=== PATIENT | female | born 1945 | race Caucasian/White ===

== ENCOUNTER → 2017-05-22 10:31 | Outpatient (CLI) | payer MEDICARE, BC, SELFPAY ==
[2017-05-22 12:24] LABS: Absolute Lymphocyte Count 1.19 X10^3/ul (0.83-4.51); Absolute Neutrophil Count 3.3 X10^3/uL (2.0-7.7); Basophil# 0.02 X10^3/uL; Basophil% 0.4 % (0-1); Eosinophil# 0.06 X10^3/uL; Eosinophils% 1.2 % (0-5); Hematocrit 46.4 % (37-47); Hemoglobin 15.3 g/dl (12.0-15.0); Lymphocyte # 1.19 X10^3/ul (4.0); Lymphocyte % 23.4 % (19-41); Mean Corpuscular Hgb 29.7 pg (27.0-32.0); Mean Corpuscular Volume 89.9 fL (81-99); Mean Platelet Vol. 12.7 fl (6.2-12.0); Monocyte# 0.49 X10^3/uL; Monocyte% 9.6 % (0-10); Neutrophil # 3.31 X10^3/uL (2.7-7.7); Neutrophil % 65.2 % (47-70); Platelet Count 206 K/mm3 (150-450); RBC Distribution Width CV 13.2 % (11.6-14.6); RBC Distribution Width SD 43.5 fl (35.1-43.9); Red Blood Count 5.16 M/mm3 (4.2-5.4); White Blood Count 5.1 K/mm3 (4.4-11.0)
[2017-05-22 12:27] LABS: POSITIVE COUNT NO; POSITIVE DIFFERENTIAL NO; POSITIVE MORPHOLOGY NO
[2017-05-22 12:31] LABS: ALB/GLOB Ratio 1.1 RATIO (0.9-2.4); AST(SGOT) 23 U/L (15-37); Alanine Aminotransfer ALT/SGPT 31 U/L (13-56); Albumin, Serum 3.9 g/dL (3.2-5.0); Alkaline Phosphatase 60 U/L (45-117); Anion Gap 8 (5-15); BUN 16 mg/dL (7-18); Calcium,Total 9.1 mg/dL (8.5-10.1); Chloride 108 mmol/L (98-107); Creatinine, Serum 0.94 mg/dL (0.55-1.02); EST Glomerular Filtration Rate 62 mL/min (>60); Est Glom Filt Rate - Afr Amer 75 mL/min (>60); Globulin 3.5 g/dL (2.2-4.2); Glucose 112 mg/dL (74-106); Protein, Total 7.4 g/dL (6.4-8.2); Sodium Level 140 mmol/L (136-145)
== END ==
PROVIDERS: Family Provider Family Medicine; PCP Family Medicine; Visit Provider Internal Medicine Rheumatology
DX: M06.4 Inflammatory polyarthropathy (principal); Z79.899 Other long term (current) drug therapy; M47.897 Other spondylosis, lumbosacral region; M21.40 Flat foot [pes planus] (acquired), unspecified foot; K21.9 Gastro-esophageal reflux disease without esophagitis; R51 Headache; J45.909 Unspecified asthma, uncomplicated; Z90.5 Acquired absence of kidney
CPT/HCPCS: 36415; 80053; 85025

== ENCOUNTER → 2017-06-14 14:57 | Outpatient (CLI) | payer MEDICARE, BC, SELFPAY ==
--- NOTE | 2017-06-14 15:02 | RAD_ITS ---
STUDY: X-RAY - THORACIC SPINE REASON FOR EXAM: Female, 71 years old. Thoracic back pain. TECHNIQUE: 2 view(s) of the thoracic spine were obtained. COMPARISON: Prior thoracic spine films of October 30, 2016 FINDINGS: Mild generalized increased thoracic kyphosis. There is no substantial scoliosis. Normal thoracic vertebrae and endplates. Mild disc narrowing and spondylitic endplate changes at most levels with moderate degenerative disc changes at T5-6 and T3-4. The soft tissue structures are unremarkable. RAD/Thoracic Spine 3 Views IMPRESSION: Mild increased kyphosis without a substantial scoliosis. Mild to moderate degenerative disc changes in the pattern as described above. No substantial changes from the prior examination. Negative for fracture, osteolytic or blastic bone lesion. Electronically Signed: Leena Pritchard MD at 15:30 EST , Service support ,
== END ==
PROVIDERS: Family Provider Family Medicine; PCP Family Medicine; Visit Provider Nurse Practitioner Family
DX: M54.6 Pain in thoracic spine (principal)
CPT/HCPCS: 72072

== ENCOUNTER → 2017-08-09 09:46 | Outpatient (CLI) | payer MEDICARE, BC, SELFPAY ==
[2017-08-09 12:06] LABS: Absolute Lymphocyte Count 1.04 X10^3/ul (0.83-4.51); Absolute Neutrophil Count 3.5 X10^3/uL (2.0-7.7); Basophil# 0.02 X10^3/uL; Basophil% 0.4 % (0-1); Eosinophil# 0.06 X10^3/uL; Eosinophils% 1.2 % (0-5); Hematocrit 44.9 % (37-47); Hemoglobin 14.9 g/dl (12.0-15.0); Lymphocyte # 1.04 X10^3/ul (4.0); Lymphocyte % 21.1 % (19-41); Mean Corp Hgb Conc 33.2 g/gl (32-36); Mean Corpuscular Hgb 30.1 pg (27.0-32.0); Mean Corpuscular Volume 90.7 fL (81-99); Mean Platelet Vol. 12.2 fl (6.2-12.0); Monocyte# 0.32 X10^3/uL; Monocyte% 6.5 % (0-10); Neutrophil % 70.8 % (47-70); Platelet Count 210 K/mm3 (150-450); RBC Distribution Width CV 13.2 % (11.6-14.6); RBC Distribution Width SD 43.6 fl (35.1-43.9); Red Blood Count 4.95 M/mm3 (4.2-5.4); White Blood Count 4.9 K/mm3 (4.4-11.0)
[2017-08-09 12:08] LABS: POSITIVE COUNT NO; POSITIVE DIFFERENTIAL NO; POSITIVE MORPHOLOGY NO
[2017-08-09 12:32] LABS: ALB/GLOB Ratio 1.2 RATIO (0.9-2.4); AST(SGOT) 19 U/L (15-37); Alanine Aminotransfer ALT/SGPT 21 U/L (13-56); Alkaline Phosphatase 56 U/L (45-117); Anion Gap 7 (5-15); BUN 15 mg/dL (7-18); BUN/Creat Ratio 15.4 RATIO (10-20); Calcium,Total 9.1 mg/dL (8.5-10.1); Chloride 108 mmol/L (98-107); Creatinine, Serum 0.97 mg/dL (0.55-1.02); EST Glomerular Filtration Rate 59 mL/min (>60); Est Glom Filt Rate - Afr Amer 72 mL/min (>60); Globulin 3.2 g/dL (2.2-4.2); Glucose 118 mg/dL (74-106); Potassium 4.3 mmol/L (3.5-5.1); Protein, Total 7.2 g/dL (6.4-8.2); Sodium Level 142 mmol/L (136-145)
== END ==
PROVIDERS: Family Provider Family Medicine; PCP Family Medicine; Visit Provider Internal Medicine Rheumatology
DX: M06.4 Inflammatory polyarthropathy (principal); R51 Headache; Z79.899 Other long term (current) drug therapy; M47.897 Other spondylosis, lumbosacral region; M21.40 Flat foot [pes planus] (acquired), unspecified foot; K21.9 Gastro-esophageal reflux disease without esophagitis; Z90.5 Acquired absence of kidney; J45.909 Unspecified asthma, uncomplicated
CPT/HCPCS: 36415; 80053; 85025

== ENCOUNTER → 2018-01-11 10:56 | Outpatient (CLI) | payer MEDICARE, BC, SELFPAY ==
--- NOTE | 2018-01-11 11:00 | RAD_ITS ---
STUDY: X-RAY - PELVIS AND RIGHT HIP REASON FOR EXAM: Female, 72 years old. Pain TECHNIQUE: Radiological exam, hip, unilateral, with pelvis when performed; 2 or 3 views. COMPARISON: 10/30/2016 FINDINGS: There is a non-specific bowel gas pattern. Normal visualized soft tissue structures. There is diffuse demineralization of the osseous structures. There is narrowing with cortical sclerosis and osteophyte formation of the sacroiliac joint consistent with degenerative osteoarthritic changes. Normal bilateral superior and inferior pubic rami. Normal pubic symphysis. Normal bilateral ischial tuberosities. Normal visualized femoral head. Normal acetabulum. There is mild articular joint space narrowing of the hip. RAD/HIP, UNI W/ Pelvis 2-3 Views IMPRESSION: Degenerative arthrosis, no demonstrated fracture or suspicious osseous lesion Electronically Signed: Howie Juarez MD at 9:41 EDT , Service support ,
== END ==
PROVIDERS: Family Provider Family Medicine; PCP Family Medicine; Referring Provider Family Medicine; Visit Provider Family Medicine
DX: M25.551 Pain in right hip (principal)
CPT/HCPCS: 73502

== ENCOUNTER → 2018-02-01 10:06 | Outpatient (CLI) | payer MEDICARE, BC, SELFPAY ==
[2018-02-01 12:20] LABS: Absolute Lymphocyte Count 0.83 X10^3/ul (0.83-4.51); Absolute Neutrophil Count 9.2 X10^3/uL (2.0-7.7); Basophil# 0.01 X10^3/uL; Basophil% 0.1 % (0-1); Eosinophil# 0.01 X10^3/uL; Eosinophils% 0.1 % (0-5); Hematocrit 44.9 % (37-47); Hemoglobin 14.9 g/dl (12.0-15.0); Lymphocyte # 0.83 X10^3/ul (4.0); Lymphocyte % 7.9 % (19-41); Mean Corp Hgb Conc 33.2 g/gl (32-36); Mean Corpuscular Hgb 29.9 pg (27.0-32.0); Mean Corpuscular Volume 90.2 fL (81-99); Mean Platelet Vol. 12.4 fl (6.2-12.0); Monocyte# 0.46 X10^3/uL; Monocyte% 4.4 % (0-10); Neutrophil # 9.15 X10^3/uL (2.7-7.7); Neutrophil % 87.3 % (47-70); Platelet Count 242 K/mm3 (150-450); RBC Distribution Width CV 13.5 % (11.6-14.6); Red Blood Count 4.98 M/mm3 (4.2-5.4); White Blood Count 10.5 K/mm3 (4.4-11.0)
[2018-02-01 12:28] LABS: POSITIVE COUNT NO; POSITIVE DIFFERENTIAL NO; POSITIVE MORPHOLOGY NO
[2018-02-01 12:46] LABS: ALB/GLOB Ratio 1.2 RATIO (0.9-2.4); AST(SGOT) 16 U/L (15-37); Alanine Aminotransfer ALT/SGPT 24 U/L (13-56); Albumin, Serum 4.1 g/dL (3.2-5.0); Alkaline Phosphatase 53 U/L (45-117); Anion Gap 8 (5-15); BUN 26 mg/dL (7-18); BUN/Creat Ratio 25.5 RATIO (10-20); Calcium,Total 9.1 mg/dL (8.5-10.1); Chloride 109 mmol/L (98-107); Creatinine, Serum 1.02 mg/dL (0.55-1.02); EST Glomerular Filtration Rate 56 mL/min (>60); Est Glom Filt Rate - Afr Amer 68 mL/min (>60); Globulin 3.4 g/dL (2.2-4.2); Glucose 128 mg/dL (74-106); Protein, Total 7.5 g/dL (6.4-8.2); Sodium Level 140 mmol/L (136-145)
== END ==
PROVIDERS: Family Provider Family Medicine; PCP Family Medicine; Referring Provider Internal Medicine Rheumatology; Visit Provider Internal Medicine Rheumatology
DX: M06.4 Inflammatory polyarthropathy (principal); M47.897 Other spondylosis, lumbosacral region; M21.40 Flat foot [pes planus] (acquired), unspecified foot; K21.9 Gastro-esophageal reflux disease without esophagitis; Z90.5 Acquired absence of kidney; R51 Headache; J45.909 Unspecified asthma, uncomplicated
CPT/HCPCS: 36415; 80053; 85025

== ENCOUNTER → 2018-04-25 10:43 | Outpatient (CLI) | payer MEDICARE, BC, SELFPAY ==
--- NOTE | 2018-04-25 10:47 | RAD_ITS ---
STUDY: X-RAY - LUMBAR SPINE REASON FOR EXAM: Female, 72 years old. Back pain. TECHNIQUE: 5 view(s) of the lumbar spine were obtained. COMPARISON: None FINDINGS: Slight scoliosis. Normal lumbar lordosis. Slight anterior listhesis L5-S1. Normal vertebral body height and alignment. No significant disc or endplate degenerative features. Minimal low lumbar facet arthropathy. Posterior elements intact. Unremarkable features of the lower ribs, upper medial pelvis and sacrum. No acute intra-abdominal process is evident. RAD/L/S Spine Min 4 Views IMPRESSION: Minimal spondylosis, predominantly low lumbar facet arthropathy without significant disc degenerative features. Slight anterior listhesis L5-S1. Slight scoliosis. Electronically Signed: Sedrick Martinez MD at 17:12 EST Tel , Service support ,
--- OUTSIDE RECORDS SUMMARY | 2018-06-30 01:32 | XMS RPT_ITS ---
:1945 Author Organization OHIP Support Name Relationship Address Phone SVENDEL Unavailable [address] + [place] [address] R Unavailable Unavailable Unavailable GLEN CULVER Unavailable [address] + [place] [address] DEL MACHUCA Unavailable [address] + [place] [address] R Unavailable Unavailable Unavailable GLEN CULVER Unavailable [address] + [place] [address] DEL MACHUCA Unavailable [address] + [place] [address] R Unavailable Unavailable Unavailable GLEN CULVER Unavailable [address] + [place] [address] DEL MACHUCA Unavailable [address] [phone] [place] [address] R Unavailable Unavailable Unavailable GLEN CULVER Unavailable [address] + [place] [address] DEL MACHUCA Unavailable [address] [phone] [place] [address] R Unavailable Unavailable Unavailable GLEN CULVER Unavailable [address] + [place] [address] DEL MACHUCA Unavailable [address] + [place] [address] R Unavailable Unavailable Unavailable GLEN CULVER Unavailable [address] [phone] [place] [address] Care Team Providers Name Role Phone Daxa Patino OIL AND GAS SUPERINTENDENT-C Attending Unavailable Daxa Patino NP-C Referring Unavailable Ricardo Reynolds Primary Care Unavailable Shyla Randle Attending Unavailable Shyla Randle Referring Unavailable Ricardo Reynolds Primary Care Unavailable Prebish, Daxa OIL AND GAS SUPERINTENDENT-C Attending Unavailable Prebish, Daxa OIL AND GAS SUPERINTENDENT-C Referring Unavailable Rodolfo, Ricardo Primary Care Unavailable JoselanShyla mendes Attending Unavailable Rodolfo Ricardo Primary Care Unavailable RodolfoRicardo cano Attending Unavailable Moi Reynolds Referring Unavailable Rodolfo, Ricardo Primary Care Unavailable Vellancinthya, Shyla Attending Unavailable Velgrayson, Shyla Referring Unavailable Rodolfo, Ricardo Primary Care Unavailable PROBLEMS PROBLEMS DATE TYPE CONDITION / CODE ATTENDING STATUS SOURCE 02/01/2018 Unknown 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 / Community M06.4(ICD-10) Hospital Repository 02/01/2018 Unknown M47.897 - Other Vellancinthya, Shyla Active [place] spondylosis, Community lumbosacral region / Hospital M47.897(ICD-10) Repository 02/01/2018 Unknown M21.40 - Flat foot Razia Shyla Active [place] [pes planus] [facility] (acquired), Hospital unspecified foot / Repository M21.40(ICD-10) 02/01/2018 Unknown K21.9 - Vellancinthya Shyla Active [place] Gastro-esophageal [facility] reflux disease Hospital without esophagitis / Repository K21.9(ICD-10) 02/01/2018 Unknown Z90.5 - 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 / Community Z90.5(ICD-10) Hospital Repository 02/01/2018 Unknown R51 - Headache / Vellancinthya Shyla Active [place] R51(ICD-10) [facility] Repository 02/01/2018 Unknown J45.909 - Unspecified Velgrayson Shyla Active [place] asthma, uncomplicated Community / J45.909(ICD-10) Hospital Repository 01/11/2018 Unknown M25.551 - Pain in RodolfoRicardo cano Active [place] right hip / Community M25.551(ICD-10) Hospital Repository 06/14/2017 Unknown M54.6 - Pain in Prebish, Daxa Active [place] thoracic spine / OIL AND GAS SUPERINTENDENT-C Community M54.6(ICD-10) Hospital Repository PROCEDURES PROCEDURES No Procedure Records FoundRESULTS RESULTS L/S SPINE MIN 4 Observed: 04/25/2018 Status: F Source: [place] VIEWS 10:47 AM [facility] REPOSITORY [facility] Imaging Services [address] [place] [address] L/S Spine Min 4 Views MR#: [id number] Acct: [id number] Name: MARTA MACHUCA Rep #: [id number] : 1945 F 72 From: Sedrick Martinez MD PCP: Ricardo Reynolds DO Status: REG CLI Study: L/S Spine Min 4 Views Date of Exam: 04/25/18 Exam# [id number] Ordering Dr: Daxa Patino STUDY: X-RAY - LUMBAR SPINE REASON FOR EXAM: Female, 72 years old. Back pain. TECHNIQUE: 5 view(s) of the lumbar spine were obtained. COMPARISON: None FINDINGS: Slight scoliosis. Normal lumbar lordosis. Slight anterior listhesis L5-S1. Normal vertebral body height and alignment. No significant disc or endplate degenerative features. Minimal low lumbar facet arthropathy. Posterior elements intact. Unremarkable features of the lower ribs, upper medial pelvis and sacrum. No acute intra-abdominal process is evident. RAD/L/S Spine Min 4 Views IMPRESSION: Minimal spondylosis, predominantly low lumbar facet arthropathy without significant disc degenerative features. Slight anterior listhesis L5-S1. Slight scoliosis. Electronically Signed: Sedrick Martinez MD at 17:12 EST Tel , Service support , CC: Daxa Patino; Ricardo Reynolds DO Databases Software Consultant: Signed CBC W/DIFF, AUTOMATED Collected: 02/01/2018 Status: F Source: [place] 10:19 AM [facility] REPOSITORY TYPE CODE TESTS RESULT OUT OF RANGE REFERENCE UNITS LAB L100.1000 4.4-11.0 K/mm3 Normal WBC 10.5 LAB L100.1200 4.2-5.4 M/mm3 Normal RBC 4.98 LAB L100.1300 12.0-15.0 g/dl Normal HGB 14.9 LAB L100.1400 37-47 % Normal HCT 44.9 LAB L100.1500 81-99 fL Normal MCV 90.2 LAB L100.1600 27.0-32.0 pg Normal MCH 29.9 LAB L100.1700 32-36 g/gl Normal MCHC 33.2 LAB L100.1810 11.6-14.6 % Normal RDW CV 13.5 LAB L100.1820 35.1-43.9 fl High RDW SD 44.0 LAB L100.1900 150-450 K/mm3 Normal PLT 242 LAB L100.2000 6.2-12.0 fl High MPV 12.4 LAB L100.2100 47-70 % High NEUT% 87.3 LAB L100.2200 19-41 % Low LY% 7.9 LAB L100.2300 0-10 % Normal MONO% 4.4 LAB L100.2400 0-5 % Normal EO% 0.1 LAB L100.2500 0-1 % Normal BASO% 0.1 LAB L100.2550 0.0-0.9 % Normal IM GRAN % 0.200 Result Comment: IG% - Immature Granulocytes (promyelocytes, myelocytes and metamyelocytes) > 1% indicates that a LEFT SHIFT is Present. LAB L100.2620 2.0-7.7 X10 3/uL High Absolute Neut 9.2 LAB L100.2720 0.83-4.51 X10 3/ul Normal Absolute Lymph 0.83 Performed By: #### L100.0100 #### [facility] [address] [place], [place], [address] COMPREHENSIVE METABOLIC Collected: 02/01/2018 Status: F Source: [facility] 10:19 AM [facility] REPOSITORY TYPE CODE TESTS RESULT OUT OF RANGE REFERENCE UNITS LAB L501.0100 74-106 mg/dL High GLU 128 Result Comment: Fasting Glucose result greater than or equal to 126 mg/dL suggests DIABETES MELLITUS per A.D.A. criteria. Please note revised GLUCOSE reference range effective 2017. LAB L501.1000 7-18 mg/dL High BUN 26 LAB L501.1100 0.55-1.02 mg/dL Normal CREAT,SERUM 1.02 Result Comment: The validity of the calculated GFR AND GFRAA in patients over 70 years has not been determined. Clinical correlation is essential. LAB L501.1110 >60 mL/min Low EST GFR 56 Result Comment: Non- GFR Calc LAB L501.1115 >60 mL/min Normal EST GFR - AA 68 Result Comment: GFR Calc LAB L501.1300 10-20 RATIO High BUN/CRE 25.5 LAB L501.1500 6.4-8.2 g/dL T Normal PROT 7.5 LAB L501.1800 3.2-5.0 g/dL Normal ALB 4.1 LAB L501.1950 2.2-4.2 g/dL Normal GLOB 3.4 LAB L501.2000 0.9-2.4 RATIO Normal A/G 1.2 LAB L501.2200 8.5-10.1 mg/dL CA Normal 9.1 LAB L501.4100 15-37 U/L Normal AST 16 LAB L501.4305 45-117 U/L Normal ALK P 53 LAB L501.4405 13-56 U/L Normal ALT 24 LAB L501.4600 0.20-1.00 mg/dL T Normal BILI 0.80 LAB L501.5300 136-145 mmol/L NA Normal 140 LAB L501.5600 3.5-5.1 mmol/L K Normal 4.0 LAB L501.5900 98-107 mmol/L High CL 109 LAB L501.6100 21.0-32.0 mmol/L Normal CO2 23.0 LAB L501.6200 5-15 Normal GAP 8 Performed By: #### L500.4050 #### [facility] [address] [facility] [place], [address] HIP, UNI W/ PELVIS Observed: 01/11/2018 Status: F Source: [place] 2-3 VIEWS 11:00 AM [facility] REPOSITORY [facility] Imaging Services [address] [place] [address] HIP, UNI W/ Pelvis 2-3 Views MR#: [id number] Acct: [id number] Name: MARTA MACHUCA Rep #: [id number] : 1945 F 72 From: Iain Juarez MD PCP: Ricardo Reynolds DO Status: REG CLI Study: HIP, UNI W/ Pelvis 2-3 Views Date of Exam: 01/11/18 Exam# [id number] Ordering Dr: Ricardo Reynolds DO STUDY: X-RAY - PELVIS AND RIGHT HIP REASON FOR EXAM: Female, 72 years old. Pain TECHNIQUE: Radiological exam, hip, unilateral, with pelvis when performed; 2 or 3 views. COMPARISON: 10/30/2016 FINDINGS: There is a non-specific bowel gas pattern. Normal visualized soft tissue structures. There is diffuse demineralization of the osseous structures. There is narrowing with cortical sclerosis and osteophyte formation of the sacroiliac joint consistent with degenerative osteoarthritic changes. Normal bilateral superior and inferior pubic rami. Normal pubic symphysis. Normal bilateral ischial tuberosities. Normal visualized femoral head. Normal acetabulum. There is mild articular joint space narrowing of the hip. RAD/HIP, UNI W/ Pelvis 2-3 Views IMPRESSION: Degenerative arthrosis, no demonstrated fracture or suspicious osseous lesion Electronically Signed: Howie Juarez MD at 9:41 EDT , Service support , CC: Ricardo Reynolds DO Databases Software Consultant: Signed CBC W/DIFF, AUTOMATED Collected: 08/09/2017 Status: F Source: [place] 9:54 AM [facility] REPOSITORY TYPE CODE TESTS RESULT OUT OF RANGE REFERENCE UNITS LAB L100.1000 4.4-11.0 K/mm3 Normal WBC 4.9 LAB L100.1200 4.2-5.4 M/mm3 Normal RBC 4.95 LAB L100.1300 12.0-15.0 g/dl Normal HGB 14.9 LAB L100.1400 37-47 % Normal HCT 44.9 LAB L100.1500 81-99 fL Normal MCV 90.7 LAB L100.1600 27.0-32.0 pg Normal MCH 30.1 LAB L100.1700 32-36 g/gl Normal MCHC 33.2 LAB L100.1810 11.6-14.6 % Normal RDW CV 13.2 LAB L100.1820 35.1-43.9 fl Normal RDW SD 43.6 LAB L100.1900 150-450 K/mm3 Normal PLT 210 LAB L100.2000 6.2-12.0 fl High MPV 12.2 LAB L100.2100 47-70 % High NEUT% 70.8 LAB L100.2200 19-41 % Normal LY% 21.1 LAB L100.2300 0-10 % Normal MONO% 6.5 LAB L100.2400 0-5 % Normal EO% 1.2 LAB L100.2500 0-1 % Normal BASO% 0.4 LAB L100.2550 0.0-0.9 % Normal IM GRAN % 0.000 Result Comment: IG% - Immature Granulocytes (promyelocytes, myelocytes and metamyelocytes) > 1% indicates that a LEFT SHIFT is Present. LAB L100.2620 2.0-7.7 X10 3/uL Normal Absolute Neut 3.5 LAB L100.2720 0.83-4.51 X10 3/ul Normal Absolute Lymph 1.04 Performed By: #### L100.0100 #### [facility] [address] [place], [place], [address] COMPREHENSIVE METABOLIC Collected: 08/09/2017 Status: F Source: [facility] 9:54 AM [facility] REPOSITORY TYPE CODE TESTS RESULT OUT OF RANGE REFERENCE UNITS LAB L501.0100 74-106 mg/dL High GLU 118 Result Comment: Fasting Glucose result from 100 to 125 mg/dL suggests IMPAIRED HOMEOSTASIS per A.D.A. criteria. Please note revised GLUCOSE reference range effective 2017. LAB L501.1000 7-18 mg/dL Normal BUN 15 LAB L501.1100 0.55-1.02 mg/dL Normal CREAT,SERUM 0.97 Result Comment: The validity of the calculated GFR AND GFRAA in patients over 70 years has not been determined. Clinical correlation is essential. LAB L501.1110 >60 mL/min Low EST GFR 59 Result Comment: Non- GFR Calc LAB L501.1115 >60 mL/min Normal EST GFR - AA 72 Result Comment: GFR Calc LAB L501.1300 10-20 RATIO Normal BUN/CRE 15.4 LAB L501.1500 6.4-8.2 g/dL T Normal PROT 7.2 LAB L501.1800 3.2-5.0 g/dL Normal ALB 4.0 LAB L501.1950 2.2-4.2 g/dL Normal GLOB 3.2 LAB L501.2000 0.9-2.4 RATIO Normal A/G 1.2 LAB L501.2200 8.5-10.1 mg/dL CA Normal 9.1 LAB L501.4100 15-37 U/L Normal AST 19 LAB L501.4305 45-117 U/L Normal ALK P 56 LAB L501.4405 13-56 U/L Normal ALT 21 LAB L501.4600 0.20-1.00 mg/dL T Normal BILI 0.90 LAB L501.5300 136-145 mmol/L NA Normal 142 LAB L501.5600 3.5-5.1 mmol/L K Normal 4.3 LAB L501.5900 98-107 mmol/L High CL 108 LAB L501.6100 21.0-32.0 mmol/L Normal CO2 27.0 LAB L501.6200 5-15 Normal GAP 7 Performed By: #### L500.4050 #### [facility] [address] [facility] [place], [address] THORACIC SPINE 3 Observed: 06/14/2017 Status: F Source: [place] VIEWS 3:02 PM [facility] REPOSITORY [facility] Imaging Services [address] [place] [address] Thoracic Spine 3 Views MR#: [id number] Acct: [id number] Name: MARTA MACHUCA Rep #: [id number] : 1945 F 71 From: Leena Pritchard MD PCP: Ricardo Reynolds DO Status: REG CLI Study: Thoracic Spine 3 Views Date of Exam: 06/14/17 Exam# [id number] Ordering Dr: Daxa Patino OIL AND GAS SUPERINTENDENT-Scar STUDY: X-RAY - THORACIC SPINE REASON FOR EXAM: Female, 71 years old. Thoracic back pain. TECHNIQUE: 2 view(s) of the thoracic spine were obtained. COMPARISON: Prior thoracic spine films of October 30, 2016 FINDINGS: Mild generalized increased thoracic kyphosis. There is no substantial scoliosis. Normal thoracic vertebrae and endplates. Mild disc narrowing and spondylitic endplate changes at most levels with moderate degenerative disc changes at T5-6 and T3-4. The soft tissue structures are unremarkable. RAD/Thoracic Spine 3 Views IMPRESSION: Mild increased kyphosis without a substantial scoliosis. Mild to moderate degenerative disc changes in the pattern as described above. No substantial changes from the prior examination. Negative for fracture, osteolytic or blastic bone lesion. Electronically Signed: Leena Pritchard MD at 15:30 EST , Service support , CC: Daxa Patino; Ricardo Reynolds DO Databases Software Consultant: Signed CBC W/DIFF, AUTOMATED Collected: 05/22/2017 Status: F Source: [place] 10:37 AM [facility] REPOSITORY TYPE CODE TESTS RESULT OUT OF RANGE REFERENCE UNITS LAB L100.1000 4.4-11.0 K/mm3 Normal WBC 5.1 LAB L100.1200 4.2-5.4 M/mm3 Normal RBC 5.16 LAB L100.1300 12.0-15.0 g/dl High HGB 15.3 LAB L100.1400 37-47 % Normal HCT 46.4 LAB L100.1500 81-99 fL Normal MCV 89.9 LAB L100.1600 27.0-32.0 pg Normal MCH 29.7 LAB L100.1700 32-36 g/gl Normal MCHC 33.0 LAB L100.1810 11.6-14.6 % Normal RDW CV 13.2 LAB L100.1820 35.1-43.9 fl Normal RDW SD 43.5 LAB L100.1900 150-450 K/mm3 Normal PLT 206 LAB L100.2000 6.2-12.0 fl High MPV 12.7 LAB L100.2100 47-70 % Normal NEUT% 65.2 LAB L100.2200 19-41 % Normal LY% 23.4 LAB L100.2300 0-10 % Normal MONO% 9.6 LAB L100.2400 0-5 % Normal EO% 1.2 LAB L100.2500 0-1 % Normal BASO% 0.4 LAB L100.2550 0.0-0.9 % Normal IM GRAN % 0.200 Result Comment: IG% - Immature Granulocytes (promyelocytes, myelocytes and metamyelocytes) > 1% indicates that a LEFT SHIFT is Present. LAB L100.2620 2.0-7.7 X10 3/uL Normal Absolute Neut 3.3 LAB L100.2720 0.83-4.51 X10 3/ul Normal Absolute Lymph 1.19 Performed By: #### L100.0100 #### [facility] [address] [place], [place], [address] COMPREHENSIVE METABOLIC Collected: 05/22/2017 Status: F Source: [facility] 10:37 AM [facility] REPOSITORY TYPE CODE TESTS RESULT OUT OF RANGE REFERENCE UNITS LAB L501.0100 74-106 mg/dL High GLU 112 Result Comment: Fasting Glucose result from 100 to 125 mg/dL suggests IMPAIRED HOMEOSTASIS per A.D.A. criteria. Please note revised GLUCOSE reference range effective 2017. LAB L501.1000 7-18 mg/dL Normal BUN 16 LAB L501.1100 0.55-1.02 mg/dL Normal CREAT,SERUM 0.94 Result Comment: The validity of the calculated GFR AND GFRAA in patients over 70 years has not been determined. Clinical correlation is essential. LAB L501.1110 >60 mL/min Normal EST GFR 62 Result Comment: Non- GFR Calc LAB L501.1115 >60 mL/min Normal EST GFR - AA 75 Result Comment: GFR Calc LAB L501.1300 10-20 RATIO Normal BUN/CRE 17.0 LAB L501.1500 6.4-8.2 g/dL T Normal PROT 7.4 LAB L501.1800 3.2-5.0 g/dL Normal ALB 3.9 LAB L501.1950 2.2-4.2 g/dL Normal GLOB 3.5 LAB L501.2000 0.9-2.4 RATIO Normal A/G 1.1 LAB L501.2200 8.5-10.1 mg/dL CA Normal 9.1 LAB L501.4100 15-37 U/L Normal AST 23 LAB L501.4305 45-117 U/L Normal ALK P 60 LAB L501.4405 13-56 U/L Normal ALT 31 Result Comment: Please note revised ALT reference range effective 2017. LAB L501.4600 0.20-1.00 mg/dL Normal T BILI 0.90 LAB L501.5300 136-145 mmol/L Normal NA 140 LAB L501.5600 3.5-5.1 mmol/L Normal K 4.0 LAB L501.5900 98-107 mmol/L High CL 108 LAB L501.6100 21.0-32.0 mmol/L Normal CO2 24.0 LAB L501.6200 5-15 Normal GAP 8 Performed By: #### L500.4050 #### [facility] [address], [address] ALLERGIES ALLERGIES DATE TYPE / CODE NAME / CODE REACTION SEVERITY SOURCE 08/18/2013 Drug codeine/F006 Vomiting Unknown [facility] Allergy/4160 166387([facility]ly [facility] [address](SNOMED M) Repository CT) ENCOUNTERS ENCOUNTERS ADMIT/DISCHARGE ACCOUNT ADMITTING ENCOUNTER LOCATION SOURCE NUMBER CLASS 04/25/2018 [id number] [place] [facility] ing:MTRAD Repository 02/01/2018 [id number] [place] [facility] ing:MTLAB Repository 01/11/2018 [id number] Amb[place] [facility] ing:MTRAD Repository 08/09/2017 [id number] Ambulatory [place] [facility] ing:MTLAB Repository 06/14/2017 [id number] Ambulatory [place] [facility] ing:MTRAD Repository 05/22/2017 [id number] Ambulatory [place] 5 [facility] ing:MTLAB Repository PAYERS PAYERS ENCOUNTER GUARANTOR PAYER SUBSCRIBER SOURCE 04/25/2018 DEL E Primary MARTA A [place] [id number] Insurance:MEDICARE DAVISDOB: Community [place] [facility] [id number] Number: Repository [address]Cei: 330 [id number] [phone] () Date:2018-04-25 04/25/2018 Secondary MARTA A [place] Insurance:ANTHEMPolic DAVISDOB: Community y Number: [id number] [id number] Repository Date:[id number] [address] [place] [address]CI: 04/25/2018 Tertiary NOT GIVENUNK [place] Insurance:SELF PAY [facility] Number: Effective Repository Date:2018-04-25 02/01/2018 DEL [place] Primary MARTA A [place] [id number] Insurance:MEDICARE DAVISDOB: Community [place] [facility] [id number] Number: Repository [address]Vnq: 330 [id number] [phone] () Date:2018-02-01 02/01/2018 Secondary MARTA A [place] Insurance:ANTHEMPolic DAVISDOB: Community y Number: [id number] Hospital [id number] Repository Date:9216-10-84QO [address] [place] [address] 801[address]JC: 02/01/2018 Tertiary NOT GIVENUNK [place] Insurance:SELF PAY [facility] Number: Effective Repository Date:2018-02-01 01/11/2018 DEL [place] Primary MARTA A [place] [id number] Insurance:MEDICARE DAVISDOB: Community [place] [facility] [id number] Number: Repository [address]Ubj: 330 [id number] [phone] () Date:2018-01-11 01/11/2018 Secondary MARTA A [place] Insurance:ANTHEMPolic DAVISDOB: Community y Number: [id number] Hospital [id number] Repository Date:2475-06-06ZL [address] [place] [address] 23318ZZ: 01/11/2018 Tertiary NOT GIVENUNK [place] Insurance:SELF PAY [facility] Number: Effective Repository Date:2018-01-11 08/09/2017 Del [place] Primary MARTA A [place] [id number] Insurance:MEDICARE DAVISDOB: Community [place] [facility] [id number] [place] Number[facility] Repository [address]Ylh: [id number] [phone] Date:2017-08-09 2 (HP) 08/09/2017 Secondary MARTA A [place] Insurance:ANTHEMPolic DAVISDOB: Community y Number: [id number] Hospital [id number] Repository Date:5054-44-74DO [id number] [place] [address] 30251BF: 08/09/2017 Tertiary NOT GIVENUNK [place] Insurance:SELF PAY [facility] Number: Effective Repository Date:2017-08-09 06/14/2017 Del [place] Primary MARTA A [place] [id number] Insurance:MEDICARE DAVISDOB: Community [place] [facility] [id number] [place] Number: Repository [address]Cnl: [id number] [phone] Date:2017-06-14 2 (HP) 06/14/2017 Secondary MARTA A [place] Insurance:ANTHEMPolic DAVISDOB: Community y Number: [id number] Hospital [id number] Repository Date:7497-66-28MZ [id number] [place] [address] 11455IU: 06/14/2017 Tertiary NOT GIVENUNK [place] Insurance:SELF PAY [facility] Number: Effective Repository Date:2017-06-14 05/22/2017 Del [place] Primary MARTA A [place] [id number] Insurance:MEDICARE DAVISDOB: Community [place] [facility] [id number] [place] Number: Repository [address]Pyd: [id number] [phone] Date:2017-05-22 2 (HP) 05/22/2017 Secondary MARTA A [place] Insurance:ANTHEMPolic DAVISDOB: Community y Number: [id number] Hospital [id number] Repository Date:1704-77-51FU [place] [address], [place] [address]DY: 05/22/2017 Tertiary NOT GIVENUNK [place] Insurance:SELF PAY [facility] Number: Effective Repository Date:2017-05-22
== END ==
PROVIDERS: Family Provider Family Medicine; PCP Family Medicine; Referring Provider Nurse Practitioner Family; Visit Provider Nurse Practitioner Family
DX: M54.9 Dorsalgia, unspecified (principal)
CPT/HCPCS: 72110

== ENCOUNTER → 2018-05-22 11:06 | Outpatient (CLI) | payer MEDICARE, BC, SELFPAY ==
--- NOTE | 2018-05-22 11:14 | MRI_ITS ---
HISTORY: pain low back and rt leg x 1 month EXAM/TECHNIQUE: MR Spine Lumbar W/O Contrast: 1.5 Sherrie, multiplanar multisequence. COMPARISON: 04/25/18 lumbar spine radiographs. FINDINGS: # of images incl. paperwork: 121 No fracture or acute signal changes in the vertebrae. Mild, degenerative, 2 mm anterolisthesis of L5 on S1 again demonstrated. Incidental hemangiomas in the L2 and L3 vertebral bodies. Conus medullaris terminates at the level of the L1 inferior endplate with normal contour and signal. Multilevel disc desiccation, and prominent facet degeneration lower lumbar spine. No acute findings in the paraspinal soft tissues. Right kidney not identified. At L1-2, L2-3, and L3-4, small diffuse disc bulge and moderate facet degeneration cause only mild narrowing. At L4-5, moderate diffuse disc bulge and moderate bilateral facet degeneration moderately narrows the subarticular zones, with disc abutting but not compressing the traversing bilateral L5 nerve roots. Only mild foraminal narrowing. At L5-S1, marked bilateral facet degeneration with mild degenerative anterolisthesis, and unroofing of the disc, causes mild spinal canal narrowing with disc abutting but not displacing or compressing the traversing bilateral S1 nerve roots in the subarticular zones, and causing mild to moderate bilateral foraminal narrowing with disc abutting but not compressing the exiting bilateral L5 nerve roots. MRI/Spine Lumbar (Routine) IMPRESSION: Multilevel degenerative changes particularly at L5-S1, with disc abutting not compressing the bilateral L5 and S1 nerve roots as described above. at 1220 Reported and signed by: Matheus Lim MD Electronically Signed: Matheus Lim, at 12:19 EST Tel , Service support ,
== END ==
PROVIDERS: Family Provider Family Medicine; PCP Family Medicine; Referring Provider Anesthesiology Pain Medicine; Visit Provider Anesthesiology Pain Medicine
DX: M54.5 Low back pain (principal); M79.604 Pain in right leg
CPT/HCPCS: 72148

== ENCOUNTER → 2018-06-27 10:31 | Outpatient (CLI) | payer MEDICARE, BC, SELFPAY ==
[2018-06-27 12:04] LABS: Absolute Lymphocyte Count 1.16 X10^3/ul (0.83-4.51); Absolute Neutrophil Count 10.3 X10^3/uL (2.0-7.7); Basophil# 0.01 X10^3/uL; Basophil% 0.1 % (0-1); Eosinophil# 0.02 X10^3/uL; Eosinophils% 0.2 % (0-5); Hematocrit 46.1 % (37-47); Hemoglobin 15.1 g/dl (12.0-15.0); Lymphocyte # 1.16 X10^3/ul (4.0); Lymphocyte % 9.3 % (19-41); Mean Corp Hgb Conc 32.8 g/gl (32-36); Mean Corpuscular Hgb 30.6 pg (27.0-32.0); Mean Corpuscular Volume 93.3 fL (81-99); Mean Platelet Vol. 11.8 fl (6.2-12.0); Monocyte# 0.95 X10^3/uL; Monocyte% 7.6 % (0-10); Neutrophil # 10.29 X10^3/uL (2.7-7.7); Neutrophil % 82.6 % (47-70); Platelet Count 272 K/mm3 (150-450); RBC Distribution Width SD 43.5 fl (35.1-43.9); Red Blood Count 4.94 M/mm3 (4.2-5.4); White Blood Count 12.5 K/mm3 (4.4-11.0)
[2018-06-27 12:07] LABS: POSITIVE COUNT NO; POSITIVE DIFFERENTIAL NO; POSITIVE MORPHOLOGY NO
[2018-06-27 12:17] LABS: ALB/GLOB Ratio 1.2 RATIO (0.9-2.4); AST(SGOT) 20 U/L (15-37); Alanine Aminotransfer ALT/SGPT 27 U/L (13-56); Albumin, Serum 4.1 g/dL (3.2-5.0); Alkaline Phosphatase 54 U/L (45-117); Anion Gap 6 (5-15); BUN 20 mg/dL (7-18); BUN/Creat Ratio 19.6 RATIO (10-20); Chloride 108 mmol/L (98-107); Creatinine, Serum 1.02 mg/dL (0.55-1.02); EST Glomerular Filtration Rate 56 mL/min (>60); Est Glom Filt Rate - Afr Amer 68 mL/min (>60); Globulin 3.4 g/dL (2.2-4.2); Glucose 103 mg/dL (74-106); Potassium 4.2 mmol/L (3.5-5.1); Protein, Total 7.5 g/dL (6.4-8.2); Sodium Level 139 mmol/L (136-145)
== END ==
PROVIDERS: Family Provider Family Medicine; PCP Family Medicine; Referring Provider Internal Medicine Rheumatology; Visit Provider Internal Medicine Rheumatology
DX: M06.4 Inflammatory polyarthropathy (principal); M47.897 Other spondylosis, lumbosacral region; M21.40 Flat foot [pes planus] (acquired), unspecified foot; K21.9 Gastro-esophageal reflux disease without esophagitis; R51 Headache; J45.909 Unspecified asthma, uncomplicated; Z90.5 Acquired absence of kidney
CPT/HCPCS: 36415; 80053; 85025

== ENCOUNTER → 2018-07-09 10:43 | Outpatient (CLI) | payer MEDICARE, BC, SELFPAY ==
--- NOTE | 2018-07-09 10:47 | RAD_ITS ---
STUDY: X-RAY - PELVIS AND RIGHT HIP REASON FOR EXAM: Right hip/groin pain. TECHNIQUE: 2 views of the pelvis and hip. COMPARISON: Radiographs 01/11/2018 and 10/30/2016. FINDINGS: There is no interval change of the soft tissue calcification overlying the right superior pubic ramus. Normal bilateral iliac wings, sacroiliac joints and visualized sacrum. Normal bilateral superior and inferior pubic rami. Normal pubic symphysis. There is mild enthesopathy of the right ischial tuberosity. Normal visualized femoral head. Normal acetabulum. Normal hip joint. RAD/HIP, UNI W/ Pelvis 2-3 Views IMPRESSION: Mild enthesopathy of the right ischial tuberosity. Unchanged soft tissue calcification. Otherwise, unremarkable x-ray examination of the pelvis and right hip. Electronically Signed: Wilian Chavez MD at 15:29 EDT Tel , Service support ,
== END ==
LOC: MTLAB 10:45 → MTRAD 10:46
PROVIDERS: Family Provider Family Medicine; PCP Family Medicine; Referring Provider Anesthesiology Pain Medicine; Visit Provider Anesthesiology Pain Medicine
DX: R10.31 Right lower quadrant pain (principal); M25.551 Pain in right hip
CPT/HCPCS: 73502

== ENCOUNTER → 2018-09-13 09:33 | Outpatient (CLI) | payer MEDICARE, BC, SELFPAY ==
[2018-09-13 12:43] LABS: Absolute Lymphocyte Count 1.29 X10^3/ul (0.83-4.51); Absolute Neutrophil Count 5.5 X10^3/uL (2.0-7.7); Basophil# 0.03 X10^3/uL; Basophil% 0.4 % (0-1); Eosinophil# 0.07 X10^3/uL; Eosinophils% 0.9 % (0-5); Hematocrit 45.4 % (37-47); Hemoglobin 14.9 g/dl (12.0-15.0); Lymphocyte # 1.29 X10^3/ul (4.0); Lymphocyte % 17.2 % (19-41); Mean Corp Hgb Conc 32.8 g/gl (32-36); Mean Corpuscular Hgb 29.6 pg (27.0-32.0); Mean Corpuscular Volume 90.3 fL (81-99); Mean Platelet Vol. 12.8 fl (6.2-12.0); Monocyte# 0.57 X10^3/uL; Monocyte% 7.6 % (0-10); Neutrophil # 5.54 X10^3/uL (2.7-7.7); Neutrophil % 73.8 % (47-70); Platelet Count 247 K/mm3 (150-450); RBC Distribution Width CV 12.9 % (11.6-14.6); RBC Distribution Width SD 42.5 fl (35.1-43.9); Red Blood Count 5.03 M/mm3 (4.2-5.4); White Blood Count 7.5 K/mm3 (4.4-11.0)
[2018-09-13 12:49] LABS: POSITIVE COUNT NO; POSITIVE DIFFERENTIAL NO; POSITIVE MORPHOLOGY NO
[2018-09-13 13:18] LABS: ALB/GLOB Ratio 1.2 RATIO (0.9-2.4); AST(SGOT) 21 U/L (15-37); Alanine Aminotransfer ALT/SGPT 25 U/L (13-56); Alkaline Phosphatase 60 U/L (45-117); Anion Gap 7 (5-15); BUN 16 mg/dL (7-18); BUN/Creat Ratio 17.6 RATIO (10-20); Calcium,Total 9.3 mg/dL (8.5-10.1); Chloride 108 mmol/L (98-107); Creatinine, Serum 0.91 mg/dL (0.55-1.02); EST Glomerular Filtration Rate 64 mL/min (>60); Est Glom Filt Rate - Afr Amer 78 mL/min (>60); Globulin 3.2 g/dL (2.2-4.2); Glucose 87 mg/dL (74-106); Potassium 3.8 mmol/L (3.5-5.1); Protein, Total 7.2 g/dL (6.4-8.2); Sodium Level 141 mmol/L (136-145)
== END ==
PROVIDERS: Family Provider Family Medicine; PCP Family Medicine; Referring Provider Internal Medicine Rheumatology; Visit Provider Internal Medicine Rheumatology
DX: M06.4 Inflammatory polyarthropathy (principal); M47.897 Other spondylosis, lumbosacral region; M25.551 Pain in right hip; M21.40 Flat foot [pes planus] (acquired), unspecified foot; K21.9 Gastro-esophageal reflux disease without esophagitis; Z90.5 Acquired absence of kidney; R51 Headache; J45.909 Unspecified asthma, uncomplicated
CPT/HCPCS: 36415; 80053; 85025

== ENCOUNTER → 2018-11-01 14:02 | Outpatient (CLI) | payer MEDICARE, BC, SELFPAY ==
--- NOTE | 2018-11-01 14:25 | CT_ITS ---
STUDY: CT BRAIN WITH AND WITHOUT CONTRAST REASON FOR EXAM: Female, 72 years old. Vertigo RADIATION DOSAGE (If Supplied By Facility): CTDIvol = ( 60.81 ) mGy, DLP = ( 2081.18 ) mGycm TECHNIQUE: Transaxial CT imaging of the brain was performed pre and post contrast administration. The examination was performed with intravenous administration of 50 IV Isovue 370. Individualized dose optimization techniques were used for this CT. COMPARISON: None. FINDINGS: Normal soft tissue structures. Normal calvarium. Normal size ventricles and extra-axial spaces for the patient's age. Septum cavum pellucidum and septum vergae . Normal white matter tracts of the cerebral hemispheres. Normal basal ganglia and thalami. Normal brainstem. Normal cerebellum. There are bilateral small vertebral artery calcifications without stenosis. Both vertebral arteries are normal in size. Normal basilar artery. Normal visualized internal carotid arteries, middle, anterior and posterior cerebral arteries without aneurysm, vascular malformation or enhancing lesion. Normal venous structures and venous sinuses. There is no intracranial hemorrhage. There are no findings of an acute ischemic infarction. Normal visualized paranasal sinuses. Tiny osteoma of the right anterior ethmoid sinus. Multiple opacified air cells at the tip of the right mastoid process without opacification of the mastoid antrum or middle ear. Few opacified air cells at the tip of the left mastoid process without opacification of the mastoid antrum or middle ear. CT/Brain/Head W/WO Contrast IMPRESSION: No acute intracranial findings. Negative for hemorrhage, hematoma, mass density or demarcated infarct zone. Mild bilateral vertebral calcifications without stenosis. Both vertebral arteries are normal in size within normal basilar artery. Otherwise normal arterial and venous structures. Negative for evidence of aneurysm, malformation or enhancing lesion. Tiny insignificant osteoma of the anterior right maxillary sinus. Otherwise the paranasal sinuses are clear. Few mastoid air cells are opacified at the tips of the bilateral mastoid processes without opacification of the mastoid antrum or middle ear. Normal skull. Electronically Signed: Leena Pritchard MD at 22:25 EDT , Service support ,
== END ==
PROVIDERS: Family Provider Family Medicine; PCP Family Medicine; Referring Provider Family Medicine; Visit Provider Family Medicine
DX: R42 Dizziness and giddiness (principal)
CPT/HCPCS: 70470; Q9967

== ENCOUNTER 2018-12-18 10:00 | Outpatient (RCR) | payer MEDICARE, BC, SELFPAY ==
--- NOTE | 2018-11-15 13:39 | HP.PTEVAL_ITS ---
Patient's Visit Information MARTA MACHUCA is a 72 year old F referred to Physical Therapy by Ricardo Reynolds DO with a diagnosis of Dizziness. Date of Evaluation: 11/15/18 Physical Therapist: FAISLA Sher - Visit Plan Frequency: 2x /Week Duration: 6 Weeks Plan: 2X/ week for VOR progression, balance with vestibular inputs, functional activities with HEP - Subjective Findings: Couple of weeks ago she had a high BP problems and was put on BP meds and it did help. SHe has been getting dizzy spells but nothing horrible but was watching TV last week and she felt like her whole head was moving around and around and got sick to her stomach and did not take her BP. SHe laid body down and it was good 10 min and she tried to lift her head and she could not do it. SHe started sweating and shaking. The dizziness was room moving and then she felt that her whole head was coming off. Yesterday there was 3X that she thought she was going to have some but then it went away. SHe has had double vision spells in the past as well. Pt had a catscan a week ago today. Current symptoms: tired, feels like it could happen again (trying not to move head fast in anyway), her head feels thick, she has head tremors and had to hold her head. If she lays down on her L side at night she will get a little dizziness ( most of the time) that is quick, sometimes if she lyingon her back she will feel it. She will feel it if she tries to pick something up off the floor. reports that she has been holding onto chair rails and she did not realize it. She feels that her balance is off. SHe fell 3-4 months ago and had not idea that she was going to do it. Can read for about 1/2 hour and then she cant read anymore because things get blurry - Objective -Hallpike B for R and L dizziness/nystagmus. smooth pursuit horizontal.... nausea but not dizzy. smooth pursuit vertical.... no dizziness and no nausea. VOR X 1----Head is moving, eyes focused on stationary object ( pt got nausea and vomit in her mouth and swallowed it). Saccades----Eyes move from one object to another speedily without head moving ( no dizziness and no nausea). VOR Cx---Head is moving, eyes focused on object moving in same direction as head ( room spinning dizzy). Gait with horizontal and vertical head turns ( made pt dizzy and unsteady both directions). CATSIB 93. FGA 9 - Balance Scores Functional Gait Assessment Score: 9 % Disability: 70.0000 CATSIB Score (Max score 120 seconds): 93 - Goals Goal 1:: I HEP Goal Time Frame: 4-6 Weeks Goal 2:: Increase CATSIB to 120/120 to improve overall balance Goal Time Frame: 4-6 Weeks Goal 3:: Be able to complete VOR X 1 in standing/ walking without having any dizziness or nausea Goal Time Frame: 4-6 Weeks Goal 4:: Be able to walk with head turns horizontal without LOB or hesitency Goal Time Frame: 4-6 Weeks - Rehabilitation Potential Rehabilitation Potential: Good - Anticipated Interventions Patient/Client Instruction: Educate patient on: Condition, Plan of Care For the Purpose of:: To improve muscle performance and motor function, To improve ability to perform ADL's, To increase tolerance to activity/condition/position, To improve performance and independence with ADL's, To improve gait and locomotor functions, To improve balance, To improve safety with gait Therapeutic Exercise to Include: Strength training, Balance training, Gait and locomotor training, Neuromotor development For the Purpose of:: To improve muscle performance and motor function, To increase tolerance to activity/condition/position, To improve performance and independence with ADL's, To improve gait and locomotor functions, To improve balance, To improve safety with gait Functional Training to Include: Gait training For the Purpose of:: To improve gait and locomotor functions Thank you for the opportunity to evaluate your patient. For Medicare and Medicare HMO plans, please review the plan of care and approve it. It will need to be FAXED BACK to us at [phone] for Medicare purposes. For Medicare only, by signing this I certify the plan of care. Please let me know if there are questions or concerns regarding this plan of care. Physician Signature: _Date:
--- NOTE | 2018-12-18 10:33 | HP.PTDCSUM ---
HP - PT D/C Summary It has been my pleasure to treat MARTA MACHUCA under orders from Ricardo Reynolds DO, for the diagnosis of Dizziness for a total of 9 visit(s). Discharge Date: 12/18/18 Please see the following information for a summary of their discharge status. - Subjective Subjective: Pt reports that she is doing her VOR exercises and working on getting her knee to bend via stairs and standing hip marching for ROM and balance. She has had no dizziness and even bent over for a long time to work with the dog and was able to stand back up without dizziness. - Overall Improvement % Improvement: 90 - Objective Objective/Function: see above - Goals Goal 1:: I HEP Goal Progress: Goal Met Goal 2:: Increase CATSIB to 120/120 to improve overall balance Goal Progress: Goal Met Goal 3:: Be able to complete VOR X 1 in standing/ walking without having any dizziness or nausea Goal Progress: Goal Met Goal 4:: Be able to walk with head turns horizontal without LOB or hesitency Goal Progress: Goal Met - Plan Plan: DC PT to HEP - D/C Information Discharge Comments: DC PT to HEP If there are questions or concerns regarding this patient's physical therapy, please feel free to call me at [phone]. Thank you for the referral of this patient. Sincerely, Debi Simon, MPT
== END 2018-12-18 19:00 | disposition home or self-care (01) ==
LOC: PT 10:00
PROVIDERS: Family Provider Family Medicine; PCP Family Medicine; Referring Provider Family Medicine; Visit Provider Family Medicine
DX: R42 Dizziness and giddiness (principal)
CPT/HCPCS: 97110; 97162; 97530

== ENCOUNTER → 2019-04-10 11:05 | Outpatient (CLI) | payer MEDICARE, BC, SELFPAY ==
[2019-04-10 12:22] LABS: Absolute Lymphocyte Count 1.37 X10^3/uL (0.83-4.51); Basophil# 0.04 X10^3/uL; Basophil% 0.5 % (0-1); Eosinophils% 1.2 % (0-5); Hematocrit 45.3 % (37-47); Hemoglobin 14.5 g/dL (12.0-15.0); Lymphocyte # 1.37 X10^3/ul (4.0); Mean Corpuscular Hgb 29.1 pg (27.0-32.0); Monocyte# 0.52 X10^3/uL; Monocyte% 6.5 % (0-10); NRBC Flagged by Analyzer 0 % (0-5); Neutrophil # 5.99 X10^3/uL (2.7-7.7); Neutrophil % 74.4 % (47-70); Platelet Count 231 K/mm3 (150-450); RBC Distribution Width CV 12.6 % (11.6-14.6); Red Blood Count 4.98 M/mm3 (4.2-5.4); White Blood Count 8.1 K/mm3 (4.4-11.0)
[2019-04-10 13:01] LABS: ALB/GLOB Ratio 1.2 RATIO (0.9-2.4); AST(SGOT) 24 U/L (15-37); Alanine Aminotransfer ALT/SGPT 26 U/L (13-56); Alkaline Phosphatase 64 U/L (45-117); Anion Gap 5 (5-15); BUN 22 mg/dL (7-18); Calcium,Total 9.4 mg/dL (8.5-10.1); Chloride 108 mmol/L (98-107); Creatinine, Serum 1.05 mg/dL (0.55-1.02); EST Glomerular Filtration Rate 54 mL/min (>60); Est Glom Filt Rate - Afr Amer 66 mL/min (>60); Globulin 3.3 g/dL (2.2-4.2); Glucose 88 mg/dL (74-106); Potassium 4.2 mmol/L (3.5-5.1); Protein, Total 7.3 g/dL (6.4-8.2); Sodium Level 142 mmol/L (136-145)
== END ==
PROVIDERS: Family Provider Family Medicine; PCP Family Medicine; Referring Provider Internal Medicine Rheumatology; Visit Provider Internal Medicine Rheumatology
DX: M06.4 Inflammatory polyarthropathy (principal); M47.897 Other spondylosis, lumbosacral region; M21.40 Flat foot [pes planus] (acquired), unspecified foot; K21.9 Gastro-esophageal reflux disease without esophagitis; R51 Headache; J45.909 Unspecified asthma, uncomplicated; Z90.5 Acquired absence of kidney
CPT/HCPCS: 36415; 80053; 85025

== ENCOUNTER → 2019-06-17 | Outpatient (CLI) | payer MEDICARE, BC, SELFPAY ==
[2019-06-17 12:26] LABS: Absolute Lymphocyte Count 1.09 X10^3/uL (0.83-4.51); Absolute Neutrophil Count 3.4 X10^3/uL (2.0-7.7); Basophil# 0.04 X10^3/uL; Basophil% 0.8 % (0-1); Eosinophil# 0.05 X10^3/uL; Hematocrit 45.9 % (37-47); Hemoglobin 14.6 g/dL (12.0-15.0); Lymphocyte # 1.09 X10^3/ul (4.0); Lymphocyte % 20.9 % (19-41); Mean Corp Hgb Conc 31.8 g/dL (32-36); Mean Corpuscular Hgb 28.3 pg (27.0-32.0); Mean Platelet Vol. 12.3 fl (6.2-12.0); Monocyte# 0.59 X10^3/uL; Monocyte% 11.3 % (0-10); NRBC Flagged by Analyzer 0 % (0-5); Neutrophil # 3.43 X10^3/uL (2.7-7.7); Neutrophil % 65.8 % (47-70); Platelet Count 197 K/mm3 (150-450); RBC Distribution Width CV 13.5 % (11.6-14.6); RBC Distribution Width SD 44.2 fl (35.1-43.9); Red Blood Count 5.16 M/mm3 (4.2-5.4); White Blood Count 5.2 K/mm3 (4.4-11.0)
[2019-06-17 12:44] LABS: AST(SGOT) 35 U/L (15-37); Alanine Aminotransfer ALT/SGPT 51 U/L (13-56); Albumin, Serum 3.6 g/dL (3.2-5.0); Alkaline Phosphatase 58 U/L (45-117); Anion Gap 4 (5-15); BUN 21 mg/dL (7-18); BUN/Creat Ratio 20.8 RATIO (10-20); Calcium,Total 9.6 mg/dL (8.5-10.1); Chloride 110 mmol/L (98-107); Creatinine, Serum 1.01 mg/dL (0.55-1.02); EST Glomerular Filtration Rate 57 mL/min (>60); Est Glom Filt Rate - Afr Amer 69 mL/min (>60); Globulin 3.7 g/dL (2.2-4.2); Glucose 96 mg/dL (74-106); Potassium 4.2 mmol/L (3.5-5.1); Protein, Total 7.3 g/dL (6.4-8.2); Sodium Level 142 mmol/L (136-145)
== END | disposition home or self-care (01) ==
LOC: MTLAB 10:11
PROVIDERS: PCP Family Medicine; Referring Provider Internal Medicine Rheumatology; Visit Provider Internal Medicine Rheumatology
DX: M06.4 Inflammatory polyarthropathy (principal); M47.897 Other spondylosis, lumbosacral region; M21.40 Flat foot [pes planus] (acquired), unspecified foot; K21.9 Gastro-esophageal reflux disease without esophagitis; R51 Headache; J45.909 Unspecified asthma, uncomplicated; Z90.5 Acquired absence of kidney
CPT/HCPCS: 36415; 80053; 85025

== ENCOUNTER 2019-06-19 09:00 | Outpatient (RCR) | payer MEDICARE, BC, SELFPAY ==
--- NOTE | 2019-05-28 09:30 | HP.PTEVAL_ITS ---
Patient's Visit Information MARTA MACHUCA is a 73 year old F referred to Physical Therapy by Mike Resendez MD with a diagnosis of degernative lumbar disc, lumbosacral radiculapothy, and spinal stenosis. Date of Evaluation: 05/27/19 Physical Therapist: Yinka Lerma DPT - Visit Plan Frequency: 2-3x /Week Duration: 4-6 Weeks Plan: Start with neutral spine core strengthening, BLE strengthening and static balance activities. AVOID increased Lumbar pain. Add in functional strengtheing and walking endurance and dynamic balance and tolerated. PRogress HEP as able. - Subjective Findings: Pt. is here today for her initial evaluation with diagnosis fo degernative lumbar disc, lumbosacral radiculapothy, and spinal stenosis. Pt. reports she has been having increased low back pain for years, but has been getting worse until she had recent shot in her back. Pt. now is having very minimal back and leg pain, but reports having significant LE weakness effected her gait and ADLs. Pt. reports having 1/10 pain in lumbar spine this date. Pt. denies N/T and no sudden LE weakness, but a more gradual onset with standing and walking. No pain with sleeping, but ADLs can be difficulty, especially with laundry, dishes and vaccum/dusting. Pt. reports difficutly with walking in malls (over longer distances without something to hold onto). She is also conserned about her balance. Pt. is hopeful to increase BLE strength in order to walk longer distances with decreased limitations. - Pain Lumbar spine Pain Intensity (Out of 10): 1 Pain Intensity Range: 0, 3 - Objective POSTURE: Pt. has decent posture in stance, slight FH posture with rounded shoulders. Sligh pelvic flexion. PALPATION: Pt. has not pain with palpation of lumbar spine. No pain with palpation of B Les. NEURO: normal throughout BLEs, normal sensation, normal DTR. ROM: Pt. has good lumbar ROM, mild pain and stiffness with rotation and SB bilat. MMT: Pt. has generally 4/5 BLE strength throughout knees and hips; ankle 5/5 throughout B. Core strength- poor. GAIT: Pt. ambulates with methodical pattern with increased fwrd flexion and occassiona lly using barger to stabilize. STAIRS: heavy use of BHR with step to pattern. FGA: with increased difficulty with eyes closed and narrow DEMETRIS. - Goals Goal 1:: LTG: Pt. to be I with HEP. Goal Time Frame: 4-6 Weeks Goal 2:: STG: Pt. to complete 6 MWT with distance of 1200 feet. Goal Time Frame: 2-4 Weeks Goal 3:: LTG: Pt.to have increased core and BLE sterngth increased by 1/2 grade of all effected musculature. Goal Time Frame: 4-6 Weeks Goal 4:: LTG: Pt. to resume walking in malls and larger department stores without BLE weakness or limitations. Goal Time Frame: 4-6 Weeks Goal 5:: LTG: PT. to have increased FGA to 23/30 indicating improved balance and reduced risk for future falls. Goal Time Frame: 4-6 Weeks - Rehabilitation Potential Physical Therapy Diagnosis: PT. has signs and symptoms consistent with degernative lumbar disc, lumbosacral radiculapothy, and spinal stenosis. Pt. has general weakness in core and BLEs that is effected her BLEs with gait and functional ADLs/chores. Pt. also has marked balance deficits which shoulder be addressed for safety as well. Rehabilitation Potential: Good - Anticipated Interventions Patient/Client Instruction: Educate patient on: Condition, Plan of Care, Risk Factors, Benefits of Fitness Program For the Purpose of:: To foster healthy habits, To improve decision making, To facilitate caregiver knowledge, To improve self management, To prevent re- injury, To improve ability to perform tasks related to life management, To improve tolerance to ADL's Therapeutic Exercise to Include: Strength training, Power training, Endurance training, Balance training, Postural training, Flexibilty training, Gait and locomotor training, Neuromotor development, Dynamic Lumbar Stabilization For the Purpose of:: To decrease pain, To decrease swelling/inflammation, To increase ROM, To improve nutrient delivery to tissue, To improve muscle performance and motor function, To improve gait and locomotor functions, To improve health of tissue, To decrease soft tissue restriction, To increase flexibility/ROM, To improve balance, To improve safety with gait Thank you for the opportunity to evaluate your patient. For Medicare and Medicare HMO plans, please review the plan of care and approve it. It will need to be FAXED BACK to us at [phone] for Medicare purposes. For Medicare only, by signing this I certify the plan of care. Please let me know if there are questions or concerns regarding this plan of care. Physician Signature: Date:
--- NOTE | 2019-11-17 16:07 | HP.PTDCNRP_ITS ---
MARTA MACHUCA was seen in my office for initial evaluation on 05/27/19. The following Plan of Care was established for this patient: Initial Frequency: 2-3x /Week Initial Duration: 4-6 Weeks Patient/Client Instruction: Educate patient on: Condition, Plan of Care, Risk Factors, Benefits of Fitness Program For the Purpose of:: To foster healthy habits, To improve decision making, To facilitate caregiver knowledge, To improve self management, To prevent re- injury, To improve ability to perform tasks related to life management, To improve tolerance to ADL's Therapeutic Exercise to Include: Strength training, Power training, Endurance training, Balance training, Postural training, Flexibilty training, Gait and locomotor training, Neuromotor development, Dynamic Lumbar Stabilization For the Purpose of:: To decrease pain, To decrease swelling/inflammation, To increase ROM, To improve nutrient delivery to tissue, To improve muscle performance and motor function, To improve gait and locomotor functions, To improve health of tissue, To decrease soft tissue restriction, To increase flexibility/ROM, To improve balance, To improve safety with gait This patient was last seen in our office 06/19/19. Pertinent comments regarding their Physical therapy will appear below: Pt. has not been seen in several months and will be DC from PT at this point in time. At this point I will be discontinuing this patient from physical therapy. I would be happy to see this patient again in the future if found appropriate by the physician. Thank you! Yinka Lerma DPT
== END 2019-06-19 19:00 | disposition home or self-care (01) ==
LOC: PT 09:00
PROVIDERS: PCP Family Medicine; Referring Provider Anesthesiology Pain Medicine; Visit Provider Anesthesiology Pain Medicine
DX: M51.17 Intervertebral disc disorders with radiculopathy, lumbosacral region (principal); M48.07 Spinal stenosis, lumbosacral region
CPT/HCPCS: 97110; 97161; 97530

== ENCOUNTER → 2019-09-10 | Outpatient (CLI) | payer MEDICARE, BC, SELFPAY ==
[2019-09-10 10:38] LABS: Absolute Neutrophil Count 3.8 X10^3/uL (2.0-7.7); Basophil# 0.03 X10^3/uL; Basophil% 0.6 % (0-1); Eosinophil# 0.07 X10^3/uL; Eosinophils% 1.3 % (0-5); Hematocrit 44.6 % (37-47); Hemoglobin 14.4 g/dL (12.0-15.0); Lymphocyte % 20.3 % (19-41); Mean Corp Hgb Conc 32.3 g/dL (32-36); Mean Corpuscular Hgb 29.6 pg (27.0-32.0); Mean Corpuscular Volume 91.8 fL (81-99); Mean Platelet Vol. 12.5 fl (6.2-12.0); Monocyte# 0.45 X10^3/uL; Monocyte% 8.3 % (0-10); NRBC Flagged by Analyzer 0 % (0-5); Neutrophil # 3.76 X10^3/uL (2.7-7.7); Neutrophil % 69.1 % (47-70); Platelet Count 191 K/mm3 (150-450); RBC Distribution Width CV 13.3 % (11.6-14.6); RBC Distribution Width SD 44.2 fl (35.1-43.9); Red Blood Count 4.86 M/mm3 (4.2-5.4); White Blood Count 5.4 K/mm3 (4.4-11.0)
[2019-09-10 11:00] LABS: AST(SGOT) 28 U/L (15-37); Alanine Aminotransfer ALT/SGPT 31 U/L (13-56); Albumin, Serum 3.6 g/dL (3.2-5.0); Alkaline Phosphatase 63 U/L (45-117); Anion Gap 7 (5-15); BUN 13 mg/dL (7-18); BUN/Creat Ratio 13.6 RATIO (10-20); Calcium,Total 8.9 mg/dL (8.5-10.1); Chloride 109 mmol/L (98-107); Creatinine, Serum 0.96 mg/dL (0.55-1.02); EST Glomerular Filtration Rate 61 mL/min (>60); Est Glom Filt Rate - Afr Amer 73 mL/min (>60); Globulin 3.5 g/dL (2.2-4.2); Glucose 115 mg/dL (74-106); Potassium 3.8 mmol/L (3.5-5.1); Protein, Total 7.1 g/dL (6.4-8.2); Sodium Level 143 mmol/L (136-145)
== END | disposition home or self-care (01) ==
LOC: MTLAB 09:21
PROVIDERS: PCP Family Medicine; Referring Provider Internal Medicine Rheumatology; Visit Provider Internal Medicine Rheumatology
DX: M06.4 Inflammatory polyarthropathy (principal); M47.897 Other spondylosis, lumbosacral region; M21.40 Flat foot [pes planus] (acquired), unspecified foot; K21.9 Gastro-esophageal reflux disease without esophagitis; R51 Headache; J45.909 Unspecified asthma, uncomplicated; Z90.5 Acquired absence of kidney
CPT/HCPCS: 36415; 80053; 85025

== ENCOUNTER → 2019-09-15 10:03 | Outpatient (CLI) | payer MEDICARE, BC, SELFPAY ==
--- NOTE | 2019-09-15 10:07 | RAD_ITS ---
STUDY: X-RAY - PELVIS AND RIGHT HIP REASON FOR EXAM: Inflammatory polyarthropathy. TECHNIQUE: 2 views of the pelvis and hip. COMPARISON: Radiographs 07/09/2018. FINDINGS: There is no interval change of the soft tissue calcification overlying the right obturator ring. Normal bilateral iliac wings, sacroiliac joints and visualized sacrum. Normal bilateral superior and inferior pubic rami. Normal pubic symphysis. There is mild enthesopathy of the right ischial tuberosity as on the prior study. Normal visualized femoral head. Normal acetabulum. Normal hip joint. RAD/HIP, UNI W/ Pelvis 2-3 Views IMPRESSION: No interval change without demonstrated interval development of osseous erosions. Electronically Signed: Wilian Chavez MD at 11:17 EDT Tel , Service support ,
== END ==
PROVIDERS: PCP Family Medicine; Referring Provider Internal Medicine Rheumatology; Visit Provider Internal Medicine Rheumatology
DX: M06.4 Inflammatory polyarthropathy (principal); M47.897 Other spondylosis, lumbosacral region; M21.40 Flat foot [pes planus] (acquired), unspecified foot; K21.9 Gastro-esophageal reflux disease without esophagitis; R51 Headache; J45.909 Unspecified asthma, uncomplicated; Z90.5 Acquired absence of kidney
CPT/HCPCS: 73502

== ENCOUNTER → 2019-12-03 11:59 | Outpatient (CLI) | payer MEDICARE, BC, SELFPAY ==
[2019-12-03 12:31] LABS: Absolute Lymphocyte Count 1.43 X10^3/uL (0.83-4.51); Absolute Neutrophil Count 3.9 X10^3/uL (2.0-7.7); Basophil# 0.04 X10^3/uL; Basophil% 0.6 % (0-1); Eosinophil# 0.15 X10^3/uL; Eosinophils% 2.4 % (0-5); Hematocrit 45.6 % (37-47); Hemoglobin 14.8 g/dL (12.0-15.0); Lymphocyte # 1.43 X10^3/ul (4.0); Lymphocyte % 23.1 % (19-41); Mean Corp Hgb Conc 32.5 g/dL (32-36); Mean Corpuscular Hgb 29.3 pg (27.0-32.0); Mean Corpuscular Volume 90.3 fL (81-99); Mean Platelet Vol. 11.5 fl (6.2-12.0); Monocyte# 0.64 X10^3/uL; Monocyte% 10.3 % (0-10); NRBC Flagged by Analyzer 0 % (0-5); Neutrophil # 3.92 X10^3/uL (2.7-7.7); Neutrophil % 63.3 % (47-70); Platelet Count 228 K/mm3 (150-450); RBC Distribution Width SD 42.8 fl (35.1-43.9); Red Blood Count 5.05 M/mm3 (4.2-5.4); White Blood Count 6.2 K/mm3 (4.4-11.0)
[2019-12-03 13:12] LABS: ALB/GLOB Ratio 1.1 RATIO (0.9-2.4); AST(SGOT) 24 U/L (15-37); Alanine Aminotransfer ALT/SGPT 28 U/L (13-56); Albumin, Serum 3.7 g/dL (3.2-5.0); Alkaline Phosphatase 71 U/L (45-117); Anion Gap 8 (5-15); BUN 15 mg/dL (7-18); Calcium,Total 8.8 mg/dL (8.5-10.1); Chloride 110 mmol/L (98-107); Creatinine, Serum 1.07 mg/dL (0.55-1.02); EST Glomerular Filtration Rate 53 mL/min (>60); Est Glom Filt Rate - Afr Amer 64 mL/min (>60); Globulin 3.5 g/dL (2.2-4.2); Glucose 108 mg/dL (74-106); Potassium 3.8 mmol/L (3.5-5.1); Protein, Total 7.2 g/dL (6.4-8.2); Sodium Level 140 mmol/L (136-145)
== END ==
PROVIDERS: PCP Family Medicine; Referring Provider Internal Medicine Rheumatology; Visit Provider Internal Medicine Rheumatology
DX: M06.4 Inflammatory polyarthropathy (principal); J45.909 Unspecified asthma, uncomplicated; R51 Headache; Z90.5 Acquired absence of kidney; K21.9 Gastro-esophageal reflux disease without esophagitis; M21.40 Flat foot [pes planus] (acquired), unspecified foot; M47.897 Other spondylosis, lumbosacral region
CPT/HCPCS: 36415; 80053; 85025

== ENCOUNTER → 2020-02-24 | Outpatient (CLI) | payer MEDICARE, BC, SELFPAY ==
[2020-02-24 12:32] LABS: Absolute Lymphocyte Count 1.14 X10^3/uL (0.83-4.51); Absolute Neutrophil Count 3.4 X10^3/uL (2.0-7.7); Basophil# 0.05 X10^3/uL; Basophil% 0.9 % (0-1); Eosinophil# 0.11 X10^3/uL; Eosinophils% 2.1 % (0-5); Hematocrit 45.4 % (37-47); Hemoglobin 14.5 g/dL (12.0-15.0); Lymphocyte # 1.14 X10^3/ul (4.0); Lymphocyte % 21.4 % (19-41); Mean Corp Hgb Conc 31.9 g/dL (32-36); Mean Corpuscular Volume 90.8 fL (81-99); Mean Platelet Vol. 12.6 fl (6.2-12.0); Monocyte# 0.58 X10^3/uL; Monocyte% 10.9 % (0-10); NRBC Flagged by Analyzer 0 % (0-5); Neutrophil # 3.44 X10^3/uL (2.7-7.7); Neutrophil % 64.5 % (47-70); Platelet Count 211 K/mm3 (150-450); White Blood Count 5.3 K/mm3 (4.4-11.0)
[2020-02-24 13:05] LABS: ALB/GLOB Ratio 1.2 RATIO (0.9-2.4); AST(SGOT) 25 U/L (15-37); Alanine Aminotransfer ALT/SGPT 28 U/L (13-56); Albumin, Serum 3.9 g/dL (3.2-5.0); Alkaline Phosphatase 70 U/L (45-117); Anion Gap 7 (5-15); BUN 17 mg/dL (7-18); BUN/Creat Ratio 18.3 RATIO (10-20); Calcium,Total 9.5 mg/dL (8.5-10.1); Chloride 110 mmol/L (98-107); Creatinine, Serum 0.93 mg/dL (0.55-1.02); EST Glomerular Filtration Rate 63 mL/min (>60); Est Glom Filt Rate - Afr Amer 76 mL/min (>60); Globulin 3.3 g/dL (2.2-4.2); Glucose 88 mg/dL (74-106); Potassium 4.2 mmol/L (3.5-5.1); Protein, Total 7.2 g/dL (6.4-8.2); Sodium Level 142 mmol/L (136-145)
== END | disposition home or self-care (01) ==
LOC: MTLAB 10:27
PROVIDERS: PCP Family Medicine; Referring Provider Internal Medicine Rheumatology; Visit Provider Internal Medicine Rheumatology
DX: M06.4 Inflammatory polyarthropathy (principal); M47.897 Other spondylosis, lumbosacral region; M21.40 Flat foot [pes planus] (acquired), unspecified foot; K21.9 Gastro-esophageal reflux disease without esophagitis; R51.9 Headache, unspecified; J45.909 Unspecified asthma, uncomplicated; Z90.5 Acquired absence of kidney; Z95.0 Presence of cardiac pacemaker
CPT/HCPCS: 36415; 80053; 85025

== ENCOUNTER → 2020-04-07 11:39 | Outpatient (CLI) | payer MEDICARE, BC, SELFPAY ==
--- NOTE | 2020-04-07 11:54 | RAD_ITS ---
STUDY: X-RAY - PELVIS REASON FOR EXAM: Female, 74 years old. bilateral hip pain, inflammatory polyarthropathy TECHNIQUE: One view of the pelvis was obtained. COMPARISON: 09/15/2019 FINDINGS: There is a non-specific bowel gas pattern. Normal visualized soft tissue structures. Calcification projecting over the right obturator ring is stable. Normal bilateral iliac wings, sacroiliac joints and visualized sacrum. Normal visualized bilateral superior and inferior pubic rami. Calcification adjacent to the right inferior obturator ring may be sequela of prior hamstring injury or enthesopathy, stable. Normal pubic symphysis. Normal ischial tuberosities. Normal visualized right femoral head. Normal right acetabulum. Normal right hip joint. Normal visualized left femoral head. Normal left acetabulum. Normal left hip joint. RAD/Pelvis 1 or 2 Views IMPRESSION: Stable x-ray examination of the pelvis. Electronically Signed: Ric Valenzuela MD ([place]) at 13:04 EST , Service support ,
== END ==
PROVIDERS: PCP Family Medicine; Referring Provider Internal Medicine Rheumatology; Visit Provider Internal Medicine Rheumatology
DX: M06.4 Inflammatory polyarthropathy (principal); M47.897 Other spondylosis, lumbosacral region; M21.40 Flat foot [pes planus] (acquired), unspecified foot; K21.9 Gastro-esophageal reflux disease without esophagitis; Z90.5 Acquired absence of kidney; R51.9 Headache, unspecified; J45.909 Unspecified asthma, uncomplicated; Z79.899 Other long term (current) drug therapy
CPT/HCPCS: 72170

== ENCOUNTER → 2020-05-13 10:54 | Outpatient (CLI) | payer MEDICARE, BC, SELFPAY ==
[2020-05-13 11:51] LABS: Absolute Lymphocyte Count 1.17 X10^3/uL (0.83-4.51); Absolute Neutrophil Count 5.5 X10^3/uL (2.0-7.7); Basophil# 0.04 X10^3/uL; Basophil% 0.5 % (0-1); Eosinophil# 0.05 X10^3/uL; Eosinophils% 0.7 % (0-5); Hematocrit 48.2 % (37-47); Hemoglobin 15.3 g/dL (12.0-15.0); Lymphocyte # 1.17 X10^3/ul (4.0); Lymphocyte % 15.6 % (19-41); Mean Corp Hgb Conc 31.7 g/dL (32-36); Mean Corpuscular Hgb 28.6 pg (27.0-32.0); Mean Corpuscular Volume 90.1 fL (81-99); Mean Platelet Vol. 11.3 fl (6.2-12.0); Monocyte# 0.69 X10^3/uL; Monocyte% 9.2 % (0-10); NRBC Flagged by Analyzer 0 % (0-5); Neutrophil # 5.54 X10^3/uL (2.7-7.7); Neutrophil % 73.7 % (47-70); Platelet Count 227 K/mm3 (150-450); RBC Distribution Width CV 13.5 % (11.6-14.6); RBC Distribution Width SD 45.1 fl (35.1-43.9); Red Blood Count 5.35 M/mm3 (4.2-5.4); White Blood Count 7.5 K/mm3 (4.4-11.0)
[2020-05-13 12:45] LABS: AST(SGOT) 18 U/L (15-37); Alanine Aminotransfer ALT/SGPT 26 U/L (13-56); Albumin, Serum 3.6 g/dL (3.2-5.0); Alkaline Phosphatase 67 U/L (45-117); Anion Gap 8 (5-15); BUN 17 mg/dL (7-18); BUN/Creat Ratio 17.9 RATIO (10-20); Calcium,Total 9.4 mg/dL (8.5-10.1); Chloride 108 mmol/L (98-107); Creatinine, Serum 0.95 mg/dL (0.55-1.02); EST Glomerular Filtration Rate 61 mL/min (>60); Est Glom Filt Rate - Afr Amer 74 mL/min (>60); Globulin 3.7 g/dL (2.2-4.2); Glucose 105 mg/dL (74-106); Potassium 3.9 mmol/L (3.5-5.1); Protein, Total 7.3 g/dL (6.4-8.2); Sodium Level 140 mmol/L (136-145)
== END ==
LOC: LAB 10:57 → MTLAB 10:57
PROVIDERS: PCP Family Medicine; Referring Provider Internal Medicine Rheumatology; Visit Provider Internal Medicine Rheumatology
DX: M06.4 Inflammatory polyarthropathy (principal); M47.897 Other spondylosis, lumbosacral region; M21.40 Flat foot [pes planus] (acquired), unspecified foot; K21.9 Gastro-esophageal reflux disease without esophagitis; R51.9 Headache, unspecified; J45.909 Unspecified asthma, uncomplicated; Z90.5 Acquired absence of kidney
CPT/HCPCS: 36415; 80053; 85025

== ENCOUNTER 2020-06-04 09:15 | Emergency (ER) | payer MEDICARE, BC, SELFPAY ==
[2020-06-04 09:16] VITALS: BP 200/104; PULSE 87; RESP 18; TEMP 35.6; O2SAT 96; BMI 29.2
--- NOTE | 2020-06-04 09:48 | ED.VIS.BACK ---
History of Present Illness Chief Complaint: Back Informant: Patient Onset: Days - 2-3 Context: Gradual Onset Timing: Continuous, Waxes and wanes Quality: Aching - and pinching Location: Lumbar, Left Leg Current Severity: Severe Maximum Severity: Severe Worsened by: improves with: Movement, Ambulation Relieved by: Nothing. Not Relieved By: Medications - tried tylenol and took a prednisone pill yesterday Associated Symptoms: - - Radiation down left lower extremity to foot. No numbness, tingling, saddle anesthesia, urinary retention or incontinence, or bowel retention or incontinence. Cannot tell if her left lower extremity is weak or limited by pain but she has difficulty ambulating although she is able. 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 Rubin with pain management but was unable to get in today since this pain became worse over the last 2 or 3 days. It started spontaneously, she does not remember what she was doing because it started mild and progressively got worse. She denies any injury. Low back, near her SI joint on the left, no buttock pain but pain that radiates down her left leg to her foot without numbness. She states she took a prednisone yesterday that she was given for flareups and states she thought she was having 1 so she took 1 yesterday. With further questioning, it is clear that she has never had this before, but in the beginning she thought maybe it was related to the arthritis that she had so she thought she would try prednisone. She has had no effect from it that she can tell. Prior similar symptoms: No Past Medical History - Allergies and Home Meds Allergies/Adverse Reactions: Allergies codeine Allergy (Verified 06/04/20 09:16) Vomiting Primary Care Physician: Ricardo Reynolds DO [Primary Care Provider] - Smoking Status: Never smoker Review of Systems General: Denies: Chills, Fever, Sweats Eyes: Denies: Visual changes - bilaterally, Diplopia ENT: Denies: Rhinorrhea, Sore throat Cardiovascular: Denies: Chest pain, Palpitations Respiratory: Denies: Dyspnea, Cough, Dyspnea on exertion Gastrointestinal: Denies: Abdominal pain, Nausea, Vomiting, Diarrhea, Melena, Hematochezia Genitourinary: Reports: - - No bowel or bladder dysfunction. Denies: Dysuria, Hematuria, Frequency Musculoskeletal: Reports: Back pain, Extremity Pain. Denies: Neck pain, Swelling Skin: Denies: Rash, Wounds Neurological: Denies: Headache, Weakness, Numbness Physical Exam Vital Signs/Narrative: Vital Signs Temp Pulse Resp BP Pulse Ox 06/04/20 09:16 96.0 F L 87 18 200/104 H 96 Inital Vital Signs reviewed: Yes General: Well nourished, Well developed, - - In mild acute painful distress Head: Normocephalic, Atraumatic Eyes: Perrl, EOMI ENT: Moist mucous membranes, No rhinorrhea Neck: Supple, Nontender Cardiovascular: Regular rate, Regular rhythm, No murmurs Respiratory: No distress, CTA bilaterally, Chest nontender Abdomen: Soft, Nontender, Nondistended, Normal bowel sounds. Negative for: Pulsatile mass Back: Normal Inspection - No rash or signs of injury, Nontender - Including left SI joint where pain is focused, and midline, Negative SLR - Right, Positive SLR - Left Extremeties: No edema, Tenderness - Mild superficial tenderness medial dorsal left foot, normal inspection, Strong Pulses, Symmetric Skin: Normal color, No rash, No Trauma Neuro: Alert, Oriented, Normal Sensation, Normal DTR - Symmetric 1+ ankle and 2+ patellar reflexes. Downgoing toes, no clonus bilaterally., - Psychological: Normal affect, Normal Mood Diagnostic/Tx/Re-eval Clinical Impression(s) from Imaging Studies Lumbar Spine X-Ray 06/04/20 10:19 IMPRESSION: Degenerative changes of the spine, as detailed above. Minimal anterior listhesis of L5 on S1 due to facet joint osteoarthritis. Stable examination. Electronically Signed: Sheldon Preciado MD at 10:31 EST , Service support , - Medical Decision Making Patient was given morphine and Zofran, and it did not phase her severe pain. Therefore she was given Dilaudid 1 mg, and she was observed for a while. She was a little lethargic after that so we decided not to simms things and see how she did after she woke up a little more, after which she was able to get up with little assistance and walk back and forth to the bathroom with discomfort that was well controlled. Later the pain started coming back but she was in no distress while sitting in bed. As I discussed with her, she most likely has an L4-L5 radiculopathy due to a disc issue, she does not have any signs or symptoms of cauda equina or conus medullaris syndrome. I am reassured about her complaint of possible leg weakness as she walks back and forth without assistance. I had offered admission, at this point she is comfortable going home with a prescription for analgesics and following up with her pain management doctor with whom she has an appointment next week, and touching base with her PCP for possible referral to physical therapy. I will also start her on gabapentin in addition to the oxycodone to use as needed. ED Disposition - Plan for ED Patient: Disposition: Home or Assisted Living Diagnosis: Sciatica of left side, Lumbar radiculopathy, acute Instructions: ED Sciatica Prescriptions: Gabapentin 300 mg PO TID 30 Days #89 cap Transmission Status: Pending to [facility] Oxycodone HCl/Acetaminophen [Percocet 5/325] 1 tablet PO Q6H PRN PRN 3 Days #12 tablet PRN Reason: Pain Transmission Status: Received by [facility] Referrals: Ricardo Reynolds DO [Primary Care Provider] - 3-5 Days (And/or contact for possible physical therapy referral) Mike Resendez MD [STAFF PHYSICIAN] - Keep Alem appointment Julio Ochoa DO [STAFF PHYSICIAN] - (may call to make Spine appt)
[2020-06-04] MEDS: Ondansetron 4 MG/2 ML Vial IV ×2 (09:58→12:34)
[2020-06-04] MEDS: Morphine 4 MG/ML Syringe IV (09:58)
--- NOTE | 2020-06-04 10:19 | RAD_ITS ---
STUDY: X-RAY - LUMBAR SPINE REASON FOR EXAM: Female, 74 years old. Pain TECHNIQUE: 3 view(s) of the lumbar spine were obtained. COMPARISON: Comparison is made with prior study dated 10/23/2018. FINDINGS: Normal lumbar lordosis. There is no substantial scoliosis. Normal vertebral bodies and endplates. Mild degree of disc space narrowing at the L5-S1 level. Minimal anterior listhesis of L5 on S1. Facet joint osteoarthritis. The soft tissue structures are unremarkable. RAD/Lumbar Spine 2 or 3 Views IMPRESSION: Degenerative changes of the spine, as detailed above. Minimal anterior listhesis of L5 on S1 due to facet joint osteoarthritis. Stable examination. Electronically Signed: Sheldon Preciado MD at 10:31 EST , Service support ,
[2020-06-04] MEDS: HYDROmorphone 1 MG/ML Syringe IV (10:40)
[2020-06-04 11:52] VITALS: BP 147/66; PULSE 72; RESP 16; O2SAT 95
--- NOTE | 2020-06-04 13:26 | ED.RN ---
Patient tolerated james shyam and crackers but not the applesauce. She states she is satisfied with the crackers for now and declines to ambulate to the bathroom at this time, no further needs.
[2020-06-04 13:50] VITALS: BP 146/60; PULSE 68; RESP 16; O2SAT 98
[2020-06-04] MEDS: Gabapentin 300 MG Capsule PO (15:16)
[2020-06-04 15:25] VITALS: BP 144/84; PULSE 77; RESP 18; O2SAT 95
== END 2020-06-04 15:27 | disposition home or self-care (01) ==
PROVIDERS: Emergency Provider Emergency Medicine; PCP Family Medicine
DX: M54.16 Radiculopathy, lumbar region (principal)
CPT/HCPCS: 72100; 96374; 96375; 96376; 99284; A4216; J2405

== ENCOUNTER 2020-06-06 09:50 | Inpatient (IN) | payer MEDICARE, BC, SELFPAY ==
[2020-06-06 09:51] VITALS: BP 162/96; PULSE 114; RESP 16; TEMP 36.6; O2SAT 94; BMI 29.2
--- NOTE | 2020-06-06 10:51 | ED.VISSUMM ---
- ER Visit Summary Date of Service: 06/06/20 Chief Complaint: Back and left leg pain History of Present Illness: The patient is a 74 F who presents with low back and left leg pain that became worse again today. Patient was seen here 2 days ago. Patient had x-rays done at that time which showed degenerative changes. There is no fracture or spondylolisthesis at that time. Patient was given analgesics here in the emergency department. Patient was feeling better. Patient was discharged home with oral Percocet and gabapentin. Patient states her pain has gradually gotten worse over the past 2 days. Patient denies any new trauma or injury. Patient states the pain is worse with standing. Patient states the pain starts in her low back and radiates all the way down to her left foot. Patient admits to some paresthesias in her left great toe. Physical Examination: Vital signs are stable. Patient is afebrile. Patient is in no acute distress. Musculoskeletal exam reveals tenderness over the left lower lumbar paraspinal area and left gluteal area. There is no bony crepitance or step-off. Range of motion was slightly limited in all motions of the lumbar spine and left hip secondary to pain. Strength is 4/5 with extension of the big toe strength is otherwise 5/5 in the lower extremities. Deep tendon reflexes were 1+/4 bilaterally in the lower extremities. Sensation was diminished to light touch over the great toe, dorsum of the foot, and lateral aspect of the left lower leg. Test Results: CBC and comprehensive metabolic profile were obtained and were essentially within normal limits. D-dimer was obtained and was normal for her age. Emergency Department Course and Treatment: Patient was given a dose of Dilaudid here. Patient states she had an episode of burning in her left big toe that came on while she was here but has resolved. Patient does not feel comfortable going home. Case was discussed with the hospitalist. He will admit the patient to his service. Patient understood and was agreeable with the plan. All questions were answered. Disposition: Admit to hospital Impression: 1. Lumbar radiculopathy This note was generated with Reflektionation software. It may contain incorrect words, spelling, and punctuation that were not noted in review of the chart prior to signing ED Disposition - Plan for ED Patient: Disposition: Acute Care Hospital [facility] Diagnosis: Left lumbar radiculopathy Referrals: Ricardo Reynolds DO [Primary Care Provider] -
[2020-06-06] MEDS: Ondansetron 4 MG/2 ML Vial IV (11:29)
[2020-06-06] MEDS: dexAMETHasone 10 MG/ML Vial IV (11:29)
[2020-06-06 11:36] LABS: Absolute Lymphocyte Count 1.19 X10^3/uL (0.83-4.51); Absolute Neutrophil Count 6.6 X10^3/uL (2.0-7.7); Basophil# 0.07 X10^3/uL; Basophil% 0.8 % (0-1); Eosinophil# 0.05 X10^3/uL; Eosinophils% 0.6 % (0-5); Hematocrit 49.1 % (37-47); Hemoglobin 15.9 g/dL (12.0-15.0); Lymphocyte # 1.19 X10^3/ul (4.0); Lymphocyte % 13.5 % (19-41); Mean Corp Hgb Conc 32.4 g/dL (32-36); Mean Corpuscular Hgb 30.1 pg (27.0-32.0); Mean Platelet Vol. 11.3 fl (6.2-12.0); Monocyte# 0.92 X10^3/uL; Monocyte% 10.4 % (0-10); NRBC Flagged by Analyzer 0 % (0-5); Neutrophil # 6.55 X10^3/uL (2.7-7.7); Platelet Count 229 K/mm3 (150-450); RBC Distribution Width CV 13.7 % (11.6-14.6); RBC Distribution Width SD 46.4 fl (35.1-43.9); Red Blood Count 5.28 M/mm3 (4.2-5.4); White Blood Count 8.8 K/mm3 (4.4-11.0)
[2020-06-06] MEDS: HYDROmorphone 1 MG/ML Syringe 0.5 MG IV (11:38)
[2020-06-06 11:52] LABS: AST(SGOT) 20 U/L (15-37); Alanine Aminotransfer ALT/SGPT 33 U/L (13-56); Albumin, Serum 3.6 g/dL (3.2-5.0); Alkaline Phosphatase 70 U/L (45-117); Anion Gap 8 (5-15); BUN 16 mg/dL (7-18); BUN/Creat Ratio 17.9 RATIO (10-20); Calcium,Total 9.3 mg/dL (8.5-10.1); Chloride 105 mmol/L (98-107); Creatinine, Serum 0.89 mg/dL (0.55-1.02); EST Glomerular Filtration Rate 65 mL/min (>60); Est Glom Filt Rate - Afr Amer 79 mL/min (>60); Estimated Creatinine Clearance 42.53 ml/min; Globulin 3.6 g/dL (2.2-4.2); Glucose 90 mg/dL (74-106); Potassium 3.8 mmol/L (3.5-5.1); Protein, Total 7.2 g/dL (6.4-8.2); Sodium Level 141 mmol/L (136-145)
[2020-06-06 12:44] LABS: D-Dimer Quantitative (DVT/PE) 0.69 FEU/ug/m (0.27-0.49)
[2020-06-06 13:08] VITALS: BP 184/104; PULSE 8; RESP 16; TEMP 36.6; O2SAT 94
--- NOTE | 2020-06-06 13:52 | PCM.HP.STD ---
<Kelly Krishnamurthy ASSISTANT ELEMENTARY TEACHER - Last Filed: 06/06/20 14:20> Problem List (1) Left lumbar radiculopathy Status: Acute (2) Arthritis Status: Chronic History of Present Illness Date of Admission: 06/06/20 Chief Complaint: Left back and leg pain. The patient is a 74 year old F who presents to the Emergency Department due back pain. Patient states this began suddenly on Sunday night. Pain is on her left lower back and radiates down her left leg all the way to her toes. She denies injury, heavy lifting or other aggravating factor. Patient came to the ER on Sunday night due to pain and decided to go home on pain medication and outpatient follow-up however pain has worsened since that time. She denies loss of bowel or bladder function. States pain is significantly worse with standing and lying flat. Denies numbness of the left leg. States pain feels like an intense burning sensation. She reports a history of generalized arthritis however denies history of back pain. She states she follows with a esol instructor, Dr. Randle however denies rheumatoid arthritis. States she thinks she is being treated for osteoarthritis. She denies other medical history. Past Medical History Past Medical History (Chronic Problems): Chronic Problems Arthritis (Chronic) Allergies codeine Allergy (Verified 06/06/20 09:51) Vomiting Home Medications: Ambulatory Orders Medication Instructions Recorded Cholecalciferol (Vitamin D3) 1,000 unit PO DAILY 08/18/13 [Vitamin D3] Lansoprazole [Prevacid] 30 mg PO DAILY 08/18/13 Gabapentin 300 mg PO TID 30 Days #89 cap 06/04/20 Oxycodone HCl/Acetaminophen 1 tab PO Q6H PRN PRN 3 Days #12 tab 06/04/20 [Percocet 5/325] Leflunomide [Arava] 10 mg PO DAILY 06/06/20 Surgical History: - - Right nephrectomy, left knee replacement, cholecystectomy, hysterectomy. Psychiatric History: No pertinent psych hx ASSOCIATE DIRECTOR FINANCE History: No pertinent ASSOCIATE DIRECTOR FINANCE history Lives: Spouse/ Significant Other Smoking Status: Never smoker Alcohol: None Drugs: None - *Family History Maternal History Items: - - Pancreatic cancer Paternal History Items: - - CVA Review of Systems Constitutional: Denies: Chills, Fever, Weight Change HEENT: Denies: Head Aches, Sinus Congestion, Sinus Drainage Cardiovascular: Denies: Chest Pain, Palpitations Respiratory: Denies: Cough, Shortness of breath at rest, Sputum production Gastrointestinal: Denies: Abdominal Pain, Nausea, Vomiting Genitourinary: Denies: Dysuria Musculoskeletal: Reports: - - Back pain radiating to left leg Skin: Denies: Rash, Wounds Neurological: Denies: Numbness, Tingling, Focal weakness Psychiatric: Denies: Anxiety, Depression, Homicidal Ideations, Suicidal Ideations Hematologic/ Lymphatic: Denies: Easy Bruising, Easy Bleeding VTE Information - Inpt Only VTE Present on Admission: No VTE Mechan Device Prophylaxis: None VTE Pharm Prophylaxis ordered?: Yes Patient Problems: Active and Suspected Problems Left lumbar radiculopathy (Acute) - Physical Exam Vitals/I&O's: Vital Signs Temp Pulse Resp BP Pulse Ox 98 F 8 L 16 184/104 H 94 06/06/20 13:08 06/06/20 13:08 06/06/20 13:08 06/06/20 13:08 06/06/20 13:08 Oxygen Delivery Method Room Air Weight: 160 lb Body Mass Index (BMI) 29.2 General: Alert, Oriented x3, Cooperative, - - Appears uncomfortable HEENT: Atraumatic, PERRLA, EOMI, Normocephalic Neck: Supple, No JVD, Negative Carotid Bruits Lungs: Clear to auscultation, Normal air movement Cardiovascular: Regular rate, No murmurs Abdomen: Bowel Sounds Present, Soft, Non Tender, Non-Distended Extremities: No clubbing, No cyanosis, No edema Skin: No rashes, No breakdown Musculoskeletal: No Tenderness to Palpation of Joints or Extremities Neurological: Cranial nerves II-XII grossly intact, Neuro grossly intact Psych/Mental Status: Normal Affect, Appropriate Laboratory Results 06/06/20 11:25: WBC 8.8, RBC 5.28, Hgb 15.9 H, Hct 49.1 H, MCV 93.0, MCH 30.1, MCHC 32.4, RDW Std Deviation 46.4 H, RDW Coeff of Yousuf 13.7, Plt Count 229, MPV 11.3, Immature Gran % (Auto) 0.700, Neut % (Auto) 74.0 H, Lymph % (Auto) 13.5 L, Laurens % (Auto) 10.4 H, Eos % (Auto) 0.6, Baso % (Auto) 0.8, Absolute Neuts (auto) 6.6, Absolute Lymphs (auto) 1.19, Nucleated RBC % 0 06/06/20 11:25: D-Dimer Quant (PE/DVT) 0.69 H* 06/06/20 11:25: Sodium 141, Potassium 3.8, Chloride 105, Carbon Dioxide 28.0, Anion Gap 8, BUN 16, Creatinine 0.89, Estim Creat Clear Calc 42.53, Est GFR (MDRD) Af Amer 79, Est GFR (MDRD) Non-Af 65, BUN/Creatinine Ratio 17.9, Glucose 90, Calcium 9.3, Total Bilirubin 0.70, AST 20, ALT 33, Alkaline Phosphatase 70, Total Protein 7.2, Albumin 3.6, Globulin 3.6, Albumin/Globulin Ratio 1.0 Assessment/Plan All Active Problems Left lumbar radiculopathy (Acute) 1. Left lumbar radiculopathy-recent lumbar x-ray shows degenerative changes of the spine. Obtain MRI lumbar spine. PT/OT. Scheduled gabapentin. As needed pain regimen. Fall precautions. 2. Unspecified arthritis-patient takes leflunomide and as needed prednisone. Follows with rheumatology, Dr. Randle. She denies rheumatoid arthritis diagnosis. States she is being treated for osteoarthritis. Will obtain medical records. Follows with pain management as well for chronic pain related to arthritis. 3. Elevated blood pressure without history of hypertension-secondary to acute pain. As needed hydralazine for systolic blood pressure greater than 160. DVT prophylaxis-Lovenox subcu This patient was seen by LAUREN Baum under the supervision of Dr. Bai. 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 She came to ER on Sunday and had x-rays of pelvic and hip joint which showed arthritis but she did not want to be admitted on that day. She had worsening of pain she describes 01/16, starting from lumbar spine with radiation to left great toe along the buttock and calf. She denies any new changes in her urine or fecal or bladder incontinence. Pain is aggravated when standing or lying flat. In ED, blood pressure was high 184/104 and was lying on on the previous ED visit, 200/104 she is not on antihypertensive medication. She denies any cardiopulmonary chronic disease, peripheral arterial disease or stroke. No history of smoking. [] Past Medical History Allergies codeine Allergy (Verified 06/06/20 09:51) Vomiting - *Family History Maternal History Items: - Paternal History Items: - Review of Systems Musculoskeletal: Reports: Back Pain, Joint Pain, Joint stiffness, Leg Pain, - Neurological: Reports: Balance problems Objective: Physical exam General: Alert, Oriented x3, Cooperative HEENT: Atraumatic, PERRLA, EOMI, Normocephalic Oral: No Gingival or Mucosal Lesions/ Ulcerations Neck: Supple, No JVD, Negative Carotid Bruits Lungs: Air entry equal in bilateral lung bases. No crepitation/rhonchi Cardiovascular: Regular rate, Regular Rhythm, Normal S1, Normal S2, No murmurs Abdomen: Bowel Sounds Present, Soft, Non Tender, Non-Distended : No renal angle tenderness. No suprapubic tenderness. Extremities: No edema, Capillary Refill Less than 3 Seconds Skin: No rashes, No breakdown Musculoskeletal: No Tenderness to Palpation of Joints or Extremities Spine: Tenderness present over lumbar spine and paraspinal muscle especially on the left side. SLR bilateral negative. She got Dilaudid before exam. Neurological: Cranial nerves II-XII grossly intact, Deep Tendon Reflexes 2+/4 Decreased touch sensation on the medial aspect of left foot along great toe. Psych/Mental Status: Normal Affect, Appropriate. - Physical Exam Vitals/I&O's: Vital Signs Temp Pulse Resp BP Pulse Ox 98.0 F 81 18 165/95 H 95 06/06/20 13:54 06/06/20 13:54 06/06/20 13:54 06/06/20 13:54 06/06/20 13:54 Oxygen Delivery Method Room Air Weight: 161 lb 2.526 oz Body Mass Index (BMI) 29.5 Laboratory Results 06/06/20 11:25: WBC 8.8, RBC 5.28, Hgb 15.9 H, Hct 49.1 H, MCV 93.0, MCH 30.1, MCHC 32.4, RDW Std Deviation 46.4 H, RDW Coeff of Yousuf 13.7, Plt Count 229, MPV 11.3, Immature Gran % (Auto) 0.700, Neut % (Auto) 74.0 H, Lymph % (Auto) 13.5 L, Laurens % (Auto) 10.4 H, Eos % (Auto) 0.6, Baso % (Auto) 0.8, Absolute Neuts (auto) 6.6, Absolute Lymphs (auto) 1.19, Nucleated RBC % 0 06/06/20 11:25: D-Dimer Quant (PE/DVT) 0.69 H* 06/06/20 11:25: Sodium 141, Potassium 3.8, Chloride 105, Carbon Dioxide 28.0, Anion Gap 8, BUN 16, Creatinine 0.89, Estim Creat Clear Calc 42.53, Est GFR (MDRD) Af Amer 79, Est GFR (MDRD) Non-Af 65, BUN/Creatinine Ratio 17.9, Glucose 90, Calcium 9.3, Total Bilirubin 0.70, AST 20, ALT 33, Alkaline Phosphatase 70, Total Protein 7.2, Albumin 3.6, Globulin 3.6, Albumin/Globulin Ratio 1.0 Current Medications Acetaminophen (Acetaminophen 325 Mg Tablet) 650 mg PO Q6H PRN PRN PRN Reason: Pain Score 1-10/Temp > 100.7 F Enoxaparin Sodium (Enoxaparin 40 Mg/0.4 Ml Syringe) 40 mg SC DAILY [facility] Gabapentin (Gabapentin 300 Mg Capsule) 300 mg PO TID [facility] Hydralazine HCl (Hydralazine 20 Mg/Ml Vial) 10 mg IV Q6H PRN PRN PRN Reason: BLOOD PRESSURE Hydromorphone HCl (Hydromorphone 0.5 Mg/0.5 Ml Syringe) 0.5 mg IV Q4H PRN PRN PRN Reason: Pain Score 6-10 Lactated Ringer's () 1,000 mls @ 75 mls/hr IV .[id number] [facility] Stop: 06/07/20 03:11 Sodium Chloride () 250 mls @ 15 mls/hr IV .[id number] PRN PRN Reason: Saline Flush Leflunomide (Leflunomide 10 Mg Tablet) 10 mg PO DAILY [facility] Nitroglycerin (Nitroglycerin (Inpatient Use) 0.4 Mg Tab.Subl) 0.4 mg SUBLINGUAL Q5M PRN PRN Reason: CARDIAC/CHEST PAIN Non-Formulary Medication (Lansoprazole) 30 mg PO DAILY [facility] Nutritional Formula (Lactose Free) (Ensure Enlive 120 Ml Liquid) 120 ml PO 4X/DAY [facility] Ondansetron HCl (Ondansetron 4 Mg/2 Ml Vial) 4 mg IV Q8H PRN PRN PRN Reason: NAUSEA/VOMITING Oxycodone HCl (Oxycodone 5 Mg Tablet) 5 mg PO Q4H PRN PRN PRN Reason: Pain Score 4-5 Pantoprazole Sodium (Pantoprazole Sodium 40 Mg Tablet) 40 mg PO DAILY [facility] Prochlorperazine Edisylate (Prochlorperazine 10 Mg/2 Ml Vial) 5 mg IV Q4H PRN PRN PRN Reason: Breakthrough nausea/vomiting Psyllium Hydrophilic Mucilloid (Psyllium 1 Packet) 1 packet PO DAILY [facility] Senna/Docusate Sodium (Senna/Docusate Sodium 1 Tablet) 2 tablet PO BID [facility] Sodium Chloride (0.9% Saline Lock 10 Ml Syringe) 10 - 40 ml IV UD PRN PRN Reason: SALINE FLUSH Assessment/Plan This patient was seen in conjunction with ASSISTANT ELEMENTARY TEACHER, Kelly. I have independently interviewed and examined the patient and reviewed pertinent history, examination findings, laboratory and plan of management. I have reviewed the note and agree with the documented findings with the few additional points. In brief, patient is admitted for left lumbar radiculopathy. Patient admitted to [facility] floor. On pain medication and muscle relaxant. MRI lumbar spine ordered. Home medications including gabapentin and leflunomide continued. PT OT ordered. Hypertension: Started on HCTZ and hydralazine 10 mg IV as needed for systolic blood pressure more than 180 mmHg. Living will/advanced directive/end of life care: Patient does have living will or advanced directive and DURABLE POWER OF [employer] of health. After discussion of benefits/risks procedures involved with full code, DNR CC arrest and DNR CC, the patient opted for DNR-CC Arrest with no intubation Patient does not want artificial life support including intubation, tube feed, ventilator and/chest compression, central venous catheter, vasopressor and DC shock if needed Total time spent in [id number] encounter in discussion of advanced directive 16 minutes. I have discussed my assessment with ASSISTANT ELEMENTARY TEACHERKelly and orders have been reviewed. OBSV E&M: 10316 Initial observation care L3 Procedures: 72080 Advncd Care Plan 30 Min
[2020-06-06 13:54] VITALS: BP 165/95; PULSE 81; RESP 18; TEMP 36.7; O2SAT 95; BMI 29.5
[2020-06-06 14:09] VITALS: BMI 29.5
[2020-06-06 14:10] VITALS: PULSE 80
[2020-06-06] MEDS: 0.9% Saline Lock 10 ML Syringe IV (14:33)
[2020-06-06] MEDS: Lactated Ringers 1,000 ML 75 ML IV (14:33)
[2020-06-06] MEDS: Pantoprazole Sodium 40 MG Tablet PO (14:34)
[2020-06-06] MEDS: Enoxaparin 40 MG/0.4 ML Syringe SC (14:34)
[2020-06-06] MEDS: Gabapentin 300 MG Capsule PO (16:01)
[2020-06-06] MEDS: hydroCHLOROthiazide 12.5mg 12.5 MG PO (16:03)
[2020-06-06 18:47] VITALS: O2SAT 95
[2020-06-06] MEDS: Senna/Docusate Sodium 1 Tablet 2 TABLET PO (19:29)
[2020-06-06] MEDS: oxyCODONE 5 MG Tablet PO (19:30)
[2020-06-06] MEDS: Acetaminophen 325 MG Tablet 650 MG PO (19:30)
[2020-06-06 22:05] VITALS: BP 142/64; PULSE 89; RESP 16; TEMP 36.8; O2SAT 95
[2020-06-07] VITALS (8 sets, daily range): BP systolic 124–177; BP diastolic 72–84; PULSE 75–99; RESP 14–18; TEMP 36.4–36.8; O2SAT 93–97
[2020-06-07] MEDS: Acetaminophen 325 MG Tablet 650 MG PO (04:03)
[2020-06-07] MEDS: hydrALAZINE 20 MG/ML Vial 10 MG IV (04:03)
[2020-06-07] MEDS: 0.9% Saline Lock 10 ML Syringe IV ×2 (04:04→19:54)
[2020-06-07] MEDS: oxyCODONE 5 MG Tablet PO ×4 (04:25→16:59)
--- NOTE | 2020-06-07 05:55 | MRI_ITS ---
STUDY: MRI LUMBAR SPINE WITHOUT CONTRAST REASON FOR EXAM: Female, 74 years old. lumbar radiculopahthy -- back pain with radiation to left great toe TECHNIQUE: Standardized fat and water weighted pulse sequences were obtained in the sagittal and axial planes. COMPARISON: 05/22/2018 FINDINGS: Normal lumbar lordosis. There is no substantial scoliosis. Normal conus medullaris that terminates at the L1. L1-2: There is minimal disc space narrowing and endplate spondylosis. There is no significant disc herniation, central canal or foraminal stenosis. L2-3: There is minimal disc space narrowing and endplate spondylosis. There is no significant disc herniation, central canal or foraminal stenosis. Mild facet arthropathy L3-4: There is minimal disc space narrowing and endplate spondylosis. There is no significant disc herniation, central canal or foraminal stenosis. Mild facet arthropathy. There is large vertebral hemangioma at L3. L4-5: There is mild disc space narrowing and endplates spondylosis. Mild disc bulge and moderate facet arthropathy without significant central canal stenosis. Mild right and minimal left foraminal stenosis. L5-S1: There is moderate disc space narrowing and endplates spondylosis. Severe facet arthropathy. There is grade 1 anterolisthesis with disc uncovering. Additionally, there is new left paracentral/foraminal extrusion (axial T2 image #5 series 5) with severe left lateral recess narrowing and foraminal stenosis. There is no significant central canal or right foraminal stenosis. Normal visualized sacral ala. MRI/Spine Lumbar (Routine) IMPRESSION: L5/S1: New left disc extrusion with severe left lateral recess and foraminal stenosis Electronically Signed: Alexandru Jessica MD at 10:45 EST Tel , Service support ,
[2020-06-07 06:22] LABS: Basophil# 0.02 X10^3/uL; Basophil% 0.2 % (0-1); Eosinophil# 0.02 X10^3/uL; Eosinophils% 0.2 % (0-5); Hematocrit 44.8 % (37-47); Hemoglobin 14.6 g/dL (12.0-15.0); Lymphocyte % 7.7 % (19-41); Mean Corp Hgb Conc 32.6 g/dL (32-36); Mean Corpuscular Hgb 29.1 pg (27.0-32.0); Mean Corpuscular Volume 89.2 fL (81-99); Mean Platelet Vol. 11.6 fl (6.2-12.0); Monocyte# 0.56 X10^3/uL; Monocyte% 5.4 % (0-10); NRBC Flagged by Analyzer 0 % (0-5); Neutrophil # 8.96 X10^3/uL (2.7-7.7); Neutrophil % 85.9 % (47-70); Platelet Count 239 K/mm3 (150-450); RBC Distribution Width CV 13.2 % (11.6-14.6); Red Blood Count 5.02 M/mm3 (4.2-5.4); White Blood Count 10.4 K/mm3 (4.4-11.0)
[2020-06-07] MEDS: Gabapentin 300 MG Capsule PO ×3 (07:55→16:59)
[2020-06-07] MEDS: Pantoprazole Sodium 40 MG Tablet PO (07:55)
[2020-06-07] MEDS: Enoxaparin 40 MG/0.4 ML Syringe SC (07:56)
[2020-06-07] MEDS: hydroCHLOROthiazide 12.5mg 12.5 MG PO (07:56)
[2020-06-07] MEDS: Leflunomide 10 MG TABLET PO (07:56)
[2020-06-07] MEDS: diazePAM 2 MG Tablet PO (09:35)
--- NOTE | 2020-06-07 10:02 | NURSING ---
pt to mri
[2020-06-07] MEDS: Senna/Docusate Sodium 1 Tablet 2 TABLET PO ×2 (11:37→22:15)
--- NOTE | 2020-06-07 12:40 | PCM.PROGNOTE ---
<Kelly Krishnamurthy POLL CLERK - Last Filed: 06/07/20 12:46> Patient Problems: Active and Suspected Problems Left lumbar radiculopathy (Acute) Subjective: Patient seen and examined. States pain is slightly improved with pain medication however continues to have significant burning and pain from her left lower back down her left leg. Denies left lower extremity weakness. Denies urinary or bowel incontinence. Denies left lower extremity numbness. - Physical Exam Vitals/I&O's: Vital Signs Temp Pulse Resp BP Pulse Ox 98.2 F 99 14 151/79 H 94 06/07/20 08:03 06/07/20 10:20 06/07/20 10:20 06/07/20 10:20 06/07/20 10:20 Oxygen Delivery Method Room Air Weight: 161 lb 2.526 oz Body Mass Index (BMI) 29.5 Intake and Output for Last 24 Hours 06/05/20 06/06/20 06/07/20 23:59 23:59 23:59 Intake Total 650 / 650 1450 / 1450 Output Total 1150 / 1150 1300 / 1300 Balance -500 / -500 150 / 150 General: Alert, Oriented x3, Cooperative HEENT: Atraumatic, PERRLA, EOMI, Normocephalic Neck: Supple, No JVD, Negative Carotid Bruits Lungs: Clear to auscultation, Normal air movement Cardiovascular: Regular rate, No murmurs Abdomen: Bowel Sounds Present, Soft, Non Tender Extremities: No clubbing, No cyanosis, No edema, Capillary Refill Less than 3 Seconds Skin: No rashes, No breakdown Musculoskeletal: No Tenderness to Palpation of Joints or Extremities Neurological: Cranial nerves II-XII grossly intact, Neuro grossly intact Psych/Mental Status: Normal Affect, Appropriate Laboratory Results 06/06/20 11:25: D-Dimer Quant (PE/DVT) 0.69 H* 06/07/20 05:55: WBC 10.4, RBC 5.02, Hgb 14.6, Hct 44.8, MCV 89.2, MCH 29.1, MCHC 32.6, RDW Std Deviation 43.0, RDW Coeff of Yousuf 13.2, Plt Count 239, MPV 11.6, Immature Gran % (Auto) 0.600, Neut % (Auto) 85.9 H, Lymph % (Auto) 7.7 L, [place] % (Auto) 5.4, Eos % (Auto) 0.2, Baso % (Auto) 0.2, Absolute Neuts (auto) 9.0 H, Absolute Lymphs (auto) 0.80 L, Nucleated RBC % 0 Current Medications Acetaminophen (Acetaminophen 325 Mg Tablet) 650 mg PO Q6H PRN PRN PRN Reason: Pain Score 1-10/Temp > 100.7 F Last Admin: 06/07/20 04:03 Dose: 650 mg Documented by: Cyclobenzaprine HCl (Cyclobenzaprine Hcl 10 Mg Tablet) 10 mg PO TID PRN PRN PRN Reason: muscle pain Enoxaparin Sodium (Enoxaparin 40 Mg/0.4 Ml Syringe) 40 mg SC DAILY [facility] Last Admin: 06/07/20 07:56 Dose: 40 mg Documented by: Gabapentin (Gabapentin 300 Mg Capsule) 300 mg PO TIDCM [facility] Last Admin: 06/07/20 11:37 Dose: 300 mg Documented by: Hydralazine HCl (Hydralazine 20 Mg/Ml Vial) 10 mg IV Q6H PRN PRN PRN Reason: SBP>180 mmhg Last Admin: 06/07/20 04:03 Dose: 10 mg Documented by: Hydrochlorothiazide (Hydrochlorothiazide 12.5mg) 12.5 mg PO DAILY [facility] Last Admin: 06/07/20 07:56 Dose: 12.5 mg Documented by: Hydromorphone HCl (Hydromorphone 0.5 Mg/0.5 Ml Syringe) 0.5 mg IV Q4H PRN PRN PRN Reason: Pain Score 6-10 Sodium Chloride () 250 mls @ 15 mls/hr IV .[id number] PRN PRN Reason: Saline Flush Leflunomide (Leflunomide 10 Mg Tablet) 10 mg PO DAILY [facility] Last Admin: 06/07/20 07:56 Dose: 10 mg Documented by: Nitroglycerin (Nitroglycerin (Inpatient Use) 0.4 Mg Tab.Subl) 0.4 mg SUBLINGUAL Q5M PRN PRN Reason: CARDIAC/CHEST PAIN Nutritional Formula (Lactose Free) (Ensure Enlive 120 Ml Liquid) 120 ml PO 4X/DAY [facility] Last Admin: 06/07/20 08:01 Dose: 120 ml Documented by: Ondansetron HCl (Ondansetron 4 Mg/2 Ml Vial) 4 mg IV Q8H PRN PRN PRN Reason: NAUSEA/VOMITING Oxycodone HCl (Oxycodone 5 Mg Tablet) 5 mg PO Q4H PRN PRN PRN Reason: Pain Score 4-5 Last Admin: 06/07/20 08:24 Dose: 5 mg Documented by: Pantoprazole Sodium (Pantoprazole Sodium 40 Mg Tablet) 40 mg PO DAILY [facility] Last Admin: 06/07/20 07:55 Dose: 40 mg Documented by: Prochlorperazine Edisylate (Prochlorperazine 10 Mg/2 Ml Vial) 5 mg IV Q4H PRN PRN PRN Reason: Breakthrough nausea/vomiting Psyllium Hydrophilic Mucilloid (Psyllium 1 Packet) 1 packet PO DAILY [facility] Last Admin: 06/07/20 11:38 Dose: Not Given Documented by: Senna/Docusate Sodium (Senna/Docusate Sodium 1 Tablet) 2 tablet PO BID [facility] Last Admin: 06/07/20 11:37 Dose: 1 tablet Documented by: Sodium Chloride (0.9% Saline Lock 10 Ml Syringe) 10 - 40 ml IV UD PRN PRN Reason: SALINE FLUSH Last Admin: 06/07/20 04:04 Dose: 20 ml Documented by: Medical Necessity - Tobacco Use Smoking Status: Never smoker Assessment/Plan All Active Problems Left lumbar radiculopathy (Acute) 1. Left lumbar radiculopathy, left disc extrusion-recent lumbar x-ray shows degenerative changes of the spine. MRI of lumbar spine shows new left disc extrusion with severe left lateral recess and foraminal stenosis. PT/OT. Scheduled gabapentin. As needed pain regimen. Fall precautions. Dr. Ochoa, spine surgery consulted. 2. Unspecified arthritis-patient takes leflunomide and as needed prednisone. Follows with rheumatology, Dr. Randle. She denies rheumatoid arthritis diagnosis. States she is being treated for osteoarthritis. Follows with pain management as well for chronic pain related to arthritis. Requested records from well head pumper. 3. Elevated blood pressure without history of hypertension-suspect secondary to acute pain. As needed hydralazine for systolic blood pressure greater than 160. Will begin lisinopril 10 mg daily. DVT prophylaxis-Lovenox subcu This patient was seen by LAUREN Baum under the supervision of Dr. Mitchell. <Prachi Mitchell E - Last Filed: 06/07/20 13:20> - Physical Exam Vitals/I&O's: Vital Signs Temp Pulse Resp BP Pulse Ox 98.2 F 99 14 151/79 H 94 06/07/20 08:03 06/07/20 10:20 06/07/20 10:20 06/07/20 10:20 06/07/20 10:20 Oxygen Delivery Method Room Air Weight: 161 lb 2.526 oz Body Mass Index (BMI) 29.5 Intake and Output for Last 24 Hours 06/05/20 06/06/20 06/07/20 23:59 23:59 23:59 Intake Total 650 / 650 1450 / 1450 Output Total 1150 / 1150 1300 / 1300 Balance -500 / -500 150 / 150 Laboratory Results 06/07/20 05:55: WBC 10.4, RBC 5.02, Hgb 14.6, Hct 44.8, MCV 89.2, MCH 29.1, MCHC 32.6, RDW Std Deviation 43.0, RDW Coeff of Yousuf 13.2, Plt Count 239, MPV 11.6, Immature Gran % (Auto) 0.600, Neut % (Auto) 85.9 H, Lymph % (Auto) 7.7 L, [place] % (Auto) 5.4, Eos % (Auto) 0.2, Baso % (Auto) 0.2, Absolute Neuts (auto) 9.0 H, Absolute Lymphs (auto) 0.80 L, Nucleated RBC % 0 Current Medications Acetaminophen (Acetaminophen 325 Mg Tablet) 650 mg PO Q6H PRN PRN PRN Reason: Pain Score 1-10/Temp > 100.7 F Last Admin: 06/07/20 04:03 Dose: 650 mg Documented by: Cyclobenzaprine HCl (Cyclobenzaprine Hcl 10 Mg Tablet) 10 mg PO TID PRN PRN PRN Reason: muscle pain Enoxaparin Sodium (Enoxaparin 40 Mg/0.4 Ml Syringe) 40 mg SC DAILY [facility] Last Admin: 06/07/20 07:56 Dose: 40 mg Documented by: Gabapentin (Gabapentin 300 Mg Capsule) 300 mg PO TIDCM [facility] Last Admin: 06/07/20 11:37 Dose: 300 mg Documented by: Hydralazine HCl (Hydralazine 20 Mg/Ml Vial) 10 mg IV Q6H PRN PRN PRN Reason: SBP>180 mmhg Last Admin: 06/07/20 04:03 Dose: 10 mg Documented by: Hydromorphone HCl (Hydromorphone 0.5 Mg/0.5 Ml Syringe) 0.5 mg IV Q4H PRN PRN PRN Reason: Pain Score 6-10 Sodium Chloride () 250 mls @ 15 mls/hr IV .[id number] PRN PRN Reason: Saline Flush Leflunomide (Leflunomide 10 Mg Tablet) 10 mg PO DAILY [facility] Last Admin: 06/07/20 07:56 Dose: 10 mg Documented by: Lisinopril (Lisinopril 10 Mg Tablet) 10 mg PO DAILY [facility] Nitroglycerin (Nitroglycerin (Inpatient Use) 0.4 Mg Tab.Subl) 0.4 mg SUBLINGUAL Q5M PRN PRN Reason: CARDIAC/CHEST PAIN Nutritional Formula (Lactose Free) (Ensure Enlive 120 Ml Liquid) 120 ml PO 4X/DAY [facility] Last Admin: 06/07/20 13:04 Dose: 120 ml Documented by: Ondansetron HCl (Ondansetron 4 Mg/2 Ml Vial) 4 mg IV Q8H PRN PRN PRN Reason: NAUSEA/VOMITING Oxycodone HCl (Oxycodone 5 Mg Tablet) 5 mg PO Q4H PRN PRN PRN Reason: Pain Score 4-5 Last Admin: 06/07/20 13:06 Dose: 5 mg Documented by: Pantoprazole Sodium (Pantoprazole Sodium 40 Mg Tablet) 40 mg PO DAILY [facility] Last Admin: 06/07/20 07:55 Dose: 40 mg Documented by: Prochlorperazine Edisylate (Prochlorperazine 10 Mg/2 Ml Vial) 5 mg IV Q4H PRN PRN PRN Reason: Breakthrough nausea/vomiting Psyllium Hydrophilic Mucilloid (Psyllium 1 Packet) 1 packet PO DAILY [facility] Last Admin: 06/07/20 11:38 Dose: Not Given Documented by: Senna/Docusate Sodium (Senna/Docusate Sodium 1 Tablet) 2 tablet PO BID [facility] Last Admin: 06/07/20 11:37 Dose: 1 tablet Documented by: Sodium Chloride (0.9% Saline Lock 10 Ml Syringe) 10 - 40 ml IV UD PRN PRN Reason: SALINE FLUSH Last Admin: 06/07/20 04:04 Dose: 20 ml Documented by: Assessment/Plan Hospitalist note: I am seeing this patient in conjunction with Kelly Krishnamurthy. I independently seen and examined the patient. Progress note above, laboratory data and imaging studies reviewed and I concur with above treatment plan. Patient mentioned that her back pain slightly improved compared to yesterday, still having left calf pain. She denied focal weakness. She denied urinary or stool incontinence. MRI was done today and showed L5-S1 new left disc extrusion with severe lateral recess and foraminal stenosis. Her blood pressure slight elevated because of pain, other vital signs are stable. - Physical Exam General: Alert, Oriented x3, Cooperative, No apparent distress. HEENT: Atraumatic, PERRLA, EOMI. Neck: Supple, No JVD, Negative Carotid Bruits, Trachea Midline, Thyroid Normal. Lungs: Clear to auscultation, Normal air movement, No rhonchi, No wheeze, No rales. Cardiovascular: Regular rate, Regular Rhythm, Normal S1, Normal S2, PMI Normal. Abdomen: Bowel Sounds Present, Soft, Non Tender, Non-Distended, No Hepato-splenomegaly. Extremities: No clubbing, No cyanosis, No edema Skin: No rashes, No breakdown Neurological: Cranial nerves are intact, neuro grossly intact. Assessment and plan: #1 acute intractable low back pain/left lumbar radiculopathy: Due to L5-S1 left disc extrusion with severe lateral recess and from the stenosis. She is on IV Dilaudid, OxyIR as needed for pain. MRI lumbar spine reviewed. She is on gabapentin as well. Dr. Ochoa, the spine surgeon, was consulted and awaiting his recommendations. #2 elevated blood pressure: Without history of hypertension, likely because of intractable pain. She is on IV hydralazine as needed. Started on lisinopril. #3 other chronic medical problems: Stable, continue current medications as above. This note was generated with [employer] software. It may contain incorrect words, spelling, and punctuation that were not noted in checking the note before signing. OBSV E&M: 12079 Subsequent observation care L2
[2020-06-07] MEDS: cycloBENZAPRine HCl 10 MG Tablet PO ×2 (16:05→22:15)
--- NOTE | 2020-06-07 16:25 | VDLE_ITS ---
Reason For Study: Pain Procedure LEFT This is a venous duplex using B-mode, color GSV is normal. flow and spectral Doppler. CFV is compressible, spontaneous, phasic, Exam performed portable in patient room. competent, and demonstrates normal A preliminary report was called and/or faxed augmentation. to [facility]. FV is compressible, spontaneous, phasic, competent and demonstrates normal augmentation. POP V is compressible, spontaneous, phasic, competent and demonstrates normal augmentation. T/P Trunk is compressible. PTV is compressible. LT PerV is compressible. Interpretation Summary There is no evidence of left lower extremity deep vein thrombosis. Left great saphenous vein appears patent and compressible segmentally. Ordering Physician: Kelly Krishnamurthy Referring Physician: Ricardo Reynolds Performed By: Nuria Aranda RVT
[2020-06-07] MEDS: HYDROmorphone 0.5 MG/0.5 ML SYRINGE IV (19:54)
[2020-06-08 02:36] VITALS: BP 155/62; PULSE 72; RESP 18; TEMP 36.2; O2SAT 97
[2020-06-08] MEDS: oxyCODONE 5 MG Tablet PO (04:56)
[2020-06-08] MEDS: 0.9% Saline Lock 10 ML Syringe IV ×3 (07:36→21:52)
[2020-06-08] MEDS: HYDROmorphone 0.5 MG/0.5 ML SYRINGE IV (07:36)
[2020-06-08] MEDS: cycloBENZAPRine HCl 10 MG Tablet PO ×2 (07:36→20:41)
[2020-06-08] MEDS: Gabapentin 300 MG Capsule PO ×3 (07:59→17:14)
[2020-06-08 08:40] VITALS: BP 177/88; PULSE 88; RESP 18; TEMP 36.6; O2SAT 97
[2020-06-08 08:58] VITALS: O2SAT 97
--- NOTE | 2020-06-08 09:09 | PCM.CONS.B ---
- Consult Date of Consult: 06/08/20 - Reason for Consult Consultation: This patient is seen at the request of a hospitalist with a chief complaint of severe pain in her left buttocks that goes down her left thigh down her left leg. Pain started insidiously 6 days ago. She was seen in the emergency room 2 or 3 days ago and admitted to the hospital. Has never had pain like this in the past. She has never had low back surgery in the past. Pain has been severe in the left leg feels weak. States that the pain has been intractable. Denies any bowel or bladder dysfunction. She denies history of explained weight loss no fever sweats or chills. On examination she has positive straight leg raising on the left she has very positive tension signs she has weakness of the EHL on the left and weakness of the peroneals on the left. Patellar reflexes are equal and physiologic bilaterally. He has no specific muscle atrophy. I reviewed her MRI scan. 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 All on the left side consistent with her symptomatology. Did ask radiology to make some extra cuts so that I could see the very top of the sequestration. Plan: She is scheduled for a lumbar laminectomy discectomy on the left side for 17 June. The meantime I started her on a decreasing Decadron dose over the next couple of days. This will help her pain enough that she can go home for 2 or 3 days prior to her surgery. This is the end of consultation on Hilda Mullins
[2020-06-08] MEDS: dexAMETHasone 4 MG/ML Vial 2 MG IV ×2 (09:11→21:52)
[2020-06-08] MEDS: Senna/Docusate Sodium 1 Tablet 2 TABLET PO ×2 (09:16→21:13)
[2020-06-08] MEDS: Leflunomide 10 MG TABLET PO (09:16)
[2020-06-08] MEDS: Pantoprazole Sodium 40 MG Tablet PO (09:16)
[2020-06-08] MEDS: Enoxaparin 40 MG/0.4 ML Syringe SC (09:17)
[2020-06-08] MEDS: Lisinopril 10 MG Tablet PO (09:18)
--- NOTE | 2020-06-08 10:40 | CASEMGMT ---
RN CM Face to Face with patient for initial transition planning/care coordination assessment. RN CM introduced self and role at [facility]. Patient lying in bed, alert and oriented. Patient willing to participate in assessment and is able to answer all questions appropriately. Care providers, pharmacy, and demographics verified. Patient wishes to discharge home, denies need for home health at this time. Patient states she has no further needs or concerns at this time. CM to follow for discharge planning needs that may arise. PCP: Rodolfo Specialists: Razia patternmaker all around Preferred [facility]acy: [facility] Insurance: Shayna GIBBONS Prescription Benefit: yes Living Will/HPOA: yes, Alexey Mullins LNOK: , daughter Living Arrangements: Patient lives with in a 2 story home with bed and bath on the first floor. Patient states she is independent at home. Transportation: self/ DME/HHC: Patient states she has cane, walker, shower chair, and grab bars at home. Patient denies previous SNF or HHC. Disposition Plan: Patient to discharge home with family support and follow-up plans in place. Nuria BOJORQUEZ, RN, CM
--- NOTE | 2020-06-08 12:01 | PN_ITS ---
<Kelly Krishnamurthy LANDING MAN - Last Filed: 06/08/20 12:06> Patient Problems: Active and Suspected Problems Left lumbar radiculopathy (Acute) Subjective: Patient seen and examined. Continues to complain of left lower extremity pain. Reports left lower extremity weakness as well. Denies new symptoms or complaints. - Physical Exam Vitals/I&O's: Vital Signs Temp Pulse Resp BP Pulse Ox 97.8 F 88 18 177/88 H 97 06/08/20 08:40 06/08/20 08:40 06/08/20 08:40 06/08/20 08:40 06/08/20 08:58 Oxygen Delivery Method Room Air Weight: 161 lb 2.526 oz Body Mass Index (BMI) 29.5 Intake and Output for Last 24 Hours 06/06/20 06/07/20 06/08/20 23:59 23:59 23:59 Intake Total 650 / 650 2200 / 2200 300 / 300 Output Total 1150 / 1150 1500 / 1500 Balance -500 / -500 700 / 700 300 / 300 General: Alert, Oriented x3, Cooperative, - - Appears uncomfortable HEENT: Atraumatic, PERRLA, EOMI, Normocephalic Neck: Supple, No JVD, Negative Carotid Bruits Lungs: Clear to auscultation, Normal air movement Cardiovascular: Regular rate, No murmurs Abdomen: Bowel Sounds Present, Soft, Non Tender, Non-Distended Extremities: No clubbing, No cyanosis, No edema, Capillary Refill Less than 3 Seconds Skin: No rashes, No breakdown Musculoskeletal: No Tenderness to Palpation of Joints or Extremities, - - Left lower extremity weakness compared to right Neurological: Cranial nerves II-XII grossly intact, Neuro grossly intact Psych/Mental Status: Anxious, Restless Current Medications Acetaminophen (Acetaminophen 325 Mg Tablet) 650 mg PO Q6H PRN PRN PRN Reason: Pain Score 1-10/Temp > 100.7 F Last Admin: 06/07/20 04:03 Dose: 650 mg Documented by: Cyclobenzaprine HCl (Cyclobenzaprine Hcl 10 Mg Tablet) 10 mg PO TID PRN PRN PRN Reason: muscle pain Last Admin: 06/08/20 07:36 Dose: 10 mg Documented by: Dexamethasone Sodium Phosphate (Dexamethasone 4 Mg/Ml Vial) 8 mg IV UD [facility]; Taper Stop: 06/10/20 00:29 Last Admin: 06/08/20 09:11 Dose: 8 mg Documented by: Enoxaparin Sodium (Enoxaparin 40 Mg/0.4 Ml Syringe) 40 mg SC DAILY [facility] Last Admin: 06/08/20 09:17 Dose: 40 mg Documented by: Gabapentin (Gabapentin 300 Mg Capsule) 300 mg PO TIDCM [facility] Last Admin: 06/08/20 11:18 Dose: 300 mg Documented by: Hydralazine HCl (Hydralazine 20 Mg/Ml Vial) 10 mg IV Q6H PRN PRN PRN Reason: SBP>180 mmhg Last Admin: 06/07/20 04:03 Dose: 10 mg Documented by: Hydromorphone HCl (Hydromorphone 0.5 Mg/0.5 Ml Syringe) 0.5 mg IV Q4H PRN PRN PRN Reason: Pain Score 6-10 Last Admin: 06/08/20 07:36 Dose: 0.5 mg Documented by: Sodium Chloride () 250 mls @ 15 mls/hr IV .[id number] PRN PRN Reason: Saline Flush Leflunomide (Leflunomide 10 Mg Tablet) 10 mg PO DAILY [facility] Last Admin: 06/08/20 09:16 Dose: 10 mg Documented by: Lisinopril (Lisinopril 10 Mg Tablet) 10 mg PO DAILY [facility] Last Admin: 06/08/20 09:18 Dose: 10 mg Documented by: Nitroglycerin (Nitroglycerin (Inpatient Use) 0.4 Mg Tab.Subl) 0.4 mg SUBLINGUAL Q5M PRN PRN Reason: CARDIAC/CHEST PAIN Nutritional Formula (Lactose Free) (Ensure Enlive 120 Ml Liquid) 120 ml PO 4X/DAY [facility] Last Admin: 06/08/20 09:11 Dose: 120 ml Documented by: Ondansetron HCl (Ondansetron 4 Mg/2 Ml Vial) 4 mg IV Q8H PRN PRN PRN Reason: NAUSEA/VOMITING Oxycodone HCl (Oxycodone 5 Mg Tablet) 5 mg PO Q4H PRN PRN PRN Reason: Pain Score 4-5 Last Admin: 06/08/20 04:56 Dose: 5 mg Documented by: Pantoprazole Sodium (Pantoprazole Sodium 40 Mg Tablet) 40 mg PO DAILY [facility] Last Admin: 06/08/20 09:16 Dose: 40 mg Documented by: Prochlorperazine Edisylate (Prochlorperazine 10 Mg/2 Ml Vial) 5 mg IV Q4H PRN PRN PRN Reason: Breakthrough nausea/vomiting Psyllium Hydrophilic Mucilloid (Psyllium 1 Packet) 1 packet PO DAILY [facility] Last Admin: 06/08/20 09:19 Dose: Not Given Documented by: Senna/Docusate Sodium (Senna/Docusate Sodium 1 Tablet) 2 tablet PO BID [facility] Last Admin: 06/08/20 09:16 Dose: 1 tablet Documented by: Sodium Chloride (0.9% Saline Lock 10 Ml Syringe) 10 - 40 ml IV UD PRN PRN Reason: SALINE FLUSH Last Admin: 06/08/20 09:11 Dose: 10 ml Documented by: Medical Necessity - Tobacco Use Smoking Status: Never smoker Assessment/Plan All Active Problems Left lumbar radiculopathy (Acute) 1. Left lumbar radiculopathy, left disc extrusion-recent lumbar x-ray shows degenerative changes of the spine. MRI of lumbar spine shows new left disc extrusion with severe left lateral recess and foraminal stenosis. PT/OT. Scheduled gabapentin. As needed pain regimen. Fall precautions. Dr. Ochoa, spine surgery consulted. Plan for lumbar laminectomy discectomy on the left 06/17/2020. Initiated on IV Decadron given ongoing intractable pain. Plan for home pending improvement in pain and patient will return for surgery. 2. Unspecified arthritis-patient takes leflunomide and as needed prednisone. Follows with rheumatology, Dr. Randle. She denies rheumatoid arthritis diagnosis. States she is being treated for osteoarthritis. Follows with pain management as well for chronic pain related to arthritis. 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 3. Elevated blood pressure without history of hypertension-suspect secondary to acute pain. As needed hydralazine for systolic blood pressure greater than 160. Initiated on lisinopril 10 mg daily. DVT prophylaxis-Lovenox subcu This patient was seen by Kelly Krishnamurthy NP-Scar under the supervision of Dr. Mitchell. <Prachi Mitchell E - Last Filed: 06/08/20 12:17> - Physical Exam Vitals/I&O's: Vital Signs Temp Pulse Resp BP Pulse Ox 97.8 F 88 18 177/88 H 97 06/08/20 08:40 06/08/20 08:40 06/08/20 08:40 06/08/20 08:40 06/08/20 08:58 Oxygen Delivery Method Room Air Weight: 161 lb 2.526 oz Body Mass Index (BMI) 29.5 Intake and Output for Last 24 Hours 06/06/20 06/07/20 06/08/20 23:59 23:59 23:59 Intake Total 650 / 650 2200 / 2200 300 / 300 Output Total 1150 / 1150 1500 / 1500 Balance -500 / -500 700 / 700 300 / 300 Current Medications Acetaminophen (Acetaminophen 325 Mg Tablet) 650 mg PO Q6H PRN PRN PRN Reason: Pain Score 1-10/Temp > 100.7 F Last Admin: 06/07/20 04:03 Dose: 650 mg Documented by: Cyclobenzaprine HCl (Cyclobenzaprine Hcl 10 Mg Tablet) 10 mg PO TID PRN PRN PRN Reason: muscle pain Last Admin: 06/08/20 07:36 Dose: 10 mg Documented by: Dexamethasone Sodium Phosphate (Dexamethasone 4 Mg/Ml Vial) 8 mg IV [facility]; Taper Stop: 06/10/20 00:29 Last Admin: 06/08/20 09:11 Dose: 8 mg Documented by: Enoxaparin Sodium (Enoxaparin 40 Mg/0.4 Ml Syringe) 40 mg SC DAILY [facility] Last Admin: 06/08/20 09:17 Dose: 40 mg Documented by: Gabapentin (Gabapentin 300 Mg Capsule) 300 mg PO TIDCM [facility] Last Admin: 06/08/20 11:18 Dose: 300 mg Documented by: Hydralazine HCl (Hydralazine 20 Mg/Ml Vial) 10 mg IV Q6H PRN PRN PRN Reason: SBP>180 mmhg Last Admin: 06/07/20 04:03 Dose: 10 mg Documented by: Hydromorphone HCl (Hydromorphone 0.5 Mg/0.5 Ml Syringe) 0.5 mg IV Q4H PRN PRN PRN Reason: Pain Score 6-10 Last Admin: 06/08/20 07:36 Dose: 0.5 mg Documented by: Sodium Chloride () 250 mls @ 15 mls/hr IV .[id number] PRN PRN Reason: Saline Flush Leflunomide (Leflunomide 10 Mg Tablet) 10 mg PO DAILY [facility] Last Admin: 06/08/20 09:16 Dose: 10 mg Documented by: Lisinopril (Lisinopril 10 Mg Tablet) 10 mg PO DAILY [facility] Last Admin: 06/08/20 09:18 Dose: 10 mg Documented by: Nitroglycerin (Nitroglycerin (Inpatient Use) 0.4 Mg Tab.Subl) 0.4 mg SUBLINGUAL Q5M PRN PRN Reason: CARDIAC/CHEST PAIN Nutritional Formula (Lactose Free) (Ensure Enlive 120 Ml Liquid) 120 ml PO 4X/DAY [facility] Last Admin: 06/08/20 09:11 Dose: 120 ml Documented by: Ondansetron HCl (Ondansetron 4 Mg/2 Ml Vial) 4 mg IV Q8H PRN PRN PRN Reason: NAUSEA/VOMITING Oxycodone HCl (Oxycodone 5 Mg Tablet) 5 mg PO Q4H PRN PRN PRN Reason: Pain Score 4-5 Last Admin: 06/08/20 04:56 Dose: 5 mg Documented by: Pantoprazole Sodium (Pantoprazole Sodium 40 Mg Tablet) 40 mg PO DAILY [facility] Last Admin: 06/08/20 09:16 Dose: 40 mg Documented by: Prochlorperazine Edisylate (Prochlorperazine 10 Mg/2 Ml Vial) 5 mg IV Q4H PRN PRN PRN Reason: Breakthrough nausea/vomiting Psyllium Hydrophilic Mucilloid (Psyllium 1 Packet) 1 packet PO DAILY [facility] Last Admin: 06/08/20 09:19 Dose: Not Given Documented by: Senna/Docusate Sodium (Senna/Docusate Sodium 1 Tablet) 2 tablet PO BID [facility] Last Admin: 06/08/20 09:16 Dose: 1 tablet Documented by: Sodium Chloride (0.9% Saline Lock 10 Ml Syringe) 10 - 40 ml IV UD PRN PRN Reason: SALINE FLUSH Last Admin: 06/08/20 09:11 Dose: 10 ml Documented by: Assessment/Plan Hospitalist note: I am seeing this patient in conjunction with Kelly Krishnamurthy. I independently seen and examined the patient. Progress note above reviewed and I concur with above treatment plan. Today, patient continued to complain of severe left lower extremity pain, almost no improvement. Pain got worse with any type of movement. She reported some weakness on her left leg as well. Blood pressure slight elevated because of pain, other vital signs are stable. - Physical Exam General: Alert, Oriented x3, Cooperative, No apparent distress. HEENT: Atraumatic, PERRLA, EOMI. Neck: Supple, No JVD, Negative Carotid Bruits, Trachea Midline, Thyroid Normal. Lungs: Clear to auscultation, Normal air movement, No rhonchi, No wheeze, No rales. Cardiovascular: Regular rate, Regular Rhythm, Normal S1, Normal S2, PMI Normal. Abdomen: Bowel Sounds Present, Soft, Non Tender, Non-Distended, No Hepato- splenomegaly. Extremities: No clubbing, No cyanosis, No edema Skin: No rashes, No breakdown Neurological: Cranial nerves are intact, neuro grossly intact. Assessment and plan: #1 acute intractable low back pain/left lumbar radiculopathy: Due to L5-S1 left disc extrusion with severe lateral recess and from the stenosis. She is on IV Dilaudid, OxyIR as needed for pain. Patient mentioned that there is no improvement of her pain, still having significant pain. MRI lumbar spine reviewed. She is on gabapentin as well. Appreciate Dr. Ochoa recommendations. Patient was started on IV Decadron today. Patient will need to go for surgery with lumbar laminectomy/discectomy according to Dr. Pal. Plan for pain control for now, we will try to discharge patient when her pain improves and return for surgery next week. #2 elevated blood pressure: Without history of hypertension, likely because of intractable pain. She is on IV hydralazine as needed. She is on lisinopril. #3 other chronic medical problems: Stable, continue current medications as above. This note was generated with [employer] software. It may contain incorrect words, spelling, and punctuation that were not noted in checking the note before signing. Inpatient E&M: 96503 Subs Hosp L2
--- NOTE | 2020-06-08 13:57 | NURSING ---
Page out to Dr. Ochoa regarding family wanting to talk to him.
--- NOTE | 2020-06-08 14:20 | NURSING ---
Dr. Ochoa aware that daughter is requesting to speak to him, her cell number provided to Dr. Ochoa.
--- NOTE | 2020-06-08 14:23 | MRI_ITS ---
STUDY: MRI LUMBAR SPINE WITHOUT CONTRAST REASON FOR EXAM: Female, 74 years old. pain -- herniated disc, axial cuts thru entire sequestered fragment TECHNIQUE: Standardized fat and water weighted pulse sequences were obtained in the sagittal and axial planes. COMPARISON: MRI of the lumbar spine on 06/07/2020 FINDINGS: . L4-5: Normal endplates. Normal disc height, hydration and minor annular bulge. Moderate facet arthropathy and thickening of ligamenta flava.. Normal central canal and bilateral lateral recesses. Mild bilateral neuroforaminal encroachment L5-S1: Grade 1 spondylolisthesis. Disc space narrowing with bulging disc osteophyte complex and large left posterolateral/foraminal disc extrusion with superior migration of disc fragment. Severe facet arthropathy and thickening of ligamenta flava. Mild central canal stenosis. Mild right lateral recess and moderate right neuroforaminal stenosis. Severe left lateral recess, supra articular and neuroforaminal stenosis Normal visualized sacral ala. Normal visualized paraspinous soft tissue structures. MRI/Spine Lumbar (Routine) IMPRESSION: Spinal stenosis at L4-5 and L5-S1 greater on the left due to disc disease and bony hypertrophy with thickening of ligamenta flava Electronically Signed: Mike Chaudhary MD at 16:13 EST , Service support ,
[2020-06-08 14:47] VITALS: BP 134/64; PULSE 95; RESP 18; TEMP 36.7; O2SAT 96
[2020-06-08] MEDS: diazePAM 2 MG Tablet PO (15:20)
[2020-06-08 20:30] VITALS: BP 129/74; PULSE 91; RESP 18; TEMP 36.8; O2SAT 97
[2020-06-09 02:53] VITALS: BP 127/71; PULSE 74; RESP 16; TEMP 36.6; O2SAT 97
[2020-06-09] MEDS: dexAMETHasone 4 MG/ML Vial 2 MG IV ×3 (05:44→19:54)
[2020-06-09] MEDS: Psyllium 1 PACKET PO (08:24)
[2020-06-09] MEDS: Leflunomide 10 MG TABLET PO (08:24)
[2020-06-09] MEDS: Gabapentin 300 MG Capsule PO ×3 (08:25→18:10)
[2020-06-09] MEDS: Pantoprazole Sodium 40 MG Tablet PO (08:25)
[2020-06-09] MEDS: Senna/Docusate Sodium 1 Tablet 2 TABLET PO (08:25)
[2020-06-09] MEDS: Lisinopril 10 MG Tablet PO (08:25)
[2020-06-09 08:30] VITALS: BP 129/64; PULSE 81; RESP 18; TEMP 36.8; O2SAT 95
--- NOTE | 2020-06-09 10:18 | PCM.DC ---
- Discharge Diagnoses Current Active Problems: Current Active and Chronic Problems Left lumbar radiculopathy (Acute) Arthritis (Chronic) You will use the following diet at home:: No restrictions Discharge Activity: Return to Normal Activity Call your doctor if you observe: Numbness or Tingling, Uncontrolled pain Allergies/Adverse Reactions: Allergies codeine Allergy (Verified 06/06/20 09:51) Vomiting Medications to take at Discharge Cholecalciferol (Vitamin D3) [Vitamin D3] 1,000 unit PO DAILY 08/18/13 Lansoprazole [Prevacid] 30 mg PO DAILY 08/18/13 Gabapentin 300 mg PO TID 30 Days #89 cap 06/04/20 Leflunomide [Arava] 10 mg PO DAILY 06/06/20 Acetaminophen [Tylenol Extra Strength] 1,000 mg PO Q8H PRN PRN #30 tab 06/09/20 Lisinopril [Zestril] 10 mg PO DAILY #30 tab 06/09/20 Oxycodone [Oxyir] 5 - 10 mg PO Q6H PRN PRN 3 Days #20 tab 06/09/20 Polyethylene Glycol 3350 [Miralax] 17 gm PO DAILY #30 packet 06/09/20 Prednisone 40 mg PO DAILY #10 tab 06/09/20 cycloBENZAPRine HCl [Flexeril] 10 mg PO TID PRN PRN #20 tab 06/09/20 The following prescriptions were given: cycloBENZAPRine HCl [Flexeril] 10 mg PO TID PRN PRN #20 tab PRN Reason: muscle pain Transmission Status: Received by [facility] Polyethylene Glycol 3350 [Miralax] 17 gm PO DAILY #30 packet Transmission Status: Received by [facility] Oxycodone [Oxyir] 5 - 10 mg PO Q6H PRN PRN 3 Days #20 tab PRN Reason: Pain Score 6-10 Transmission Status: Received by [facility] Prednisone 40 mg PO DAILY #10 tab Transmission Status: Received by [facility] Acetaminophen [Tylenol Extra Strength] 1,000 mg PO Q8H PRN PRN #30 tab PRN Reason: Pain Score 1-10 Transmission Status: Received by [facility] Lisinopril [Zestril] 10 mg PO DAILY #30 tab Transmission Status: Received by [facility] Primary Care Physician: Ricardo Reynolds DO [Primary Care Provider] - Please follow up with your Primary Care Physician in: 1 Week Test Results: Test results from this visit will be discussed in further detail at your follow-up appointment, if applicable. Please Follow Up With: Gregorio Ochoa MD When: 06/17/20 as planned Proposed Discharge Date: 06/09/20
--- NOTE | 2020-06-09 11:41 | PCM.DC.SUM ---
<Kelly Krishnamurthy INSURANCE COMPLIANCE ANALYST - Last Filed: 06/09/20 11:47> Discharge Date and Diagnosis - Problem List Patient Problems: Active and Suspected Problems Left lumbar radiculopathy (Acute) Date of Admission: 06/06/20 Date of Discharge: 06/09/20 - Primary Discharge Diagnosis Acute Problems: Active Problems 1. Left lumbar radiculopathy, left disc extrusion 2. Unspecified arthritis 3. Elevated blood pressure without history of hypertension - Secondary Discharge Diagnosis Chronic Problems: Chronic Problems Arthritis (Chronic) Hospital Course and Treatment Imaging Results: Diagnostic Data Lumbar Spine MRI 06/08/20 14:23 IMPRESSION: Spinal stenosis at L4-5 and L5-S1 greater on the left due to disc disease and bony hypertrophy with thickening of ligamenta flava Electronically Signed: Mike Chaudhary MD at 16:13 EST , Service support , Dr. Ochoa- Spine surgery Operations: None Procedures: None Summary of Care Provided: The patient is a 74 year old F admitted 06/06/2020 due to left back and leg pain. 1. Left lumbar radiculopathy, left disc extrusion-recent lumbar x-ray shows degenerative changes of the spine. MRI of lumbar spine shows new left disc extrusion with severe left lateral recess and foraminal stenosis. Dr. Ochoa, spine surgery consulted. Plan for lumbar laminectomy discectomy on the left 06/17/2020. Continue steroid burst, prednisone 40 mg daily for 5 days at discharge. Scheduled gabapentin. As needed Tylenol, oxycodone, Flexeril for pain. Pain controlled at discharge and patient doing well with therapy. Return for outpatient surgery as previously noted. 2. Unspecified arthritis-patient takes leflunomide and as needed prednisone. Follows with rheumatology, Dr. Randle. She denies rheumatoid arthritis diagnosis. States she is being treated for osteoarthritis. Follows with pain management as well for chronic pain related to arthritis. 3. Elevated blood pressure without history of hypertension-suspect secondary to acute pain. Blood pressure controlled at this time, improved with pain management and addition of lisinopril 10 mg daily which patient will continue at discharge. General: Alert, Oriented x3, Cooperative HEENT: Atraumatic, PERRLA, EOMI, Normocephalic Neck: Supple, No JVD, Negative Carotid Bruits Lungs: Clear to auscultation, Normal air movement Cardiovascular: Regular rate, No murmurs Abdomen: Bowel Sounds Present, Soft, Non Tender Extremities: No clubbing, No cyanosis, No edema, Capillary Refill Less than 3 Seconds Skin: No rashes, No breakdown Musculoskeletal: No Tenderness to Palpation of Joints or Extremities Neurological: Cranial nerves II-XII grossly intact, Neuro grossly intact Psych/Mental Status: Normal Affect, Appropriate Patient seen and examined prior to discharge. Physical assessment as noted above. Patient is stable for discharge with follow up recommendations as noted above. This patient was seen by LAUREN Baum under the supervision of Dr. Mitchell. Patient Problems: Active and Suspected Problems Left lumbar radiculopathy (Acute) - Physical Exam Vitals/I&O's: Vital Signs Temp Pulse Resp BP Pulse Ox 98.2 F 81 18 129/64 H 95 06/09/20 08:30 06/09/20 08:30 06/09/20 08:30 06/09/20 08:30 06/09/20 08:30 Oxygen Delivery Method Room Air Weight: 161 lb 2.526 oz Body Mass Index (BMI) 29.5 Intake and Output for Last 24 Hours 06/07/20 06/08/20 06/09/20 23:59 23:59 23:59 Intake Total 2200 / 2200 1400 / 1400 0 / 0 Output Total 1500 / 1500 Balance 700 / 700 1400 / 1400 0 / 0 Current Medications Acetaminophen (Acetaminophen 325 Mg Tablet) 650 mg PO Q6H PRN PRN PRN Reason: Pain Score 1-10/Temp > 100.7 F Last Admin: 06/07/20 04:03 Dose: 650 mg Documented by: Cyclobenzaprine HCl (Cyclobenzaprine Hcl 10 Mg Tablet) 10 mg PO TID PRN PRN PRN Reason: muscle pain Last Admin: 06/08/20 20:41 Dose: 10 mg Documented by: Dexamethasone Sodium Phosphate (Dexamethasone 4 Mg/Ml Vial) 2 mg IV Q8 [facility]; Taper Stop: 06/10/20 00:29 Last Admin: 06/09/20 05:44 Dose: 4 mg Documented by: Enoxaparin Sodium (Enoxaparin 40 Mg/0.4 Ml Syringe) 40 mg SC DAILY [facility] Last Admin: 06/08/20 09:17 Dose: 40 mg Documented by: Gabapentin (Gabapentin 300 Mg Capsule) 300 mg PO TIDCM [facility] Last Admin: 06/09/20 08:25 Dose: 300 mg Documented by: Hydralazine HCl (Hydralazine 20 Mg/Ml Vial) 10 mg IV Q6H PRN PRN PRN Reason: SBP>180 mmhg Last Admin: 06/07/20 04:03 Dose: 10 mg Documented by: Hydromorphone HCl (Hydromorphone 0.5 Mg/0.5 Ml Syringe) 0.5 mg IV Q4H PRN PRN PRN Reason: Pain Score 6-10 Last Admin: 06/08/20 07:36 Dose: 0.5 mg Documented by: Sodium Chloride () 250 mls @ 15 mls/hr IV .[id number] PRN PRN Reason: Saline Flush Leflunomide (Leflunomide 10 Mg Tablet) 10 mg PO DAILY [facility] Last Admin: 06/09/20 08:24 Dose: 10 mg Documented by: Lisinopril (Lisinopril 10 Mg Tablet) 10 mg PO DAILY [facility] Last Admin: 06/09/20 08:25 Dose: 10 mg Documented by: Nitroglycerin (Nitroglycerin (Inpatient Use) 0.4 Mg Tab.Subl) 0.4 mg SUBLINGUAL Q5M PRN PRN Reason: CARDIAC/CHEST PAIN Nutritional Formula (Lactose Free) (Ensure Enlive 120 Ml Liquid) 120 ml PO 4X/DAY [facility] Last Admin: 06/09/20 08:28 Dose: 120 ml Documented by: Ondansetron HCl (Ondansetron 4 Mg/2 Ml Vial) 4 mg IV Q8H PRN PRN PRN Reason: NAUSEA/VOMITING Oxycodone HCl (Oxycodone 5 Mg Tablet) 5 mg PO Q4H PRN PRN PRN Reason: Pain Score 4-5 Last Admin: 06/08/20 04:56 Dose: 5 mg Documented by: Pantoprazole Sodium (Pantoprazole Sodium 40 Mg Tablet) 40 mg PO DAILY [facility] Last Admin: 06/09/20 08:25 Dose: 40 mg Documented by: Polyethylene Glycol (Polyethylene Glycol 3350 17 Gm Packet) 17 gm PO X1 ONE Stop: 06/09/20 11:41 Prochlorperazine Edisylate (Prochlorperazine 10 Mg/2 Ml Vial) 5 mg IV Q4H PRN PRN PRN Reason: Breakthrough nausea/vomiting Psyllium Hydrophilic Mucilloid (Psyllium 1 Packet) 1 packet PO DAILY [facility] Last Admin: 06/09/20 08:24 Dose: 1 packet Documented by: Senna/Docusate Sodium (Senna/Docusate Sodium 1 Tablet) 2 tablet PO BID [facility] Last Admin: 06/09/20 08:25 Dose: 2 tablet Documented by: Sodium Chloride (0.9% Saline Lock 10 Ml Syringe) 10 - 40 ml IV UD PRN PRN Reason: SALINE FLUSH Last Admin: 06/08/20 21:52 Dose: 20 ml Documented by: Discharge Diet: No Restrictions Discharge Activity: Return to Normal Activity Call your doctor if you observe: Numbness or Tingling, Uncontrolled pain Home Medications: Medications to take at Discharge Cholecalciferol (Vitamin D3) [Vitamin D3] 1,000 unit PO DAILY 08/18/13 Lansoprazole [Prevacid] 30 mg PO DAILY 08/18/13 Gabapentin 300 mg PO TID 30 Days #89 cap 06/04/20 Leflunomide [Arava] 10 mg PO DAILY 06/06/20 Acetaminophen [Tylenol Extra Strength] 1,000 mg PO Q8H PRN PRN #30 tab 06/09/20 Lisinopril [Zestril] 10 mg PO DAILY #30 tab 06/09/20 Oxycodone [Oxyir] 5 - 10 mg PO Q6H PRN PRN 3 Days #20 tab 06/09/20 Polyethylene Glycol 3350 [Miralax] 17 gm PO DAILY #30 packet 06/09/20 Prednisone 40 mg PO DAILY #10 tab 06/09/20 cycloBENZAPRine HCl [Flexeril] 10 mg PO TID PRN PRN #20 tab 06/09/20 Following Prescriptions Were Given to Patient: cycloBENZAPRine HCl [Flexeril] 10 mg PO TID PRN PRN #20 tab PRN Reason: muscle pain Transmission Status: Received by [facility] Polyethylene Glycol 3350 [Miralax] 17 gm PO DAILY #30 packet Transmission Status: Received by [facility] Oxycodone [Oxyir] 5 - 10 mg PO Q6H PRN PRN 3 Days #20 tab PRN Reason: Pain Score 6-10 Transmission Status: Received by [facility] Prednisone 40 mg PO DAILY #10 tab Transmission Status: Received by [facility] Acetaminophen [Tylenol Extra Strength] 1,000 mg PO Q8H PRN PRN #30 tab PRN Reason: Pain Score 1-10 Transmission Status: Received by [facility] Lisinopril [Zestril] 10 mg PO DAILY #30 tab Transmission Status: Received by [facility] Primary Care Physician: Ricardo Reynolds DO [Primary Care Provider] - Please follow up with your Primary Care Physician in: 1 Week Please Follow Up With: Gregorio Ochoa MD When: 06/17/20 as planned Disposition: Home Minutes spent on discharge:: 35 Patient Condition:: Stable Medical Necessity - Tobacco Use Smoking Status: Never smoker Meaningful Use Info Meaningful Use Diagnoses (Choose all that apply): None applicable <Prachi Mitchell E - Last Filed: 06/09/20 12:03> Discharge Date and Diagnosis - Primary Discharge Diagnosis Acute Problems: Active Problems Left lumbar radiculopathy (Acute) - Secondary Discharge Diagnosis Chronic Problems: Chronic Problems Arthritis (Chronic) Hospital Course and Treatment Summary of Care Provided: Hospitalist note: Discharge summary above reviewed and I concur with above discharge treatment plan. Patient was admitted for acute lower back pain and she was found to have left lumbar radiculopathy. Initially, she had MRI lumbar spine that showed L5-S1 new left disc extrusion with severe lateral recess and spinal stenosis. Patient was started on IV Dilaudid for pain OxyIR as needed as well as Tylenol. She continued to have significant intractable pain in spite of of aggressive pain management. She did have pain along the left lower extremity especially on her left calf. Venous Doppler of the left lower extremity done and showed no acute DVT. Patient did have some weakness of the left lower extremity due to pain. Because of persistence of the pain, Dr. Ochoa who is the spine surgeon consulted and he requested to repeat the MRI. Repeat MRI lumbar spine done and showed spinal stenosis at L4-L5 and L5-S1 greater on the left side due to disc disease and bony hypertrophy with thickening of the ligamenta flava. Dr. Ochoa recommended to start IV Decadron along with the IV Dilaudid and OxyIR. During this hospital stay, her blood pressure was elevated due to intractable pain. After she was started on IV steroids, her pain started to improve and on the day of discharge, she was able to ambulate. Patient discharged home in a stable medical condition, discharged on prednisone 5 mg p.o. daily for 5 days, discharged on gabapentin, oxycodone as needed for pain as well as Flexeril as needed for muscle pain and spasm, plan to follow-up with Dr. Ochoa, the spine surgeon, next week and patient will need to go for surgery. Recommended follow-up with PCP in 1 week. - Physical Exam General: Alert, Oriented x3, Cooperative, No apparent distress. HEENT: Atraumatic, PERRLA, EOMI. Neck: Supple, No JVD, Negative Carotid Bruits, Trachea Midline, Thyroid Normal. Lungs: Clear to auscultation, Normal air movement, No rhonchi, No wheeze, No rales. Cardiovascular: Regular rate, Regular Rhythm, Normal S1, Normal S2, PMI Normal. Abdomen: Bowel Sounds Present, Soft, Non Tender, Non-Distended, No Hepato-splenomegaly. Extremities: No clubbing, No cyanosis, No edema Skin: No rashes, No breakdown Neurological: Cranial nerves are intact, neuro grossly intact Vital Signs are stable. This note was generated with [employer] dictation software. It may contain incorrect words, spelling, and punctuation that were not noted in checking the note before signing. - Physical Exam Vitals/I&O's: Vital Signs Temp Pulse Resp BP Pulse Ox 98.2 F 81 18 129/64 H 95 06/09/20 08:30 06/09/20 08:30 06/09/20 08:30 06/09/20 08:30 06/09/20 08:30 Oxygen Delivery Method Room Air Weight: 161 lb 2.526 oz Body Mass Index (BMI) 29.5 Intake and Output for Last 24 Hours 06/07/20 06/08/20 06/09/20 23:59 23:59 23:59 Intake Total 2200 / 2200 1400 / 1400 0 / 0 Output Total 1500 / 1500 Balance 700 / 700 1400 / 1400 0 / 0 Current Medications Acetaminophen (Acetaminophen 325 Mg Tablet) 650 mg PO Q6H PRN PRN PRN Reason: Pain Score 1-10/Temp > 100.7 F Last Admin: 06/07/20 04:03 Dose: 650 mg Documented by: Cyclobenzaprine HCl (Cyclobenzaprine Hcl 10 Mg Tablet) 10 mg PO TID PRN PRN PRN Reason: muscle pain Last Admin: 06/08/20 20:41 Dose: 10 mg Documented by: Dexamethasone Sodium Phosphate (Dexamethasone 4 Mg/Ml Vial) 2 mg IV Q8 [facility]; Taper Stop: 06/10/20 00:29 Last Admin: 06/09/20 05:44 Dose: 4 mg Documented by: Enoxaparin Sodium (Enoxaparin 40 Mg/0.4 Ml Syringe) 40 mg SC DAILY [facility] Last Admin: 06/08/20 09:17 Dose: 40 mg Documented by: Gabapentin (Gabapentin 300 Mg Capsule) 300 mg PO TIDCM [facility] Last Admin: 06/09/20 08:25 Dose: 300 mg Documented by: Hydralazine HCl (Hydralazine 20 Mg/Ml Vial) 10 mg IV Q6H PRN PRN PRN Reason: SBP>180 mmhg Last Admin: 06/07/20 04:03 Dose: 10 mg Documented by: Hydromorphone HCl (Hydromorphone 0.5 Mg/0.5 Ml Syringe) 0.5 mg IV Q4H PRN PRN PRN Reason: Pain Score 6-10 Last Admin: 06/08/20 07:36 Dose: 0.5 mg Documented by: Sodium Chloride () 250 mls @ 15 mls/hr IV .[id number] PRN PRN Reason: Saline Flush Leflunomide (Leflunomide 10 Mg Tablet) 10 mg PO DAILY [facility] Last Admin: 06/09/20 08:24 Dose: 10 mg Documented by: Lisinopril (Lisinopril 10 Mg Tablet) 10 mg PO DAILY [facility] Last Admin: 06/09/20 08:25 Dose: 10 mg Documented by: Nitroglycerin (Nitroglycerin (Inpatient Use) 0.4 Mg Tab.Subl) 0.4 mg SUBLINGUAL Q5M PRN PRN Reason: CARDIAC/CHEST PAIN Nutritional Formula (Lactose Free) (Ensure Enlive 120 Ml Liquid) 120 ml PO 4X/DAY [facility] Last Admin: 06/09/20 08:28 Dose: 120 ml Documented by: Ondansetron HCl (Ondansetron 4 Mg/2 Ml Vial) 4 mg IV Q8H PRN PRN PRN Reason: NAUSEA/VOMITING Oxycodone HCl (Oxycodone 5 Mg Tablet) 5 mg PO Q4H PRN PRN PRN Reason: Pain Score 4-5 Last Admin: 06/08/20 04:56 Dose: 5 mg Documented by: Pantoprazole Sodium (Pantoprazole Sodium 40 Mg Tablet) 40 mg PO DAILY [facility] Last Admin: 06/09/20 08:25 Dose: 40 mg Documented by: Prochlorperazine Edisylate (Prochlorperazine 10 Mg/2 Ml Vial) 5 mg IV Q4H PRN PRN PRN Reason: Breakthrough nausea/vomiting Psyllium Hydrophilic Mucilloid (Psyllium 1 Packet) 1 packet PO DAILY [facility] Last Admin: 06/09/20 08:24 Dose: 1 packet Documented by: Senna/Docusate Sodium (Senna/Docusate Sodium 1 Tablet) 2 tablet PO BID [facility] Last Admin: 06/09/20 08:25 Dose: 2 tablet Documented by: Sodium Chloride (0.9% Saline Lock 10 Ml Syringe) 10 - 40 ml IV UD PRN PRN Reason: SALINE FLUSH Last Admin: 06/08/20 21:52 Dose: 20 ml Documented by: Disposition: Home Minutes spent on discharge:: 32 Patient Condition:: Stable Meaningful Use Info Meaningful Use Diagnoses (Choose all that apply): None applicable Inpatient E&M: 78062 [facility]
--- NOTE | 2020-06-09 12:08 | PHA.DC.MC ---
Pharmacy Service has performed discharge medication reconciliation and counseling for this patient. 1. ACETAMINOPHEN 1000MG PO Q8H PRN PAIN 1-10 2. CYCLOBENZAPRINE 10MG PO TID PRN MUSCLE PAIN 3. LISINOPRIL 10MG PO DAILY 4. OXYCODONE 5-10MG PO Q6H PRN PAIN 6-10 5. PREDNISONE 40MG PO DAILY X 5 DAYS The patient's discharge medication list was reviewed for discrepancies and discrepancies were resolved. Patient would like medications brought to her room. This [facility] called retail pharmacy to let them know to do meds to beds. Home Medications Cholecalciferol (Vitamin D3) [Vitamin D3] 1,000 unit PO DAILY 08/18/13 Lansoprazole [Prevacid] 30 mg PO DAILY 08/18/13 Gabapentin 300 mg PO TID 30 Days #89 cap 06/04/20 Leflunomide [Arava] 10 mg PO DAILY 06/06/20 Acetaminophen [Tylenol Extra Strength] 1,000 mg PO Q8H PRN PRN #30 tab 06/09/20 Lisinopril [Zestril] 10 mg PO DAILY #30 tab 06/09/20 Oxycodone [Oxyir] 5 - 10 mg PO Q6H PRN PRN 3 Days #20 tab 06/09/20 Polyethylene Glycol 3350 [Miralax] 17 gm PO DAILY #30 packet 06/09/20 Prednisone 40 mg PO DAILY #10 tab 06/09/20 cycloBENZAPRine HCl [Flexeril] 10 mg PO TID PRN PRN #20 tab 06/09/20 The patient was counseled on the following discharge medications and changes in medications for homegoing were reviewed. The Reason for Use, instructions for use, and potential side effects were reviewed for all new medications. The patient's questions regarding all of their medications were answered. The patient was able to verbally demonstrate an understanding of their discharge medications.
[2020-06-09] MEDS: Polyethylene Glycol 3350 17 GM PACKET PO (12:19)
[2020-06-09] MEDS: 0.9% Saline Lock 10 ML Syringe IV ×2 (13:58→19:55)
--- NOTE | 2020-06-09 14:03 | PCM.PN.BLA ---
Progress Note Mrs. Mullins is seen on rounds. Her daughter Sharifa is with her and we discussed her surgery that is scheduled for 8 days from now. The MRI demonstrates that she has a large herniation at L5-S1 that has moved upward on the left side consistent with her severe L5 and S1 radiculopathy. She has EHL weakness that is profound on the left does have some reasonable anterior tibialis strength. Her peroneal strength is good. I answered all the questions I will visit with her on Sunday at my office prior to her surgery that is scheduled for a week from tomorrow. Once she receives her last dose of IV Decadron she can be released to go home. That will be up to her primary care nurse practitioner.
[2020-06-09 14:12] VITALS: BP 138/81; PULSE 80; RESP 18; TEMP 36.7; O2SAT 97
[2020-06-09 20:00] VITALS: BP 141/89; PULSE 90; RESP 16; TEMP 36.5; O2SAT 95
--- NOTE | 2020-06-10 16:05 | CASEMGMT ---
RN CM Note DC DATE: 06/09/20 DC Disposition: Home DC Diagnosis: Left lumbar radiculopathy, left disc extrusion Intro role of CM to patient via phone. Pt states she is doing well and does not have questions re: medications or follow up. Patient states she is seeing her physician on Sunday. No care improvement suggestions were given. Jami BOJORQUEZ RN ACM
== END 2020-06-09 20:05 | disposition home or self-care (01) | DRG 552 ==
LOC: ED 13:09 → MS3 13:54
PROVIDERS: Admitting Provider Internal Medicine; Emergency Provider Emergency Medicine; PCP Family Medicine; Visit Provider Hospitalist
DX: M51.17 Intervertebral disc disorders with radiculopathy, lumbosacral region (principal); M48.07 Spinal stenosis, lumbosacral region; R03.0 Elevated blood-pressure reading, without diagnosis of hypertension; M16.10 Unilateral primary osteoarthritis, unspecified hip; M19.09 Primary osteoarthritis, other specified site; Z66 Do not resuscitate; G89.29 Other chronic pain; Z79.899 Other long term (current) drug therapy; Z79.891 Long term (current) use of opiate analgesic
CPT/HCPCS: 72100; 72148; 80053; 85025; 85379; 93971; 96374; 96375; 96376; 97110; 97161; 97166; 97530; 97802; 99284; 99285; J7120; A4216; J2405

== ENCOUNTER 2020-06-10 14:21 | Outpatient (RCR) | payer MEDICARE, BC, SELFPAY ==
[2020-06-10] MEDS: COVID-19 VACC, MRNA(PFIZER)/PF 30 MCG/0.3 ML SYRINGE IM (14:50)
[2020-07-01] MEDS: COVID-19 VACC, MRNA(PFIZER)/PF 30 MCG/0.3 ML SYRINGE IM (14:22)
== END 2020-06-10 23:59 ==
LOC: IMMUN 14:21
PROVIDERS: PCP Family Medicine; Visit Provider Family Medicine
DX: Z23 Encounter for immunization (principal)
CPT/HCPCS: 0001A; 0002A; 91300

== ENCOUNTER 2020-06-17 15:00 | Observation (INO) | payer MEDICARE, BC, SELFPAY ==
--- NOTE | 2020-06-14 09:22 | EKG12_ITS ---
Test Reason : PREOP Blood Pressure : / mmHG Vent. Rate : 101 BPM Atrial Rate : 101 BPM P-R Int : 124 ms QRS Dur : 068 ms QT Int : 328 ms P-R-T Axes : 066 032 082 degrees QTc Int : 425 ms Sinus tachycardia Otherwise normal ECG Confirmed by THERON MENDOZA, KARI ([id number]), scientific editor MERYL GOEL ([id number]) on 06/15/2020 12:25:19 PM Referred By: Julio Ochoa Confirmed By:KARI CRUMP MD
[2020-06-14 11:34] LABS: Magnesium 2.2 mg/dL (1.6-2.6)
[2020-06-14 12:04] LABS: HIV - WCH Non-Reactive (Nonreactive)
[2020-06-15 05:07] LABS: HEPATITIS B SURFACE AG Negative (Negative); Hepatitis A IgM Antibody Negative (Negative); Hepatitis B Core AB IgM Negative (Negative); Hepatitis B Core Ab Total Negative (Negative); Hepatitis C Ab <0.1 s/co ratio (0.0-0.9)
[2020-06-15 15:12] LABS: Hep B Surface Antibodies Non Reactive (.)
[2020-06-15 15:14] LABS: Hepatitis A AB, Total Positive (Negative)
[2020-06-17] VITALS (13 sets, daily range): BP systolic 147–173; BP diastolic 69–108; PULSE 58–93; RESP 12–18; TEMP 35.7–37.1; O2SAT 94–100; BMI 29.7; BMI 29.9
--- NOTE | 2020-06-17 03:36 | HP_ITS ---
Intake Intake Visit Reasons: Lumbar spine Chief Complaint: radiculopathy, lt leg pain Accompanied by: Is patient in pain?: Yes Pain scale (1-10): 7 Allergies codeine Allergy (Verified 06/10/20 13:05) Vomiting Medications Cholecalciferol (Vitamin D3) [Vitamin D3] 1,000 unit PO DAILY 08/18/13 [History Confirmed 06/14/20] Gabapentin 300 mg PO TID 30 Days #89 cap 06/04/20 [Rx Confirmed 06/14/20] Leflunomide [Arava] 10 mg PO DAILY 06/06/20 [History Confirmed 06/14/20] Acetaminophen [Tylenol Extra Strength] 1,000 mg PO Q8H PRN PRN #30 tab 06/09/20 [Rx Confirmed 06/14/20] Lisinopril [Zestril] 10 mg PO DAILY #30 tab 06/09/20 [Rx Confirmed 06/14/20] Polyethylene Glycol 3350 [Miralax] 17 gm PO DAILY #30 packet 06/09/20 [Rx Confirmed 06/14/20] Prednisone 40 mg PO DAILY #10 tab 06/09/20 [Rx Confirmed 06/10/20] cycloBENZAPRine HCl [Flexeril] 10 mg PO TID PRN PRN #20 tab 06/09/20 [Rx Confirmed 06/14/20] PFSH Social History (Updated 06/14/20 @ 13:[address] Julio Ochoa, ) Smoking Status: Never smoker HPI Lumbar spine: Details: Parts of this documentation were recorded by a scribe, this documentation accurately reflects the service provided and the decisions made by me, Dr. Julio Ochoa DO 06/14/20 1138. HILDA MULILNS is a 74 year old F NEW patient here today for left sided low back pain that raidtes down the left leg. She states that she has been seeing pain managment for injections for about 2 years. She has been having left side low back pain for 2 weeks. Denies any injury. She is here today to schedule surgery. Hilda Mullins comes to my office for the first time. I did a consult in the hospital on her. She had been admitted for severe pain in the left side of her back and her left leg and buttocks. The pain was severe enough that she had to get put in the hospital. An MRI scan had been ordered. I examined her in the hospital recently and she had weakness of the peroneals on the left and weakness of the anterior tibialis on the left and weakness of her EHL on the left. Today's examination was the same with the same weakness. The MRI demonstrated that she has a very large herniation at L5-S1 that went up about two th[address] the way up the back of the vertebral body of L5 on the left side. This is consistent with both her obvious S1 radiculopathy and L5 radiculopathy. In other words the disc went up high enough to affect the L5 nerve root also. Luckily she still does not have any urological symptoms. I will I went over the MRI scan again just to refresh my memory and its as I recall. She is scheduled for surgery in 3 days. I will do a laminectomy at L5-S1 on the left side and I will have to go quite high up in the laminectomy or all the way probably to the top of the lamina to get all the free fragment. I answered all her questions and those of her daughters and her 's. He spoke of possible risks and complications associated with the surgery including possibly of coma paralysis infection meningitis failure to relieve the symptoms blood clot in the legs blood clot lungs microinfarction stroke dural leak among others. I answered all other questions I will see her again at surgery on . Assessment & Plan Problems 1. HNP (herniated nucleus pulposus), lumbar M51.26 Coding Level of Care Code Off vis,new,level 3 Diagnoses HNP (herniated nucleus pulposus), lumbar M51.26 Time Spent (min) 30
[2020-06-17] MEDS: Acetaminophen 500 MG Tablet 1000 MG PO (10:09)
[2020-06-17] MEDS: Lactated Ringers 1,000 ML 100 ML IV ×2 (10:10→15:59)
[2020-06-17 11:01] LABS: Bedside Glucose 96 mg/dL (70-110)
--- NOTE | 2020-06-17 11:25 | RAD_ITS ---
STUDY: X-RAY - LUMBAR SPINE REASON FOR EXAM: Female, 74 years old. Laminectomy. Intraoperative documentation image. TECHNIQUE: A single lateral view(s) of the lumbar spine were obtained. COMPARISON: 06/04/2020 FINDINGS: Single lateral view shows surgical instruments at the L5-S1 interspace. RAD/Spine 1 View Any Level IMPRESSION: Intraoperative documentation image as described. Electronically Signed: Alexey Hernandez MD at 13:07 EST , Service support ,
[2020-06-17] MEDS: Cefazolin 2 GM in 0.9% Normal Saline 100 ML IV (11:45)
--- NOTE | 2020-06-17 13:44 | OP.PCM_ITS ---
Report of Operation Date of Procedure: 06/17/20 Description of Surgical Findings:: Preoperative diagnosis: Large herniated disc L5-S1 on the left with severe left L5 and S1 radiculopathy intractable pain and neurological deficit Postoperative diagnoses: The same Procedure: Lumbar laminectomy discectomy L5-S1 on the left Surgeon: Dr. Ochoa elementary assistant teacher: Parminder CLAYTON Anesthesia: General endotracheal anesthesia administered by [facility] Estimated blood loss: 25 cc Drains: Medium Hemovac Complications: None Procedure: Patient was taken to the OR where she was placed under general endotracheal anesthesia. A Preciado catheter was inserted. Neuro monitoring placed his leads in the appropriate places. She was then placed on the prone position on the Vinnie frame. Care was taken to protect her bony prominences her breasts her facial features her cervical spine or ulnar nerves at both elbows her brachial plexus. The back was then prepped and draped in standard fashion. I then made a longitudinal incision centered over L4-5 and L5-S1 subcutaneous tissues were incised the length of the skin incision. I elevated the I opened the lumbar fascia to the left of the spinous processes the paravertebral muscles off the lamina that was there an intraoperative x-ray was taken with a marker in place demonstrated that we were aimed at 4 5 so we simply extended the incision about three fourths of an inch and moved down 1 level. Elevated paravertebral muscles off the lamina of L5 and the top of the lamina of S1 Jasmina retractor was then put in place on the left side. I then elevated the ligament ligamentum flavum off the underside of the lamina of L4-5 on the left side and I released the ligamentum flavum with curettes. I then performed a laminectomy with 45 degree Kerrison rongeurs. Note that I did remove the ligamentum flavum entirely with a 45 degree Kerrison rongeurs. This gave us good access to the both the base of the L5 nerve root and the S1 nerve root I retracted the midline structures to the the right exposing the large herniated disc note that we removed several very large fragments there were fragments under the base of the L5 nerve root to what hence her symptoms of L5 and they started at the disc level itself at L5-S1. Are all removed this completely decompressed the L5 nerve and the S1 nerve. Irrigation was carried out. We had good hemostasis with thrombin-soaked Gelfoam. I then placed a amnionic graft directly on the dura and base of the nerve root of the L5 and S1. Gelfoam was placed over that and a medium Hemovac drain was inserted. We then closed the lumbar fascia using [id number] suture with #1 Vicryl. This was followed by closure of the subcutaneous tissues in layers with 2-0 Vicryl in interrupted fashion. And the skin was approximated using skin clips sterile dressings were then applied note that I did sew the drain in place. Was then recovered in the OR she was moved to her hospital bed and taken to recovery in satisfactory condition this interoperative summary on Hilda Ochoa dictating.
[2020-06-17] MEDS: Cefazolin 1 GM/50 ML BAG IV (20:41)
--- NOTE | 2020-06-17 21:04 | PCM.CONS.GEN ---
Problem List (1) Hypertension Status: Chronic (2) Left lumbar radiculopathy Status: Acute (3) Arthritis Status: Chronic Reason for Consult Date of Consultation: 06/17/20 Reason for Consultation: Medical management for hypertension History of Present Illness: The patient is a 74 year old F who was recently admitted on 06/06 for left back pain with radiation to toes suggestive of left L5-S1 radiculopathy. She further had MRI which shows large lumbar disc herniation L5-S1 that went up posteriorly on L5 left side causing L5 and S1 radiculopathy. She had weakness of the left leg and left foot mainly peroneus muscles. Today she had elective surgery of lumbar laminectomy, discectomy L5-S1 on left for large herniated disc of L5-S1 on the left with severe left L5 and S1 radiculopathy When I saw the patient, she started feeling better with her left leg and foot strength. She has left dorsal flexion, eversion/lateral rotation of left foot which was weak could not do it before. She did not have new symptoms regarding needed incontinence or bowel incontinence. [] She was recently found to have hypotension during previous admission. Blood pressure elevated 150/90-161/25. Twelve-lead EKG on 06/14/2020 shows sinus tachycardia at 101 bpm. She has a small drain after surgery. Past Medical History Past Medical History (Chronic Problems): Chronic Problems Arthritis (Chronic) Hypertension (Chronic) Allergies codeine Allergy (Verified 06/17/20 09:28) Vomiting Home Medications: Ambulatory Orders Medication Instructions Recorded Cholecalciferol (Vitamin D3) 1,000 unit PO DAILY 08/18/13 [Vitamin D3] Gabapentin 300 mg PO TID 30 Days #89 cap 06/04/20 Leflunomide [Arava] 10 mg PO DAILY 06/06/20 Acetaminophen [Tylenol Extra 1,000 mg PO Q8H PRN PRN #30 tab 06/09/20 Strength] Lisinopril [Zestril] 10 mg PO DAILY #30 tab 06/09/20 Polyethylene Glycol 3350 [Miralax] 17 gm PO DAILY #30 packet 06/09/20 Prednisone 40 mg PO DAILY #10 tab 06/09/20 cycloBENZAPRine HCl [Flexeril] 10 mg PO TID PRN PRN #20 tab 06/09/20 Surgical History: - - Right nephrectomy, left knee replacement, cholecystectomy, hysterectomy. Psychiatric History: No pertinent psych hx COMPENSATION AND BENEFITS ADVISOR History: No pertinent COMPENSATION AND BENEFITS ADVISOR history Smoking Status: Never smoker - *Family History Maternal History Items: - Paternal History Items: - Review of Systems Constitutional: Denies: Chills, Fever, Weight Change HEENT: Denies: Head Aches, Sinus Congestion, Sinus Drainage Cardiovascular: Denies: Chest Pain, Palpitations Respiratory: Denies: Cough, Shortness of breath at rest, Sputum production Gastrointestinal: Denies: Abdominal Pain, Nausea, Vomiting Genitourinary: Denies: Dysuria, Frequency, Hesitancy Musculoskeletal: Reports: Back Pain, Joint stiffness, Muscle pain. Denies: Joint Pain, Joint Tenderness Skin: Denies: Rash, Wounds Neurological: Reports: Balance problems, Incoordination. Denies: Focal weakness, Numbness, Tingling Psychiatric: Denies: Anxiety, Depression, Homicidal Ideations, Suicidal Ideations Hematologic/ Lymphatic: Denies: Easy Bruising, Easy Bleeding Objective: General: Alert, Oriented x3, Cooperative HEENT: Atraumatic, PERRLA, EOMI, Normocephalic Oral: No Gingival or Mucosal Lesions/ Ulcerations Neck: Supple, No JVD, Negative Carotid Bruits Lungs: Air entry diminished in bilateral lung bases. No crepitation/rhonchi Cardiovascular: Regular rate, Regular Rhythm, Normal S1, Normal S2, No murmurs Abdomen: Bowel Sounds Present, Soft, Non Tender, Non-Distended : No renal angle tenderness. No suprapubic tenderness. Extremities: No edema, Capillary Refill Less than 3 Seconds Skin: No rashes, No breakdown Musculoskeletal: Left foot dorsal flexion, lateral rotation, 4/5. Left knee extension and flexion 4+/5. Spine: Surgical dressing dry. Small drain is serosanguineous collection. Neurological: Cranial nerves II-XII grossly intact, Deep Tendon Reflexes 2+/4 and Symmetrical, Neuro grossly intact Psych/Mental Status: Normal Affect, Appropriate. - Physical Exam Vitals/I&O's: Vital Signs Temp Pulse Resp BP Pulse Ox 98.1 F 88 18 161/75 H 98 06/17/20 19:31 06/17/20 19:31 06/17/20 19:31 06/17/20 19:31 06/17/20 19:31 Oxygen Flow Rate (L/min) 6 Oxygen Delivery Method Room Air Weight: 162 lb 11.218 oz Body Mass Index (BMI) 29.9 Intake and Output for Last 24 Hours 06/15/20 06/16/20 06/17/20 23:59 23:59 23:59 Intake Total 1689.5 / 1689.5 Output Total 1700 / 1700 Balance -10.5 / -10.5 Microbiology Past 72 Hours 06/14/20 09:37 Interface Orders Nasal Screen MRSA/MSSA - Final Laboratory Results 06/17/20 09:45: POC Glucose 96 Current Medications Diazepam (Diazepam 5 Mg Tablet) 5 mg PO Q6H PRN PRN PRN Reason: Muscle Spasms Enteral Nutritional Formula (Ensure Surgery 237 Ml Liquid) 237 ml PO TIDCM [facility] Last Admin: 06/17/20 18:03 Dose: Not Given Documented by: Famotidine (Famotidine 20 Mg Tablet) 20 mg PO BID [facility] Lactated Ringer's () 1,000 mls @ 100 mls/hr IV .Q10H [facility] Last Infusion: 06/17/20 20:44 Dose: 0 mls/hr Documented by: Cefazolin Sodium () 1 gm in 50 mls @ 100 mls/hr IV Q8H [facility] Stop: 06/18/20 04:14 Last Admin: 06/17/20 20:41 Dose: 100 mls/hr Documented by: Sodium Chloride () 250 mls @ 15 mls/hr IV .[id number] PRN PRN Reason: Saline Flush Sodium Chloride () 250 mls @ 15 mls/hr IV .[id number] PRN PRN Reason: Additional IVPB Infusion Morphine Sulfate (Morphine 4 Mg/Ml Syringe) 2 - 4 mg IV Q2H PRN PRN PRN Reason: Pain Score 6-10 Ondansetron HCl (Ondansetron 4 Mg/2 Ml Vial) 4 mg IV Q8H PRN PRN PRN Reason: NAUSEA Senna/Docusate Sodium (Senna/Docusate Sodium 1 Tablet) 2 tablet PO BID [facility] Sodium Chloride (0.9% Nacl Peripheral Flush Adult/Peds) 5 - 15 ml IV UD PRN PRN Reason: SALINE FLUSH Sodium Chloride (0.9% Saline Lock 10 Ml Syringe) 10 - 40 ml IV UD PRN PRN Reason: SALINE FLUSH Tramadol HCl (Tramadol 50 Mg Tablet) 50 - 100 mg PO Q6H PRN PRN PRN Reason: Pain Score 4-5 Zolpidem Tartrate (Zolpidem Tartrate 5 Mg Tablet) 5 mg PO QHS PRN PRN PRN Reason: INSOMNIA Assessment/Plan All Active Problems Left lumbar radiculopathy (Acute) There is a 74-year-old female admitted for elective surgery for large left herniated disc 1. Left lumbar L5-S1 radiculopathy due to large left herniated disc status post left L5-S1 laminectomy and discectomy. Pain control. PT and OT. VT prophylaxis as per spine surgeon, Dr. Ochoa. Patient is on Valium, tramadol and IV cefazolin. MRI of lumbar spine shows new left disc extrusion with severe left lateral recess and foraminal stenosis. CBC and BMP ordered for tomorrow a.m. 2. Unspecified arthritis most probably osteoarthritis-patient takes leflunomide and as needed prednisone. Patient follows with guide setter, Dr. Randle. She denies diagnosis of rheumatoid arthritis. 3. Hypertension: Patient is on lisinopril continued. VT prophylaxis: Bilateral SCDs. Pharmacological prophylaxis as per discretion of Dr. Ochoa. Inpatient E&M: 13012 Init Hosp L2
[2020-06-17] MEDS: Senna/Docusate Sodium 1 Tablet 2 TABLET PO (21:29)
[2020-06-17] MEDS: Famotidine 20 MG Tablet PO (21:29)
[2020-06-17] MEDS: traMADol 50 MG Tablet PO (21:29)
[2020-06-17] MEDS: Morphine 4 MG/ML Syringe IV (22:51)
[2020-06-17] MEDS: Lisinopril 10 MG Tablet PO (22:54)
[2020-06-18] MEDS: Lactated Ringers 1,000 ML 100 ML IV (01:44)
[2020-06-18 03:07] VITALS: BP 146/81; PULSE 81; RESP 16; TEMP 36.4; O2SAT 97
[2020-06-18] MEDS: Morphine 4 MG/ML Syringe IV (03:08)
[2020-06-18] MEDS: Cefazolin 1 GM/50 ML BAG IV (03:08)
[2020-06-18] MEDS: Gabapentin 300 MG Capsule PO ×2 (05:47→14:53)
[2020-06-18 07:02] LABS: Absolute Lymphocyte Count 0.63 X10^3/uL (0.83-4.51); Absolute Neutrophil Count 13.3 X10^3/uL (2.0-7.7); Basophil# 0.03 X10^3/uL; Basophil% 0.2 % (0-1); Eosinophil# 0.03 X10^3/uL; Eosinophils% 0.2 % (0-5); Hematocrit 40.4 % (37-47); Hemoglobin 13.1 g/dL (12.0-15.0); Lymphocyte # 0.63 X10^3/ul (4.0); Lymphocyte % 4.2 % (19-41); Mean Corp Hgb Conc 32.4 g/dL (32-36); Mean Corpuscular Volume 92.7 fL (81-99); Mean Platelet Vol. 11.1 fl (6.2-12.0); Monocyte# 0.83 X10^3/uL; Monocyte% 5.5 % (0-10); NRBC Flagged by Analyzer 0 % (0-5); Neutrophil # 13.29 X10^3/uL (2.7-7.7); Neutrophil % 88.6 % (47-70); Platelet Count 187 K/mm3 (150-450); RBC Distribution Width CV 13.4 % (11.6-14.6); RBC Distribution Width SD 45.7 fl (35.1-43.9); Red Blood Count 4.36 M/mm3 (4.2-5.4)
[2020-06-18 07:21] LABS: Anion Gap 3 (5-15); BUN 9 mg/dL (7-18); BUN/Creat Ratio 11.7 RATIO (10-20); Calcium,Total 8.3 mg/dL (8.5-10.1); Chloride 108 mmol/L (98-107); Creatinine, Serum 0.77 mg/dL (0.55-1.02); EST Glomerular Filtration Rate 77 mL/min (>60); Est Glom Filt Rate - Afr Amer 94 mL/min (>60); Estimated Creatinine Clearance 36.12 ml/min; Glucose 131 mg/dL (74-106); Potassium 3.9 mmol/L (3.5-5.1); Sodium Level 140 mmol/L (136-145)
[2020-06-18 07:24] VITALS: O2SAT 95
[2020-06-18 07:26] VITALS: BP 142/78; PULSE 97; RESP 16; TEMP 37.4; O2SAT 97
[2020-06-18 07:28] VITALS: PULSE 97; RESP 16; O2SAT 97
--- NOTE | 2020-06-18 08:10 | PN_ITS ---
Patient Problems: Active and Suspected Problems Left lumbar radiculopathy (Acute) Reason for Visit: Status post lumbar laminectomy discectomy L5-S1 on the left Subjective: Patient is a 74-year-old lady who underwent Lumbar laminectomy discectomy L5-S1 on the left by Dr. Julio Ontiveros on 06/17/2020 on account of Large herniated disc L5-S1 on the left with severe left L5 and S1 radiculopathy intractable pain and neurological deficit. The hospitalist service was consulted to assist with management of patient medical comorbidities. Objective: GENERAL: cooperative HEENT: Atraumatic; EYES; Anicteric, Normal Conjunctiva NECK; supple, normal thyroid, RESPIRATORY: Diminished to auscultation CARDIOVASCULAR: Regular S1 S2, GI: soft, normoactive bowel sounds, : No Renal angle tenderness; EXTREMITIES: No edema, no clubbing, MUSCULOSKELETAL: no muscle waisting NEURO: Awake; no lateralizing signs. SKIN: No Rash PSYCH; Flat affect Vitals/I&O's: Vital Signs Temp Pulse Resp BP Pulse Ox 99.4 F H 97 16 142/78 H 97 06/18/20 07:26 06/18/20 07:28 06/18/20 07:28 06/18/20 07:26 06/18/20 07:28 Oxygen Flow Rate (L/min) 6 Oxygen Delivery Method Room Air Weight: 73.8 kg Body Mass Index (BMI) 29.9 Intake and Output for Last 24 Hours 06/16/20 06/17/20 06/18/20 23:59 23:59 23:59 Intake Total 1739.5 / 1739.5 648.33 / 648.33 Output Total 1700 / 1700 1005 / 1005 Balance 39.5 / 39.5 -356.67 / -356.67 Microbiology Past 72 Hours 06/14/20 09:37 Interface Orders Nasal Screen MRSA/MSSA - Final Laboratory Results 06/17/20 09:45: POC Glucose 96 06/18/20 06:50: WBC 15.0 H, RBC 4.36, Hgb 13.1, Hct 40.4, MCV 92.7, MCH 30.0, MCHC 32.4, RDW Std Deviation 45.7 H, RDW Coeff of Yousuf 13.4, Plt Count 187, MPV 11.1, Immature Gran % (Auto) 1.300 H, Neut % (Auto) 88.6 H, Lymph % (Auto) 4.2 L , [place] % (Auto) 5.5, Eos % (Auto) 0.2, Baso % (Auto) 0.2, Absolute Neuts (auto) 13.3 H, Absolute Lymphs (auto) 0.63 L, Nucleated RBC % 0 06/18/20 06:50: Sodium 140, Potassium 3.9, Chloride 108 H, Carbon Dioxide 29.0, Anion Gap 3 L, BUN 9, Creatinine 0.77, Estim Creat Clear Calc 36.12, Est GFR (MDRD) Af Amer 94, Est GFR (MDRD) Non-Af 77, BUN/Creatinine Ratio 11.7, Glucose 131 H, Calcium 8.3 L Current Medications Cholecalciferol (Cholecalciferol (Vit D3) 1,000 Unit (25mcg)) 1,000 unit PO DAILY [facility] Diazepam (Diazepam 5 Mg Tablet) 5 mg PO Q6H PRN PRN PRN Reason: Muscle Spasms Enteral Nutritional Formula (Ensure Surgery 237 Ml Liquid) 237 ml PO TIDCM [facility] Last Admin: 06/17/20 18:03 Dose: Not Given Documented by: Famotidine (Famotidine 20 Mg Tablet) 20 mg PO BID [facility] Last Admin: 06/17/20 21:29 Dose: 20 mg Documented by: Gabapentin (Gabapentin 300 Mg Capsule) 300 mg PO TID [facility] Last Admin: 06/18/20 05:47 Dose: 300 mg Documented by: Lactated Ringer's () 1,000 mls @ 100 mls/hr IV .Q10H [facility] Last Infusion: 06/18/20 03:38 Dose: 100 mls/hr Documented by: Sodium Chloride () 250 mls @ 15 mls/hr IV .[id number] PRN PRN Reason: Saline Flush Sodium Chloride () 250 mls @ 15 mls/hr IV .[id number] PRN PRN Reason: Additional IVPB Infusion Lisinopril (Lisinopril 10 Mg Tablet) 10 mg PO DAILY [facility] Last Admin: 06/17/20 22:54 Dose: 10 mg Documented by: Morphine Sulfate (Morphine 4 Mg/Ml Syringe) 2 - 4 mg IV Q2H PRN PRN PRN Reason: Pain Score 6-10 Last Admin: 06/18/20 03:08 Dose: 4 mg Documented by: Ondansetron HCl (Ondansetron 4 Mg/2 Ml Vial) 4 mg IV Q8H PRN PRN PRN Reason: NAUSEA Polyethylene Glycol (Polyethylene Glycol 3350 17 Gm Packet) 17 gm PO DAILY [facility] Senna/Docusate Sodium (Senna/Docusate Sodium 1 Tablet) 2 tablet PO BID [facility] Last Admin: 06/17/20 21:29 Dose: 2 tablet Documented by: Sodium Chloride (0.9% Nacl Peripheral Flush Adult/Peds) 5 - 15 ml IV UD PRN PRN Reason: SALINE FLUSH Sodium Chloride (0.9% Saline Lock 10 Ml Syringe) 10 - 40 ml IV UD PRN PRN Reason: SALINE FLUSH Tramadol HCl (Tramadol 50 Mg Tablet) 50 - 100 mg PO Q6H PRN PRN PRN Reason: Pain Score 4-5 Last Admin: 06/17/20 21:29 Dose: 100 mg Documented by: Zolpidem Tartrate (Zolpidem Tartrate 5 Mg Tablet) 5 mg PO QHS PRN PRN PRN Reason: INSOMNIA STROKE Vital Signs/Narrative: Vital Signs Temp Pulse Resp BP Pulse Ox 06/18/20 07:28 97 16 97 06/18/20 07:26 99.4 F H 97 16 142/78 H 97 06/18/20 07:24 95 Medical Necessity - Tobacco Use Smoking Status: Never smoker Assessment/Plan All Active Problems Left lumbar radiculopathy (Acute) Patient is a 74-year-old lady who underwent Lumbar laminectomy discectomy L5-S1 on the left by Dr. Julio Ontiveros on 06/17/2020 on account of Large herniated disc L5-S1 on the left with severe left L5 and S1 radiculopathy intractable pain and neurological deficit. The hospitalist service was consulted to assist with management of patient medical comorbidities. 1. Status post lumbar laminectomy discectomy L5-S1 on the left -by Dr. Julio Ontiveros on 06/17/2020 on account of Large herniated disc L5-S1 on the left with severe left L5 and S1 radiculopathy intractable pain and neurological deficit 2. Hypertension - Blood pressure controlled, home medications continued with dose adjustment as needed 3. Unspecified arthritis on leflunomide and as needed prednisone. 4. DVT prophylaxis -bilateral SCDs for now chemoprophylaxis deferred to patient's surgeon Inpatient E&M: 38824 Subs Hosp L2
[2020-06-18] MEDS: Ensure Surgery 237 ML LIQUID PO (08:58)
[2020-06-18] MEDS: Senna/Docusate Sodium 1 Tablet 2 TABLET PO (08:59)
[2020-06-18] MEDS: Famotidine 20 MG Tablet PO (09:00)
[2020-06-18] MEDS: Lisinopril 10 MG Tablet PO (09:00)
[2020-06-18] MEDS: traMADol 50 MG Tablet PO ×3 (10:02→14:53)
[2020-06-18 11:37] VITALS: BP 123/57; PULSE 74; RESP 16; TEMP 37.1; O2SAT 97
--- NOTE | 2020-06-18 16:10 | CASEMGMT ---
NILSA CM in to discuss VIGIL form with patient. RN NOEMI explained VIGIL form to patient. Patient voiced understanding and signed VIGIL form. Signed VIGIL form placed in chart, copy provided to patient. Patient had no further questions or concerns.
--- NOTE | 2020-06-18 16:31 | PCM.DC.BLA ---
Discharge Summary Date of Admission: 06/17/20 Date of Discharge: 06/18/20 Patient Problems: Active and Suspected Problems Left lumbar radiculopathy (Acute) - Physical Exam Vitals/I&O's: Vital Signs Temp Pulse Resp BP Pulse Ox 98.7 F 74 16 123/57 H 97 06/18/20 11:37 06/18/20 11:37 06/18/20 11:37 06/18/20 11:37 06/18/20 11:37 Oxygen Flow Rate (L/min) 6 Oxygen Delivery Method Room Air Weight: 162 lb 11.218 oz Body Mass Index (BMI) 29.9 Intake and Output for Last 24 Hours 06/16/20 06/17/20 06/18/20 23:59 23:59 23:59 Intake Total 1739.5 / 1739.5 1190.00 / 1190.00 Output Total 1700 / 1700 1905 / 1905 Balance 39.5 / 39.5 -715.00 / -715.00 Microbiology Past 72 Hours 06/14/20 09:37 Interface Orders Nasal Screen MRSA/MSSA - Final Laboratory Results 06/18/20 06:50: WBC 15.0 H, RBC 4.36, Hgb 13.1, Hct 40.4, MCV 92.7, MCH 30.0, MCHC 32.4, RDW Std Deviation 45.7 H, RDW Coeff of Yousuf 13.4, Plt Count 187, MPV 11.1, Immature Gran % (Auto) 1.300 H, Neut % (Auto) 88.6 H, Lymph % (Auto) 4.2 L, [place] % (Auto) 5.5, Eos % (Auto) 0.2, Baso % (Auto) 0.2, Absolute Neuts (auto) 13.3 H, Absolute Lymphs (auto) 0.63 L, Nucleated RBC % 0 06/18/20 06:50: Sodium 140, Potassium 3.9, Chloride 108 H, Carbon Dioxide 29.0, Anion Gap 3 L, BUN 9, Creatinine 0.77, Estim Creat Clear Calc 36.12, Est GFR (MDRD) Af Amer 94, Est GFR (MDRD) Non-Af 77, BUN/Creatinine Ratio 11.7, Glucose 131 H, Calcium 8.3 L Current Medications Cholecalciferol (Cholecalciferol (Vit D3) 1,000 Unit (25mcg)) 1,000 unit PO DAILY [facility] Last Admin: 06/18/20 09:00 Dose: 1,000 unit Documented by: Diazepam (Diazepam 5 Mg Tablet) 5 mg PO Q6H PRN PRN PRN Reason: Muscle Spasms Enteral Nutritional Formula (Ensure Surgery 237 Ml Liquid) 237 ml PO TIDCM [facility] Last Admin: 06/18/20 12:41 Dose: Not Given Documented by: Famotidine (Famotidine 20 Mg Tablet) 20 mg PO BID [facility] Last Admin: 06/18/20 09:00 Dose: 20 mg Documented by: Gabapentin (Gabapentin 300 Mg Capsule) 300 mg PO TID [facility] Last Admin: 06/18/20 14:53 Dose: 300 mg Documented by: Lactated Ringer's () 1,000 mls @ 100 mls/hr IV .Q10H [facility] Last Admin: 06/18/20 16:10 Dose: Not Given Documented by: Sodium Chloride () 250 mls @ 15 mls/hr IV .[id number] PRN PRN Reason: Saline Flush Sodium Chloride () 250 mls @ 15 mls/hr IV .[id number] PRN PRN Reason: Additional IVPB Infusion Lisinopril (Lisinopril 10 Mg Tablet) 10 mg PO DAILY [facility] Last Admin: 06/18/20 09:00 Dose: 10 mg Documented by: Morphine Sulfate (Morphine 4 Mg/Ml Syringe) 2 - 4 mg IV Q2H PRN PRN PRN Reason: Pain Score 6-10 Last Admin: 06/18/20 03:08 Dose: 4 mg Documented by: Ondansetron HCl (Ondansetron 4 Mg/2 Ml Vial) 4 mg IV Q8H PRN PRN PRN Reason: NAUSEA Polyethylene Glycol (Polyethylene Glycol 3350 17 Gm Packet) 17 gm PO DAILY [facility] Last Admin: 06/18/20 09:00 Dose: Not Given Documented by: Senna/Docusate Sodium (Senna/Docusate Sodium 1 Tablet) 2 tablet PO BID [facility] Last Admin: 06/18/20 08:59 Dose: 2 tablet Documented by: Sodium Chloride (0.9% Nacl Peripheral Flush Adult/Peds) 5 - 15 ml IV UD PRN PRN Reason: SALINE FLUSH Sodium Chloride (0.9% Saline Lock 10 Ml Syringe) 10 - 40 ml IV UD PRN PRN Reason: SALINE FLUSH Tramadol HCl (Tramadol 50 Mg Tablet) 50 - 100 mg PO Q6H PRN PRN PRN Reason: Pain Score 4-5 Last Admin: 06/18/20 14:53 Dose: 50 mg Documented by: Zolpidem Tartrate (Zolpidem Tartrate 5 Mg Tablet) 5 mg PO QHS PRN PRN PRN Reason: INSOMNIA
--- NOTE | 2020-06-18 16:32 | DCINST_ITS ---
Discharge Activity: May Not Drive, May not drive while taking narcotic pain medications. May shower in (days): 5 Weight Bearing Status: Full weight bearing Call your doctor if your incision/area has: Increased Pain/ Swelling, Foul Smelling Discharge Call your doctor if you observe: Shortness of breath, Calf discomfort, Uncontrolled pain Remove Dressing in (days):: 4 Cleanse incision/area with: Soap & Water Allergies/Adverse Reactions: Allergies codeine Allergy (Verified 06/17/20 09:28) Vomiting Medications to take at Discharge Cholecalciferol (Vitamin D3) [Vitamin D3] 1,000 unit PO DAILY 08/18/13 Gabapentin 300 mg PO TID 30 Days #89 cap 06/04/20 Leflunomide [Arava] 10 mg PO DAILY 06/06/20 Acetaminophen [Tylenol] 1,000 mg PO Q8H PRN PRN #30 tab 06/09/20 Lisinopril [Zestril] 10 mg PO DAILY #30 tab 06/09/20 Polyethylene Glycol 3350 [Miralax] 17 gm PO DAILY #30 packet 06/09/20 Orders to be completed after discharge: 12 Lead EKG [[facility]] Time Frame: 06/14/20, Location: None Selected Primary Care Physician: Ricardo Reynolds DO [Primary Care Provider] - Please follow up with your Primary Care Physician in: dr Ochoa Test Results: Test results from this visit will be discussed in further detail at your follow- up appointment, if applicable. Proposed Discharge Date: 06/18/20
== END 2020-06-18 17:17 | disposition home or self-care (01) ==
LOC: MS3 06-18 07:18 → SDC 06-21 07:55
PROVIDERS: Anesthesiology; Internal Medicine; Admitting Provider Orthopaedic Surgery; PCP Family Medicine; Referring Provider Orthopaedic Surgery; Visit Provider Internal Medicine
PROC: (CPT 63030; principal; 2020-06-17 10:55)
DX: M51.26 Other intervertebral disc displacement, lumbar region (principal); I10 Essential (primary) hypertension; M19.90 Unspecified osteoarthritis, unspecified site; Z20.828 Contact with and (suspected) exposure to other viral communicable diseases; Z79.899 Other long term (current) drug therapy; Z79.52 Long term (current) use of systemic steroids; G89.29 Other chronic pain; K21.9 Gastro-esophageal reflux disease without esophagitis; Z90.5 Acquired absence of kidney
CPT/HCPCS: 63030; 36415; 72020; 80048; 82962; 83735; 85025; 86703; 86704; 86705; 86706; 86708; 86709; 86803; 87081; 87340; 87426; 93005; 96361; 96365; 96366; 96375; 96376; 97161; 97802; 99218; 99251; C9803; J7120; G0378; G0379; G0463; J2405

== ENCOUNTER → 2020-08-11 12:33 | Outpatient (CLI) | payer MEDICARE, BC, SELFPAY ==
[2020-08-11 15:06] LABS: Absolute Lymphocyte Count 1.25 X10^3/uL (0.83-4.51); Absolute Neutrophil Count 5.4 X10^3/uL (2.0-7.7); Basophil# 0.05 X10^3/uL; Basophil% 0.7 % (0-1); Eosinophil# 0.07 X10^3/uL; Eosinophils% 0.9 % (0-5); Hematocrit 44.8 % (37-47); Hemoglobin 14.4 g/dL (12.0-15.0); Lymphocyte # 1.25 X10^3/ul (0.83-4.51); Lymphocyte % 16.6 % (19-41); Mean Corp Hgb Conc 32.1 g/dL (32-36); Mean Corpuscular Hgb 30.3 pg (27.0-32.0); Mean Corpuscular Volume 94.3 fL (81-99); Mean Platelet Vol. 12.4 fl (6.2-12.0); Monocyte# 0.69 X10^3/uL; Monocyte% 9.2 % (0-10); NRBC Flagged by Analyzer 0 % (0-5); Neutrophil # 5.42 X10^3/uL (2.7-7.7); Neutrophil % 72.2 % (47-70); Platelet Count 253 K/mm3 (150-450); RBC Distribution Width CV 13.5 % (11.6-14.6); RBC Distribution Width SD 46.7 fl (35.1-43.9); Red Blood Count 4.75 M/mm3 (4.2-5.4); White Blood Count 7.5 K/mm3 (4.4-11.0)
[2020-08-11 15:21] LABS: AST(SGOT) 18 U/L (15-37); Alanine Aminotransfer ALT/SGPT 29 U/L (13-56); Albumin, Serum 3.7 g/dL (3.2-5.0); Alkaline Phosphatase 72 U/L (45-117); Anion Gap 4 (5-15); BUN 23 mg/dL (7-18); BUN/Creat Ratio 19.5 RATIO (10-20); Calcium,Total 9.4 mg/dL (8.5-10.1); Chloride 108 mmol/L (98-107); Creatinine, Serum 1.18 mg/dL (0.55-1.02); EST Glomerular Filtration Rate 47 mL/min (>60); Est Glom Filt Rate - Afr Amer 57 mL/min (>60); Globulin 3.6 g/dL (2.2-4.2); Glucose 113 mg/dL (74-106); Potassium 3.9 mmol/L (3.5-5.1); Protein, Total 7.3 g/dL (6.4-8.2); Sodium Level 141 mmol/L (136-145)
== END ==
PROVIDERS: PCP Family Medicine; Referring Provider Internal Medicine Rheumatology; Visit Provider Internal Medicine Rheumatology
DX: M06.4 Inflammatory polyarthropathy (principal); M25.551 Pain in right hip; M21.40 Flat foot [pes planus] (acquired), unspecified foot; K31.9 Disease of stomach and duodenum, unspecified; R51.9 Headache, unspecified; J45.909 Unspecified asthma, uncomplicated; M47.897 Other spondylosis, lumbosacral region; Z90.5 Acquired absence of kidney; Z79.899 Other long term (current) drug therapy
CPT/HCPCS: 36415; 80053; 85025

== ENCOUNTER → 2020-10-26 12:27 | Outpatient (CLI) | payer MEDICARE, BC, SELFPAY ==
[2020-09-08 10:33] VITALS: BMI 29.9
[2020-10-26 15:19] LABS: Absolute Lymphocyte Count 1.45 X10^3/uL (0.83-4.51); Absolute Neutrophil Count 4.7 X10^3/uL (2.0-7.7); Basophil# 0.04 X10^3/uL; Basophil% 0.6 % (0-1); Eosinophil# 0.07 X10^3/uL; Hematocrit 48.6 % (37-47); Hemoglobin 15.2 g/dL (12.0-15.0); Lymphocyte # 1.45 X10^3/ul (0.83-4.51); Lymphocyte % 21.1 % (19-41); Mean Corp Hgb Conc 31.3 g/dL (32-36); Mean Corpuscular Hgb 29.1 pg (27.0-32.0); Mean Corpuscular Volume 92.9 fL (81-99); Mean Platelet Vol. 12.8 fl (6.2-12.0); Monocyte# 0.63 X10^3/uL; Monocyte% 9.2 % (0-10); NRBC Flagged by Analyzer 0 % (0-5); Neutrophil # 4.65 X10^3/uL (2.7-7.7); Neutrophil % 67.8 % (47-70); Platelet Count 275 K/mm3 (150-450); RBC Distribution Width CV 12.7 % (11.6-14.6); RBC Distribution Width SD 43.4 fl (35.1-43.9); Red Blood Count 5.23 M/mm3 (4.2-5.4); White Blood Count 6.9 K/mm3 (4.4-11.0)
[2020-10-26 15:33] LABS: AST(SGOT) 23 U/L (15-37); Alanine Aminotransfer ALT/SGPT 35 U/L (13-56); Albumin, Serum 3.8 g/dL (3.2-5.0); Alkaline Phosphatase 95 U/L (45-117); Anion Gap 8 (5-15); BUN 17 mg/dL (7-18); BUN/Creat Ratio 19.6 RATIO (10-20); Calcium,Total 9.4 mg/dL (8.5-10.1); Chloride 106 mmol/L (98-107); Creatinine, Serum 0.87 mg/dL (0.55-1.02); EST Glomerular Filtration Rate 68 mL/min (>60); Est Glom Filt Rate - Afr Amer 82 mL/min (>60); Globulin 3.9 g/dL (2.2-4.2); Glucose 83 mg/dL (74-106); Potassium 4.5 mmol/L (3.5-5.1); Protein, Total 7.7 g/dL (6.4-8.2); Sodium Level 142 mmol/L (136-145)
== END ==
PROVIDERS: PCP Family Medicine; Referring Provider Internal Medicine Rheumatology; Visit Provider Internal Medicine Rheumatology
DX: M06.4 Inflammatory polyarthropathy (principal); M21.40 Flat foot [pes planus] (acquired), unspecified foot; K21.9 Gastro-esophageal reflux disease without esophagitis; R51.9 Headache, unspecified; J45.909 Unspecified asthma, uncomplicated; M47.897 Other spondylosis, lumbosacral region; Z90.5 Acquired absence of kidney; Z79.899 Other long term (current) drug therapy
CPT/HCPCS: 36415; 80053; 85025

== ENCOUNTER → 2021-01-11 11:12 | Outpatient (CLI) | payer MEDICARE, BC, SELFPAY ==
[2021-01-11 12:00] LABS: Absolute Lymphocyte Count 1.22 X10^3/uL (0.83-4.51); Absolute Neutrophil Count 3.8 X10^3/uL (2.0-7.7); Basophil# 0.04 X10^3/uL; Basophil% 0.7 % (0-1); Eosinophil# 0.07 X10^3/uL; Eosinophils% 1.2 % (0-5); Hematocrit 46.6 % (37-47); Hemoglobin 14.8 g/dL (12.0-15.0); Lymphocyte # 1.22 X10^3/ul (0.83-4.51); Lymphocyte % 21.4 % (19-41); Mean Corp Hgb Conc 31.8 g/dL (32-36); Mean Corpuscular Hgb 28.6 pg (27.0-32.0); Mean Corpuscular Volume 90.1 fL (81-99); Monocyte# 0.57 X10^3/uL; NRBC Flagged by Analyzer 0 % (0-5); Neutrophil # 3.78 X10^3/uL (2.7-7.7); Neutrophil % 66.3 % (47-70); Platelet Count 256 K/mm3 (150-450); RBC Distribution Width CV 13.6 % (11.6-14.6); RBC Distribution Width SD 45.2 fl (35.1-43.9); Red Blood Count 5.17 M/mm3 (4.2-5.4); White Blood Count 5.7 K/mm3 (4.4-11.0)
[2021-01-11 12:29] LABS: ALB/GLOB Ratio 0.9 RATIO (0.9-2.4); AST(SGOT) 21 U/L (15-37); Alanine Aminotransfer ALT/SGPT 24 U/L (13-56); Albumin, Serum 3.7 g/dL (3.2-5.0); Alkaline Phosphatase 74 U/L (45-117); Anion Gap 8 (5-15); BUN 19 mg/dL (7-18); BUN/Creat Ratio 19.6 RATIO (10-20); Calcium,Total 9.4 mg/dL (8.5-10.1); Chloride 106 mmol/L (98-107); Creatinine, Serum 0.97 mg/dL (0.55-1.02); EST Glomerular Filtration Rate 59 mL/min (>60); Est Glom Filt Rate - Afr Amer 72 mL/min (>60); Globulin 3.9 g/dL (2.2-4.2); Glucose 96 mg/dL (74-106); Potassium 3.8 mmol/L (3.5-5.1); Protein, Total 7.6 g/dL (6.4-8.2); Sodium Level 140 mmol/L (136-145)
== END ==
PROVIDERS: PCP Family Medicine; Referring Provider Internal Medicine Rheumatology; Visit Provider Internal Medicine Rheumatology
DX: M06.4 Inflammatory polyarthropathy (principal); M21.40 Flat foot [pes planus] (acquired), unspecified foot; K21.9 Gastro-esophageal reflux disease without esophagitis; R51.9 Headache, unspecified; J45.909 Unspecified asthma, uncomplicated; M47.897 Other spondylosis, lumbosacral region; Z79.899 Other long term (current) drug therapy; Z90.5 Acquired absence of kidney
CPT/HCPCS: 36415; 80053; 85025

== ENCOUNTER → 2021-03-24 14:00 | Outpatient (CLI) | payer MEDICARE, BC, SELFPAY ==
--- NOTE | 2021-03-24 14:02 | US_ITS ---
STUDY: RENAL ULTRASOUND - COMPLETE REASON FOR EXAM: Female, 75 years old. UTI . The patient is status post right nephrectomy. TECHNIQUE: Ultrasound evaluation of the kidneys was performed with real-time and static mendoza-scale imaging. COMPARISON: None. FINDINGS: RIGHT KIDNEY: The patient is status post right nephrectomy. LEFT KIDNEY: Normal location of the left kidney, which is normal in size. The left kidney measures 12.3 cm x 5.4 cm x 4.8 cm. There is a normal cortex of the left kidney. The renal cortex measures 1.2 cm. There is no left renal mass or cyst. There are no left renal calculi. There is a moderate degree of the left hydronephrosis. DISTAL LEFT URETER: There is non-visualization of the distal left ureter. There is no demonstrated left ureterovesical junction calculus. There is a visualized left ureteral jet. BLADDER: The distended urinary bladder has a volume of 47.4 ml. Limited evaluation the bladder due to noncompete distention. US/Kidney and Bladder IMPRESSION: Status post right nephrectomy. Moderate degree of left hydronephrosis. Electronically Signed: Sheldon Preciado MD at 15:43 EST , Service support ,
== END ==
PROVIDERS: PCP Family Medicine; Referring Provider Urology; Visit Provider Urology
DX: N39.0 Urinary tract infection, site not specified (principal)
CPT/HCPCS: 76770

== ENCOUNTER → 2021-04-07 11:17 | Outpatient (CLI) | payer MEDICARE, BC, SELFPAY ==
[2021-04-07 15:16] LABS: Absolute Lymphocyte Count 1.42 X10^3/uL (0.83-4.51); Basophil# 0.04 X10^3/uL; Basophil% 0.7 % (0-1); Eosinophil# 0.05 X10^3/uL; Eosinophils% 0.8 % (0-5); Hematocrit 47.2 % (37-47); Hemoglobin 15.1 g/dL (12.0-15.0); Lymphocyte # 1.42 X10^3/ul (0.83-4.51); Lymphocyte % 23.2 % (19-41); Mean Corpuscular Volume 90.8 fL (81-99); Mean Platelet Vol. 12.8 fl (6.2-12.0); Monocyte# 0.59 X10^3/uL; Monocyte% 9.6 % (0-10); NRBC Flagged by Analyzer 0 % (0-5); Neutrophil % 65.4 % (47-70); Platelet Count 207 K/mm3 (150-450); RBC Distribution Width CV 13.2 % (11.6-14.6); RBC Distribution Width SD 43.9 fl (35.1-43.9); White Blood Count 6.1 K/mm3 (4.4-11.0)
[2021-04-07 15:48] LABS: AST(SGOT) 25 U/L (15-37); Alanine Aminotransfer ALT/SGPT 36 U/L (13-56); Albumin, Serum 3.9 g/dL (3.2-5.0); Alkaline Phosphatase 75 U/L (45-117); Anion Gap 9 (5-15); BUN 23 mg/dL (7-18); BUN/Creat Ratio 23.6 RATIO (10-20); Calcium,Total 9.7 mg/dL (8.5-10.1); Chloride 105 mmol/L (98-107); Creatinine, Serum 0.98 mg/dL (0.55-1.02); EST Glomerular Filtration Rate 59 mL/min (>60); Est Glom Filt Rate - Afr Amer 71 mL/min (>60); Globulin 3.8 g/dL (2.2-4.2); Glucose 98 mg/dL (74-106); Potassium 3.7 mmol/L (3.5-5.1); Protein, Total 7.7 g/dL (6.4-8.2); Sodium Level 140 mmol/L (136-145)
== END ==
PROVIDERS: PCP Family Medicine; Referring Provider Internal Medicine Rheumatology; Visit Provider Internal Medicine Rheumatology
DX: M06.4 Inflammatory polyarthropathy (principal); Z79.899 Other long term (current) drug therapy; M21.40 Flat foot [pes planus] (acquired), unspecified foot; M47.897 Other spondylosis, lumbosacral region; K21.9 Gastro-esophageal reflux disease without esophagitis; R51.9 Headache, unspecified; J45.909 Unspecified asthma, uncomplicated; Z90.5 Acquired absence of kidney
CPT/HCPCS: 36415; 80053; 85025

== ENCOUNTER 2021-04-14 14:38 | Outpatient (CLI) | payer MEDICARE, BC, SELFPAY ==
--- NOTE | 2021-04-14 15:00 | CT_ITS ---
STUDY: CT ABDOMEN AND PELVIS WITH AND WITHOUT CONTRAST REASON FOR EXAM: Female, 75 years old. HYDRONEPHROSIS RADIATION DOSAGE (If Supplied By Facility): CTDIvol = ( 16.89 ) mGy, DLP = ( 2461.91 ) mGycm TECHNIQUE: Transaxial images were obtained from the dome of the diaphragm to the symphysis pubis without oral contrast. IV 100mL Isovue-370 was administered. Sagittal and coronal images were reconstructed. Individualized dose optimization techniques were used for this CT. COMPARISON: None. FINDINGS: Minimal degree of increased markings at the lung bases suggestive of mild scarring. The visualized portions of the heart are within normal limits. There is decreased attenuation of the liver consistent with steatosis. The patient is status post cholecystectomy. Normal spleen. Normal pancreas. Normal bilateral adrenal glands. The right kidney is absent. Left parapelvic cysts. No significant hydronephrosis is seen. There is a small hiatal hernia. Normal small intestine. There is diverticulosis, with thickening of the colon wall, and pericolonic inflammation changes consistent with acute diverticulitis. The appendix is visualized and appears normal. There is diffuse atherosclerotic calcification of the abdominal aorta, without a demonstrated aneurysm. Normal inferior vena cava. Normal retroperitoneum. Normal urinary bladder. There is absence of the uterus consistent with a prior hysterectomy. Normal abdominal wall. There are mild degenerative changes of the visualized lumbar spine. Minimal anterior listhesis of L5 on S1 and spondylolysis of the pars interarticularis at the L5 vertebrae. There is evidence of hemangioma of the L3 vertebral body. CT/CT Abd/Pelvis W/WO Contrast IMPRESSION: Left parapelvic cysts. No significant hydronephrosis is seen. The right kidney is not visualized. Electronically Signed: Sheldon Preciado MD at 15:25 EST , Service support ,
== END 2021-04-14 23:59 | disposition short-term general hospital (02) ==
LOC: CT 14:40
PROVIDERS: PCP Family Medicine; Referring Provider Urology; Visit Provider Urology
DX: N13.2 Hydronephrosis with renal and ureteral calculous obstruction (principal)
CPT/HCPCS: 74178; Q9967

== ENCOUNTER 2021-07-06 10:46 | Outpatient (CLI) | payer MEDICARE, BC, SELFPAY ==
[2021-07-06 11:06] LABS: Absolute Lymphocyte Count 1.44 X10^3/uL (0.83-4.51); Basophil# 0.04 X10^3/uL; Basophil% 0.7 % (0-1); Eosinophil# 0.08 X10^3/uL; Eosinophils% 1.3 % (0-5); Hematocrit 44.3 % (37-47); Hemoglobin 14.6 g/dL (12.0-15.0); Lymphocyte # 1.44 X10^3/ul (0.83-4.51); Lymphocyte % 23.9 % (19-41); Mean Corpuscular Hgb 29.3 pg (27.0-32.0); Mean Platelet Vol. 11.4 fl (6.2-12.0); Monocyte# 0.43 X10^3/uL; Monocyte% 7.1 % (0-10); NRBC Flagged by Analyzer 0 % (0-5); Neutrophil # 4.02 X10^3/uL (2.7-7.7); Neutrophil % 66.7 % (47-70); Platelet Count 213 K/mm3 (150-450); RBC Distribution Width SD 42.3 fl (35.1-43.9); Red Blood Count 4.98 M/mm3 (4.2-5.4)
[2021-07-06 11:38] LABS: ALB/GLOB Ratio 1.1 RATIO (0.9-2.4); AST(SGOT) 22 U/L (15-37); Alanine Aminotransfer ALT/SGPT 24 U/L (13-56); Albumin, Serum 3.9 g/dL (3.2-5.0); Alkaline Phosphatase 66 U/L (45-117); Anion Gap 5 (5-15); BUN 17 mg/dL (7-18); BUN/Creat Ratio 16.3 RATIO (10-20); Calcium,Total 9.4 mg/dL (8.5-10.1); Chloride 108 mmol/L (98-107); Creatinine, Serum 1.04 mg/dL (0.55-1.02); EST Glomerular Filtration Rate 55 mL/min (>60); Est Glom Filt Rate - Afr Amer 66 mL/min (>60); Globulin 3.5 g/dL (2.2-4.2); Glucose 111 mg/dL (74-106); Potassium 4.1 mmol/L (3.5-5.1); Protein, Total 7.4 g/dL (6.4-8.2); Sodium Level 141 mmol/L (136-145)
== END 2021-07-06 23:59 | disposition home or self-care (01) ==
LOC: LAB 10:49
PROVIDERS: PCP Family Medicine; Referring Provider Internal Medicine Rheumatology; Visit Provider Internal Medicine Rheumatology
DX: M06.4 Inflammatory polyarthropathy (principal); M21.40 Flat foot [pes planus] (acquired), unspecified foot; K21.9 Gastro-esophageal reflux disease without esophagitis; R51.9 Headache, unspecified; J45.909 Unspecified asthma, uncomplicated; M47.897 Other spondylosis, lumbosacral region; M47.892 Other spondylosis, cervical region; Z90.5 Acquired absence of kidney; Z79.899 Other long term (current) drug therapy
CPT/HCPCS: 36415; 80053; 85025

== ENCOUNTER → 2021-10-24 | Outpatient (CLI) | payer MEDICARE, BC, SELFPAY ==
[2021-10-24 15:44] LABS: Absolute Lymphocyte Count 1.56 X10^3/uL (0.83-4.51); Absolute Neutrophil Count 3.9 X10^3/uL (2.0-7.7); Basophil# 0.04 X10^3/uL; Basophil% 0.7 % (0-1); Eosinophil# 0.06 X10^3/uL; Hematocrit 43.9 % (37-47); Hemoglobin 14.1 g/dL (12.0-15.0); Lymphocyte # 1.56 X10^3/ul (0.83-4.51); Lymphocyte % 25.8 % (19-41); Mean Corp Hgb Conc 32.1 g/dL (32-36); Mean Corpuscular Volume 90.3 fL (81-99); Mean Platelet Vol. 12.5 fl (6.2-12.0); Monocyte# 0.49 X10^3/uL; Monocyte% 8.1 % (0-10); NRBC Flagged by Analyzer 0 % (0-5); Neutrophil # 3.87 X10^3/uL (2.7-7.7); Neutrophil % 64.1 % (47-70); Platelet Count 235 K/mm3 (150-450); RBC Distribution Width CV 13.6 % (11.6-14.6); RBC Distribution Width SD 44.8 fl (35.1-43.9); Red Blood Count 4.86 M/mm3 (4.2-5.4)
[2021-10-24 16:31] LABS: ALB/GLOB Ratio 1.2 RATIO (0.9-2.4); AST(SGOT) 17 U/L (15-37); Alanine Aminotransfer ALT/SGPT 17 U/L (13-56); Albumin, Serum 4.1 g/dL (3.2-5.0); Alkaline Phosphatase 54 U/L (45-117); Anion Gap 8 (5-15); BUN 21 mg/dL (7-18); BUN/Creat Ratio 18.6 RATIO (10-20); Calcium,Total 9.6 mg/dL (8.5-10.1); Chloride 105 mmol/L (98-107); Cholesterol 201 mg/dL (200); Creatinine, Serum 1.13 mg/dL (0.55-1.02); EST Glomerular Filtration Rate 50 mL/min (>60); Est Glom Filt Rate - Afr Amer 60 mL/min (>60); Globulin 3.4 g/dL (2.2-4.2); Glucose 76 mg/dL (74-106); High Density Lipoprotein 70 mg/dL; Potassium 3.7 mmol/L (3.5-5.1); Protein, Total 7.5 g/dL (6.4-8.2); Sodium Level 141 mmol/L (136-145); Triglycerides 159 mg/dL; Very Low Density Lipoprotein 32 mg/dL (5-40)
== END | disposition home or self-care (01) ==
PROVIDERS: PCP Family Medicine; Referring Provider Internal Medicine Rheumatology; Visit Provider Internal Medicine Rheumatology
DX: M06.4 Inflammatory polyarthropathy (principal); M21.40 Flat foot [pes planus] (acquired), unspecified foot; K21.9 Gastro-esophageal reflux disease without esophagitis; R51.9 Headache, unspecified; J45.909 Unspecified asthma, uncomplicated; M47.897 Other spondylosis, lumbosacral region; M47.892 Other spondylosis, cervical region; Z90.5 Acquired absence of kidney; Z79.899 Other long term (current) drug therapy
CPT/HCPCS: 36415; 80053; 80061; 85025

== ENCOUNTER → 2021-11-03 | Outpatient (CLI) | payer MEDICARE, BC, SELFPAY ==
--- NOTE | 2021-11-03 13:17 | BI_ITS ---
MAMMOGRAPHY - BILATERAL SCREENING REASON FOR EXAM: Female, 75 years old. Routine annual screening examination. PERTINENT HISTORY: Aunts with breast cancer. Remote right excisional breast biopsy. TECHNIQUE: Digital bilateral breast allan (3D mammographic acquisition) in the CC and MLO projections. 2-D mediolateral oblique (MLO) and craniocaudad (CC) views of both breasts were obtained. CAD: Full Field Digital Mammography with Computer Added Detection was performed. COMPARISON: Comparison is made with prior study 12/10/2014 and 09/23/2012. FINDINGS: Breast Composition: The breasts are heterogeneously dense, which may obscure small masses. There are no dominant masses or suspicious calcifications. No other significant abnormalities are identified. There has been no significant change since the prior study. BI/SCRN MAMM (CAD)W/ALLAN BILAT IMPRESSION: Stable bilateral screening mammogram. Yearly follow-up mammogram recommended. (A) ASSESSMENT CATEGORY: BIRADS Category 1: Negative. A letter regarding these results will be sent to the patient by the facility within 30 days. Approximately 10% of breast cancers are not detected by mammography. A normal mammogram should not delay biopsy of a clinically suspicious abnormality. [id number] Electronically Signed: Sheldon Preciado MD at 14:38 EDT ,
--- NOTE | 2021-11-03 13:23 | BD_ITS ---
STUDY: DUAL ENERGY X-RAY ABSORPTIOMETRY / DXA REASON FOR EXAM: Female, 75 years old. M810 TECHNIQUE: Bone Mineral Density (BMD) measurements of lumbar spine and bilateral hips were obtained. COMPARISON: None. FINDINGS: Lumbar Spine (L1-L4): g/cm2 (0.766) / T-score (-1.9) / Z-score (0.5) Findings are suggestive of osteopenia with a moderate fracture risk. Left Femur Total: g/cm2 (0.758) / T-score (-1.5) / Z-score (0.4) Left Femoral Neck: g/cm2 (0.689) / T-score (-1.4) / Z-score (0.8) Right Femur Total: g/cm2 (0.717) / T-score (-1.8) / Z-score (0.1) Right Femoral Neck: g/cm2 (0.609) / T-score (-2.2) / Z-score (0.0) BD/Dexa Bone Density Study IMPRESSION: The patient is considered osteopenic as outlined below according to World Fred Organization (WHO) criteria with a moderate fracture risk. Reference Information: The T-score is the number of standard deviations above or below the standard which is normal for young adults at their peak bone mineral density. The World Health Organization (WHO) interprets the T-scores as follows: Above -1 Normal bone density Between -1 and -2.5 Osteopenia Equal to / or below -2.5 Osteoporosis As a practical clinical guideline, osteopenia may be graded as follows: Mild -1 through -1.5 Moderate -1.6 through -2.0 Severe -2.1 through -2.4 The Z-score is the number of standard deviations above or below age-matched controls. A Z-score of less than -1.5 would be considered abnormal. References: 1. NIH Osteoporosis and Related Bone Diseases www osteo.org 2. International Society for Clinical Densitometry www iscd.org 3. National Osteoporosis Foundation www nof.org Electronically Signed: Sheldon Preciado MD at 12:33 EDT ,
== END | disposition home or self-care (01) ==
LOC: OPBD 13:15
PROVIDERS: PCP Family Medicine; Visit Provider Family Medicine
DX: Z12.31 Encounter for screening mammogram for malignant neoplasm of breast (principal); M85.80 Other specified disorders of bone density and structure, unspecified site; M81.0 Age-related osteoporosis without current pathological fracture
CPT/HCPCS: 77063; 77067; 77080

== ENCOUNTER → 2022-02-23 | Outpatient (CLI) | payer MEDICARE, BC, SELFPAY ==
--- NOTE | 2022-02-23 13:16 | RAD_ITS ---
INDICATION: SHOULDER PAIN EXAMINATION/TECHNIQUE: X-RAY - RIGHT XR Shoulder Min 2 Views 4 VIEWS COMPARISON: None. FINDINGS: No acute fracture or dislocation. No destructive bone changes. Joint spaces are well-maintained. Normal alignment. Soft tissues are unremarkable. No radiopaque foreign body or soft tissue gas. RAD/Shoulder min 2 Views IMPRESSION: Negative. Electronically Signed: Suzanne Muro MD at 17:25 EST Reading Location ID and State: [id number] / Tel , Service support ,
--- NOTE | 2022-02-23 13:16 | RAD_ITS ---
INDICATION: BACK PAIN EXAMINATION/TECHNIQUE: X-RAY - XR Spine Lumbar Min 4 Views COMPARISON: None. FINDINGS: VERTEBRAE: No demonstrated fracture. 4 mm anterolisthesis at L4-5. 1.3 cm anterolisthesis at L5-S1. Alignment is otherwise normal. DISCS: Moderate disc space narrowing at L5-S1. Disc spaces are otherwise maintained. ABDOMEN: Nonobstructive bowel gas pattern. RAD/L/S Spine Min 4 Views IMPRESSION: No acute fracture. Anterolisthesis at L4-5 and L5-S1. Electronically Signed: Suzanne Muro MD at 17:23 EST Reading Location ID and State: [id number] / Tel , Service support ,
--- NOTE | 2022-02-23 13:16 | RAD_ITS ---
INDICATION: HIP AND LEG PAIN EXAMINATION/TECHNIQUE: X-RAY - LEFT XR Hip Unilateral with Pelvis when performed; 2-3 Views 3 VIEWS COMPARISON: None. FINDINGS: No acute fracture or dislocation. No destructive bone changes. Joint spaces are well-maintained. Normal alignment. Soft tissues are unremarkable. No radiopaque foreign body or soft tissue gas. RAD/HIP, UNI W/ Pelvis 2-3 Views IMPRESSION: Negative. Electronically Signed: Suzanne Muro MD at 17:10 EST Reading Location ID and State: [id number] / Tel , Service support ,
== END | disposition home or self-care (01) ==
LOC: MTRAD 13:15
PROVIDERS: PCP Family Medicine; Referring Provider Family Medicine; Visit Provider Family Medicine
DX: M25.511 Pain in right shoulder (principal); M25.552 Pain in left hip; M54.50 Low back pain, unspecified
CPT/HCPCS: 72110; 73030; 73502

== ENCOUNTER → 2022-03-23 | Outpatient (CLI) | payer MEDICARE, BC, SELFPAY ==
--- NOTE | 2022-03-23 07:56 | MRI_ITS ---
STUDY: MRI LUMBAR SPINE WITH AND WITHOUT CONTRAST REASON FOR EXAM: Female, 76 years old. Back pain and bilateral hip pain. TECHNIQUE: Standardized fat and water weighted pulse sequences were obtained in the sagittal and axial planes. IV 14ml Clariscan was administered for the contrast portion of the examination. COMPARISON: MRI lumbar spine without contrast 06/08/2020. FINDINGS: T10-T11, T11-T12 and T12-L1: (Sagittal only). Normal endplates. Normal disc height, hydration and morphology. No ventral extradural defects. Normal central canal and bilateral intervertebral neural foramina. Normal lumbar lordosis. There is no substantial scoliosis. Normal conus medullaris that terminates at the mid L1 vertebral body level. L1-2: Normal endplates. Normal disc height, hydration and morphology. Normal bilateral facet joints. Normal central canal and bilateral lateral recesses. Normal bilateral intervertebral neural foramina. L2-3: Normal endplates. Minimal disc space height narrowing. Normal facet joints. Normal central canal and bilateral lateral recesses. Small right L2 benign vertebral body hemangioma. Normal bilateral intervertebral neural foramina. L3-4: Normal endplates. Normal disc height, hydration and morphology. Normal bilateral facet joints. Normal central canal and bilateral lateral recesses. Normal bilateral intervertebral neural foramina. L4-5: Minimal Modic type I degenerative vertebral marrow edema underneath the vertebral endplates. Mild disc space height narrowing. Minimal ventral extradural defect due to small posterior bulging annulus. Mild bilateral degenerative facet arthropathy. Posterior ligamenta flava hypertrophy. Normal central canal and bilateral lateral recesses. Mild stenosis of the bilateral intervertebral neural foramina. L5-S1: Minimal Modic type I degenerative vertebral marrow edema underneath the vertebral endplates. Moderate disc space height narrowing. Nearly grade 1 degenerative anterolisthesis of L5 on S1. Moderate bilateral degenerative facet arthropathy. Decreased size of left broad disc protrusion with improvement of the left lateral recess stenosis and the displacement of the left S1 nerve root sleeve. Normal central canal and right lateral recess. Moderate stenosis of the right intervertebral neural foramen. Mild stenosis of the left intervertebral neural foramen. Normal visualized sacral ala. Normal visualized paraspinous soft tissue structures. Following IV contrast administration, there is mild contrast enhancement of the underneath the vertebral endplates at L4-L5 and L5-S1 disc space levels and mild contrast enhancement around the bilateral L4-L5 facet joints. No abnormal enhancing lesions intradurally and extradurally. MRI/Spine Lumbar W/WO Contrast IMPRESSION: 1. Decreased size of left L5-S1 broad disc protrusion with improvement of the left lateral recess stenosis and displacement of the left S1 nerve root sleeve. 2. Grade 1 degenerative anterolisthesis of L5 on S1 is unchanged. 3. Mild intervertebral osteochondritis (Modic type I) at L4-L5 and L5-S1 disc space levels with minimal contrast enhancement underneath the vertebral endplates. 4. Mild bilateral L4-L5 enhancing degenerative inflammatory arthropathy. Pending Final Proof Editing
[2022-03-23 08:30] LABS: CREATININE FINGERSTICK 0.9 mg/dL (0.55-1.02); EGFR FINGERSTICK > 60.0000 mL/min (>60)
== END | disposition home or self-care (01) ==
LOC: MRI 07:56
PROVIDERS: PCP Family Medicine; Visit Provider Orthopaedic Surgery
DX: M54.16 Radiculopathy, lumbar region (principal)
CPT/HCPCS: 72158; A9575

== ENCOUNTER → 2022-05-22 | Outpatient (CLI) | payer MEDICARE, BC, SELFPAY ==
[2022-05-22 12:16] LABS: Absolute Lymphocyte Count 1.46 X10^3/uL (0.83-4.51); Absolute Neutrophil Count 4.7 X10^3/uL (2.0-7.7); Basophil% 0.6 % (0-1); Eosinophil# 0.05 X10^3/uL; Eosinophils% 0.7 % (0-5); Hematocrit 42.2 % (37-47); Hemoglobin 13.7 g/dL (12.0-15.0); Lymphocyte # 1.46 X10^3/ul (0.83-4.51); Lymphocyte % 21.8 % (19-41); Mean Corp Hgb Conc 32.5 g/dL (32-36); Mean Corpuscular Hgb 29.6 pg (27.0-32.0); Mean Corpuscular Volume 91.1 fL (81-99); Mean Platelet Vol. 11.2 fl (6.2-12.0); Monocyte# 0.46 X10^3/uL; Monocyte% 6.9 % (0-10); Neutrophil # 4.69 X10^3/uL (2.7-7.7); Neutrophil % 69.9 % (47-70); Platelet Count 271 K/mm3 (150-450); RBC Distribution Width CV 13.5 % (11.6-14.6); RBC Distribution Width SD 45.3 fl (35.1-43.9); Red Blood Count 4.63 M/mm3 (4.2-5.4); White Blood Count 6.7 K/mm3 (4.4-11.0)
[2022-05-22 12:17] LABS: Basophil# 0.04 X10^3/uL; NRBC Flagged by Analyzer 0 % (0-5)
[2022-05-22 12:46] LABS: AST(SGOT) 20 U/L (15-37); Alanine Aminotransfer ALT/SGPT 24 U/L (13-56); Albumin, Serum 3.6 g/dL (3.2-5.0); Alkaline Phosphatase 69 U/L (45-117); Anion Gap 8 (5-15); BUN 18 mg/dL (7-18); BUN/Creat Ratio 17.6 RATIO (10-20); Calcium,Total 9.7 mg/dL (8.5-10.1); Chloride 106 mmol/L (98-107); Creatinine, Serum 1.02 mg/dL (0.55-1.02); EST Glomerular Filtration Rate 56 mL/min (>60); Est Glom Filt Rate - Afr Amer 67 mL/min (>60); Globulin 3.7 g/dL (2.2-4.2); Glucose 89 mg/dL (74-106); Protein, Total 7.3 g/dL (6.4-8.2); Sodium Level 140 mmol/L (136-145)
== END | disposition home or self-care (01) ==
PROVIDERS: PCP Family Medicine; Referring Provider Internal Medicine Rheumatology; Visit Provider Internal Medicine Rheumatology
DX: M06.4 Inflammatory polyarthropathy (principal); M21.40 Flat foot [pes planus] (acquired), unspecified foot; K21.9 Gastro-esophageal reflux disease without esophagitis; R51.9 Headache, unspecified; J45.909 Unspecified asthma, uncomplicated; M47.897 Other spondylosis, lumbosacral region; M47.892 Other spondylosis, cervical region; Z90.5 Acquired absence of kidney; Z79.899 Other long term (current) drug therapy
CPT/HCPCS: 36415; 80053; 85025

== ENCOUNTER → 2022-11-06 | Outpatient (CLI) | payer MEDICARE, BC, SELFPAY ==
--- NOTE | 2022-11-06 11:49 | BI_ITS ---
MAMMOGRAPHY - BILATERAL SCREENING REASON FOR EXAM: Female, 76 years old. Routine annual screening examination. PERTINENT HISTORY: Aunts with breast cancer. Remote right excisional breast biopsy. TECHNIQUE: Digital bilateral breast allan (3D mammographic acquisition) in the CC and MLO projections. 2-D mediolateral oblique (MLO) and craniocaudad (CC) views of both breasts were obtained. CAD: Full Field Digital Mammography with Computer Added Detection was performed. COMPARISON: Comparison is made with prior study dated November 03, 2021 and December 10, 2014. FINDINGS: Breast Composition: The breasts are heterogeneously dense, which may obscure small masses. There are no dominant masses or suspicious calcifications. Stable small benign-appearing bilateral axillary lymph nodes. No other significant abnormalities are identified. There has been no significant change since the prior study. BI/SCRN MAMM (CAD)W/ALLAN BILAT IMPRESSION: Stable bilateral screening mammogram. Yearly follow-up mammogram recommended. (A) ASSESSMENT CATEGORY: BIRADS Category 2: Benign. A letter regarding these results will be sent to the patient by the facility within 30 days. Approximately 10% of breast cancers are not detected by mammography. A normal mammogram should not delay biopsy of a clinically suspicious abnormality. [id number] Electronically Signed: Sheldon Preciado MD at 13:37 EDT ,
== END | disposition home or self-care (01) ==
LOC: OPBI 11:48
PROVIDERS: PCP Family Medicine; Referring Provider Family Medicine; Visit Provider Family Medicine
DX: Z12.31 Encounter for screening mammogram for malignant neoplasm of breast (principal)
CPT/HCPCS: 77063; 77067

== ENCOUNTER → 2022-11-14 | Outpatient (CLI) | payer MEDICARE, BC, SELFPAY ==
[2022-11-14 15:25] LABS: Absolute Lymphocyte Count 1.59 X10^3/uL (0.83-4.51); Absolute Neutrophil Count 4.6 X10^3/uL (2.0-7.7); Basophil# 0.05 X10^3/uL; Basophil% 0.7 % (0-1); Eosinophil# 0.06 X10^3/uL; Eosinophils% 0.9 % (0-5); Hematocrit 43.5 % (37-47); Hemoglobin 13.8 g/dL (12.0-15.0); Lymphocyte # 1.59 X10^3/ul (0.83-4.51); Lymphocyte % 23.2 % (19-41); Mean Corp Hgb Conc 31.7 g/dL (32-36); Mean Corpuscular Hgb 29.9 pg (27.0-32.0); Mean Corpuscular Volume 94.4 fL (81-99); Mean Platelet Vol. 12.6 fl (6.2-12.0); Monocyte# 0.53 X10^3/uL; Monocyte% 7.7 % (0-10); NRBC Flagged by Analyzer 0 % (0-5); Neutrophil # 4.61 X10^3/uL (2.7-7.7); Neutrophil % 67.2 % (47-70); Platelet Count 245 K/mm3 (150-450); RBC Distribution Width CV 13.1 % (11.6-14.6); RBC Distribution Width SD 45.1 fl (35.1-43.9); Red Blood Count 4.61 M/mm3 (4.2-5.4); White Blood Count 6.9 K/mm3 (4.4-11.0)
[2022-11-14 16:09] LABS: ALB/GLOB Ratio 1.1 RATIO (0.9-2.4); AST(SGOT) 20 U/L (15-37); Alanine Aminotransfer ALT/SGPT 22 U/L (13-56); Albumin, Serum 3.8 g/dL (3.2-5.0); Alkaline Phosphatase 63 U/L (45-117); Anion Gap 5 (5-15); BUN 21 mg/dL (7-18); BUN/Creat Ratio 19.1 RATIO (10-20); Chloride 108 mmol/L (98-107); EST Glomerular Filtration Rate 51 mL/min (>60); Est Glom Filt Rate - Afr Amer 62 mL/min (>60); Globulin 3.4 g/dL (2.2-4.2); Glucose 119 mg/dL (74-106); Potassium 3.8 mmol/L (3.5-5.1); Protein, Total 7.2 g/dL (6.4-8.2); Sodium Level 140 mmol/L (136-145)
== END | disposition home or self-care (01) ==
LOC: MTLAB 13:56
PROVIDERS: PCP Family Medicine; Referring Provider Internal Medicine Rheumatology; Visit Provider Internal Medicine Rheumatology
DX: M06.4 Inflammatory polyarthropathy (principal); Z79.899 Other long term (current) drug therapy
CPT/HCPCS: 36415; 80053; 85025

== ENCOUNTER → 2023-05-17 | Outpatient (CLI) | payer MEDICARE, BC, SELFPAY ==
[2023-05-17 10:07] LABS: Absolute Neutrophil Count 4.1 X10^3/uL (2.0-7.7); Basophil# 0.04 X10^3/uL; Basophil% 0.7 % (0-1); Eosinophil# 0.07 X10^3/uL; Eosinophils% 1.2 % (0-5); Hematocrit 41.9 % (37-47); Hemoglobin 13.4 g/dL (12.0-15.0); Mean Corpuscular Hgb 29.2 pg (27.0-32.0); Mean Corpuscular Volume 91.3 fL (81-99); Mean Platelet Vol. 11.6 fl (6.2-12.0); Monocyte# 0.34 X10^3/uL; Monocyte% 5.8 % (0-10); NRBC Flagged by Analyzer 0 % (0-5); Neutrophil # 4.14 X10^3/uL (2.7-7.7); Neutrophil % 70.1 % (47-70); Platelet Count 219 K/mm3 (150-450); RBC Distribution Width CV 13.3 % (11.6-14.6); RBC Distribution Width SD 44.7 fl (35.1-43.9); Red Blood Count 4.59 M/mm3 (4.2-5.4); White Blood Count 5.9 K/mm3 (4.4-11.0)
[2023-05-17 10:35] LABS: ALB/GLOB Ratio 1.1 RATIO (0.9-2.4); AST(SGOT) 22 U/L (15-37); Alanine Aminotransfer ALT/SGPT 21 U/L (13-56); Albumin, Serum 3.7 g/dL (3.2-5.0); Alkaline Phosphatase 66 U/L (45-117); Anion Gap 3 (5-15); BUN 18 mg/dL (7-18); BUN/Creat Ratio 19.3 RATIO (10-20); Calcium,Total 9.5 mg/dL (8.5-10.1); Chloride 107 mmol/L (98-107); Creatinine, Serum 0.93 mg/dL (0.55-1.02); EST Glomerular Filtration Rate 61 mL/min (>60); Est Glom Filt Rate - Afr Amer 74 mL/min (>60); Globulin 3.5 g/dL (2.2-4.2); Glucose 144 mg/dL (74-106); Potassium 3.8 mmol/L (3.5-5.1); Protein, Total 7.2 g/dL (6.4-8.2); Sodium Level 138 mmol/L (136-145)
== END | disposition home or self-care (01) ==
LOC: MTLAB 09:31
PROVIDERS: PCP Family Medicine; Referring Provider Internal Medicine Rheumatology; Visit Provider Internal Medicine Rheumatology
DX: M06.4 Inflammatory polyarthropathy (principal); M21.40 Flat foot [pes planus] (acquired), unspecified foot; K21.9 Gastro-esophageal reflux disease without esophagitis; R51.9 Headache, unspecified; J45.909 Unspecified asthma, uncomplicated; M47.897 Other spondylosis, lumbosacral region; M47.892 Other spondylosis, cervical region; Z90.5 Acquired absence of kidney; Z79.899 Other long term (current) drug therapy
CPT/HCPCS: 36415; 80053; 85025

== ENCOUNTER → 2023-05-31 | Outpatient (CLI) | payer MEDICARE, BC, SELFPAY ==
[2023-05-31 13:06] LABS: Insulin 8.6 mU/L (2.6-37.6)
[2023-05-31 13:18] LABS: Thyroid Stim Hormone (TSH) 1.08 uIU/mL (0.358-3.74)
== END | disposition home or self-care (01) ==
LOC: BFHLAB 10:45
PROVIDERS: PCP Family Medicine; Visit Provider Family Medicine
DX: E16.2 Hypoglycemia, unspecified (principal); R53.83 Other fatigue
CPT/HCPCS: 36415; 82533; 83525; 84443

== ENCOUNTER → 2023-08-20 | Outpatient (CLI) | payer MEDICARE, BC, SELFPAY ==
[2023-08-20 15:52] LABS: Absolute Neutrophil Count 6.3 X10^3/uL (2.0-7.7); Basophil# 0.06 X10^3/uL; Basophil% 0.7 % (0-1); Eosinophil# 0.08 X10^3/uL; Eosinophils% 0.9 % (0-5); Hematocrit 42.1 % (37-47); Hemoglobin 13.3 g/dL (12.0-15.0); Lymphocyte % 19.4 % (19-41); Mean Corp Hgb Conc 31.6 g/dL (32-36); Mean Corpuscular Hgb 28.7 pg (27.0-32.0); Mean Corpuscular Volume 90.7 fL (81-99); Monocyte% 6.8 % (0-10); NRBC Flagged by Analyzer 0 % (0-5); Neutrophil # 6.29 X10^3/uL (2.7-7.7); Neutrophil % 71.7 % (47-70); Platelet Count 312 K/mm3 (150-450); RBC Distribution Width CV 13.7 % (11.6-14.6); RBC Distribution Width SD 45.4 fl (35.1-43.9); Red Blood Count 4.64 M/mm3 (4.2-5.4); White Blood Count 8.8 K/mm3 (4.4-11.0)
[2023-08-20 16:09] LABS: AST(SGOT) 17 U/L (15-37); Alanine Aminotransfer ALT/SGPT 21 U/L (13-56); Albumin, Serum 3.8 g/dL (3.2-5.0); Alkaline Phosphatase 73 U/L (45-117); Anion Gap 6 (5-15); BUN 23 mg/dL (7-18); BUN/Creat Ratio 23.4 RATIO (10-20); Calcium,Total 9.8 mg/dL (8.5-10.1); Chloride 106 mmol/L (98-107); Creatinine, Serum 0.98 mg/dL (0.55-1.02); EST Glomerular Filtration Rate 58 mL/min (>60); Est Glom Filt Rate - Afr Amer 70 mL/min (>60); Globulin 3.7 g/dL (2.2-4.2); Glucose 105 mg/dL (74-106); Potassium 4.2 mmol/L (3.5-5.1); Protein, Total 7.5 g/dL (6.4-8.2); Sodium Level 138 mmol/L (136-145)
== END | disposition home or self-care (01) ==
PROVIDERS: PCP Family Medicine; Referring Provider Internal Medicine Rheumatology; Visit Provider Internal Medicine Rheumatology
DX: M06.4 Inflammatory polyarthropathy (principal); Z79.899 Other long term (current) drug therapy
CPT/HCPCS: 36415; 80053; 85025

== ENCOUNTER → 2023-12-17 | Outpatient (CLI) | payer MEDICARE, BC, SELFPAY ==
--- NOTE | 2023-12-17 10:05 | RAD_ITS ---
STUDY: X-RAY - THORACIC SPINE REASON FOR EXAM: Female, 77 years old. Mid back pain TECHNIQUE: 4 view(s) of the thoracic spine were obtained. COMPARISON: 2017 FINDINGS: Normal kyphosis of the thoracic spine. There is no substantial scoliosis. There is demineralization of the thoracic spine with endplate spondylosis. There is multilevel disc space narrowing of the thoracic spine. The soft tissue structures are unremarkable. A pain catheter has been placed into the thecal sac since the previous study, leads in satisfactory position and extending to the T9 vertebral body. RAD/Thoracic Spine Min 4 Views IMPRESSION: Age consistent degenerative changes in the thoracic spine without evidence of fracture, paraspinal mass, or absent pedicle Satisfactory appearance of the neural catheter, it extends to the T9 vertebral body Electronically Signed: Howie Juarez MD at 8:33 EDT ,
== END | disposition home or self-care (01) ==
LOC: MTRAD 10:02
PROVIDERS: PCP Family Medicine; Referring Provider Clinical Nurse Specialist Adult Health; Visit Provider Clinical Nurse Specialist Adult Health
DX: Z96.82 Presence of neurostimulator (principal)
CPT/HCPCS: 72074

== ENCOUNTER → 2023-12-26 | Outpatient (CLI) | payer MEDICARE, BC, SELFPAY ==
--- NOTE | 2023-12-26 09:50 | ECHOD_ITS ---
Reason For Study: SYNCOPE/MURMUR/MVP Procedure This was a 2D Doppler, Color Flow transthoracic echocardiogram. Exam performed in department. Left Ventricle Normal size and thickness. The left ventricular ejection fraction is 65 %. Increased left atrial filling pressures. Right Ventricle Normal right ventricle. Atria The left atrium is severely enlarged. Normal right atrium. Mitral Valve Mitral valve posterior leaflet prolapse. Moderate to severe anteriorly directed mitral valve regurgitation. Tricuspid Valve Trivial tricuspid valve insufficiency. Normal pulmonary artery pressure. Aortic Valve Trisinus/trileaflet aortic valve. Pulmonic Valve The pulmonic valve is not well visualized. Great Vessels Normal sized aortic root. Pericardium/Pleural No pericardial effusion. MMode/2D Measurements & Calculations LVIDd: 5.0 cm IVSd: 0.95 cm Ao root diam: 3.5 cm LVIDs: 3.3 cm LVPWd: 1.1 cm RVDd: 2.2 cm FS: 34.6 % LAV(MOD-sp4): 89.6 ml LVAd ap4: 23.8 cm2 SV(MOD-sp4): 48.3 ml LVLd ap4: 6.7 cm EDV(MOD-sp4): 68.0 ml EDV(sp4-el): 71.6 ml LVAs ap4: 11.0 cm2 LVLs ap4: 5.2 cm ESV(MOD-sp4): 19.7 ml ESV(sp4-el): 19.5 ml EF(MOD-sp4): 71.1 % EF(sp4-el): 72.8 % SV(sp4-el): 52.1 ml LA A4 area: 24.8 cm2 LA dimension(2D): 3.5 cm RA A4 area: 12.1 cm2 TAPSE: 1.9 cm Time Measurements MV dec time: 0.25 sec Doppler Measurements & Calculations MV E max jose: 131.9 cm/sec Lat Peak E' Jose: 6.0 cm/sec Med Peak E' Jose: 6.2 cm/sec MV A max jose: 117.3 cm/sec E/E' lat: 21.9 E/E' med: 21.3 MV E/A: 1.1 MV V2 max: 135.7 cm/sec MV P1/2t max jose: 130.3 cm/sec Ao V2 max: 147.8 cm/sec MV max P.4 mmHg MV P1/2t: 65.9 msec Ao max P.7 mmHg MV V2 mean: 79.4 cm/sec Ao V2 mean: 92.8 cm/sec MV mean P.9 mmHg MV dec slope: 579.4 cm/sec2 Ao mean P.2 mmHg MV V2 VTI: 33.6 cm MVA(P1/2t): 3.3 cm2 Ao V2 VTI: 23.6 cm AV (velocity ratio): 0.80 LV V1 max: 100.9 cm/sec MR max jose: 564.4 cm/sec PA V2 max: 77.9 cm/sec LV V1 max P.1 mmHg MR max P.4 mmHg PA V2 mean: 53.4 cm/sec LV V1 mean P.2 mmHg MR mean jose: 448.1 cm/sec LV V1 mean: 66.3 cm/sec MR mean P.4 mmHg LV V1 VTI: 18.9 cm MR VTI: 148.4 cm TR max jose: 257.9 cm/sec TR max P.6 mmHg ECHO/Echo Complete Interpretation Summary The left ventricular ejection fraction is 65 %. Increased left atrial filling pressures The left atrium is severely enlarged. Mitral valve posterior leaflet prolapse. Moderate to severe anteriorly directed mitral valve regurgitation. Ordering Physician: Ricardo Reynolds Referring Physician: Ricardo Reynolds Performed By: Claudia Greene, RDCS, RVT
== END | disposition home or self-care (01) ==
LOC: CVS 09:49
PROVIDERS: PCP Family Medicine; Referring Provider Family Medicine; Visit Provider Family Medicine
DX: R55 Syncope and collapse (principal); R01.1 Cardiac murmur, unspecified
CPT/HCPCS: 93306

== ENCOUNTER → 2024-01-04 | Outpatient (CLI) | payer MEDICARE, BC, SELFPAY ==
[2024-01-04 10:35] LABS: Anion Gap 7 (5-15); BUN 21 mg/dL (7-18); Calcium,Total 9.8 mg/dL (8.5-10.1); Chloride 106 mmol/L (98-107); Creatinine, Serum 1.05 mg/dL (0.55-1.02); EST Glomerular Filtration Rate 54 mL/min (>60); Est Glom Filt Rate - Afr Amer 65 mL/min (>60); Glucose 100 mg/dL (74-106); Potassium 3.7 mmol/L (3.5-5.1); Sodium Level 140 mmol/L (136-145)
== END | disposition home or self-care (01) ==
PROVIDERS: PCP Family Medicine; Referring Provider Internal Medicine Cardiovascular Disease; Visit Provider Internal Medicine Cardiovascular Disease
DX: R01.1 Cardiac murmur, unspecified (principal); R06.00 Dyspnea, unspecified; I10 Essential (primary) hypertension; I34.1 Nonrheumatic mitral (valve) prolapse; R55 Syncope and collapse
CPT/HCPCS: 36415; 80048

== ENCOUNTER → 2024-01-07 | Outpatient (CLI) | payer MEDICARE, BC, SELFPAY ==
--- NOTE | 2024-01-07 09:27 | ECHOTEE_ITS ---
Reason For Study: MITRAL VALVE PROLAPSE Medication SRIDEVI probe 6VT-D (SN [id number]) passed without difficulty. No complications were noted. Cetacaine Topical Clay given X4 orally. Versed 1 mg given slow IVP. Fentanyl 50 mcg given slow IVP. Performed a rapid injection of agitated mix of 9 cc saline and 1cc air to assess for atrial septal defect. Left Ventricle Normal LV size. Left ventricular systolic function is normal. The left ventricular ejection fraction is 65 %. No regional wall motion abnormalities noted. Right Ventricle Normal RV size. Normal systolic function. Atria Normal atrial septum. Bubble contrast study negative for right to left interatrial shunt. The left atrium is moderately enlarged. No thrombus is detected in the left atrial appendage. Normal right atrium. Mitral Valve Posterior leaflet mitral valve prolapse. Moderately severe (3+) anteriorly directed mitral valve insufficiency. Tricuspid Valve Normal tricuspid valve. Mild tricuspid valve insufficiency. Aortic Valve Trisinus/trileaflet aortic valve. Pulmonic Valve Normal pulmonic valve. Vessels Normal aortic root. Mild atherosclerosis of the aortic arch. The pulmonary artery is normal size. Pulmonary venous flow normal. Pericardium No pericardial effusion. ECHO/Echo Transesophageal (SRIDEVI) Interpretation Summary Normal LV size. The left ventricular ejection fraction is 65 %. Left ventricular systolic function is normal. Posterior leaflet mitral valve prolapse. Moderately severe (3+) anteriorly directed mitral valve insufficiency. Ordering Physician: Kenny Alejandro Referring Physician: Ricardo Reynolds Performed By: Michelle Esparza RDCS
== END | disposition home or self-care (01) ==
LOC: CVS 09:25
PROVIDERS: PCP Family Medicine; Referring Provider Internal Medicine Cardiovascular Disease; Visit Provider Internal Medicine Cardiovascular Disease
DX: I34.1 Nonrheumatic mitral (valve) prolapse (principal)
CPT/HCPCS: 93312; 93320; 93325; J7040; A4216

== ENCOUNTER 2024-01-17 06:51 | Day surgery (SDC) | payer MEDICARE, BC, SELFPAY ==
--- NOTE | 2024-01-09 09:24 | RAD_ITS ---
EXAM: XR CHEST, 2 VIEWS CLINICAL INDICATION: pre-procedure TECHNIQUE: Frontal and lateral views of the chest. COMPARISON: 06/14/2009 and thoracic spine, 12/17/2023. FINDINGS: LUNGS AND PLEURAL SPACES: Hyperinflated lungs with interstitial prominence likely secondary to COPD. No focal pneumonia. No pneumothorax. No effusion. HEART: No significant abnormality. Cardiac silhouette not enlarged. MEDIASTINUM: Central airways and mediastinal contour are unremarkable. BONES/JOINTS: No significant abnormality. No acute fracture. SOFT TISSUES: No significant abnormality. VASCULATURE: Atherosclerosis. TUBES, LINES AND DEVICES: Spinal cord stimulator leads are identified. RAD/Chest PA and Lateral IMPRESSION: Hyperinflated lungs with interstitial prominence likely secondary to COPD. No focal pneumonia. Electronically Signed: Artis Bowles DO at 23:57 EDT ,
[2024-01-09 09:59] LABS: International Normalized Ratio 1.1; Prothrombin Time (Protime)PT. 14.5 SECONDS (11.7-14.9)
[2024-01-09 11:02] LABS: Anion Gap 7 (5-15); BUN 17 mg/dL (7-18); Calcium,Total 9.8 mg/dL (8.5-10.1); Chloride 109 mmol/L (98-107); EST Glomerular Filtration Rate 57 mL/min (>60); Est Glom Filt Rate - Afr Amer 69 mL/min (>60); Glucose 97 mg/dL (74-106); Potassium 3.7 mmol/L (3.5-5.1); Sodium Level 141 mmol/L (136-145)
[2024-01-16 08:14] VITALS: BMI 29.6
--- NOTE | 2024-01-17 08:41 | CL.D_ITS ---
Patient Name: MARTA MACHUCA Study Date: 01/17/2024 Performing: Kenny Alejandro MD Ht: 62 inches 157.48 cm : 1945 Wt: 162 lbs 73.48 kg Age: 78 Gender: female BSA: 1.75 PROCEDURE(S) PERFORMED DC01-(71920)LHC/COR/LV CLINICAL PROFILE AND INDICATIONS Indications: Valvular Disease Heart Failure: None Stress/Imaging Stress/Image Study Performed: No CAD Presentations: Symptom unlikely to be ischemic. CONCLUSIONS Mild coronary artery disease, preserved ejection fraction, moderately severe mitral regurgitation with mitral valve prolapse. RECOMMENDATIONS Surgical evaluation for mitral valve repair DESCRIPTION OF PROCEDURE The patient arrived to the procedure lab. The risks and benefits of the procedure as well as a full description of our services here and current unavailability of surgical backup were fully explained to the patient and/or their significant other prior to the catheterization. The Timeout was completed, verifying the correct patient and procedure. The patient's procedural site was prepped and draped in the usual fashion. Local anesthetic was given subcutaneously to right radial region with Lidocaine 2%. Using a modified Seldinger technique, arterial access was obtained via the right radial artery, a 6Fr sheath was inserted. Right Coronary Artery selective angiography was then performed in multiple views using a 5 Fr. 4.0 [place] catheter. Left Coronary Artery selective angiography was performed in multiple views using a 5 Fr. 4.0 [place] catheter. Left Ventriculography was performed in RODRIGUEZ projection using a 5 Fr. [place] catheter. LV to AO pullback pressures were then recorded.The arterial sheath was pulled and a TR Band was applied for hemostasis CORONARY ANGIOGRAPHY DOMINANCE: Right Dominant LEFT HEART ASSESSMENT Left Ventricular Ejection Fraction: by LV Gram 60 % Normal LV wall motion Normal Left Ventricular systolic function LEFT MAIN: Mild calcification, Less than 20% % Stenosis LEFT ANTERIOR DESCENDING ARTERY: Mild luminal irregularities less than 30% CIRCUMFLEX ARTERY: Mild luminal irregularities RAMUS: Tiny vessel with 60 to 70% proximal stenosis RIGHT CORONARY ARTERY: Mild luminal irregularities less than 30% VALVE FINDINGS: Mitral Valve Prolapse Severe Mitral Valve Insufficiency - Grade 3 COMPLICATIONS No Complications PROCEDURE MEDICATIONS Fentanyl 50 mcg IV Versed 1 mg IV Oxygen: 2 L/min via nasal cannula Aspirin (325mg) 1 Tabs PO @ 01/17/2024 07:20:33 Heparin given IA 01/17/2024 08:10:47 Verapamil 2.5mg, Ntg 100mcgs, 3000 units of Heparin given IA 01/17/2024 08:10:47 SUMMARY OF HEMODYNAMIC DATA Time AIR REST ECG 07:25:40 AO 115/68 (89) SA 08:11:19 LV 153/10, 28 08:18:08 LV 115/12, 17 08:18:14 LV 120/25, 27 08:18:58 LV 141/13, 19 08:19:14 LVp 144/20, 22 08:19:17 AOp 142/70 (99) 08:19:22 AIR REST 08:31:36 Signed By Kenny Alejandro MD On 01/17/2024 08:40:38 Kenny Alejandro MD
== END 2024-01-17 10:10 | disposition home or self-care (01) ==
PROVIDERS: Physician Assistant Medical; PCP Family Medicine; Referring Provider Internal Medicine Cardiovascular Disease; Visit Provider Internal Medicine Cardiovascular Disease
DX: I25.10 Atherosclerotic heart disease of native coronary artery without angina pectoris (principal); I34.1 Nonrheumatic mitral (valve) prolapse; R55 Syncope and collapse; K21.9 Gastro-esophageal reflux disease without esophagitis; I10 Essential (primary) hypertension; Z79.899 Other long term (current) drug therapy
CPT/HCPCS: 36415; 71046; 80048; 85610; 93458; 99152; 99153; Q9967; C1769; C1894

== ENCOUNTER 2024-01-28 05:53 | Day surgery (SDC) | payer MEDICARE, BC, SELFPAY ==
[2024-01-24 14:34] LABS: Absolute Lymphocyte Count 1.62 X10^3/uL (0.83-4.51); Absolute Neutrophil Count 6.5 X10^3/uL (2.0-7.7); Basophil# 0.04 X10^3/uL; Basophil% 0.5 % (0-1); Eosinophil# 0.09 X10^3/uL; Hematocrit 42.1 % (37-47); Hemoglobin 13.4 g/dL (12.0-15.0); Lymphocyte # 1.62 X10^3/ul (0.83-4.51); Lymphocyte % 18.5 % (19-41); Mean Corp Hgb Conc 31.8 g/dL (32-36); Mean Corpuscular Hgb 28.9 pg (27.0-32.0); Mean Corpuscular Volume 90.9 fL (81-99); Mean Platelet Vol. 11.2 fl (6.2-12.0); Monocyte# 0.49 X10^3/uL; Monocyte% 5.6 % (0-10); NRBC Flagged by Analyzer 0 % (0-5); Neutrophil # 6.48 X10^3/uL (2.7-7.7); Neutrophil % 73.9 % (47-70); Platelet Count 258 K/mm3 (150-450); RBC Distribution Width CV 13.5 % (11.6-14.6); RBC Distribution Width SD 45.2 fl (35.1-43.9); Red Blood Count 4.63 M/mm3 (4.2-5.4); White Blood Count 8.8 K/mm3 (4.4-11.0)
[2024-01-28] VITALS (16 sets, daily range): BP systolic 120–157; BP diastolic 52–74; PULSE 62–98; RESP 14–18; TEMP 36.1–37.2; O2SAT 92–99; BMI 30.2
--- OUTSIDE RECORDS SUMMARY | 2024-01-28 05:55 | XMS RPT_ITS | CCD ---
Author Organization [facility] Inform ion Partnership [facility] Care Team Providers Care Setter Helper Name Role Phone BELINDA GOETZ Attending Unavailable Unavailable Primary Care Provider Unavailabl e Allergies Allergy Classification Reported Allergen(s) Allergy Type Date of Onset Reaction(s) Facility (1 source) Codeine Drug Allergy 5 GI Upset [facility] Work Phone: (1 source) methylPREDNISolone Drug Allergy 7 Itching [facility] Work Phone: Medications Current Medications Medication Drug Class(es) Dates Sig (Normalized) Sig (Original) COMPOUNDED PRESCRIPTION (2 sources) Start: 06-22-2009 COMPOUNDED PRESCRIPTION takes otc vit d 0 06/22/2009 Active Start: 06-22-2009 COMPOUNDED PRE SCRIPTION takes otc move free as directed 0 06/22/2009 Active twice-daily diclofenac epolamine 0.013 mg/mg medicated patch (1 source) Nonsteroidal Anti-inflammatory Drug Start: 07-13-2009 diclofenac epolamine(FLECTOR 1.3 % ADHESIVE PATCH) Indications: Hip pain Apply one patch twice daily 60 1 07/13/2009 Active gabapentin 100 mg oral capsule (1 source) Anti-epileptic Agent Start: 07-27-2009 gabapentin(NEURONTIN 100 MG CAP) Take 1-2 capsules once daily 60 5 07/27/2009 Active lansoprazole 30 mg delayed release oral capsule (1 source) Proton Pump Inhibitor Start: 06-09-2011 take 1 capsule by mouth once daily lansoprazole (PREVACID) 30 mg ORAL capsule Indications: Esophageal reflux Take 1 capsule by mouth once daily. 60 capsule 4 06/09/2011 Active omega-3 fatty acids(FISH OIL 500 MG CAP) (1 source) Start: 07-07-2009 omega-3 fatty acids(FISH OIL 500 MG CAP) Take one(1) capsule daily. 0 07/07/2009 Active spironolactone 25 mg oral tablet (1 source) Aldosterone Antagonist Start: 12-20-2010 take 1 tablet by mouth once daily spironolactone 25 mg ORAL tablet Indications: Essential hypertension, benign Take 1 tablet by mouth once daily. 90 tablet 3 12/20/2010 Active valACYclovir 1000 mg oral tablet (1 source) Herpesvirus Nucleoside Analog DNA Polymerase Inhibitor, Herpes Simplex Virus Nucleoside Analog DNA Polymerase Inhibitor, Herpes Zoster Virus Nucleoside Analog DNA Polymerase Inhibitor Start: 07-07-2009 valacyclovir hcl(VALTREX 1 G TAB) Indications: Shingles Take one(1) tablet three times daily x past 7 days. 21 0 07/07/2009 Active Problems Active Problems Problem Classification Problem Date Documented Date Episodic/Chronic Disorders of lipid metabolism (1 source) Mixed hypercholesterolemia and hypertriglyceridemia; Translations: [Mixed hyperlipidemia] Onset: 06-23-19 10 06-22-2009 Chronic Esophageal disorders (2 sources) Gastroesophageal reflux disease; Translations: [Gastro-esophageal reflux disease without esophagitis] Onset: 03-09-2010-18-2023 Chronic Essential hypertension (1 source) Benign essential hypertension; Translations: [Essential (primary) hypertension] Onset: 03-09-2010-18-2023 Chronic Osteoarthritis (1 source) Degenerative joint disease involving multiple joints; Translations: [Polyosteoarthritis, unspecified] Onset: 03-09-2010-18-2023 Chronic Other gastrointestinal disorders (1 source) Irritable bowel syndrome; Translations: [Irritable bowel syndrome without diarrhea] Onset: 03-09-2010-18-2023 Chronic Past or Other Problems Problem Classification Problem Date Documented Da te Episodic/Chronic Abdominal hernia (1 source) Diaphragmatic hernia; Translations: [Diaphragmatic hernia without obstruction or gangrene] Onset: 07-13-2009 07-13-2009 Episodic Diverticulosis and diverticulitis (1 source) Diverticulosis of colon; Translations: [Diverticulosis of large intestine without perforation or abscess without bleeding] Onset: 06-26-2005 Resolved: 12-13-2006 10-18-2023 Chronic Gastritis and duodenitis (1 source) Acute gastritis; Translations: [Acute gastritis without bleeding] Onset: 07-13-2009 07-13-2009 Episodic Heart valve disorders (1 source) Mitral valve disorder; Translations: [Rheumatic mitral valve disease, unspecified] Onset: 08-10-2005 Resolved: 08-10-2005 10-18-2023 Chronic Hemorrhoids (1 source) Internal hemorrhoids; Translations: [Other hemorrhoids] Onset: 06-26-2005 Resolved: 12-13-2006 10-18-2023 Episodic Nonspecific chest pain (1 source) Chest pain; Translations: [Chest pain, unspecified] Onset: 07-13-2009 07-13-2009 Episodic Other connective tissue disease (1 source) Lateral epicondylitis; Translations: [Lateral epicondylitis, unspecified elbow] Onset: 07-12-2005 10-18-2023 Episodic Other connective tissue disease (1 source) Plantar fascial fibromatosis; Translations: [Plantar fascial fibromatosis] Onset: 07-12-2005 10-18-2023 Episodic Other connective tissue disease (1 source) Enthesopathy of ankle AND/OR tarsus; Translations: [Other enthesopathy of unspecified foot and ankle] Onset: 09-21-2006 10-18-2023 Episodic Other gastrointestinal disorders (1 source) Diarrhea; Translations: [Diarrhea, unspecified] Onset: 06-26-2005 Resolved: 12-13-2006 10-18-2023 Episodic Sprains and strains (1 source) Sprain of ankle; Translations: [Sprain of unspecified ligament of unspecified ankle, initial encounter] Onset: 09-25-2006 10-18-2023 Episodic Syncope (1 source) Syncope and collapse; Translations: [Syncope and collapse] Onset: 08-10-2005 Resolved: 01-11-2016 01-11-2016 Episodic Results Test Name Value Interpretation Reference Range Reilly Brooks 01-18-2024 CHAIM Telephone ([id number]) HILDA MULLINS ([id number]) 1945 F Date Time Provider Department 01/18/24 JEREMIAS TANNER During your visit today, we recorded the following information about you: Eloisa Mahmood 01/18/2024 11:56 AM Signed Referral received from [facility] for Dr. Tanner. Fax was sent to [facility] for images. Referral from [facility]/Dr. Alejandro #[phone] - Non-rheumatic mitral prolapse severe and insufficiency Allergies As of Date: 01/18/2024 Noted Allergy Reaction CODEINE 02/13/2005 8 - GI Upset MEDROL DOSE PACK (METHYLPREDNISOL*2006 9 - Itching Comments: upper arms and chest redness and itching, and chest heaviness Date Reviewed: 01/10/2010 Reviewed by: Yolette Goetz Lpn - Fully Assessed Prescriptions as of 01/18/2024 - lansoprazole (PREVACID) 30 mg ORAL capsule Take 1 capsule by mouth once daily. - spironolactone 25 mg ORAL tablet Take 1 tablet by mouth once daily. - gabapentin(NEURONTIN 100 MG CAP) Take 1-2 capsules once daily - diclofenac epolamine(FLECTOR 1.3 % ADHESIVE PATCH) Apply one patch twice daily - omega-3 fatty acids(FISH OIL 500 MG CAP) Take one(1) capsule daily. - valacyclovir hcl(VALTREX 1 G TAB) Take one(1) tablet three times daily x past 7 days. - COMPOUNDED PRESCRIPTION takes otc vit d - COMPOUNDED PRESCRIPTION takes otc move free as directed Problem List As Of Date 01/18/2024 Noted Resolved BENIGN HYPERTENSION [I10] 03/09/2005 GENERAL OSTEOARTHROSIS [M15.9] 03/09/2005 IRRITABLE COLON [K58.9] 03/09/2005 ESOPHAGEAL REFLUX [K21.9] 03/09/2005 DIARRHEA NOS [R19.7] 06/26/2005 12/13/2006 DIVERTICULOSIS OF COLON W/O BLEED [K57.30] 06/26/2005 12/13/2006 INT HEMORRHOID W/O COMPL [K64.8] 06/26/2005 12/13/2006 LATERAL EPICONDYLITIS [M77.10] 07/12/2005 PLANTAR FIBROMATOSIS [M72.2] 07/12/2005 Syncope and collapse [R55] 08/10/2005 01/11/2016 MITRAL VALVE DIS NEC/NOS [I05.9] 08/10/2005 08/10/2005 ANKLE ENTHESOPATHY NEC [M77.50] 09/21/2006 SPRAIN OF ANKLE NOS [S93.409A] 09/25/2006 Elevated Triglycerides with High Cholesterol [E*06/22/2009 Unspecified Chest Pain [R07.9] 07/13/2009 Stricture and Stenosis of Esophagus [K22.2] 07/13/2009 Acute Gastritis without Mention of Hemorrhage [*07/13/2009 Diaphragmatic Hernia without Mention of Obstruc*07/13/2009 Encounter Status:Closed by ELOISA MAHMOOD on 01/18/24 [facility] Encounters Encounter Date Encounter Type Care Provider Facility Start: 01-18-2024 End: 01-18-2024 Telephone encounter Jeremias Tanner MD Work Phone: [facility] Start: 08-26-2020 ambulatory BELINDA GOETZ [facility] Ambulatory Plan of Treatment Date Care Activity Detail Author Start: 12-09-2023 Covid-19 Vaccine ( season) Covid-19 Vaccine ( season) [facility] Start: 12-09-2023 Influenza vaccination Influenza Vacc ine (#1) [facility] Start: 04-09-2023 Advance Directive Discussion Advance Directive Discussion [facility] Start: 12-20-2018 RSV Vaccine (1 - 1-d ose 75+ series) RSV Vaccine (1 - 1-dose 75+ series) [facility] Start: 05-14-2011 Diabetes Screening Diabetes Screenin g [facility] Start: 12-20-2008 Pneumococcal Vaccine : 65+ (1 of 1 - PCV) Pneumococcal Vaccine: 65+ (1 of 1 - PCV) [facility] Start: 04-10-1999 Urine microalbumin profile DTaP,Tdap,Td Vaccine (1 - Tdap) [facility] Start: 12-20-1993 Shingrix Vaccine (1 of 2) Shingrix V accine (1 of 2) [facility] Start: 12-20-1961 Anxiety Screening Anxiety Screening [facility] Start: 12-20-1961 Depression Screening Depression Scre ening [facility] Immunizations Immunization Date Immunization Notes Care Provider Fa cility 04-09-1999 tetanus and diphther ia toxoids, adsorbed, preservative free, for adult use (2 Lf of tetanus toxoid and 2 Lf of diphtheria toxoid) Jeremias Tanner MD Work Phone: [facility] Payers Date Payer Category Payer Unknown [employer] DICARE SUPPLEMENT [id number] 2016-Present [phone] [address] [place] [address] Indemnity [id number] 2008 Medicare MEDICARE MEDICAR E A AND B [id number] 2008-Present [phone] [address] [address] [place] [address] Medicare [id number] Social History Date Type Detail Facility Tobacco smoking stat [facility] Never smoked tobacco [facility] Start: 11-23-2021 Alcoholic beverage intake Curr ent drinker of alcohol (finding) [facility] Start: 1945 Sex assigned at Not on file [facility] Gender identity Not on file [facility] in Telephone encounter Note 01-18-2024 Telephone Encounter - Eloisa Mahmood - 01/18/2024 11:51 AM EDT Note Date & Type Note Facility 01-18-2024 Telephone encount er Note Referral received from [facility] for Dr. Tanner. Fax was sent to [facility] for images. Referral from [facility]/Dr. Alejandro #[phone] - Non-rheumatic mitral prolapse severe and insufficiency [facility] Note 01-18-2024 Telephone Encounter - Eloisa Mahmood - 01/18/2024 11:51 AM EDT Note Date & Type Note Facility 01-18-2024 Miscellaneous Notes Formattin g of this note might be different from the original. Referral received from [facility] for Dr. Tanner. Fax was sent to [facility] for images. Referral from [facility]/Dr. Alejandro #[phone] - Non-rheumatic mitral prolapse severe and insufficiency documented in this encounter [facility] Summary Purpose Family History No Family History Records FoundNo Family History Records Found Advance Directives No Advanced Directives Records FoundNo Advanced Directives Records Found Additional Source Comments INFORMATION SOURCE (unrecogn ized section and content) DATE CREATED AUTHOR 09/02/2020 [facility] DATE CREATED AUTHOR AUTHOR'S ORGANIZ ATION 01/21/2024 [facility] Source Comments (unrecognize d section and content) In the event this informatio n is protected by the Federal Confidentiality of Alcohol and Drug Abuse Patient Records regulations: The Federal rules restrict any use of the information to criminally investigate or prosecute any alcohol or drug abuse patient.[facility] FOR RECORDS PERTAINING TO PATIENTS WHO ARE OR HAVE BEEN ENROLLED IN A CHEMICAL DEPENDENCY/SUBSTANCEABUSE PROGRAM, SOME INFORMATION MAY BE OMITTED. This clinical summary was aggregated from multiple sources. Caution should be exercised in using it in the provision of clinical care. This summary normalizes information from multiple sources, and as a consequence, information in this document may materially change the coding, format and clinical context of patient data. In addition, data may be omitted in some cases. CLINICAL DECISIONS SHOULD BE BASED ON THE PRIMARY CLINICAL RECORDS. [facility]. provides no warranty or guarantee of the accuracy or completeness of information in this document.
--- NOTE | 2024-01-28 06:09 | PCM.PRE.AN2 ---
ASA Classification* ASA Classification ASA Classification: 2 Assessment & Plan Anesthesia* Anesthesia Assessment Anesthesia Assessment: Discussed sedation and/or anesthesia options, risks, benefits, and alternatives with patient/parents/legal guardian/POA. Questions invited. The patient/parents/legal guardian/POA seems to understand and agrees to proceed with anesthesia plan. Reviewed the physical assessment, medical history, allergy history and patient home medications list prior to surgery/procedure/anesthetic and documented any changes. Performed airway and anesthesia risk assessments. Anesthesia Type Anesthesia Type: General (see written pre anesthesia record for full assessment) Anesthesia Focused Assessment* Airway Assessment Mouth opens: >3 cm Mallampati Score: II Focused Labs Anesthesia Preop lab: CBC WBC 8.8 K/mm3 (4.4-11.0) 01/24/24 14:14 RBC 4.63 M/mm3 (4.2-5.4) 01/24/24 14:14 Hgb 13.4 g/dL (12.0-15.0) 01/24/24 14:14 Hct 42.1 % (37-47) 01/24/24 14:14 Plt Count 258 K/mm3 (150-450) 01/24/24 14:14 CHEMISTRY Potassium 3.7 mmol/L (3.5-5.1) 01/09/24 09:11 Sodium 141 mmol/L (136-145) 01/09/24 09:11 Magnesium 2.2 mg/dL (1.6-2.6) 06/14/20 09:37 BUN 17 mg/dL (7-18) 01/09/24 09:11 Creatinine 1.00 mg/dL (0.55-1.02) 01/09/24 09:11 Glucose 97 mg/dL (74-106) 01/09/24 09:11 POC Glucose 96 mg/dL (70-110) 06/17/20 09:45 TSH 1.08 uIU/mL (0.358-3.74) 05/31/23 10:45 COAG PT 14.5 SECONDS (11.7-14.9) 01/09/24 09:11 Pre-Assessment Diagnosis/Proposed Procedure Planned Operative Procedure(s): ROBOTIC RIGHT INGUINAL HERNIA WITH MESH Anesthesia History Anesthesia History - auto slip cover installer: Anesthesia History - auto slip cover installer Hx Hospitalization No 01/24/24 13:13 Any Problems With Anesthesia No 01/24/24 13:13 Cholinesterase deficiency No 01/24/24 13:13 You/Your Family Experience No 01/24/24 13:13 fever (hyperthermia) with Relationship Recent Exposure to Contagious No 06/30/20 12:03 Disease Does patient have nerve Yes: PATIENT INSTRUCTED TO 01/24/24 13:13 stimulator TURN OFF DOS Patient instructed to have device shut off --Does patient have Pacemaker or ICD? When Was Last Pacemaker Check QUESTION #4 FULL TEXT: You/Your Family Experience fever (hyperthermia) with Anesthesia Last Oral Intake Last Oral intake: Last Oral Intake NPO since Meds taken in AM with sips of water? Meds patient instructed to take am of surgery PONV PONV - auto slip cover installer: PONV - auto slip cover installer Female Yes 01/24/24 13:13 HX of Motion Sickness Yes 01/24/24 13:13 HX of N/V After Surgery No 01/24/24 13:13 Non-Smoker Yes 01/24/24 13:13 Duration of Surgery greater Yes 01/24/24 13:13 than 60 minutes Number of Risk Factors 4 01/24/24 13:13 PONV Score Severe Risk 01/24/24 13:13 Height & Weight Height & Weight: Anesthesia: Height & Weight Height 5 ft 2 in 01/17/24 07:22 Respiratory Assessment Respiratory Assessment - auto slip cover installer: Respiratory Tract Infection Hx - auto slip cover installer Hx Respiratory Tract Infection No 01/24/24 13:13 STOP Sleep Apnea STOP Sleep Apnea - auto slip cover installer: STOP Sleep Apnea - auto slip cover installer Hx Hypertension Yes: CONTROLLED WITH MED 01/24/24 13:13 Hx Sleep Apnea No 01/24/24 13:13 CPAP No 06/30/20 12:03 BIPAP No 06/30/20 12:03 Do you snore loudly (louder No 01/24/24 13:13 than talking or can be heard Do you often feel tired/ Yes 01/24/24 13:13 fatigued/ sleepy during daytime? Has anyone observed you stop No 01/24/24 13:13 breathing during sleep? STOP Results Positive 01/24/24 13:13 QUESTION #5 FULL TEXT : Do you snore loudly (louder than talking or can be heard through closed doors)? 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 Specify any problems Hx of Preganancy in last 3 No 01/24/24 13:13 Months Nurse Filling Out Transfusion DSCHRIBER 01/24/24 13:13 & Questions: Date: 01/24/24 01/24/24 13:13 Time: 13:14 01/24/24 13:13 Patient unable to answer at this time (ie. confused, unrespo /Reproduction History /Reproductive History - auto slip cover installer: /Reproductive Hx- auto slip cover installer Hx Now No 01/24/24 13:13 Gestational Age (in weeks): EDC: Hx Hx Para Hx Section SAB No 01/24/24 13:13 Active Medications Active Medications: Current Medications Generic Name Dose Route Start Last Admin Trade Name Freq PRN Reason Stop Dose Admin Cefazolin Sodium 2 gm/ N/A 20 mls @ 400 mls/hr 01/28/24 11:30 IV 01/28/24 11:32 PREOP ONE Lactated Ringer's 1,000 mls @ 15 mls/hr 01/28/24 06:15 IV 02/02/24 19:34 .Q48H [facility] Protocol PFSH Medical History Wears hearing aid Wears glasses Post-menopausal Anxiety History of steroid therapy Back pain Blackout Difficulty swallowing History of hiatal hernia History of ulceration Asthma Shortness of breath on exertion Non-smoker Leg cramps History of pain when walking History of echocardiogram History of transesophageal echocardiography (SRIDEVI) Cardiology follow-up encounter Sacral nerve stimulator present Dyspnea Hypoglycemia Vestibular migraine OAB (overactive bladder) Vertigo Vitamin D deficiency GERD (gastroesophageal reflux disease) Hiatal hernia Solitary kidney, acquired Mitral valve prolapse Cardiac murmur Syncope and collapse Hypertension Arthritis Home Medications ?Medication ?Instructions ?Recorded ?Last Taken ?Type cholecalciferol (vitamin D3) 25 1,000 unit PO DAILY 08/18/13 06/05/20 History mcg (1,000 unit) capsule pantoprazole 20 mg tablet,delayed 20 mg PO DAILY 01/05/22 Unknown History release (Protonix) clobetasol 0.05 % topical ointment 1 applic topical QHS PRN it 01/02/24 Unknown History glucosam 750 mg-chondroi 100 1 tab PO DAILY 01/02/24 Unknown History mg-hyalur 1.65 mg-CF borate 108 mg tablet (Move Free POLYBONA) lisinopril 20 mg tablet 20 mg PO QDAY #90 tabs 01/02/24 Unknown Rx Allergy/AdvReac Type Severity Reaction Status Date / Time omeprazole Allergy Intermediate Vomiting Verified 01/24/24 13:10 Sulfa (Sulfonamide Allergy Mild Itching Verified 01/09/24 08:31 Antibiotics) codeine Allergy Vomiting Verified 01/09/24 08:31 methylprednisolone (From AdvReac Severe Itching Verified 01/09/24 08:31 Medrol) Family History Aunt Breast cancer Mother Pancreatic cancer Brother Pancreatic cancer Cancer of blood vessel Surgical History History of cardiac catheterization Hx of right cataract extraction Hx of left cataract extraction History of esophagogastroduodenoscopy (EGD) Hx of colonoscopy History of back surgery Hx of cholecystectomy Total knee replacement status History of hysterectomy History of kidney surgery Social History Smoking Status: Never smoker alcohol intake: never substance use type: does not use what type of physical activity do you participate in: walking seatbelt use: always do you feel safe at home: Yes additional social history: patient is retired from [employer] after 41 years [employer]- works at [employer] [facility] Review of Systems (Anesthesia) ROS Narrative System reviewed and no additional complaints, except as documented.
[2024-01-28] MEDS: Lactated Ringers 1,000 ML 15 ML IV ×2 (06:49→10:13)
--- NOTE | 2024-01-28 07:00 | PCM.HP.BLA ---
History and Physical Date of Admission: 01/28/24 Intake Vital Signs 08/03/2314:45 01/02/2412:54 01/09/2408:30 Height 5 ft 2 in 5 ft 2 in 5 ft 2 in Weight: 161 lb BMI 29.4 BP 159/81 H Blood Pressure Location Rt brachial Position Sitting Respiration 17 Pulse 75 Pulse Source Monitor Pulse Oximetry (%) 9 Oxygen Delivery Method room air Intake Visit Reasons: Hernia Chief Complaint: hernia Is patient in pain?: Yes Allergies omeprazole Allergy (Intermediate, Verified 01/24/24 13:10) VomitingSulfa (Sulfonamide Antibiotics) Allergy (Mild, Verified 01/09/24 08:31) Itchingcodeine Allergy (Verified 01/09/24 08:31) Vomitingmethylprednisolone (From Medrol) Adverse Reaction (Severe, Verified 01/09/24 08:31) Itching Medications ?Medication ?Instructions ?Recorded ?Confirmed ?Type cholecalciferol (vitamin D3) 25 1,000 unit PO DAILY 08/18/13 01/28/24 History mcg (1,000 unit) capsule pantoprazole 20 mg tablet,delayed 20 mg PO DAILY 01/05/22 01/28/24 History release (Protonix) clobetasol 0.05 % topical ointment 1 applic topical QHS PRN it 01/02/24 01/28/24 History glucosam 750 mg-chondroi 100 1 tab PO DAILY 01/02/24 01/28/24 History mg-hyalur 1.65 mg-CF borate 108 mg tablet (Applifier) lisinopril 20 mg tablet 20 mg PO QDAY #90 tabs 01/02/24 01/28/24 Rx Have you fallen in the past year?: No PFSH Medical History Wears hearing aid Wears glasses Post-menopausal Anxiety History of steroid therapy Back pain Blackout Difficulty swallowing History of hiatal hernia History of ulceration Asthma Shortness of breath on exertion Non-smoker Leg cramps History of pain when walking History of echocardiogram History of transesophageal echocardiography (SRIDEVI) Cardiology follow-up encounter Sacral nerve stimulator present Dyspnea Hypoglycemia Vestibular migraine OAB (overactive bladder) Vertigo Vitamin D deficiency GERD (gastroesophageal reflux disease) Hiatal hernia Solitary kidney, acquired Mitral valve prolapse Cardiac murmur Syncope and collapse Hypertension Arthritis Surgical History History of cardiac catheterization Hx of right cataract extraction Hx of left cataract extraction History of esophagogastroduodenoscopy (EGD) Hx of colonoscopy History of back surgery Hx of cholecystectomy Total knee replacement status History of hysterectomy History of kidney surgery Family History Aunt Breast cancerMother Pancreatic cancerBrother Pancreatic cancer Cancer of blood vessel Social History Smoking Status: Never smoker alcohol intake: never substance use type: does not use what type of physical activity do you participate in: walking seatbelt use: always do you feel safe at home: Yes additional social history: patient is retired from [employer] after 41 years [employer]ne- works at [employer] HPI HPI HPI: Patient is an 78-year-old female who presents with right inguinal hernia that is bothering her. She said the pain is radiating up the right groin. ROS General General: Yes fatigue; No weight change, appetite, colon cancer, breast cancer or weakness HEENT HEENT: No difficulty swallowing, eye injury, eye surgery, swollen glands or hoarseness Endo Endocrine: No thyroid disease, diabetes mellitus, thyroid cancer, Hair loss, heat intolerance or cold intolerance Skin Skin: No rash or changing moles Musc Musculoskeletal: Yes back problems and arthritis; No rheumatoid arthritis, gout or joint pain Cardio Cardiovascular: Yes murmur and high blood pressure; No pacemaker, heart disease, atrial fibrillation, heart attack, heart stent, palpitations, shortness of breat with exertion or chest pain Psych Psychiatric: No depression, anxiety or hearing voices Resp Respiratory: No shortness of breath, No sleep apnea, No cough, No COPD, No asthma, No emphysema and No wheezing Gastro Gastrointestinal: Yes abdominal pain, No nausea or vomiting, No diarrhea, No constipation, No blood in stool, Yes acid reflux, No hemorrhoids, No ulcers, No gallbladder problem and No black,tarry stools Umair Hematologic: No blood thinners, No blood disorders, No bleeding, No anemia and No blood clots Neuro Neurologic: No system reviewed and no additional complaints, except as documented, No as per HPI, No abnormal gait, No abnormal hearing, No abnormal movements, No abnormal speech, No behavioral changes, No burning sensations, No confusion, No convulsions, No disequilibrium, No dizziness, No localized weakness, No frequent falls, No headache(s), No lack of coordination, No loss of vision, No memory loss, No numbness, No other visual disturbances, No radicular pain, No restless legs, No sensory deficit, No syncope, No tingling, No tremor(s), No weakness and No other Exam Const General: cooperative Orientation: alert and oriented x3 HENMT Head: normal to inspection Neck Neck: normal visual inspection and full ROM Chest Chest palpation & inspection: normal inspection of the chest Resp Effort & Inspection: normal respiratory effort Auscultation: clear to auscultation bilaterally Cardio Rate: regular rate Rhythm: regular rhythm GI Inspection: non-distended Palpation: soft, hernia indirect inguinal on the right and nontender Skin General: no rashes or lesions noted Neuro General: patient alert and patient oriented x3 Extrem General: full ROM Psych Appearance: grossly normal Mental Status: mental status grossly normal Assessment and Plan Assessment and Plan (1) Inguinal hernia: Status: Acute Qualifiers: Laterality: unilateral Obstruction and gangrene presence: without obstruction or gangrene Recurrence: non-recurrent Qualified Code(s): K40.90 - Unilateral inguinal hernia, without obstruction or gangrene, not specified as recurrent Plan: Patient has a right inguinal hernia which is reducible. It is causing her problems and pain and a lot of bulging. I discussed robotic assisted laparoscopic right inguinal hernia repair with mesh with her. She is seeing cardiology first to get clearance. I discussed the risks including but not limited to bleeding, infection, injury other organ such as the bowel, bladder, ureter or blood supply to the leg. Patient understands all the risks and is willing to proceed. Timur Simpson MD Pager: [facility] [address] [place] [address], [address] [place] [address] Office: I have examined the patient and the H&P has been reviewed. There are no clinical changes since date of exam.
[2024-01-28] MEDS: Cefazolin 2 GM in Syringe IV (07:19)
[2024-01-28] MEDS: Bupivacaine Mpf 0.5% 30 ML VIAL (08:21)
--- NOTE | 2024-01-28 08:36 | PCM.POST.ANE ---
Anesthesia: Postop Eval I Current Vital Signs Temperature: 97.7 F Pulse Rate: 98 Blood Pressure: 142/74 Respiratory Rate: 16 Pulse Ox: 98 Oxygen Delivery Method: Simple Mask Oxygen Flow Rate (L/min): 6 Assessment Airway patent: Yes Spontaneous unlabored respirations: Yes Mental status: Awake and Calm nausea: No Vomiting: No Anesthesia Complication: No Fluid Hydration Crystalloid volume administer (ml): 750 Total IV fluid infused: 750 Progress Note Anesthesia document: Postop Eval 1 completed: Yes
--- NOTE | 2024-01-28 08:41 | PCM.OPRPT ---
Report of Operation Date of Procedure: 01/28/24 Pre-Operative Diagnosis: Right inguinal hernia Post-Operative Diagnosis: Same Surgery/Procedure Performed:: Robotic assisted laparoscopic right inguinal hernia repair with mesh Type of Anesthesia: General/Regional Specimen's removed: None Estimated Blood Loss (mL): 10 Description of Procedure: Patient was brought back to the operative room and general anesthesia was induced. The abdomen was prepped and draped in usual sterile fashion. A midline incision was made superior to the umbilicus and deepened to the fascia. The fascia was elevated and a Veress needle was placed into the abdomen and a drop test was performed. Abdomen is insufflated to 15 mmHg and the Veress needle was removed. A port was placed into the abdomen. The abdomen was inspected for injuries and there were none. Patient was then placed in steep Trendelenburg position. Under direct visualization an 8 mm port was placed in the right lateral abdomen as well as left lateral abdomen and the robot was docked. An incision was made in the right lower quadrant peritoneum using electrocautery scissors. Dissection was carried inferiorly until the hernia sac was identified and reduced. Dissection was carried toward the indirect space and the round ligament was identified and clipped and divided. After dissection was complete a ProGrip mesh was placed over the hernia with good overlap. Next the peritoneum was reapproximated over the mesh using running 3-0 V lock suture. This completely covered the mesh. Next the robot was undocked and the instruments were removed. The ports were then removed and the abdomen was allowed to desufflate. The skin incisions were injected with local anesthetic and then closed with interrupted 4-0 Monocryl suture. Steri-Strips and bandages were applied. Patient was brought to PACU in stable condition and tolerated the procedure well. Grafts/Implants Used: ProGrip mesh in the right groin Admit VTE Documentation VTE Mechan Device Prophylaxis: SCD's
--- NOTE | 2024-01-28 08:46 | POSTOPAN2_ITS ---
Anesthesia Postop Eval I Sum Postop Eval Completion status Anesthesia document: Postop Eval 1 completed: Yes Anesthesia Postop Eval I Summary Anesthesia Postop Eval I Summary: Anesthesia Postop Eval I: Assessment Summary Airway patent Yes 01/28/24 08:38 ELEMENTARY EDUCATION [email or web address] Spontaneous unlabored Yes 01/28/24 08:38 ELEMENTARY EDUCATION [email or web address] respirations Mental status Awake,Calm 01/28/24 08:38 ELEMENTARY EDUCATION [email or web address] nausea No 01/28/24 08:38 ELEMENTARY EDUCATION [email or web address] Vomiting No 01/28/24 08:38 ELEMENTARY EDUCATION TEACHERDILLAN Anesthesia Postop Eval I: Fluid Summary Crystalloid volume administer 750 01/28/24 08:38 ELEMENTARY EDUCATION [email or web address].[email or web address] (ml) Colloids volume administered ( ml) Blood Product volume administered (ml) Total IV fluid infused 750 01/28/24 08:38 ELEMENTARY EDUCATION [email or web address] Anesthesia Postop Eval I: Summary Notes Anesthesia Complication No 01/28/24 08:38 JEFFREY Anesthesia Complication Comment: Post-operative progress note Anesthesia: Postop Eval II Evaluation Mental status: Awake Pain Level: 0 nausea: No Vomiting: No
--- NOTE | 2024-01-28 08:46 | PCM.POSTANE2 ---
Anesthesia Postop Eval I Sum Postop Eval Completion status Anesthesia document: Postop Eval 1 completed: Yes Anesthesia Postop Eval I Summary Anesthesia Postop Eval I Summary: Anesthesia Postop Eval I: Assessment Summary Airway patent Yes 01/28/24 08:38 [email or web address] [email or web address] Spontaneous unlabored Yes 01/28/24 08:38 AEROPLANE [email or web address] respirations Mental status Awake,Calm 01/28/24 08:38 AEROPLANE [email or web address] nausea No 01/28/24 08:38 AEROPLANE [email or web address] Vomiting No 01/28/24 08:38 AEROPLANE PILOTDILLAN Anesthesia Postop Eval I: Fluid Summary Crystalloid volume administer 750 01/28/24 08:38 AEROPLANE [email or web address] (ml) Colloids volume administered ( ml) Blood Product volume administered (ml) Total IV fluid infused 750 01/28/24 08:38 AEROPLANE [email or web address] Anesthesia Postop Eval I: Summary Notes Anesthesia Complication No 01/28/24 08:38 JEFFREY Anesthesia Complication Comment: Post-operative progress note Anesthesia: Postop Eval II Evaluation Mental status: Awake Pain Level: 0 nausea: No Vomiting: No
--- NOTE | 2024-01-28 08:56 | EX.PCM.DISCH ---
Discharge Instructions Procedure Hernia Diet Discharge Diet: Light diet - advance as tolerated Activity Discharge Activity: May Not Drive (for 2-3 days or while taking narcotic pain meds.) and May Shower (with the bandage in place 1-2 days after surgery.) Lifting Restrictions: 20 pounds for 4 weeks. Additional Activity Instructions:: Climbing stairs is fine, walking is encouraged. Sitting in bed may be uncomfortable. Sitting up using your lateral muscles (sitting up sideways) is usually more comfortable. Do not drive, work heavy equipment of sign legal documents for 24 hours. If your hernia repair was an inguinal repair, an ice pack can provide more comfort. Pain medications may cause nausea, you should typically eat light foods as you take your pain medications. Pain medications may also cause constipation. If you have difficulty with this, discuss with your doctor. Alternate ibuprofen and Tylenol for pain control, oxycodone for breakthrough pain. Dressing / Incision Call your doctor if your incision/area has: Continuous Slow Oozing, Sudden Increased Bleeding, Increased Pain/ Swelling, Increased Redness and Foul Smelling Discharge Call your doctor if you observe: Fever of 101 or Higher Suture Line Care: Avoid Pulling/Pushing and Avoid Pinching/Bending Remove Dressing in: 2 days (Remove clear bandages in 2 days, remove Steri-Strips in 7 to 10 days.) Follow Up Care Please Follow Up With: Timur Simpson MD When: Please call to schedule 2 week follow up appointment. [phone] Test Results: Test results from this visit will be discussed in further detail at your follow-up appointment, if applicable. Discharge Plan Admission Attending Provider: Timur Simpson Primary Care Provider: Ricardo Reynolds Instructions Print Language: Citizen Of The [place] Discharge Orders/Prescriptions Prescriptions: New oxycodone 5 mg Tablet 5 - 10 mg PO Q4H PRN PRN (Reason: Pain Score 4-10) 5 Days Qty: 10 0RF No Action pantoprazole [Protonix] 20 mg tablet,delayed release (DR/EC) 20 mg PO DAILY [facility] 750 mg-100 mg- 1.65 mg-108 mg tablet 1 tab PO DAILY clobetasol 0.05 % ointment 1 applic topical QHS PRN (Reason: it) Rx Instructions: apply thin layer; massage gently into affected area nightly x 6 weeks then 1-2x weekly lisinopril 20 mg tablet 20 mg PO QDAY Qty: 90 3RF cholecalciferol (vitamin D3) 1,000 UNIT capsule 1,000 unit PO DAILY Patient Comments: supplement Referrals / Follow Up: Ricardo Reynolds DO [Primary Care Provider] - Disposition Disposition (needs filled in before D/C Order can be placed): Home, Self Care
[2024-01-28] MEDS: Acetaminophen 325 MG Tablet 650 MG PO (11:13)
== END 2024-01-28 13:39 | disposition home or self-care (01) ==
LOC: SDC 05:53 → AC 05:53
PROVIDERS: Physician Assistant Medical; PCP Family Medicine; Referring Provider Surgery; Visit Provider Surgery
PROC: (CPT 49650; principal; 2024-01-28 07:10)
DX: K40.90 Unilateral inguinal hernia, without obstruction or gangrene, not specified as recurrent (principal); I10 Essential (primary) hypertension; Z79.899 Other long term (current) drug therapy; J45.909 Unspecified asthma, uncomplicated; K21.9 Gastro-esophageal reflux disease without esophagitis
CPT/HCPCS: 49650; S2900; 00840; 36415; 85025; J7120; J2405

== ENCOUNTER → 2024-02-06 | Outpatient (CLI) | payer MEDICARE, BC, SELFPAY ==
[2024-02-06 13:33] LABS: Absolute Neutrophil Count 5.6 X10^3/uL (2.0-7.7); Basophil% 1.1 % (0-1); Eosinophil# 0.31 X10^3/uL; Eosinophils% 3.6 % (0-5); Hematocrit 40.4 % (37-47); Hemoglobin 12.8 g/dL (12.0-15.0); Lymphocyte % 21.8 % (19-41); Mean Corp Hgb Conc 31.7 g/dL (32-36); Mean Corpuscular Hgb 29.4 pg (27.0-32.0); Mean Corpuscular Volume 92.9 fL (81-99); Mean Platelet Vol. 11.8 fl (6.2-12.0); Monocyte# 0.78 X10^3/uL; NRBC Flagged by Analyzer 0 % (0-5); Neutrophil # 5.57 X10^3/uL (2.7-7.7); Platelet Count 307 K/mm3 (150-450); RBC Distribution Width CV 13.6 % (11.6-14.6); RBC Distribution Width SD 46.5 fl (35.1-43.9); Red Blood Count 4.35 M/mm3 (4.2-5.4); White Blood Count 8.7 K/mm3 (4.4-11.0)
[2024-02-06 14:07] LABS: AST(SGOT) 16 U/L (15-37); Alanine Aminotransfer ALT/SGPT 16 U/L (13-56); Albumin, Serum 3.5 g/dL (3.2-5.0); Alkaline Phosphatase 69 U/L (45-117); Anion Gap 6 (5-15); BUN 17 mg/dL (7-18); BUN/Creat Ratio 17.4 RATIO (10-20); Calcium,Total 9.6 mg/dL (8.5-10.1); Chloride 107 mmol/L (98-107); Creatinine, Serum 0.98 mg/dL (0.55-1.02); EST Glomerular Filtration Rate 58 mL/min (>60); Est Glom Filt Rate - Afr Amer 70 mL/min (>60); Globulin 3.6 g/dL (2.2-4.2); Glucose 82 mg/dL (74-106); Potassium 4.2 mmol/L (3.5-5.1); Protein, Total 7.1 g/dL (6.4-8.2); Sodium Level 140 mmol/L (136-145)
== END | disposition home or self-care (01) ==
LOC: LAB 12:32
PROVIDERS: PCP Family Medicine; Referring Provider Internal Medicine Rheumatology; Visit Provider Internal Medicine Rheumatology
DX: M06.4 Inflammatory polyarthropathy (principal); Z79.899 Other long term (current) drug therapy
CPT/HCPCS: 36415; 80053; 85025

== ENCOUNTER → 2024-04-10 | Outpatient (CLI) | payer MEDICARE, BC, SELFPAY ==
--- NOTE | 2024-04-10 13:32 | RAD_ITS ---
INDICATION: post op OPEN HEART SURGERY 2 WEEKS AGO EXAMINATION/TECHNIQUE: X-RAY - XR Chest 2 Views COMPARISON: Prior study dated: 01/09/2024 FINDINGS: LINES/DEVICES: None. LUNGS: No consolidation. Small bilateral pleural effusions. No pneumothorax. MEDIASTINUM: Aorta is atherosclerotic. CARDIAC SILHOUETTE: Not enlarged. Sternal wires. BONES AND SOFT TISSUES: No acute abnormalities. Electrodes overlying the spine unchanged. RAD/Chest PA and Lateral IMPRESSION: Small bilateral pleural effusions. Poststernotomy. Electronically Signed: Sushma Castañeda MD at 5:14 EST ,
[2024-04-10 14:18] LABS: Absolute Neutrophil Count 7.1 X10^3/uL (2.0-7.7); Basophil# 0.11 X10^3/uL; Basophil% 1.1 % (0-1); Eosinophil# 0.33 X10^3/uL; Eosinophils% 3.3 % (0-5); Hematocrit 37.4 % (37-47); Hemoglobin 11.5 g/dL (12.0-15.0); Lymphocyte % 14.9 % (19-41); Mean Corp Hgb Conc 30.7 g/dL (32-36); Mean Corpuscular Hgb 28.7 pg (27.0-32.0); Mean Corpuscular Volume 93.3 fL (81-99); Monocyte# 1.03 X10^3/uL; Monocyte% 10.2 % (0-10); NRBC Flagged by Analyzer 0 % (0-5); Neutrophil # 7.07 X10^3/uL (2.7-7.7); Platelet Count 443 K/mm3 (150-450); RBC Distribution Width CV 14.4 % (11.6-14.6); RBC Distribution Width SD 48.5 fl (35.1-43.9); Red Blood Count 4.01 M/mm3 (4.2-5.4); White Blood Count 10.1 K/mm3 (4.4-11.0)
[2024-04-10 14:49] LABS: Anion Gap 7 (5-15); BUN 20 mg/dL (7-18); BUN/Creat Ratio 16.5 RATIO (10-20); Calcium,Total 9.7 mg/dL (8.5-10.1); Chloride 105 mmol/L (98-107); Creatinine, Serum 1.21 mg/dL (0.55-1.02); EST Glomerular Filtration Rate 46 mL/min (>60); Est Glom Filt Rate - Afr Amer 55 mL/min (>60); Glucose 88 mg/dL (74-106); Potassium 4.4 mmol/L (3.5-5.1); Sodium Level 139 mmol/L (136-145)
== END | disposition home or self-care (01) ==
LOC: LAB 13:22
PROVIDERS: PCP Family Medicine; Referring Provider Physician Assistant Medical; Visit Provider Physician Assistant Medical
DX: R01.1 Cardiac murmur, unspecified (principal); I10 Essential (primary) hypertension
CPT/HCPCS: 36415; 71046; 80048; 85025

== ENCOUNTER → 2024-04-30 | Outpatient (CLI) | payer MEDICARE, BC, SELFPAY ==
[2024-04-30 15:40] LABS: Anion Gap 7 (5-15); BUN 18 mg/dL (7-18); BUN/Creat Ratio 15.3 RATIO (10-20); Calcium,Total 9.5 mg/dL (8.5-10.1); Chloride 104 mmol/L (98-107); Creatinine, Serum 1.18 mg/dL (0.55-1.02); EST Glomerular Filtration Rate 47 mL/min (>60); Est Glom Filt Rate - Afr Amer 57 mL/min (>60); Glucose 113 mg/dL (74-106); Potassium 4.3 mmol/L (3.5-5.1); Sodium Level 135 mmol/L (136-145)
== END | disposition home or self-care (01) ==
LOC: MTLAB 13:35
PROVIDERS: PCP Family Medicine; Referring Provider Physician Assistant Medical; Visit Provider Physician Assistant Medical
DX: I97.89 Other postprocedural complications and disorders of the circulatory system, not elsewhere classified (principal); I48.91 Unspecified atrial fibrillation
CPT/HCPCS: 36415; 80048

== ENCOUNTER → 2024-05-19 | Outpatient (CLI) | payer MEDICARE, BC, SELFPAY ==
--- NOTE | 2024-05-19 13:59 | CR.HP_ITS ---
CR - History & Physical General Arrival date:: 05/19/24 Arrival time:: 14:00 Date of Referral:: 05/15/24 Date of CR Evaluation:: 05/19/24 Referring Physician: Dr. Alejandro Primary Diagnosis: Heart valve repair History of Present Cardiac Event Onset Date Heart valve replacement or repair:: Yes (03/24/24 onset) Medications Ambulatory Orders ?Medication ?Instructions ?Recorded pantoprazole 20 mg tablet,delayed 20 mg PO DAILY 01/05 release (Protonix) aspirin 81 mg tablet,delayed 81 mg PO QDAY 04/10/24 release (Adult Low Dose Aspirin) magnesium oxide 400 mg PO BID #180 caps 04/10 10/31 metoprolol succinate 50 mg 50 mg PO BID #180 tabs 04/10 12/01 tablet,extended release 24 hr amlodipine 2.5 mg tablet (Norvasc) 2.5 mg PO QDAY #30 tabs 05/14/24 cholecalciferol (vitamin D3) 25 25 mcg PO QDAY 5 mcg (1,000 unit) capsule glucosam 750 mg-chondroi 100 tab PO DAILY 05/14/24 mg-hyalur 1.65 mg-CF borate 108 mg tablet (GlobaTrek) Allergies Allergies oxycodone Allergy (Severe, Verified 05/14/24 15:22) Nausea omeprazole Allergy (Intermediate, Verified 05/14/24 15:22) Vomiting Sulfa (Sulfonamide Antibiotics) Allergy (Mild, Verified 05/14/24 15:22) Itching codeine Allergy (Verified 05/14/24 15:22) Vomiting methylprednisolone (From Medrol) Adverse Reaction (Severe, Verified 05/14/24 15:22) Itching Sleep Disorder Evaluation Hx of Sleep Apnea: No Do you snore loudly (louder than talking or can be heard through closed doors)?: No Do you often feel tired/ fatigued/ sleepy during daytime?: No Has anyone observed you stop breathing during sleep?: No History of Hypertension (for STOP score): Yes STOP Results: Negative Advanced Directives Advanced Directives Power of Assistant Passenger Locomotive Engineer: Yes Living Will: Yes Advance Directives Information Provided: Yes Advance Directives on File: No DNR Order?:: No Past Medical History Covid-19 Screening Physicial Symptoms Other Clinical Concerns Exposure Risk Pertinent Comorbidities Has a serious heart condition:: Yes Past Medical Illness Medical History Postoperative atrial fibrillation Wears hearing aid Wears glasses Post-menopausal Anxiety History of steroid therapy Back pain Blackout Difficulty swallowing History of hiatal hernia History of ulceration Asthma Shortness of breath on exertion Non-smoker Leg cramps History of pain when walking History of echocardiogram History of transesophageal echocardiography (SRIDEVI) Cardiology follow-up encounter Sacral nerve stimulator present Dyspnea Hypoglycemia Vestibular migraine OAB (overactive bladder) Vertigo Vitamin D deficiency GERD (gastroesophageal reflux disease) Hiatal hernia Solitary kidney, acquired Mitral valve prolapse Cardiac murmur Syncope and collapse Hypertension Arthritis Past Surgical History Surgical History S/P mitral valve repair S/P inguinal hernia repair History of cardiac catheterization Hx of right cataract extraction Hx of left cataract extraction History of esophagogastroduodenoscopy (EGD) Hx of colonoscopy History of back surgery Hx of cholecystectomy Total knee replacement status History of hysterectomy History of kidney surgery Surgical History: - Family History Summary Family History Aunt Breast cancer Mother Pancreatic cancer Brother Pancreatic cancer Cancer of blood vessel Social History Smoking History Smoking Status: Never smoker Alcohol Use Alcohol Usage: No Substance Abuse Hx Substance Use: No Occupation Occupation (List type of work in comments):: Retired Hobbies, Recreation, Social Activities Hobbies: Other Social Environment Status Marital Status: Current Living Arrangements Living Environment:: Spouse Children How many children do you have?: 1 Do any of your children live nearby?: Yes Safety Do you feel safe in your surroundings?: Yes Assistance Do you need any assistance at home?: no Review of Systems Review of Systems Hints Review of Present Symptoms: Reports Shortness of Breath with Exertion, Dizziness/Lightheadedness, Fatigue and Appetite - Special Diet; Denies Shortness of Breath at Rest, PVD, Operative Discomfort, Angina, Wound Healing, Heart Arrhythmia/Irregularities, Appetite - Normal, Sleep - Normal or Sexual Changes Pain Is Patient Pain Free?: Yes Risk Factor Assessment Chief Complaint Chief Complaint: Heart valve repair Vital Signs Pulse Ox: 99 Blood Pressure: 144/79 Pulse Pulse Rate: 65 Hypertension Blood Pressure Sitting - Right Arm: 144/79 Obesity Height: 5 ft 2 in Weight:: 147 lb Weight in Pounds: 147.0 lbs Body Mass Index (BMI): 26.9 Risk Stratification Risk Guidelines: Lowest Risk: Risk Factor for Smoking, Moderate Risk: Risk Factor for Dyslipidemia, Risk Factor for Diabetes, Risk Factor for Obesity, Risk Factor for Sedentary Lifestyle and Risk Factor for Depression and Highest Risk: Risk Factor for Hypertension For Smoking Smoking Risk Guidelines For Dyslipidemia Dyslipidemia Risk Guidelines For Diabetes Mellitus Diabetes Risk Guidelines For Obesity/Overweight Obesity/Overweight Risk Guidelines For Hypertension Hypertension Risk Guidelines For Sedentary Lifestyle Sedentary Lifestyle Risk Guidelines For Depression Depression Risk Guidelines Family History Family History Aunt Breast cancer Mother Pancreatic cancer Brother Pancreatic cancer Cancer of blood vessel Motivation Motivation to Participate On a scale of 1 to 10, how prepared are you to commit to attending program?: 6 What do you see as barriers to successfully being able to complete the program?: nothing What do you see as the benefits of succesfully completing the program? In other words, what do you hope to get out of participating in the program?: more energy, stronger legs Are there issues you are dealing with that will interfere with completing the program?: no Do you have a spouse or signficant other, family or friends who will help support you to complete the program?: yes
[2024-05-19 14:05] VITALS: BP 144/79; PULSE 65; O2SAT 99
--- NOTE | 2024-05-19 14:05 | PCM.CR.ITP ---
Diagnosis General Information Admitting Diagnosis: Heart valve repair Personal Learning Style:: Audio/Visual Barriers to Learning: No Barriers Stage of change r/t lifestyle modifications:: Contemplation Gave educational material for:: Treating Heart Disease, How The Heart Works, What it means to have Heart Disease, How Coronary Artery Disease is Diagnosed, Heart Procedures, What Heart Medications Do, Risk Factors & Modifications, Living an Active Life, Nutrition, Emotions & Heart Disease, Stress Management & Relaxation and Sleep Disorders & Heart Disease Education/Goals Cardiac Rehabilitation Goals Personal Goals: Initial Assessment: Improve energy level, Participate in home exercise program, Improve muscle strength and endurance and Improve diet and eating habits (eat healthier) Scale for measuring improvement of personal goals Diagnosis & Disease Process Outcomes/Goals: Pt IDs own risk factors & lifestyle modifications by Session 10, Verbalizes symptoms of angina & response by session 3., Pt independently manages and Other Additional Outcomes/Goals: Plan/Interventions: Assist Pt to ID & engage in lifestyle modification to reduce CVD risk, Instruct on individual risk factors, Review symptoms of angina & emergency actions, Review secondary diagnosis & identify educational needs. and Other see comment 30 day Reassessments:: Not Met 30 day Reassessments:: Not Met 30 day Reassessments:: Not Met 30 day Reassessments:: Not Met Safety Referral to Physical Therapy: No Referral to [facility] Case Management: No Fall Risk Assessed:: Yes Assistive Devices:: None Exercise - Initial Assessment Visit Date of Eval: 05/19/24 (initial eval ) Mets: Pre-: >3 METS for 30 minutes by discharge, >5 METS for 30 minutes by discharge, >7 METS for 30 minutes by discharge and Unable to meet goal due to: (see comment below) Physician Prescribed Exercise Modalities: Treadmill, Schwinn Airdyne AD-7, SciFit Stepper, Open PlacesFit Pro-II Ergometer and Open PlacesFit Lateral Brick Stacker Frequency: 3x/week for 12 weeks [36 sessions] Intensity: 60-80% of age predicted maximum heart rate reserve Duration: 30 - 45 minutes Current METSs:: 3 Target Heart Rate:: 84-105 Resting Blood Pressure: 144/79 EKG Type: NSR Outcomes & Goals Goals:: Verbalizes understanding of THR, RPE & goal METS by session 6, Documents in home exercise log/reports 30 min aerobic 5 day/wk by DC, Demonstrates accurate pulse taking by DC and Other additional outcome/goals: see below Intervention & Plan Exercise Program Goals: Instruct on personal THR & RPE, Instruct on MET level & personal MET goal, Show patient to take own pulse /validate performance until accurate, Instruct on home exercise and Other additional plan/int Physical Activity Home Exercise Physical Activity - Home Exercise: Safe Exercise, Warm-up, Self-monitoring, Cool-Down, Home Exercise > 30 min Daily and Sitting Time <3 hours/daily Outcomes & Goals Outcomes/Goals: Demonstrates correct Warm-up/exercise Cool-Down (S3) if = 2.5 METs, Verbalizes symptoms of exercise intolerance by Session 3 (S3), Demonstrate safe equipment use (S3) & follows exercise prescrition (6) and Other: See below Intervention & Plan Plan/Intervention: Instruct warm-up & cool-down if exercising at > 2 METs, Instruct on symptoms of exercise intolerance & actions to take, Instruct & monitor on saf, Assess intial functional capacity & safety risk and Other See below Nutrition - Initial Assessment Program Goals Nutrition Program Goals Patient has diagnosis of Hyperlipidemia (ICD E78)?: No Visit Date of Eval: 05/19/24 (initial eval ) Cholesterol/Lipids (Other Core Measures) Determine presence & major risk factors that modify LDL goal: Hypertension or hypertensive medication, Low HDL cholesterol <40 mg/dL*, Family history of premature CHD in Male < 55 years: female <65 yearsFa and Age men > 45 years; women >/= 55 years Outcomes/Goals: Pt IDs own risk factors & lifestyle modifications by Session 10, Verbalizes symptoms of angina & response by session 3., Pt independently manages and Other Additional Outcomes/Goals: Intervention/Plan: Advocate for lipid panel cholesterol medication if applicable, Instruct on personal lipid levels & lipid goals/NCEP guidelines, Instruct on cholesterol and Other additional plan/int Diabetes (Other Core Measures) Diabetes Type: Not Applicable Weight Mgt (Other Care) Height: 5 ft 2 in Weight:: 147 lb BMI: 26.9 Healthy Eating Habits Will attend diet classes:: Yes Outcomes/Goals:: Consume diet rich in vegs,fruits,whole grain/high fiber,fish,lean meat, Limit sat/trans fats,cholesterol & added salts & sugars and Other additional outcome/goals: Intervention/Plan:: Assess current eating habits and Other Additional plan/interventions Education Gave educational materials for:: Signs & symptoms of hypoglycemia, Signs & symptoms of hyperglycemia, Relate diabetes to coronary artery disease and Healthy eating Core - Initial Assessment Visit Date of Eval: 05/19/24 (initial eval ) Medication Compliance Preventative Medication(s):: Aspirin and Beta david H/O mental health issues: depression, anxiety, or addiction?: No Doesn?t believe in the benefits of treatment?: No Believes medications are unnecessary or harmful?: No Has a concern about medication side effects?: No Expresses concern over the cost of medications?: No Outcomes/Goals: Verbalizes medications,desired effect & common side effects @ DC, Pt self-reports following medication regimen, Keeps card in wallet w/medications listed by DC and Other additional outcome/goals: Interventions/plans: Instruct on medication effects & side effects, Review medication list w/patient every two weeks, Instruct importance of taking meds as ordered & assist problem solving and Other additional Tobacco Use Tobacco Use: Non-smoker Do you use smokeless tobacco?: No Outcomes/Goals: Smoking cessation achieved or maintained by discharge, Identify aids/strategies for achieving smoking cessation by session 6 and Other additional outcome/goals Interventions/plan: Instruct on effects of smoking & provide smoking cessation resource, Assist pt to set quit date & provide encouragement, Assist pt to develop strategies to achieve/maintain quit date, Assist pt w/nicotine replacement & medication for cessation success and Other additional plan/interventions Hypertension Hypertension Diagnosis:: Hypertension ICD-10 I10 Resting Blood Pressure:: 144/79 [place] [employer] Hypertension Guidelines Outcomes/Goals: Able to verbalize/achieve optimal blood pressure <130/80, Incorporates diet changes & exercise for blood pressure control by DC and Other additional outcomes/goals Interventions/plan: Instruct on optimal blood pressure, hypertension & medications, Instruct on effects of sodium, alcohol, stress, exercise &hypertension and Other additional plan/interventions Tobacco Cessation Referral Smoking Cessation Referral:: No Individual Education/Counseling:: No Education Schedule Given:: Yes Psychosocial - Initial Assess VIsit Date of Eval: 05/19/24 (initial eval ) History of previous Mental disease:: Yes (Pt states she occas. gets depressed but is doing fine at this time.) Target Goals Target Goals Referral to Behavioral Health PS - Interventions: Yes: Attend Stress Management Classes Outcomes/Goals: See list Psychosocial Outcomes/Goals:: ID's personal stressors & 2 strategies to manage stress by discharge and Other Additional outcome/goals: Intervention/Plan: See List Interventions/Plan:: Assess stressors,coping strategies & signs of derpression on admission, Instruct/assist pt to develop coping & personal stress Mgt strategies, Refer to Behavioral Health if appropriate, Refer to Physician if appropriate, Instruct patient to recognize signs & symptoms of depression, Instruct patient to recog and Other additional plan/intervention Patient Health Questionnaire PHQ-9 Screening Initial Assessment: 3. Trouble falling or staying asleep, or sleeping too much: More than half the days 4. Feeling tired or having little energy: Several days 5. Poor appetite or overeating: More than half the days 6. Feeling bad about yourself -- or that you are a failure or have let yourself or your family down: Not at all 7. Trouble concentrating on things, such as reading the newspaper or watching television: Not at all 8. Moving or speaking so slowly that other people could have noticed. Or the opposite - being so fidgety or restless that you have been moving around a lot more than usual: Not at all 9. Thoughts that you would be better off , or of hurting yourself in some way: Not at all How difficult have these problems made it for you to do your work, take care of things at home, or get along with other people?: Somewhat difficult Total Score: 5 SAIMA-Q SV Test Statements CAD is a disease of the arteries in the heart: I Don't Know Examples of risk factors for heart disease: I Don't Know Angina is chest pain or discomfort: I Don't Know The benefits of resistance training include: True Eating more meat and dairy products: I Don't Know Anti-platelet medications such as aspirin are important: True The only effective way to manage stress: False An exercise warm-up slowly increases heart rate: True Prepared, processed foods usually have high sodium: True Depression is common after a heart attack: I Don't Know The statin medications lower cholesterol: I Don't Know To control blood pressure, lower the amount of sodium: True If someone gets chest discomfort during walking: False Transfats are partially hydrogenated vegetable oils: I Don't Know Sleep apnea that is not treated increases the risk: I Don't Know To control cholesterol, one should become a vegetarian: False Someone knows if he/she is exercising at the right level: I Don't Know Diabetes cannot be prevented with exercise & health eating: True Stress is a large risk for heart attack: True A diet that can help lower blood pressure is rich in: True Total Score Total Correct Responses: 10 Self-Efficacy 6-Item Scale Initial Assessment: We would like to know how confident you are in doing certain activities. Please select your confidence level for: Fatigue Select Number: 7 Physical Discomfort or Pain Select Number: 8 Emotional Distress Select Number: 8 Other Symptoms or Health Problems Select Number: 8 Different Tasks and Activities Select Number: 8 Medication Select Number: 8 Total Score:: 7 Nutrition Survey Nutrition Survey Instructions Scoring Instructions Nutrition Survey Initial: Have you lost >10 lbs over the past 2 months without trying?: Yes Are you following a special diet at home for diabetes, low fat, or low salt?: No Are you interested in meeting with a dietitian for help understanding your diet?: No Do you eat less than 3 meals a day?: No Do you eat fatty meats (mccormick, sausage, ribs, etc), fried foods, desserts, large amounts of salad dressings, margarine, butter, or cheese most days?: No Do you have food allergies? [Enter types in comment field]: No Do you eat in restaurants more than 3 times a week?: No Do you season food with salt, seasoning salt, or garlic salt?: No Do you used canned, boxed, frozen meals, or soups, seasoning packets?: No Total Score:: 1 Exercise - 30-day Assessment Physician Prescribed Exercise Modalities: Treadmill, Schwinn Airdyne AD-7, SciFit Stepper, SciFit Pro-II Ergometer and SciFit Lateral Brick Stacker Exercise - 60-day Assessment Physician Prescribed Exercise Modalities: Treadmill, Schwinn Airdyne AD-7, SciFit Stepper, SciFit Pro-II Ergometer and SciFit Lateral Brick Stacker Exercise - 90-day Assessment Physician Prescribed Exercise Modalities: Treadmill, Schwinn Airdyne AD-7, SciFit Stepper, SciFit Pro-II Ergometer and SciFit Lateral [place] Exercise - Final/Discharge Physician Prescribed Exercise Modalities: Treadmill, Schwinn Airdyne AD-7, SciFit Stepper, SciFit Pro-II Ergometer and SciFit Lateral Brick Stacker Frequency: 3x/week for 12 weeks [36 sessions] Intensity: 60-80% of age predicted maximum heart rate reserve Current METSs:: 3 Target Heart Rate:: 84-105 Nutrition - 30-Day Assessment Weight Mgt (Other Care) Height: 5 ft 2 in Weight:: 147 lb BMI: 26.9 Nutrition - 60-Day Assessment Weight Mgt (Other Care) Height: 5 ft 2 in Weight:: 147 lb BMI: 26.9 Core - Final Assessment Hypertension Resting Blood Pressure:: 144/79 [place] [employer] Hypertension Guidelines Core - 60-Day Assessment Hypertension Resting Blood Pressure:: 144/79 [place] [employer] Hypertension Guidelines Psychosocial - 30-Day Assess Target Goals Target Goals Referral to Behavioral Health PS - Interventions: Yes: Attend Stress Management Classes Psychosocial - 60-Day Assess Target Goals Target Goals Referral to Behavioral Health PS - Interventions: Yes: Attend Stress Management Classes Psychosocial - 90-Day Assess Target Goals Target Goals Referral to Behavioral Health PS - Interventions: Yes: Attend Stress Management Classes Psychosocial - Final Assessmen Target Goals Target Goals Referral to Behavioral Health PS - Interventions: Yes: Attend Stress Management Classes Nutrition - 90-Day Assessment Weight Mgt (Other Care) Height: 5 ft 2 in Weight:: 147 lb BMI: 26.9 Nutrition - Final Assessment Program Goals Patient has diagnosis of Hyperlipidemia (ICD E78)?: No Weight Mgt (Other Care) Height: 5 ft 2 in Weight:: 147 lb BMI: 26.9
[2024-05-19 14:09] VITALS: BP 144/79
[2024-05-19 14:14] VITALS: BMI 26.9
[2024-05-19 14:54] VITALS: BP 144/79; BMI 26.9
== END | disposition home or self-care (01) ==
LOC: CR 13:52
PROVIDERS: PCP Family Medicine; Referring Provider Internal Medicine Cardiovascular Disease; Visit Provider Internal Medicine Cardiovascular Disease
DX: Z95.2 Presence of prosthetic heart valve (principal)

== ENCOUNTER 2024-06-06 10:15 | Outpatient (RCR) | payer MEDICARE, BC, SELFPAY ==
[2024-05-19 14:54] VITALS: BMI 26.9
== END 2024-06-06 23:59 ==
LOC: CR 10:15
PROVIDERS: PCP Family Medicine; Referring Provider Internal Medicine Cardiovascular Disease; Visit Provider Internal Medicine Cardiovascular Disease
DX: Z98.890 Other specified postprocedural states (principal)
CPT/HCPCS: 93798

== ENCOUNTER → 2024-06-09 | Outpatient (CLI) | payer MEDICARE, BC, SELFPAY ==
[2024-05-19 14:54] VITALS: BMI 26.9
[2024-06-09 10:11] LABS: Absolute Lymphocyte Count 1.45 X10^3/uL (0.83-4.51); Absolute Neutrophil Count 6.7 X10^3/uL (2.0-7.7); Basophil# 0.07 X10^3/uL; Basophil% 0.8 % (0-1); Eosinophil# 0.05 X10^3/uL; Eosinophils% 0.5 % (0-5); Hemoglobin 13.2 g/dL (12.0-15.0); Lymphocyte # 1.45 X10^3/ul (0.83-4.51); Lymphocyte % 15.7 % (19-41); Mean Corp Hgb Conc 31.4 g/dL (32-36); Mean Corpuscular Hgb 28.1 pg (27.0-32.0); Mean Corpuscular Volume 89.6 fL (81-99); Mean Platelet Vol. 11.5 fl (6.2-12.0); Monocyte# 0.84 X10^3/uL; Monocyte% 9.1 % (0-10); NRBC Flagged by Analyzer 0 % (0-5); Neutrophil # 6.74 X10^3/uL (2.7-7.7); Neutrophil % 73.2 % (47-70); Platelet Count 291 K/mm3 (150-450); RBC Distribution Width CV 15.3 % (11.6-14.6); RBC Distribution Width SD 50.6 fl (35.1-43.9); Red Blood Count 4.69 M/mm3 (4.2-5.4); White Blood Count 9.2 K/mm3 (4.4-11.0)
[2024-06-09 10:53] LABS: Anion Gap 11 (5-15); BUN 24 mg/dL (4-19); BUN/Creat Ratio 22.3 RATIO (10-20); Calcium 9.9 mg/dL (7.6-11.0); Carbon Dioxide 24.5 mmol/L (22.0-29.0); Chloride 103 mmol/L (96-108); Creatinine, Serum 1.09 mg/dL (0.70-1.20); EST Glomerular Filtration Rate 51 (>60); Glucose 65 mg/dL (70-99); Potassium 4.5 mmol/L (3.3-5.1); Sodium Level 138 mmol/L (133-145)
== END | disposition home or self-care (01) ==
LOC: LAB 09:18
PROVIDERS: PCP Family Medicine; Referring Provider Physician Assistant Medical; Visit Provider Physician Assistant Medical
DX: I10 Essential (primary) hypertension (principal); R06.00 Dyspnea, unspecified; Z98.890 Other specified postprocedural states; R53.83 Other fatigue; R42 Dizziness and giddiness
CPT/HCPCS: 36415; 80048; 84443; 85025

== ENCOUNTER → 2024-07-04 | Outpatient (CLI) | payer MEDICARE, BC, SELFPAY ==
[2024-06-16 07:20] VITALS: BMI 27.4
--- NOTE | 2024-07-04 10:52 | ECHOD_ITS ---
Reason For Study Reason For Study: Murmur, MV Repair Procedure This was a 2D Doppler, Color Flow transthoracic echocardiogram. Exam performed in department. Left Ventricle Normal LV size. Left ventricular systolic function is normal. The left ventricular ejection fraction is 55 %. No regional wall motion abnormalities noted. Right Ventricle Normal RV size. Normal systolic function. Atria Normal left atrium. Normal right atrium. Mitral Valve Mild (1+) mitral valve insufficiency. Status post mitral valve repair with annuloplasty ring. Tricuspid Valve Normal tricuspid valve. Mild (1+) tricuspid valve insufficiency. Pulmonary artery systolic pressure is 30 mmHg. Aortic Valve Trisinus/trileaflet aortic valve. Pulmonic Valve Normal pulmonic valve. Great Vessels Normal aortic root. The pulmonary artery is normal size. Inferior vena cava collapse with respiration. Pericardium/Pleural No pericardial effusion. MMode/2D Measurements & Calculations LVIDd: 3.9 cm IVSd: 1.1 cm Ao root diam: 3.4 cm LVIDs: 2.8 cm LVPWd: 1.1 cm RVDd: 2.9 cm FS: 28.0 % LAV(MOD-bp): 47.8 ml LVAd ap4: 17.5 cm2 LVAd ap2: 16.9 cm2 LAV(MOD-bp) Indexed: 28.5 ml/m2 LVLd ap4: 6.3 cm LVLd ap2: 6.9 cm LAV(MOD-sp2): 27.1 ml EDV(MOD-sp4): 42.0 ml EDV(MOD-sp2): 35.1 ml LAV(MOD-sp4): 77.2 ml EDV(sp4-el): 41.4 ml EDV(sp2-el): 35.3 ml LVAs ap4: 11.2 cm2 LVAs ap2: 10.6 cm2 LVLs ap4: 5.5 cm LVLs ap2: 6.3 cm ESV(MOD-sp4): 20.1 ml ESV(MOD-sp2): 15.8 ml ESV(sp4-el): 19.1 ml ESV(sp2-el): 15.1 ml EF(MOD-sp4): 52.1 % EF(MOD-sp2): 54.9 % EF(sp4-el): 53.8 % SV(MOD-sp4): 21.9 ml SV(MOD-sp2): 19.3 ml SV(sp4-el): 22.3 ml SI(MOD-sp4): 13.1 ml/m2 SI(MOD-sp2): 11.5 ml/m2 LA A4 area: 22.5 cm2 LA dimension(2D): 3.2 cm RA A4 area: 10.4 cm2 TAPSE: 1.5 cm Time Measurements MV dec time: 0.33 sec Doppler Measurements & Calculations MV E max jose: 128.8 cm/sec Lat Peak E' Jose: 6.1 cm/sec Med Peak E' Jose: 5.5 cm/sec MV A max jose: 149.8 cm/sec E/E' lat: 21.2 E/E' med: 23.3 MV E/A: 0.86 MV V2 max: 166.3 cm/sec MV P1/2t max jose: 130.2 cm/sec Ao V2 max: 116.8 cm/sec MV max P.1 mmHg MV P1/2t: 89.2 msec Ao max P.5 mmHg MV V2 mean: 107.4 cm/sec Ao V2 mean: 84.7 cm/sec MV mean P.0 mmHg MV dec slope: 427.4 cm/sec2 Ao mean P.2 mmHg MV V2 VTI: 38.4 cm MVA(P1/2t): 2.5 cm2 Ao V2 VTI: 26.6 cm AV (velocity ratio): 0.68 LV V1 max: 85.9 cm/sec PA V2 max: 80.2 cm/sec TR max jose: 257.6 cm/sec LV V1 max P.0 mmHg TR max P.5 mmHg LV V1 mean P.8 mmHg LV V1 mean: 64.1 cm/sec LV V1 VTI: 18.1 cm ECHO/Echo Complete Interpretation Summary Status post mitral valve repair with annuloplasty ring. Normal LV size. Left ventricular systolic function is normal. The left ventricular ejection fraction is 55 %. Pulmonary artery systolic pressure is 30 mmHg. Ordering Physician: Soraya Mark Referring Physician: Ricardo Reynolds Performed By: Haley Gardiner RDCS
== END | disposition home or self-care (01) ==
LOC: CVS 10:52
PROVIDERS: PCP Family Medicine; Referring Provider Physician Assistant Medical; Visit Provider Physician Assistant Medical
DX: R01.1 Cardiac murmur, unspecified (principal)
CPT/HCPCS: 93306

== ENCOUNTER 2024-07-07 10:15 | Outpatient (RCR) | payer MEDICARE, BC, SELFPAY ==
[2024-05-19 14:54] VITALS: BMI 26.9
--- NOTE | 2024-06-16 07:09 | PCM.CR.ITP ---
Exercise - Initial Assessment Visit Session #:: 10 Physician Prescribed Exercise Modalities: Treadmill and SciFit Stepper Nutrition - Initial Assessment Weight Mgt (Other Care) Height: 5 ft 2 in Weight:: 150 lb BMI: 27.4 Psychosocial - Initial Assess Target Goals Target Goals Referral to Behavioral Health PS - Interventions: Yes: Attend Stress Management Classes Patient Health Questionnaire PHQ-9 Screening 30-Day Re-eval Assessment: 3. Trouble falling or staying asleep, or sleeping too much: More than half the days 4. Feeling tired or having little energy: Several days 5. Poor appetite or overeating: More than half the days 6. Feeling bad about yourself -- or that you are a failure or have let yourself or your family down: Not at all 7. Trouble concentrating on things, such as reading the newspaper or watching television: Not at all 8. Moving or speaking so slowly that other people could have noticed. Or the opposite - being so fidgety or restless that you have been moving around a lot more than usual: Not at all 9. Thoughts that you would be better off , or of hurting yourself in some way: Not at all How difficult have these problems made it for you to do your work, take care of things at home, or get along with other people?: Somewhat difficult Total Score: 5 Self-Efficacy 6-Item Scale 30-Day Re-eval Assessment: We would like to know how confident you are in doing certain activities. Please select your confidence level for: Fatigue Select Number: 7 Physical Discomfort or Pain Select Number: 8 Emotional Distress Select Number: 8 Other Symptoms or Health Problems Select Number: 8 Different Tasks and Activities Select Number: 8 Medication Select Number: 8 Total Score:: 7 Nutrition Survey Nutrition Survey Instructions Scoring Instructions Exercise - 30-day Assessment Visit Date of Eval: 06/16/24 Session #:: 10 Physician Prescribed Exercise Modalities: Treadmill and SciFit Stepper Frequency: 3x/week for 12 weeks [36 sessions] Intensity: 60-80% of age predicted maximum heart rate reserve Duration: 30 - 45 minutes Current METSs:: 3 Target Heart Rate:: 84-105 Current RPE:: 11 Maximum Excercise HR:: 85 Resting Blood Pressure: 138/76 Maximum Exercise Blood Pressure: 138/76 EKG Type: NSR Outcomes & Goals Goals:: Verbalizes understanding of THR, RPE & goal METS by session 6, Documents in home exercise log/reports 30 min aerobic 5 day/wk by DC, Demonstrates accurate pulse taking by DC and Other additional outcome/goals: see below Intervention & Plan Exercise Program Goals: Instruct on personal THR & RPE, Instruct on MET level & personal MET goal, Show patient to take own pulse /validate performance until accurate, Instruct on home exercise and Other additional plan/int Physical Activity Home Exercise Physical Activity - Home Exercise: Safe Exercise, Warm-up, Self-monitoring, Cool-Down, Home Exercise > 30 min Daily and Sitting Time <3 hours/daily Outcomes & Goals Outcomes/Goals: Demonstrates correct Warm-up/exercise Cool-Down (S3) if = 2.5 METs, Verbalizes symptoms of exercise intolerance by Session 3 (S3), Demonstrate safe equipment use (S3) & follows exercise prescrition (6) and Other: See below Intervention & Plan Plan/Intervention: Instruct warm-up & cool-down if exercising at > 2 METs, Instruct on symptoms of exercise intolerance & actions to take, Instruct & monitor on saf, Assess intial functional capacity & safety risk and Other See below 30-day Reassessments 30 day Reassessments:: Progressing Reassessment Notes & Comments:: RPE explained. Pt demonstrates understanding in her daily sessions. Exercise - 60-day Assessment Physician Prescribed Exercise Modalities: Treadmill and SciFit Stepper Exercise - 90-day Assessment Physician Prescribed Exercise Modalities: Treadmill and SciFit Stepper Exercise - Final/Discharge Physician Prescribed Exercise Modalities: Treadmill and SciFit Stepper Nutrition - 30-Day Assessment Program Goals Nutrition Program Goals Patient has diagnosis of Hyperlipidemia (ICD E78)?: No Visit Date of Eval: 06/16/24 Session #:: 10 Cholesterol/Lipids (Other Core Measures) Determine presence & major risk factors that modify LDL goal: Hypertension or hypertensive medication, Low HDL cholesterol <40 mg/dL*, Family history of premature CHD in Male < 55 years: female <65 yearsFa and Age men > 45 years; women >/= 55 years Outcomes/Goals: Pt IDs own risk factors & lifestyle modifications by Session 10, Verbalizes symptoms of angina & response by session 3., Pt independently manages and Other Additional Outcomes/Goals: Intervention/Plan: Advocate for lipid panel cholesterol medication if applicable, Instruct on personal lipid levels & lipid goals/NCEP guidelines, Instruct on cholesterol and Other additional plan/int Diabetes (Other Core Measures) Diabetes Type: Not Applicable Weight Mgt (Other Care) Height: 5 ft 2 in Weight:: 150 lb BMI: 27.4 Diagnosis Overweight/Obesity BMI> 30% ICD-10 E66: No Diagnosis High BMI/Morbid Obesity BMI> 35% ICD-10 Z68: No Outcomes/Goals: Pt sets, maintains & shows weight loss goal & trend during rehab and Other additional outcomes/goals Intervention/Plan: Instruct on ideal BMI & set weight loss goal w/patient, Assist pt to ID & incorporate diet changes for weight loss by S9, Refer to Structured Weight Loss program as appropriate, Encourage goal of using 250-300dcal per session for weight loss and Other additional plan/interventions Healthy Eating Habits Will attend diet classes:: Yes Outcomes/Goals:: Consume diet rich in vegs,fruits,whole grain/high fiber,fish,lean meat, Limit sat/trans fats,cholesterol & added salts & sugars and Other additional outcome/goals: Intervention/Plan:: Assess current eating habits and Other Additional plan/interventions 30-day Reassessments:: Progressing Reassessment Notes & Comments:: Low sodium heart healthy diet encouraged in nutrition class. Pt demonstrates understanding. Education Gave educational materials for:: Signs & symptoms of hypoglycemia, Signs & symptoms of hyperglycemia, Relate diabetes to coronary artery disease and Healthy eating Nutrition - 60-Day Assessment Weight Mgt (Other Care) Height: 5 ft 2 in Weight:: 150 lb BMI: 27.4 Core - 30-Day Assessment Visit Date of Eval: 06/16/24 Session #:: 10 Medication Compliance Preventative Medication(s):: Aspirin and Beta david H/O mental health issues: depression, anxiety, or addiction?: No Doesn?t believe in the benefits of treatment?: No Believes medications are unnecessary or harmful?: No Has a concern about medication side effects?: No Expresses concern over the cost of medications?: No Outcomes/Goals: Verbalizes medications,desired effect & common side effects @ DC, Pt self-reports following medication regimen, Keeps card in wallet w/medications listed by DC and Other additional outcome/goals: Interventions/plans: Instruct on medication effects & side effects, Review medication list w/patient every two weeks, Instruct importance of taking meds as ordered & assist problem solving and Other additional Tobacco Use Tobacco Use: Non-smoker Hypertension Hypertension Diagnosis:: Hypertension ICD-10 I10 Resting Blood Pressure:: 138/76 [place] [employer] Hypertension Guidelines Peak Exercise Blood Pressure:: 138/76 Outcomes/Goals: Able to verbalize/achieve optimal blood pressure <130/80, Incorporates diet changes & exercise for blood pressure control by DC and Other additional outcomes/goals Interventions/plan: Instruct on optimal blood pressure, hypertension & medications, Instruct on effects of sodium, alcohol, stress, exercise &hypertension and Other additional plan/interventions 30 day Reassessments:: Progressing Reassessment Notes & Comments:: Low sodium diet encouraged to help lower BP's. BP's are within AHA normal limits on most days. Tobacco Cessation Referral Smoking Cessation Referral:: No Individual Education/Counseling:: No Education Schedule Given:: Yes Psychosocial - 30-Day Assess VIsit Date of Eval: 06/16/24 Session #:: 10 History of previous Mental disease:: Yes (Pt states she occas. gets depressed but is doing fine at this time.) Target Goals Target Goals Psychosocial Test Tool Used:: Elecar QOL Cardiac and PHQ-9 Questionnaire phq-9 Severity Referral to Behavioral Health PS - Interventions: Yes: Attend Stress Management Classes Outcomes/Goals: See list Psychosocial Outcomes/Goals:: ID's personal stressors & 2 strategies to manage stress by discharge and Other Additional outcome/goals: Intervention/Plan: See List Interventions/Plan:: Assess stressors,coping strategies & signs of derpression on admission, Instruct/assist pt to develop coping & personal stress Mgt strategies, Refer to Behavioral Health if appropriate, Refer to Physician if appropriate, Instruct patient to recognize signs & symptoms of depression, Instruct patient to recog and Other additional plan/intervention 30-day Reassessments: 30 day Reassessments:: Progressing Reassessment Notes & Comments:: Pt states she occas. gets depressed but is doing fine at this time. Pt will attend stress management class. Psychosocial - 60-Day Assess Target Goals Target Goals Referral to Behavioral Health PS - Interventions: Yes: Attend Stress Management Classes Outcomes/Goals: See list Psychosocial Outcomes/Goals:: ID's personal stressors & 2 strategies to manage stress by discharge and Other Additional outcome/goals: Psychosocial - 90-Day Assess Target Goals Target Goals Referral to Behavioral Health PS - Interventions: Yes: Attend Stress Management Classes Psychosocial - Final Assessmen Target Goals Target Goals Referral to Behavioral Health PS - Interventions: Yes: Attend Stress Management Classes Nutrition - 90-Day Assessment Weight Mgt (Other Care) Height: 5 ft 2 in Weight:: 150 lb BMI: 27.4 Nutrition - Final Assessment Weight Mgt (Other Care) Height: 5 ft 2 in Weight:: 150 lb BMI: 27.4
[2024-06-16 07:20] VITALS: BP 138/76; BMI 27.4
== END 2024-07-07 23:59 ==
LOC: CR 10:15
PROVIDERS: PCP Family Medicine; Referring Provider Internal Medicine Cardiovascular Disease; Visit Provider Internal Medicine Cardiovascular Disease
DX: Z98.890 Other specified postprocedural states (principal)
CPT/HCPCS: 93798

== ENCOUNTER 2024-07-30 10:15 | Outpatient (RCR) | payer MEDICARE, BC, SELFPAY ==
[2024-06-16 07:20] VITALS: BMI 27.4
[2024-07-08 00:29] VITALS: BP 138/76
--- NOTE | 2024-07-16 07:04 | CR.ITP_ITS ---
Exercise - Initial Assessment Physician Prescribed Exercise Modalities: Treadmill, SciFit Stepper and SciFit Pro-II Ergometer Nutrition - Initial Assessment Weight Mgt (Other Care) Height: 5 ft 2 in Weight:: 151 lb BMI: 27.6 Core - Initial Assessment Hypertension Resting Blood Pressure:: 112/62 [place] [employer] Hypertension Guidelines Psychosocial - Initial Assess Target Goals Target Goals Referral to Behavioral Health PS - Interventions: Yes: Attend Stress Management Classes Patient Health Questionnaire PHQ-9 Screening 60-Day Re-eval Assessment: 3. Trouble falling or staying asleep, or sleeping too much: More than half the days 4. Feeling tired or having little energy: Several days 5. Poor appetite or overeating: More than half the days 6. Feeling bad about yourself -- or that you are a failure or have let yourself or your family down: Not at all 7. Trouble concentrating on things, such as reading the newspaper or watching television: Not at all 8. Moving or speaking so slowly that other people could have noticed. Or the opposite - being so fidgety or restless that you have been moving around a lot more than usual: Not at all 9. Thoughts that you would be better off , or of hurting yourself in some way: Not at all How difficult have these problems made it for you to do your work, take care of things at home, or get along with other people?: Somewhat difficult Total Score: 5 Self-Efficacy 6-Item Scale 60-Day Re-eval Assessment: We would like to know how confident you are in doing certain activities. Please select your confidence level for: Fatigue Select Number: 7 Physical Discomfort or Pain Select Number: 8 Emotional Distress Select Number: 8 Other Symptoms or Health Problems Select Number: 8 Different Tasks and Activities Select Number: 8 Medication Select Number: 8 Total Score:: 7 Nutrition Survey Nutrition Survey Instructions Scoring Instructions Exercise - 30-day Assessment Physician Prescribed Exercise Modalities: Treadmill, SciFit Stepper and SciFit Pro-II Ergometer Exercise - 60-day Assessment Visit Date of Eval: 07/16/24 Session #:: 21 Physician Prescribed Exercise Modalities: Treadmill, SciFit Stepper and SciFit Pro-II Ergometer Frequency: 3x/week for 12 weeks [36 sessions] Intensity: 60-80% of age predicted maximum heart rate reserve Duration: 30 - 45 minutes Current METSs:: 3 Target Heart Rate:: 84-105 Current RPE:: 12-13 Maximum Excercise HR:: 94 Resting Blood Pressure: 118/64 Maximum Exercise Blood Pressure: 106/60 EKG Type: NSR with rare PVC's Outcomes & Goals Goals:: Verbalizes understanding of THR, RPE & goal METS by session 6, Documents in home exercise log/reports 30 min aerobic 5 day/wk by DC, Demonstrates accurate pulse taking by DC and Other additional outcome/goals: see below Intervention & Plan Exercise Program Goals: Instruct on personal THR & RPE, Instruct on MET level & personal MET goal, Show patient to take own pulse /validate performance until accurate, Instruct on home exercise and Other additional plan/int Physical Activity Home Exercise Physical Activity - Home Exercise: Safe Exercise, Warm-up, Self-monitoring, Cool-Down, Home Exercise > 30 min Daily and Sitting Time <3 hours/daily Outcomes & Goals Outcomes/Goals: Demonstrates correct Warm-up/exercise Cool-Down (S3) if = 2.5 METs, Verbalizes symptoms of exercise intolerance by Session 3 (S3), Demonstrate safe equipment use (S3) & follows exercise prescrition (6) and Other: See below Intervention & Plan Plan/Intervention: Instruct warm-up & cool-down if exercising at > 2 METs, Instruct on symptoms of exercise intolerance & actions to take, Instruct & monitor on saf, Assess intial functional capacity & safety risk and Other See below 30-day Reassessments 30 day Reassessments:: Progressing Reassessment Notes & Comments:: Proper warm up and cool down explained to pt. Pt demonstrates understanding in her daily sessions. Exercise - 90-day Assessment Physician Prescribed Exercise Modalities: Treadmill, SciFit Stepper and SciFit Pro-II Ergometer Exercise - Final/Discharge Physician Prescribed Exercise Modalities: Treadmill, SciFit Stepper and SciFit Pro-II Ergometer Nutrition - 30-Day Assessment Weight Mgt (Other Care) Height: 5 ft 2 in Weight:: 151 lb BMI: 27.6 Nutrition - 60-Day Assessment Program Goals Nutrition Program Goals Patient has diagnosis of Hyperlipidemia (ICD E78)?: No Visit Date of Eval: 07/16/24 Session #:: 21 Cholesterol/Lipids (Other Core Measures) Determine presence & major risk factors that modify LDL goal: Hypertension or hypertensive medication, Low HDL cholesterol <40 mg/dL*, Family history of premature CHD in Male < 55 years: female <65 yearsFa and Age men > 45 years; women >/= 55 years Outcomes/Goals: Pt IDs own risk factors & lifestyle modifications by Session 10, Verbalizes symptoms of angina & response by session 3., Pt independently manages and Other Additional Outcomes/Goals: Intervention/Plan: Advocate for lipid panel cholesterol medication if applicable, Instruct on personal lipid levels & lipid goals/NCEP guidelines, Instruct on cholesterol and Other additional plan/int Diabetes (Other Core Measures) Diabetes Type: Not Applicable Weight Mgt (Other Care) Height: 5 ft 2 in Weight:: 151 lb BMI: 27.6 Diagnosis Overweight/Obesity BMI> 30% ICD-10 E66: No Diagnosis High BMI/Morbid Obesity BMI> 35% ICD-10 Z68: No Outcomes/Goals: Pt sets, maintains & shows weight loss goal & trend during rehab and Other additional outcomes/goals Intervention/Plan: Instruct on ideal BMI & set weight loss goal w/patient, Assist pt to ID & incorporate diet changes for weight loss by S9, Refer to Structured Weight Loss program as appropriate, Encourage goal of using 250- 300dcal per session for weight loss and Other additional plan/interventions Healthy Eating Habits Will attend diet classes:: Yes Outcomes/Goals:: Consume diet rich in vegs,fruits,whole grain/high fiber,fish,lean meat, Limit sat/trans fats,cholesterol & added salts & sugars and Other additional outcome/goals: Intervention/Plan:: Assess current eating habits and Other Additional plan/interventions 30-day Reassessments:: Met Reassessment Notes & Comments:: Pt is at a healthy weight. Pt has attended nutrition class and understands the benefits of a heart healthy low sodium diet. Education Gave educational materials for:: Signs & symptoms of hypoglycemia, Signs & symptoms of hyperglycemia, Relate diabetes to coronary artery disease and Healthy eating Core - Final Assessment Hypertension Resting Blood Pressure:: 112/62 [place] [employer] Hypertension Guidelines Core - 60-Day Assessment Visit Date of Eval: 07/16/24 Session #:: 21 Medication Compliance Preventative Medication(s):: Aspirin and Beta david H/O mental health issues: depression, anxiety, or addiction?: No Doesn?t believe in the benefits of treatment?: No Believes medications are unnecessary or harmful?: No Has a concern about medication side effects?: No Expresses concern over the cost of medications?: No Outcomes/Goals: Verbalizes medications,desired effect & common side effects @ DC, Pt self-reports following medication regimen, Keeps card in wallet w/medications listed by DC and Other additional outcome/goals: Interventions/plans: Instruct on medication effects & side effects, Review medication list w/patient every two weeks, Instruct importance of taking meds as ordered & assist problem solving and Other additional Tobacco Use Tobacco Use: Non-smoker Hypertension Hypertension Diagnosis:: Hypertension ICD-10 I10 Resting Blood Pressure:: 118/64 Resting Blood Pressure:: 112/62 [employer] Hypertension Guidelines Peak Exercise Blood Pressure:: 108/60 Outcomes/Goals: Able to verbalize/achieve optimal blood pressure <130/80, Incorporates diet changes & exercise for blood pressure control by DC and Other additional outcomes/goals Interventions/plan: Instruct on optimal blood pressure, hypertension & medications, Instruct on effects of sodium, alcohol, stress, exercise &hypertension and Other additional plan/interventions 30 day Reassessments:: Met Reassessment Notes & Comments:: Pt's BP's are within AHA normal limits on most days. Will continue to monitor and report to physician if necessary. Tobacco Cessation Referral Smoking Cessation Referral:: No Individual Education/Counseling:: No Education Schedule Given:: Yes Psychosocial - 30-Day Assess Target Goals Target Goals Referral to Behavioral Health PS - Interventions: Yes: Attend Stress Management Classes Outcomes/Goals: See list Psychosocial Outcomes/Goals:: ID's personal stressors & 2 strategies to manage stress by discharge and Other Additional outcome/goals: Psychosocial - 60-Day Assess VIsit Date of Eval: 07/16/24 Session #:: 21 History of previous Mental disease:: Yes History of Emotional Disorders: Depression (Pt states she occas. gets depressed but is doing fine at this time.) Target Goals Target Goals Psychosocial Test Tool Used:: [employer] QOL Cardiac and PHQ-9 Questionnaire phq-9 Severity See PHQ-9 Score: 5 Referral to Behavioral Health PS - Interventions: Yes: Attend Stress Management Classes Outcomes/Goals: See list Psychosocial Outcomes/Goals:: ID's personal stressors & 2 strategies to manage stress by discharge and Other Additional outcome/goals: Intervention/Plan: See List Interventions/Plan:: Assess stressors,coping strategies & signs of derpression on admission, Instruct/assist pt to develop coping & personal stress Mgt strategies, Refer to Behavioral Health if appropriate, Refer to Physician if appropriate, Instruct patient to recognize signs & symptoms of depression, Instruct patient to recog and Other additional plan/intervention 30-day Reassessments: 30 day Reassessments:: Progressing Reassessment Notes & Comments:: Pt states she occas. gets depressed but is doing fine at this time. Pt to attend stress management class. Psychosocial - 90-Day Assess Target Goals Target Goals Referral to Behavioral Health PS - Interventions: Yes: Attend Stress Management Classes Psychosocial - Final Assessmen Target Goals Target Goals Referral to Behavioral Health PS - Interventions: Yes: Attend Stress Management Classes Nutrition - 90-Day Assessment Weight Mgt (Other Care) Height: 5 ft 2 in Weight:: 151 lb BMI: 27.6 Nutrition - Final Assessment Weight Mgt (Other Care) Height: 5 ft 2 in Weight:: 151 lb BMI: 27.6
[2024-07-16 07:16] VITALS: BP 112/62; BP 118/64; BMI 27.6
== END 2024-08-06 23:59 ==
LOC: CR 10:15
PROVIDERS: PCP Family Medicine; Referring Provider Internal Medicine Cardiovascular Disease; Visit Provider Internal Medicine Cardiovascular Disease
DX: Z98.890 Other specified postprocedural states (principal)
CPT/HCPCS: 93798

== ENCOUNTER → 2024-08-05 | Outpatient (CLI) | payer MEDICARE, BC, SELFPAY ==
[2024-07-16 07:16] VITALS: BMI 27.6
[2024-08-05 12:33] LABS: Erythrocyte Sedimentation Rate 15 mm/hr (0-30)
[2024-08-05 12:40] LABS: Absolute Lymphocyte Count 1.26 X10^3/uL (0.83-4.51); Absolute Neutrophil Count 6.4 X10^3/uL (2.0-7.7); Basophil# 0.05 X10^3/uL; Basophil% 0.6 % (0-1); Eosinophil# 0.07 X10^3/uL; Eosinophils% 0.8 % (0-5); Hematocrit 39.5 % (37-47); Hemoglobin 12.6 g/dL (12.0-15.0); Lymphocyte # 1.26 X10^3/ul (0.83-4.51); Lymphocyte % 15.1 % (19-41); Mean Corp Hgb Conc 31.9 g/dL (32-36); Mean Corpuscular Volume 87.8 fL (81-99); Mean Platelet Vol. 11.6 fl (6.2-12.0); Monocyte# 0.57 X10^3/uL; Monocyte% 6.8 % (0-10); NRBC Flagged by Analyzer 0 % (0-5); Neutrophil # 6.36 X10^3/uL (2.7-7.7); Neutrophil % 76.3 % (47-70); Platelet Count 278 K/mm3 (150-450); RBC Distribution Width CV 16.1 % (11.6-14.6); RBC Distribution Width SD 52.3 fl (35.1-43.9); White Blood Count 8.3 K/mm3 (4.4-11.0)
[2024-08-05 13:02] LABS: ALB/GLOB Ratio 1.3 RATIO (0.9-2.4); AST(SGOT) 23 U/L (<=31); Alanine Aminotransfer ALT/SGPT 10 U/L (<=34); Albumin, Serum 4.1 g/dL (3.4-4.8); Alkaline Phosphatase 84 U/L (35-104); Anion Gap 12 (5-15); BUN 23 mg/dL (4-19); BUN/Creat Ratio 20.9 RATIO (10-20); Calcium,Total 9.8 mg/dL (7.6-11.0); Carbon Dioxide 23.6 mmol/L (21.0-32.0); Chloride 103 mmol/L (98-108); Creatinine, Serum 1.08 mg/dL (0.70-1.20); EST Glomerular Filtration Rate 52 (>60); Globulin 3.2 g/dL (2.2-4.2); Glucose 73 mg/dL (70-99); Potassium 4.2 mmol/L (3.3-5.1); Protein, Total 7.3 g/dL (5.9-8.4); Sodium Level 139 mmol/L (133-145); Total Bilirubin 0.46 mg/dL (0.00-1.30)
== END | disposition home or self-care (01) ==
LOC: MTLAB 09:15
PROVIDERS: PCP Family Medicine; Referring Provider Internal Medicine Rheumatology; Visit Provider Internal Medicine Rheumatology
DX: M06.4 Inflammatory polyarthropathy (principal); Z79.899 Other long term (current) drug therapy
CPT/HCPCS: 36415; 80053; 85025; 85652; 86140

== ENCOUNTER → 2024-08-29 | Outpatient (CLI) | payer MEDICARE, BC, SELFPAY ==
[2024-07-16 07:16] VITALS: BMI 27.6
[2024-08-29 18:07] LABS: Absolute Lymphocyte Count 1.88 X10^3/uL (0.83-4.51); Absolute Neutrophil Count 7.2 X10^3/uL (2.0-7.7); Basophil# 0.07 X10^3/uL; Basophil% 0.7 % (0-1); Eosinophil# 0.13 X10^3/uL; Eosinophils% 1.3 % (0-5); Hematocrit 41.5 % (37-47); Hemoglobin 12.8 g/dL (12.0-15.0); Lymphocyte # 1.88 X10^3/ul (0.83-4.51); Lymphocyte % 18.7 % (19-41); Mean Corp Hgb Conc 30.8 g/dL (32-36); Mean Corpuscular Hgb 27.7 pg (27.0-32.0); Mean Corpuscular Volume 89.8 fL (81-99); Mean Platelet Vol. 13.4 fl (6.2-12.0); Monocyte# 0.77 X10^3/uL; Monocyte% 7.7 % (0-10); NRBC Flagged by Analyzer 0 % (0-5); Neutrophil # 7.15 X10^3/uL (2.7-7.7); Neutrophil % 71.2 % (47-70); Platelet Count 226 K/mm3 (150-450); RBC Distribution Width CV 15.9 % (11.6-14.6); Red Blood Count 4.62 M/mm3 (4.2-5.4)
[2024-08-29 18:16] LABS: ALB/GLOB Ratio 1.4 RATIO (0.9-2.4); AST(SGOT) 24 U/L (<=31); Alanine Aminotransfer ALT/SGPT 9 U/L (<=34); Albumin, Serum 4.2 g/dL (3.4-4.8); Alkaline Phosphatase 77 U/L (35-104); Anion Gap 13 (5-15); BUN 26 mg/dL (4-19); BUN/Creat Ratio 21.8 RATIO (10-20); CRP 3.86 mg/L (0.0-3.0); Calcium,Total 9.8 mg/dL (7.6-11.0); Carbon Dioxide 23.8 mmol/L (21.0-32.0); Chloride 104 mmol/L (98-108); Creatinine, Serum 1.17 mg/dL (0.70-1.20); EST Glomerular Filtration Rate 47 (>60); Globulin 3.1 g/dL (2.2-4.2); Glucose 105 mg/dL (70-99); Potassium 4.3 mmol/L (3.3-5.1); Protein, Total 7.4 g/dL (5.9-8.4); Sodium Level 140 mmol/L (133-145); Total Bilirubin 0.45 mg/dL (0.00-1.30)
[2024-08-29 18:31] LABS: Erythrocyte Sedimentation Rate 27 mm/hr (0-30)
== END | disposition home or self-care (01) ==
LOC: MTLAB 14:43
PROVIDERS: PCP Family Medicine; Referring Provider Internal Medicine Rheumatology; Visit Provider Internal Medicine Rheumatology
DX: M06.4 Inflammatory polyarthropathy (principal); Z79.899 Other long term (current) drug therapy
CPT/HCPCS: 36415; 80053; 85025; 85652; 86140

== ENCOUNTER 2024-09-17 21:43 | Emergency (ER) | payer MEDICARE, BC, SELFPAY ==
[2024-07-16 07:16] VITALS: BMI 27.6
[2024-09-17 21:44] VITALS: BP 166/88; PULSE 97; RESP 18; TEMP 36.3; O2SAT 97; BMI 28.5
[2024-09-17 21:48] VITALS: O2SAT 97
--- NOTE | 2024-09-17 21:49 | EKG12_ITS ---
Test Reason : SOB Blood Pressure : */* mmHG Vent. Rate : 90 BPM Atrial Rate : 90 BPM P-R Int : 106 ms QRS Dur : 76 ms QT Int : 380 ms P-R-T Axes : 45 -9 43 degrees QTcB Int : 464 ms Sinus rhythm with short ME with Premature supraventricular complexes and with frequent Premature ventricular complexes Possible Left atrial enlargement Borderline ECG Confirmed by Paco Albright ([id number]), greeting card editor MERYL GOEL ([id number]) on 09/18/2024 10:19:02 AM Referred By: Confirmed By: Paco Albright
[2024-09-17 22:23] LABS: Absolute Lymphocyte Count 1.99 X10^3/uL (0.83-4.51); Absolute Neutrophil Count 7.1 X10^3/uL (2.0-7.7); Basophil# 0.05 X10^3/uL; Basophil% 0.5 % (0-1); Eosinophil# 0.14 X10^3/uL; Eosinophils% 1.4 % (0-5); Hematocrit 38.8 % (37-47); Hemoglobin 12.2 g/dL (12.0-15.0); Lymphocyte # 1.99 X10^3/ul (0.83-4.51); Lymphocyte % 19.8 % (19-41); Mean Corp Hgb Conc 31.4 g/dL (32-36); Mean Corpuscular Hgb 27.7 pg (27.0-32.0); Mean Platelet Vol. 11.8 fl (6.2-12.0); Monocyte# 0.77 X10^3/uL; Monocyte% 7.7 % (0-10); NRBC Flagged by Analyzer 0 % (0-5); Neutrophil # 7.06 X10^3/uL (2.7-7.7); Neutrophil % 70.4 % (47-70); Platelet Count 272 K/mm3 (150-450); RBC Distribution Width CV 15.7 % (11.6-14.6); RBC Distribution Width SD 50.9 fl (35.1-43.9); Red Blood Count 4.41 M/mm3 (4.2-5.4)
--- OUTSIDE RECORDS SUMMARY | 2024-09-17 22:28 | XMS RPT_ITS | CCD ---
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 Davey Valente Primary Care Provider Dr. Davey Valente Referring Provider Dr. Chani Cervantes Attending Provider [phone] Dr. Julio Ochoa Attending Provider [phone] Davey Valente Primary Care Provider [phone] Dr. Davey Valente Referring Provider Dr. Davey Valente Primary Care Provider [phone] Dr. Davey Valente Referring Provider Dr. Julio Ochoa Attending Provider [phone] Chani Cervantes Attending Provider Dr. Davey Valente Primary Care Provider Dr. Davey Valente Referring Provider Dr. Julio Ochoa Attending Provider [phone] Unavailable Primary Care Provider Unavailphilipp Alejandro MD, Eakly S Unavailable Davey Valente DO Primary Care Provider Esme Arango MD Unavailable Herlinda Nesbitt MD Unavailable [phone] JEREMIAS TANNER Attending Unavailable JAVON, KENNY S Referring Unavailable DAVEY VALENTE Primary Care Unavailable Dr. Davey Valente DO Primary Care Provider [phone] Soraya Amador Attending Provider [phone] Soraya Amador Referring Provider [phone] Dr. Davey Valente DO Referring Provider [phone] Javon MENDOZA, Dr. Cox Attending Provider [phone] Javon MENDOZA, Dr. Cox Referring Provider [phone] Dr. Davey Valente DO Primary Care Provider [phone] Soraya Amador Attending Provider [phone] Soraya Amador Referring Provider [phone] Ambrosio ACOSTA, Dr. Silva Referring Provider [phone] Razia MENDOZA, Dr. Mansfield Attending Provider Razia MENDOZA, Dr. Mansfield Referring Provider GILLINOV, A MICKEY Attending Unavailable PIERRE ALEJANDRORIL S Referring Unavailable AMBROSIO, DAVEY A Primary Care Unavailable AMBROSIO, DAVEY A Primary Care Unavailable GILLINOV, A MICKEY Referring Unavailable GILLINOV, A MICKEY Referring Unavailable AMBROSIO, DAVEY A Primary Care Unavailable AMBROSIO, DAVEY A Primary Care Unavailable GILLINOV, A MICKEY Referring Unavailable AMBROSIO, DAVEY A Primary Care Unavailable GILLINOV, A MICKEY Referring Unavailable AMBROSIO, DAVEY A Primary Care Unavailable GILLINOV, A MICKEY Referring Unavailable AMBROSIO, DAVEY A Primary Care Unavailable GILLINOV, A MICKEY Referring Unavailable GILLINOV, A MICKEY Admitting Unavailable GILLINOV, A MICKEY Attending Unavailable AMBROSIO, DAVEY A Primary Care Unavailable AMBROSIO, DAVEY A Primary Care Unavailable GILLINOV, A MICKEY Referring Unavailable SHABBIR-NLIAM, CHETE JUN Attending Shelbyvai yuly VALENTE, DAVEY A Primary Care Unavailable RELLINOV, A MICKEY Referring Unavailable Dr. Davey Valente DO Primary Care Provider [phone] Soraya Amador Attending Provider [phone] Soraya Amador Referring Provider [phone] Davey Valente Primary Care Unavailable Javon Kenny Attending Unavailable Ambrosio, Davey Primary Care Unavailable Javon, Kenny Attending Unavailable Javon, Kenny Referring Unavailable Javon, Eakly Attending Unavailable Ambrosio, Davey Referring Unavailable Ambrosio, Davey Primary Care Unavailable Ambrosio, Davey Primary Care Unavailable Razia, Shyla Attending Unavailable Vellanki, Shyla Referring Unavailable Javon, Kenny Referring Unavailable Ambrosio, Davey Primary Care Unavailable Javon, Kenny Attending Unavailable Ambrosio, Davey Primary Care Unavailable Soraya Amador Referring Unavail able Soraya Amador Attending Unavail able Ambrosio, Davey Primary Care Unavailable Timur Simpson Attending Unavailable Timur Simpson Referring Unavailable Javon, Kenny Attending Unavailable Ambrosio, Davey Primary Care Unavailable Javon, Eakly Referring Unavailable Ambrosio, Davey Referring Unavailable Ambrosio, Davey Primary Care Unavailable Ambrosio, Davey Attending Unavailable Javon, Eakly Attending Unavailable Ambrosio, Davey Primary Care Unavailable Javon, Kenny Referring Unavailable Ambrosio, Davey Primary Care Unavailable Soraya Amador Attending Unavail able Soraya Amador Referring Unavail able Ambrosio, Davey Primary Care Unavailable Soraya Amador Attending Unavail able Soraya Amador Referring Unavail able Javon, Eakly Attending Unavailable Ambrosio, Davey Primary Care Unavailable Javon, Kenny Referring Unavailable Ambrosio, Davey Primary Care Unavailable Rehana Randlema Attending Unavailable Vellanki, Shyla Referring Unavailable Araceli Brothers Attending Unavailable [place], Araceli Referring Unavailable Ambrosio, Davey Primary Care Unavailable Javon, Kenny Referring Unavailable Ambrosio, Davey Primary Care Unavailable Javon, Eakly Attending Unavailable Ambrosio, Davey Primary Care Unavailable Javon, Kenny Attending Unavailable Javon, Eakly Referring Unavailable Ambrosio, Davey Referring Unavailable Ambrosio, Davey Primary Care Unavailable Soraya Amador Attending Unavail able Ambrosio, Davey Referring Unavailable Ambrosio, Davey Primary Care Unavailable Angie Molina Attending Unavailable Ambrosio, Davey Referring Unavailable Ambrosio, Davey Primary Care Unavailable Soraya Amador Attending Unavail able Ambrosio, Davey Referring Unavailable Ambrosio, Davey Primary Care Unavailable Timur Simpson Attending Unavailable Ambrosio, Davey Referring Unavailable Ambrosio, Davey Primary Care Unavailable Soraya Amador Attending Unavail able Javon, Kenny Referring Unavailable Ambrosio, Davey Primary Care Unavailable Javon, Kenny Attending Unavailable Javon, Eakly Attending Unavailable Ambrosio, Davey Primary Care Unavailable Ambrosio, Davey Primary Care Unavailable Ashlee Freeman Attending Unavailable Javon, Kenny Attending Unavailable Ambrosio, Davey Referring Unavailable Ambrosio, Davey Primary Care Unavailable Ambrosio, Davey Primary Care Unavailable Timur Simpson Consulting Unavailable Timur Simpson Attending Unavailable Timur Simpson Referring Unavailable Ambrosio, Davey Primary Care Unavailable Soraya Amador Attending Unavail able Soraya Amador Referring Unavail able Ambrosio, Davey Primary Care Unavailable Shyla Randle Attending Unavailable Shyla Randle Referring Unavailable Allergies Allergy Classification Reported Allergen(s) Allergy Type Date of Onset Reaction(s) Facility (20 sources) Codeine; Translations: [CODEINE] Drug Allergy 02-14-20 05 GI Upset [facility] (14 sources) Sulfonamides (Antibiotic); Translations: [SULFA (SULFONAMIDE ANTIBIOTICS)] Allergy to substance 01-06-20 vomitting, Itching [facility] (20 sources) methylPREDNISolone; Translations: [METHYLPREDNISOLONE] Drug Allergy 09-25-19 07 Itching [facility] Work Phone: (20 sources) oxyCODONE; Translations: [OXYCODONE] Drug Allergy 01-31-20 24 Other: See Comments [facility] (18 sources) Sulfonamides (Antibiotic) Drug Allergy 01-31-20 24 Hives [facility] (12 sources) Betamethasone; Translations: [BETAMETHASONE DIPROPIONATE] Drug Allergy 03-03-20 Itching [facility] (6 sources) Omeprazole Drug Allergy 05-14-19 25 Vomiting [facility] (1 source) Codeine Drug Allergy 09-06-19 [facility] (1 source) methylPREDNISolone Drug Allergy 09-06-19 [facility] (1 source) Omeprazole Drug Allergy 09-06-19 [facility] (1 source) oxyCODONE Drug Allergy 09-06-19 [facility] (1 source) Sulfonamides (Antibiotic) Drug allergy (disorder) 09-06-19 [facility] Medications Current Medications Medication Drug Class(es) Dates Sig (Normalized) Sig (Original) acetaminophen 325 mg oral tablet (16 sources) Start: 03-31-2024 take 2 tablets by mouth every four hours as needed acetaminophen (TYLENOL) 325 mg tablet Take 2 tablets by mouth every 4 hours as needed (for mild pain; do not exceed more than 4000mg of Tylenol in a 24 hr period.). 100 tablet 03/31/2024 Active Start: 06-09-2020 End: 01-05-2022 take 2 tablets by mouth every eight hours as needed for pain Acetaminophen 500 MG tablet Discontinued 1000 mg PO EVERY 8 HOURS NEEDED as needed for Pain Score 1-10 June 09, 2020 12:00pm January 05, 2022 10:17am Start: 06-09-2020 End: 01-05-2022 take 1000 mg by mouth every eight hours as needed Acetaminophen Discontinued 1000 MG PO EVERY 8 HOURS NEEDED June 09, 2020 11:00am January 05, 2022 9:17am aspirin 81 mg delayed release oral tablet (8 sources) Platelet Aggregation Inhibitor, Nonsteroidal Anti-inflammatory Drug Start: 04-10-2024 Aspirin (Adult Lo w Dose Aspirin) 81 mg tablet,delayed release (DR/EC) Active 81 mg PO daily April 10, 2024 1:00am Start: 04-01-2024 take 1 tablet by reed th once daily aspirin 81 mg chewable tablet Take 1 tablet by mouth once daily. 90 tablet 04/01/2024 Active cholecalciferol 0.025 mg oral capsule (20 sources) Vitamin D Start: 05-14-2024 take 1 capsule by mouth once daily Cholecalciferol (Vitamin D3) 25 mcg (1,000 unit) capsule Active 25 ug PO daily May 14, 2024 1:00am Start: 08-18-2013 End: 04-10-2024 take 1 capsule by mouth once daily Cholecalciferol (Vitamin D3) 1,000 UNIT capsule Discontinued 1000 U PO DAILY August 18, 2013 12:00am April 10, 2024 2:47pm COMPOUNDED PRESCRIPTION (20 sources) Start: 06-22-2009 COMPOUNDED PRE SCRIPTION takes otc vit d 0 06/22/2009 Suspended Start: 06-22-2009 COMPOUNDED PRE SCRIPTION takes otc move free as directed 0 06/22/2009 Suspended Start: 06-22-2009 COMPOUNDED PRE SCRIPTION takes otc vit d 0 06/22/2009 Active Start: 06-22-2009 COMPOUNDED PRE SCRIPTION takes otc move free as directed 0 06/22/2009 Active furosemide 20 mg oral tablet (2 sources) Loop Diuretic Start: 03-31-2024 take 1 tablet by mouth once daily furosemide (LASIX) 20 mg tablet Take 1 tablet by mouth once daily for 7 days. 7 tablet 03/31/2024 Active Hdsxzsek-Nknry-Ziol u-Cf Borate ([facility] [employer] [facility]) 750 mg-100 mg- 1.65 mg-108 mg tablet (12 sources) Start: 05-14-2024 take 1 tablet by mouth once daily Sqvpplff-Khsxq-Ccsb u-Cf Borate ([facility] [employer]) 750 mg-100 mg- 1.65 mg-108 mg tablet Active {tbl} PO DAILY May 14, 2024 1:00am Start: 01-02-2024 End: 04-10-2024 take 1 tablet by mouth once daily Ytyzybqn-Elnam-Ycgfe-Cf Borate ([employer] [facility] [employer]) 750 mg-100 mg- 1.65 mg-108 mg tablet Discontinued 1 {tbl} PO DAILY January 02, 2024 12:00am April 10, 2024 2:49pm 24 hr metoprolol succinate 50 mg extended release oral tablet (20 sources) beta-Adrenergic Jw Start: 09-05-2024 take 4 tablets by mouth once daily Metoprolol Succinate 50 mg tablet extended release 24 hr Active 12.5 mg PO daily September 05, 2024 7:43am Start: 06-24-2024 End: 09-05-2024 take 2 tablets by mouth once daily Metoprolol Succinate 50 mg tablet extended release 24 hr Discontinued 25 mg PO daily June 24, 2024 7:47am September 05, 2024 7:43am Start: 06-24-2024 End: 06-24-2024 take 2 tablets by mouth twice daily Metoprolol Succinate 50 mg tablet extended release 24 hr Discontinued 25 mg PO TWICE A DAY June 24, 2024 7:46am June 24, 2024 7:48am Start: 03-31-2024 End: 06-24-2024 take 1 tablet by mouth twice daily Metoprolol Succinate 50 mg tablet extended release 24 hr Discontinued 50 mg PO TWICE A DAY 180 May 06, 2024 9:37am June 24, 2024 7:46am mupirocin 0.02 mg/mg topical ointment (4 sources) RNA Synthetase Inhibitor Antibacterial Start: 03-04-2024 End: 03-31-2024 mupirocin (BACTROBAN) 2 % ointment Apply a small amount in each nostril using a cotton swab twice the day before surgery and once the morning of surgery. 22 g 03/04/2024 03/31/2024 Discontinued pantoprazole 20 mg delayed release oral tablet (20 sources) Proton Pump Inhibitor Start: 01-05-2022 take 1 tablet by mouth once daily Pantoprazole (Protonix) 20 mg tablet,delayed release (DR/EC) Active 20 mg PO DAILY January 05, 2022 12:00am predniSONE 10 mg oral tablet (20 sources) Start: 02-12-2024 predniSONE (DELTASONE) 10 mg tablet Take 10 mg by mouth as needed (arthritis). 02/12/2024 Active Start: 06-09-2020 End: 06-18-2020 take 2 tablets by mouth once daily Prednisone 20 MG tablet Discontinued 40 mg PO DAILY June 09, 2020 1:00am June 18, 2020 5:26pm 40mg daily for 5 days Start: 06-09-2020 End: 06-18-2020 take 40 mg by mouth once daily Prednisone Discontinued 40 MG PO DAILY June 09, 2020 12:00am June 18, 2020 4:26pm 40mg daily for 5 days Completed/Discontinued Medications Medication Drug Class(es) Dates Sig (Normalized) Sig (Original) acetaminophen 325 mg / oxyCODONE hydrochloride 5 mg oral tablet (14 sources) Opioid Agonist Start: 06-09-2020 End: 06-09-2020 Oxycodone-Acetamino phen 1 TABLET tablet Discontinued 1 {tbl} PO EVERY 6 HOURS NEEDED as needed for Pain 03 11June 09, 2020 June 06, 2020 1:00am June 09, 2020 11:59am Start: 06-09-2020 End: 06-09-2020 Oxycodone-Acetaminophen 1 TA BLET tablet Discontinued 1 {tbl} PO EVERY 6 HOURS NEEDED as needed for Pain 03 11June 09, 2020 June 06, 2020 1:00am June 09, 2020 11:59am Start: 06-09-2020 End: 06-09-2020 Oxycodone-Acetaminophen 1 TA BLET tablet Discontinued 1 {tbl} PO EVERY 6 HOURS NEEDED as needed for Pain 12 June 09, 2020 June 06, 2020 1:00am June 09, 2020 11:59am Start: 06-09-2020 End: 06-09-2020 Oxycodone-Acetaminophen 1 TA BLET tablet Discontinued 1 {tbl} PO EVERY 6 HOURS NEEDED as needed for Pain 12 June 09, 2020 June 06, 2020 1:00am June 09, 2020 11:59am Start: 06-09-2020 End: 06-09-2020 Oxycodone-Acetaminophen 1 TA BLET tablet Discontinued 1 {tbl} PO EVERY 6 HOURS NEEDED as needed for Pain 12 June 09, 2020 June 06, 2020 1:00am June 09, 2020 11:59am Start: 06-09-2020 End: 06-09-2020 Oxycodone-Acetaminophen 1 TA BLET tablet Discontinued 1 {tbl} PO EVERY 6 HOURS NEEDED as needed for Pain 03 11June 09, 2020 June 06, 2020 1:00am June 09, 2020 11:59am Start: 06-09-2020 End: 06-09-2020 take 1 tablet by mouth every six hours as needed Oxycodone-Acetaminophen Discontinued 1 TABLET PO EVERY 6 HOURS NEEDED 03 11June 09, 2020 June 09, 2020 10:59am Start: 06-09-2020 End: 06-09-2020 take 1 tablet by mouth every six hours as needed Oxycodone-Acetaminophen Discontinued 1 TABLET PO EVERY 6 HOURS NEEDED 03 11June 09, 2020 June 09, 2020 11:59am Start: 06-09-2020 End: 06-09-2020 take 1 tablet by mouth every six hours as needed Oxycodone-Acetaminophen Discontinued 1 TABLET PO EVERY 6 HOURS NEEDED 03 11June 09, 2020 June 09, 2020 11:59am Start: 06-09-2020 End: 06-09-2020 take 1 tablet by mouth every six hours as needed Oxycodone-Acetaminophen Discontinued 1 TABLET PO EVERY 6 HOURS NEEDED 03 11June 09, 2020 June 09, 2020 10:59am Start: 06-09-2020 End: 06-09-2020 take 1 tablet by mouth every six hours as needed Oxycodone-Acetaminophen Discontinued 1 TABLET PO EVERY 6 HOURS NEEDED 03 11June 09, 2020 June 09, 2020 10:59am Start: 06-09-2020 End: 06-09-2020 take 1 tablet by mouth every six hours as needed Oxycodone-Acetaminophen Discontinued 1 TABLET PO EVERY 6 HOURS NEEDED 03 11June 09, 2020 June 09, 2020 10:59am Start: 06-09-2020 End: 06-09-2020 take 1 tablet by mouth every six hours as needed Oxycodone-Acetaminophen Discontinued 1 TABLET PO EVERY 6 HOURS NEEDED 03 11June 09, 2020 June 09, 2020 11:59am Start: 06-04-2020 End: 06-09-2020 take 1 tablet by mouth every six hours as needed Oxycodone-Acetaminophen Discontinued 1 TABLET PO EVERY 6 HOURS NEEDED 03 11June 04, 2020 3:39pm June 09, 2020 11:59am amiodarone hydrochloride 200 mg oral tablet (8 sources) Antiarrhythmic Start: 04-10-2024 End: 05-14-2024 take 1 tablet by mouth once daily Amiodarone 200 mg tablet Discontinued 200 mg PO daily April 10, 2024 1:00am May 14, 2024 4:42pm Start: 03-31-2024 End: 05-10-2024 take 1 tablet by mouth twice daily, then take 1 tablet by mouth once daily amiodarone (PACERONE) 200 mg tablet Take 1 tablet by mouth two times a day for 10 days, THEN 1 tablet once daily. 50 tablet 03/31/2024 Active amLODIPine 2.5 mg oral tablet (6 sources) Dihydropyridine Calcium Channel Jw Start: 05-14-2024 End: 09-05-2024 take 1 tablet by mouth once daily Amlodipine (Norvasc) 2.5 mg tablet Discontinued 2.5 mg PO daily May 14, 2024 1:00am September 05, 2024 7:41am On Hold: low BP clobetasol propionate 0.0005 mg/mg topical ointment (15 sources) Corticosteroid Start: 06-09-2022 End: 04-10-2024 Clobetasol 0.05 % ointment Discontinued 1 NMA TOPICAL AT BEDTIME as needed for it January 02, 2024 1:02pm April 10, 2024 2:47pm apply thin layer; massage gently into affected area nightly x 6 weeks then 1-2x weekly cyclobenzaprine hydrochloride 10 mg oral tablet (14 sources) Muscle Relaxant Start: 06-09-2020 End: 06-18-2020 take 1 tablet by mouth three times daily as needed for pain Cyclobenzaprine 10 MG tablet Discontinued 10 mg PO 3 TIMES DAILY NEEDED as needed for muscle pain June 09, 2020 1:00am June 18, 2020 5:26pm diazePAM 5 mg oral tablet (17 sources) Benzodiazepine Start: 12-14-2023 End: 01-24-2024 take 1 tablet by mouth at bedtime as needed for anxiety Diazepam 5 mg tablet Discontinued 5 mg PO AT BEDTIME as needed for anxiety December 14, 2023 12:00am January 24, 2024 1:11pm Start: 03-20-2022 End: 06-08-2022 take 1 tablet by mouth once for anxiety Diazepam (Valium) 5 mg tablet Discontinued 5 mg PO ONCE as needed for anxiety March 20, 2022 1:00am June 08, 2022 1:34pm Take 1 tablet 30 minutes before MRI twice-daily diclofenac epolamine 0.013 mg/mg medicated patch (9 sources) Nonsteroidal Anti-inflammatory Drug Start: 07-13-2009 End: 03-03-2024 diclofenac epolamine(FLECTOR 1.3 % ADHESIVE PATCH) Indications: Hip pain Apply one patch twice daily 60 1 07/13/2009 03/03/2024 Discontinued doxycycline monohydrate 100 mg oral capsule (6 sources) Tetracycline-class Drug Start: 01-02-2024 End: 01-17-2024 take 1 capsule by mouth once daily Doxycycline Monohydrate 100 mg capsule Discontinued 100 mg PO daily January 02, 2024 12:00am January 17, 2024 7:14am estradiol 0.5 mg oral tablet (9 sources) Estrogen Start: 06-08-2022 End: 01-02-2024 take 1 tablet by mouth once daily Estradiol (Estrace) 0.5 mg tablet Discontinued 0.5 mg PO DAILY June 08, 2022 1:00am January 02, 2024 1:02pm off 5 days; repeat cycle gabapentin 300 mg oral capsule (20 sources) Anti-epileptic Agent Start: 06-04-2020 End: 07-04-2020 take 1 capsule by mouth three times daily Gabapentin 300 MG capsule Discontinued 300 mg PO THREE TIMES A DAY 89 30 June 04, 2020 1:00am July 03, 2020 12:00am July 04, 2020 12:03am Start: 07-27-2009 End: 03-03-2024 gabapentin(NEURONTIN 100 MG CAP) Take 1-2 capsules once daily 60 5 07/27/2009 03/03/2024 Discontinued hydroCHLOROthiazide 12.5 mg / lisinopril 20 mg oral tablet (6 sources) Thiazide Diuretic, Angiotensin Converting Enzyme Inhibitor Start: 12-14-2023 End: 01-02-2024 Lisinopril-Hydrochlorothiazi de 20-12.5 mg tablet Discontinued 0.5 {tbl} PO daily December 14, 2023 12:00am January 02, 2024 2:24pm hydroxychloroquine sulfate 200 mg oral tablet (12 sources) Antimalarial, Antirheumatic Agent Start: 01-05-2022 End: 02-28-2022 take 1 tablet by mouth once daily Hydroxychloroquine (Plaquenil) 200 mg tablet Discontinued 200 mg PO DAILY January 05, 2022 12:00am February 28, 2022 10:33am lansoprazole 30 mg delayed release oral capsule (20 sources) Proton Pump Inhibitor Start: 06-09-2011 End: 03-03-2024 take 1 capsule by mouth once daily Lansoprazole 30 MG capsule Discontinued 30 mg PO DAILY August 18, 2013 12:00am June 14, 2020 1:05pm leflunomide 10 mg oral tablet (14 sources) Antirheumatic Agent Start: 06-06-2020 End: 01-05-2022 take 1 tablet by mouth once daily Leflunomide 10 MG tablet Discontinued 10 mg PO DAILY June 06, 2020 1:00am January 05, 2022 10:17am lisinopril 20 mg oral tablet (20 sources) Angiotensin Converting Enzyme Inhibitor Start: 01-02-2024 End: 04-10-2024 take 1 tablet by mouth once daily Lisinopril 20 mg tablet Discontinued 20 mg PO daily January 02, 2024 12:00am April 10, 2024 2:47pm Start: 06-09-2020 End: 12-14-2023 take 1 tablet by mouth once daily Lisinopril 10 MG tablet Discontinued 10 mg PO DAILY June 09, 2020 1:00am December 14, 2023 2:35pm magnesium oxide 400 mg oral capsule (20 sources) Start: 04-10-2024 End: 06-24-2024 take 1 capsule by mouth twice daily Magnesium Oxide 400 mg magnesium capsule Discontinued 400 mg PO TWICE A DAY May 05, 2024 10:47am June 24, 2024 7:48am Start: 03-31-2024 take 1 tablet by reed th twice daily magnesium oxide (MAG-OX) 400 mg (241.3 mg magnesium) tablet Take 1 tablet by mouth two times a day. 60 tablet 03/31/2024 Active naproxen sodium 220 mg oral tablet (14 sources) Nonsteroidal Anti-inflammatory Drug Start: 08-18-2013 End: 08-27-2013 take 1 tablet by mouth every twelve hours as needed for pain Naproxen Sodium (Aleve) 220 MG tablet Discontinued 220 mg PO EVERY 12 HOURS NEEDED as needed for Pain August 18, 2013 12:00am August 27, 2013 6:03pm omega-3 fatty acids(FISH OIL 500 MG CAP) (9 sources) Start: 07-07-2009 End: 03-03-2024 omega-3 fatty acids(FISH OIL 500 MG CAP) Take one(1) capsule daily. 0 07/07/2009 03/03/2024 Discontinued Start: 07-07-2009 omega-3 fatty acids(FISH OIL 500 MG CAP) Take one(1) capsule daily. 0 07/07/2009 Active oxyCODONE hydrochloride 5 mg oral tablet (20 sources) Opioid Agonist Start: 01-28-2024 End: 02-11-2024 take 5-10 mg by mouth every four hours as needed for pain Oxycodone 5 mg Tablet Discontinued 5 - 10 mg PO EVERY 4 HOURS NEEDED as needed for Pain Score 4-10 10 5 January 28, 2024 February 11, 2024 9:50am Start: 06-09-2020 End: 06-12-2020 Oxycodone 5 MG tablet Discon tinued 5 - 10 mg PO EVERY 6 HOURS NEEDED as needed for Pain Score 6-10 20 3 June 09, 2020 June 11, 2020 1:00am June 12, 2020 1:04am 5 to 10 mg every 6 as needed for pain. polyethylene glycol 3350 96586 mg powder for oral solution (14 sources) Osmotic Laxative Start: 06-09-2020 End: 01-05-2022 take 17 g by mouth once daily Polyethylene Glycol 3350 17 GM packet Discontinued 17 g PO DAILY June 09, 2020 1:00am January 05, 2022 10:17am spironolactone 25 mg oral tablet (9 sources) Aldosterone Antagonist Start: 12-20-2010 End: 03-03-2024 take 1 tablet by mouth once daily spironolactone 25 mg ORAL tablet Indications: Essential hypertension, benign Take 1 tablet by mouth once daily. 90 tablet 3 12/20/2010 03/03/2024 Discontinued traMADol hydrochloride 50 mg oral tablet (14 sources) Opioid Agonist Start: 08-18-2013 End: 08-27-2013 take 1 tablet by mouth every four hours as needed for pain Tramadol 50 MG tablet Discontinued 50 mg PO EVERY 4 HOURS NEEDED as needed for Pain August 18, 2013 12:00am August 27, 2013 6:02pm valACYclovir 1000 mg oral tablet (9 sources) Herpesvirus Nucleoside Analog DNA Polymerase Inhibitor, Herpes Simplex Virus Nucleoside Analog DNA Polymerase Inhibitor, Herpes Zoster Virus Nucleoside Analog DNA Polymerase Inhibitor Start: 07-07-2009 End: 03-03-2024 valacyclovir hcl(VALTREX 1 G TAB) Indications: Shingles Take one(1) tablet three times daily x past 7 days. 21 0 07/07/2009 03/03/2024 Discontinued Problems Active Problems Problem Classification Problem Date Documented Date Episodic/Chronic Cardiac dysrhythmias (1 source) Unspecified atrial fibrillation; Translations: [Unspecified atrial fibrillation] Onset: 05-14-19 Chronic Conditions associated with dizziness or vertigo (6 sources) Vertigo; Translations: [Dizziness and giddiness] 12-14-2023 Episodic Disorders of lipid metabolism (19 sources) Mixed hypercholesterolemia and hypertriglyceridemia; Translations: [Mixed hyperlipidemia] Onset: 06-23-19 10 06-22-2009 Chronic Esophageal disorders (20 sources) Gastroesophageal reflux disease; Translations: [Gastro-esophageal reflux disease without esophagitis] Onset: 03-09-2010-18-2023 Chronic Comment on above: FAIRLY CONTROLLED WI TH PROTONIX/MYLANTA PRN Essential hypertension (20 sources) Hypertensive disorder; Translations: [Essential (primary) hypertension] Onset: 03-09-2006-17-2020 Chronic Headache; including migraine (6 sources) Migraine variants; Translations: [Other migraine, not intractable, without status migrainosus] 12-14-2023 Chronic Heart valve disorders (20 sources) Mitral valve disorder; Translations: [Rheumatic mitral valve disease, unspecified] Onset: 08-11-19 Resolved : 08-11-1910-18-2023 Chronic Comment on above: LEAKY Heart valve disorders (7 sources) Heart murmur; Translations: [Cardiac murmur, unspecified] Onset: 07-11-1912-14-2023 Episodic Malaise and fatigue (7 sources) Fatigue; Translations: [Other fatigue] Onset: 09-06-1906-06-2024 Episodic Menopausal disorders (16 sources) Atrophy of vagina; 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 continue fu PRN Nutritional deficiencies (6 sources) Vitamin D deficiency; Translations: [Vitamin D deficiency, unspecified] 01-24-2024 Chronic Comment on above: ON SUPPLEMENT Osteoarthritis (20 sources) Arthritis; Translations: [Unspecified osteoarthritis, unspecified site] Onset: 03-09-2006-17-2020 Chronic Other aftercare (1 source) Surgical follow-up; Translations: [Encounter for follow-up examination after completed treatment for conditions other than malignant neoplasm] 03-31-2024 Episodic Other diseases of bladder and urethra (6 sources) Overactive bladder; Translations: [Overactive bladder] 12-14-2023 Chronic Other endocrine disorders (6 sources) Hypoglycemia; Translations: [Hypoglycemia, unspecified] 12-14-2023 Chronic Other gastrointestinal disorders (19 sources) Irritable bowel syndrome; Translations: [Irritable bowel syndrome without diarrhea] Onset: 03-09-2010-18-2023 Chronic Other lower respiratory disease (7 sources) Dyspnea; Translations: [Shortness of breath] 02-26-2024 Episodic Other skin disorders (11 sources) Lichen sclerosus et atrophicus; 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 recommend clobetasol. improved with intervention, continue to monitor. Residual codes; unclassified (4 sources) Transition of care; Translations: [Other specified health status] Onset: 03-29-20 24 03-29-2024 Episodic Residual codes; unclassified (6 sources) Absent kidney; Translations: [Acquired absence of kidney] 12-14-2023 Episodic Residual codes; unclassified (16 sources) History of repair of mitral valve; Translations: [Other specified postprocedural states] 04-14-2024 Episodic Rheumatoid arthritis and related disease (1 source) Inflammatory polyarthropathy; Translations: [Inflammatory polyarthropathy] Onset: 09-05-19 Chronic Spondylosis; intervertebral disc disorders; other back problems (14 sources) Arthritis of facet joint of lumbar spine; Translations: [Spondylosis without myelopathy or radiculopathy, lumbar region] 06-14-2022 Chronic Spondylosis; intervertebral disc disorders; other back problems (20 sources) Sciatica; Translations: [Sciatica, left side] Episodic Unclassified (12 sources) Status post mitral valve repair; Translations: [Z98.890 - Other specified postprocedural states] Unclassified (1 source) Presence of neurostimulator; Translations: [Presence of neurostimulator] Onset: 01-07-20 Past or Other Problems Problem Classification Problem Date Documented Da te Episodic/Chronic Abdominal hernia (20 sources) Diaphragmatic hernia; Translations: [Diaphragmatic hernia without obstruction or gangrene] Onset: 07-13-2009 07-13-2009 Episodic Complications of surgical procedures or medical care (17 sources) Atrial fibrillation; Translations: [Other postprocedural complications and disorders of the circulatory system, not elsewhere classified] Onset: 05-22-2024 04-10-2024 Episodic Diverticulosis and diverticulitis (19 sources) Diverticulosis of colon; Translations: [Diverticulosis of large intestine without perforation or abscess without bleeding] Onset: 06-26-2005 Resolved: 12-13-2006 10-18-2023 Chronic Fluid and electrolyte disorders (4 sources) Hypervolemia; Translations: [Fluid overload, unspecified] Onset: 03-26-2024 03-26-2024 Episodic Gastritis and duodenitis (19 sources) Acute gastritis; Translations: [Acute gastritis without bleeding] Onset: 07-13-2009 07-13-2009 Episodic Hemorrhoids (19 sources) Internal hemorrhoids; Translations: [Other hemorrhoids] Onset: 06-26-2005 Resolved: 12-13-2006 10-18-2023 Episodic Nonspecific chest pain (20 sources) Chest pain; Translations: [Chest pain, unspecified] Onset: 07-13-2009 07-13-2009 Episodic Other connective tissue disease (19 sources) Lateral epicondylitis; Translations: [Lateral epicondylitis, unspecified elbow] Onset: 07-12-2005 10-18-2023 Episodic Other connective tissue disease (19 sources) Plantar fascial fibromatosis; Translations: [Plantar fascial fibromatosis] Onset: 07-12-2005 10-18-2023 Episodic Other connective tissue disease (19 sources) Enthesopathy of ankle AND/OR tarsus; Translations: [Other enthesopathy of unspecified foot and ankle] Onset: 09-21-2006 10-18-2023 Episodic Other gastrointestinal disorders (19 sources) Diarrhea; Translations: [Diarrhea, unspecified] Onset: 06-26-2005 Resolved: 12-13-2006 10-18-2023 Episodic Other lower respiratory disease (1 source) Shortness of breath; Translations: [Shortness of breath] Onset: 03-03-2024 Episodic Other lower respiratory disease (1 source) Dyspnea, unspecified; Translations: [Dyspnea, unspecified] Onset: 01-02-2024 Episodic Other nervous system disorders (4 sources) Postoperative pain ; Translations: [Other acute postprocedural pain] Onset: 03-25-2024 03-26-2024 Episodic Sprains and strains (19 sources) Sprain of ankle; Translations: [Sprain of unspecified ligament of unspecified ankle, initial encounter] Onset: 09-25-2006 10-18-2023 Episodic Syncope (20 sources) Syncope and collapse; Translations: [Syncope and collapse] Onset: 08-10-2005 Resolved: 01-11-2016 01-11-2016 Episodic Results Test Name Value Interpretation Reference Range Facility Cardiology Visit Reporton Cardiology Visit Report [facility] [address] [place], [place] [address] OFFICE VISIT Date of Service: 09/05/24 MR#: [id number] Acct: [id number] Name: HILDA MULLINS Rep #: [id number] : 1945 Provider: MATILDE Chen Age/Sex: 78/F Location[place] [facility] [place] Status: Signed HPI HPI History of Present Illness Details: 78-year-old lady with a previous history of recurrent syncopal spells which grew back at least 60 years. On this last event she was at a neighborhood event and then she suddenly felt herself getting warm she felt that she was going to pass out she was having some visual problems she became diaphoretic and pale and then apparently passed out. Neighbor felt that she could not feel her pulse and they asked her to see the physician. This event has been attributed to blood sugar issues for many years. Her passing out spells at 1 time culminated after her wedding in a cardiac catheterization when she was diagnosed as having mitral valve prolapse. She has never had an echocardiogram. She has a few of these episodes every year and she can always tell it coming on. She has been on antihypertensive therapy but has not had any chest pain to suggest angina. She has been compliant with all her medications. She is completely asymptomatic otherwise with no shortness of breath. Her physical exam demonstrates clear lung gaona and midsystolic click at 3/6 holosystolic murmur radiating towards the axilla no pedal edema and her electrocardiogram demonstrating sinus rhythm with a rate of 84 bpm. Echocardiogram in December 2023 demonstrated an ejection fraction of 65%, left atrium severely enlarged, mitral valve posterior leaflet with prolapse with moderate to severe anterior directed mitral valve regurg. FREDERIC on January 07, 2024 demonstrated moderately severe anterior directed mitral valve insufficiency. She underwent a diagnostic heart catheterization on January 17, 2024 which demonstrated mild coronary artery disease, preserved ejection fraction with moderately severe mitral valve regurg with mitral valve prolapse. She was referred to [facility] for mitral valve repair. Patient did undergo a mitral valve repair on March 24, 2024 at [facility]. Postoperatively she had atrial fibs with RVR. She was started on IV Amio however this was discontinued given that she had sinus bradycardia with junctional rhythm however she went back into atrial for with RVR, amiodarone drip was restarted. Rates improved. She was also noted to have mild hypotension, this was felt to be related to her Lasix in the a.m. She was discharged home on amiodarone twice a day for 1 week then once a day. After that she could be transition to Toprol. She was also noted to have bilateral pleural effusions. She did not require a thoracentesis due to it being too small to tap. She was also noted to be anemic. Echocardiogram evaluation June 2024 showed LV function 55% and pulmonary artery systolic pressure of 30 mmHg. She did complete cardiac rehab. She called our office last week with concerns over lightheadedness, generalized not feeling well when she took her blood pressure her blood pressure was on the low side. She stopped her amlodipine. She states that since stopping her amlodipine. She does feel better. She does have an event monitor that was ordered for her. She has not had any palpitations. She has not had any syncopal events but has had near syncope. Intake Vital Signs 05/14/24 15:22 06/16/24 07:20 09/05/24 06:10 Height 5 ft 2 in 5 ft 2 in 5 ft 2 in Weight: 153 lb BMI 28.0 BP 119/78 Blood Pressure Location Lt brachial Position Sitting Respiration 18 Pulse 81 Pulse Source Monitor Pulse Oximetry (%) 95 Intake Visit Reasons: 3 M FU Medication Assistant Required: No Is patient in pain?: No Allergies oxycodone Allergy (Severe, Verified 09/05/24 07:40) Nausea omeprazole Allergy (Intermediate, Verified 09/05/24 07:40) Vomiting Sulfa (Sulfonamide Antibiotics) Allergy (Mild, Verified 09/05/24 07:40) Itching codeine Allergy (Verified 09/05/24 07:40) Vomiting methylprednisolone (From Medrol) Adverse Reaction (Severe, Verified 09/05/24 07:40) Itching Medications ???Medication ???Instructions ???Recorded ???Confirmed ???Type pantoprazole 20 mg tablet,delayed 20 mg PO DAILY 01/05/22 09/05/24 History release (Protonix) aspirin 81 mg tablet,delayed 81 mg PO QDAY 04/10/24 09/05/24 Hi story release (Adult Low Dose Aspirin) cholecalciferol (vitamin D3) 25 25 mcg PO QDAY 05/14/24 09/05/24 H istory mcg (1,000 unit) capsule glucosam 750 mg-chondroi 100 tab PO DAILY 05/14/24 09/05/24 His tory mg-hyalur 1.65 mg-CF borate 108 mg tablet ([facility]) metoprolol succinate 50 mg 12.5 mg PO QDAY 09/05/24 History tabl (more content not included)... Normal [facility] Absolute lymphocyte countOrd ered By: Shyla Randle on 08-29-2024 Lymphocytes Auto (Unsp spec) [#/Vol] 1.88 10*3/uL 0.83-4.51 [facility] Absolute neutrophil countOrd ered By: Shylalisa Randle on 08-29-2024 Neutrophils (Bld) [#/Vol] 7.2 10*3/uL 2.0-7.7 [facility] Anion gap in Serum or Plasma Ordered By: Shyla Randle on 08-29-2024 Anion gap [Moles/Vol] 13 mmol/L 5-15 [facility] Automated lymphocyte count a s percentage of total leukocytesOrdered By: Shylalisa Randle on 08-29-2024 Lymphocytes/100 WBC Auto (Unsp spec) 18.7 % Low 19-41 [facility] BUN/creatinine ratioOrdered By: [facility] on 08-29-2024 Urea nitrogen/Creatinine [Mass ratio] 21.8 mg/mg High 10-20 [facility] Basophil percentageOrdered B y: Shyla Randle on 08-29-2024 Basophils/100 WBC (Bld) 0.7 % 0-1 [facility] Bilirubin, totalOrdered By: Shylalisa Randle on 08-29-2024 Bilirubin [Mass/Vol] 0.45 mg/dL 0.00-1.30 [facility] CBC W/Diff, Automatedon 08-08 Absolute Lymph 1.88 X10 3/uL Normal 0.83-4.51 [facility] Comment on above: Performed By: #### L 100.0100, L501.6710, L500.4050, L101.9900 ####[facility] [address] [place], [address] Absolute Neut 7.2 X10 3/uL Normal 2.0-7.7 [facility] Comment on above: Performed By: #### L 100.0100, L501.6710, L500.4050, L101.9900 ####[facility] [address] [place], [address] Basophils/100 WBC (Bld) 0.7 % Normal 0-1 [facility] Comment on above: Performed By: #### L 100.0100, L501.6710, L500.4050, L101.9900 ####[facility] [address] [place], [address] Eosinophils/100 WBC (Bld) 1.3 % Normal 0-5 [facility] Comment on above: Performed By: #### L 100.0100, L501.6710, L500.4050, L101.9900 ####[facility] [address] [place], [address] Erythrocyte distribution width (RBC) [Ratio] 15.9 % High 11.6-14.6 [facility] Comment on above: Performed By: #### L 100.0100, L501.6710, L500.4050, L101.9900 ####[facility] [address] [place], [address] Hematocrit (Bld) [Volume fraction] 41.5 % Normal 37-47 [facility] Comment on above: Performed By: #### L 100.0100, L501.6710, L500.4050, L101.9900 ####[facility] [address] [place], [address] Hemoglobin (Bld) [Mass/Vol] 12.8 g/dL Normal 12.0-15.0 [facility] Comment on above: Performed By: #### L 100.0100, L501.6710, L500.4050, L101.9900 ####[facility] [address] [place], [address] IG% 0.400 Normal 0.0-0.9 [facility] Comment on above: Result Comment: IG% - Immature Granulocytes (promyelocytes, myelocytes and metamyelocytes) > 1% indicates that a LEFT SHIFT is Present. Performed By: #### L 100.0100, L501.6710, L500.4050, L101.9900 ####[facility] [address] [place], [address] Lymphocytes/100 WBC (Bld) 18.7 % Low 19-41 [facility] Comment on above: Performed By: #### L 100.0100, L501.6710, L500.4050, L101.9900 ####[facility] [address] [place], [address] MCH (RBC) [Entitic mass] 27.7 pg Normal 27.0-32.0 [facility] Comment on above: Performed By: #### L 100.0100, L501.6710, L500.4050, L101.9900 ####[facility] [address] [place], [address] MCHC (RBC) [Mass/Vol] 30.8 g/dL Low 32-36 [facility] Comment on above: Performed By: #### L 100.0100, L501.6710, L500.4050, L101.9900 ####[facility] [address] [place], [address] MCV (RBC) [Entitic vol] 89.8 fL Normal 81-99 [facility] Comment on above: Performed By: #### L 100.0100, L501.6710, L500.4050, L101.9900 ####[facility] [address] [place], [address] Monocytes/100 WBC (Bld) 7.7 % Normal 0-10 [facility] Comment on above: Performed By: #### L 100.0100, L501.6710, L500.4050, L101.9900 ####[facility] [address] [place], [address] Neutrophils/100 WBC (Bld) 71.2 % High 47-70 [facility] Comment on above: Performed By: #### L 100.0100, L501.6710, L500.4050, L101.9900 ####[facility] [address] [place], [address] Nucleated RBC (Bld) [#/Vol] 0 10*3/uL Normal 0-5 [facility] Comment on above: Performed By: #### L 100.0100, L501.6710, L500.4050, L101.9900 ####[facility] [address] [place], [address] Platelet mean volume (Bld) [Entitic vol] 13.4 fL High 6.2-12.0 [facility] Comment on above: Performed By: #### L 100.0100, L501.6710, L500.4050, L101.9900 ####[facility] [address] [place], [address] Platelets (Bld) [#/Vol] 226 10*3/uL Normal 150-450 [facility] Comment on above: Performed By: #### L 100.0100, L501.6710, L500.4050, L101.9900 ####[facility] [address] [place], [address] RBC (Bld) [#/Vol] 4.62 10*6/uL Normal 4.2-5.4 [facility] Comment on above: Performed By: #### L 100.0100, L501.6710, L500.4050, L101.9900 ####[facility] [address] [place], [address] RDW SD 53.0 fl High 35.1-43.9 [facility] Comment on above: Performed By: #### L 100.0100, L501.6710, L500.4050, L101.9900 ####[facility] [address] [place], [address] WBC (Bld) [#/Vol] 10.0 10*3/uL Normal 4.4-11.0 [facility] Comment on above: Performed By: #### L 100.0100, L501.6710, L500.4050, L101.9900 ####[facility] [address] [place], [address] CRPon 08-29-2024 C-REACTIVE PROT 3.86 mg/L High 0.0-3.0 [facility] Comment on above: Performed By: #### L 100.0100, L501.6710, L500.4050, L101.9900 ####[facility] [address] [place], [address] Carbon dioxide, total [Moles /volume] in Central venous bloodOrdered By: Shyla Randle on 08-29-2024 CO2 [Moles/Vol] 23.8 mmol/L 21.0-32.0 [facility] Chloride assayOrdered By: Matilde Randle on 08-29-2024 Chloride [Moles/Vol] 104 mmol/L 98-108 [facility] Comprehensive Metabolic Prof ilon 08-29-2024 Albumin [Mass/Vol] 4.2 g/dL Normal 3.4-4.8 [facility] Comment on above: Performed By: #### L 100.0100, L501.6710, L500.4050, L101.9900 ####[facility] [address] [place], [address] Albumin/Globulin [Mass ratio] 1.4 {ratio} Normal 0.9-2.4 [facility] Comment on above: Performed By: #### L 100.0100, L501.6710, L500.4050, L101.9900 ####[facility] [address] [place], [address] ALK PHOS 77 U/L Normal 35-104 [facility] Comment on above: Performed By: #### L 100.0100, L501.6710, L500.4050, L101.9900 ####[facility] [address] [place], [address] ALT [Catalytic activity/Vol] 9 U/L Normal <=34 [facility] Comment on above: Performed By: #### L 100.0100, L501.6710, L500.4050, L101.9900 ####[facility] [address] [place], [address] AST [Catalytic activity/Vol] 24 U/L Normal <=31 [facility] Comment on above: Performed By: #### L 100.0100, L501.6710, L500.4050, L101.9900 ####[facility] [address] [place], [address] Bilirubin [Mass/Vol] 0.45 mg/dL Normal 0.00-1.30 [facility] Comment on above: Performed By: #### L 100.0100, L501.6710, L500.4050, L101.9900 ####[facility] [address] [place], [address] BUN/CRE 21.8 RATIO High 10-20 [facility] Comment on above: Performed By: #### L 100.0100, L501.6710, L500.4050, L101.9900 ####[facility] [address] [place], [address] Calcium [Mass/Vol] 9.8 mg/dL Normal 7.6-11.0 [facility] Comment on above: Performed By: #### L 100.0100, L501.6710, L500.4050, L101.9900 ####[facility] [address] [place], [address] Chloride [Moles/Vol] 104 mmol/L Normal 98-108 [facility] Comment on above: Performed By: #### L 100.0100, L501.6710, L500.4050, L101.9900 ####[facility] [address] [place], [address] CO2 [Moles/Vol] 23.8 mmol/L Normal 21.0-32.0 [facility] Comment on above: Performed By: #### L 100.0100, L501.6710, L500.4050, L101.9900 ####[facility] [address] [place], [address] Creatinine [Mass/Vol] 1.17 mg/dL Normal 0.70-1.20 [facility] Comment on above: Performed By: #### L 100.0100, L501.6710, L500.4050, L101.9900 ####[facility] [address] [place], [address] GAP 13 Normal 5-15 [facility] Comment on above: Performed By: #### L 100.0100, L501.6710, L500.4050, L101.9900 ####[facility] [address] [place], [address] GFR/1.73 sq M.predicted among non-blacks MDRD (S/P/Bld) [Vol rate/Area] 47 mL/min/{1.73_m2} Low >60 [facility] Comment on above: Result Comment: mL/m in/1.73m2 CKD-EPI Creatinine Equation (2020) Performed By: #### L 100.0100, L501.6710, L500.4050, L101.9900 ####[facility] [address] [place], [address] Globulin (S) [Mass/Vol] 3.1 g/dL Normal 2.2-4.2 [facility] Comment on above: Performed By: #### L 100.0100, L501.6710, L500.4050, L101.9900 ####[facility] [address] [place], [address] Glucose [Mass/Vol] 105 mg/dL High 70-99 [facility] Comment on above: Performed By: #### L 100.0100, L501.6710, L500.4050, L101.9900 ####[facility] [address] [place], [address] Potassium [Moles/Vol] 4.3 mmol/L Normal 3.3-5.1 [facility] Comment on above: Performed By: #### L 100.0100, L501.6710, L500.4050, L101.9900 ####[facility] [address] [place], [address] Sodium [Moles/Vol] 140 mmol/L Normal 133-145 [facility] Comment on above: Performed By: #### L 100.0100, L501.6710, L500.4050, L101.9900 ####[facility] [address] [place], [address] T PROT 7.4 g/dL Normal 5.9-8.4 [facility] Comment on above: Performed By: #### L 100.0100, L501.6710, L500.4050, L101.9900 ####[facility] [address] [place], [place], [address] Urea nitrogen [Mass/Vol] 26 mg/dL High 4-19 [facility] Comment on above: Performed By: #### L 100.0100, L501.6710, L500.4050, L101.9900 ####[facility] [address] [place], [address] Eosinophil percentageOrdered By: Shyla Randle on 08-29-2024 Eosinophils/100 WBC (Bld) 1.3 % 0-5 [facility] Erythrocyte Sed Rateon 08-29 SED RATE 27 mm/hr Normal 0-30 [facility] Comment on above: Performed By: #### L 500.2500 #### [facility] [address] [place], [place], [address] Erythrocyte distribution wid th ratioOrdered By: Shyla Randle on 08-29-2024 Erythrocyte distribution width (RBC) [Ratio] 15.9 % High 11.6-14.6 [facility] Erythrocyte distribution wid th standard deviationOrdered By: Shyla Randle on 08-29-2024 Erythrocyte distribution width (RBC) [Ratio] 53.0 fl High 35.1-43.9 [facility] Erythrocyte sedimentation ra teOrdered By: Shyla Randle on 08-29-2024 ESR (Bld) [Velocity] 27 mm/h 0-30 [facility] Glomerular filtration rate ( GFR) estimation/1.73 sq m using serum, plasma, or whole bOrdered By: Shyla Randle on 08-29-2024 GFR/1.73 sq M.predicted among non-blacks MDRD (S/P/Bld) [Vol rate/Area] 47 mL/min/{1.73_m2} Low >60 [facility] Comment on above: mL/min/1.73m2 CKD-EP I Creatinine Equation (2020) Hematocrit Auto (Bld) [Volum e fraction]Ordered By: Shyla Randle on 08-29-2024 Hematocrit (Bld) [Volume fraction] 41.5 % 37-47 [facility] Hemoglobin measurementOrdere d By: Shyla Randle on 08-29-2024 Hemoglobin (Bld) [Mass/Vol] 12.8 g/dL 12.0-15.0 [facility] Immature granulocytes/100 WB C Auto (Bld)Ordered By: Shyla Randle on 08-29-2024 Immature granulocytes/100 WBC (Bld) 0.400 % 0.0-0.9 [facility] Comment on above: IG% - Immature Granu locytes (promyelocytes, myelocytes and metamyelocytes) > 1% indicates that a LEFT SHIFT is Present. Laboratory - Chemistry and C hemistry - challengeOrdered By: Shyla Randle on 08-29-2024 AST [Catalytic activity/Vol] 24 U/L <32 [facility] MCV (mean corpuscular volume ) determinationOrdered By: Shyla Randle on 08-29-2024 MCV (RBC) [Entitic vol] 89.8 fL 81-99 [facility] Mean corpuscular hemoglobin (MCH) determinationOrdered By: Shyla Randle on 08-29-2024 MCH (RBC) [Entitic mass] 27.7 pg 27.0-32.0 [facility] Mean corpuscular hemoglobin concentration (MCHC) determinationOrdered By: Shyla Randle on 08-29-2024 MCHC (RBC) [Mass/Vol] 30.8 g/dL Low 32-36 [facility] Mean platelet volume determi nationOrdered By: Shyla Randle on 08-29-2024 Platelet mean volume (Bld) [Entitic vol] 13.4 fL High 6.2-12.0 [facility] Monocyte percentageOrdered B y: Shyla Randle on 08-29-2024 Monocytes/100 WBC (Bld) 7.7 % 0-10 [facility] Neutrophil percentageOrdered By: Shyla Randle on 08-29-2024 Neutrophils/100 WBC (Bld) 71.2 % High 47-70 [facility] Nucleated red blood cell per centageOrdered By: Shyla Randle on 08-29-2024 Nucleated RBC/100 WBC (Bld) [Ratio] 0 % 0-5 [facility] Platelet countOrdered By: Matilde Randle on 08-29-2024 Platelets (Bld) [#/Vol] 226 10*3/uL 150-450 [facility] Potassium measurement (mass/ volume)Ordered By: Shyla Randle on 08-29-2024 Potassium (Unsp spec) [Mass/Vol] 4.3 mmol/L 3.3-5.1 [facility] RBC Auto (Bld) [#/Vol]Ordere d By: Shyla Randle on 08-29-2024 RBC (Bld) [#/Vol] 4.62 10*6/uL 4.2-5.4 [facility] Serum creatinine measurement (mass/volume)Ordered By: Shyla Randle on 08-29-2024 Creatinine [Mass/Vol] 1.17 mg/dL 0.70-1.20 [facility] Serum globulin measurementOr dered By: Shyla Randle on 08-29-2024 Globulin (S) [Mass/Vol] 3.1 g/dL 2.2-4.2 [facility] Serum glucose measurement (m ass/volume)Ordered By: Shyla Randle on 08-29-2024 Glucose [Mass/Vol] 105 mg/dL High 70-99 [facility] Serum or plasma C reactive p rotein measurement (mass/volume)Ordered By: Shyla Randle on 08-29-2024 CRP [Mass/Vol] 3.86 mg/L High 0.0-3.0 [facility] Serum or plasma alanine ortiz otransferase (ALT) measurementOrdered By: Shyla Randle on 08-29-2024 ALT [Catalytic activity/Vol] 9 U/L <35 [facility] Serum or plasma albumin mariely urement (mass/volume)Ordered By: Shyla Randle on 08-29-2024 Albumin [Mass/Vol] 4.2 g/dL 3.4-4.8 [facility] Serum or plasma albumin/glob ulin mass ratioOrdered By: Shyla Randle on 08-29-2024 Albumin/Globulin [Mass ratio] 1.4 {ratio} 0.9-2.4 [facility] Serum or plasma alkaline jordyn sphatase measurementOrdered By: Shyla Randle on 08-29-2024 ALP [Catalytic activity/Vol] 77 U/L 35-104 [facility] Serum or plasma calcium mariely urement (mass/volume)Ordered By: Shyla Randle on 08-29-2024 Calcium [Mass/Vol] 9.8 mg/dL 7.6-11.0 [facility] Serum or plasma urea nitroge n measurement (mass/volume)Ordered By: Shyla Randle on 08-29-2024 Urea nitrogen [Mass/Vol] 26 mg/dL High 4-19 [facility] Sodium levelOrdered By: Paulino Randle on 08-29-2024 Sodium [Moles/Vol] 140 mmol/L 133-145 [facility] Total proteinOrdered By: Rehana Randle on 08-29-2024 Protein [Mass/Vol] 7.4 g/dL 5.9-8.4 [facility] White blood cell (WBC) count Ordered By: Shyla Randle on 08-29-2024 WBC (Bld) [#/Vol] 10.0 10*3/uL 4.4-11.0 [facility] Absolute lymphocyte countOrd ered By: Shyla Randle on 08-05-2024 Lymphocytes Auto (Unsp spec) [#/Vol] 1.26 10*3/uL 0.83-4.51 [facility] Absolute neutrophil countOrd ered By: Shyla Randle on 08-05-2024 Neutrophils (Bld) [#/Vol] 6.4 10*3/uL 2.0-7.7 [facility] Anion gap in Serum or Plasma Ordered By: Shyla Randle on 08-05-2024 Anion gap [Moles/Vol] 12 mmol/L 5-15 [facility] Automated lymphocyte count a s percentage of total leukocytesOrdered By: Shyla Randle on 08-05-2024 Lymphocytes/100 WBC Auto (Unsp spec) 15.1 % Low 19-41 [facility] BUN/creatinine ratioOrdered By: Shyla Randle on 08-05-2024 Urea nitrogen/Creatinine [Mass ratio] 20.9 mg/mg High 10-20 [facility] Basophil percentageOrdered B y: Shyla Randle on 08-05-2024 Basophils/100 WBC (Bld) 0.6 % 0-1 [facility] Bilirubin, totalOrdered By: Shyla Randle on 08-05-2024 Bilirubin [Mass/Vol] 0.46 mg/dL 0.00-1.30 [facility] CBC W/Diff, Automatedon 07-09 Absolute Lymph 1.26 X10 3/uL Normal 0.83-4.51 [facility] Comment on above: Performed By: #### L 501.6710, L100.0100, L101.9900, L500.4050 #### [facility] [address] [place], [address] Absolute Neut 6.4 X10 3/uL Normal 2.0-7.7 [facility] Comment on above: Performed By: #### L 501.6710, L100.0100, L101.9900, L500.4050 #### [facility] [address] [place], [address] Basophils/100 WBC (Bld) 0.6 % Normal 0-1 [facility] Comment on above: Performed By: #### L 501.6710, L100.0100, L101.9900, L500.4050 #### [facility] [address] [place], [address] Eosinophils/100 WBC (Bld) 0.8 % Normal 0-5 [facility] Comment on above: Performed By: #### L 501.6710, L100.0100, L101.9900, L500.4050 #### [facility] [address] [place], [address] Erythrocyte distribution width (RBC) [Ratio] 16.1 % High 11.6-14.6 [facility] Comment on above: Performed By: #### L 501.6710, L100.0100, L101.9900, L500.4050 #### [facility] [address] [place], [address] Hematocrit (Bld) [Volume fraction] 39.5 % Normal 37-47 [facility] Comment on above: Performed By: #### L 501.6710, L100.0100, L101.9900, L500.4050 #### [facility] [address] [place], [address] Hemoglobin (Bld) [Mass/Vol] 12.6 g/dL Normal 12.0-15.0 [facility] Comment on above: Performed By: #### L 501.6710, L100.0100, L101.9900, L500.4050 #### [facility] [address] [place], [address] IG% 0.400 Normal 0.0-0.9 [facility] Comment on above: Result Comment: IG% - Immature Granulocytes (promyelocytes, myelocytes and metamyelocytes) > 1% indicates that a LEFT SHIFT is Present. Performed By: #### L 501.6710, L100.0100, L101.9900, L500.4050 #### [facility] [address] [place], [address] Lymphocytes/100 WBC (Bld) 15.1 % Low 19-41 [facility] Comment on above: Performed By: #### L 501.6710, L100.0100, L101.9900, L500.4050 #### [facility] [address] [place], [address] MCH (RBC) [Entitic mass] 28.0 pg Normal 27.0-32.0 [facility] Comment on above: Performed By: #### L 501.6710, L100.0100, L101.9900, L500.4050 #### [facility] [address] [place], [address] MCHC (RBC) [Mass/Vol] 31.9 g/dL Low 32-36 [facility] Comment on above: Performed By: #### L 501.6710, L100.0100, L101.9900, L500.4050 #### [facility] [address] [place], [address] MCV (RBC) [Entitic vol] 87.8 fL Normal 81-99 [facility] Comment on above: Performed By: #### L 501.6710, L100.0100, L101.9900, L500.4050 #### [facility] [address] [place], [address] Monocytes/100 WBC (Bld) 6.8 % Normal 0-10 [facility] Comment on above: Performed By: #### L 501.6710, L100.0100, L101.9900, L500.4050 #### [facility] [address] [place], [address] Neutrophils/100 WBC (Bld) 76.3 % High 47-70 [facility] Comment on above: Performed By: #### L 501.6710, L100.0100, L101.9900, L500.4050 #### [facility] [address] [place], [address] Nucleated RBC (Bld) [#/Vol] 0 10*3/uL Normal 0-5 [facility] Comment on above: Performed By: #### L 501.6710, L100.0100, L101.9900, L500.4050 #### [facility] [address] [place], [address] Platelet mean volume (Bld) [Entitic vol] 11.6 fL Normal 6.2-12.0 [facility] Comment on above: Performed By: #### L 501.6710, L100.0100, L101.9900, L500.4050 #### [facility] [address] [place], [address] Platelets (Bld) [#/Vol] 278 10*3/uL Normal 150-450 [facility] Comment on above: Performed By: #### L 501.6710, L100.0100, L101.9900, L500.4050 #### [facility] [address] [place], [address] RBC (Bld) [#/Vol] 4.50 10*6/uL Normal 4.2-5.4 [facility] Comment on above: Performed By: #### L 501.6710, L100.0100, L101.9900, L500.4050 #### [facility] [address] [place], [address] RDW SD 52.3 fl High 35.1-43.9 [facility] Comment on above: Performed By: #### L 501.6710, L100.0100, L101.9900, L500.4050 #### [facility] [address] [place], [address] WBC (Bld) [#/Vol] 8.3 10*3/uL Normal 4.4-11.0 [facility] Comment on above: Performed By: #### L 501.6710, L100.0100, L101.9900, L500.4050 #### [facility] [address] [place], [address] CRPon 08-05-2024 C-REACTIVE PROT 9.50 mg/L High 0.0-3.0 [facility] Comment on above: Performed By: #### L 501.6710, L100.0100, L101.9900, L500.4050 #### [facility] [address] [place], [address] Carbon dioxide, total [Moles /volume] in Central venous bloodOrdered By: Shyla Randle on 08-05-2024 CO2 [Moles/Vol] 23.6 mmol/L 21.0-32.0 [facility] Chloride assayOrdered By: Matilde Randle on 08-05-2024 Chloride [Moles/Vol] 103 mmol/L 98-108 [facility] Comprehensive Metabolic Prof ilon 08-05-2024 Albumin [Mass/Vol] 4.1 g/dL Normal 3.4-4.8 [facility] Comment on above: Performed By: #### L 501.6710, L100.0100, L101.9900, L500.4050 #### [facility] [address] [place], [address] Albumin/Globulin [Mass ratio] 1.3 {ratio} Normal 0.9-2.4 [facility] Comment on above: Performed By: #### L 501.6710, L100.0100, L101.9900, L500.4050 #### [facility] [address] [place], [address] ALK PHOS 84 U/L Normal 35-104 [facility] Comment on above: Performed By: #### L 501.6710, L100.0100, L101.9900, L500.4050 #### [facility] [address] [place], [address] ALT [Catalytic activity/Vol] 10 U/L Normal <=34 [facility] Comment on above: Performed By: #### L 501.6710, L100.0100, L101.9900, L500.4050 #### [facility] [address] [place], [address] AST [Catalytic activity/Vol] 23 U/L Normal <=31 [facility] Comment on above: Performed By: #### L 501.6710, L100.0100, L101.9900, L500.4050 #### [facility] [address] [place], [address] Bilirubin [Mass/Vol] 0.46 mg/dL Normal 0.00-1.30 [facility] Comment on above: Performed By: #### L 501.6710, L100.0100, L101.9900, L500.4050 #### [facility] [address] [place], [address] BUN/CRE 20.9 RATIO High 10-20 [facility] Comment on above: Performed By: #### L 501.6710, L100.0100, L101.9900, L500.4050 #### [facility] [address] [place], [address] Calcium [Mass/Vol] 9.8 mg/dL Normal 7.6-11.0 [facility] Comment on above: Performed By: #### L 501.6710, L100.0100, L101.9900, L500.4050 #### [facility] [address] [place], [address] Chloride [Moles/Vol] 103 mmol/L Normal 98-108 [facility] Comment on above: Performed By: #### L 501.6710, L100.0100, L101.9900, L500.4050 #### [facility] [address] [place], [address] CO2 [Moles/Vol] 23.6 mmol/L Normal 21.0-32.0 [facility] Comment on above: Performed By: #### L 501.6710, L100.0100, L101.9900, L500.4050 #### [facility] [address] [place], [address] Creatinine [Mass/Vol] 1.08 mg/dL Normal 0.70-1.20 [facility] Comment on above: Performed By: #### L 501.6710, L100.0100, L101.9900, L500.4050 #### [facility] [address] [place], [address] GAP 12 Normal 5-15 [facility] Comment on above: Performed By: #### L 501.6710, L100.0100, L101.9900, L500.4050 #### [facility] [address] [place], [address] GFR/1.73 sq M.predicted among non-blacks MDRD (S/P/Bld) [Vol rate/Area] 52 mL/min/{1.73_m2} Low >60 [facility] Comment on above: Result Comment: mL/m in/1.73m2 CKD-EPI Creatinine Equation (2020) Performed By: #### L 501.6710, L100.0100, L101.9900, L500.4050 #### [facility] [address] [place], [address] Globulin (S) [Mass/Vol] 3.2 g/dL Normal 2.2-4.2 [facility] Comment on above: Performed By: #### L 501.6710, L100.0100, L101.9900, L500.4050 #### [facility] [address] [place], [address] Glucose [Mass/Vol] 73 mg/dL Normal 70-99 [facility] Comment on above: Performed By: #### L 501.6710, L100.0100, L101.9900, L500.4050 #### [facility] [address] [place], [address] Potassium [Moles/Vol] 4.2 mmol/L Normal 3.3-5.1 [facility] Comment on above: Performed By: #### L 501.6710, L100.0100, L101.9900, L500.4050 #### [facility] [address] [place], [address] Sodium [Moles/Vol] 139 mmol/L Normal 133-145 [facility] Comment on above: Performed By: #### L 501.6710, L100.0100, L101.9900, L500.4050 #### [facility] [address] [place], [address] T PROT 7.3 g/dL Normal 5.9-8.4 [facility] Comment on above: Performed By: #### L 501.6710, L100.0100, L101.9900, L500.4050 #### [facility] [address] [place], [address] Urea nitrogen [Mass/Vol] 23 mg/dL High 4-19 [facility] Comment on above: Performed By: #### L 501.6710, L100.0100, L101.9900, L500.4050 #### [facility] [address] [place], [address] Eosinophil percentageOrdered By: Shyla Randle on 08-05-2024 Eosinophils/100 WBC (Bld) 0.8 % 0-5 [facility] Erythrocyte Sed Rateon 08-05 SED RATE 15 mm/hr Normal 0-30 [facility] Comment on above: Performed By: #### L 501.6710, L100.0100, L101.9900, L500.4050 #### [facility] [address] [place], [address] Erythrocyte distribution wid th ratioOrdered By: Shyla Randle on 08-05-2024 Erythrocyte distribution width (RBC) [Ratio] 16.1 % High 11.6-14.6 [facility] Erythrocyte distribution wid th standard deviationOrdered By: Shyla Randle on 08-05-2024 Erythrocyte distribution width (RBC) [Ratio] 52.3 fl High 35.1-43.9 [facility] Erythrocyte sedimentation ra teOrdered By: Shyla Randle on 08-05-2024 ESR (Bld) [Velocity] 15 mm/h 0-30 [facility] Glomerular filtration rate ( GFR) estimation/1.73 sq m using serum, plasma, or whole bOrdered By: Shyla Randle on 08-05-2024 GFR/1.73 sq M.predicted among non-blacks MDRD (S/P/Bld) [Vol rate/Area] 52 mL/min/{1.73_m2} Low >60 [facility] Comment on above: mL/min/1.73m2 CKD-EP I Creatinine Equation (2020) Hematocrit Auto (Bld) [Volum e fraction]Ordered By: Shyla Randle on 08-05-2024 Hematocrit (Bld) [Volume fraction] 39.5 % 37-47 [facility] Hemoglobin measurementOrdere d By: Shyla Randle on 08-05-2024 Hemoglobin (Bld) [Mass/Vol] 12.6 g/dL 12.0-15.0 [facility] Immature granulocytes/100 WB C Auto (Bld)Ordered By: Shyla Randle on 08-05-2024 Immature granulocytes/100 WBC (Bld) 0.400 % 0.0-0.9 [facility] Comment on above: IG% - Immature Granu locytes (promyelocytes, myelocytes and metamyelocytes) > 1% indicates that a LEFT SHIFT is Present. Laboratory - Chemistry and C hemistry - challengeOrdered By: Shyla Randle on 08-05-2024 AST [Catalytic activity/Vol] 23 U/L <32 [facility] MCV (mean corpuscular volume ) determinationOrdered By: Shyla Randle 08-05-2024 MCV (RBC) [Entitic vol] 87.8 fL 81-99 [facility] Mean corpuscular hemoglobin (MCH) determinationOrdered By: Shyla Randle 08-05-2024 MCH (RBC) [Entitic mass] 28.0 pg 27.0-32.0 [facility] Mean corpuscular hemoglobin concentration (MCHC) determinationOrdered By: Shyla Randle on 08-05-2024 MCHC (RBC) [Mass/Vol] 31.9 g/dL Low 32-36 [facility] Mean platelet volume determi nationOrdered By: Shyla Randle on 08-05-2024 Platelet mean volume (Bld) [Entitic vol] 11.6 fL 6.2-12.0 [facility] Monocyte percentageOrdered B y: Shyla Randle on 08-05-2024 Monocytes/100 WBC (Bld) 6.8 % 0-10 [facility] Neutrophil percentageOrdered By: Shyla Randle on 08-05-2024 Neutrophils/100 WBC (Bld) 76.3 % High 47-70 [facility] Nucleated red blood cell per centageOrdered By: Shyla Randle on 08-05-2024 Nucleated RBC/100 WBC (Bld) [Ratio] 0 % 0-5 [facility] Platelet countOrdered By: Matilde Randle on 08-05-2024 Platelets (Bld) [#/Vol] 278 10*3/uL 150-450 [facility] Potassium measurement (mass/ volume)Ordered By: Shyla Randle on 08-05-2024 Potassium (Unsp spec) [Mass/Vol] 4.2 mmol/L 3.3-5.1 [facility] RBC Auto (Bld) [#/Vol]Ordere d By: Shyla Randle on 08-05-2024 RBC (Bld) [#/Vol] 4.50 10*6/uL 4.2-5.4 [facility] Serum creatinine measurement (mass/volume)Ordered By: Shyla Randle on 08-05-2024 Creatinine [Mass/Vol] 1.08 mg/dL 0.70-1.20 [facility] Serum globulin measurementOr dered By: Shyla Randle on 08-05-2024 Globulin (S) [Mass/Vol] 3.2 g/dL 2.2-4.2 [facility] Serum glucose measurement (m ass/volume)Ordered By: Shyla Randle on 08-05-2024 Glucose [Mass/Vol] 73 mg/dL 70-99 [facility] Serum or plasma C reactive p rotein measurement (mass/volume)Ordered By: Shyla Randle on 08-05-2024 CRP [Mass/Vol] 9.50 mg/L High 0.0-3.0 [facility] Serum or plasma alanine ortiz otransferase (ALT) measurementOrdered By: Shyla Randle on 08-05-2024 ALT [Catalytic activity/Vol] 10 U/L <35 [facility] Serum or plasma albumin mariely urement (mass/volume)Ordered By: Shyla Randle on 08-05-2024 Albumin [Mass/Vol] 4.1 g/dL 3.4-4.8 [facility] Serum or plasma albumin/glob ulin mass ratioOrdered By: Shyla Randle on 08-05-2024 Albumin/Globulin [Mass ratio] 1.3 {ratio} 0.9-2.4 [facility] Serum or plasma alkaline jordyn sphatase measurementOrdered By: Shyla Randle on 08-05-2024 ALP [Catalytic activity/Vol] 84 U/L 35-104 [facility] Serum or plasma calcium mariely urement (mass/volume)Ordered By: Shyla Randle on 08-05-2024 Calcium [Mass/Vol] 9.8 mg/dL 7.6-11.0 [facility] Serum or plasma urea nitroge n measurement (mass/volume)Ordered By: Shyla Randle on 08-05-2024 Urea nitrogen [Mass/Vol] 23 mg/dL High 4-19 [facility] Sodium levelOrdered By: Paulino Randle on 08-05-2024 Sodium [Moles/Vol] 139 mmol/L 133-145 [facility] Total proteinOrdered By: Rehana Randle on 08-05-2024 Protein [Mass/Vol] 7.3 g/dL 5.9-8.4 [facility] White blood cell (WBC) count Ordered By: Shyla Randle on 08-05-2024 WBC (Bld) [#/Vol] 8.3 10*3/uL 4.4-11.0 [facility] Echocardiogram study reportO rdered By: Kenny Alejandro on 07-07-2024 Study report [facility] [address] [place] [address] Echo Complete 07/04/24 1107 MR#: [id number] Acct: [id number] Name: HILDA MULLINS Rep #:[id number] : 1945 78 From: Kenny Huang Attending Dr: MATILDE Rapp Status: REG CLI Ordering Dr: Soraya Mark Date: 07/04/24 Location: [facility] Sex: F C Admitted: Reason For Study Reason For Study: Murmur, MV Repair Procedure This was a 2D Doppler, Color Flow transthoracic echocardiogram. Exam performed in department. Left Ventricle Normal LV size. Left ventricular systolic function is normal. The left ventricular ejection fraction is 55 %. No regional wall motion abnormalities noted. Right Ventricle Normal RV size. Normal systolic function. Atria Normal left atrium. Normal right atrium. Mitral Valve Mild (1+) mitral valve insufficiency. Status post mitral valve repair with annuloplasty ring. Tricuspid Valve Normal tricuspid valve. Mild (1+) tricuspid valve insufficiency. Pulmonary artery systolic pressure is 30 mmHg. Aortic Valve Trisinus/trileaflet aortic valve. Pulmonic Valve Normal pulmonic valve. Great Vessels Normal aortic root. The pulmonary artery is normal size. Inferior vena cava collapse with respiration. Pericardium/Pleural No pericardial effusion. MMode/2D Measurements & Calculations LVIDd: 3.9 cm IVSd: 1.1 cm Ao root diam: 3.4 cm LVIDs: 2.8 cm LVPWd: 1.1 cm RVDd: 2.9 cm FS: 28.0 % LAV(MOD-bp): 47.8 ml LVAd ap4: 17.5 cm2 LVAd ap2: 16.9 cm2 LAV(MOD-bp) Indexed: 28.5 ml/m2 LVLd ap4: 6.3 cm LVLd ap2: 6.9 cm LAV(MOD-sp2): 27.1 ml EDV(MOD-sp4): 42.0 ml EDV(MOD-sp2): 35.1 ml LAV(MOD-sp4): 77.2 ml EDV(sp4-el): 41.4 ml EDV(sp2-el): 35.3 ml LVAs ap4: 11.2 cm2 LVAs ap2: 10.6 cm2 LVLs ap4: 5.5 cm LVLs ap2: 6.3 cm ESV(MOD-sp4): 20.1 ml ESV(MOD-sp2): 15.8 ml ESV(sp4-el): 19.1 ml ESV(sp2-el): 15.1 ml EF(MOD-sp4): 52.1 % EF(MOD-sp2): 54.9 % EF(sp4-el): 53.8 % SV(MOD-sp4): 21.9 ml SV(MOD-sp2): 19.3 ml SV(sp4-el): 22.3 ml SI(MOD-sp4): 13.1 ml/m2 SI(MOD-sp2): 11.5 ml/m2 LA A4 area: 22.5 cm2 LA dimension(2D): 3.2 cm RA A4 area: 10.4 cm2 TAPSE: 1.5 cm Time Measurements MV dec time: 0.33 sec Doppler Measurements & Calculations MV E max lynda: 128.8 cm/sec Lat Peak E' Lynda: 6.1 cm/sec Med Peak E' Lynda: 5.5 cm/sec MV A max lynda: 149.8 cm/sec E/E' lat: 21.2 E/E' med: 23.3 MV E/A: 0.86 MV V2 max: 166.3 cm/sec MV P1/2t max lynda: 130.2 cm/sec Ao V2 max: 116.8 cm/sec MV max P.1 mmHg MV P1/2t: 89.2 msec Ao max P.5 mmHg MV V2 mean: 107.4 cm/sec Ao V2 mean: 84.7 cm/sec MV mean P.0 mmHg MV dec slope: 427.4 cm/sec2 Ao mean P.2 mmHg MV V2 VTI: 38.4 cm MVA(P1/2t): 2.5 cm2 Ao V2 VTI: 26.6 cm AV (velocity ratio): 0.68 LV V1 max: 85.9 cm/sec PA V2 max: 80.2 cm/sec TR max lnyda: 257.6 cm/sec LV V1 max P.0 mmHg TR max P.5 mmHg LV V1 mean P.8 mmHg LV V1 mean: 64.1 cm/sec LV V1 VTI: 18.1 cm ECHO/Echo Complete Interpretation Summary Status post mitral valve repair with annuloplasty ring. Normal LV size. Left ventricular systolic function is normal. The left ventricular ejection fraction is 55 %. Pulmonary artery systolic pressure is 30 mmHg. Ordering Physician: Soraya Mark Referring Physician: Davey Valente Performed By: Haley Gardiner RDCS 07/07/24813 Date _ Kenny Alejandro MD CC: Dr. Davey Valente, DO; MATILDE Rapp ~ Date Dictated: 07/04/241106 Date Transcribed: 07/07/24813 Botany Technician: Signed [facility] Work Phone: Echo Completeon 07-04-2024 Echo Complete [facility] [address] [place] [id number] Echo Complete 07/04/241106 MR#: [id number] Acct: [id number] Name: HILDA MULLINS ANN Rep #: [id number] : 1945 78 From: Kenny Alejandro MD Attending Dr: MATILDE Rapp Status: REG CLI Ordering Dr: Soraya Mark Date: 06/08 12/01 Location: [facility] Sex: F C Admitted: Reason For Study Reason For Study: Murmur, MV Repair Procedure This was a 2D Doppler, Color Flow transthoracic echocardiogram. Exam performed in department. Left Ventricle Normal LV size. Left ventricular systolic function is normal. The left ventricular ejection fraction is 55 %. No regional wall motion abnormalities noted. Right Ventricle Normal RV size. Normal systolic function. Atria Normal left atrium. Normal right atrium. Mitral Valve Mild (1+) mitral valve insufficiency. Status post mitral valve repair with annuloplasty ring. Tricuspid Valve Normal tricuspid valve. Mild (1+) tricuspid valve insufficiency. Pulmonary artery systolic pressure is 30 mmHg. Aortic Valve Trisinus/trileaflet aortic valve. Pulmonic Valve Normal pulmonic valve. Great Vessels Normal aortic root. The pulmonary artery is normal size. Inferior vena cava collapse with respiration. Pericardium/Pleural No pericardial effusion. MMode/2D Measurements Calculations LVIDd: 3.9 cm IVSd: 1.1 cm Ao root diam: 3.4 cm LVIDs: 2.8 cm LVPWd: 1.1 cm RVDd: 2.9 cm FS: 28.0 % LAV(MOD-bp): 47.8 ml LVAd ap4: 17.5 cm2 LVAd ap2: 16.9 cm2 LAV(MOD-bp) Indexed: 28.5 ml/m2 LVLd ap4: 6.3 cm LVLd ap2: 6.9 cm LAV(MOD-sp2): 27.1 ml EDV(MOD-sp4): 42.0 ml EDV(MOD-sp2): 35.1 ml LAV(MOD-sp4): 77.2 ml EDV(sp4-el): 41.4 ml EDV(sp2-el): 35.3 ml LVAs ap4: 11.2 cm2 LVAs ap2: 10.6 cm2 LVLs ap4: 5.5 cm LVLs ap2: 6.3 cm ESV(MOD-sp4): 20.1 ml ESV(MOD-sp2): 15.8 ml ESV(sp4-el): 19.1 ml ESV(sp2-el): 15.1 ml EF(MOD-sp4): 52.1 % EF(MOD-sp2): 54.9 % EF(sp4-el): 53.8 % SV(MOD-sp4): 21.9 ml SV(MOD-sp2): 19.3 ml SV(sp4-el): 22.3 ml SI(MOD-sp4): 13.1 ml/m2 SI(MOD-sp2): 11.5 ml/m2 LA A4 area: 22.5 cm2 LA dimension(2D): 3.2 cm RA A4 area: 10.4 cm2 TAPSE: 1.5 cm Time Measurements MV dec time: 0.33 sec Doppler Measurements Calculations MV E max lynda: 128.8 cm/sec Lat Peak E' Lynda: 6.1 cm/sec Med Peak E' Lynda: 5.5 cm/sec MV A max lynda: 149.8 cm/sec E/E' lat: 21.2 E/E' med: 23.3 MV E/A: 0.86 MV V2 max: 166.3 cm/sec MV P1/2t max lynda: 130.2 cm/sec Ao V2 max: 116.8 cm/sec MV max P.1 mmHg MV P1/2t: 89.2 msec Ao max P.5 mmHg MV V2 mean: 107.4 cm/sec Ao V2 mean: 84.7 cm/sec MV mean P.0 mmHg MV dec slope: 427.4 cm/sec2 Ao mean P.2 mmHg MV V2 VTI: 38.4 cm MVA(P1/2t): 2.5 cm2 Ao V2 VTI: 26.6 cm AV (velocity ratio): 0.68 LV V1 max: 85.9 cm/sec PA V2 max: 80.2 cm/sec TR max lynda: 257.6 cm/sec LV V1 max P.0 mmHg TR max P.5 mmHg LV V1 mean P.8 mmHg LV V1 mean: 64.1 cm/sec LV V1 VTI: 18.1 cm ECHO/Echo Complete Interpretation Summary Status post mitral valve repair with annuloplasty ring. Normal LV size. Left ventricular systolic function is normal. The left ventricular ejection fraction is 55 %. Pulmonary artery systolic pressure is 30 mmHg. Ordering Physician: Soraya Mark Referring Physician: Davey Valente Performed By: Haley Gardiner, CS 07/07/24813 Date Kenny Alejandro MD CC: Dr. Davey Valente DO; MATILDE Rapp Date Dictated: 07/04/24 1107 Date Transcribed: 07/07/24813 Botany Technician: Carlin [facility]2024 [facility] Panel InformationOrdered By: Wilfredo Cottrell on 06-16-2024 [facility] [address] [place] [address] CR - Individual Treatment Plan MR#: [id number] Acct: [id number] Name: HILDA MULLINS Rep #:[id number] : 1945 78 From: Wilfredo Escalante BS, RVT PCP: Dr. Davey Valente DO DOS: 06/16 Exercise - Initial Assessment Visit Session #:: 10 Physician Prescribed Exercise Modalities: Treadmill and SciFit Stepper Nutrition - Initial Assessment Weight Mgt (Other Care) Height: 5 ft 2 in Weight:: 150 lb BMI: 27.4 Psychosocial - Initial Assess Target Goals Target Goals Referral to Behavioral Health PS - Interventions: Yes: Attend Stress Management Classes Patient Health Questionnaire PHQ-9 Screening 30-Day Re-eval Assessment: 3. Trouble falling or staying asleep, or sleeping too much: More than halfthe days 4. Feeling tired or having little energy: Several days 5. Poor appetite or overeating: More than half the days 6. Feeling bad about yourself -- or that you are a failure or have let yourself or your family down: Not at all 7. Trouble concentrating on things, such as reading the newspaper or watching television: Not at all 8. Moving or speaking so slowly that other people could have noticed. Or the opposite - being so fidgety or restless that you have been moving around a lot more than usual: Not at all 9. Thoughts that you would be better off , or of hurting yourself in some way: Not at all How difficult have these problems made it for you to do your work, take care of things at home, or get along with other people?: Somewhat difficult Total Score: 5 Self-Efficacy 6-Item Scale 30-Day Re-eval Assessment: We would like to know how confident you are in doing certain activities. Please select your confidence level for: Fatigue Select Number: 7 Physical Discomfort or Pain Select Number: 8 Emotional Distress Select Number: 8 Other Symptoms or Health Problems Select Number: 8 Different Tasks and Activities Select Number: 8 Medication Select Number: 8 Total Score:: 7 Nutrition Survey Nutrition Survey Instructions Scoring Instructions Exercise - 30-day Assessment Visit Date of Eval: 06/16/24 Session #:: 10 Physician Prescribed Exercise Modalities: Treadmill and SciFit Stepper Frequency: 3x/week for 12 weeks [36 sessions] Intensity: 60-80% of age predicted maximum heart rate reserve Duration: 30 - 45 minutes Current METSs:: 3 Target Heart Rate:: 84-105 Current RPE:: 11 Maximum Excercise HR:: 85 Resting Blood Pressure: 138/76 Maximum Exercise Blood Pressure: 138/76 EKG Type: NSR Outcomes & Goals Goals:: Verbalizes understanding of THR, RPE & goal METS by session 6, Documentsin home exercise log/reports 30 min aerobic 5 day/wk by DC, Demonstrates accurate pulse taking by DC and Other additional outcome/goals: see below Intervention & Plan Exercise Program Goals: Instruct on personal THR & RPE, Instruct on MET level & personal MET goal, Show patient to take own pulse /validate performance until accurate, Instruct on home exercise and Other additional plan/int Physical Activity Home Exercise Physical Activity - Home Exercise: Safe Exercise, Warm-up, Self-monitoring, Cool-Down, Home Exercise > 30 min Daily and Sitting Time <3 hours/daily Outcomes & Goals Outcomes/Goals: Demonstrates correct Warm-up/exercise Cool-Down (S3) if = 2.5 METs, Verbalizes symptoms of exercise intolerance by Session 3 (S3), Demonstratesafe equipment use (S3) & follows exercise prescrition (6) and Other: See below Intervention & Plan Plan/Intervention: Instruct warm-up & cool-down if exercising at > 2 METs, Instruct on symptoms of exercise intolerance & actions to take, Instruct & monitor on saf, Assess intial functional capacity & safety risk and Other See below 30-day Reassessments 30 day Reassessments:: Progressing Reassessment Notes & Comments:: RPE explained. Pt demonstrates understanding inher daily sessions. Exercise - 60-day Assessment Physician Prescribed Exercise Modalities: Treadmill and SciFit Stepper Exercise - 90-day Assessment Physician Prescribed Exercise Modalities: Treadmill and SciFit Stepper Exercise - Final/Discharge Physician Prescribed Exercise Modalities: Treadmill and SciFit Stepper Nutrition - 30-Day Assessment Program Goals Nutrition Program Goals Patient has diagnosis of Hyperlipidemia (ICD E78)?: No Visit Date of Eval: 06/16/24 Session #:: 10 Cholesterol/Lipids (Other Core Measures) Determine presence & major risk factors that modify LDL goal: Hypertension or hypertensive medication, Low HDL cholesterol <40 mg/dL*, Family history of premature CHD in Male < 55 years: female <65 yearsFa and Age men > 45 years; women >/= 55 years Outcomes/Goals: Pt IDs own risk factors & lifestyle modifications by Session 10,Verbalizes symptoms of angina & response by session 3., Pt independently managesand Other Additional Outcomes/Goals: Intervention/Plan: Advocate for lipid panel cholesterol medication if applicable, Instruct on personal lipid levels & lipid goals/NCEP guidelines, Instruct on chol (more content not included)... [facility] Absolute lymphocyte countOrd ered By: Soraya Mark on 06-09-2024 Lymphocytes Auto (Unsp spec) [#/Vol] 1.45 10*3/uL 0.83-4.51 [facility] Absolute neutrophil countOrd ered By: Soraya Mark on 06-09-2024 Neutrophils (Bld) [#/Vol] 6.7 10*3/uL 2.0-7.7 [facility] Automated lymphocyte count a s percentage of total leukocytesOrdered By: Soraya Mark on 06-09-2024 Lymphocytes/100 WBC Auto (Unsp spec) 15.7 % Low 19-41 [facility] BUN/creatinine ratioOrdered By: Soraya Mark on 06-09-2024 Urea nitrogen/Creatinine [Mass ratio] 22.3 mg/mg High 10-20 [facility] Basic Metabolic Profile (BMP )on 06-09-2024 Anion gap [Moles/Vol] 11 mmol/L Normal 5-15 [facility] Comment on above: Performed By: #### L 501.9520, L500.2500, L100.0100 ####[facility] [address] [place], [address] BUN/CRE 22.3 RATIO High 10- [facility] Comment on above: Performed By: #### L 501.9520, L500.2500, L100.0100 ####[facility] [address] [place], [address] Calcium [Mass/Vol] 9.9 mg/dL Normal 7.6-11.0 [facility] Comment on above: Performed By: #### L 501.9520, L500.2500, L100.0100 ####[facility] [address] [place], [address] Chloride [Moles/Vol] 103 mmol/L Normal 96-108 [facility] Comment on above: Performed By: #### L 501.9520, L500.2500, L100.0100 ####[facility] [address] [place], [address] CO2 [Moles/Vol] 24.5 mmol/L Normal 22.0-29.0 [facility] Comment on above: Performed By: #### L 501.9520, L500.2500, L100.0100 ####[facility] [address] [place], [address] Creatinine [Mass/Vol] 1.09 mg/dL Normal 0.70-1.20 [facility] Comment on above: Performed By: #### L 501.9520, L500.2500, L100.0100 ####[facility] [address] [place], [address] GFR/1.73 sq M.predicted among non-blacks MDRD (S/P/Bld) [Vol rate/Area] 51 mL/min/{1.73_m2} Low >60 [facility] Comment on above: Result Comment: mL/m in/1.73m2 CKD-EPI Creatinine Equation (2020) Performed By: #### L 501.9520, L500.2500, L100.0100 ####[facility] [address] [place], [address] Glucose [Mass/Vol] 65 mg/dL Low 70-99 [facility] Comment on above: Performed By: #### L 501.9520, L500.2500, L100.0100 ####[facility] [address] [place], [address] Potassium [Moles/Vol] 4.5 mmol/L Normal 3.3-5.1 [facility] Comment on above: Performed By: #### L 501.9520, L500.2500, L100.0100 ####[facility] [address] [place], [address] Sodium [Moles/Vol] 138 mmol/L Normal 133-145 [facility] Comment on above: Performed By: #### L 501.9520, L500.2500, L100.0100 ####[facility] [address] [place], [address] Urea nitrogen [Mass/Vol] 24 mg/dL High 4-19 [facility] Comment on above: Performed By: #### L 501.9520, L500.2500, L100.0100 ####[facility] [address] [place], [address] Basophil percentageOrdered B y: Soraya Mark on 06-09-2024 Basophils/100 WBC (Bld) 0.8 % 0-1 [facility] CBC W/Diff, Automatedon 03-0 3-5 Absolute Lymph 1.45 X10 3/uL Normal 0.83-4.51 [facility] Comment on above: Performed By: #### L 501.9520, L500.2500, L100.0100 ####[facility] [address] [place], [address] Absolute Neut 6.7 X10 3/uL Normal 2.0-7.7 [facility] Comment on above: Performed By: #### L 501.9520, L500.2500, L100.0100 ####[facility] [address] [place], [address] Basophils/100 WBC (Bld) 0.8 % Normal 0-1 [facility] Comment on above: Performed By: #### L 501.9520, L500.2500, L100.0100 ####[facility] [address] [place], [address] Eosinophils/100 WBC (Bld) 0.5 % Normal 0-5 [facility] Comment on above: Performed By: #### L 501.9520, L500.2500, L100.0100 ####[facility] [address] [place], [address] Erythrocyte distribution width (RBC) [Ratio] 15.3 % High 11.6-14.6 [facility] Comment on above: Performed By: #### L 501.9520, L500.2500, L100.0100 ####[facility] [address] [place], [address] Hematocrit (Bld) [Volume fraction] 42.0 % Normal 37-47 [facility] Comment on above: Performed By: #### L 501.9520, L500.2500, L100.0100 ####[facility] [address] [place], [address] Hemoglobin (Bld) [Mass/Vol] 13.2 g/dL Normal 12.0-15.0 [facility] Comment on above: Performed By: #### L 501.9520, L500.2500, L100.0100 ####[facility] [address] [place], [address] IG% 0.700 Normal 0.0-0.9 [facility] Comment on above: Result Comment: IG% - Immature Granulocytes (promyelocytes, myelocytes and metamyelocytes) > 1% indicates that a LEFT SHIFT is Present. Performed By: #### L 501.9520, L500.2500, L100.0100 ####[facility] [address] [place], [address] Lymphocytes/100 WBC (Bld) 15.7 % Low 19-41 [facility] Comment on above: Performed By: #### L 501.9520, L500.2500, L100.0100 ####[facility] [address] [place], [address] MCH (RBC) [Entitic mass] 28.1 pg Normal 27.0-32.0 [facility] Comment on above: Performed By: #### L 501.9520, L500.2500, L100.0100 ####[facility] [address] [place], [address] MCHC (RBC) [Mass/Vol] 31.4 g/dL Low 32-36 [facility] Comment on above: Performed By: #### L 501.9520, L500.2500, L100.0100 ####[facility] [address] [place], [address] MCV (RBC) [Entitic vol] 89.6 fL Normal 81-99 [facility] Comment on above: Performed By: #### L 501.9520, L500.2500, L100.0100 ####[facility] [address] [place], [address] Monocytes/100 WBC (Bld) 9.1 % Normal 0-10 [facility] Comment on above: Performed By: #### L 501.9520, L500.2500, L100.0100 ####[facility] [address] [place], [address] Neutrophils/100 WBC (Bld) 73.2 % High 47-70 [facility] Comment on above: Performed By: #### L 501.9520, L500.2500, L100.0100 ####[facility] [address] [place], [address] Nucleated RBC (Bld) [#/Vol] 0 10*3/uL Normal 0-5 [facility] Comment on above: Performed By: #### L 501.9520, L500.2500, L100.0100 ####[facility] [address] [place], [address] Platelet mean volume (Bld) [Entitic vol] 11.5 fL Normal 6.2-12.0 [facility] Comment on above: Performed By: #### L 501.9520, L500.2500, L100.0100 ####[facility] [address] [place], [address] Platelets (Bld) [#/Vol] 291 10*3/uL Normal 150-450 [facility] Comment on above: Performed By: #### L 501.9520, L500.2500, L100.0100 ####[facility] [address] [place], [address] RBC (Bld) [#/Vol] 4.69 10*6/uL Normal 4.2-5.4 [facility] Comment on above: Performed By: #### L 501.9520, L500.2500, L100.0100 ####[facility] [address] [place], [address] RDW SD 50.6 fl High 35.1-43.9 [facility] Comment on above: Performed By: #### L 501.9520, L500.2500, L100.0100 ####[facility] [address] [place], [address] WBC (Bld) [#/Vol] 9.2 10*3/uL Normal 4.4-11.0 [facility] Comment on above: Performed By: #### L 501.9520, L500.2500, L100.0100 ####[facility] [address] [place], [address] Carbon dioxide measurementOr dered By: Soraya Mark on 06-09-2024 CO2 [Moles/Vol] 24.5 mmol/L 22.0-29.0 [facility] Chloride measurementOrdered By: Soraya Mark on 06-09-2024 Chloride [Moles/Vol] 103 mmol/L 96-108 [facility] Eosinophil percentageOrdered By: Soraya Mark on 06-09-2024 Eosinophils/100 WBC (Bld) 0.5 % 0-5 [facility] Erythrocyte distribution wid th ratioOrdered By: Soraya Mark on 06-09-2024 Erythrocyte distribution width (RBC) [Ratio] 15.3 % High 11.6-14.6 [facility] Erythrocyte distribution wid th standard deviationOrdered By: Soraya Mark on 06-09-2024 Erythrocyte distribution width (RBC) [Entitic vol] 50.6 fL High 35.1-43.9 [facility] Erythrocyte distribution width (RBC) [Ratio] 50.6 fl High 35.1-43.9 [facility] GFR/1.73 sq M.predicted ariel g non-blacks MDRD (S/P/Bld) [Vol rate/Area]Ordered By: Soraya Mark on 06-09-2024 Estimated GFR (MDRD) Non-Af Amer 51 Low >60 [facility] Comment on above: mL/min/1.73m2 CKD-EP I Creatinine Equation (2020) Glomerular filtration rate ( GFR) estimation/1.73 sq m using serum, plasma, or whole bOrdered By: Soraya Mark on 06-09-2024 GFR/1.73 sq M.predicted among non-blacks MDRD (S/P/Bld) [Vol rate/Area] 51 mL/min/{1.73_m2} Low >60 [facility] Comment on above: mL/min/1.73m2 CKD-EP I Creatinine Equation (2020) Hematocrit Auto (Bld) [Volum e fraction]Ordered By: Soraya Mark on 06-09-2024 Hematocrit (Bld) [Volume fraction] 42.0 % 37-47 [facility] Hemoglobin measurementOrdere d By: Soraya Mark on 06-09-2024 Hemoglobin (Bld) [Mass/Vol] 13.2 g/dL 12.0-15.0 [facility] Immature granulocytes/100 WB C Auto (Bld)Ordered By: Soraya Mark on 06-09-2024 Immature granulocytes/100 WBC (Bld) 0.700 % 0.0-0.9 [facility] Comment on above: IG% - Immature Granu locytes (promyelocytes, myelocytes and metamyelocytes) > 1% indicates that a LEFT SHIFT is Present. Lymphocytes Auto (Unsp spec) [#/Vol]Ordered By: Soraya Mark on 06-09-2024 Lymphocytes (Bld) [#/Vol] 1.45 10*3/uL 0.83-4.51 [facility] Lymphocytes/100 WBC Auto (Un sp spec)Ordered By: Soraya Mark on 06-09-2024 Lymphocytes/100 WBC (Bld) 15.7 % Low 19-41 [facility] MCV (mean corpuscular volume ) determinationOrdered By: Soraya Mark on 06-09-2024 MCV (RBC) [Entitic vol] 89.6 fL 81-99 [facility] Mean corpuscular hemoglobin (MCH) determinationOrdered By: Soraya Mark on 06-09-2024 MCH (RBC) [Entitic mass] 28.1 pg 27.0-32.0 [facility] Mean corpuscular hemoglobin concentration (MCHC) determinationOrdered By: Soraya Mark on 06-09-2024 MCHC (RBC) [Mass/Vol] 31.4 g/dL Low 32-36 [facility] Mean platelet volume determi nationOrdered By: Soraya Mark on 06-09-2024 Platelet mean volume (Bld) [Entitic vol] 11.5 fL 6.2-12.0 [facility] Monocyte percentageOrdered B y: Soraya Mark on 06-09-2024 Monocytes/100 WBC (Bld) 9.1 % 0-10 [facility] Neutrophil percentageOrdered By: Soraya Mark on 06-09-2024 Neutrophils/100 WBC (Bld) 73.2 % High 47-70 [facility] Nucleated red blood cell per centageOrdered By: Soraya Mark on 06-09-2024 Nucleated RBC/100 WBC (Bld) [Ratio] 0 % 0-5 [facility] Platelet countOrdered By: Leidy Mark on 06-09-2024 Platelets (Bld) [#/Vol] 291 10*3/uL 150-450 [facility] RBC Auto (Bld) [#/Vol]Ordere d By: Soraya Mark on 06-09-2024 RBC (Bld) [#/Vol] 4.69 10*6/uL 4.2-5.4 [facility] Serum creatinine measurement (mass/volume)Ordered By: Soraya Mark on 06-09-2024 Creatinine [Mass/Vol] 1.09 mg/dL 0.70-1.20 [facility] Serum glucose measurement (m ass/volume)Ordered By: Soraya Mark on 06-09-2024 Glucose [Mass/Vol] 65 mg/dL Low 70-99 [facility] Serum or plasma anion gap de termination (moles/volume)Ordered By: Soraya Mark on 06-09-2024 Anion gap [Moles/Vol] 11 mmol/L 5-15 [facility] Serum or plasma calcium mariely urement (mass/volume)Ordered By: Soraya Mark on 06-09-2024 Calcium [Mass/Vol] 9.9 mg/dL 7.6-11.0 [facility] Serum or plasma potassium me asurementOrdered By: Soraya Mark on 06-09-2024 Potassium [Moles/Vol] 4.5 mmol/L 3.3-5.1 [facility] Serum or plasma sodium measu rement (moles/volume)Ordered By: Soraya Mark on 06-09-2024 Sodium [Moles/Vol] 138 mmol/L 133-145 [facility] Serum or plasma urea nitroge n measurement (mass/volume)Ordered By: Soraya Mark on 06-09-2024 Urea nitrogen [Mass/Vol] 24 mg/dL High 4-19 [facility] TSH DL <= 0.005 mIU/L QnOrde red By: Soraya Mark on 06-09-2024 Thyroid Stimulating Hormone (TSH) 2.550 uIU/mL 0.300-4.20 0 [facility] TSH Qn 2.550 uIU/mL 0.300-4.20 0 [facility] Thyroid Stim Hormone (TSH)on 06-09-2024 TSH 2.550 uIU/mL Normal 0.300-4.20 0 [facility] Comment on above: Performed By: #### L 501.9520, L500.2500, L100.0100 ####[facility] [address] [facility] [facility] [place], [address] White blood cell (WBC) count Ordered By: Soraya Mark on 06-09-2024 WBC (Bld) [#/Vol] 9.2 10*3/uL 4.4-11.0 [facility] CR - History AND Physicalon 05-19-2024 CR - History & Physical [facility] [address] [place] [address] CR - History Physical MR#: [id number] Acct: [id number] Name: HILDA MULLINS ANN Rep #: [id number] : 1945 78 From: Wilfredo Escalante BS, RVT PCP: Dr. Davey Valente, DO DOS: 05/19/24 CR - History Physical General Arrival date:: 05/19/24 Arrival time:: 14:00 Date of Referral:: 05/15/24 Date of CR Evaluation:: 05/19/24 Referring Physician: Dr. Alejandro Primary Diagnosis: Heart valve repair History of Present Cardiac Event Onset Date Heart valve replacement or repair:: Yes (03/24/24 onset) Medications Ambulatory Orders ???Medication ???Instructions ???Recorded pantoprazole 20 mg tablet,delayed 20 mg PO DAILY 01/05/22 release (Protonix) aspirin 81 mg tablet,delayed 81 mg PO QDAY 04/10/24 release (Adult Low Dose Aspirin) magnesium oxide 400 mg PO BID #180 caps 05/05/24 metoprolol succinate 50 mg 50 mg PO BID #180 tabs 05/06/24 tablet,extended release 24 hr amlodipine 2.5 mg tablet (Norvasc) 2.5 mg PO QDAY #30 tabs 05/14/24 cholecalciferol (vitamin D3) 25 25 mcg PO QDAY 05/14/24 mcg (1,000 unit) capsule glucosam 750 mg-chondroi 100 tab PO DAILY 05/14/24 mg-hyalur 1.65 mg-CF borate 108 mg tablet (CultureMap) Allergies Allergies oxycodone Allergy (Severe, Verified 05/14/24 15:22) Nausea omeprazole Allergy (Intermediate, Verified 05/14/24 15:22) Vomiting Sulfa (Sulfonamide Antibiotics) Allergy (Mild, Verified 05/14/24 15:22) Itching codeine Allergy (Verified 05/14/24 15:22) Vomiting methylprednisolone (From Medrol) Adverse Reaction (Severe, Verified 05/14/24 15:22) Itching Sleep Disorder Evaluation Hx of Sleep Apnea: No Do you snore loudly (louder than talking or can be heard through closed doors)?: No Do you often feel tired/ fatigued/ sleepy during daytime?: No Has anyone observed you stop breathing during sleep?: No History of Hypertension (for STOP score): Yes STOP Results: Negative Advanced Directives Advanced Directives Power of Director Medicare Sales: Yes Living Will: Yes Advance Directives Information Provided: Yes Advance Directives on File: No DNR Order?:: No Past Medical History Covid-19 Screening Physicial Symptoms Other Clinical Concerns Exposure Risk Pertinent Comorbidities Has a serious heart condition:: Yes Past Medical Illness Medical History Postoperative atrial fibrillation Wears hearing aid Wears glasses Post-menopausal Anxiety History of steroid therapy Back pain Blackout Difficulty swallowing History of hiatal hernia History of ulceration Asthma Shortness of breath on exertion Non-smoker Leg cramps History of pain when walking History of echocardiogram History of transesophageal echocardiography (FREDERIC) Cardiology follow-up encounter Sacral nerve stimulator present Dyspnea Hypoglycemia Vestibular migraine OAB (overactive bladder) Vertigo Vitamin D deficiency GERD (gastroesophageal reflux disease) Hiatal hernia Solitary kidney, acquired Mitral valve prolapse Cardiac murmur Syncope and collapse Hypertension Arthritis Past Surgical History Surgical History S/P mitral valve repair S/P inguinal hernia repair History of cardiac catheterization Hx of right cataract extraction Hx of left cataract extraction History of esophagogastroduodenoscopy (EGD) Hx of colonoscopy History of back surgery Hx of cholecystectomy Total knee replacement status History of hysterectomy History of kidney surgery Surgical History: - Family History Summary Family History Aunt Breast cancer Mother Pancreatic cancer Brother Pancreatic cancer Cancer of blood vessel Social History Smoking History Smoking Status: Never smoker Alcohol Use Alcohol Usage: No Substance Abuse Hx Substance Use: No Occupation Occupation (List type of work in comments):: Retired Hobbies, Recreation, Social Activities Hobbies: Other Social Environment Status Marital Status: Current Living Arrangements Living Environment:: Spouse Children How many children do you have?: 1 Do any of your children live nearby?: Yes Safety Do you feel safe in your surroundings?: Yes Assistance Do you need any assistance at home?: no Review of Systems Review of Systems Hints Review of Present Symptoms: Reports Shortness of Breath with Exertion, Dizziness/Lightheadedness, Fatigue and Appetite - Special Diet; Denies Shortness of Breath at Rest, PVD, Operative Discomfort, Angina, Wound Healing, Heart Arrhythmia/Irregularities, Appetite - Normal, Sleep - Normal or Sexual Changes Pain Is Patient Pain Free?: Yes Risk Factor Assessment Shania (more content not included)... Normal [facility] 12 Lead EKG performed by [facility] on 05-14-2024 12 Lead EKG performed by [place] [address] [place] [address] 12 Lead EKG performed by [facility] 05/14/24 1456 MR#: [id number] Acct: [id number] Name: HILDA MULLINS ANN Rep #: [id number] : 1945 78 From: Soraya Victoria Attending Dr: MATILDE Rapp Status: DEP AMB Ordering Dr: Soraya Mark Date: 08/31 [place] [facility] Sex: F C Admitted: [facility]12 Lead EKG performed by [facility] ECG Report Interpretation Si nus Rhythm Low voltage in precordial leads. -RSR(V1) -nondiagnostic. -Left atrial enlargement. ABNORMAL Electronically signed on 05/15/2024 at 11:40 by Kenny Alejandrowood Software Version [id number] 05/15/24 1146 Date Soraya CLAYTON CC: Dr. Davey Valente DO Date Dictated: 05/14/241455 Date Transcribed: 05/14/241455 Botany Technician: NAYE Signed Normal [facility] Cardiology Visit Reporton Cardiology Visit Report [facility] [address] [place] [address] OFFICE VISIT Date of Service: 05/14/24 MR#: [id number] Acct: [id number] Name: HILDA MULLINS ANN Rep #: [id number] : 1945 Provider: MATILDE Chen Age/Sex: 78/F Location: [facility] Status: Signed HPI HPI History of Present Illness Details: 78-year-old lady with a previous history of recurrent syncopal spells which grew back at least 60 years. On this last event she was at a neighborhood event and then she suddenly felt herself getting warm she felt that she was going to pass out she was having some visual problems she became diaphoretic and pale and then apparently passed out. Neighbor felt that she could not feel her pulse and they asked her to see the physician. This event has been attributed to blood sugar issues for many years. Her passing out spells at 1 time culminated after her wedding in a cardiac catheterization when she was diagnosed as having mitral valve prolapse. She has never had an echocardiogram. She has a few of these episodes every year and she can always tell it coming on. She has been on antihypertensive therapy but has not had any chest pain to suggest angina. She has been compliant with all her medications. She is completely asymptomatic otherwise with no shortness of breath. Her physical exam demonstrates clear lung gaona and midsystolic click at 3/6 holosystolic murmur radiating towards the axilla no pedal edema and her electrocardiogram demonstrating sinus rhythm with a rate of 84 bpm. Echocardiogram in December 2023 demonstrated an ejection fraction of 65%, left atrium severely enlarged, mitral valve posterior leaflet with prolapse with moderate to severe anterior directed mitral valve regurg. FREDERIC on January 07, 2024 demonstrated moderately severe anterior directed mitral valve insufficiency. She underwent a diagnostic heart catheterization on January 17, 2024 which demonstrated mild coronary artery disease, preserved ejection fraction with moderately severe mitral valve regurg with mitral valve prolapse. She was referred to [facility] for mitral valve repair. Patient did undergo a mitral valve repair on March 24, 2024 at [facility]. Postoperatively she had atrial fibs with RVR. She was started on IV Amio however this was discontinued given that she had sinus bradycardia with junctional rhythm however she went back into atrial for with RVR, amiodarone drip was restarted. Rates improved. She was also noted to have mild hypotension, this was felt to be related to her Lasix in the a.m. She was discharged home on amiodarone twice a day for 1 week then once a day. After that she could be transition to Toprol. She was also noted to have bilateral pleural effusions. She did not require a thoracentesis due to it being too small to tap. She was also noted to be anemic. Patient is doing much better postoperatively. She does not have any chest pain. Her energy is improving. She does not have any worsening shortness of breath. She has not had any irregular heartbeats that she is aware of. She does not have any lower extremity edema. She feels that she can start cardiac rehab. Intake Vital Signs 04/10/24 13:54 05/14/24 15:22 Height 5 ft 2 in 5 ft 2 in Weight: 147 lb BMI 26.9 BP 144/79 H Blood Pressure Location Lt brachial Position Sitting Respiration 18 Pulse 65 Pulse Source Monitor Pulse Oximetry (%) 99 Intake Visit Reasons: 1 M FU (OK PER MMM) Medication Assistant Required: No Is patient in pain?: No Allergies oxycodone Allergy (Severe, Verified 05/14/24 15:22) Nausea omeprazole Allergy (Intermediate, Verified 05/14/24 15:22) Vomiting Sulfa (Sulfonamide Antibiotics) Allergy (Mild, Verified 05/14/24 15:22) Itching codeine Allergy (Verified 05/14/24 15:22) Vomiting methylprednisolone (From Medrol) Adverse Reaction (Severe, Verified 05/14/24 15:22) Itching Medications ???Medication ???Instructions ???Recorded ???Confirmed ???Type pantoprazole 20 mg tablet,delayed 20 mg PO DAILY 01/05/22 05/14/24 History release (Protonix) aspirin 81 mg tablet,delayed 81 mg PO QDAY 04/10/24 05/14/24 Hi story release (Adult Low Dose Aspirin) magnesium oxide 400 mg PO BID #180 caps 05/05/24 0 05/14/24 Rx metoprolol succinate 50 mg 50 mg PO BID #180 tabs 05/06/24 Rx tablet,extended release 24 hr amlodipine 2.5 mg tablet (Norvasc) 2.5 mg PO QDAY #30 tabs 05/14/24 05/14/24 Rx cholecalciferol (vitamin D3) 25 25 mcg PO QDAY 05/14/24 05/14/24 H istory mcg (1,000 unit) capsule glucosam 750 mg-chondroi 100 tab PO DAILY 05/14/24 05/14/24 His tory mg-hyalur 1.65 mg-CF borate 108 mg tablet (CultureMap) Have you fallen in the past year?: No [facility] Medical History (Reviewed (more content not included)... Normal [facility] Basic Metabolic Profile (BMP )on 04-30-2024 BUN/CRE 15.3 RATIO Normal 10-20 [facility] Comment on above: Performed By: #### L 500.2500 #### [facility] [address] [place], [address] CA,Total 9.5 mg/dL Normal 8.5-10.1 [facility] Comment on above: Performed By: #### L 500.2500 #### [facility] [address] [place], [address] Chloride [Moles/Vol] 104 mmol/L Normal 98-107 [facility] Comment on above: Performed By: #### L 500.2500 #### [facility] [address] [place], [address] CO2 [Moles/Vol] 24.0 mmol/L Normal 21.0-32.0 [facility] Comment on above: Performed By: #### L 500.2500 #### [facility] [address] [place], [address] Creatinine [Mass/Vol] 1.18 mg/dL High 0.55-1.02 [facility] Comment on above: Result Comment: The validity of the calculated GFR GFRAA in patients over 70 years has not been determined. Clinical correlation is essential. Performed By: #### L 500.2500 #### [facility] [address] [place], [address] EST GFR - AA 57 mL/min Low >60 [facility] Comment on above: Result Comment: Afri can Burundian GFR Calc Performed By: #### L 500.2500 #### [facility] [address] [place], [address] GAP 7 Normal 5-15 [facility] Comment on above: Performed By: #### L 500.2500 #### [facility] [address] [place], [address] GFR/1.73 sq M.predicted among non-blacks MDRD (S/P/Bld) [Vol rate/Area] 47 mL/min/{1.73_m2} Low >60 [facility] Comment on above: Result Comment: Non- GFR Calc Performed By: #### L 500.2500 #### [facility] [address] [place], [address] Glucose [Mass/Vol] 113 mg/dL High 74-106 [facility] Comment on above: Result Comment: Fast ing Glucose result from 100 to 125 mg/dL suggests IMPAIRED HOMEOSTASIS per A.D.A. criteria. Performed By: #### L 500.2500 #### [facility] [address] [place], [address] Potassium [Moles/Vol] 4.3 mmol/L Normal 3.5-5.1 [facility] Comment on above: Performed By: #### L 500.2500 #### [facility] [address] [place], [address] Sodium [Moles/Vol] 135 mmol/L Low 136-145 [facility] Comment on above: Performed By: #### L 500.2500 #### [facility] [address] [place], [address] Urea nitrogen [Mass/Vol] 18 mg/dL Normal 7-18 [facility] Comment on above: Performed By: #### L 500.2500 #### [facility] [address] [place], [address] Blood urea nitrogen (BUN)/cr eatinine ratioOrdered By: Soraya Mark on 04-30-2024 Urea nitrogen/Creatinine [Mass ratio] 15.3 mg/mg 10-20 [facility] CNPTOUTREACHon 04-30-2024 CNPTOUTREACH Normal [facility] Carbon dioxide measurementOr dered By: Soraya Mark on 04-30-2024 CO2 [Moles/Vol] 24.0 mmol/L 21.0-32.0 [facility] Chloride measurementOrdered By: Soraya Mark on 04-30-2024 Chloride [Moles/Vol] 104 mmol/L 98-107 [facility] Estimated glomerular filtrat ion rate (GFR) AmericanOrdered By: Soraya Mark on 04-30-2024 Estimated GFR (MDRD) Amer 57 mL/min Low >60 [facility] Comment on above: GFR Calc Glomerular filtration rate ( GFR) estimationOrdered By: Soraya Mark on 04-30-2024 Estimated GFR (MDRD) Non-Af Amer 47 mL/min Low >60 [facility] Comment on above: Non- GFR Calc GFR/1.73 sq M.predicted among non-blacks MDRD (S/P/Bld) [Vol rate/Area] 47 mL/min/{1.73_m2} Low >60 [facility] Comment on above: Non- GFR Calc Glucose measurementOrdered B y: Soraya Mark on 04-30-2024 Glucose [Mass/Vol] 113 mg/dL High 74-106 [facility] Comment on above: Fasting Glucose resu lt from 100 to 125 mg/dL suggests IMPAIRED HOMEOSTASIS per A.D.A. criteria. Potassium measurementOrdered By: Soraya Mark on 04-30-2024 Potassium [Moles/Vol] 4.3 mmol/L 3.5-5.1 [facility] Serum anion gap measurementO rdered By: Soraya Mark on 04-30-2024 Anion gap [Moles/Vol] 7 mmol/L 5-15 [facility] Serum or plasma calcium mariely urement (mass/volume)Ordered By: Soraya Mark on 04-30-2024 Calcium [Mass/Vol] 9.5 mg/dL 8.5-10.1 [facility] Serum or plasma creatinine m easurement (mass/volume)Ordered By: Soraya Mark on 04-30-2024 Creatinine [Mass/Vol] 1.18 mg/dL High 0.55-1.02 [facility] Comment on above: The validity of the calculated GFR & GFRAA in patients over 70 years has not been determined. Clinical correlation is essential. Serum or plasma urea nitroge n measurement (mass/volume)Ordered By: Soraya Mark on 04-30-2024 Urea nitrogen [Mass/Vol] 18 mg/dL 7-18 [facility] Sodium levelOrdered By: Vinnie Mark on 04-30-2024 Sodium [Moles/Vol] 135 mmol/L Low 136-145 [facility] 12 Lead EKG performed by [facility] on 04-10-2024 12 Lead EKG performed by [place] [address] [facility] [place] [address] 12 Lead EKG performed by [facility] 04/10/24833 MR#: [id number] Acct: [id number] Name: HILDA MULLINS Rep #: [id number] : 1945 78 From: Soraya Victoria Attending Dr: MATILDE Rapp Status: DEP AMB Ordering Dr: Soraya Mark Date: 06/03 Location[place] [facility] Sex: F C Admitted: [facility]12 Lead EKG performed by [facility] ECG Report Interpretation Si nus Rhythm -RSR(V1) -nondiagnostic. -Left atrial enlargement. BORDERLINEElectronically signed on 04/12/2024 at 12:47 by Kenny Alejandro Software Version [id number] 04/12/24 1249 Date Soraya CLAYTON CC: Dr. Davey Valente, Date Dictated: 04/10/24833 Date Transcribed: 04/10/24833 Botany Technician: NAYE Signed Normal [facility] Absolute neutrophil countOrd ered By: Soraya Mark on 04-10-2024 Neutrophils (Bld) [#/Vol] 7.1 10*3/uL 2.0-7.7 [facility] Basic Metabolic Profile (BMP )on 04-10-2024 BUN/CRE 16.5 RATIO Normal 10-20 [facility] Comment on above: Performed By: #### L 100.0100, L500.2500 ####[facility] [address] [place], [address] CA,Total 9.7 mg/dL Normal 8.5-10.1 [facility] Comment on above: Performed By: #### L 100.0100, L500.2500 ####[facility] [address] [place], [address] Chloride [Moles/Vol] 105 mmol/L Normal 98-107 [facility] Comment on above: Performed By: #### L 100.0100, L500.2500 ####[facility] [address] [place], [address] CO2 [Moles/Vol] 27.0 mmol/L Normal 21.0-32.0 [facility] Comment on above: Performed By: #### L 100.0100, L500.2500 ####[facility] [address] [place], [address] Creatinine [Mass/Vol] 1.21 mg/dL High 0.55-1.02 [facility] Comment on above: Result Comment: The validity of the calculated GFR GFRAA in patients over 70 years has not been determined. Clinical correlation is essential. Performed By: #### L 100.0100, L500.2500 ####[facility] [address] [place], [address] EST GFR - AA 55 mL/min Low >60 [facility] Comment on above: Result Comment: Afri can Burundian GFR Calc Performed By: #### L 100.0100, L500.2500 ####[facility] [address] [place], [address] GAP 7 Normal 5-15 [facility] Comment on above: Performed By: #### L 100.0100, L500.2500 ####[facility] [address] [place], [address] GFR/1.73 sq M.predicted among non-blacks MDRD (S/P/Bld) [Vol rate/Area] 46 mL/min/{1.73_m2} Low >60 [facility] Comment on above: Result Comment: Non- GFR Calc Performed By: #### L 100.0100, L500.2500 ####[facility] [address] [place], [address] Glucose [Mass/Vol] 88 mg/dL Normal 74-106 [facility] Comment on above: Performed By: #### L 100.0100, L500.2500 ####[facility] [address] [place], [address] Potassium [Moles/Vol] 4.4 mmol/L Normal 3.5-5.1 [facility] Comment on above: Performed By: #### L 100.0100, L500.2500 ####[facility] [address] [place], [address] Sodium [Moles/Vol] 139 mmol/L Normal 136-145 [facility] Comment on above: Performed By: #### L 100.0100, L500.2500 ####[facility] [address] [place], [address] Urea nitrogen [Mass/Vol] 20 mg/dL High 7-18 [facility] Comment on above: Performed By: #### L 100.0100, L500.2500 ####[facility] [address] [place], [address] Basophil percentageOrdered B y: Soraya Mark on 04-10-2024 Basophils/100 WBC (Bld) 1.1 % High 0-1 [facility] Blood urea nitrogen (BUN)/cr eatinine ratioOrdered By: Soraya Mark on 04-10-2024 Urea nitrogen/Creatinine [Mass ratio] 16.5 mg/mg 10-20 [facility] CBC W/Diff, Automatedon 01-0 2-2024 Absolute Lymph 1.50 X10 3/uL Normal 0.83-4.51 [facility] Comment on above: Performed By: #### L 100.0100, L500.2500 ####[facility] [address] [place], [address] Absolute Neut 7.1 X10 3/uL Normal 2.0-7.7 [facility] Comment on above: Performed By: #### L 100.0100, L500.2500 ####[facility] [address] [place], [address] Basophils/100 WBC (Bld) 1.1 % High 0-1 [facility] Comment on above: Performed By: #### L 100.0100, L500.2500 ####[facility] [address] [place], [address] Eosinophils/100 WBC (Bld) 3.3 % Normal 0-5 [facility] Comment on above: Performed By: #### L 100.0100, L500.2500 ####[facility] [address] [place], [address] Erythrocyte distribution width (RBC) [Ratio] 14.4 % Normal 11.6-14.6 [facility] Comment on above: Performed By: #### L 100.0100, L500.2500 ####[facility] [address] [place], [address] Hematocrit (Bld) [Volume fraction] 37.4 % Normal 37-47 [facility] Comment on above: Performed By: #### L 100.0100, L500.2500 ####[facility] [address] [place], [address] Hemoglobin (Bld) [Mass/Vol] 11.5 g/dL Low 12.0-15.0 [facility] Comment on above: Performed By: #### L 100.0100, L500.2500 ####[facility] [address] [place], [address] IG% 0.500 Normal 0.0-0.9 [facility] Comment on above: Result Comment: IG% - Immature Granulocytes (promyelocytes, myelocytes and metamyelocytes) > 1% indicates that a LEFT SHIFT is Present. Performed By: #### L 100.0100, L500.2500 ####[facility] [address] [place], [address] Lymphocytes/100 WBC (Bld) 14.9 % Low 19-41 [facility] Comment on above: Performed By: #### L 100.0100, L500.2500 ####[facility] [address] [place], [address] MCH (RBC) [Entitic mass] 28.7 pg Normal 27.0-32.0 [facility] Comment on above: Performed By: #### L 100.0100, L500.2500 ####[facility] [address] [place], [address] MCHC (RBC) [Mass/Vol] 30.7 g/dL Low 32-36 [facility] Comment on above: Performed By: #### L 100.0100, L500.2500 ####[facility] [address] [place], [address] MCV (RBC) [Entitic vol] 93.3 fL Normal 81-99 [facility] Comment on above: Performed By: #### L 100.0100, L500.2500 ####[facility] [address] [place], [address] Monocytes/100 WBC (Bld) 10.2 % High 0-10 [facility] Comment on above: Performed By: #### L 100.0100, L500.2500 ####[facility] [address] [place], [address] Neutrophils/100 WBC (Bld) 70.0 % Normal 47-70 [facility] Comment on above: Performed By: #### L 100.0100, L500.2500 ####[facility] [address] [place], [address] Nucleated RBC (Bld) [#/Vol] 0 10*3/uL Normal 0-5 [facility] Comment on above: Performed By: #### L 100.0100, L500.2500 ####[facility] [address] [place], [address] Platelet mean volume (Bld) [Entitic vol] 11.0 fL Normal 6.2-12.0 [facility] Comment on above: Performed By: #### L 100.0100, L500.2500 ####[facility] [address] [place], [address] Platelets (Bld) [#/Vol] 443 10*3/uL Normal 150-450 [facility] Comment on above: Performed By: #### L 100.0100, L500.2500 ####[facility] [address] [place], [address] RBC (Bld) [#/Vol] 4.01 10*6/uL Low 4.2-5.4 [facility] Comment on above: Performed By: #### L 100.0100, L500.2500 ####[facility] [address] [place], [address] RDW SD 48.5 fl High 35.1-43.9 [facility] Comment on above: Performed By: #### L 100.0100, L500.2500 ####[facility] [address] [place], [address] WBC (Bld) [#/Vol] 10.1 10*3/uL Normal 4.4-11.0 [facility] Comment on above: Performed By: #### L 100.0100, L500.2500 ####[facility] [address] [place], [address] Carbon dioxide measurementOr dered By: Soraya Mark on 04-10-2024 CO2 [Moles/Vol] 27.0 mmol/L 21.0-32.0 [facility] Cardiology Visit Reporton Cardiology Visit Report [facility] [address] [place] [address] OFFICE VISIT Date of Service: 04/10/24 MR#: [id number] Acct: [id number] Name: HILDA MULLINS Rep #: [id number] : 1945 Provider: MATILDE Chen Age/Sex: 78/F Location[place] [facility] Status: Signed HPI HPI History of Present Illness Details: 78-year-old lady with a previous history of recurrent syncopal spells which grew back at least 60 years. On this last event she was at a neighborhood event and then she suddenly felt herself getting warm she felt that she was going to pass out she was having some visual problems she became diaphoretic and pale and then apparently passed out. Neighbor felt that she could not feel her pulse and they asked her to see the physician. This event has been attributed to blood sugar issues for many years. Her passing out spells at 1 time culminated after her wedding in a cardiac catheterization when she was diagnosed as having mitral valve prolapse. She has never had an echocardiogram. She has a few of these episodes every year and she can always tell it coming on. She has been on antihypertensive therapy but has not had any chest pain to suggest angina. She has been compliant with all her medications. She is completely asymptomatic otherwise with no shortness of breath. Her physical exam demonstrates clear lung gaona and midsystolic click at 3/6 holosystolic murmur radiating towards the axilla no pedal edema and her electrocardiogram demonstrating sinus rhythm with a rate of 84 bpm. Echocardiogram in December 2023 demonstrated an ejection fraction of 65%, left atrium severely enlarged, mitral valve posterior leaflet with prolapse with moderate to severe anterior directed mitral valve regurg. FREDERIC on January 07, 2024 demonstrated moderately severe anterior directed mitral valve insufficiency. She underwent a diagnostic heart catheterization on January 17, 2024 which demonstrated mild coronary artery disease, preserved ejection fraction with moderately severe mitral valve regurg with mitral valve prolapse. She was referred to [facility] for mitral valve repair. Patient did undergo a mitral valve repair on March 24, 2024 at [facility]. Postoperatively she had atrial fibs with RVR. She was started on IV Amio however this was discontinued given that she had sinus bradycardia with junctional rhythm however she went back into atrial for with RVR, amiodarone drip was restarted. Rates improved. She was also noted to have mild hypotension, this was felt to be related to her Lasix in the a.m. She was discharged home on amiodarone twice a day for 1 week then once a day. After that she could be transition to Toprol. She was also noted to have bilateral pleural effusions. She did not require a thoracentesis due to it being too small to tap. She was also noted to be anemic. Today she is more SOB, she did not sleep well last night. She has not had any chest pain. She moe sometimes have incisional pain. She has not had any palpitations since she has been home, She was aware of her Afib at home. Her main concern is her shortness of breath and fatigue. She does not have any lower extremity edema. She is not able to sleep in her bed yet. Once able she would like to participate in cardiac rehab. Intake Vital Signs 01/28/24 06:47 04/10/24 13:45 04/10/24 13:54 Height 5 ft 2 in 5 ft 2 in 5 ft 2 in Weight: 148 lb BMI 27.1 BP 114/75 Position Sitting Respiration 18 Pulse 73 Pulse Source Monitor Pulse Oximetry (%) 98 Intake Visit Reasons: S/P [facility] 03/24 Medication Assistant Required: No Is patient in pain?: No Allergies oxycodone Allergy (Severe, Verified 04/10/24 13:58) Nausea omeprazole Allergy (Intermediate, Verified 04/10/24 13:58) Vomiting Sulfa (Sulfonamide Antibiotics) Allergy (Mild, Verified 04/10/24 13:58) Itching codeine Allergy (Verified 04/10/24 13:58) Vomiting methylprednisolone (From Medrol) Adverse Reaction (Severe, Verified 04/10/24 13:58) Itching Medications ???Medication ???Instructions ???Recorded ???Confirmed ???Type pantoprazole 20 mg tablet,delayed 20 mg PO DAILY 01/05/22 04/10/24 History release (Protonix) amiodarone 200 mg tablet 200 mg PO QDAY 04/10/24 04/10/24 History aspirin 81 mg tablet,delayed 81 mg PO QDAY 04/10/24 04/10/24 History release (Adult Low Dose Aspirin) magnesium oxide 400 mg PO BID #180 caps 04/10/24 04/10/24 Rx metoprolol succinate 50 mg 50 mg PO BID #180 tabs 04/10/24 04/10/24 Rx tablet,extended release 24 hr Have you fallen in the past year?: No PFSH Medical History (Updated 04/10/24 @ 08:34 by Soraya CLAYTON, PA) Postoperative atrial fibrillation Wears hearing aid Wears glasses Post-menopausal Anxiety History of steroid therapy Back p (more content not included)... Normal [facility] Chest PA and Lateralon 04-10 Chest PA and Lateral [facility] [address] [place] [address] [id number] Chest PA and Lateral MR#: [id number] Acct: [id number] Name: HILDA MULLINS Rep #: [id number] : 1945 F 78 From: Sushma Huang PCP: Dr. Davey Valente, DO Status: REG CLI Study: Chest PA and Lateral Date of Exam: 04/10/24 Exam# [id number] Ordering Dr: Soraya Mark PA :[id number] INDICATION: post op OPEN HEART SURGERY 2 WEEKS AGO EXAMINATION/TECHNIQUE: X-RAY - XR Chest 2 Views COMPARISON: Prior study dated: 01/09/2024 FINDINGS: LINES/DEVICES: None. LUNGS: No consolidation. Small bilateral pleural effusions. No pneumothorax. MEDIASTINUM: Aorta is atherosclerotic. CARDIAC SILHOUETTE: Not enlarged. Sternal wires. BONES AND SOFT TISSUES: No acute abnormalities. Electrodes overlying the spine unchanged. RAD/Chest PA and Lateral IMPRESSION: Small bilateral pleural effusions. Poststernotomy. Electronically Signed: Sushma Castañeda MD at 5:14 EST , CC: Dr. Davey Valente, DO; MATILDE Rapp Botany Technician: Signed Normal [facility] Chloride measurementOrdered By: Soraya Mark on 04-10-2024 Chloride [Moles/Vol] 105 mmol/L 98-107 [facility] Eosinophil percentageOrdered By: Soraya Mark on 04-10-2024 Eosinophils/100 WBC (Bld) 3.3 % 0-5 [facility] Erythrocyte distribution wid th ratioOrdered By: Soraya Mark on 04-10-2024 Erythrocyte distribution width (RBC) [Ratio] 14.4 % 11.6-14.6 [facility] Erythrocyte distribution wid th standard deviationOrdered By: Soraya Mark on 04-10-2024 Erythrocyte distribution width (RBC) [Entitic vol] 48.5 fL High 35.1-43.9 [facility] Estimated glomerular filtrat ion rate (GFR) AmericanOrdered By: Soraya Mark on 04-10-2024 Estimated GFR (MDRD) Amer 55 mL/min Low >60 [facility] Comment on above: GFR Calc Glomerular filtration rate ( GFR) estimationOrdered By: Soraya Mark on 04-10-2024 Estimated GFR (MDRD) Non-Af Amer 46 mL/min Low >60 [facility] Comment on above: Non- GFR Calc Glucose measurementOrdered B y: Soraya Mark on 04-10-2024 Glucose [Mass/Vol] 88 mg/dL 74-106 [facility] Hematocrit Auto (Bld) [Volum e fraction]Ordered By: Soraya Mark on 04-10-2024 Hematocrit (Bld) [Volume fraction] 37.4 % 37-47 [facility] Hemoglobin measurementOrdere d By: Soraya Mark on 04-10-2024 Hemoglobin (Bld) [Mass/Vol] 11.5 g/dL Low 12.0-15.0 [facility] Immature granulocytes/100 WB C Auto (Bld)Ordered By: Soraya Mark on 04-10-2024 Immature granulocytes/100 WBC (Bld) 0.500 % 0.0-0.9 [facility] Comment on above: IG% - Immature Granu locytes (promyelocytes, myelocytes and metamyelocytes) > 1% indicates that a LEFT SHIFT is Present. Lymphocytes Auto (Unsp spec) [#/Vol]Ordered By: Soraya Mark on 04-10-2024 Lymphocytes (Bld) [#/Vol] 1.50 10*3/uL 0.83-4.51 [facility] Lymphocytes/100 WBC Auto (Un sp spec)Ordered By: Soraya Mark on 04-10-2024 Lymphocytes/100 WBC (Bld) 14.9 % Low 19-41 [facility] MCV (mean corpuscular volume ) determinationOrdered By: Soraya Mark on 04-10-2024 MCV (RBC) [Entitic vol] 93.3 fL 81-99 [facility] Mean corpuscular hemoglobin (MCH) determinationOrdered By: Soraya Mark on 04-10-2024 MCH (RBC) [Entitic mass] 28.7 pg 27.0-32.0 [facility] Mean corpuscular hemoglobin concentration (MCHC) determinationOrdered By: Soraya Mark on 04-10-2024 MCHC (RBC) [Mass/Vol] 30.7 g/dL Low 32-36 [facility] Mean platelet volume determi nationOrdered By: Soraya Mark on 04-10-2024 Platelet mean volume (Bld) [Entitic vol] 11.0 fL 6.2-12.0 [facility] Monocyte percentageOrdered B y: Soraya Mark on 04-10-2024 Monocytes/100 WBC (Bld) 10.2 % High 0-10 [facility] Neutrophil percentageOrdered By: Soraya Mark on 04-10-2024 Neutrophils/100 WBC (Bld) 70.0 % 47-70 [facility] Nucleated red blood cell per centageOrdered By: Soraya Mark on 04-10-2024 Nucleated RBC/100 WBC (Bld) [Ratio] 0 % 0-5 [facility] Platelet countOrdered By: Leidy Mark on 04-10-2024 Platelets (Bld) [#/Vol] 443 10*3/uL 150-450 [facility] Potassium measurementOrdered By: Soraya Mark on 04-10-2024 Potassium [Moles/Vol] 4.4 mmol/L 3.5-5.1 [facility] RBC Auto (Bld) [#/Vol]Ordere d By: Soraya Mark on 04-10-2024 RBC (Bld) [#/Vol] 4.01 10*6/uL Low 4.2-5.4 [facility] Serum anion gap measurementO rdered By: Soraya Mark on 04-10-2024 Anion gap [Moles/Vol] 7 mmol/L 5-15 [facility] Serum or plasma calcium mariely urement (mass/volume)Ordered By: Soraya Mark on 04-10-2024 Calcium [Mass/Vol] 9.7 mg/dL 8.5-10.1 [facility] Serum or plasma creatinine m easurement (mass/volume)Ordered By: Soraya Mark on 04-10-2024 Creatinine [Mass/Vol] 1.21 mg/dL High 0.55-1.02 [facility] Comment on above: The validity of the calculated GFR & GFRAA in patients over 70 years has not been determined. Clinical correlation is essential. Serum or plasma urea nitroge n measurement (mass/volume)Ordered By: Soraya Mark on 04-10-2024 Urea nitrogen [Mass/Vol] 20 mg/dL High 7-18 [facility] Sodium levelOrdered By: Vinnie Mark on 04-10-2024 Sodium [Moles/Vol] 139 mmol/L 136-145 [facility] White blood cell (WBC) count Ordered By: Soraya Mark on 04-10-2024 WBC (Bld) [#/Vol] 10.1 10*3/uL 4.4-11.0 [facility] MANAGEMon 03-31-2024 CASE MANAGEM Normal [facility] CNDSon 03-31-2024 CNDS Normal [facility] NUTRITIONon 03-31-2024 NUTRITION Normal [facility] THERAPY NTon 03-31-2024 THERAPY NT Normal [facility] CBC panel Auto (Bld)on 03-30 Erythrocyte distribution width (RBC) [Ratio] 13.9 % Normal 11.5-15.0 [facility] Comment on above: Order Comment: Speci men Type: BLOOD SPECIMENOrdering Facility: [facility] Address: [address] [place] [address] Performed By: #### 5 8410-2 ####[facility] [id number] [place] [address] [place] Hematocrit (Bld) [Volume fraction] 35.0 % Low 36.0-46.0 [facility] Comment on above: Order Comment: Speci men Type: BLOOD SPECIMENOrdering Facility: [facility] Address: [address] [place] [address] Performed By: #### 5 8410-2 ####[facility] [id number] [place] [address] [place] Hemoglobin (Bld) [Mass/Vol] 11.3 g/dL Low 11.5-15.5 [facility] Comment on above: Order Comment: Speci men Type: BLOOD SPECIMENOrdering Facility: [facility] Address: [address] [place] [address] Performed By: #### 5 8410-2 ####[facility] [id number] [place] [address] [place] MCH (RBC) [Entitic mass] 29.4 pg Normal 26.0-34.0 [facility] Comment on above: Order Comment: Speci men Type: BLOOD SPECIMENOrdering Facility: [facility] Address: [address] [place] [address] Performed By: #### 5 8410-2 ####[facility] [id number] [place] [address] [place] MCHC (RBC) [Mass/Vol] 32.3 g/dL Normal 30.5-36.0 [facility] Comment on above: Order Comment: Speci men Type: BLOOD SPECIMENOrdering Facility: [facility] Address: [address] [place] [address] Performed By: #### 5 8410-2 ####[facility] [id number] [place] [address] [place] MCV (RBC) [Entitic vol] 90.9 fL Normal 80.0-100.0 [facility] Comment on above: Order Comment: Speci men Type: BLOOD SPECIMENOrdering Facility: [facility] Address: [address] [place] [address] Performed By: #### 5 8410-2 ####[facility] [id number] [place] [address] [place] Nucleated RBC (Bld) [#/Vol] 10*3/uL Normal <0.01 [facility] Comment on above: Order Comment: Speci men Type: BLOOD SPECIMENOrdering Facility: [facility] Address: [address] [place] [address] Performed By: #### 5 8410-2 ####[facility] [id number] [place] [address] [place] Platelet mean volume (Bld) [Entitic vol] 11.2 fL Normal 9.0-12.7 [facility] Comment on above: Order Comment: Speci men Type: BLOOD SPECIMENOrdering Facility: [facility] Address: [address] [place] [address] Performed By: #### 5 8410-2 ####[facility] [id number] [place] [address] [place] Platelets (Bld) [#/Vol] 217 10*3/uL Normal 150-400 [facility] Comment on above: Order Comment: Speci men Type: BLOOD SPECIMENOrdering Facility: [facility] Address: [address] [place] [address] Performed By: #### 5 8410-2 ####[facility] [id number] [place] [address] [place] RBC (Bld) [#/Vol] 3.85 10*6/uL Low 3.90-5.20 [facility] Comment on above: Order Comment: Speci men Type: BLOOD SPECIMENOrdering Facility: [facility] Address: [address] [place] [address] Performed By: #### 5 8410-2 ####[facility] [id number] [place] [address] [place] WBC (Bld) [#/Vol] 10.20 10*3/uL Normal 3.70-11.00 [facility] Comment on above: Order Comment: Speci men Type: BLOOD SPECIMENOrdering Facility: [facility] Address: [address] [place] [address] Performed By: #### 5 8410-2 ####[facility] [id number] [place] [address] [place] Comprehensive metabolic 2000 panelon 03-30-2024 Albumin [Mass/Vol] 3.4 g/dL Low 3.9-4.9 [facility] Comment on above: Order Comment: Speci men Type: BLOOD SPECIMENOrdering Facility: [facility] Address: [address] [place] [address] Performed By: #### 2 4323-8 ####[facility] [id number] [place] [address] [place] ALP [Catalytic activity/Vol] 81 U/L Normal 34-123 [facility] Comment on above: Order Comment: Speci men Type: BLOOD SPECIMENOrdering Facility: [facility] Address: [address] [place] [address] Performed By: #### 2 4323-8 ####[facility] [id number] [place] [address] [place] ALT [Catalytic activity/Vol] 14 U/L Normal 7-38 [facility] Comment on above: Order Comment: Speci men Type: BLOOD SPECIMENOrdering Facility: [facility] Address: [address] [place] [address] Performed By: #### 2 4323-8 ####[facility] [id number] [place] [address] [place] Anion gap [Moles/Vol] 16 mmol/L High 8-15 [facility] Comment on above: Order Comment: Speci men Type: BLOOD SPECIMENOrdering Facility: [facility] Address: [address] [place] [address] Performed By: #### 2 4323-8 ####[facility] [id number] [place] [address] [place] AST [Catalytic activity/Vol] 25 U/L Normal 13-35 [facility] Comment on above: Order Comment: Speci men Type: BLOOD SPECIMENOrdering Facility: [facility] Address: [address] [place] [address] Performed By: #### 2 4323-8 ####[facility] [id number] [place] [address] [place] Bilirubin [Mass/Vol] 0.6 mg/dL Normal 0.2-1.3 [facility] Comment on above: Order Comment: Speci men Type: BLOOD SPECIMENOrdering Facility: [facility] Address: [address] [place] [address] Performed By: #### 2 4323-8 ####[facility] [id number] [address] [address] [place] Calcium [Mass/Vol] 9.4 mg/dL Normal 8.5-10.2 [facility] Comment on above: Order Comment: Speci men Type: BLOOD SPECIMENOrdering Facility: [facility] Address: [address] [place] [address] Performed By: #### 2 4323-8 ####[facility] [id number] [place] [address] [place] Chloride [Moles/Vol] 100 mmol/L Normal 98-107 [facility] Comment on above: Order Comment: Speci men Type: BLOOD SPECIMENOrdering Facility: [facility] Address: [address] [place] [address] Performed By: #### 2 4323-8 ####[facility] [id number] [place] [address] [place] CO2 [Moles/Vol] 23 mmol/L Normal 22-30 [facility] Comment on above: Order Comment: Speci men Type: BLOOD SPECIMENOrdering Facility: [facility] Address: [address] [place] [address] Performed By: #### 2 4323-8 ####[facility] [id number] [place] [address] [place] Creatinine [Mass/Vol] 0.75 mg/dL Normal 0.58-0.96 [facility] Comment on above: Order Comment: Speci men Type: BLOOD SPECIMENOrdering Facility: [facility] Address: [address] [place] [address] Performed By: #### 2 4323-8 ####[facility] [id number] [place] [address] [place] Creatinine and Glomerular filtration rate.predicted panel (S/P/Bld) 81 mL/min/1.73m??? Normal >=60 [facility] Comment on above: Order Comment: Trina trujillo Type: BLOOD SPECIMENOrdering Facility: [facility] Address: [address] [place] [address] Result Comment: Lexus mated Glomerular Filtration Rate (eGFR) is calculated using the 2020 CKD-EPI creatinine equation. This equation utilizes serum creatinine, sex, and age as parameters. The creatinine assay has traceable calibration to isotope dilution-mass spectrometry. Refer to KDIGO guidelines for clinical interpretation. In patients with unstable renal function, e.g. those with acute kidney injury, the eGFR may not accurately reflect actual GFR. Performed By: #### 2 4323-8 ####[facility] [id number] [place] [address] [place] Glucose [Mass/Vol] 129 mg/dL High 74-99 [facility] Comment on above: Order Comment: Trina trujillo Type: BLOOD SPECIMENOrdering Facility: [facility] Address: [address] [place] [address] Result Comment: The [place] [employer] (ADA) provides guidance for cutoff values for fasting glucose and random glucose. The ADA defines fasting as no caloric intake for at least 8 hours. Fasting plasma glucose results between 100 to 125 mg/dL indicate increased risk for diabetes (prediabetes).Fasting plasma glucose results greater than or equal to 126 mg/dL meet the criteria for diagnosis of diabetes. In the absence of unequivocal hyperglycemia, results should be confirmed by repeat testing. In a patient with classic symptoms of hyperglycemia or hyperglycemic crisis, random plasma glucose results greater than or equal to 200 mg/dL meet the criteria for diagnosis of diabetes.Reference: Standards of Medical Care in Diabetes 2016, [place] [employer]. Diabetes Care. 2016.39(Suppl 1). Performed By: #### 2 4323-8 ####[facility] [id number] [place] [address] [place] Potassium [Moles/Vol] 3.9 mmol/L Normal 3.7-5.1 [facility] Comment on above: Order Comment: Speci men Type: BLOOD SPECIMENOrdering Facility: [facility] Address: [address] [place] [address] Performed By: #### 2 4323-8 ####[facility] [id number] [place] [address] [place] Protein [Mass/Vol] 6.3 g/dL Normal 6.3-8.0 [facility] Comment on above: Order Comment: Speci men Type: BLOOD SPECIMENOrdering Facility: [facility] Address: [address] [place] [address] Performed By: #### 2 4323-8 ####[facility] [id number] [place] [address] [place] Sodium [Moles/Vol] 139 mmol/L Normal 136-144 [facility] Comment on above: Order Comment: Speci men Type: BLOOD SPECIMENOrdering Facility: [facility] Address: [address] [place] [address] Performed By: #### 2 4323-8 ####[facility] [id number] [place] [address] [place] Urea nitrogen [Mass/Vol] 17 mg/dL Normal 7-21 [facility] Comment on above: Order Comment: Speci men Type: BLOOD SPECIMENOrdering Facility: [facility] Address: [address] [place] [address] Performed By: #### 2 4323-8 ####[facility] [id number] [place] [address] [place] ECG COMPLETEon 03-30-2024 ECG COMPLETE Normal [facility] XR CHEST 2V FRONTAL/LATon XR CHEST 2V FRONTAL/LAT Normal [facility] C diff Tox gens Stl Ql JIN+p joeyeon 03-29-2024 C. difficile toxin genes JIN+probe Ql (Stl) Negative Normal Negative for C. difficile toxin by PCR [facility] Comment on above: Order Comment: Speci men Type: STOOL SPECIMENOrdering Facility: [facility] Address: [address] [place] [address] Performed By: #### 5 4067-4 ####[facility] [id number] [place] [address] [place] CBC panel Auto (Bld)on 03-29 Erythrocyte distribution width (RBC) [Ratio] 14.2 % Normal 11.5-15.0 [facility] Comment on above: Order Comment: Speci men Type: BLOOD SPECIMENOrdering Facility: [facility] Address: [address] [place] [address] Performed By: #### 5 8410-2 ####[facility] [id number] [place] [address] [place] Hematocrit (Bld) [Volume fraction] 33.0 % Low 36.0-46.0 [facility] Comment on above: Order Comment: Speci men Type: BLOOD SPECIMENOrdering Facility: [facility] Address: [address] [place] [address] Performed By: #### 5 8410-2 ####[facility] [id number] [place] [address] [place] Hemoglobin (Bld) [Mass/Vol] 10.5 g/dL Low 11.5-15.5 [facility] Comment on above: Order Comment: Speci men Type: BLOOD SPECIMENOrdering Facility: [facility] Address: [address] [place] [address] Performed By: #### 5 8410-2 ####[facility] [id number] [place] [address] [place] MCH (RBC) [Entitic mass] 28.4 pg Normal 26.0-34.0 [facility] Comment on above: Order Comment: Speci men Type: BLOOD SPECIMENOrdering Facility: [facility] Address: [address] [place] [address] Performed By: #### 5 8410-2 ####[facility] [id number] [place] [address] [place] MCHC (RBC) [Mass/Vol] 31.8 g/dL Normal 30.5-36.0 [facility] Comment on above: Order Comment: Speci men Type: BLOOD SPECIMENOrdering Facility: [facility] Address: [address] [place] [address] Performed By: #### 5 8410-2 ####[facility] [id number] [place] [address] [place] MCV (RBC) [Entitic vol] 89.2 fL Normal 80.0-100.0 [facility] Comment on above: Order Comment: Speci men Type: BLOOD SPECIMENOrdering Facility: [facility] Address: [address] [place] [address] Performed By: #### 5 8410-2 ####[facility] [id number] [place] [address] [place] Nucleated RBC (Bld) [#/Vol] 10*3/uL Normal <0.01 [facility] Comment on above: Order Comment: Speci men Type: BLOOD SPECIMENOrdering Facility: [facility] Address: [address] [place] [address] Performed By: #### 5 8410-2 ####[facility] [id number] [place] [address] [place] Platelet mean volume (Bld) [Entitic vol] 12.5 fL Normal 9.0-12.7 [facility] Comment on above: Order Comment: Speci men Type: BLOOD SPECIMENOrdering Facility: [facility] Address: [address] [place] [address] Performed By: #### 5 8410-2 ####[facility] [id number] [place] [id number] [place] Platelets (Bld) [#/Vol] 184 10*3/uL Normal 150-400 [facility] Comment on above: Order Comment: Speci men Type: BLOOD SPECIMENOrdering Facility: [facility] Address: [address] [place] [address] Performed By: #### 5 8410-2 ####[facility] [id number] [place] [address] [place] RBC (Bld) [#/Vol] 3.70 10*6/uL Low 3.90-5.20 [facility] Comment on above: Order Comment: Speci men Type: BLOOD SPECIMENOrdering Facility: [facility] Address: [address] [place] [address] Performed By: #### 5 8410-2 ####[facility] [id number] [place] [address] [place] WBC (Bld) [#/Vol] 9.85 10*3/uL Normal 3.70-11.00 [facility] Comment on above: Order Comment: Speci men Type: BLOOD SPECIMENOrdering Facility: [facility] Address: [address] [place] [address] Performed By: #### 5 8410-2 ####[facility] [id number] [place] [id number] [place] Comprehensive metabolic 2000 panelon 03-29-2024 Albumin [Mass/Vol] 3.3 g/dL Low 3.9-4.9 [facility] Comment on above: Order Comment: Speci men Type: BLOOD SPECIMENOrdering Facility: [facility] Address: [address] [place] [address] Performed By: #### 2 4323-8, ####[facility] [id number] [address] [address] [place] ALP [Catalytic activity/Vol] 83 U/L Normal 34-123 [facility] Comment on above: Order Comment: Speci men Type: BLOOD SPECIMENOrdering Facility: [facility] Address: [address] [place] [address] Performed By: #### 2 4323-8, ####[facility] [id number] [place] [id number] [place] ALT [Catalytic activity/Vol] 17 U/L Normal 7-38 [facility] Comment on above: Order Comment: Speci men Type: BLOOD SPECIMENOrdering Facility: [facility] Address: [address] [place] [address] Performed By: #### 2 4328, ####[facility] [id number] [place] [address] [place] Anion gap [Moles/Vol] 14 mmol/L Normal 8-15 [facility] Comment on above: Order Comment: Speci men Type: BLOOD SPECIMENOrdering Facility: [facility] Address: [address] [place] [address] Performed By: #### 2 4323-8, ####[facility] [id number] [place] [address] [place] AST [Catalytic activity/Vol] 26 U/L Normal 13-35 [facility] Comment on above: Order Comment: Speci men Type: BLOOD SPECIMENOrdering Facility: [facility] Address: [address] [place], [place] [address] Performed By: #### 2 4323-8, ####[facility] [id number] [place] [id number] [place] Bilirubin [Mass/Vol] 0.5 mg/dL Normal 0.2-1.3 [facility] Comment on above: Order Comment: Speci men Type: BLOOD SPECIMENOrdering Facility: [facility] Address: [address] [place] [address] Performed By: #### 2 4323-8, ####[facility] [id number] [place] [address] [place] Calcium [Mass/Vol] 9.1 mg/dL Normal 8.5-10.2 [facility] Comment on above: Order Comment: Speci men Type: BLOOD SPECIMENOrdering Facility: [facility] Address: [address] [place] [address] Performed By: #### 2 4323-8, ####[facility] [id number] [place] [address] [place] Chloride [Moles/Vol] 101 mmol/L Normal 98-107 [facility] Comment on above: Order Comment: Speci men Type: BLOOD SPECIMENOrdering Facility: [facility] Address: [address] [place] [address] Performed By: #### 2 4323-8, ####[facility] [id number] [place] [address] [place] CO2 [Moles/Vol] 25 mmol/L Normal 22-30 [facility] Comment on above: Order Comment: Speci men Type: BLOOD SPECIMENOrdering Facility: [facility] Address: [address] [place] [address] Performed By: #### 2 4323-8, ####[facility] [id number] [place] [address] [place] Creatinine [Mass/Vol] 0.76 mg/dL Normal 0.58-0.96 [facility] Comment on above: Order Comment: Speci men Type: BLOOD SPECIMENOrdering Facility: [facility] Address: [address] [place] [address] Performed By: #### 2 4323-8, 29023-9 ####[facility] [id number] [place] [address] [place] Creatinine and Glomerular filtration rate.predicted panel (S/P/Bld) 79 mL/min/1.73m??? Normal >=60 [facility] Comment on above: Order Comment: Trina trujillo Type: BLOOD SPECIMENOrdering Facility: [facility] Address: [address] [place] [address] Result Comment: Lexus mated Glomerular Filtration Rate (eGFR) is calculated using the 2020 CKD-EPI creatinine equation. This equation utilizes serum creatinine, sex, and age as parameters. The creatinine assay has traceable calibration to isotope dilution-mass spectrometry. Refer to KDIGO guidelines for clinical interpretation. In patients with unstable renal function, e.g. those with acute kidney injury, the eGFR may not accurately reflect actual GFR. Performed By: #### 2 4323-8, 26308-3 ####[facility] [id number] [place] [address] [place] Glucose [Mass/Vol] 95 mg/dL Normal 74-99 [facility] Comment on above: Order Comment: Trina trujillo Type: BLOOD SPECIMENOrdering Facility: [facility] Address: [address] [place] [address] Result Comment: The [place] [employer] (ADA) provides guidance for cutoff values for fasting glucose and random glucose. The ADA defines fasting as no caloric intake for at least 8 hours. Fasting plasma glucose results between 100 to 125 mg/dL indicate increased risk for diabetes (prediabetes).Fasting plasma glucose results greater than or equal to 126 mg/dL meet the criteria for diagnosis of diabetes. In the absence of unequivocal hyperglycemia, results should be confirmed by repeat testing. In a patient with classic symptoms of hyperglycemia or hyperglycemic crisis, random plasma glucose results greater than or equal to 200 mg/dL meet the criteria for diagnosis of diabetes.Reference: Standards of Medical Care in Diabetes 2016, [place] [employer]. Diabetes Care. 2016.39(Suppl 1). Performed By: #### 2 4328, ####[facility] [id number] [address] [address] [place] Potassium [Moles/Vol] 4.0 mmol/L Normal 3.7-5.1 [facility] Comment on above: Order Comment: Speci men Type: BLOOD SPECIMENOrdering Facility: [facility] Address: [address] [place], [place] [address] Performed By: #### 2 4322-11, ####[facility] [id number] [place] [id number] [place] Protein [Mass/Vol] 5.9 g/dL Low 6.3-8.0 [facility] Comment on above: Order Comment: Speci men Type: BLOOD SPECIMENOrdering Facility: [facility] Address: [address] [place] [address] Performed By: #### 2 4322-11, ####[facility] [id number] [address] [address] [place] Sodium [Moles/Vol] 140 mmol/L Normal 136-144 [facility] Comment on above: Order Comment: Speci men Type: BLOOD SPECIMENOrdering Facility: [facility] Address: [address] [place] [address] Performed By: #### 2 4322-11, ####[facility] [id number] [address] [address] [place] Urea nitrogen [Mass/Vol] 25 mg/dL High 7-21 [facility] Comment on above: Order Comment: Speci men Type: BLOOD SPECIMENOrdering Facility: [facility] Address: [address] [place] [address] Performed By: #### 2 432-8, ####[facility] [id number] [address] [address] [place] [id number] 03-29-2024 ECG01 Normal [facility] Magnesium SerPl-mCncon 03-29 Magnesium [Mass/Vol] 2.1 mg/dL Normal 1.7-2.3 [facility] Comment on above: Order Comment: Speci men Type: BLOOD SPECIMENOrdering Facility: [facility] Address: [address] [place] [address] Performed By: #### 2 4323-8, 08737-5 ####[facility] [id number] [place] [id number] [place] XR ABDOMEN 1V SUPINEon 03-29 XR ABDOMEN 1V SUPINE Normal [facility] CASE MANAGEMon 03-28-2024 CASE MANAGEM Normal [facility] CBC panel Auto (Bld)on 03-28 Erythrocyte distribution width (RBC) [Ratio] 14.3 % Normal 11.5-15.0 [facility] Comment on above: Order Comment: Speci men Type: BLOOD SPECIMENOrdering Facility: [facility] Address: [address] [place] [address] Performed By: #### 5 8410-2 ####[facility] [id number] [place] [address] [place] Hematocrit (Bld) [Volume fraction] 30.8 % Low 36.0-46.0 [facility] Comment on above: Order Comment: Speci men Type: BLOOD SPECIMENOrdering Facility: [facility] Address: [address] [place] [address] Performed By: #### 5 8410-2 ####[facility] [id number] [place] [id number] [place] Hemoglobin (Bld) [Mass/Vol] 10.0 g/dL Low 11.5-15.5 [facility] Comment on above: Order Comment: Speci men Type: BLOOD SPECIMENOrdering Facility: [facility] Address: [address] [place] [address] Performed By: #### 5 8410-2 ####[facility] [id number] [place] [address] [place] MCH (RBC) [Entitic mass] 29.2 pg Normal 26.0-34.0 [facility] Comment on above: Order Comment: Speci men Type: BLOOD SPECIMENOrdering Facility: [facility] Address: [address] [place] [address] Performed By: #### 5 8410-2 ####[facility] [id number] [place] [address] [place] MCHC (RBC) [Mass/Vol] 32.5 g/dL Normal 30.5-36.0 [facility] Comment on above: Order Comment: Speci men Type: BLOOD SPECIMENOrdering Facility: [facility] Address: [address] [place] [address] Performed By: #### 5 8410-2 ####[facility] [id number] [place] [address] [place] MCV (RBC) [Entitic vol] 89.8 fL Normal 80.0-100.0 [facility] Comment on above: Order Comment: Speci men Type: BLOOD SPECIMENOrdering Facility: [facility] Address: [address] [place] [address] Performed By: #### 5 8410-2 ####[facility] [id number] [place] [address] [place] Nucleated RBC (Bld) [#/Vol] 10*3/uL Normal <0.01 [facility] Comment on above: Order Comment: Speci men Type: BLOOD SPECIMENOrdering Facility: [facility] Address: [address] [place] [address] Performed By: #### 5 8410-2 ####[facility] [id number] [place] [address] [place] Platelet mean volume (Bld) [Entitic vol] 12.8 fL High 9.0-12.7 [facility] Comment on above: Order Comment: Speci men Type: BLOOD SPECIMENOrdering Facility: [facility] Address: [address] [place] [address] Performed By: #### 5 8410-2 ####[facility] [id number] [place] [address] [place] Platelets (Bld) [#/Vol] 156 10*3/uL Normal 150-400 [facility] Comment on above: Order Comment: Speci men Type: BLOOD SPECIMENOrdering Facility: [facility] Address: [address] [place] [address] Performed By: #### 5 8410-2 ####[facility] [id number] [place] [address] [place] RBC (Bld) [#/Vol] 3.43 10*6/uL Low 3.90-5.20 [facility] Comment on above: Order Comment: Speci men Type: BLOOD SPECIMENOrdering Facility: [facility] Address: [address] [place] [address] Performed By: #### 5 8410-2 ####[facility] [id number] [place] [address] [place] WBC (Bld) [#/Vol] 11.43 10*3/uL High 3.70-11.00 [facility] Comment on above: Order Comment: Speci men Type: BLOOD SPECIMENOrdering Facility: [facility] Address: [address] [place] [address] Performed By: #### 5 8410-2 ####[facility] [id number] [place] [address] [place] Comprehensive metabolic 2000 panelon 03-28-2024 Albumin [Mass/Vol] 3.4 g/dL Low 3.9-4.9 [facility] Comment on above: Order Comment: Speci men Type: BLOOD SPECIMENOrdering Facility: [facility] Address: [address] [place] [address] Performed By: #### 2 4323-8 ####[facility] [id number] [place] [address] [place] ALP [Catalytic activity/Vol] 82 U/L Normal 34-123 [facility] Comment on above: Order Comment: Speci men Type: BLOOD SPECIMENOrdering Facility: [facility] Address: [address] [place] [address] Performed By: #### 2 4323-8 ####[facility] [id number] [place] [address] [place] ALT [Catalytic activity/Vol] 19 U/L Normal 7-38 [facility] Comment on above: Order Comment: Speci men Type: BLOOD SPECIMENOrdering Facility: [facility] Address: [address] [place] [address] Performed By: #### 2 4323-8 ####[facility] [id number] [place] [address] [place] Anion gap [Moles/Vol] 13 mmol/L Normal 8-15 [facility] Comment on above: Order Comment: Speci men Type: BLOOD SPECIMENOrdering Facility: [facility] Address: [address] [place] [address] Performed By: #### 2 4323-8 ####[facility] [id number] [place] [address] [place] AST [Catalytic activity/Vol] 28 U/L Normal 13-35 [facility] Comment on above: Order Comment: Speci men Type: BLOOD SPECIMENOrdering Facility: [facility] Address: [address] [place] [address] Performed By: #### 2 4323-8 ####[facility] [id number] [address] [address] [place] Bilirubin [Mass/Vol] 0.5 mg/dL Normal 0.2-1.3 [facility] Comment on above: Order Comment: Speci men Type: BLOOD SPECIMENOrdering Facility: [facility] Address: [address] [place], [place] [address] Performed By: #### 2 4323-8 ####[facility] [id number] [place] [address] [place] Calcium [Mass/Vol] 8.9 mg/dL Normal 8.5-10.2 [facility] Comment on above: Order Comment: Speci men Type: BLOOD SPECIMENOrdering Facility: [facility] Address: [address] [place] [address] Performed By: #### 2 4323-8 ####[facility] [id number] [place] [address] [place] Chloride [Moles/Vol] 100 mmol/L Normal 98-107 [facility] Comment on above: Order Comment: Speci men Type: BLOOD SPECIMENOrdering Facility: [facility] Address: [address] [place], [place] [address] Performed By: #### 2 4323-8 ####[facility] [id number] [place] [id number] [place] CO2 [Moles/Vol] 26 mmol/L Normal 22-30 [facility] Comment on above: Order Comment: Speci men Type: BLOOD SPECIMENOrdering Facility: [facility] Address: [address] [place], [place] [address] Performed By: #### 2 4323-8 ####[facility] [id number] [address] [address] [place] Creatinine [Mass/Vol] 0.85 mg/dL Normal 0.58-0.96 [facility] Comment on above: Order Comment: Trina trujillo Type: BLOOD SPECIMENOrdering Facility: [facility] Address: [address] [place] [address] Performed By: #### 2 4323-8 ####[facility] [id number] [place] [address] [place] Creatinine and Glomerular filtration rate.predicted panel (S/P/Bld) 69 mL/min/1.73m??? Normal >=60 [facility] Comment on above: Order Comment: Trina trujillo Type: BLOOD SPECIMENOrdering Facility: [facility] Address: [address] [place] [address] Result Comment: Lexus mated Glomerular Filtration Rate (eGFR) is calculated using the 2020 CKD-EPI creatinine equation. This equation utilizes serum creatinine, sex, and age as parameters. The creatinine assay has traceable calibration to isotope dilution-mass spectrometry. Refer to KDIGO guidelines for clinical interpretation. In patients with unstable renal function, e.g. those with acute kidney injury, the eGFR may not accurately reflect actual GFR. Performed By: #### 2 4323-8 ####[facility] [id number] [place] [address] [place] Glucose [Mass/Vol] 114 mg/dL High 74-99 [facility] Comment on above: Order Comment: Trina trujillo Type: BLOOD SPECIMENOrdering Facility: [facility] Address: [address] [place] [address] Result Comment: The [place] Diabetes [employer] (ADA) provides guidance for cutoff values for fasting glucose and random glucose. The ADA defines fasting as no caloric intake for at least 8 hours. Fasting plasma glucose results between 100 to 125 mg/dL indicate increased risk for diabetes (prediabetes).Fasting plasma glucose results greater than or equal to 126 mg/dL meet the criteria for diagnosis of diabetes. In the absence of unequivocal hyperglycemia, results should be confirmed by repeat testing. In a patient with classic symptoms of hyperglycemia or hyperglycemic crisis, random plasma glucose results greater than or equal to 200 mg/dL meet the criteria for diagnosis of diabetes.Reference: Standards of Medical Care in Diabetes 2016, [place] [employer]. Diabetes Care. 2016.39(Suppl 1). Performed By: #### 2 4323-8 ####[facility] [id number] [place] [address] [place] Potassium [Moles/Vol] 3.8 mmol/L Normal 3.7-5.1 [facility] Comment on above: Order Comment: Speci men Type: BLOOD SPECIMENOrdering Facility: [facility] Address: [address] [place] [address] Performed By: #### 2 4323-8 ####[facility] [id number] [place] [address] [place] Protein [Mass/Vol] 5.7 g/dL Low 6.3-8.0 [facility] Comment on above: Order Comment: Speci men Type: BLOOD SPECIMENOrdering Facility: [facility] Address: [address] [place] [address] Performed By: #### 2 4323-8 ####[facility] [id number] [place] [address] [place] Sodium [Moles/Vol] 139 mmol/L Normal 136-144 [facility] Comment on above: Order Comment: Speci men Type: BLOOD SPECIMENOrdering Facility: [facility] Address: [address] [place] [address] Performed By: #### 2 4323-8 ####[facility] [id number] [place] [id number] [place] Urea nitrogen [Mass/Vol] 27 mg/dL High 7-21 [facility] Comment on above: Order Comment: Speci men Type: BLOOD SPECIMENOrdering Facility: [facility] Address: [address] [place] [address] Performed By: #### 2 4323-8 ####[facility] [id number] [place] [id number] [place] ECG COMPLETEon 03-28-2024 ECG COMPLETE Normal [facility] THERAPY NTon 03-28-2024 THERAPY NT Normal [facility] THERAPY NT Normal [facility] XR CHEST 1V FRONTAL PORTon 1 05-29-2023 XR CHEST 1V FRONTAL PORT Normal [facility] CBC panel Auto (Bld)on 03-27 Erythrocyte distribution width (RBC) [Ratio] 14.1 % Normal 11.5-15.0 [facility] Comment on above: Order Comment: Speci men Type: BLOOD SPECIMENOrdering Facility: [facility] Address: [address] [place] [address] Performed By: #### 5 8410-2 ####[facility] [id number] [place] [address] [place] Hematocrit (Bld) [Volume fraction] 31.2 % Low 36.0-46.0 [facility] Comment on above: Order Comment: Speci men Type: BLOOD SPECIMENOrdering Facility: [facility] Address: [address] [place] [address] Performed By: #### 5 8410-2 ####[facility] [id number] [place] [address] [place] Hemoglobin (Bld) [Mass/Vol] 10.3 g/dL Low 11.5-15.5 [facility] Comment on above: Order Comment: Speci men Type: BLOOD SPECIMENOrdering Facility: [facility] Address: [address] [place] [address] Performed By: #### 5 8410-2 ####[facility] [id number] [place] [address] [place] MCH (RBC) [Entitic mass] 29.6 pg Normal 26.0-34.0 [facility] Comment on above: Order Comment: Speci men Type: BLOOD SPECIMENOrdering Facility: [facility] Address: [address] [place] [address] Performed By: #### 5 8410-2 ####[facility] [id number] [place] [address] [place] MCHC (RBC) [Mass/Vol] 33.0 g/dL Normal 30.5-36.0 [facility] Comment on above: Order Comment: Speci men Type: BLOOD SPECIMENOrdering Facility: [facility] Address: [address] [place] [address] Performed By: #### 5 8410-2 ####[facility] [id number] [place] [address] [place] MCV (RBC) [Entitic vol] 89.7 fL Normal 80.0-100.0 [facility] Comment on above: Order Comment: Speci men Type: BLOOD SPECIMENOrdering Facility: [facility] Address: [address] [place] [address] Performed By: #### 5 8410-2 ####[facility] [id number] [place] [address] [place] Nucleated RBC (Bld) [#/Vol] 10*3/uL Normal <0.01 [facility] Comment on above: Order Comment: Speci men Type: BLOOD SPECIMENOrdering Facility: [facility] Address: [address] [place] [address] Performed By: #### 5 8410-2 ####[facility] [id number] [place] [address] [place] Platelet mean volume (Bld) [Entitic vol] 13.4 fL High 9.0-12.7 [facility] Comment on above: Order Comment: Speci men Type: BLOOD SPECIMENOrdering Facility: [facility] Address: [address] [place] [address] Performed By: #### 5 8410-2 ####[facility] [id number] [place] [address] [place] Platelets (Bld) [#/Vol] 121 10*3/uL Low 150-400 [facility] Comment on above: Order Comment: Speci men Type: BLOOD SPECIMENOrdering Facility: [facility] Address: [address] [place] [address] Performed By: #### 5 8410-2 ####[facility] [id number] [place] [address] [place] RBC (Bld) [#/Vol] 3.48 10*6/uL Low 3.90-5.20 [facility] Comment on above: Order Comment: Speci men Type: BLOOD SPECIMENOrdering Facility: [facility] Address: [address] [place] [address] Performed By: #### 5 8410-2 ####[facility] [id number] [place] [address] [place] WBC (Bld) [#/Vol] 15.46 10*3/uL High 3.70-11.00 [facility] Comment on above: Order Comment: Speci men Type: BLOOD SPECIMENOrdering Facility: [facility] Address: [address] [place] [address] Performed By: #### 5 8410-2 ####[facility] [id number] [place] [address] [place] Comprehensive metabolic 2000 panelon 03-27-2024 Albumin [Mass/Vol] 3.4 g/dL Low 3.9-4.9 [facility] Comment on above: Order Comment: Speci men Type: BLOOD SPECIMENOrdering Facility: [facility] Address: [address] [place] [address] Performed By: #### 2 4323-8 ####[facility] [id number] [facility] [place] [address] [place] ALP [Catalytic activity/Vol] 91 U/L Normal 34-123 [facility] Comment on above: Order Comment: Speci men Type: BLOOD SPECIMENOrdering Facility: [facility] Address: [address] [place] [address] Performed By: #### 2 4323-8 ####[facility] [id number] [place] [address] [place] ALT [Catalytic activity/Vol] 31 U/L Normal 7-38 [facility] Comment on above: Order Comment: Speci men Type: BLOOD SPECIMENOrdering Facility: [facility] Address: [address] [place] [address] Performed By: #### 2 4323-8 ####[facility] [id number] [place] [address] [place] Anion gap [Moles/Vol] 15 mmol/L Normal 8-15 [facility] Comment on above: Order Comment: Speci men Type: BLOOD SPECIMENOrdering Facility: [facility] Address: [address] [place] [address] Performed By: #### 2 4323-8 ####[facility] [id number] [place] [address] [place] AST [Catalytic activity/Vol] 68 U/L High 13-35 [facility] Comment on above: Order Comment: Speci men Type: BLOOD SPECIMENOrdering Facility: [facility] Address: [address] [place] [address] Result Comment: Resu lts may be falsely increased due to interference from hemolysis. Suggest reorder as clinically indicated. Performed By: #### 2 4323-8 ####[facility] [id number] [place] [address] [place] Bilirubin [Mass/Vol] 0.4 mg/dL Normal 0.2-1.3 [facility] Comment on above: Order Comment: Speci men Type: BLOOD SPECIMENOrdering Facility: [facility] Address: [address] [place] [address] Performed By: #### 2 4323-8 ####[facility] [id number] [facility] [place] [address] [place] Calcium [Mass/Vol] 8.7 mg/dL Normal 8.5-10.2 [facility] Comment on above: Order Comment: Speci men Type: BLOOD SPECIMENOrdering Facility: [facility] Address: [address] [place] [address] Performed By: #### 2 4323-8 ####[facility] [id number] [place] [address] [place] Chloride [Moles/Vol] 94 mmol/L Low 98-107 [facility] Comment on above: Order Comment: Speci men Type: BLOOD SPECIMENOrdering Facility: [facility] Address: [address] [place] [address] Performed By: #### 2 4323-8 ####[facility] [id number] [place] [address] [place] CO2 [Moles/Vol] 21 mmol/L Low 22-30 [facility] Comment on above: Order Comment: Speci men Type: BLOOD SPECIMENOrdering Facility: [facility] Address: [address] [place] [address] Performed By: #### 2 4323-8 ####[facility] [id number] [place] [address] [place] Creatinine [Mass/Vol] 0.72 mg/dL Normal 0.58-0.96 [facility] Comment on above: Order Comment: Speci men Type: BLOOD SPECIMENOrdering Facility: [facility] Address: [address] [place] [address] Performed By: #### 2 4323-8 ####[facility] [id number] [place] [address] [place] Creatinine and Glomerular filtration rate.predicted panel (S/P/Bld) 85 mL/min/1.73m??? Normal >=60 [facility] Comment on above: Order Comment: Trina trujillo Type: BLOOD SPECIMENOrdering Facility: [facility] Address: [address] [place] [address] Result Comment: Lexus mated Glomerular Filtration Rate (eGFR) is calculated using the 2020 CKD-EPI creatinine equation. This equation utilizes serum creatinine, sex, and age as parameters. The creatinine assay has traceable calibration to isotope dilution-mass spectrometry. Refer to KDIGO guidelines for clinical interpretation. In patients with unstable renal function, e.g. those with acute kidney injury, the eGFR may not accurately reflect actual GFR. Performed By: #### 2 4323-8 ####[facility] LABIA [id number] [place] [address] [place] Glucose [Mass/Vol] 263 mg/dL High 74-99 [facility] Comment on above: Order Comment: Trina trujillo Type: BLOOD SPECIMENOrdering Facility: [facility] Address: [address] [place] [address] Result Comment: The [place] Diabetes [employer] (ADA) provides guidance for cutoff values for fasting glucose and random glucose. The ADA defines fasting as no caloric intake for at least 8 hours. Fasting plasma glucose results between 100 to 125 mg/dL indicate increased risk for diabetes (prediabetes).Fasting plasma glucose results greater than or equal to 126 mg/dL meet the criteria for diagnosis of diabetes. In the absence of unequivocal hyperglycemia, results should be confirmed by repeat testing. In a patient with classic symptoms of hyperglycemia or hyperglycemic crisis, random plasma glucose results greater than or equal to 200 mg/dL meet the criteria for diagnosis of diabetes.Reference: Standards of Medical Care in Diabetes 2016, [place] [employer]. Diabetes Care. 2016.39(Suppl 1). Performed By: #### 2 4323-8 ####[facility] LABIA [id number] [place] [address] [place] Potassium [Moles/Vol] 4.4 mmol/L Normal 3.7-5.1 [facility] Comment on above: Order Comment: Trina trujillo Type: BLOOD SPECIMENOrdering Facility: [facility] Address: [address] [place] [address] Performed By: #### 2 4323-8 ####[facility] [id number] [place] [address] [place] Protein [Mass/Vol] 6.0 g/dL Low 6.3-8.0 [facility] Comment on above: Order Comment: Speci men Type: BLOOD SPECIMENOrdering Facility: [facility] Address: [address] [place] [address] Performed By: #### 2 4323-8 ####[facility] [id number] [place] [address] [place] Sodium [Moles/Vol] 130 mmol/L Low 136-144 [facility] Comment on above: Order Comment: Speci men Type: BLOOD SPECIMENOrdering Facility: [facility] Address: [address] [place] [address] Performed By: #### 2 4323-8 ####[facility] [id number] [place] [address] [place] Urea nitrogen [Mass/Vol] 20 mg/dL Normal 7-21 [facility] Comment on above: Order Comment: Speci men Type: BLOOD SPECIMENOrdering Facility: [facility] Address: [address] [place] [address] Performed By: #### 2 4323-8 ####[facility] [id number] [place] [id number] [place] TAU97ep 03-27-2024 ECG01 Normal [facility] ALLIED HEALTHon 03-26-2024 ALLIED HEALTH Normal [facility] CASE MGT INIT ASSESon 2023 CASE MGT INIT ASSES Normal [facility] CBC panel Auto (Bld)on 03-26 Erythrocyte distribution width (RBC) [Ratio] 14.2 % Normal 11.5-15.0 [facility] Comment on above: Order Comment: Speci men Type: BLOOD SPECIMENOrdering Facility: [facility] Address: [address] [place] [address] Performed By: #### 5 8410-2 ####[facility] LABIA [id number] [place] [address] [place] Hematocrit (Bld) [Volume fraction] 32.2 % Low 36.0-46.0 [facility] Comment on above: Order Comment: Speci men Type: BLOOD SPECIMENOrdering Facility: [facility] Address: [address] [place] [address] Performed By: #### 5 8410-2 ####[facility]IA [id number] [place] [address] [place] Hemoglobin (Bld) [Mass/Vol] 10.3 g/dL Low 11.5-15.5 [facility] Comment on above: Order Comment: Speci men Type: BLOOD SPECIMENOrdering Facility: [facility] Address: [address] [place] [address] Performed By: #### 5 8410-2 ####[facility] [id number] [place] [address] [place] MCH (RBC) [Entitic mass] 28.4 pg Normal 26.0-34.0 [facility] Comment on above: Order Comment: Speci men Type: BLOOD SPECIMENOrdering Facility: [facility] Address: [address] [place] [address] Performed By: #### 5 8410-2 ####[facility]IA [id number] [place] [address] [place] MCHC (RBC) [Mass/Vol] 32.0 g/dL Normal 30.5-36.0 [facility] Comment on above: Order Comment: Speci men Type: BLOOD SPECIMENOrdering Facility: [facility] Address: [address] [place] [address] Performed By: #### 5 8410-2 ####[facility] [id number] [place] [address] [place] MCV (RBC) [Entitic vol] 88.7 fL Normal 80.0-100.0 [facility] Comment on above: Order Comment: Speci men Type: BLOOD SPECIMENOrdering Facility: [facility] Address: [address] [place] [address] Performed By: #### 5 8410-2 ####[facility]IA [id number] [place] [address] [place] Nucleated RBC (Bld) [#/Vol] 10*3/uL Normal <0.01 [facility] Comment on above: Order Comment: Speci men Type: BLOOD SPECIMENOrdering Facility: [facility] Address: [address] [place] [address] Performed By: #### 5 8410-2 ####[facility] [id number] [place] [address] [place] Platelet mean volume (Bld) [Entitic vol] 13.2 fL High 9.0-12.7 [facility] Comment on above: Order Comment: Speci men Type: BLOOD SPECIMENOrdering Facility: [facility] Address: [address] [place] [address] Performed By: #### 5 8410-2 ####[facility] [id number] [place] [address] [place] Platelets (Bld) [#/Vol] 129 10*3/uL Low 150-400 [facility] Comment on above: Order Comment: Speci men Type: BLOOD SPECIMENOrdering Facility: [facility] Address: [address] [place] [address] Performed By: #### 5 8410-2 ####[facility] [id number] [place] [address] [place] RBC (Bld) [#/Vol] 3.63 10*6/uL Low 3.90-5.20 [facility] Comment on above: Order Comment: Speci men Type: BLOOD SPECIMENOrdering Facility: [facility] Address: [address] [place] [address] Performed By: #### 5 8410-2 ####[facility] [id number] [place] [address] [place] WBC (Bld) [#/Vol] 16.07 10*3/uL High 3.70-11.00 [facility] Comment on above: Order Comment: Speci men Type: BLOOD SPECIMENOrdering Facility: [facility] Address: [address] [place] [address] Performed By: #### 5 8410-2 ####[facility]CL[facility] [id number] [place] [address] [place] Erythrocyte distribution width (RBC) [Ratio] 14.3 % Normal 11.5-15.0 [facility] Comment on above: Order Comment: Speci men Type: BLOOD SPECIMENOrdering Facility: [facility] Address: [address] [place] [address] Performed By: #### 5 8410-2 ####[facility]CL[facility] [id number] [place] [address] [place] Hematocrit (Bld) [Volume fraction] 31.2 % Low 36.0-46.0 [facility] Comment on above: Order Comment: Speci men Type: BLOOD SPECIMENOrdering Facility: [facility] Address: [address] [place] [address] Performed By: #### 5 8410-2 ####[facility]CL[facility] [id number] [place] [address] [place] Hemoglobin (Bld) [Mass/Vol] 10.0 g/dL Low 11.5-15.5 [facility] Comment on above: Order Comment: Speci men Type: BLOOD SPECIMENOrdering Facility: [facility] Address: [address] [place] [address] Performed By: #### 5 8410-2 ####[facility] [id number] [place] [address] [place] MCH (RBC) [Entitic mass] 29.5 pg Normal 26.0-34.0 [facility] Comment on above: Order Comment: Speci men Type: BLOOD SPECIMENOrdering Facility: [facility] Address: [address] [place] [address] Performed By: #### 5 8410-2 ####[facility] [id number] [place] [address] [place] MCHC (RBC) [Mass/Vol] 32.1 g/dL Normal 30.5-36.0 [facility] Comment on above: Order Comment: Speci men Type: BLOOD SPECIMENOrdering Facility: [facility] Address: [address] [place] [address] Performed By: #### 5 8410-2 ####[facility] [id number] [place] [address] [place] MCV (RBC) [Entitic vol] 92.0 fL Normal 80.0-100.0 [facility] Comment on above: Order Comment: Speci men Type: BLOOD SPECIMENOrdering Facility: [facility] Address: [address] [place] [address] Performed By: #### 5 8410-2 ####[facility] [id number] [place] [address] [place] Nucleated RBC (Bld) [#/Vol] 10*3/uL Normal <0.01 [facility] Comment on above: Order Comment: Speci men Type: BLOOD SPECIMENOrdering Facility: [facility] Address: [address] [place] [address] Performed By: #### 5 8410-2 ####[facility]CL[facility] [id number] [address] [address] [place] Platelet mean volume (Bld) [Entitic vol] 13.3 fL High 9.0-12.7 [facility] Comment on above: Order Comment: Speci men Type: BLOOD SPECIMENOrdering Facility: [facility] Address: [address] [place] [address] Performed By: #### 5 8410-2 ####[facility]CL[facility] [id number] [place] [address] [place] Platelets (Bld) [#/Vol] 101 10*3/uL Low 150-400 [facility] Comment on above: Order Comment: Speci men Type: BLOOD SPECIMENOrdering Facility: [facility] Address: [address] [place] [address] Performed By: #### 5 8410-2 ####[facility] [id number] [place] [address] [place] RBC (Bld) [#/Vol] 3.39 10*6/uL Low 3.90-5.20 [facility] Comment on above: Order Comment: Speci men Type: BLOOD SPECIMENOrdering Facility: [facility] Address: [address] [place] [address] Performed By: #### 5 8410-2 ####[facility] LABIA [id number] [place] [address] [place] WBC (Bld) [#/Vol] 14.81 10*3/uL High 3.70-11.00 [facility] Comment on above: Order Comment: Speci men Type: BLOOD SPECIMENOrdering Facility: [facility] Address: [address] [place] [address] Performed By: #### 5 8410-2 ####[facility] LABIA [id number] [place] [id number] [place] Comprehensive metabolic 2000 panelon 03-26-2024 Albumin [Mass/Vol] 3.8 g/dL Low 3.9-4.9 [facility] Comment on above: Order Comment: Speci men Type: BLOOD SPECIMENOrdering Facility: [facility] Address: [address] [place] [address] Performed By: #### 2 4323-8, 25645-5, 2776- ####[facility]CL[facility] [id number] [place] [address] [place] ALP [Catalytic activity/Vol] 95 U/L Normal 34-123 [facility] Comment on above: Order Comment: Speci men Type: BLOOD SPECIMENOrdering Facility: [facility] Address: [address] [place] [address] Performed By: #### 2 4323-8, 41369-9, 2776- ####[facility]CL[facility] [id number] [place] [address] [place] ALT [Catalytic activity/Vol] 38 U/L Normal 7-38 [facility] Comment on above: Order Comment: Speci men Type: BLOOD SPECIMENOrdering Facility: [facility] Address: [address] [place] [address] Performed By: #### 2 4323-8, 51240-4, 2776- ####[facility]CL[facility] [id number] [place] [address] [place] Anion gap [Moles/Vol] 11 mmol/L Normal 8-15 [facility] Comment on above: Order Comment: Speci men Type: BLOOD SPECIMENOrdering Facility: [facility] Address: [address] [place] [address] Performed By: #### 2 4323-8, 73954-6, 2776- ####[facility] [id number] [place] [address] [place] AST [Catalytic activity/Vol] 77 U/L High 13-35 [facility] Comment on above: Order Comment: Speci men Type: BLOOD SPECIMENOrdering Facility: [facility] Address: [address] [place] [address] Performed By: #### 2 4323-8, , 2776-04 ####[facility]CL[facility] [id number] [place] [address] [place] Bilirubin [Mass/Vol] 0.6 mg/dL Normal 0.2-1.3 [facility] Comment on above: Order Comment: Speci men Type: BLOOD SPECIMENOrdering Facility: [facility] Address: [address] [place] [address] Performed By: #### 2 4323-8, , 2776-04 ####[facility]CL[facility] [id number] [place] [address] [place] Calcium [Mass/Vol] 9.2 mg/dL Normal 8.5-10.2 [facility] Comment on above: Order Comment: Speci men Type: BLOOD SPECIMENOrdering Facility: [facility] Address: [address] [place] [address] Performed By: #### 2 4323-8, , 2776-04 ####[facility]CL[facility] [id number] [place] [address] [place] Chloride [Moles/Vol] 99 mmol/L Normal 98-107 [facility] Comment on above: Order Comment: Speci men Type: BLOOD SPECIMENOrdering Facility: [facility] Address: [address] [place], [place] [address] Performed By: #### 2 4323-8, , 2776-04 ####[facility] [id number] [place] [id number] [place] CO2 [Moles/Vol] 24 mmol/L Normal 22-30 [facility] Comment on above: Order Comment: Speci men Type: BLOOD SPECIMENOrdering Facility: [facility] Address: [address] [place] [id number] Performed By: #### 2 4323-8, , 2776-04 ####[facility] [id number] [address] [address] [place] Creatinine [Mass/Vol] 0.83 mg/dL Normal 0.58-0.96 [facility] Comment on above: Order Comment: Speci men Type: BLOOD SPECIMENOrdering Facility: [facility] Address: [address] [place] [address] Performed By: #### 2 4323-8, , 2776-04 ####[facility] [id number] [place] [address] [place] Creatinine and Glomerular filtration rate.predicted panel (S/P/Bld) 71 mL/min/1.73m??? Normal >=60 [facility] Comment on above: Order Comment: Speci men Type: BLOOD SPECIMENOrdering Facility: [facility] Address: [address] [place] [address] Result Comment: Lexus mated Glomerular Filtration Rate (eGFR) is calculated using the 2020 CKD-EPI creatinine equation. This equation utilizes serum creatinine, sex, and age as parameters. The creatinine assay has traceable calibration to isotope dilution-mass spectrometry. Refer to KDIGO guidelines for clinical interpretation. In patients with unstable renal function, e.g. those with acute kidney injury, the eGFR may not accurately reflect actual GFR. Performed By: #### 2 4323-8, , 2776-04 ####[facility] [id number] [place] [id number] [place] Glucose [Mass/Vol] 170 mg/dL High 74-99 [facility] Comment on above: Order Comment: Speci men Type: BLOOD SPECIMENOrdering Facility: [facility] Address: [address] [place] [address] Result Comment: The [place] Diabetes Association (ADA) provides guidance for cutoff values for fasting glucose and random glucose. The ADA defines fasting as no caloric intake for at least 8 hours. Fasting plasma glucose results between 100 to 125 mg/dL indicate increased risk for diabetes (prediabetes).Fasting plasma glucose results greater than or equal to 126 mg/dL meet the criteria for diagnosis of diabetes. In the absence of unequivocal hyperglycemia, results should be confirmed by repeat testing. In a patient with classic symptoms of hyperglycemia or hyperglycemic crisis, random plasma glucose results greater than or equal to 200 mg/dL meet the criteria for diagnosis of diabetes.Reference: Standards of Medical Care in Diabetes 2016, [place] [employer]. Diabetes Care. 2016.39(Suppl 1). Performed By: #### 2 4323-8, , 2776-04 ####[facility] [id number] [place] [address] [place] Potassium [Moles/Vol] 3.9 mmol/L Normal 3.7-5.1 [facility] Comment on above: Order Comment: Speci men Type: BLOOD SPECIMENOrdering Facility: [facility] Address: [address] [place] [address] Performed By: #### 2 4323-8, , 2776-04 ####[facility] [id number] [place] [address] [place] Protein [Mass/Vol] 6.1 g/dL Low 6.3-8.0 [facility] Comment on above: Order Comment: Speci men Type: BLOOD SPECIMENOrdering Facility: [facility] Address: [address] [place] [address] Performed By: #### 2 4323-8, , 2776-04 ####[facility] [id number] [place] [address] [place] Sodium [Moles/Vol] 134 mmol/L Low 136-144 [facility] Comment on above: Order Comment: Speci men Type: BLOOD SPECIMENOrdering Facility: [facility] Address: [address] [place] [address] Performed By: #### 2 4323-8, 81588-2, 2777-1 ####[facility] [id number] [place] [address] [place] Urea nitrogen [Mass/Vol] 24 mg/dL High 7-21 [facility] Comment on above: Order Comment: Speci men Type: BLOOD SPECIMENOrdering Facility: [facility] Address: [address] [place] [address] Performed By: #### 2 4323-8, 95117-0, 2777-1 ####[facility] [id number] [place] [address] [place] Albumin [Mass/Vol] 3.4 g/dL Low 3.9-4.9 [facility] Comment on above: Order Comment: Speci men Type: BLOOD SPECIMENOrdering Facility: [facility] Address: [address] [place] [address] Performed By: #### 2 4323-8 ####[facility] [id number] [place] [address] [place] ALP [Catalytic activity/Vol] 80 U/L Normal 34-123 [facility] Comment on above: Order Comment: Speci men Type: BLOOD SPECIMENOrdering Facility: [facility] Address: [address] [place] [address] Performed By: #### 2 4323-8 ####[facility] [id number] [place] [id number] [place] ALT [Catalytic activity/Vol] 43 U/L High 7-38 [facility] Comment on above: Order Comment: Speci men Type: BLOOD SPECIMENOrdering Facility: [facility] Address: [address] [place] [address] Performed By: #### 2 4323-8 ####[facility] [id number] [place] [address] [place] Anion gap [Moles/Vol] 13 mmol/L Normal 8-15 [facility] Comment on above: Order Comment: Speci men Type: BLOOD SPECIMENOrdering Facility: [facility] Address: [address] [place] [address] Performed By: #### 2 4323-8 ####[facility] [id number] [place] [address] [place] AST [Catalytic activity/Vol] 100 U/L High 13-35 [facility] Comment on above: Order Comment: Speci men Type: BLOOD SPECIMENOrdering Facility: [facility] Address: [address] [place] [address] Performed By: #### 2 4323-8 ####[facility] [id number] [place] [address] [place] Bilirubin [Mass/Vol] 0.8 mg/dL Normal 0.2-1.3 [facility] Comment on above: Order Comment: Speci men Type: BLOOD SPECIMENOrdering Facility: [facility] Address: [address] [place] [address] Performed By: #### 2 4323-8 ####[facility] [id number] [place] [address] [place] Calcium [Mass/Vol] 9.1 mg/dL Normal 8.5-10.2 [facility] Comment on above: Order Comment: Speci men Type: BLOOD SPECIMENOrdering Facility: [facility] Address: [address] [place] [address] Performed By: #### 2 4323-8 ####[facility] [id number] [place] [address] [place] Chloride [Moles/Vol] 101 mmol/L Normal 98-107 [facility] Comment on above: Order Comment: Speci men Type: BLOOD SPECIMENOrdering Facility: [facility] Address: [address] [place] [address] Performed By: #### 2 4323-8 ####[facility] [id number] [place] [address] [place] CO2 [Moles/Vol] 21 mmol/L Low 22-30 [facility] Comment on above: Order Comment: Speci men Type: BLOOD SPECIMENOrdering Facility: [facility] Address: [address] [place] [address] Performed By: #### 2 4323-8 ####[facility] [id number] [place] [address] [place] Creatinine [Mass/Vol] 0.99 mg/dL High 0.58-0.96 [facility] Comment on above: Order Comment: Speci men Type: BLOOD SPECIMENOrdering Facility: [facility] Address: [address] [place] [address] Performed By: #### 2 4323-8 ####[facility] [id number] [place] [address] [place] Creatinine and Glomerular filtration rate.predicted panel (S/P/Bld) 58 mL/min/1.73m??? Low >=60 [facility] Comment on above: Order Comment: Speci men Type: BLOOD SPECIMENOrdering Facility: [facility] Address: [address] [place] [address] Result Comment: Lexus mated Glomerular Filtration Rate (eGFR) is calculated using the 2020 CKD-EPI creatinine equation. This equation utilizes serum creatinine, sex, and age as parameters. The creatinine assay has traceable calibration to isotope dilution-mass spectrometry. Refer to KDIGO guidelines for clinical interpretation. In patients with unstable renal function, e.g. those with acute kidney injury, the eGFR may not accurately reflect actual GFR. Performed By: #### 2 4323-8 ####[facility] [id number] [place] [address] [place] Glucose [Mass/Vol] 152 mg/dL High 74-99 [facility] Comment on above: Order Comment: Speci men Type: BLOOD SPECIMENOrdering Facility: [facility] Address: [address] [place] [address] Result Comment: The [place] Diabetes Association (ADA) provides guidance for cutoff values for fasting glucose and random glucose. The ADA defines fasting as no caloric intake for at least 8 hours. Fasting plasma glucose results between 100 to 125 mg/dL indicate increased risk for diabetes (prediabetes).Fasting plasma glucose results greater than or equal to 126 mg/dL meet the criteria for diagnosis of diabetes. In the absence of unequivocal hyperglycemia, results should be confirmed by repeat testing. In a patient with classic symptoms of hyperglycemia or hyperglycemic crisis, random plasma glucose results greater than or equal to 200 mg/dL meet the criteria for diagnosis of diabetes.Reference: Standards of Medical Care in Diabetes 2016, [place] [employer]. Diabetes Care. 2016.39(Suppl 1). Performed By: #### 2 4323-8 ####[facility] [id number] [place] [address] [place] Potassium [Moles/Vol] 3.7 mmol/L Normal 3.7-5.1 [facility] Comment on above: Order Comment: Speci men Type: BLOOD SPECIMENOrdering Facility: [facility] Address: [address] [place] [address] Performed By: #### 2 4323-8 ####[facility] [id number] [place] [address] [place] Protein [Mass/Vol] 5.7 g/dL Low 6.3-8.0 [facility] Comment on above: Order Comment: Speci men Type: BLOOD SPECIMENOrdering Facility: [facility] Address: [address] [place] [address] Performed By: #### 2 4323-8 ####[facility] [id number] [place] [address] [place] Sodium [Moles/Vol] 135 mmol/L Low 136-144 [facility] Comment on above: Order Comment: Speci men Type: BLOOD SPECIMENOrdering Facility: [facility] Address: [address] [place] [address] Performed By: #### 2 4323-8 ####[facility] [id number] [place] [id number] [place] Urea nitrogen [Mass/Vol] 23 mg/dL High 7-21 [facility] Comment on above: Order Comment: Speci men Type: BLOOD SPECIMENOrdering Facility: [facility] Address: [address] [place] [address] Performed By: #### 2 4323-8 ####[facility] [id number] [place] [address] [place] [id number] 03-26-2024 ECG01 Normal [facility] ECG01 Normal [facility] ECHO LIMITEDon 03-26-2024 ECHO LIMITED Normal [facility] Magnesium SerPl-mCncon 03-26 Magnesium [Mass/Vol] 2.1 mg/dL Normal 1.7-2.3 [facility] Comment on above: Order Comment: Speci men Type: BLOOD SPECIMENOrdering Facility: [facility] Address: [address] [place] [address] Performed By: #### 2 4323-8, , 2776-04 ####[facility] [id number] [place] [address] [place] NURSING PROGon 03-26-2024 NURSING PROG Normal [facility] Phosphate SerPl-mCncon 03-26 Phosphate [Mass/Vol] 2.0 mg/dL Low 2.7-4.8 [facility] Comment on above: Order Comment: Speci men Type: BLOOD SPECIMENOrdering Facility: [facility] Address: [address] [place] [address] Performed By: #### 2 4323-8, 86561-3, 2777-1 ####[facility] [id number] [place] [address] [place] THERAPY NTon 03-26-2024 THERAPY NT Normal [facility] THERAPY NT Normal [facility] THERAPY NT Normal [facility] XR CHEST 2V FRONTAL/LATon XR CHEST 2V FRONTAL/LAT Normal [facility] ARTERIAL BLOOD GASESon 03-25 Base deficit (BldA) [Moles/Vol] -1 mmol/L Normal -2-0 [facility] Comment on above: Order Comment: Speci men Type: ARTERIAL BLOOD SPECIMENOrdering Facility: [facility] Address: [address] [place] [address] Performed By: #### A LLBG ####[facility] [id number] [place] [address] [place] Body temperature 98.6 [degF] Normal [facility] Comment on above: Order Comment: Speci men Type: ARTERIAL BLOOD SPECIMENOrdering Facility: [facility] Address: [address] [place] [address] Performed By: #### A LLBG ####[facility] [id number] [place] [address] [place] Calcium.ionized (Bld) [Mass/Vol] 1.22 mmol/L Normal 1.08-1.30 [facility] Comment on above: Order Comment: Speci men Type: ARTERIAL BLOOD SPECIMENOrdering Facility: [facility] Address: [address] [place] [address] Performed By: #### A LLBG ####[facility] [id number] [place] [address] [place] Calcium.ionized adjusted to pH 7.4 (BldA) [Moles/Vol] 1.21 mmol/L Normal 1.08-1.30 [facility] Comment on above: Order Comment: Speci men Type: ARTERIAL BLOOD SPECIMENOrdering Facility: [facility] Address: [address] [place] [address] Performed By: #### A LLBG ####[facility] [id number] [place] [address] [place] Carboxyhemoglobin (BldA) [Mass fraction] 1.3 % Normal 0.0-2.0 [facility] Comment on above: Order Comment: Speci men Type: ARTERIAL BLOOD SPECIMENOrdering Facility: [facility] Address: [address] [place] [address] Result Comment: Carb oxyhemoglobin Reference Range for Smokers: 2.0-8.0% Performed By: #### A LLBG ####[facility] [id number] [place] [address] [place] CO2 (Bld) [Partial pressure] 40 mm Hg Normal 36-46 [facility] Comment on above: Order Comment: Speci men Type: ARTERIAL BLOOD SPECIMENOrdering Facility: [facility] Address: [address] [place] [address] Performed By: #### A LLBG ####[facility] [id number] [place] [address] [place] Glucose [Mass/Vol] 157 mg/dL High 60-105 [facility] Comment on above: Order Comment: Speci men Type: ARTERIAL BLOOD SPECIMENOrdering Facility: [facility] Address: [address] [place] [address] Performed By: #### A LLBG ####[facility] [id number] [place] [address] [place] HCO3 (Bld) [Moles/Vol] 23 mmol/L Normal 22-26 [facility] Comment on above: Order Comment: Speci men Type: ARTERIAL BLOOD SPECIMENOrdering Facility: [facility] Address: [address] [place] [address] Performed By: #### A LLBG ####[facility] [id number] [place] [address] [place] Hematocrit (Bld) [Volume fraction] 32.4 % Low 36.0-46.0 [facility] Comment on above: Order Comment: Speci men Type: ARTERIAL BLOOD SPECIMENOrdering Facility: [facility] Address: [address] [place] [address] Performed By: #### A LLBG ####[facility] [id number] [place] [address] [place] Hemoglobin (Bld) [Mass/Vol] 10.5 g/dL Low 11.5-15.5 [facility] Comment on above: Order Comment: Speci men Type: ARTERIAL BLOOD SPECIMENOrdering Facility: [facility] Address: [address] [place] [address] Performed By: #### A LLBG ####[facility] [id number] [place] [address] [place] Lactate [Moles/Vol] 2.1 mmol/L Normal 0.5-2.2 [facility] Comment on above: Order Comment: Speci men Type: ARTERIAL BLOOD SPECIMENOrdering Facility: [facility] Address: [address] [place] [address] Performed By: #### A LLBG ####[facility] [id number] [place] [address] [place] LITERS 2 Liters/min Normal [facility] Comment on above: Order Comment: Speci men Type: ARTERIAL BLOOD SPECIMENOrdering Facility: [facility] Address: [address] [place] [address] Performed By: #### A LLBG ####[facility] [id number] [place] [address] [place] Methemoglobin (Bld) [Mass fraction] 1.2 % Normal 0.0-1.5 [facility] Comment on above: Order Comment: Speci men Type: ARTERIAL BLOOD SPECIMENOrdering Facility: [facility] Address: [address] [place] [address] Performed By: #### A LLBG ####[facility] [id number] [place] [address] [place] O2 THERAPY NC = Nasal Cannula Normal [facility] Comment on above: Order Comment: Speci men Type: ARTERIAL BLOOD SPECIMENOrdering Facility: [facility] Address: [address] [place] [address] Performed By: #### A LLBG ####[facility] [id number] [place] [address] [place] Oxygen (Bld) [Partial pressure] 131 mm Hg High 85-95 [facility] Comment on above: Order Comment: Speci men Type: ARTERIAL BLOOD SPECIMENOrdering Facility: [facility] Address: [address] [place] [address] Performed By: #### A LLBG ####[facility] [id number] [place] [address] [place] Oxyhemoglobin (BldA) [Mass fraction] 97 % Normal 95-98 [facility] Comment on above: Order Comment: Speci men Type: ARTERIAL BLOOD SPECIMENOrdering Facility: [facility] Address: [address] [place] [address] Performed By: #### A LLBG ####[facility] [id number] [place] [address] [place] pH (Bld) 7.38 [pH] Normal 7.35-7.45 [facility] Comment on above: Order Comment: Speci men Type: ARTERIAL BLOOD SPECIMENOrdering Facility: [facility] Address: [address] [place] [address] Performed By: #### A LLBG ####[facility] [id number] [place] [address] [place] Potassium [Moles/Vol] 4.6 mmol/L Normal 3.5-5.0 [facility] Comment on above: Order Comment: Speci men Type: ARTERIAL BLOOD SPECIMENOrdering Facility: [facility] Address: [address] [place] [address] Performed By: #### A LLBG ####[facility] [id number] [place] [address] [place] Sodium [Moles/Vol] 137 mmol/L Normal 136-144 [facility] Comment on above: Order Comment: Speci men Type: ARTERIAL BLOOD SPECIMENOrdering Facility: [facility] Address: [address] [place] [address] Performed By: #### A LLBG ####[facility] [id number] [place] [address] [place] Base deficit (BldA) [Moles/Vol] -1 mmol/L Normal -2-0 [facility] Comment on above: Order Comment: Speci men Type: ARTERIAL BLOOD SPECIMENOrdering Facility: [facility] Address: [address] [place] [address] Performed By: #### A LLBG ####[facility] [id number] [place] [address] [place] Body temperature 98.6 [degF] Normal [facility] Comment on above: Order Comment: Speci men Type: ARTERIAL BLOOD SPECIMENOrdering Facility: [facility] Address: [address] [place] [address] Performed By: #### A LLBG ####[facility] [id number] [place] [address] [place] Calcium.ionized (Bld) [Mass/Vol] 1.23 mmol/L Normal 1.08-1.30 [facility] Comment on above: Order Comment: Speci men Type: ARTERIAL BLOOD SPECIMENOrdering Facility: [facility] Address: [address] [place] [address] Performed By: #### A LLBG ####[facility] [id number] [place] [address] [place] Calcium.ionized adjusted to pH 7.4 (BldA) [Moles/Vol] 1.22 mmol/L Normal 1.08-1.30 [facility] Comment on above: Order Comment: Speci men Type: ARTERIAL BLOOD SPECIMENOrdering Facility: [facility] Address: [address] [place] [address] Performed By: #### A LLBG ####[facility] [id number] [place] [address] [place] Carboxyhemoglobin (BldA) [Mass fraction] 1.0 % Normal 0.0-2.0 [facility] Comment on above: Order Comment: Speci men Type: ARTERIAL BLOOD SPECIMENOrdering Facility: [facility] Address: [address] [place] [address] Result Comment: Carb oxyhemoglobin Reference Range for Smokers: 2.0-8.0% Performed By: #### A LLBG ####[facility] [id number] [place] [address] [place] CO2 (Bld) [Partial pressure] 39 mm Hg Normal 36-46 [facility] Comment on above: Order Comment: Speci men Type: ARTERIAL BLOOD SPECIMENOrdering Facility: [facility] Address: [address] [place] [address] Performed By: #### A LLBG ####[facility] [id number] [place] [address] [place] Glucose [Mass/Vol] 157 mg/dL High 60-105 [facility] Comment on above: Order Comment: Speci men Type: ARTERIAL BLOOD SPECIMENOrdering Facility: [facility] Address: [address] [place] [address] Performed By: #### A LLBG ####[facility] [id number] [place] [address] [place] HCO3 (Bld) [Moles/Vol] 23 mmol/L Normal 22-26 [facility] Comment on above: Order Comment: Speci men Type: ARTERIAL BLOOD SPECIMENOrdering Facility: [facility] Address: [address] [place] [address] Performed By: #### A LLBG ####[facility] [id number] [place] [address] [place] Hematocrit (Bld) [Volume fraction] 31.6 % Low 36.0-46.0 [facility] Comment on above: Order Comment: Speci men Type: ARTERIAL BLOOD SPECIMENOrdering Facility: [facility] Address: [address] [place] [address] Performed By: #### A LLBG ####[facility] [id number] [place] [address] [place] Hemoglobin (Bld) [Mass/Vol] 10.2 g/dL Low 11.5-15.5 [facility] Comment on above: Order Comment: Speci men Type: ARTERIAL BLOOD SPECIMENOrdering Facility: [facility] Address: [address] [place] [address] Performed By: #### A LLBG ####[facility] [id number] [place] [address] [place] Lactate [Moles/Vol] 2.8 mmol/L High 0.5-2.2 [facility] Comment on above: Order Comment: Speci men Type: ARTERIAL BLOOD SPECIMENOrdering Facility: [facility] Address: [address] [place] [address] Performed By: #### A LLBG ####[facility] [id number] [place] [address] [place] LITERS 4 Liters/min Normal [facility] Comment on above: Order Comment: Speci men Type: ARTERIAL BLOOD SPECIMENOrdering Facility: [facility] Address: [address] [place] [address] Performed By: #### A LLBG ####[facility] [id number] [place] [address] [place] Methemoglobin (Bld) [Mass fraction] 0.6 % Normal 0.0-1.5 [facility] Comment on above: Order Comment: Speci men Type: ARTERIAL BLOOD SPECIMENOrdering Facility: [facility] Address: [address] [place] [address] Performed By: #### A LLBG ####[facility] [id number] [place] [address] [place] O2 THERAPY NC = Nasal Cannula Normal [facility] Comment on above: Order Comment: Speci men Type: ARTERIAL BLOOD SPECIMENOrdering Facility: [facility] Address: [address] [place] [address] Performed By: #### A LLBG ####[facility] [id number] [place] [address] [place] Oxygen (Bld) [Partial pressure] 165 mm Hg High 85-95 [facility] Comment on above: Order Comment: Speci men Type: ARTERIAL BLOOD SPECIMENOrdering Facility: [facility] Address: [address] [place] [address] Performed By: #### A LLBG ####[facility] [id number] [place] [address] [place] Oxyhemoglobin (BldA) [Mass fraction] 98 % Normal 95-98 [facility] Comment on above: Order Comment: Speci men Type: ARTERIAL BLOOD SPECIMENOrdering Facility: [facility] Address: [address] [place] [address] Performed By: #### A LLBG ####[facility] [id number] [place] [address] [place] pH (Bld) 7.38 [pH] Normal 7.35-7.45 [facility] Comment on above: Order Comment: Speci men Type: ARTERIAL BLOOD SPECIMENOrdering Facility: [facility] Address: [address] [place] [address] Performed By: #### A LLBG ####[facility] [id number] [place] [address] [place] Potassium [Moles/Vol] 4.5 mmol/L Normal 3.5-5.0 [facility] Comment on above: Order Comment: Speci men Type: ARTERIAL BLOOD SPECIMENOrdering Facility: [facility] Address: [address] [place] [address] Performed By: #### A LLBG ####[facility] [id number] [place] [address] [place] Sodium [Moles/Vol] 138 mmol/L Normal 136-144 [facility] Comment on above: Order Comment: Speci men Type: ARTERIAL BLOOD SPECIMENOrdering Facility: [facility] Address: [address] [place] [address] Performed By: #### A LLBG ####[facility] [id number] [place] [address] [place] Base excess Calc (Bld) [Moles/Vol] 1 mmol/L Normal 0-2 [facility] Comment on above: Order Comment: Speci men Type: ARTERIAL BLOOD SPECIMENOrdering Facility: [facility] Address: [address] [place] [address] Performed By: #### A LLBG ####[facility] [id number] [place] [address] [place] Body temperature 98.6 [degF] Normal [facility] Comment on above: Order Comment: Speci men Type: ARTERIAL BLOOD SPECIMENOrdering Facility: [facility] Address: [address] [place] [address] Performed By: #### A LLBG ####[facility] [id number] [place] [address] [place] Calcium.ionized (Bld) [Mass/Vol] 1.17 mmol/L Normal 1.08-1.30 [facility] Comment on above: Order Comment: Speci men Type: ARTERIAL BLOOD SPECIMENOrdering Facility: [facility] Address: [address] [place] [address] Performed By: #### A LLBG ####[facility] [id number] [place] [address] [place] Calcium.ionized adjusted to pH 7.4 (BldA) [Moles/Vol] 1.16 mmol/L Normal 1.08-1.30 [facility] Comment on above: Order Comment: Speci men Type: ARTERIAL BLOOD SPECIMENOrdering Facility: [facility] Address: [address] [place] [address] Performed By: #### A LLBG ####[facility] [id number] [place] [address] [place] Carboxyhemoglobin (BldA) [Mass fraction] 1.4 % Normal 0.0-2.0 [facility] Comment on above: Order Comment: Speci men Type: ARTERIAL BLOOD SPECIMENOrdering Facility: [facility] Address: [address] [place] [address] Result Comment: Carb oxyhemoglobin Reference Range for Smokers: 2.0-8.0% Performed By: #### A LLBG ####[facility] [id number] [place] [address] [place] CO2 (Bld) [Partial pressure] 43 mm Hg Normal 36-46 [facility] Comment on above: Order Comment: Speci men Type: ARTERIAL BLOOD SPECIMENOrdering Facility: [facility] Address: [address] [place] [address] Performed By: #### A LLBG ####[facility] [id number] [place] [address] [place] Glucose [Mass/Vol] 152 mg/dL High 60-105 [facility] Comment on above: Order Comment: Speci men Type: ARTERIAL BLOOD SPECIMENOrdering Facility: [facility] Address: [address] [place] [address] Performed By: #### A LLBG ####[facility] [id number] [place] [address] [place] HCO3 (Bld) [Moles/Vol] 26 mmol/L Normal 22-26 [facility] Comment on above: Order Comment: Speci men Type: ARTERIAL BLOOD SPECIMENOrdering Facility: [facility] Address: [address] [place] [address] Performed By: #### A LLBG ####[facility] [id number] [place] [address] [place] Hematocrit (Bld) [Volume fraction] 30.1 % Low 36.0-46.0 [facility] Comment on above: Order Comment: Speci men Type: ARTERIAL BLOOD SPECIMENOrdering Facility: [facility] Address: [address] [place] [address] Performed By: #### A LLBG ####[facility] [id number] [place] [address] [place] Hemoglobin (Bld) [Mass/Vol] 9.7 g/dL Low 11.5-15.5 [facility] Comment on above: Order Comment: Speci men Type: ARTERIAL BLOOD SPECIMENOrdering Facility: [facility] Address: [address] [place] [address] Performed By: #### A LLBG ####[facility] [id number] [place] [address] [place] Lactate [Moles/Vol] 1.0 mmol/L Normal 0.5-2.2 [facility] Comment on above: Order Comment: Speci men Type: ARTERIAL BLOOD SPECIMENOrdering Facility: [facility] Address: [address] [place] [address] Performed By: #### A LLBG ####[facility] [id number] [place] [address] [place] LITERS 4 Liters/min Normal [facility] Comment on above: Order Comment: Speci men Type: ARTERIAL BLOOD SPECIMENOrdering Facility: [facility] Address: [address] [place] [address] Performed By: #### A LLBG ####[facility] [id number] [place] [address] [place] Methemoglobin (Bld) [Mass fraction] 0.7 % Normal 0.0-1.5 [facility] Comment on above: Order Comment: Speci men Type: ARTERIAL BLOOD SPECIMENOrdering Facility: [facility] Address: [address] [place] [address] Performed By: #### A LLBG ####[facility] [id number] [place] [address] [place] O2 THERAPY NC = Nasal Cannula Normal [facility] Comment on above: Order Comment: Speci men Type: ARTERIAL BLOOD SPECIMENOrdering Facility: [facility] Address: [address] [place] [address] Performed By: #### A LLBG ####[facility] [id number] [place] [address] [place] Oxygen (Bld) [Partial pressure] 118 mm Hg High 85-95 [facility] Comment on above: Order Comment: Speci men Type: ARTERIAL BLOOD SPECIMENOrdering Facility: [facility] Address: [address] [place] [address] Performed By: #### A LLBG ####[facility] [id number] [place] [address] [place] Oxyhemoglobin (BldA) [Mass fraction] 97 % Normal 95-98 [facility] Comment on above: Order Comment: Speci men Type: ARTERIAL BLOOD SPECIMENOrdering Facility: [facility] Address: [address] [place] [address] Performed By: #### A LLBG ####[facility] [id number] [place] [address] [place] pH (Bld) 7.39 [pH] Normal 7.35-7.45 [facility] Comment on above: Order Comment: Speci men Type: ARTERIAL BLOOD SPECIMENOrdering Facility: [facility] Address: [address] [place] [address] Performed By: #### A LLBG ####[facility] [id number] [place] [address] [place] Potassium [Moles/Vol] 4.2 mmol/L Normal 3.5-5.0 [facility] Comment on above: Order Comment: Speci men Type: ARTERIAL BLOOD SPECIMENOrdering Facility: [facility] Address: [address] [place] [address] Performed By: #### A LLBG ####[facility] [id number] [place] [address] [place] Sodium [Moles/Vol] 137 mmol/L Normal 136-144 [facility] Comment on above: Order Comment: Speci men Type: ARTERIAL BLOOD SPECIMENOrdering Facility: [facility] Address: [address] [place] [address] Performed By: #### A LLBG ####[facility] [id number] [place] [id number] [place] CASE MANAGEMon 03-25-2024 CASE MANAGEM Normal [facility] CBC panel Auto (Bld)on 03-25 Erythrocyte distribution width (RBC) [Ratio] 14.0 % Normal 11.5-15.0 [facility] Comment on above: Order Comment: Speci men Type: BLOOD SPECIMENOrdering Facility: [facility] Address: [address] [place] [address] Performed By: #### 5 8410-2 ####[facility] [id number] [place] [address] [place] Hematocrit (Bld) [Volume fraction] 30.4 % Low 36.0-46.0 [facility] Comment on above: Order Comment: Speci men Type: BLOOD SPECIMENOrdering Facility: [facility] Address: [address] [place] [address] Performed By: #### 5 8410-2 ####[facility] [id number] [place] [address] [place] Hemoglobin (Bld) [Mass/Vol] 9.9 g/dL Low 11.5-15.5 [facility] Comment on above: Order Comment: Speci men Type: BLOOD SPECIMENOrdering Facility: [facility] Address: [address] [place] [address] Performed By: #### 5 8410-2 ####[facility] [id number] [place] [address] [place] MCH (RBC) [Entitic mass] 29.1 pg Normal 26.0-34.0 [facility] Comment on above: Order Comment: Speci men Type: BLOOD SPECIMENOrdering Facility: [facility] Address: [address] [place] [address] Performed By: #### 5 8410-2 ####[facility] [id number] [place] [address] [place] MCHC (RBC) [Mass/Vol] 32.6 g/dL Normal 30.5-36.0 [facility] Comment on above: Order Comment: Speci men Type: BLOOD SPECIMENOrdering Facility: [facility] Address: [address] [place] [address] Performed By: #### 5 8410-2 ####[facility] [id number] [place] [address] [place] MCV (RBC) [Entitic vol] 89.4 fL Normal 80.0-100.0 [facility] Comment on above: Order Comment: Speci men Type: BLOOD SPECIMENOrdering Facility: [facility] Address: [address] [place] [address] Performed By: #### 5 8410-2 ####[facility] [id number] [place] [address] [place] Nucleated RBC (Bld) [#/Vol] 10*3/uL Normal <0.01 [facility] Comment on above: Order Comment: Speci men Type: BLOOD SPECIMENOrdering Facility: [facility] Address: [address] [place] [address] Performed By: #### 5 8410-2 ####[facility] [id number] [place] [address] [place] Platelet mean volume (Bld) [Entitic vol] 12.8 fL High 9.0-12.7 [facility] Comment on above: Order Comment: Speci men Type: BLOOD SPECIMENOrdering Facility: [facility] Address: [address] [place] [address] Performed By: #### 5 8410-2 ####[facility] [id number] [place] [address] [place] Platelets (Bld) [#/Vol] 89 10*3/uL Low 150-400 [facility] Comment on above: Order Comment: Speci men Type: BLOOD SPECIMENOrdering Facility: [facility] Address: [address] [place] [address] Result Comment: No c lot detected. Performed By: #### 5 8410-2 ####[facility] [id number] [place] [id number] [address] [place] RBC (Bld) [#/Vol] 3.40 10*6/uL Low 3.90-5.20 [facility] Comment on above: Order Comment: Speci men Type: BLOOD SPECIMENOrdering Facility: [facility] Address: [address] [place] [address] Performed By: #### 5 8410-2 ####[facility] [id number] [place] [address] [place] WBC (Bld) [#/Vol] 11.48 10*3/uL High 3.70-11.00 [facility] Comment on above: Order Comment: Speci men Type: BLOOD SPECIMENOrdering Facility: [facility] Address: [address] [place] [address] Performed By: #### 5 8410-2 ####[facility] [id number] [place] [address] [place] Comprehensive metabolic 2000 panelon 03-25-2024 Albumin [Mass/Vol] 3.7 g/dL Low 3.9-4.9 [facility] Comment on above: Order Comment: Speci men Type: BLOOD SPECIMENOrdering Facility: [facility] Address: [address] [place] [address] Performed By: #### 2 4323-8, HSTNT ####[facility] [id number] [place] [address] [place] ALP [Catalytic activity/Vol] 48 U/L Normal 34-123 [facility] Comment on above: Order Comment: Speci men Type: BLOOD SPECIMENOrdering Facility: [facility] Address: [address] [place] [address] Performed By: #### 2 4323-8, HSTNT ####[facility] [id number] [place] [id number] [place] ALT [Catalytic activity/Vol] 85 U/L High 7-38 [facility] Comment on above: Order Comment: Speci men Type: BLOOD SPECIMENOrdering Facility: [facility] Address: [address] [place] [id number] Performed By: #### 2 4323-8, HSTNT ####[facility] [id number] [address] [address] [place] Anion gap [Moles/Vol] 16 mmol/L High 8-15 [facility] Comment on above: Order Comment: Speci men Type: BLOOD SPECIMENOrdering Facility: [facility] Address: [address] [place] [address] Performed By: #### 2 4323-8, HSTNT ####[facility] [id number] [place] [address] [place] AST [Catalytic activity/Vol] 288 U/L High 13-35 [facility] Comment on above: Order Comment: Speci men Type: BLOOD SPECIMENOrdering Facility: [facility] Address: [address] [place] [address] Performed By: #### 2 4323-8, HSTNT ####[facility] [id number] [place] [address] [place] Bilirubin [Mass/Vol] 1.2 mg/dL Normal 0.2-1.3 [facility] Comment on above: Order Comment: Speci men Type: BLOOD SPECIMENOrdering Facility: [facility] Address: [address] [place] [address] Performed By: #### 2 4323-8, HSTNT ####[facility] [id number] [place] [address] [place] Calcium [Mass/Vol] 8.2 mg/dL Low 8.5-10.2 [facility] Comment on above: Order Comment: Speci men Type: BLOOD SPECIMENOrdering Facility: [facility] Address: [address] [place] [address] Performed By: #### 2 4323-8, HSTNT ####[facility] [id number] [place] [id number] [place] Chloride [Moles/Vol] 106 mmol/L Normal 98-107 [facility] Comment on above: Order Comment: Speci men Type: BLOOD SPECIMENOrdering Facility: [facility] Address: [address] [place] [address] Performed By: #### 2 4323-8, HSTNT ####[facility] [id number] [place] [address] [place] CO2 [Moles/Vol] 19 mmol/L Low 22-30 [facility] Comment on above: Order Comment: Speci men Type: BLOOD SPECIMENOrdering Facility: [facility] Address: [address] [place] [address] Performed By: #### 2 4323-8, HSTNT ####[facility] [id number] [place] [address] [place] Creatinine [Mass/Vol] 1.01 mg/dL High 0.58-0.96 [facility] Comment on above: Order Comment: Speci men Type: BLOOD SPECIMENOrdering Facility: [facility] Address: [address] [place] [address] Performed By: #### 2 4323-8, HSTNT ####[facility] [id number] [place] [address] [place] Creatinine and Glomerular filtration rate.predicted panel (S/P/Bld) 56 mL/min/1.73m??? Low >=60 [facility] Comment on above: Order Comment: Speci men Type: BLOOD SPECIMENOrdering Facility: [facility] Address: [address] [place] [address] Result Comment: Lexus mated Glomerular Filtration Rate (eGFR) is calculated using the 2020 CKD-EPI creatinine equation. This equation utilizes serum creatinine, sex, and age as parameters. The creatinine assay has traceable calibration to isotope dilution-mass spectrometry. Refer to KDIGO guidelines for clinical interpretation. In patients with unstable renal function, e.g. those with acute kidney injury, the eGFR may not accurately reflect actual GFR. Performed By: #### 2 4323-8, HSTNT ####[facility] [id number] [place] [address] [place] Glucose [Mass/Vol] 162 mg/dL High 74-99 [facility] Comment on above: Order Comment: Speci men Type: BLOOD SPECIMENOrdering Facility: [facility] Address: [address] [place] [address] Result Comment: The [place] Diabetes [employer] (ADA) provides guidance for cutoff values for fasting glucose and random glucose. The ADA defines fasting as no caloric intake for at least 8 hours. Fasting plasma glucose results between 100 to 125 mg/dL indicate increased risk for diabetes (prediabetes).Fasting plasma glucose results greater than or equal to 126 mg/dL meet the criteria for diagnosis of diabetes. In the absence of unequivocal hyperglycemia, results should be confirmed by repeat testing. In a patient with classic symptoms of hyperglycemia or hyperglycemic crisis, random plasma glucose results greater than or equal to 200 mg/dL meet the criteria for diagnosis of diabetes.Reference: Standards of Medical Care in Diabetes 2016, [place] [employer]. Diabetes Care. 2016.39(Suppl 1). Performed By: #### 2 4323-8, HSTNT ####[facility] [id number] [place] [id number] [place] Potassium [Moles/Vol] 4.6 mmol/L Normal 3.7-5.1 [facility] Comment on above: Order Comment: Speci men Type: BLOOD SPECIMENOrdering Facility: [facility] Address: [address] [place] [address] Performed By: #### 2 4323-8, HSTNT ####[facility] [id number] [address] [address] [place] Protein [Mass/Vol] 5.2 g/dL Low 6.3-8.0 [facility] Comment on above: Order Comment: Speci men Type: BLOOD SPECIMENOrdering Facility: [facility] Address: [address] [place] [address] Performed By: #### 2 4323-8, HSTNT ####[facility] [id number] [place] [address] [place] Sodium [Moles/Vol] 141 mmol/L Normal 136-144 [facility] Comment on above: Order Comment: Speci men Type: BLOOD SPECIMENOrdering Facility: [facility] Address: [address] [place] [address] Performed By: #### 2 4323-8, HSTNT ####[facility] [id number] [place] [address] [place] Urea nitrogen [Mass/Vol] 18 mg/dL Normal 7-21 [facility] Comment on above: Order Comment: Speci men Type: BLOOD SPECIMENOrdering Facility: [facility] Address: [address] [place] [address] Performed By: #### 2 4323-8, HSTNT ####[facility] [id number] [place] [address] [place] HIGH SENSITIVITY TROPONIN To n 03-25-2024 Troponin T.cardiac High sensitivity method [Mass/Vol] 1198 ng/L High <12 [facility] Comment on above: Order Comment: Speci men Type: BLOOD SPECIMENOrdering Facility: [facility] Address: [address] [place] [address] Performed By: #### 2 4323-8, HSTNT ####[facility] [id number] [place] [address] [place] XR CHEST 1V FRONTAL PORTon 1 05-26-2023 XR CHEST 1V FRONTAL PORT Normal [facility] ANES POSTPROC EVALon 024 ANES POSTPROC EVAL Normal [facility] ANES PRE-OPon 03-24-2024 ANES PRE-OP Normal [facility] ARTERIAL BLOOD GASESon 03-24 Base deficit (BldA) [Moles/Vol] -1 mmol/L Normal -2-0 [facility] Comment on above: Order Comment: Speci men Type: ARTERIAL BLOOD SPECIMENOrdering Facility: [facility] Address: [address] [place] [address] Performed By: #### A LLBG ####[facility] [id number] [place] [address] [place] Body temperature 98.6 [degF] Normal [facility] Comment on above: Order Comment: Speci men Type: ARTERIAL BLOOD SPECIMENOrdering Facility: [facility] Address: [address] [place] [address] Performed By: #### A LLBG ####[facility] [id number] [place] [address] [place] Calcium.ionized (Bld) [Mass/Vol] 1.23 mmol/L Normal 1.08-1.30 [facility] Comment on above: Order Comment: Speci men Type: ARTERIAL BLOOD SPECIMENOrdering Facility: [facility] Address: [address] [place] [address] Performed By: #### A LLBG ####[facility] [id number] [place] [address] [place] Calcium.ionized adjusted to pH 7.4 (BldA) [Moles/Vol] 1.21 mmol/L Normal 1.08-1.30 [facility] Comment on above: Order Comment: Speci men Type: ARTERIAL BLOOD SPECIMENOrdering Facility: [facility] Address: [address] [place] [address] Performed By: #### A LLBG ####[facility] [id number] [place] [address] [place] Carboxyhemoglobin (BldA) [Mass fraction] 1.4 % Normal 0.0-2.0 [facility] Comment on above: Order Comment: Speci men Type: ARTERIAL BLOOD SPECIMENOrdering Facility: [facility] Address: [address] [place] [address] Result Comment: Carb oxyhemoglobin Reference Range for Smokers: 2.0-8.0% Performed By: #### A LLBG ####[facility] [id number] [place] [address] [place] CO2 (Bld) [Partial pressure] 42 mm Hg Normal 36-46 [facility] Comment on above: Order Comment: Speci men Type: ARTERIAL BLOOD SPECIMENOrdering Facility: [facility] Address: [address] [place] [address] Performed By: #### A LLBG ####[facility] [id number] [place] [address] [place] Glucose [Mass/Vol] 168 mg/dL High 60-105 [facility] Comment on above: Order Comment: Speci men Type: ARTERIAL BLOOD SPECIMENOrdering Facility: [facility] Address: [address] [place] [address] Performed By: #### A LLBG ####[facility] [id number] [place] [address] [place] HCO3 (Bld) [Moles/Vol] 23 mmol/L Normal 22-26 [facility] Comment on above: Order Comment: Speci men Type: ARTERIAL BLOOD SPECIMENOrdering Facility: [facility] Address: [address] [place] [address] Performed By: #### A LLBG ####[facility] [id number] [place] [address] [place] Hematocrit (Bld) [Volume fraction] 31.3 % Low 36.0-46.0 [facility] Comment on above: Order Comment: Speci men Type: ARTERIAL BLOOD SPECIMENOrdering Facility: [facility] Address: [address] [place] [address] Performed By: #### A LLBG ####[facility] [id number] [place] [address] [place] Hemoglobin (Bld) [Mass/Vol] 10.1 g/dL Low 11.5-15.5 [facility] Comment on above: Order Comment: Speci men Type: ARTERIAL BLOOD SPECIMENOrdering Facility: [facility] Address: [address] [place] [address] Performed By: #### A LLBG ####[facility] [id number] [place] [address] [place] Lactate [Moles/Vol] 1.4 mmol/L Normal 0.5-2.2 [facility] Comment on above: Order Comment: Speci men Type: ARTERIAL BLOOD SPECIMENOrdering Facility: [facility] Address: [address] [place] [address] Performed By: #### A LLBG ####[facility] [id number] [place] [address] [place] LITERS 4 Liters/min Normal [facility] Comment on above: Order Comment: Speci men Type: ARTERIAL BLOOD SPECIMENOrdering Facility: [facility] Address: [address] [place] [address] Performed By: #### A LLBG ####[facility] [id number] [place] [address] [place] Methemoglobin (Bld) [Mass fraction] 0.8 % Normal 0.0-1.5 [facility] Comment on above: Order Comment: Speci men Type: ARTERIAL BLOOD SPECIMENOrdering Facility: [facility] Address: [address] [place] [address] Performed By: #### A LLBG ####[facility] [id number] [place] [address] [place] O2 THERAPY NC = Nasal Cannula Normal [facility] Comment on above: Order Comment: Speci men Type: ARTERIAL BLOOD SPECIMENOrdering Facility: [facility] Address: [address] [place] [address] Performed By: #### A LLBG ####[facility] [id number] [place] [address] [place] Oxygen (Bld) [Partial pressure] 163 mm Hg High 85-95 [facility] Comment on above: Order Comment: Speci men Type: ARTERIAL BLOOD SPECIMENOrdering Facility: [facility] Address: [address] [place] [address] Performed By: #### A LLBG ####[facility] [id number] [place] [address] [place] Oxyhemoglobin (BldA) [Mass fraction] 98 % Normal 95-98 [facility] Comment on above: Order Comment: Speci men Type: ARTERIAL BLOOD SPECIMENOrdering Facility: [facility] Address: [address] [place] [address] Performed By: #### A LLBG ####[facility] [id number] [place] [address] [place] pH (Bld) 7.37 [pH] Normal 7.35-7.45 [facility] Comment on above: Order Comment: Speci men Type: ARTERIAL BLOOD SPECIMENOrdering Facility: [facility] Address: [address] [place] [address] Performed By: #### A LLBG ####[facility] [id number] [place] [address] [place] Potassium [Moles/Vol] 4.3 mmol/L Normal 3.5-5.0 [facility] Comment on above: Order Comment: Speci men Type: ARTERIAL BLOOD SPECIMENOrdering Facility: [facility] Address: [address] [place] [address] Performed By: #### A LLBG ####[facility] [id number] [place] [address] [place] Sodium [Moles/Vol] 138 mmol/L Normal 136-144 [facility] Comment on above: Order Comment: Speci men Type: ARTERIAL BLOOD SPECIMENOrdering Facility: [facility] Address: [address] [place] [address] Performed By: #### A LLBG ####[facility] [id number] [place] [address] [place] Base deficit (BldA) [Moles/Vol] -1 mmol/L Normal -2-0 [facility] Comment on above: Order Comment: Speci men Type: ARTERIAL BLOOD SPECIMENOrdering Facility: [facility] Address: [address] [place] [address] Performed By: #### A LLBG ####[facility] [id number] [place] [address] [place] Body temperature 98.6 [degF] Normal [facility] Comment on above: Order Comment: Speci men Type: ARTERIAL BLOOD SPECIMENOrdering Facility: [facility] Address: [address] [place] [address] Performed By: #### A LLBG ####[facility] [id number] [place] [address] [place] Calcium.ionized (Bld) [Mass/Vol] 1.21 mmol/L Normal 1.08-1.30 [facility] Comment on above: Order Comment: Speci men Type: ARTERIAL BLOOD SPECIMENOrdering Facility: [facility] Address: [address] [place] [address] Performed By: #### A LLBG ####[facility] [id number] [place] [address] [place] Calcium.ionized adjusted to pH 7.4 (BldA) [Moles/Vol] 1.18 mmol/L Normal 1.08-1.30 [facility] Comment on above: Order Comment: Speci men Type: ARTERIAL BLOOD SPECIMENOrdering Facility: [facility] Address: [address] [place] [address] Performed By: #### A LLBG ####[facility] [id number] [place] [address] [place] Carboxyhemoglobin (BldA) [Mass fraction] 0.8 % Normal 0.0-2.0 [facility] Comment on above: Order Comment: Speci men Type: ARTERIAL BLOOD SPECIMENOrdering Facility: [facility] Address: [address] [place] [address] Result Comment: Carb oxyhemoglobin Reference Range for Smokers: 2.0-8.0% Performed By: #### A LLBG ####[facility] [id number] [place] [address] [place] CO2 (Bld) [Partial pressure] 45 mm Hg Normal 36-46 [facility] Comment on above: Order Comment: Speci men Type: ARTERIAL BLOOD SPECIMENOrdering Facility: [facility] Address: [address] [place] [address] Performed By: #### A LLBG ####[facility] [id number] [place] [address] [place] Glucose [Mass/Vol] 134 mg/dL High 60-105 [facility] Comment on above: Order Comment: Speci men Type: ARTERIAL BLOOD SPECIMENOrdering Facility: [facility] Address: [address] [place] [address] Performed By: #### A LLBG ####[facility] [id number] [place] [address] [place] HCO3 (Bld) [Moles/Vol] 24 mmol/L Normal 22-26 [facility] Comment on above: Order Comment: Speci men Type: ARTERIAL BLOOD SPECIMENOrdering Facility: [facility] Address: [address] [place] [address] Performed By: #### A LLBG ####[facility] [id number] [place] [address] [place] Hematocrit (Bld) [Volume fraction] 31.0 % Low 36.0-46.0 [facility] Comment on above: Order Comment: Speci men Type: ARTERIAL BLOOD SPECIMENOrdering Facility: [facility] Address: [address] [place] [address] Performed By: #### A LLBG ####[facility] LABIA [id number] [place] [address] [place] Hemoglobin (Bld) [Mass/Vol] 10.0 g/dL Low 11.5-15.5 [facility] Comment on above: Order Comment: Speci men Type: ARTERIAL BLOOD SPECIMENOrdering Facility: [facility] Address: [address] [place] [address] Performed By: #### A LLBG ####[facility] LABIA [id number] [place] [address] [place] Lactate [Moles/Vol] 2.0 mmol/L Normal 0.5-2.2 [facility] Comment on above: Order Comment: Speci men Type: ARTERIAL BLOOD SPECIMENOrdering Facility: [facility] Address: [address] [place] [address] Performed By: #### A LLBG ####[facility] [id number] [place] [address] [place] LITERS 4 Liters/min Normal [facility] Comment on above: Order Comment: Speci men Type: ARTERIAL BLOOD SPECIMENOrdering Facility: [facility] Address: [address] [place] [address] Performed By: #### A LLBG ####[facility] [id number] [place] [address] [place] Methemoglobin (Bld) [Mass fraction] 0.8 % Normal 0.0-1.5 [facility] Comment on above: Order Comment: Speci men Type: ARTERIAL BLOOD SPECIMENOrdering Facility: [facility] Address: [address] [id number] Performed By: #### A LLBG ####[facility] [id number] [place] [address] [place] O2 THERAPY NC = Nasal Cannula Normal [facility] Comment on above: Order Comment: Speci men Type: ARTERIAL BLOOD SPECIMENOrdering Facility: [facility] Address: [address] [place] [address] Performed By: #### A LLBG ####[facility] [id number] [place] [address] [place] Oxygen (Bld) [Partial pressure] 184 mm Hg High 85-95 [facility] Comment on above: Order Comment: Speci men Type: ARTERIAL BLOOD SPECIMENOrdering Facility: [facility] Address: [address] [place] [address] Performed By: #### A LLBG ####[facility] [id number] [place] [address] [place] Oxyhemoglobin (BldA) [Mass fraction] 98 % Normal 95-98 [facility] Comment on above: Order Comment: Speci men Type: ARTERIAL BLOOD SPECIMENOrdering Facility: [facility] Address: [address] [place] [address] Performed By: #### A LLBG ####[facility] [id number] [place] [address] [place] pH (Bld) 7.36 [pH] Normal 7.35-7.45 [facility] Comment on above: Order Comment: Speci men Type: ARTERIAL BLOOD SPECIMENOrdering Facility: [facility] Address: [address], [place] [address] Performed By: #### A LLBG ####[facility] [id number] [place] [address] [place] Potassium [Moles/Vol] 4.1 mmol/L Normal 3.5-5.0 [facility] Comment on above: Order Comment: Speci men Type: ARTERIAL BLOOD SPECIMENOrdering Facility: [facility] Address: [address] [place] [address] Performed By: #### A LLBG ####[facility] [id number] [place] [address] [place] Sodium [Moles/Vol] 139 mmol/L Normal 136-144 [facility] Comment on above: Order Comment: Speci men Type: ARTERIAL BLOOD SPECIMENOrdering Facility: [facility] Address: [address] [place] [address] Performed By: #### A LLBG ####[facility] LABIA [id number] [place] [address] [place] Base deficit (BldA) [Moles/Vol] -1 mmol/L Normal -2-0 [facility] Comment on above: Order Comment: Speci men Type: ARTERIAL BLOOD SPECIMENOrdering Facility: [facility] Address: [address] [place] [address] Performed By: #### A LLBG ####[facility]IA [id number] [place] [address] [place] Body temperature 98.6 [degF] Normal [facility] Comment on above: Order Comment: Speci men Type: ARTERIAL BLOOD SPECIMENOrdering Facility: [facility] Address: [address] [place] [address] Performed By: #### A LLBG ####[facility] LABIA [id number] [place] [address] [place] Calcium.ionized (Bld) [Mass/Vol] 1.21 mmol/L Normal 1.08-1.30 [facility] Comment on above: Order Comment: Speci men Type: ARTERIAL BLOOD SPECIMENOrdering Facility: [facility] Address: [address] [place] [address] Performed By: #### A LLBG ####[facility] [id number] [place] [address] [place] Calcium.ionized adjusted to pH 7.4 (BldA) [Moles/Vol] 1.18 mmol/L Normal 1.08-1.30 [facility] Comment on above: Order Comment: Speci men Type: ARTERIAL BLOOD SPECIMENOrdering Facility: [facility] Address: [address] [place] [address] Performed By: #### A LLBG ####[facility] LABIA [id number] [place] [address] [place] Carboxyhemoglobin (BldA) [Mass fraction] 1.1 % Normal 0.0-2.0 [facility] Comment on above: Order Comment: Speci men Type: ARTERIAL BLOOD SPECIMENOrdering Facility: [facility] Address: [address] [place] [address] Result Comment: Carb oxyhemoglobin Reference Range for Smokers: 2.0-8.0% Performed By: #### A LLBG ####[facility] [id number] [place] [address] [place] CO2 (Bld) [Partial pressure] 42 mm Hg Normal 36-46 [facility] Comment on above: Order Comment: Speci men Type: ARTERIAL BLOOD SPECIMENOrdering Facility: [facility] Address: [address] [place] [address] Performed By: #### A LLBG ####[facility] [id number] [place] [address] [place] Glucose [Mass/Vol] 124 mg/dL High 60-105 [facility] Comment on above: Order Comment: Speci men Type: ARTERIAL BLOOD SPECIMENOrdering Facility: [facility] Address: [address] [place] [address] Performed By: #### A LLBG ####[facility] [id number] [place] [address] [place] HCO3 (Bld) [Moles/Vol] 24 mmol/L Normal 22-26 [facility] Comment on above: Order Comment: Speci men Type: ARTERIAL BLOOD SPECIMENOrdering Facility: [facility] Address: [address] [place] [address] Performed By: #### A LLBG ####[facility] [id number] [place] [address] [place] Hematocrit (Bld) [Volume fraction] 32.4 % Low 36.0-46.0 [facility] Comment on above: Order Comment: Speci men Type: ARTERIAL BLOOD SPECIMENOrdering Facility: [facility] Address: [address] [place] [address] Performed By: #### A LLBG ####[facility] LAB[facility] [id number] [place] [address] [place] Hemoglobin (Bld) [Mass/Vol] 10.5 g/dL Low 11.5-15.5 [facility] Comment on above: Order Comment: Speci men Type: ARTERIAL BLOOD SPECIMENOrdering Facility: [facility] Address: [address] [place] [address] Performed By: #### A LLBG ####[facility] [id number] [place] [address] [place] Lactate [Moles/Vol] 3.3 mmol/L High 0.5-2.2 [facility] Comment on above: Order Comment: Speci men Type: ARTERIAL BLOOD SPECIMENOrdering Facility: [facility] Address: [address] [place] [address] Performed By: #### A LLBG ####[facility]CL[facility] [id number] [place] [id number] [place] LITERS 4 Liters/min Normal [facility] Comment on above: Order Comment: Speci men Type: ARTERIAL BLOOD SPECIMENOrdering Facility: [facility] Address: [address] [id number] Performed By: #### A LLBG ####[facility]CL[facility] [id number] [place] [address] [place] Methemoglobin (Bld) [Mass fraction] 1.0 % Normal 0.0-1.5 [facility] Comment on above: Order Comment: Speci men Type: ARTERIAL BLOOD SPECIMENOrdering Facility: [facility] Address: [address] [place] [address] Performed By: #### A LLBG ####[facility] [id number] [place] [address] [place] O2 THERAPY NC = Nasal Cannula Normal [facility] Comment on above: Order Comment: Speci men Type: ARTERIAL BLOOD SPECIMENOrdering Facility: [facility] Address: [address] [place], [place] [address] Performed By: #### A LLBG ####[facility]CL[facility] [id number] [place] [address] [place] Oxygen (Bld) [Partial pressure] 172 mm Hg High 85-95 [facility] Comment on above: Order Comment: Speci men Type: ARTERIAL BLOOD SPECIMENOrdering Facility: [facility] Address: [address] [id number] Performed By: #### A LLBG ####[facility]CL[facility] [id number] [place] [address] [place] Oxyhemoglobin (BldA) [Mass fraction] 98 % Normal 95-98 [facility] Comment on above: Order Comment: Speci men Type: ARTERIAL BLOOD SPECIMENOrdering Facility: [facility] Address: [address] [id number] Performed By: #### A LLBG ####[facility] [id number] [place] [address] [place] pH (Bld) 7.37 [pH] Normal 7.35-7.45 [facility] Comment on above: Order Comment: Speci men Type: ARTERIAL BLOOD SPECIMENOrdering Facility: [facility] Address: [address] [place] [address] Performed By: #### A LLBG ####[facility]CL[facility] [id number] [place] [address] [place] Potassium [Moles/Vol] 3.9 mmol/L Normal 3.5-5.0 [facility] Comment on above: Order Comment: Speci men Type: ARTERIAL BLOOD SPECIMENOrdering Facility: [facility] Address: [address] [place] [address] Performed By: #### A LLBG ####[facility] LABIA [id number] [place] [address] [place] Sodium [Moles/Vol] 138 mmol/L Normal 136-144 [facility] Comment on above: Order Comment: Speci men Type: ARTERIAL BLOOD SPECIMENOrdering Facility: [facility] Address: [address] [place] [address] Performed By: #### A LLBG ####[facility] LABIA [id number] [place] [address] [place] Base deficit (BldA) [Moles/Vol] -1 mmol/L Normal -2-0 [facility] Comment on above: Order Comment: Speci men Type: ARTERIAL BLOOD SPECIMENOrdering Facility: [facility] Address: [address] [place] [address] Performed By: #### A LLBG ####[facility] LABIA [id number] [place] [address] [place] Body temperature 96.08 [degF] Normal [facility] Comment on above: Order Comment: Speci men Type: ARTERIAL BLOOD SPECIMENOrdering Facility: [facility] Address: [address] [place] [address] Performed By: #### A LLBG ####[facility] LABIA [id number] [place] [address] [place] Calcium.ionized (Bld) [Mass/Vol] 1.14 mmol/L Normal 1.08-1.30 [facility] Comment on above: Order Comment: Speci men Type: ARTERIAL BLOOD SPECIMENOrdering Facility: [facility] Address: [address] [place] [address] Performed By: #### A LLBG ####[facility] [id number] [place] [address] [place] Calcium.ionized adjusted to pH 7.4 (BldA) [Moles/Vol] 1.13 mmol/L Normal 1.08-1.30 [facility] Comment on above: Order Comment: Speci men Type: ARTERIAL BLOOD SPECIMENOrdering Facility: [facility] Address: [address] [place] [address] Performed By: #### A LLBG ####[facility]IA [id number] [place] [address] [place] Carboxyhemoglobin (BldA) [Mass fraction] 1.3 % Normal 0.0-2.0 [facility] Comment on above: Order Comment: Speci men Type: ARTERIAL BLOOD SPECIMENOrdering Facility: [facility] Address: [address] [place] [address] Result Comment: Carb oxyhemoglobin Reference Range for Smokers: 2.0-8.0% Performed By: #### A LLBG ####[facility]IA [id number] [place] [address] [place] CO2 (Bld) [Partial pressure] 39 mm Hg Normal 36-46 [facility] Comment on above: Order Comment: Speci men Type: ARTERIAL BLOOD SPECIMENOrdering Facility: [facility] Address: [address] [place] [address] Performed By: #### A LLBG ####[facility]CL[facility] [id number] [place] [address] [place] CO2 adjusted to patient's actual temperature (Bld) [Partial pressure] 36 mmHg Normal 36-46 [facility] Comment on above: Order Comment: Speci men Type: ARTERIAL BLOOD SPECIMENOrdering Facility: [facility] Address: [address] [place] [address] Performed By: #### A LLBG ####[facility]CL[facility] [id number] [place] [address] [place] FIO2 40 % Normal [facility] Comment on above: Order Comment: Speci men Type: ARTERIAL BLOOD SPECIMENOrdering Facility: [facility] Address: [address] [place] [address] Performed By: #### A LLBG ####[facility]CL[facility] [id number] [place] [address] [place] Glucose [Mass/Vol] 188 mg/dL High 60-105 [facility] Comment on above: Order Comment: Speci men Type: ARTERIAL BLOOD SPECIMENOrdering Facility: [facility] Address: [address] [place] [address] Performed By: #### A LLBG ####[facility]CL[facility] [id number] [place] [address] [place] HCO3 (Bld) [Moles/Vol] 23 mmol/L Normal 22-26 [facility] Comment on above: Order Comment: Speci men Type: ARTERIAL BLOOD SPECIMENOrdering Facility: [facility] Address: [address] [place] [address] Performed By: #### A LLBG ####[facility]CL[facility] [id number] [place] [address] [place] Hematocrit (Bld) [Volume fraction] 32.1 % Low 36.0-46.0 [facility] Comment on above: Order Comment: Speci men Type: ARTERIAL BLOOD SPECIMENOrdering Facility: [facility] Address: [address] [place] [address] Performed By: #### A LLBG ####[facility] [id number] [place] [address] [place] Hemoglobin (Bld) [Mass/Vol] 10.4 g/dL Low 11.5-15.5 [facility] Comment on above: Order Comment: Speci men Type: ARTERIAL BLOOD SPECIMENOrdering Facility: [facility] Address: [address] [place] [address] Performed By: #### A LLBG ####[facility] [id number] [place] [address] [place] Lactate [Moles/Vol] 2.5 mmol/L High 0.5-2.2 [facility] Comment on above: Order Comment: Speci men Type: ARTERIAL BLOOD SPECIMENOrdering Facility: [facility] Address: [address] [place] [address] Performed By: #### A LLBG ####[facility] [id number] [place] [address] [place] Methemoglobin (Bld) [Mass fraction] 1.5 % Normal 0.0-1.5 [facility] Comment on above: Order Comment: Speci men Type: ARTERIAL BLOOD SPECIMENOrdering Facility: [facility] Address: [address] [place] [address] Performed By: #### A LLBG ####[facility] [id number] [place] [address] [place] O2 THERAPY VENT=Ventilator Normal [facility] Comment on above: Order Comment: Speci men Type: ARTERIAL BLOOD SPECIMENOrdering Facility: [facility] Address: [address], [place] [address] Result Comment: CPAP Performed By: #### A LLBG ####[facility] [id number] [place] [address] [place] Oxygen (Bld) [Partial pressure] 144 mm Hg High 85-95 [facility] Comment on above: Order Comment: Speci men Type: ARTERIAL BLOOD SPECIMENOrdering Facility: [facility] Address: [address] [place] [address] Performed By: #### A LLBG ####[facility] [id number] [place] [address] [place] Oxygen adjusted to patient's actual temperature (Bld) [Partial pressure] 137 mmHg High 85-95 [facility] Comment on above: Order Comment: Speci men Type: ARTERIAL BLOOD SPECIMENOrdering Facility: [facility] Address: [address] [place] [address] Performed By: #### A LLBG ####[facility] [id number] [place] [address] [place] Oxyhemoglobin (BldA) [Mass fraction] 96 % Normal 95-98 [facility] Comment on above: Order Comment: Speci men Type: ARTERIAL BLOOD SPECIMENOrdering Facility: [facility] Address: [address] [place] [address] Performed By: #### A LLBG ####[facility] [id number] [place] [address] [place] PEEP/CPAP 5 cmH2O Normal [facility] Comment on above: Order Comment: Speci men Type: ARTERIAL BLOOD SPECIMENOrdering Facility: [facility] Address: [address] [place] [address] Performed By: #### A LLBG ####[facility] [id number] [place] [id number] [place] pH (Bld) 7.39 [pH] Normal 7.35-7.45 [facility] Comment on above: Order Comment: Speci men Type: ARTERIAL BLOOD SPECIMENOrdering Facility: [facility] Address: [address] [place] [address] Performed By: #### A LLBG ####[facility] [id number] [place] [address] [place] pH adjusted to patient's actual temperature (Bld) 7.41 Normal 7.35-7.45 [facility] Comment on above: Order Comment: Speci men Type: ARTERIAL BLOOD SPECIMENOrdering Facility: [facility] Address: [address] [place] [address] Performed By: #### A LLBG ####[facility] [id number] [place] [address] [place] PO2 / FIO2 RATIO 360 mmHg Normal >300 [facility] Comment on above: Order Comment: Speci men Type: ARTERIAL BLOOD SPECIMENOrdering Facility: [facility] Address: [address] [place] [address] Performed By: #### A LLBG ####[facility] [id number] [place] [address] [place] Potassium [Moles/Vol] 3.9 mmol/L Normal 3.5-5.0 [facility] Comment on above: Order Comment: Speci men Type: ARTERIAL BLOOD SPECIMENOrdering Facility: [facility] Address: [address] [place] [address] Performed By: #### A LLBG ####[facility] [id number] [place] [address] [place] Sodium [Moles/Vol] 138 mmol/L Normal 136-144 [facility] Comment on above: Order Comment: Speci men Type: ARTERIAL BLOOD SPECIMENOrdering Facility: [facility] Address: [address] [place], [place] [address] Performed By: #### A LLBG ####[facility] [id number] [place] [address] [place] Base deficit (BldA) [Moles/Vol] -1 mmol/L Normal -2-0 [facility] Comment on above: Order Comment: Speci men Type: ARTERIAL BLOOD SPECIMENOrdering Facility: [facility] Address: [address] [place] [address] Performed By: #### A LLBG ####[facility] [id number] [place] [address] [place] Body temperature 95.72 [degF] Normal [facility] Comment on above: Order Comment: Speci men Type: ARTERIAL BLOOD SPECIMENOrdering Facility: [facility] Address: [address] [place] [address] Performed By: #### A LLBG ####[facility] [id number] [place] [address] [place] Calcium.ionized (Bld) [Mass/Vol] 1.14 mmol/L Normal 1.08-1.30 [facility] Comment on above: Order Comment: Speci men Type: ARTERIAL BLOOD SPECIMENOrdering Facility: [facility] Address: [address] [place] [address] Performed By: #### A LLBG ####[facility] [id number] [place] [address] [place] Calcium.ionized adjusted to pH 7.4 (BldA) [Moles/Vol] 1.18 mmol/L Normal 1.08-1.30 [facility] Comment on above: Order Comment: Speci men Type: ARTERIAL BLOOD SPECIMENOrdering Facility: [facility] Address: [address] [place] [address] Performed By: #### A LLBG ####[facility] [id number] [place] [address] [place] Carboxyhemoglobin (BldA) [Mass fraction] 1.6 % Normal 0.0-2.0 [facility] Comment on above: Order Comment: Speci men Type: ARTERIAL BLOOD SPECIMENOrdering Facility: [facility] Address: [address] [place] [address] Result Comment: Carb oxyhemoglobin Reference Range for Smokers: 2.0-8.0% Performed By: #### A LLBG ####[facility] [id number] [place] [address] [place] CO2 (Bld) [Partial pressure] 32 mm Hg Low 36-46 [facility] Comment on above: Order Comment: Speci men Type: ARTERIAL BLOOD SPECIMENOrdering Facility: [facility] Address: [address] [place] [address] Performed By: #### A LLBG ####[facility] [id number] [place] [address] [place] CO2 adjusted to patient's actual temperature (Bld) [Partial pressure] 30 mmHg Low 36-46 [facility] Comment on above: Order Comment: Speci men Type: ARTERIAL BLOOD SPECIMENOrdering Facility: [facility] Address: [address] [place] [address] Performed By: #### A LLBG ####[facility] [id number] [place] [address] [place] Glucose [Mass/Vol] 164 mg/dL High 60-105 [facility] Comment on above: Order Comment: Speci men Type: ARTERIAL BLOOD SPECIMENOrdering Facility: [facility] Address: [address] [place] [address] Performed By: #### A LLBG ####[facility] [id number] [place] [address] [place] HCO3 (Bld) [Moles/Vol] 22 mmol/L Normal 22-26 [facility] Comment on above: Order Comment: Speci men Type: ARTERIAL BLOOD SPECIMENOrdering Facility: [facility] Address: [address] [place] [address] Performed By: #### A LLBG ####[facility] [id number] [place] [address] [place] Hematocrit (Bld) [Volume fraction] 31.5 % Low 36.0-46.0 [facility] Comment on above: Order Comment: Speci men Type: ARTERIAL BLOOD SPECIMENOrdering Facility: [facility] Address: [address] [place] [address] Performed By: #### A LLBG ####[facility] [id number] [place] [address] [place] Hemoglobin (Bld) [Mass/Vol] 10.2 g/dL Low 11.5-15.5 [facility] Comment on above: Order Comment: Speci men Type: ARTERIAL BLOOD SPECIMENOrdering Facility: [facility] Address: [address] [place] [address] Performed By: #### A LLBG ####[facility] [id number] [place] [address] [place] Lactate [Moles/Vol] 2.7 mmol/L High 0.5-2.2 [facility] Comment on above: Order Comment: Speci men Type: ARTERIAL BLOOD SPECIMENOrdering Facility: [facility] Address: [address] [place] [address] Performed By: #### A LLBG ####[facility] [id number] [place] [address] [place] Methemoglobin (Bld) [Mass fraction] 0.9 % Normal 0.0-1.5 [facility] Comment on above: Order Comment: Speci men Type: ARTERIAL BLOOD SPECIMENOrdering Facility: [facility] Address: [address] [place] [address] Performed By: #### A LLBG ####[facility] [id number] [place] [address] [place] O2 THERAPY VENT=Ventilator Normal [facility] Comment on above: Order Comment: Speci men Type: ARTERIAL BLOOD SPECIMENOrdering Facility: [facility] Address: [address] [place] [address] Performed By: #### A LLBG ####[facility] [id number] [address] [address] [place] Oxygen (Bld) [Partial pressure] 141 mm Hg High 85-95 [facility] Comment on above: Order Comment: Speci men Type: ARTERIAL BLOOD SPECIMENOrdering Facility: [facility] Address: [address] [place] [address] Performed By: #### A LLBG ####[facility] [id number] [address] [place] Oxygen adjusted to patient's actual temperature (Bld) [Partial pressure] 134 mmHg High 85-95 [facility] Comment on above: Order Comment: Speci men Type: ARTERIAL BLOOD SPECIMENOrdering Facility: [facility] Address: [address] [place] [address] Performed By: #### A LLBG ####[facility] [id number] [place] [address] [place] Oxyhemoglobin (BldA) [Mass fraction] 97 % Normal 95-98 [facility] Comment on above: Order Comment: Speci men Type: ARTERIAL BLOOD SPECIMENOrdering Facility: [facility] Address: [address] [place] [address] Performed By: #### A LLBG ####[facility] [id number] [place] [address] [place] pH (Bld) 7.45 [pH] Normal 7.35-7.45 [facility] Comment on above: Order Comment: Speci men Type: ARTERIAL BLOOD SPECIMENOrdering Facility: [facility] Address: [address] [place] [address] Performed By: #### A LLBG ####[facility] [id number] [place] [address] [place] pH adjusted to patient's actual temperature (Bld) 7.48 High 7.35-7.45 [facility] Comment on above: Order Comment: Speci men Type: ARTERIAL BLOOD SPECIMENOrdering Facility: [facility] Address: [address] [place] [address] Performed By: #### A LLBG ####[facility] [id number] [place] [address] [place] Potassium [Moles/Vol] 4.3 mmol/L Normal 3.5-5.0 [facility] Comment on above: Order Comment: Speci men Type: ARTERIAL BLOOD SPECIMENOrdering Facility: [facility] Address: [address] [place] [address] Performed By: #### A LLBG ####[facility] [id number] [place] [address] [place] Sodium [Moles/Vol] 139 mmol/L Normal 136-144 [facility] Comment on above: Order Comment: Speci men Type: ARTERIAL BLOOD SPECIMENOrdering Facility: [facility] Address: [address] [place] [address] Performed By: #### A LLBG ####[facility] [id number] [place] [address] [place] Base deficit (BldA) [Moles/Vol] -1 mmol/L Normal -2-0 [facility] Comment on above: Order Comment: Speci men Type: ARTERIAL BLOOD SPECIMENOrdering Facility: [facility] Address: [address] [place] [address] Performed By: #### A LLBG ####[facility] [id number] [place] [address] [place] Body temperature 96.8 [degF] Normal [facility] Comment on above: Order Comment: Speci men Type: ARTERIAL BLOOD SPECIMENOrdering Facility: [facility] Address: [address] [place] [address] Performed By: #### A LLBG ####[facility] [id number] [place] [address] [place] Calcium.ionized (Bld) [Mass/Vol] 1.16 mmol/L Normal 1.08-1.30 [facility] Comment on above: Order Comment: Speci men Type: ARTERIAL BLOOD SPECIMENOrdering Facility: [facility] Address: [address] [place] [address] Performed By: #### A LLBG ####[facility] [id number] [place] [address] [place] Calcium.ionized adjusted to pH 7.4 (BldA) [Moles/Vol] 1.17 mmol/L Normal 1.08-1.30 [facility] Comment on above: Order Comment: Speci men Type: ARTERIAL BLOOD SPECIMENOrdering Facility: [facility] Address: [address] [place] [address] Performed By: #### A LLBG ####[facility] [id number] [place] [address] [place] Carboxyhemoglobin (BldA) [Mass fraction] 0.8 % Normal 0.0-2.0 [facility] Comment on above: Order Comment: Speci men Type: ARTERIAL BLOOD SPECIMENOrdering Facility: [facility] Address: [address] [place] [address] Result Comment: Carb oxyhemoglobin Reference Range for Smokers: 2.0-8.0% Performed By: #### A LLBG ####[facility] [id number] [place] [address] [place] CO2 (Bld) [Partial pressure] 35 mm Hg Low 36-46 [facility] Comment on above: Order Comment: Speci men Type: ARTERIAL BLOOD SPECIMENOrdering Facility: [facility] Address: [address] [place] [address] Performed By: #### A LLBG ####[facility] [id number] [place] [address] [place] CO2 adjusted to patient's actual temperature (Bld) [Partial pressure] 33 mmHg Low 36-46 [facility] Comment on above: Order Comment: Speci men Type: ARTERIAL BLOOD SPECIMENOrdering Facility: [facility] Address: [address] [place] [address] Performed By: #### A LLBG ####[facility] [id number] [place] [address] [place] FIO2 40 % Normal [facility] Comment on above: Order Comment: Speci men Type: ARTERIAL BLOOD SPECIMENOrdering Facility: [facility] Address: [address] [place] [address] Performed By: #### A LLBG ####[facility] [id number] [place] [address] [place] Glucose [Mass/Vol] 133 mg/dL High 60-105 [facility] Comment on above: Order Comment: Speci men Type: ARTERIAL BLOOD SPECIMENOrdering Facility: [facility] Address: [address] [place] [address] Performed By: #### A LLBG ####[facility] [id number] [place] [address] [place] HCO3 (Bld) [Moles/Vol] 22 mmol/L Normal 22-26 [facility] Comment on above: Order Comment: Speci men Type: ARTERIAL BLOOD SPECIMENOrdering Facility: [facility] Address: [address] [place] [address] Performed By: #### A LLBG ####[facility] [id number] [place] [address] [place] Hematocrit (Bld) [Volume fraction] 29.8 % Low 36.0-46.0 [facility] Comment on above: Order Comment: Speci men Type: ARTERIAL BLOOD SPECIMENOrdering Facility: [facility] Address: [address] [place] [address] Performed By: #### A LLBG ####[facility] [id number] [place] [address] [place] Hemoglobin (Bld) [Mass/Vol] 9.6 g/dL Low 11.5-15.5 [facility] Comment on above: Order Comment: Speci men Type: ARTERIAL BLOOD SPECIMENOrdering Facility: [facility] Address: [address] [place] [address] Performed By: #### A LLBG ####[facility] [id number] [place] [address] [place] Lactate [Moles/Vol] 3.3 mmol/L High 0.5-2.2 [facility] Comment on above: Order Comment: Speci men Type: ARTERIAL BLOOD SPECIMENOrdering Facility: [facility] Address: [address] [place] [address] Performed By: #### A LLBG ####[facility] [id number] [place] [address] [place] Methemoglobin (Bld) [Mass fraction] 1.5 % Normal 0.0-1.5 [facility] Comment on above: Order Comment: Speci men Type: ARTERIAL BLOOD SPECIMENOrdering Facility: [facility] Address: [address] [place] [address] Performed By: #### A LLBG ####[facility] [id number] [place] [address] [place] O2 THERAPY VENT=Ventilator Normal [facility] Comment on above: Order Comment: Speci men Type: ARTERIAL BLOOD SPECIMENOrdering Facility: [facility] Address: [address] [place] [address] Performed By: #### A LLBG ####[facility] [id number] [place] [address] [place] Oxygen (Bld) [Partial pressure] 134 mm Hg High 85-95 [facility] Comment on above: Order Comment: Speci men Type: ARTERIAL BLOOD SPECIMENOrdering Facility: [facility] Address: [address] [place] [address] Performed By: #### A LLBG ####[facility] [id number] [place] [address] [place] Oxygen adjusted to patient's actual temperature (Bld) [Partial pressure] 129 mmHg High 85-95 [facility] Comment on above: Order Comment: Speci men Type: ARTERIAL BLOOD SPECIMENOrdering Facility: [facility] Address: [address] [place] [address] Performed By: #### A LLBG ####[facility] [id number] [place] [address] [place] Oxyhemoglobin (BldA) [Mass fraction] 96 % Normal 95-98 [facility] Comment on above: Order Comment: Speci men Type: ARTERIAL BLOOD SPECIMENOrdering Facility: [facility] Address: [address] [place] [address] Performed By: #### A LLBG ####[facility] [id number] [place] [address] [place] PEEP/CPAP 8 cmH2O Normal [facility] Comment on above: Order Comment: Speci men Type: ARTERIAL BLOOD SPECIMENOrdering Facility: [facility] Address: [address] [place] [address] Performed By: #### A LLBG ####[facility] [id number] [place] [id number] [place] pH (Bld) 7.42 [pH] Normal 7.35-7.45 [facility] Comment on above: Order Comment: Speci men Type: ARTERIAL BLOOD SPECIMENOrdering Facility: [facility] Address: [address] [place] [id number] Performed By: #### A LLBG ####[facility] [id number] [place] [id number] [place] pH adjusted to patient's actual temperature (Bld) 7.43 Normal 7.35-7.45 [facility] Comment on above: Order Comment: Speci men Type: ARTERIAL BLOOD SPECIMENOrdering Facility: [facility] Address: [address] [place], [place] [address] Performed By: #### A LLBG ####[facility] [id number] [place] [address] [place] PO2 / FIO2 RATIO 335 mmHg Normal >300 [facility] Comment on above: Order Comment: Speci men Type: ARTERIAL BLOOD SPECIMENOrdering Facility: [facility] Address: [address] [place] [address] Performed By: #### A LLBG ####[facility] [id number] [place] [address] [place] Potassium [Moles/Vol] 4.0 mmol/L Normal 3.5-5.0 [facility] Comment on above: Order Comment: Speci men Type: ARTERIAL BLOOD SPECIMENOrdering Facility: [facility] Address: [address] [place], [place] [address] Performed By: #### A LLBG ####[facility] [id number] [place] [id number] [place] Sodium [Moles/Vol] 139 mmol/L Normal 136-144 [facility] Comment on above: Order Comment: Speci men Type: ARTERIAL BLOOD SPECIMENOrdering Facility: [facility] Address: [address] [place], [place] [address] Performed By: #### A LLBG ####[facility] [id number] [place] [address] [place] Base deficit (BldA) [Moles/Vol] -2 mmol/L Normal -2-0 [facility] Comment on above: Order Comment: Speci men Type: ARTERIAL BLOOD SPECIMENOrdering Facility: [facility] Address: [address] [place] [address] Performed By: #### A LLBG ####[facility] [id number] [place] [address] [place] Body temperature 98.6 [degF] Normal [facility] Comment on above: Order Comment: Speci men Type: ARTERIAL BLOOD SPECIMENOrdering Facility: [facility] Address: [address] [place] [address] Performed By: #### A LLBG ####[facility] [id number] [place] [address] [place] Calcium.ionized (Bld) [Mass/Vol] 1.13 mmol/L Normal 1.08-1.30 [facility] Comment on above: Order Comment: Speci men Type: ARTERIAL BLOOD SPECIMENOrdering Facility: [facility] Address: [address] [place] [address] Performed By: #### A LLBG ####[facility] [id number] [place] [address] [place] Calcium.ionized adjusted to pH 7.4 (BldA) [Moles/Vol] 1.13 mmol/L Normal 1.08-1.30 [facility] Comment on above: Order Comment: Speci men Type: ARTERIAL BLOOD SPECIMENOrdering Facility: [facility] Address: [address] [place] [address] Performed By: #### A LLBG ####[facility] [id number] [place] [address] [place] Carboxyhemoglobin (BldA) [Mass fraction] 0.7 % Normal 0.0-2.0 [facility] Comment on above: Order Comment: Speci men Type: ARTERIAL BLOOD SPECIMENOrdering Facility: [facility] Address: [address] [place] [address] Result Comment: Carb oxyhemoglobin Reference Range for Smokers: 2.0-8.0% Performed By: #### A LLBG ####[facility] [id number] [place] [address] [place] CO2 (Bld) [Partial pressure] 37 mm Hg Normal 36-46 [facility] Comment on above: Order Comment: Speci men Type: ARTERIAL BLOOD SPECIMENOrdering Facility: [facility] Address: [address] [place] [address] Performed By: #### A LLBG ####[facility] [id number] [place] [address] [place] FIO2 40 % Normal [facility] Comment on above: Order Comment: Speci men Type: ARTERIAL BLOOD SPECIMENOrdering Facility: [facility] Address: [address] [place] [address] Performed By: #### A LLBG ####[facility] [id number] [place] [address] [place] Glucose [Mass/Vol] 122 mg/dL High 60-105 [facility] Comment on above: Order Comment: Speci men Type: ARTERIAL BLOOD SPECIMENOrdering Facility: [facility] Address: [address] [place] [address] Performed By: #### A LLBG ####[facility] [id number] [place] [address] [place] HCO3 (Bld) [Moles/Vol] 22 mmol/L Normal 22-26 [facility] Comment on above: Order Comment: Speci men Type: ARTERIAL BLOOD SPECIMENOrdering Facility: [facility] Address: [address] [place] [address] Performed By: #### A LLBG ####[facility] [id number] [place] [address] [place] Hematocrit (Bld) [Volume fraction] 31.2 % Low 36.0-46.0 [facility] Comment on above: Order Comment: Speci men Type: ARTERIAL BLOOD SPECIMENOrdering Facility: [facility] Address: [address] [place] [address] Performed By: #### A LLBG ####[facility] [id number] [place] [address] [place] Hemoglobin (Bld) [Mass/Vol] 10.1 g/dL Low 11.5-15.5 [facility] Comment on above: Order Comment: Speci men Type: ARTERIAL BLOOD SPECIMENOrdering Facility: [facility] Address: [address] [place] [address] Performed By: #### A LLBG ####[facility] [id number] [place] [address] [place] Lactate [Moles/Vol] 4.4 mmol/L High 0.5-2.2 [facility] Comment on above: Order Comment: Speci men Type: ARTERIAL BLOOD SPECIMENOrdering Facility: [facility] Address: [address] [place] [address] Performed By: #### A LLBG ####[facility] [id number] [place] [address] [place] Methemoglobin (Bld) [Mass fraction] 1.5 % Normal 0.0-1.5 [facility] Comment on above: Order Comment: Speci men Type: ARTERIAL BLOOD SPECIMENOrdering Facility: [facility] Address: [address] [place] [address] Performed By: #### A LLBG ####[facility] [id number] [place] [address] [place] O2 THERAPY VENT=Ventilator Normal [facility] Comment on above: Order Comment: Speci men Type: ARTERIAL BLOOD SPECIMENOrdering Facility: [facility] Address: [address] [place] [address] Performed By: #### A LLBG ####[facility] [id number] [place] [address] [place] Oxygen (Bld) [Partial pressure] 127 mm Hg High 85-95 [facility] Comment on above: Order Comment: Speci men Type: ARTERIAL BLOOD SPECIMENOrdering Facility: [facility] Address: [address] [place] [address] Performed By: #### A LLBG ####[facility] [id number] [place] [address] [place] Oxyhemoglobin (BldA) [Mass fraction] 97 % Normal 95-98 [facility] Comment on above: Order Comment: Speci men Type: ARTERIAL BLOOD SPECIMENOrdering Facility: [facility] Address: [address] [place] [address] Performed By: #### A LLBG ####[facility] [id number] [place] [address] [place] PEEP/CPAP 8 cmH2O Normal [facility] Comment on above: Order Comment: Speci men Type: ARTERIAL BLOOD SPECIMENOrdering Facility: [facility] Address: [address] [place] [address] Performed By: #### A LLBG ####[facility] [id number] [place] [address] [place] pH (Bld) 7.40 [pH] Normal 7.35-7.45 [facility] Comment on above: Order Comment: Speci men Type: ARTERIAL BLOOD SPECIMENOrdering Facility: [facility] Address: [address] [place] [address] Performed By: #### A LLBG ####[facility] [id number] [place] [address] [place] PO2 / FIO2 RATIO 318 mmHg Normal >300 [facility] Comment on above: Order Comment: Speci men Type: ARTERIAL BLOOD SPECIMENOrdering Facility: [facility] Address: [address] [place] [address] Performed By: #### A LLBG ####[facility] [id number] [place] [address] [place] Potassium [Moles/Vol] 3.9 mmol/L Normal 3.5-5.0 [facility] Comment on above: Order Comment: Speci men Type: ARTERIAL BLOOD SPECIMENOrdering Facility: [facility] Address: [address] [place] [address] Performed By: #### A LLBG ####[facility] [id number] [place] [address] [place] Sodium [Moles/Vol] 137 mmol/L Normal 136-144 [facility] Comment on above: Order Comment: Speci men Type: ARTERIAL BLOOD SPECIMENOrdering Facility: [facility] Address: [address] [place] [address] Performed By: #### A LLBG ####[facility] [id number] [place] [address] [place] Base deficit (BldA) [Moles/Vol] -3 mmol/L Low -2-0 [facility] Comment on above: Order Comment: Speci men Type: ARTERIAL BLOOD SPECIMENOrdering Facility: [facility] Address: [address] [place] [address] Performed By: #### A LLBG ####[facility] [id number] [place] [address] [place] Body temperature 97.34 [degF] Normal [facility] Comment on above: Order Comment: Speci men Type: ARTERIAL BLOOD SPECIMENOrdering Facility: [facility] Address: [address] [place] [address] Performed By: #### A LLBG ####[facility] [id number] [place] [address] [place] Calcium.ionized (Bld) [Mass/Vol] 1.14 mmol/L Normal 1.08-1.30 [facility] Comment on above: Order Comment: Speci men Type: ARTERIAL BLOOD SPECIMENOrdering Facility: [facility] Address: [address] [place] [address] Performed By: #### A LLBG ####[facility] [id number] [place] [address] [place] Calcium.ionized adjusted to pH 7.4 (BldA) [Moles/Vol] 1.13 mmol/L Normal 1.08-1.30 [facility] Comment on above: Order Comment: Speci men Type: ARTERIAL BLOOD SPECIMENOrdering Facility: [facility] Address: [address] [place] [address] Performed By: #### A LLBG ####[facility] [id number] [place] [address] [place] Carboxyhemoglobin (BldA) [Mass fraction] 1.0 % Normal 0.0-2.0 [facility] Comment on above: Order Comment: Speci men Type: ARTERIAL BLOOD SPECIMENOrdering Facility: [facility] Address: [address] [place] [address] Result Comment: Carb oxyhemoglobin Reference Range for Smokers: 2.0-8.0% Performed By: #### A LLBG ####[facility] [id number] [place] [address] [place] CO2 (Bld) [Partial pressure] 36 mm Hg Normal 36-46 [facility] Comment on above: Order Comment: Speci men Type: ARTERIAL BLOOD SPECIMENOrdering Facility: [facility] Address: [address] [place] [address] Performed By: #### A LLBG ####[facility] LABCL[facility] [id number] [place] [address] [place] CO2 adjusted to patient's actual temperature (Bld) [Partial pressure] 35 mmHg Low 36-46 [facility] Comment on above: Order Comment: Speci men Type: ARTERIAL BLOOD SPECIMENOrdering Facility: [facility] Address: [address] [place] [address] Performed By: #### A LLBG ####[facility] [id number] [place] [address] [place] FIO2 40 % Normal [facility] Comment on above: Order Comment: Speci men Type: ARTERIAL BLOOD SPECIMENOrdering Facility: [facility] Address: [address] [place] [address] Performed By: #### A LLBG ####[facility] [id number] [place] [address] [place] Glucose [Mass/Vol] 124 mg/dL High 60-105 [facility] Comment on above: Order Comment: Speci men Type: ARTERIAL BLOOD SPECIMENOrdering Facility: [facility] Address: [address] [place] [address] Performed By: #### A LLBG ####[facility] [id number] [place] [address] [place] HCO3 (Bld) [Moles/Vol] 21 mmol/L Low 22-26 [facility] Comment on above: Order Comment: Speci men Type: ARTERIAL BLOOD SPECIMENOrdering Facility: [facility] Address: [address] [place] [address] Performed By: #### A LLBG ####[facility] [id number] [place] [address] [place] Hematocrit (Bld) [Volume fraction] 28.2 % Low 36.0-46.0 [facility] Comment on above: Order Comment: Speci men Type: ARTERIAL BLOOD SPECIMENOrdering Facility: [facility] Address: [address] [place] [address] Performed By: #### A LLBG ####[facility] [id number] [place] [address] [place] Hemoglobin (Bld) [Mass/Vol] 9.1 g/dL Low 11.5-15.5 [facility] Comment on above: Order Comment: Speci men Type: ARTERIAL BLOOD SPECIMENOrdering Facility: [facility] Address: [address] [place] [address] Performed By: #### A LLBG ####[facility] LABIA [id number] [place] [address] [place] Lactate [Moles/Vol] 4.5 mmol/L High 0.5-2.2 [facility] Comment on above: Order Comment: Speci men Type: ARTERIAL BLOOD SPECIMENOrdering Facility: [facility] Address: [address] [place] [address] Performed By: #### A LLBG ####[facility] LABIA [id number] [place] [address] [place] Methemoglobin (Bld) [Mass fraction] 0.9 % Normal 0.0-1.5 [facility] Comment on above: Order Comment: Speci men Type: ARTERIAL BLOOD SPECIMENOrdering Facility: [facility] Address: [address] [place] [address] Performed By: #### A LLBG ####[facility] [id number] [place] [address] [place] O2 THERAPY VENT=Ventilator Normal [facility] Comment on above: Order Comment: Speci men Type: ARTERIAL BLOOD SPECIMENOrdering Facility: [facility] Address: [address] [place] [address] Performed By: #### A LLBG ####[facility] LABIA [id number] [place] [address] [place] Oxygen (Bld) [Partial pressure] 165 mm Hg High 85-95 [facility] Comment on above: Order Comment: Speci men Type: ARTERIAL BLOOD SPECIMENOrdering Facility: [facility] Address: [address] [place] [address] Performed By: #### A LLBG ####[facility] [id number] [address] [address] [place] Oxygen adjusted to patient's actual temperature (Bld) [Partial pressure] 162 mmHg High 85-95 [facility] Comment on above: Order Comment: Speci men Type: ARTERIAL BLOOD SPECIMENOrdering Facility: [facility] Address: [address] [place] [id number] Performed By: #### A LLBG ####[facility] [id number] [address] [address] [place] Oxyhemoglobin (BldA) [Mass fraction] 98 % Normal 95-98 [facility] Comment on above: Order Comment: Speci men Type: ARTERIAL BLOOD SPECIMENOrdering Facility: [facility] Address: [address] [place] [address] Performed By: #### A LLBG ####[facility] [id number] [place] [id number] [place] pH (Bld) 7.39 [pH] Normal 7.35-7.45 [facility] Comment on above: Order Comment: Speci men Type: ARTERIAL BLOOD SPECIMENOrdering Facility: [facility] Address: [address] [place] [address] Performed By: #### A LLBG ####[facility] [id number] [place] [address] [place] pH adjusted to patient's actual temperature (Bld) 7.40 Normal 7.35-7.45 [facility] Comment on above: Order Comment: Speci men Type: ARTERIAL BLOOD SPECIMENOrdering Facility: [facility] Address: [address] [place] [address] Performed By: #### A LLBG ####[facility] [id number] [place] [address] [place] PO2 / FIO2 RATIO 413 mmHg Normal >300 [facility] Comment on above: Order Comment: Speci men Type: ARTERIAL BLOOD SPECIMENOrdering Facility: [facility] Address: [address] [place] [address] Performed By: #### A LLBG ####[facility]CL[facility] [id number] [place] [address] [place] Potassium [Moles/Vol] 3.9 mmol/L Normal 3.5-5.0 [facility] Comment on above: Order Comment: Speci men Type: ARTERIAL BLOOD SPECIMENOrdering Facility: [facility] Address: [address] [place] [address] Performed By: #### A LLBG ####[facility]CL[facility] [id number] [place] [address] [place] Sodium [Moles/Vol] 138 mmol/L Normal 136-144 [facility] Comment on above: Order Comment: Speci men Type: ARTERIAL BLOOD SPECIMENOrdering Facility: [facility] Address: [address] [place] [address] Performed By: #### A LLBG ####[facility] LABIA [id number] [place] [address] [place] Base deficit (BldA) [Moles/Vol] -6 mmol/L Low -2-0 [facility] Comment on above: Order Comment: Speci men Type: ARTERIAL BLOOD SPECIMENOrdering Facility: [facility] Address: [address] [place] [address] Performed By: #### A LLBG ####[facility] [id number] [place] [address] [place] Calcium.ionized (Bld) [Mass/Vol] 1.15 mmol/L Normal 1.08-1.30 [facility] Comment on above: Order Comment: Speci men Type: ARTERIAL BLOOD SPECIMENOrdering Facility: [facility] Address: [address] [place] [address] Performed By: #### A LLBG ####[facility]CL[facility] [id number] [place] [address] [place] Calcium.ionized adjusted to pH 7.4 (BldA) [Moles/Vol] 1.10 mmol/L Normal 1.08-1.30 [facility] Comment on above: Order Comment: Speci men Type: ARTERIAL BLOOD SPECIMENOrdering Facility: [facility] Address: [address] [place] [address] Performed By: #### A LLBG ####[facility]CL[facility] [id number] [place] [address] [place] Carboxyhemoglobin (BldA) [Mass fraction] 1.3 % Normal 0.0-2.0 [facility] Comment on above: Order Comment: Speci men Type: ARTERIAL BLOOD SPECIMENOrdering Facility: [facility] Address: [address] [place] [address] Result Comment: Carb oxyhemoglobin Reference Range for Smokers: 2.0-8.0% Performed By: #### A LLBG ####[facility] [id number] [place] [address] [place] CO2 (Bld) [Partial pressure] 39 mm Hg Normal 36-46 [facility] Comment on above: Order Comment: Speci men Type: ARTERIAL BLOOD SPECIMENOrdering Facility: [facility] Address: [address] [place] [address] Performed By: #### A LLBG ####[facility]CL[facility] [id number] [place] [address] [place] CO2 adjusted to patient's actual temperature (Bld) [Partial pressure] 39 mmHg Normal 36-46 [facility] Comment on above: Order Comment: Speci men Type: ARTERIAL BLOOD SPECIMENOrdering Facility: [facility] Address: [address] [place] [address] Performed By: #### A LLBG ####[facility]CL[facility] [id number] [place] [address] [place] Glucose [Mass/Vol] 147 mg/dL High 60-105 [facility] Comment on above: Order Comment: Speci men Type: ARTERIAL BLOOD SPECIMENOrdering Facility: [facility] Address: [address] [place] [address] Performed By: #### A LLBG ####[facility]CL[facility] [id number] [place] [address] [place] HCO3 (Bld) [Moles/Vol] 19 mmol/L Low 22-26 [facility] Comment on above: Order Comment: Speci men Type: ARTERIAL BLOOD SPECIMENOrdering Facility: [facility] Address: [address] [place] [address] Performed By: #### A LLBG ####[facility]CL[facility] [id number] [place] [address] [place] Hematocrit (Bld) [Volume fraction] 31.3 % Low 36.0-46.0 [facility] Comment on above: Order Comment: Speci men Type: ARTERIAL BLOOD SPECIMENOrdering Facility: [facility] Address: [address] [place] [address] Performed By: #### A LLBG ####[facility]CL[facility] [id number] [place] [address] [place] Hemoglobin (Bld) [Mass/Vol] 10.1 g/dL Low 11.5-15.5 [facility] Comment on above: Order Comment: Speci men Type: ARTERIAL BLOOD SPECIMENOrdering Facility: [facility] Address: [address] [place] [address] Performed By: #### A LLBG ####[facility]CL[facility] [id number] [place] [address] [place] Lactate [Moles/Vol] 4.9 mmol/L High 0.5-2.2 [facility] Comment on above: Order Comment: Speci men Type: ARTERIAL BLOOD SPECIMENOrdering Facility: [facility] Address: [address] [place] [address] Performed By: #### A LLBG ####[facility]CL[facility] [id number] [place] [address] [place] Methemoglobin (Bld) [Mass fraction] 2.0 % High 0.0-1.5 [facility] Comment on above: Order Comment: Speci men Type: ARTERIAL BLOOD SPECIMENOrdering Facility: [facility] Address: [address] [place] [address] Performed By: #### A LLBG ####[facility]CL[facility] [id number] [place] [address] [place] Oxygen (Bld) [Partial pressure] 192 mm Hg High 85-95 [facility] Comment on above: Order Comment: Speci men Type: ARTERIAL BLOOD SPECIMENOrdering Facility: [facility] Address: [address] [place] [address] Performed By: #### A LLBG ####[facility]CL[facility] [id number] [place] [address] [place] Oxygen adjusted to patient's actual temperature (Bld) [Partial pressure] 192 mmHg High 85-95 [facility] Comment on above: Order Comment: Speci men Type: ARTERIAL BLOOD SPECIMENOrdering Facility: [facility] Address: [address] [place] [address] Performed By: #### A LLBG ####[facility]CL[facility] [id number] [place] [id number] [place] Oxyhemoglobin (BldA) [Mass fraction] 96 % Normal 95-98 [facility] Comment on above: Order Comment: Speci men Type: ARTERIAL BLOOD SPECIMENOrdering Facility: [facility] Address: [address] [place] [address] Performed By: #### A LLBG ####[facility]CL[facility] [id number] [place] [address] [place] pH (Bld) 7.31 [pH] Low 7.35-7.45 [facility] Comment on above: Order Comment: Speci men Type: ARTERIAL BLOOD SPECIMENOrdering Facility: [facility] Address: [address] [place] [address] Performed By: #### A LLBG ####[facility]CL[facility] [id number] [place] [address] [place] pH adjusted to patient's actual temperature (Bld) 7.31 Low 7.35-7.45 [facility] Comment on above: Order Comment: Speci men Type: ARTERIAL BLOOD SPECIMENOrdering Facility: [facility] Address: [address] [place] [address] Performed By: #### A LLBG ####[facility]CL[facility] [id number] [place] [address] [place] Potassium [Moles/Vol] 4.0 mmol/L Normal 3.5-5.0 [facility] Comment on above: Order Comment: Speci men Type: ARTERIAL BLOOD SPECIMENOrdering Facility: [facility] Address: [address] [place] [address] Performed By: #### A LLBG ####[facility]CL[facility] [id number] [place] [address] [place] Sodium [Moles/Vol] 135 mmol/L Low 136-144 [facility] Comment on above: Order Comment: Speci men Type: ARTERIAL BLOOD SPECIMENOrdering Facility: [facility] Address: [address] [place] [address] Performed By: #### A LLBG ####[facility]CL[facility] [id number] [place] [address] [place] Base deficit (BldA) [Moles/Vol] -6 mmol/L Low -2-0 [facility] Comment on above: Order Comment: Speci men Type: ARTERIAL BLOOD SPECIMENOrdering Facility: [facility] Address: [address] [place] [address] Performed By: #### A LLBG ####[facility] [id number] [place] [address] [place] Calcium.ionized (Bld) [Mass/Vol] 1.15 mmol/L Normal 1.08-1.30 [facility] Comment on above: Order Comment: Speci men Type: ARTERIAL BLOOD SPECIMENOrdering Facility: [facility] Address: [address] [place] [address] Performed By: #### A LLBG ####[facility] [id number] [place] [address] [place] Calcium.ionized adjusted to pH 7.4 (BldA) [Moles/Vol] 1.10 mmol/L Normal 1.08-1.30 [facility] Comment on above: Order Comment: Speci men Type: ARTERIAL BLOOD SPECIMENOrdering Facility: [facility] Address: [address] [place] [address] Performed By: #### A LLBG ####[facility] [id number] [place] [address] [place] Carboxyhemoglobin (BldA) [Mass fraction] 1.3 % Normal 0.0-2.0 [facility] Comment on above: Order Comment: Speci men Type: ARTERIAL BLOOD SPECIMENOrdering Facility: [facility] Address: [address] [place] [address] Result Comment: Carb oxyhemoglobin Reference Range for Smokers: 2.0-8.0% Performed By: #### A LLBG ####[facility] [id number] [place] [address] [place] CO2 (Bld) [Partial pressure] 40 mm Hg Normal 36-46 [facility] Comment on above: Order Comment: Speci men Type: ARTERIAL BLOOD SPECIMENOrdering Facility: [facility] Address: [address] [place] [address] Performed By: #### A LLBG ####[facility]CL[facility] [id number] [place] [address] [place] CO2 adjusted to patient's actual temperature (Bld) [Partial pressure] 40 mmHg Normal 36-46 [facility] Comment on above: Order Comment: Speci men Type: ARTERIAL BLOOD SPECIMENOrdering Facility: [facility] Address: [address] [place] [address] Performed By: #### A LLBG ####[facility]CL[facility] [id number] [place] [address] [place] Glucose [Mass/Vol] 183 mg/dL High 60-105 [facility] Comment on above: Order Comment: Speci men Type: ARTERIAL BLOOD SPECIMENOrdering Facility: [facility] Address: [address] [place] [address] Performed By: #### A LLBG ####[facility]CL[facility] [id number] [place] [address] [place] HCO3 (Bld) [Moles/Vol] 19 mmol/L Low 22-26 [facility] Comment on above: Order Comment: Speci men Type: ARTERIAL BLOOD SPECIMENOrdering Facility: [facility] Address: [address] [place] [address] Performed By: #### A LLBG ####[facility] [id number] [place] [address] [place] Hematocrit (Bld) [Volume fraction] 30.9 % Low 36.0-46.0 [facility] Comment on above: Order Comment: Speci men Type: ARTERIAL BLOOD SPECIMENOrdering Facility: [facility] Address: [address] [place] [address] Performed By: #### A LLBG ####[facility] [id number] [place] [address] [place] Hemoglobin (Bld) [Mass/Vol] 10.0 g/dL Low 11.5-15.5 [facility] Comment on above: Order Comment: Speci men Type: ARTERIAL BLOOD SPECIMENOrdering Facility: [facility] Address: [address] [place] [address] Performed By: #### A LLBG ####[facility] LABIA [id number] [place] [address] [place] Lactate [Moles/Vol] 4.6 mmol/L High 0.5-2.2 [facility] Comment on above: Order Comment: Speci men Type: ARTERIAL BLOOD SPECIMENOrdering Facility: [facility] Address: [address] [place] [address] Performed By: #### A LLBG ####[facility] LABIA [id number] [place] [address] [place] Methemoglobin (Bld) [Mass fraction] 2.0 % High 0.0-1.5 [facility] Comment on above: Order Comment: Speci men Type: ARTERIAL BLOOD SPECIMENOrdering Facility: [facility] Address: [address] [place] [address] Performed By: #### A LLBG ####[facility] [id number] [place] [address] [place] Oxygen (Bld) [Partial pressure] 278 mm Hg High 85-95 [facility] Comment on above: Order Comment: Speci men Type: ARTERIAL BLOOD SPECIMENOrdering Facility: [facility] Address: [address] [place] [address] Performed By: #### A LLBG ####[facility] LABIA [id number] [place] [id number] [place] Oxygen adjusted to patient's actual temperature (Bld) [Partial pressure] 278 mmHg High 85-95 [facility] Comment on above: Order Comment: Speci men Type: ARTERIAL BLOOD SPECIMENOrdering Facility: [facility] Address: [address] [place] [address] Performed By: #### A LLBG ####[facility]CL[facility] [id number] [place] [address] [place] Oxyhemoglobin (BldA) [Mass fraction] 96 % Normal 95-98 [facility] Comment on above: Order Comment: Speci men Type: ARTERIAL BLOOD SPECIMENOrdering Facility: [facility] Address: [address] [place] [address] Performed By: #### A LLBG ####[facility] [id number] [place] [address] [place] pH (Bld) 7.31 [pH] Low 7.35-7.45 [facility] Comment on above: Order Comment: Speci men Type: ARTERIAL BLOOD SPECIMENOrdering Facility: [facility] Address: [address] [place] [address] Performed By: #### A LLBG ####[facility] [id number] [place] [address] [place] pH adjusted to patient's actual temperature (Bld) 7.31 Low 7.35-7.45 [facility] Comment on above: Order Comment: Speci men Type: ARTERIAL BLOOD SPECIMENOrdering Facility: [facility] Address: [address] [place] [address] Performed By: #### A LLBG ####[facility] [id number] [place] [address] [place] Potassium [Moles/Vol] 3.4 mmol/L Low 3.5-5.0 [facility] Comment on above: Order Comment: Speci men Type: ARTERIAL BLOOD SPECIMENOrdering Facility: [facility] Address: [address] [place] [address] Performed By: #### A LLBG ####[facility] [id number] [place] [address] [place] Sodium [Moles/Vol] 133 mmol/L Low 136-144 [facility] Comment on above: Order Comment: Speci men Type: ARTERIAL BLOOD SPECIMENOrdering Facility: [facility] Address: [address] [place] [address] Performed By: #### A LLBG ####[facility] [id number] [place] [address] [place] Base deficit (BldA) [Moles/Vol] -3 mmol/L Low -2-0 [facility] Comment on above: Order Comment: Speci men Type: ARTERIAL BLOOD SPECIMENOrdering Facility: [facility] Address: [address] [place] [address] Performed By: #### A LLBG ####[facility] [id number] [place] [address] [place] Calcium.ionized (Bld) [Mass/Vol] 1.10 mmol/L Normal 1.08-1.30 [facility] Comment on above: Order Comment: Speci men Type: ARTERIAL BLOOD SPECIMENOrdering Facility: [facility] Address: [address] [place] [address] Performed By: #### A LLBG ####[facility] [id number] [place] [address] [place] Calcium.ionized adjusted to pH 7.4 (BldA) [Moles/Vol] 1.08 mmol/L Normal 1.08-1.30 [facility] Comment on above: Order Comment: Speci men Type: ARTERIAL BLOOD SPECIMENOrdering Facility: [facility] Address: [address] [place] [address] Performed By: #### A LLBG ####[facility] [id number] [place] [address] [place] Carboxyhemoglobin (BldA) [Mass fraction] 1.5 % Normal 0.0-2.0 [facility] Comment on above: Order Comment: Speci men Type: ARTERIAL BLOOD SPECIMENOrdering Facility: [facility] Address: [address] [place] [address] Result Comment: Carb oxyhemoglobin Reference Range for Smokers: 2.0-8.0% Performed By: #### A LLBG ####[facility] [id number] [place] [address] [place] CO2 (Bld) [Partial pressure] 38 mm Hg Normal 36-46 [facility] Comment on above: Order Comment: Speci men Type: ARTERIAL BLOOD SPECIMENOrdering Facility: [facility] Address: [address] [place] [address] Performed By: #### A LLBG ####[facility] [id number] [place] [address] [place] CO2 adjusted to patient's actual temperature (Bld) [Partial pressure] 38 mmHg Normal 36-46 [facility] Comment on above: Order Comment: Speci men Type: ARTERIAL BLOOD SPECIMENOrdering Facility: [facility] Address: [address] [place] [address] Performed By: #### A LLBG ####[facility] [id number] [place] [address] [place] Glucose [Mass/Vol] 224 mg/dL High 60-105 [facility] Comment on above: Order Comment: Speci men Type: ARTERIAL BLOOD SPECIMENOrdering Facility: [facility] Address: [address] [place] [address] Performed By: #### A LLBG ####[facility] [id number] [place] [address] [place] HCO3 (Bld) [Moles/Vol] 22 mmol/L Normal 22-26 [facility] Comment on above: Order Comment: Speci men Type: ARTERIAL BLOOD SPECIMENOrdering Facility: [facility] Address: [address] [place] [address] Performed By: #### A LLBG ####[facility] [id number] [place] [address] [place] Hematocrit (Bld) [Volume fraction] 29.8 % Low 36.0-46.0 [facility] Comment on above: Order Comment: Speci men Type: ARTERIAL BLOOD SPECIMENOrdering Facility: [facility] Address: [address] [place] [address] Performed By: #### A LLBG ####[facility] [id number] [place] [address] [place] Hemoglobin (Bld) [Mass/Vol] 9.6 g/dL Low 11.5-15.5 [facility] Comment on above: Order Comment: Speci men Type: ARTERIAL BLOOD SPECIMENOrdering Facility: [facility] Address: [address] [place] [address] Performed By: #### A LLBG ####[facility] [id number] [place] [address] [place] Lactate [Moles/Vol] 2.2 mmol/L Normal 0.5-2.2 [facility] Comment on above: Order Comment: Speci men Type: ARTERIAL BLOOD SPECIMENOrdering Facility: [facility] Address: [address] [place] [address] Performed By: #### A LLBG ####[facility] [id number] [place] [address] [place] Methemoglobin (Bld) [Mass fraction] 1.1 % Normal 0.0-1.5 [facility] Comment on above: Order Comment: Speci men Type: ARTERIAL BLOOD SPECIMENOrdering Facility: [facility] Address: [address] [place] [address] Performed By: #### A LLBG ####[facility] [id number] [place] [address] [place] Oxygen (Bld) [Partial pressure] 323 mm Hg High 85-95 [facility] Comment on above: Order Comment: Speci men Type: ARTERIAL BLOOD SPECIMENOrdering Facility: [facility] Address: [address] [place] [address] Performed By: #### A LLBG ####[facility] [id number] [place] [address] [place] Oxygen adjusted to patient's actual temperature (Bld) [Partial pressure] 323 mmHg High 85-95 [facility] Comment on above: Order Comment: Speci men Type: ARTERIAL BLOOD SPECIMENOrdering Facility: [facility] Address: [address] [place] [address] Performed By: #### A LLBG ####[facility] [id number] [place] [address] [place] Oxyhemoglobin (BldA) [Mass fraction] 98 % Normal 95-98 [facility] Comment on above: Order Comment: Speci men Type: ARTERIAL BLOOD SPECIMENOrdering Facility: [facility] Address: [address] [place] [address] Performed By: #### A LLBG ####[facility] [id number] [place] [address] [place] pH (Bld) 7.37 [pH] Normal 7.35-7.45 [facility] Comment on above: Order Comment: Speci men Type: ARTERIAL BLOOD SPECIMENOrdering Facility: [facility] Address: [address] [place] [address] Performed By: #### A LLBG ####[facility] [id number] [place] [address] [place] pH adjusted to patient's actual temperature (Bld) 7.37 Normal 7.35-7.45 [facility] Comment on above: Order Comment: Speci men Type: ARTERIAL BLOOD SPECIMENOrdering Facility: [facility] Address: [address] [place] [address] Performed By: #### A LLBG ####[facility] [id number] [place] [address] [place] Potassium [Moles/Vol] 3.7 mmol/L Normal 3.5-5.0 [facility] Comment on above: Order Comment: Speci men Type: ARTERIAL BLOOD SPECIMENOrdering Facility: [facility] Address: [address] [place] [address] Performed By: #### A LLBG ####[facility] [id number] [place] [address] [place] Sodium [Moles/Vol] 132 mmol/L Low 136-144 [facility] Comment on above: Order Comment: Speci men Type: ARTERIAL BLOOD SPECIMENOrdering Facility: [facility] Address: [address] [place] [address] Performed By: #### A LLBG ####[facility] [id number] [place] [address] [place] Base deficit (BldA) [Moles/Vol] -5 mmol/L Low -2-0 [facility] Comment on above: Order Comment: Speci men Type: ARTERIAL BLOOD SPECIMENOrdering Facility: [facility] Address: [address] [place] [address] Performed By: #### A LLBG ####[facility] [id number] [place] [address] [place] Calcium.ionized (Bld) [Mass/Vol] 1.11 mmol/L Normal 1.08-1.30 [facility] Comment on above: Order Comment: Speci men Type: ARTERIAL BLOOD SPECIMENOrdering Facility: [facility] Address: [address] [place] [address] Performed By: #### A LLBG ####[facility] [id number] [place] [address] [place] Calcium.ionized adjusted to pH 7.4 (BldA) [Moles/Vol] 1.04 mmol/L Low 1.08-1.30 [facility] Comment on above: Order Comment: Speci men Type: ARTERIAL BLOOD SPECIMENOrdering Facility: [facility] Address: [address] [place] [address] Performed By: #### A LLBG ####[facility] [id number] [place] [address] [place] Carboxyhemoglobin (BldA) [Mass fraction] 1.1 % Normal 0.0-2.0 [facility] Comment on above: Order Comment: Speci men Type: ARTERIAL BLOOD SPECIMENOrdering Facility: [facility] Address: [address] [place] [address] Result Comment: Carb oxyhemoglobin Reference Range for Smokers: 2.0-8.0% Performed By: #### A LLBG ####[facility] [id number] [place] [address] [place] CO2 (Bld) [Partial pressure] 48 mm Hg High 36-46 [facility] Comment on above: Order Comment: Speci men Type: ARTERIAL BLOOD SPECIMENOrdering Facility: [facility] Address: [address] [place] [address] Performed By: #### A LLBG ####[facility] [id number] [place] [address] [place] CO2 adjusted to patient's actual temperature (Bld) [Partial pressure] 48 mmHg High 36-46 [facility] Comment on above: Order Comment: Speci men Type: ARTERIAL BLOOD SPECIMENOrdering Facility: [facility] Address: [address] [place] [address] Performed By: #### A LLBG ####[facility] [id number] [place] [address] [place] Glucose [Mass/Vol] 217 mg/dL High 60-105 [facility] Comment on above: Order Comment: Speci men Type: ARTERIAL BLOOD SPECIMENOrdering Facility: [facility] Address: [address] [place] [address] Performed By: #### A LLBG ####[facility] [id number] [place] [address] [place] HCO3 (Bld) [Moles/Vol] 22 mmol/L Normal 22-26 [facility] Comment on above: Order Comment: Speci men Type: ARTERIAL BLOOD SPECIMENOrdering Facility: [facility] Address: [address] [place] [address] Performed By: #### A LLBG ####[facility] [id number] [place] [address] [place] Hematocrit (Bld) [Volume fraction] 30.5 % Low 36.0-46.0 [facility] Comment on above: Order Comment: Speci men Type: ARTERIAL BLOOD SPECIMENOrdering Facility: [facility] Address: [address] [place] [address] Performed By: #### A LLBG ####[facility] [id number] [place] [address] [place] Hemoglobin (Bld) [Mass/Vol] 9.9 g/dL Low 11.5-15.5 [facility] Comment on above: Order Comment: Speci men Type: ARTERIAL BLOOD SPECIMENOrdering Facility: [facility] Address: [address] [place] [address] Performed By: #### A LLBG ####[facility] [id number] [place] [address] [place] Lactate [Moles/Vol] 1.9 mmol/L Normal 0.5-2.2 [facility] Comment on above: Order Comment: Speci men Type: ARTERIAL BLOOD SPECIMENOrdering Facility: [facility] Address: [address] [place] [address] Performed By: #### A LLBG ####[facility] [id number] [place] [address] [place] Order Comment: Speci men Type: VENOUS BLOOD SPECIMENOrdering Facility: [facility] Address: [address] [place] [address] Performed By: #### 2 4344-4 ####[facility] [id number] [place] [address] [place] Methemoglobin (Bld) [Mass fraction] 1.8 % High 0.0-1.5 [facility] Comment on above: Order Comment: Speci men Type: ARTERIAL BLOOD SPECIMENOrdering Facility: [facility] Address: [address] [place] [address] Performed By: #### A LLBG ####[facility] [id number] [place] [address] [place] Oxygen (Bld) [Partial pressure] 378 mm Hg High 85-95 [facility] Comment on above: Order Comment: Speci men Type: ARTERIAL BLOOD SPECIMENOrdering Facility: [facility] Address: [address] [place], [place] [address] Performed By: #### A LLBG ####[facility] [id number] [place] [id number] [place] Oxygen adjusted to patient's actual temperature (Bld) [Partial pressure] 378 mmHg High 85-95 [facility] Comment on above: Order Comment: Speci men Type: ARTERIAL BLOOD SPECIMENOrdering Facility: [facility] Address: [address] [place], [place] [address] Performed By: #### A LLBG ####[facility] [id number] [place] [id number] [place] Oxyhemoglobin (BldA) [Mass fraction] 97 % Normal 95-98 [facility] Comment on above: Order Comment: Speci men Type: ARTERIAL BLOOD SPECIMENOrdering Facility: [facility] Address: [address] [place] [address] Performed By: #### A LLBG ####[facility] [id number] [place] [address] [place] pH (Bld) 7.28 [pH] Low 7.35-7.45 [facility] Comment on above: Order Comment: Speci men Type: ARTERIAL BLOOD SPECIMENOrdering Facility: [facility] Address: [address] [place] [address] Performed By: #### A LLBG ####[facility] [id number] [place] [address] [place] pH adjusted to patient's actual temperature (Bld) 7.28 Low 7.35-7.45 [facility] Comment on above: Order Comment: Speci men Type: ARTERIAL BLOOD SPECIMENOrdering Facility: [facility] Address: [address] [place] [address] Performed By: #### A LLBG ####[facility] [id number] [place] [address] [place] Potassium [Moles/Vol] 3.8 mmol/L Normal 3.5-5.0 [facility] Comment on above: Order Comment: Speci men Type: ARTERIAL BLOOD SPECIMENOrdering Facility: [facility] Address: [address] [place] [address] Performed By: #### A LLBG ####[facility] [id number] [place] [address] [place] Order Comment: Speci men Type: VENOUS BLOOD SPECIMENOrdering Facility: [facility] Address: [address] [place] [address] Performed By: #### 2 4344-4 ####[facility] [id number] [place] [address] [place] Sodium [Moles/Vol] 133 mmol/L Low 136-144 [facility] Comment on above: Order Comment: Speci men Type: ARTERIAL BLOOD SPECIMENOrdering Facility: [facility] Address: [address] [place] [address] Performed By: #### A LLBG ####[facility] [id number] [place] [address] [place] Order Comment: Speci men Type: VENOUS BLOOD SPECIMENOrdering Facility: [facility] Address: [address] [place] [address] Performed By: #### 2 4344-4 ####[facility] [id number] [place] [address] [place] ARTERIAL BLOOD GASES WITH IO NIZED MAGNESIUMon 03-24-2024 Base excess Calc (Bld) [Moles/Vol] 0 mmol/L Normal 0-2 [facility] Comment on above: Order Comment: Speci men Type: ARTERIAL BLOOD SPECIMENOrdering Facility: [facility] Address: [address] [place] [address] Performed By: #### A LLMG ####[facility] [id number] [place] [address] [place] Calcium.ionized (Bld) [Mass/Vol] 1.32 mmol/L High 1.08-1.30 [facility] Comment on above: Order Comment: Speci men Type: ARTERIAL BLOOD SPECIMENOrdering Facility: [facility] Address: [address] [place] [address] Performed By: #### A LLMG ####[facility] [id number] [place] [address] [place] Calcium.ionized adjusted to pH 7.4 (BldA) [Moles/Vol] 1.32 mmol/L High 1.08-1.30 [facility] Comment on above: Order Comment: Speci men Type: ARTERIAL BLOOD SPECIMENOrdering Facility: [facility] Address: [address] [place] [address] Performed By: #### A LLMG ####[facility] [id number] [place] [address] [place] Carboxyhemoglobin (BldA) [Mass fraction] 1.3 % Normal 0.0-2.0 [facility] Comment on above: Order Comment: Speci men Type: ARTERIAL BLOOD SPECIMENOrdering Facility: [facility] Address: [address] [place] [address] Result Comment: Carb oxyhemoglobin Reference Range for Smokers: 2.0-8.0% Performed By: #### A LLMG ####[facility] [id number] [place] [address] [place] CO2 (Bld) [Partial pressure] 40 mm Hg Normal 36-46 [facility] Comment on above: Order Comment: Speci men Type: ARTERIAL BLOOD SPECIMENOrdering Facility: [facility] Address: [address] [place] [address] Performed By: #### A LLMG ####[facility] [id number] [place] [address] [place] CO2 adjusted to patient's actual temperature (Bld) [Partial pressure] 40 mmHg Normal 36-46 [facility] Comment on above: Order Comment: Speci men Type: ARTERIAL BLOOD SPECIMENOrdering Facility: [facility] Address: [address] [place] [address] Performed By: #### A LLMG ####[facility] [id number] [place] [address] [place] Glucose [Mass/Vol] 118 mg/dL High 60-105 [facility] Comment on above: Order Comment: Speci men Type: ARTERIAL BLOOD SPECIMENOrdering Facility: [facility] Address: [address] [place] [address] Performed By: #### A LLMG ####[facility] [id number] [place] [address] [place] HCO3 (Bld) [Moles/Vol] 24 mmol/L Normal 22-26 [facility] Comment on above: Order Comment: Speci men Type: ARTERIAL BLOOD SPECIMENOrdering Facility: [facility] Address: [address] [place] [address] Performed By: #### A LLMG ####[facility] [id number] [place] [address] [place] Hematocrit (Bld) [Volume fraction] 40.6 % Normal 36.0-46.0 [facility] Comment on above: Order Comment: Speci men Type: ARTERIAL BLOOD SPECIMENOrdering Facility: [facility] Address: [address] [place] [address] Performed By: #### A LLMG ####[facility] [id number] [place] [address] [place] Hemoglobin (Bld) [Mass/Vol] 13.2 g/dL Normal 11.5-15.5 [facility] Comment on above: Order Comment: Speci men Type: ARTERIAL BLOOD SPECIMENOrdering Facility: [facility] Address: [address] [place] [address] Performed By: #### A LLMG ####[facility] [id number] [place] [address] [place] Lactate [Moles/Vol] 1.0 mmol/L Normal 0.5-2.2 [facility] Comment on above: Order Comment: Speci men Type: ARTERIAL BLOOD SPECIMENOrdering Facility: [facility] Address: [address] [place] [address] Performed By: #### A LLMG ####[facility] [id number] [place] [address] [place] Magnesium [Moles/Vol] 0.53 mmol/L Normal 0.45-0.60 [facility] Comment on above: Order Comment: Speci men Type: ARTERIAL BLOOD SPECIMENOrdering Facility: [facility] Address: [address] [place] [address] Performed By: #### A LLMG ####[facility] [id number] [place] [address] [place] Methemoglobin (Bld) [Mass fraction] 0.7 % Normal 0.0-1.5 [facility] Comment on above: Order Comment: Speci men Type: ARTERIAL BLOOD SPECIMENOrdering Facility: [facility] Address: [address] [place] [address] Performed By: #### A LLMG ####[facility] [id number] [place] [address] [place] Oxygen (Bld) [Partial pressure] 106 mm Hg High 85-95 [facility] Comment on above: Order Comment: Speci men Type: ARTERIAL BLOOD SPECIMENOrdering Facility: [facility] Address: [address] [place] [address] Performed By: #### A LLMG ####[facility] [id number] [place] [address] [place] Oxygen adjusted to patient's actual temperature (Bld) [Partial pressure] 106 mmHg High 85-95 [facility] Comment on above: Order Comment: Speci men Type: ARTERIAL BLOOD SPECIMENOrdering Facility: [facility] Address: [address] [place] [address] Performed By: #### A LLMG ####[facility] [id number] [place] [address] [place] Oxyhemoglobin (BldA) [Mass fraction] 97 % Normal 95-98 [facility] Comment on above: Order Comment: Speci men Type: ARTERIAL BLOOD SPECIMENOrdering Facility: [facility] Address: [address] [place] [address] Performed By: #### A LLMG ####[facility] [id number] [place] [address] [place] pH (Bld) 7.40 [pH] Normal 7.35-7.45 [facility] Comment on above: Order Comment: Speci men Type: ARTERIAL BLOOD SPECIMENOrdering Facility: [facility] Address: [address] [place] [address] Performed By: #### A LLMG ####[facility] [id number] [place] [address] [place] pH adjusted to patient's actual temperature (Bld) 7.40 Normal 7.35-7.45 [facility] Comment on above: Order Comment: Speci men Type: ARTERIAL BLOOD SPECIMENOrdering Facility: [facility] Address: [address] [place] [address] Performed By: #### A LLMG ####[facility] [id number] [place] [address] [place] Potassium [Moles/Vol] 3.9 mmol/L Normal 3.5-5.0 [facility] Comment on above: Order Comment: Speci men Type: ARTERIAL BLOOD SPECIMENOrdering Facility: [facility] Address: [address] [place] [address] Performed By: #### A LLMG ####[facility] [id number] [place] [address] [place] Sodium [Moles/Vol] 140 mmol/L Normal 136-144 [facility] Comment on above: Order Comment: Speci men Type: ARTERIAL BLOOD SPECIMENOrdering Facility: [facility] Address: [address] [place] [address] Performed By: #### A LLMG ####[facility] [id number] [place] [address] [place] ECG COMPLETEon 03-24-2024 ECG COMPLETE Normal [facility] Fibrinogen PPP-mCncon 2023 Fibrinogen Coag (PPP) [Mass/Vol] 202 mg/dL Normal 200-400 [facility] Comment on above: Order Comment: Speci men Type: BLOOD SPECIMENOrdering Facility: [facility] Address: [address] [place] [address] Performed By: #### 3 255-7 ####[facility] [id number] [place] [address] [place] Gas and Carbon monoxide pane l (BldV)on 03-24-2024 BASE DEFICIT, VENOUS -4 mmol/L Low -2-0 [facility] Comment on above: Order Comment: Speci men Type: VENOUS BLOOD SPECIMENOrdering Facility: [facility] Address: [address] [place] [address] Performed By: #### 2 4344-4 ####[facility] [id number] [place] [address] [place] Calcium.ionized (Bld) [Mass/Vol] 1.12 mmol/L Normal 1.08-1.30 [facility] Comment on above: Order Comment: Speci men Type: VENOUS BLOOD SPECIMENOrdering Facility: [facility] Address: [address] [place] [address] Performed By: #### 2 4344-4 ####[facility] [id number] [place] [address] [place] Calcium.ionized adjusted to pH 7.4 (BldA) [Moles/Vol] 1.02 mmol/L Low 1.08-1.30 [facility] Comment on above: Order Comment: Speci men Type: VENOUS BLOOD SPECIMENOrdering Facility: [facility] Address: [address] [place] [address] Performed By: #### 2 4344-4 ####[facility] [id number] [place] [address] [place] Carboxyhemoglobin (BldV) [Mass fraction] 0.4 % Normal 0.0-2.0 [facility] Comment on above: Order Comment: Speci men Type: VENOUS BLOOD SPECIMENOrdering Facility: [facility] Address: [address] [place] [address] Result Comment: Carb oxyhemoglobin Reference Range for Smokers: 2.0-8.0% Performed By: #### 2 4344-4 ####[facility] [id number] [place] [address] [place] CO2 (BldV) [Partial pressure] 57 mm[Hg] High 42-55 [facility] Comment on above: Order Comment: Speci men Type: VENOUS BLOOD SPECIMENOrdering Facility: [facility] Address: [address] [place] [address] Performed By: #### 2 4344-4 ####[facility] [id number] [place] [address] [place] CO2 adjusted to patient's actual temperature (BldV) [Partial pressure] 57 mmHg High 42-55 [facility] Comment on above: Order Comment: Speci men Type: VENOUS BLOOD SPECIMENOrdering Facility: [facility] Address: [address] [place] [address] Performed By: #### 2 4344-4 ####[facility] [id number] [place] [address] [place] Glucose [Mass/Vol] 218 mg/dL High 60-105 [facility] Comment on above: Order Comment: Speci men Type: VENOUS BLOOD SPECIMENOrdering Facility: [facility] Address: [address] [place] [address] Performed By: #### 2 4344-4 ####[facility] [id number] [place] [address] [place] HCO3 (Bld) [Moles/Vol] 23 mmol/L Low 24-28 [facility] Comment on above: Order Comment: Speci men Type: VENOUS BLOOD SPECIMENOrdering Facility: [facility] Address: [address] [place] [place] [address] Performed By: #### 2 4344-4 ####[facility] LABCL[facility] [id number] [place] [address] [place] Hematocrit (Bld) [Volume fraction] 31.1 % Low 36.0-46.0 [facility] Comment on above: Order Comment: Speci men Type: VENOUS BLOOD SPECIMENOrdering Facility: [facility] Address: [address] [place] [address] Performed By: #### 2 4344-4 ####[facility] LABIA [id number] [place] [address] [place] Hemoglobin (Bld) [Mass/Vol] 10.1 g/dL Low 11.5-15.5 [facility] Comment on above: Order Comment: Speci men Type: VENOUS BLOOD SPECIMENOrdering Facility: [facility] Address: [address] [place] [address] Performed By: #### 2 4344-4 ####[facility] LABIA [id number] [place] [address] [place] Methemoglobin (Bld) [Mass fraction] 1.2 % Normal 0.0-1.5 [facility] Comment on above: Order Comment: Speci men Type: VENOUS BLOOD SPECIMENOrdering Facility: [facility] Address: [address] [place] [address] Performed By: #### 2 4344-4 ####[facility] LABIA [id number] [place] [address] [place] Oxygen (BldV) [Partial pressure] 110 mm[Hg] High 35-45 [facility] Comment on above: Order Comment: Speci men Type: VENOUS BLOOD SPECIMENOrdering Facility: [facility] Address: [address] [place] [address] Performed By: #### 2 4344-4 ####[facility]CL[facility] [id number] [address] [address] [place] Oxygen adjusted to patient's actual temperature (BldV) [Partial pressure] 110 mmHg High 35-45 [facility] Comment on above: Order Comment: Speci men Type: VENOUS BLOOD SPECIMENOrdering Facility: [facility] Address: [address] [place] [address] Performed By: #### 2 4344-4 ####[facility]CL[facility] [id number] [place] [address] [place] Oxygen saturation in Venous blood 97 % High 60-85 [facility] Comment on above: Order Comment: Speci men Type: VENOUS BLOOD SPECIMENOrdering Facility: [facility] Address: [address] [place] [address] Performed By: #### 2 4344-4 ####[facility] [id number] [place] [address] [place] Oxyhemoglobin (BldV) [Mass fraction] 95 % High 60-85 [facility] Comment on above: Order Comment: Speci men Type: VENOUS BLOOD SPECIMENOrdering Facility: [facility] Address: [address] [place], [place] [address] Performed By: #### 2 4344-4 ####[facility] [id number] [place] [id number] [place] pH (BldV) 7.23 [pH] Low 7.32-7.42 [facility] Comment on above: Order Comment: Speci men Type: VENOUS BLOOD SPECIMENOrdering Facility: [facility] Address: [facility] [place] [id number] Performed By: #### 2 4344-4 ####[facility] [id number] [place] [address] [place] pH adjusted to patient's actual temperature (BldV) 7.23 Low 7.32-7.42 [facility] Comment on above: Order Comment: Speci men Type: VENOUS BLOOD SPECIMENOrdering Facility: [facility] Address: [address] [place] [address] Performed By: #### 2 4344-4 ####[facility] [id number] [place] [address] [place] INTRAOPERATIVE ECHO PREon INTRAOPERATIVE ECHO PRE Normal [facility] OPERATIVE NOon 03-24-2024 OPERATIVE NO Normal [facility] Platelets Auto (Bld) [#/Vol] on 03-24-2024 Platelets (Bld) [#/Vol] 106 10*3/uL Low 150-400 [facility] Comment on above: Order Comment: Speci men Type: BLOOD SPECIMENOrdering Facility: [facility] Address: [address] [place] [address] Result Comment: Resu lts checked and verified.No clot detected. Performed By: #### 7 77-3 ####[facility] [id number] [address] [place] SURGICAL PATHOLOGYon 024 CASE REPORT Normal [facility] Comment on above: Order Comment: Speci men Type: TISSUE SPECIMENOrdering Facility: [facility] Address: [address] [place] [address] Result Comment: Surg ica Pathology Report Case: [id number] Provider: Esme Arango MD Collected: 03/24/2024 11:00 AMOrdering Location: Admitting Received: 03/24/2024 02:59 PMPathologist: Nelsy Mahmood MDSpecimen: Heart, Mitral Valve Performed By: #### S ####[facility] [id number] [place] [address] [place] CLINICAL HISTORY Normal [facility] Comment on above: Order Comment: Speci men Type: TISSUE SPECIMENOrdering Facility: [facility] Address: [address] [place] [address] Result Comment: Pre- op diagnosis:Pre-operative cardiovascular examination [Z01.810]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] Performed By: #### S ####[facility]CL[facility] [id number] [place] [address] [place] DIAGNOSIS COMMENT Normal [facility] Comment on above: Order Comment: Speci men Type: TISSUE SPECIMENOrdering Facility: [facility] Address: [address] [place] [address] Performed By: #### S ####[facility]CL[facility] [id number] [place] [address] [place] FINAL DIAGNOSIS Normal [facility] Comment on above: Order Comment: Speci men Type: TISSUE SPECIMENOrdering Facility: [facility] Address: [address] [place] [address] Result Comment: A. M itral valve, partial excision:-Myxoid degeneration. See comment. Performed By: #### S ####[facility] [id number] [place] [address] [place] FINAL PERFORMING LAB Normal [facility] Comment on above: Order Comment: Speci men Type: TISSUE SPECIMENOrdering Facility: [facility] Address: [address] [place] [address] Result Comment: Diag nostic interpretation performed at [facility], [address] [place] [address] CLIA# [id number] Director: Urbano Posadas M.D. Performed By: #### S ####[facility] [id number] [place] [address] [place] GROSS DESCRIPTION Normal [facility] Comment on above: Order Comment: Speci men Type: TISSUE SPECIMENOrdering Facility: [facility] Address: [address] [place] [address] Result Comment: Félix gilliland, Mitral ValveReceived in formalin designated heart, mitral valve is a segment of atrioventricular valve which measures 1 cm along the free edge and 1.4 cm from the free edge to the base. On cut section it has a thickened gelatinous consistency. No calcification is identified. No vegetations or perforations are present. The chordae are unremarkable. Totally submitted in 1 cassette.Gross examination performed at [facility], [address] [place] [address] March 25, 2024 8:54 AM Performed By: #### S ####[facility] [id number] [place] [address] [place] THROMBOGRAPH HEPARINASE PANE [place] 03-24-2024 Clot angle after addition of heparinase TEG (Bld) [Angle] 81.4 degrees High 47.0-74.0 [facility] Comment on above: Order Comment: Speci men Type: BLOOD SPECIMENOrdering Facility: [facility] Address: [address] [place] [address] Performed By: #### T EGHPP ####[facility] [id number] [place] [address] [place] Clot Lysis 30 Min post maximum clot amplitude TEG (Bld) [Length fraction] 5.9 % Normal 0.0-8.0 [facility] Comment on above: Order Comment: Speci men Type: BLOOD SPECIMENOrdering Facility: [facility] Address: [address] [place] [address] Performed By: #### T EGHPP ####[facility] [id number] [place] [address] [place] Clotting time after addition of heparinase TEG (Bld) 3.4 minutes Low 4.0-10.0 [facility] Comment on above: Order Comment: Speci men Type: BLOOD SPECIMENOrdering Facility: [facility] Address: [address] [place] [address] Performed By: #### T EGHPP ####[facility]CL[facility] [id number] [place] [address] [place] Coagulation index TEG Qn (Bld) 2.7 Normal -4.6-3.2 [facility] Comment on above: Order Comment: Speci cassandra Type: BLOOD SPECIMENOrdering Facility: [facility] Address: [address] [place] [address] Result Comment: This test was developed, and its performance characteristics determined by the [facility] Department of Pathology and Laboratory Medicine. It has not been cleared or approved by the FDA. The [facility] Department of Pathology and Laboratory Medicine is regulated under CLIA as qualified to perform high-complexity testing. This test is used for clinical purposes. It should not be regarded as investigational or for research. Performed By: #### T EGHPP ####[facility] [id number] [place] [address] [place] Maximum clot firmness after addition of heparinase TEG (Bld) [Length] 56.0 mm Normal 51.0-75.0 [facility] Comment on above: Order Comment: Trina trujillo Type: BLOOD SPECIMENOrdering Facility: [facility] Address: [address] [place] [address] Performed By: #### T EGHPP ####[facility] LABIA [id number] [place] [address] [place] Thromboelastography after addtion of heparinase panel (Bld) Normal [facility] Comment on above: Order Comment: Trina trujillo Type: BLOOD SPECIMENOrdering Facility: [facility] Address: [address] [place] [address] Result Comment: A th romboelastograph (TEG) study was performed using a citrate-anticoagulated whole blood treated with heparinase to neutralize a heparin effect.The R value, a measure of coagulation function, is short. This indicates coagulation hyperfunction. This could be seen with high levels of coagulation factors, coagulation activation, or inadequate anticoagulation. The angle, a measure of fibrinogen function, is increased. This is indicative of increased fibrinogen concentration or function. The Maximal Amplitude (MA), a measure of platelet function, is within the normal range. The Ly30, a measure of fibrinolysis, is normal. This is indicative of normal fibrinolytic function. The coagulation index (CI), a measure of hemostasis function, is within the normal range. The CI is a calculated parameter based on the other TEG results.Viscoelastic testing is not intended for the monitoring of anticoagulation or antiplatelet medications or the diagnosis and/or management of platelet disorders and/or coagulopathies but may be useful for guiding blood product utilization in emergency and urgent (OR) circumstances when routine coagulation and cell blood counts are not available in a timely manner. Performed By: #### T EGHPP ####[facility] LABIA [id number] [place] [address] [place] XR CHEST 1V FRONTAL PORTon 1 05-25-2023 XR CHEST 1V FRONTAL PORT Normal [facility] CNPTOUTREACHon 03-20-2024 CNPTOUTREACH Normal [facility] CNCNPATEDon 03-04-2024 CNCNPATED Normal [facility] CNOVon 03-04-2024 CNOV Normal [facility] STAPHYLOCOCCUS AUREUS AND MR SA SCREEN, PCR, NASALon 03-04-2024 S. aureus and MRSA panel JIN+probe (Nose) Not detected Normal Not Detected [facility] Comment on above: Order Comment: Speci men Type: SWABOrdering Facility: [facility] Address: [address] [place] [address] Performed By: #### S APCR ####[facility] [id number] [place] [address] [place] CBC W Auto Differential pane l (Bld)on 03-03-2024 Basophils (Bld) [#/Vol] 0.05 10*3/uL Normal <0.11 [facility] Comment on above: Order Comment: Speci men Type: BLOOD SPECIMENOrdering Facility: [facility] Address: [address] [place] [address] Performed By: #### 5 7021-8 ####[facility]CL[facility] [id number] [place] [address] [place] Basophils/100 WBC (Bld) 0.5 % Normal [facility] Comment on above: Order Comment: Speci men Type: BLOOD SPECIMENOrdering Facility: [facility] Address: [address] [place] [address] Performed By: #### 5 7021-8 ####[facility]CL[facility] [id number] [place] [address] [place] Differential cell count method Nom (Bld) Auto Normal [facility] Comment on above: Order Comment: Speci men Type: BLOOD SPECIMENOrdering Facility: [facility] Address: [address] [place] [address] Performed By: #### 5 7021-8 ####[facility]CL[facility] [id number] [place] [address] [place] Eosinophils (Bld) [#/Vol] 0.11 10*3/uL Normal <0.46 [facility] Comment on above: Order Comment: Speci men Type: BLOOD SPECIMENOrdering Facility: [facility] Address: [address] [place] [address] Performed By: #### 5 7021-8 ####[facility] [id number] [place] [address] [place] Eosinophils/100 WBC (Bld) 1.2 % Normal [facility] Comment on above: Order Comment: Speci men Type: BLOOD SPECIMENOrdering Facility: [facility] Address: [address] [place] [address] Performed By: #### 5 7021-8 ####[facility] [id number] [place] [address] [place] Erythrocyte distribution width (RBC) [Ratio] 13.4 % Normal 11.5-15.0 [facility] Comment on above: Order Comment: Speci men Type: BLOOD SPECIMENOrdering Facility: [facility] Address: [address] [place] [address] Performed By: #### 5 7021-8 ####[facility]CL[facility] [id number] [place] [address] [place] Hematocrit (Bld) [Volume fraction] 42.0 % Normal 36.0-46.0 [facility] Comment on above: Order Comment: Speci men Type: BLOOD SPECIMENOrdering Facility: [facility] Address: [address] [place] [address] Performed By: #### 5 7021-8 ####[facility] [id number] [place] [address] [place] Hemoglobin (Bld) [Mass/Vol] 13.5 g/dL Normal 11.5-15.5 [facility] Comment on above: Order Comment: Speci men Type: BLOOD SPECIMENOrdering Facility: [facility] Address: [address] [place] [address] Performed By: #### 5 7021-8 ####[facility]CL[facility] [id number] [place] [address] [place] Immature granulocytes (Bld) [#/Vol] 0.03 10*3/uL Normal <0.10 [facility] Comment on above: Order Comment: Speci men Type: BLOOD SPECIMENOrdering Facility: [facility] Address: [address] [place] [address] Performed By: #### 5 7021-8 ####[facility]CL[facility] [id number] [place] [address] [place] Immature granulocytes/100 WBC (Bld) 0.3 % Normal [facility] Comment on above: Order Comment: Speci men Type: BLOOD SPECIMENOrdering Facility: [facility] Address: [address] [place] [address] Performed By: #### 5 7021-8 ####[facility] [id number] [place] [address] [place] Lymphocytes (Bld) [#/Vol] 1.60 10*3/uL Normal 1.00-4.00 [facility] Comment on above: Order Comment: Speci men Type: BLOOD SPECIMENOrdering Facility: [facility] Address: [address] [place] [address] Performed By: #### 5 7021-8 ####[facility] [id number] [place] [address] [place] Lymphocytes/100 WBC (Bld) 16.9 % Normal [facility] Comment on above: Order Comment: Speci men Type: BLOOD SPECIMENOrdering Facility: [facility] Address: [address] [place] [address] Performed By: #### 5 7021-8 ####[facility] [id number] [place] [address] [place] MCH (RBC) [Entitic mass] 29.9 pg Normal 26.0-34.0 [facility] Comment on above: Order Comment: Speci men Type: BLOOD SPECIMENOrdering Facility: [facility] Address: [address] [place] [address] Performed By: #### 5 7021-8 ####[facility] [id number] [place] [address] [place] MCHC (RBC) [Mass/Vol] 32.1 g/dL Normal 30.5-36.0 [facility] Comment on above: Order Comment: Speci men Type: BLOOD SPECIMENOrdering Facility: [facility] Address: [address] [place] [address] Performed By: #### 5 7021-8 ####[facility] [id number] [place] [address] [place] MCV (RBC) [Entitic vol] 92.9 fL Normal 80.0-100.0 [facility] Comment on above: Order Comment: Speci men Type: BLOOD SPECIMENOrdering Facility: [facility] Address: [address] [place] [address] Performed By: #### 5 7021-8 ####[facility] [id number] [place] [address] [place] Monocytes (Bld) [#/Vol] 0.60 10*3/uL Normal <0.87 [facility] Comment on above: Order Comment: Speci men Type: BLOOD SPECIMENOrdering Facility: [facility] Address: [address] [place] [address] Performed By: #### 5 7021-8 ####[facility] [id number] [place] [address] [place] Monocytes/100 WBC (Bld) 6.3 % Normal [facility] Comment on above: Order Comment: Speci men Type: BLOOD SPECIMENOrdering Facility: [facility] Address: [address] [place] [address] Performed By: #### 5 7021-8 ####[facility] [id number] [place] [address] [place] Neutrophils (Bld) [#/Vol] 7.07 10*3/uL Normal 1.45-7.50 [facility] Comment on above: Order Comment: Speci men Type: BLOOD SPECIMENOrdering Facility: [facility] Address: [address] [place] [address] Performed By: #### 5 7021-8 ####[facility] [id number] [place] [address] [place] Neutrophils/100 WBC (Bld) 74.8 % Normal [facility] Comment on above: Order Comment: Speci men Type: BLOOD SPECIMENOrdering Facility: [facility] Address: [address] [place] [address] Performed By: #### 5 7021-8 ####[facility] [id number] [place] [address] [place] Nucleated RBC (Bld) [#/Vol] 10*3/uL Normal <0.01 [facility] Comment on above: Order Comment: Speci men Type: BLOOD SPECIMENOrdering Facility: [facility] Address: [address] [place] [address] Performed By: #### 5 7021-8 ####[facility] [id number] [place] [address] [place] Nucleated RBC/100 WBC (Bld) [Ratio] 0.0 /100 WBC Normal [facility] Comment on above: Order Comment: Speci men Type: BLOOD SPECIMENOrdering Facility: [facility] Address: [address] [place] [address] Performed By: #### 5 7021-8 ####[facility] [id number] [place] [address] [place] Platelet mean volume (Bld) [Entitic vol] 12.4 fL Normal 9.0-12.7 [facility] Comment on above: Order Comment: Speci men Type: BLOOD SPECIMENOrdering Facility: [facility] Address: [address] [place] [address] Performed By: #### 5 7021-8 ####[facility] [id number] [place] [address] [place] Platelets (Bld) [#/Vol] 230 10*3/uL Normal 150-400 [facility] Comment on above: Order Comment: Speci men Type: BLOOD SPECIMENOrdering Facility: [facility] Address: [address] [place] [address] Performed By: #### 5 7021-8 ####[facility] [id number] [place] [address] [place] RBC (Bld) [#/Vol] 4.52 10*6/uL Normal 3.90-5.20 [facility] Comment on above: Order Comment: Speci men Type: BLOOD SPECIMENOrdering Facility: [facility] Address: [address] [place] [address] Performed By: #### 5 7021-8 ####[facility] [id number] [place] [address] [place] WBC (Bld) [#/Vol] 9.46 10*3/uL Normal 3.70-11.00 [facility] Comment on above: Order Comment: Speci men Type: BLOOD SPECIMENOrdering Facility: [facility] Address: [address] [place] [address] Performed By: #### 5 7021-8 ####[facility] [id number] [place] [address] [place] CNOVon 03-03-2024 CNOV Normal [facility] CNOV Normal [facility] CONFIRM BLOOD TYPEon 024 ABO A Normal [facility] Comment on above: Order Comment: Speci men Type: BLOOD SPECIMENOrdering Facility: [facility] Address: [address] [place] [address] Performed By: #### C ONABO ####[facility] BLOOD BANKCLIA [id number] [place] [address] [place] Rh Nom (Bld) Negative Normal [facility] Comment on above: Order Comment: Speci men Type: BLOOD SPECIMENOrdering Facility: [facility] Address: [address] [place] [address] Performed By: #### C ONABO ####[facility] BLOOD BANKCLIA [id number] [place] [address] [place] Comprehensive metabolic 2000 panelon 03-03-2024 Albumin [Mass/Vol] 4.4 g/dL Normal 3.9-4.9 [facility] Comment on above: Order Comment: Speci men Type: BLOOD SPECIMENOrdering Facility: [facility] Address: [address] [place] [id number] Performed By: #### 2 4323-8, 2531-0 ####[facility] [id number] [place] [id number] [place] ALP [Catalytic activity/Vol] 67 U/L Normal 34-123 [facility] Comment on above: Order Comment: Speci men Type: BLOOD SPECIMENOrdering Facility: [facility] Address: [address] [place], [place] [address] Performed By: #### 2 4323-8, 2531-0 ####[facility] [id number] [place] [address] [place] ALT [Catalytic activity/Vol] 10 U/L Normal 7-38 [facility] Comment on above: Order Comment: Speci men Type: BLOOD SPECIMENOrdering Facility: [facility] Address: [address] [place] [address] Performed By: #### 2 432-8, 2531-0 ####[facility] [id number] [place] [address] [place] Anion gap [Moles/Vol] 11 mmol/L Normal 8-15 [facility] Comment on above: Order Comment: Speci men Type: BLOOD SPECIMENOrdering Facility: [facility] Address: [address] [place], [place] [address] Performed By: #### 2 432-8, 253-0 ####[facility] [id number] [place] [id number] [place] AST [Catalytic activity/Vol] 15 U/L Normal 13-35 [facility] Comment on above: Order Comment: Speci men Type: BLOOD SPECIMENOrdering Facility: [facility] Address: [address] [place], [place] [address] Performed By: #### 2 4323-8, 2-0 ####[facility] LABCLIA [id number] [place] [id number] [place] Bilirubin [Mass/Vol] 0.5 mg/dL Normal 0.2-1.3 [facility] Comment on above: Order Comment: Speci men Type: BLOOD SPECIMENOrdering Facility: [facility] Address: [address] [place] [address] Performed By: #### 2 4323-8, 2531-0 ####[facility] LABCLIA [id number] [place] [address] [place] Calcium [Mass/Vol] 9.9 mg/dL Normal 8.5-10.2 [facility] Comment on above: Order Comment: Speci men Type: BLOOD SPECIMENOrdering Facility: [facility] Address: [address] [place] [address] Performed By: #### 2 432-8, 2531-0 ####[facility] LABIA [id number] [place] [address] [place] Chloride [Moles/Vol] 105 mmol/L Normal 98-107 [facility] Comment on above: Order Comment: Speci men Type: BLOOD SPECIMENOrdering Facility: [facility] Address: [address] [place] [address] Performed By: #### 2 4323-8, 2531-0 ####[facility] LABCLIA [id number] [place] [address] [place] CO2 [Moles/Vol] 26 mmol/L Normal 22-30 [facility] Comment on above: Order Comment: Speci men Type: BLOOD SPECIMENOrdering Facility: [facility] Address: [address] [place], [place] [address] Performed By: #### 2 4323-8, 2532-0 ####[facility] LABCLIA [id number] [place] [id number] [place] Creatinine [Mass/Vol] 0.96 mg/dL Normal 0.58-0.96 [facility] Comment on above: Order Comment: Trina trujillo Type: BLOOD SPECIMENOrdering Facility: [facility] Address: [address] [place] [address] Performed By: #### 2 4323-8, 2531-0 ####[facility] LABCLIA [id number] [place] [address] [place] Creatinine and Glomerular filtration rate.predicted panel (S/P/Bld) 60 mL/min/1.73m??? Normal >=60 [facility] Comment on above: Order Comment: Trina trujillo Type: BLOOD SPECIMENOrdering Facility: [facility] Address: [address] [place] [address] Result Comment: Lexus mated Glomerular Filtration Rate (eGFR) is calculated using the 2020 CKD-EPI creatinine equation. This equation utilizes serum creatinine, sex, and age as parameters. The creatinine assay has traceable calibration to isotope dilution-mass spectrometry. Refer to KDIGO guidelines for clinical interpretation. In patients with unstable renal function, e.g. those with acute kidney injury, the eGFR may not accurately reflect actual GFR. Performed By: #### 2 4323-8, 0 ####[facility]CL[facility] [id number] [place] [address] [place] Glucose [Mass/Vol] 91 mg/dL Normal 74-99 [facility] Comment on above: Order Comment: Trina trujillo Type: BLOOD SPECIMENOrdering Facility: [facility] Address: [address] [place] [address] Result Comment: The [place] Diabetes Association (ADA) provides guidance for cutoff values for fasting glucose and random glucose. The ADA defines fasting as no caloric intake for at least 8 hours. Fasting plasma glucose results between 100 to 125 mg/dL indicate increased risk for diabetes (prediabetes).Fasting plasma glucose results greater than or equal to 126 mg/dL meet the criteria for diagnosis of diabetes. In the absence of unequivocal hyperglycemia, results should be confirmed by repeat testing. In a patient with classic symptoms of hyperglycemia or hyperglycemic crisis, random plasma glucose results greater than or equal to 200 mg/dL meet the criteria for diagnosis of diabetes.Reference: Standards of Medical Care in Diabetes 2016, [place] Diabetes Association. Diabetes Care. 2016.39(Suppl 1). Performed By: #### 2 4323-8, ####[facility] [id number] [address] [address] [place] Potassium [Moles/Vol] 4.8 mmol/L Normal 3.7-5.1 [facility] Comment on above: Order Comment: Speci men Type: BLOOD SPECIMENOrdering Facility: [facility] Address: [address] [place] [id number] Performed By: #### 2 4328, ####[facility]CL[facility] [id number] [place] [address] [place] Protein [Mass/Vol] 6.7 g/dL Normal 6.3-8.0 [facility] Comment on above: Order Comment: Speci men Type: BLOOD SPECIMENOrdering Facility: [facility] Address: [address] [place] [id number] Performed By: #### 2 4328, ####[facility] LABIA [id number] [place] [address] [place] Sodium [Moles/Vol] 142 mmol/L Normal 136-144 [facility] Comment on above: Order Comment: Speci men Type: BLOOD SPECIMENOrdering Facility: [facility] Address: [address] [place] [address] Performed By: #### 2 432-8, 0 ####[facility] LABCL[facility] [id number] [address] [address] [place] Urea nitrogen [Mass/Vol] 20 mg/dL Normal 7-21 [facility] Comment on above: Order Comment: Speci men Type: BLOOD SPECIMENOrdering Facility: [facility] Address: [address] [place] [id number] Performed By: #### 2 4323-8, 2532-0 ####[facility]CL[facility] [id number] [place] [address] [place] ECG COMPLETEon 03-03-2024 ECG COMPLETE Normal [facility] LDH SerPl-cCncon 03-03-2024 LDH [Catalytic activity/Vol] 206 U/L Normal 135-214 [facility] Comment on above: Order Comment: Speci men Type: BLOOD SPECIMENOrdering Facility: [facility] Address: [address] [place] [address] Performed By: #### 2 4323-8, 253-0 ####[facility] LABIA [id number] [address] [place] PT panel Coag (PPP)on 2023 INR Coag (PPP) [Relative time] 1.0 {INR} Normal 0.9-1.3 [facility] Comment on above: Order Comment: Trina trujillo Type: BLOOD SPECIMENOrdering Facility: [facility] Address: [address] [place] [address] Result Comment: Sonia min K Antagonist (VKA) Therapeutic Range: INR 2 to 3 (Target INR of 2.5)Note: For patients treated with VKA drugs, such as warfarin, the [place] [employer] 2012 Guideline recommends a therapeutic INR range of 2 to 3 (target INR of 2.5). This recommendation includes high-risk patients with antiphospholipid syndrome with previous arterial or venous thromboembolism, current-generation mechanical or bioprosthetic aortic heart valve replacement.Note: Patients with mechanical aortic valve replacement and additional risk factors for thromboembolic events (atrial fibrillation, previous thromboembolism, LV dysfunction, hypercoagulable conditions) or an older generation mechanical AVR (i.e., ball in-Cage) or any mechanical MVR should have a INR therapeutic range of 2.5 to 3.5 (target INR of 3).Evert ARBOLEDA, et al. Chest 2012, 141:7S-47SNikhil RA, et al. JACC 2017, 70: 252-289 Performed By: #### 3 4528-0, 25027-9 ####[facility]CL[facility] [id number] [place] [address] [place] PT Coag (PPP) [Time] 10.5 s Normal 9.7-13.0 [facility] Comment on above: Order Comment: Speci men Type: BLOOD SPECIMENOrdering Facility: [facility] Address: [address] [place] [address] Performed By: #### 3 4528-0, 69236-5 ####[facility] LABCL[facility] [id number] [place] [address] [place] TYPE AND SCREEN,30 DAYon ABO A Normal [facility] Comment on above: Order Comment: Speci men Type: BLOOD SPECIMENOrdering Facility: [facility] Address: [address] [place] [address] Performed By: #### T SCR30 ####[facility] BLOOD BANKIA [id number] [place] [address] [place] Rh Nom (Bld) Negative Normal [facility] Comment on above: Order Comment: Speci men Type: BLOOD SPECIMENOrdering Facility: [facility] Address: [address] [place] [address] Performed By: #### T SCR30 ####[facility] BLOOD BANKIA [id number] [place] [address] [place] URINALYSIS, DIPSTICK ONLYon 03-03-2024 Bilirubin Ql (U) Negative Normal Negative [facility] Comment on above: Order Comment: Speci men Type: URINE SPECIMENOrdering Facility: [facility] Address: [address] [place] [address] Performed By: #### U A ####[facility] LABCL[facility] [id number] [place] [address] [place] Clarity (Unsp spec) Clear Normal Clear [facility] Comment on above: Order Comment: Speci men Type: URINE SPECIMENOrdering Facility: [facility] Address: [address] [place] [address] Performed By: #### U A ####[facility]CL[facility] [id number] [place] [address] [place] Color (U) Yellow Normal Yellow [facility] Comment on above: Order Comment: Speci men Type: URINE SPECIMENOrdering Facility: [facility] Address: [address] [place] [address] Performed By: #### U A ####[facility] LABCLIA [id number] [place] [address] [place] Glucose Test strip (U) [Mass/Vol] Negative Normal Negative [facility] Comment on above: Order Comment: Speci men Type: URINE SPECIMENOrdering Facility: [facility] Address: [address] [place] [address] Performed By: #### U A ####[facility] LABCL[facility] [id number] [place] [address] [place] Hemoglobin Ql (U) Negative Normal Negative [facility] Comment on above: Order Comment: Speci men Type: URINE SPECIMENOrdering Facility: [facility] Address: [address] [place] [address] Performed By: #### U A ####[facility] LABCL[facility] [id number] [place] [address] [place] Ketones Ql (U) Negative Normal Negative [facility] Comment on above: Order Comment: Speci men Type: URINE SPECIMENOrdering Facility: [facility] Address: [address] [place] [address] Performed By: #### U A ####[facility] LABCLIA [id number] [place] [address] [place] Leukocyte esterase Test strip Ql (U) 2+ Abnormal Negative [facility] Comment on above: Order Comment: Speci men Type: URINE SPECIMENOrdering Facility: [facility] Address: [address] [place] [address] Performed By: #### U A ####[facility] LABIA [id number] [place] [address] [place] Nitrite Ql (U) Negative Normal Negative [facility] Comment on above: Order Comment: Speci men Type: URINE SPECIMENOrdering Facility: [facility] Address: [address] [place] [address] Performed By: #### U A ####[facility] LABIA [id number] [place] [address] [place] pH (U) 5.5 [pH] Normal <8.5 [facility] Comment on above: Order Comment: Speci men Type: URINE SPECIMENOrdering Facility: [facility] Address: [address] [place] [address] Performed By: #### U A ####[facility] LABIA [id number] [place] [address] [place] Protein (U) [Mass/Vol] Negative Normal Negative [facility] Comment on above: Order Comment: Speci men Type: URINE SPECIMENOrdering Facility: [facility] Address: [address] [place] [address] Performed By: #### U A ####[facility] LABIA [id number] [place] [address] [place] Specific gravity (U) [Rel density] 1.020 Normal 1.005-1.03 0 [facility] Comment on above: Order Comment: Speci men Type: URINE SPECIMENOrdering Facility: [facility] Address: [address] [place] [address] Performed By: #### U A ####[facility] LABIA [id number] [place] [address] [place] Urobilinogen Ql (U) 0.2 EU/dL Normal 0.2-1.0 EU/dL [facility] Comment on above: Order Comment: Speci men Type: URINE SPECIMENOrdering Facility: [facility] Address: [address] [place] [address] Performed By: #### U A ####[facility] LABCLIA [id number] [place] [id number] [address] [place] XR CHEST 2V FRONTAL/LATon XR CHEST 2V FRONTAL/LAT Normal [facility] XR Chest PA and Lateralon IMPRESSION: No acute radiographic abnormality. Botany Technician: PSCRachel Transcribe Date/Time: Mar 03 2024 10:46A Dictated by : GAUDENCIO DELGADO, DO This examination was interpreted and the report reviewed and electronically signed by: MELIDA MASTERS MD on Mar 03 2024 10:50AM [facility] DIVISION OF RADIOLOGY * * *Final Report* * * DATE OF EXAM: Mar 03 2024 9:45AM [id number] - XR CHEST 2V FRONTAL/LAT / PROCEDURE REASON: multiple diagnoses * * * * Physician Interpretation * * * * EXAMINATION: CHEST RADIOGRAPH (2 VIEW FRONTAL & LATERAL) CLINICAL HISTORY: Pre-operative cardiovascular examination Mitral valve disorder MQ: XC2_6 EXAM DATE/TIME: 03/03/2024 9:45 AM COMPARISON: No relevant prior studies available. RESULT: Lines, tubes, and devices: None. Lungs and pleura: No consolidation. No pleural effusion. No pneumothorax. Cardiomediastinal silhouette: Normal cardiomediastinal silhouette. Bones and soft tissues: 2 partially visualized spinal stimulator leads terminates in the midthoracic spine. DIVISION OF RADIOLOGY Provider, [facility] - 03/03/2024 * * *Final Report* * * DATE OF EXAM: Mar 03 2024 9:45AM [id number] - XR CHEST 2V FRONTAL/LAT / PROCEDURE REASON: multiple diagnoses * * * * Physician Interpretation * * * * EXAMINATION: CHEST RADIOGRAPH (2 VIEW FRONTAL & LATERAL) CLINICAL HISTORY: Pre-operative cardiovascular examination Mitral valve disorder MQ: XC2_6 EXAM DATE/TIME: 03/03/2024 9:45 AM COMPARISON: No relevant prior studies available. RESULT: Lines, tubes, and devices: None. Lungs and pleura: No consolidation. No pleural effusion. No pneumothorax. Cardiomediastinal silhouette: Normal cardiomediastinal silhouette. Bones and soft tissues: 2 partially visualized spinal stimulator leads terminates in the midthoracic spine. IMPRESSION IMPRESSION: No acute radiographic abnormality. Botany Technician: PSCRachel Transcribe Date/Time: Mar 03 2024 10:46A Dictated by : GAUDENCIO DELGADO, This examination was interpreted and the report reviewed and electronically signed by: MELIDA MASTERS MD on Mar 03 2024 10:50AM EST [facility] Radiology Study observation (narrative) [facility] XR Chest PA and LateralOrder ed By: [facility]cf Provider on 03-03-2024 [facility] aPTT PPPon 03-03-2024 aPTT Coag (PPP) [Time] 26.5 s Normal 23.0-32.4 [facility] Comment on above: Order Comment: Speci men Type: BLOOD SPECIMENOrdering Facility: [facility] Address: [address] [place] [address] Performed By: #### 3 4528-0, 78863-7 ####[facility] LABCL[facility] [id number] [place] [address] [place] CNPNon 02-27-2024 CNPN Normal [facility] CNPNon 02-25-2024 CNPN Normal [facility] CNPNon 02-20-2024 CNPN Normal [facility] CNPNon 02-11-2024 CNPN Telephone (AGVASACC) HILDA MULLINS ([id number]) 1945 F Date Time Provider Department 02/11/24 LENA JENSEN During your visit today, we recorded the following information about you: Lena Jensen APRN.CNP 02/11/2024 11:09 AM Signed Called pt to invite to open heart education class. She said she is cancelling surgery, does not want to pursue surgery, and did not really expand on why. Notified crew scheduler. Lena Jensen APRN.CNP Allergies As of Date: 02/11/2024 Noted Allergy Reaction CODEINE 02/13/2005 8 - GI Upset MEDROL DOSE PACK (METHYLPREDNISOL*09/24/2006 9 - Itching Comments: upper arms and chest redness and itching, and chest heaviness OXYCODONE 01/31/2024 14 - Other: See Comments Comments: Patient states that she vomited; she had back surgery [facility] SULFA (SULFONAMIDE ANTIBIOTICS) 01/31/2024 4 - Hives Comments: Patient states she began to get allergic to it in the last two years. Date Reviewed: 01/31/2024 Reviewed by: Tisha Doyle LPN - Fully Assessed Prescriptions as of 02/11/2024 - lisinopril (ZESTRIL) 20 mg tablet Take 20 mg by mouth once daily. Patient states she takes: Lisinopril 20mg tablet by mouth once daily in the morning with breakfast. - lansoprazole (PREVACID) 30 mg ORAL capsule [...] as directed Problem List As Of Date 02/11/2024 Noted Resolved BENIGN HYPERTENSION [I10] 03/09/2005 GENERAL [...] without Mention of Obstruc*07/13/2009 Encounter Status:Closed by LENA JENSEN on 02/11/24 Normal [facility] Surgery Visit Reporton 02-10 Surgery Visit Report [facility] [address] [place] [address]. [address] [place] [address] OFFICE VISIT Date of Service: 02/11/24 MR#: [id number] Acct: [id number] Name: HILDA MULLINS Rep #: [id number] : 1945 Provider: RYLEE saenz Age/Sex: 78/F Location: [facility] Status: Signed Intake Vital Signs 01/28/24 06:47 Height 5 ft 2 in Intake Visit Reasons: HERNIA 01-27 Chief Complaint: hernia 01/27 Is patient in pain?: No Allergies omeprazole Allergy (Intermediate, Verified 02/11/24 08:50) Vomiting Sulfa (Sulfonamide Antibiotics) Allergy (Mild, Verified 02/11/24 08:50) Itching codeine Allergy (Verified 02/11/24 08:50) Vomiting methylprednisolone (From Medrol) Adverse Reaction (Severe, Verified 02/11/24 08:50) Itching Medications ???Medication ???Instructions ???Recorded ???Confirmed ???Type cholecalciferol (vitamin D3) 25 1,000 unit PO DAILY 08/18/13 02/11/24 History mcg (1,000 unit) capsule pantoprazole 20 mg tablet,delayed 20 mg PO DAILY 01/05/22 02/11/24 History release (Protonix) clobetasol 0.05 % topical ointment 1 applic topical QHS PRN it 01/02/24 02/11/24 History glucosam 750 mg-chondroi 100 1 tab PO DAILY 01/02/24 02/11/24 History mg-hyalur 1.65 mg-CF borate 108 mg tablet (CultureMap) lisinopril 20 mg tablet 20 mg PO QDAY #90 tabs 01/02/24 02/11/24 Rx Have you fallen in the past year?: No Subjective Details: Patient is an 78 y/o F [place] m following s/p robotic assisted laparoscopic right inguinal hernia repair with mesh by Dr. Simpson on 01/28/24. Patient tolerated the procedure well. Patient denies any pain at the incision sites or right groin site. She denies any fever, nausea, vomiting. She notes bowel habits have returned to normal. She states her appetite is slow to return, however this has been prior surgery as well. Objective Details: Abdomen- soft, nontender. Incisions c/d/i. No erythema or infection noted. No recurrent hernia noted. Coding Level of Care Code Global Post Op Diagnoses S/P inguinal hernia repair Z98.890; Z87.19 [facility] Medical History Wears hearing aid Wears glasses Post-menopausal Anxiety History of steroid therapy Back pain Blackout Difficulty swallowing History of hiatal hernia History of ulceration Asthma Shortness of breath on exertion Non-smoker Leg cramps History of pain when walking History of echocardiogram History of transesophageal echocardiography (FREDERIC) Cardiology follow-up encounter Sacral nerve stimulator present Dyspnea Hypoglycemia Vestibular migraine OAB (overactive bladder) Vertigo Vitamin D deficiency GERD (gastroesophageal reflux disease) Hiatal hernia Solitary kidney, acquired Mitral valve prolapse Cardiac murmur Syncope and collapse Hypertension Arthritis Surgical History (Updated 02/11/24 @ 08:51 by Italia Stewart) S/P inguinal hernia repair History of cardiac catheterization Hx of right cataract extraction Hx of left cataract extraction History of esophagogastroduodenoscopy (EGD) Hx of colonoscopy History of back surgery Hx of cholecystectomy Total knee replacement status History of hysterectomy History of kidney surgery Family History Aunt Breast cancer Mother Pancreatic cancer Brother Pancreatic cancer Cancer of blood vessel Social History Smoking Status: Never smoker alcohol intake: never substance use type: does not use what type of physical activity do you participate in: walking seatbelt use: always do you feel safe at home: Yes additional social history: patient is retired from [employer] after 41 years [employer]- works at [employer] Assessment and Plan (No Qualifiers) Assessment and Plan (1) S/P inguinal hernia repair: Status: Acute Plan: Recommend no lifting greater than 20 pounds for 2 additional weeks Follow-up as needed 02/11/24913 Date Angie Juarez Signature: Date (if applicable) CC: Dr. Davey Valente, DO Normal [facility] CBC W/Diff, Automatedon 10-3 Absolute Lymph 1.90 X10 3/uL Normal 0.83-4.51 [facility] Comment on above: Performed By: #### L 100.0100, L500.4050 ####[facility] [address] [place], [place], [id number] Absolute Neut 5.6 X10 3/uL Normal 2.0-7.7 [facility] Comment on above: Performed By: #### L 100.0100, L500.4050 ####[facility] [address] [place], [address] Basophils/100 WBC (Bld) 1.1 % High 0-1 [facility] Comment on above: Performed By: #### L 100.0100, L500.4050 ####[facility] [address] [place], [address] Eosinophils/100 WBC (Bld) 3.6 % Normal 0-5 [facility] Comment on above: Performed By: #### L 100.0100, L500.4050 ####[facility] [address] [place], [address] Erythrocyte distribution width (RBC) [Ratio] 13.6 % Normal 11.6-14.6 [facility] Comment on above: Performed By: #### L 100.0100, L500.4050 ####[facility] [address] [place], [address] Hematocrit (Bld) [Volume fraction] 40.4 % Normal 37-47 [facility] Comment on above: Performed By: #### L 100.0100, L500.4050 ####[facility] [address] [place], [address] Hemoglobin (Bld) [Mass/Vol] 12.8 g/dL Normal 12.0-15.0 [facility] Comment on above: Performed By: #### L 100.0100, L500.4050 ####[facility] [address] [place], [address] IG% 0.500 Normal 0.0-0.9 [facility] Comment on above: Result Comment: IG% - Immature Granulocytes (promyelocytes, myelocytes and metamyelocytes) > 1% indicates that a LEFT SHIFT is Present. Performed By: #### L 100.0100, L500.4050 ####[facility] [address] [place], [address] Lymphocytes/100 WBC (Bld) 21.8 % Normal 19-41 [facility] Comment on above: Performed By: #### L 100.0100, L500.4050 ####[facility] [address] [place], [address] MCH (RBC) [Entitic mass] 29.4 pg Normal 27.0-32.0 [facility] Comment on above: Performed By: #### L 100.0100, L500.4050 ####[facility] [address] [place], [address] MCHC (RBC) [Mass/Vol] 31.7 g/dL Low 32-36 [facility] Comment on above: Performed By: #### L 100.0100, L500.4050 ####[facility] [address] [place], [address] MCV (RBC) [Entitic vol] 92.9 fL Normal 81-99 [facility] Comment on above: Performed By: #### L 100.0100, L500.4050 ####[facility] [address] [place], [address] Monocytes/100 WBC (Bld) 9.0 % Normal 0-10 [facility] Comment on above: Performed By: #### L 100.0100, L500.4050 ####[facility] [address] [place], [address] Neutrophils/100 WBC (Bld) 64.0 % Normal 47-70 [facility] Comment on above: Performed By: #### L 100.0100, L500.4050 ####[facility] [address] [place], [address] Nucleated RBC (Bld) [#/Vol] 0 10*3/uL Normal 0-5 [facility] Comment on above: Performed By: #### L 100.0100, L500.4050 ####[facility] [address] [place], [address] Platelet mean volume (Bld) [Entitic vol] 11.8 fL Normal 6.2-12.0 [facility] Comment on above: Performed By: #### L 100.0100, L500.4050 ####[facility] [address] [place], [address] Platelets (Bld) [#/Vol] 307 10*3/uL Normal 150-450 [facility] Comment on above: Performed By: #### L 100.0100, L500.4050 ####[facility] [address] [place], [address] RBC (Bld) [#/Vol] 4.35 10*6/uL Normal 4.2-5.4 [facility] Comment on above: Performed By: #### L 100.0100, L500.4050 ####[facility] [address] [place], [address] RDW SD 46.5 fl High 35.1-43.9 [facility] Comment on above: Performed By: #### L 100.0100, L500.4050 ####[facility] [address] [place], [address] WBC (Bld) [#/Vol] 8.7 10*3/uL Normal 4.4-11.0 [facility] Comment on above: Performed By: #### L 100.0100, L500.4050 ####[facility] [address] [place], [address] Comprehensive Metabolic Prof [facility] 02-06-2024 Albumin [Mass/Vol] 3.5 g/dL Normal 3.2-5.0 [facility] Comment on above: Performed By: #### L 100.0100, L500.4050 ####[facility] [address] [place], [address] Albumin/Globulin [Mass ratio] 1.0 {ratio} Normal 0.9-2.4 [facility] Comment on above: Performed By: #### L 100.0100, L500.4050 ####[facility] [address] [place], [address] ALK P 69 U/L Normal 45-117 [facility] Comment on above: Performed By: #### L 100.0100, L500.4050 ####[facility] [address] [place], [address] ALT [Catalytic activity/Vol] 16 U/L Normal 13-56 [facility] Comment on above: Performed By: #### L 100.0100, L500.4050 ####[facility] [address] [place], [address] AST [Catalytic activity/Vol] 16 U/L Normal 15-37 [facility] Comment on above: Performed By: #### L 100.0100, L500.4050 ####[facility] [address] [place], [address] Bilirubin [Mass/Vol] 0.70 mg/dL Normal 0.20-1.00 [facility] Comment on above: Result Comment: For patients on eltrombopag therapy, use of Dimension [place] TBIL is not recommended. Performed By: #### L 100.0100, L500.4050 ####[facility] [address] [place], [address] BUN/CRE 17.4 RATIO Normal 10-20 [facility] Comment on above: Performed By: #### L 100.0100, L500.4050 ####[facility] [address] [place], [address] CA,Total 9.6 mg/dL Normal 8.5-10.1 [facility] Comment on above: Performed By: #### L 100.0100, L500.4050 ####[facility] [address] [place], [address] Chloride [Moles/Vol] 107 mmol/L Normal 98-107 [facility] Comment on above: Performed By: #### L 100.0100, L500.4050 ####[facility] [address] [place], [address] CO2 [Moles/Vol] 27.0 mmol/L Normal 21.0-32.0 [facility] Comment on above: Performed By: #### L 100.0100, L500.4050 ####[facility] [address] [place], [address] Creatinine [Mass/Vol] 0.98 mg/dL Normal 0.55-1.02 [facility] Comment on above: Result Comment: The validity of the calculated GFR GFRAA in patients over 70 years has not been determined. Clinical correlation is essential. Performed By: #### L 100.0100, L500.4050 ####[facility] [address] [place], [address] EST GFR - AA 70 mL/min Normal >60 [facility] Comment on above: Result Comment: Afri can Burundian GFR Calc Performed By: #### L 100.0100, L500.4050 ####[facility] [address] [place], [address] GAP 6 Normal 5-15 [facility] Comment on above: Performed By: #### L 100.0100, L500.4050 ####[facility] [address] [place], [address] GFR/1.73 sq M.predicted among non-blacks MDRD (S/P/Bld) [Vol rate/Area] 58 mL/min/{1.73_m2} Low >60 [facility] Comment on above: Result Comment: Non- GFR Calc Performed By: #### L 100.0100, L500.4050 ####[facility] [address] [place], [address] Globulin (S) [Mass/Vol] 3.6 g/dL Normal 2.2-4.2 [facility] Comment on above: Performed By: #### L 100.0100, L500.4050 ####[facility] [address] [place], [address] Glucose [Mass/Vol] 82 mg/dL Normal 74-106 [facility] Comment on above: Performed By: #### L 100.0100, L500.4050 ####[facility] [address] [place], [address] Potassium [Moles/Vol] 4.2 mmol/L Normal 3.5-5.1 [facility] Comment on above: Performed By: #### L 100.0100, L500.4050 ####[facility] [address] [place], [address] Sodium [Moles/Vol] 140 mmol/L Normal 136-145 [facility] Comment on above: Performed By: #### L 100.0100, L500.4050 ####[facility] [address] [place], [address] T PROT 7.1 g/dL Normal 6.4-8.2 [facility] Comment on above: Performed By: #### L 100.0100, L500.4050 ####[facility] [address] [place], [address] Urea nitrogen [Mass/Vol] 17 mg/dL Normal 7-18 [facility] Comment on above: Performed By: #### L 100.0100, L500.4050 ####[facility] [address] [place], [address] [facility] 02-04-2024 [facility] Telephone (AGBatonACC) HILDA MULLINS ([id number]) 1945 F Date Time Provider Department 02/04/24 GERMAINTAMMYANDREYEsmeJEREMIAS AudasterKEOACC During your visit today, we recorded the following information about you: Trev eWber MA 02/04/2024 11:30 AM Signed Referral to EP Dr. Ramos sent via [employer] Confirmation number: [id number] 02/06/24 CT Chest wo contrast 11:40am @ [facility] Phoned pt to schedule regarding future appt AND info regarding EP referral. Ms. Mullins doesn't want to schedule any of the testing or appt to EP. She'll call if she changes her mind. I cancelled testing Allergies As of Date: 02/04/2024 Noted Allergy Reaction CODEINE 02/13/2005 8 - GI Upset MEDROL DOSE PACK (METHYLPREDNISOL*09/24/2006 9 - Itching Comments: upper arms and chest redness and itching, and chest heaviness OXYCODONE 01/31/2024 14 - Other: See Comments Comments: Patient states that she vomited; she had back surgery [facility] SULFA (SULFONAMIDE ANTIBIOTICS) 01/31/2024 4 - Hives Comments: Patient states she began to get allergic to it in the last two years. Date Reviewed: 01/31/2024 Reviewed by: Tisha Doyle LPN - Fully Assessed Reason for Visit: Patient Update [1234] Prescriptions as of 02/04/2024 - lisinopril (ZESTRIL) 20 mg tablet Take 20 mg by mouth once daily. Patient states she takes: Lisinopril 20mg tablet by mouth once daily in the morning with breakfast. - lansoprazole (PREVACID) 30 mg ORAL capsule [...] as directed Problem List As Of Date 02/04/2024 Noted Resolved BENIGN HYPERTENSION [I10] 03/09/2005 GENERAL [...] without Mention of Obstruc*07/13/2009 Encounter Status:Closed by MARCELLUS WEBER on 02/04/24 [facility] CNOVon 01-31-2024 [facility] Office Visit (CAROL MORGAN) HILDA MULLINS ([id number]) 1945 F Date Time Provider Department 01/31/24 3:30 PM JEREMIAS TANNER During your visit today, we recorded the following information about you: Pulse Blood pressure Weight Height 81/minute 120/80 72.8 kg 1.575 m Esperanza Gonzalez APRN.[facility]OPER 05/15/2024 5:13 PM Signed Procedure Type: Isolated MVr Perioperative Outcome Estimate % Operative Mortality 1.65% Morbidity AND Mortality 6.17% Stroke 1.36% Renal Failure 1.03% Reoperation 2% Prolonged Ventilation 3.48% Deep Sternal Wound Infection 0.054% Long Hospital Stay (>14 days) 3.21% Short Hospital Stay (<6 days)* 43.6% Procedure Type: Isolated MVR Perioperative Outcome Estimate % Operative Mortality 3.25% Morbidity AND Mortality 10.3% Stroke 1.82% Renal Failure 1.93% Reoperation 2.99% Prolonged Ventilation 6.33% Deep Sternal Wound Infection 0.053% Long Hospital Stay (>14 days) 6.39% Short Hospital Stay (<6 days)* 25.5% Tisha Doyle LPN 01/31/2024 4:09 PM Signed CARDIAC REHAB 5 METER WALK TEST SERVICE DATE: 01/31/2024 SERVICE TIME: 3:59pm (Patient reports slight shortness of breath during her last leg of her 5 Meter Walk Test.) 6.66 sec 6.25 sec 6.52 sec ASSESSMENT: SIGNATURE: Tisha Doyle LPN PATIENT NAME: Hilda Mullins DATE: January 31, 2024 TIME: 4:07 PM PAGER/CONTACT #: [phone] Esperanza Gonzalez APRN.CNP 01/31/2024 5:16 PM Signed You came in to see Dr. Tanner today for surgical evaluation of mitral valve disease, by reviewing your images/clinical data, Dr. Tanner recommend the following: Reviewed history and scans with you today, you meet recommendations for surgery Recommend moving forward with other testing Will need lung function tests, Chest ct scan Also recommend that you have patch monitor placed to see if there are any rhythm issues. This has been ordered for you. Please call [phone] to schedule Thanks for coming in to see us today. Please call us if you have any concerns/questions: [phone] Esperanza Gonzalez APRN.HOGSHEAD HOOPER Cardiothoracic surgery CONTINUING EDUCATION DIRECTOR Jeremias Tanner MD 05/15/2024 5:13 PM Signed CARDIOTHORACIC SURGERY CONSULT / HANDP SERVICE DATE: 01/30/2025 SERVICE TIME: 1700 Subjective PRIMARY SERVICE: Cardiothoracic Surgery CHIEF COMPLAINT: Mitral regurgitation HPI: This is a 78 year old woman referred evaluation of mitral regurgitation and for concerns for by mitral repair or replacement. She suffered an episode of syncope. 2D echo performed in December showed 3-4+ MR with anteriorly directed jet, presence of prolapse, normal V function. Transesophageal echo performed at [facility] in December showed 3+ MR with posterior distal prolapse, normal V function no other significant valve abnormalities. Left heart catheterization revealed only mild luminal irregularities with approximately 60% lesion in small ramus branch. Significant MR noted. She has a history of vasovagal syncope. She is now experiencing some exertional dyspnea and fatigue. She has no previous cardiac history. PAST MEDICAL HISTORY Diagnosis Date Acute gastritis without mention of hemorrhage Arthritis Asthma Chest pain, unspecified Diaphragmatic hernia without mention of obstruction or gangrene Diaphragmatic hernia without mention of obstruction or gangrene Dyspepsia and other specified disorders of function of stomach Dyspnea Esophageal reflux Essential hypertension, benign Generalized osteoarthrosis, unspecified site Hiatal hernia Hypertension Hypoglycemia Migraine Mitral valve disorders(424.0) OAB (overactive bladder) Other specified congenital anomaly of kidney HAD A KIDNEY REMOVED ABOUT 10 YEARS AGO [facility] - PAST MEDICAL HISTORY OF 06/07/2009 Pinched nerve right hip Shingles 06/07/2009 Solitary kidney, acquired Stricture and stenosis of esophagus Syncope and collapse Vitamin D deficiency PAST SURGICAL HISTORY Procedure Laterality Date ARTHROSCOPY KNEE DIAGNOSTIC W/WO SYNOVIAL BX SPX Arthroscopy, knee left , numerous surgeries CARDIAC CATH 01/17/2024 [facility] COLONOSCOPY FLX DX W/COLLJ SPEC WHEN PFRMD 06/26/2005 Colonoscopy ESOPHAGOGASTRODUODENOSCOPY TRANSORAL DIAGNOSTIC 11/21/2006 EGD ESOPHAGOSCOPY FLEX BALLOON DILAT <30 MM DIAM 07/13/2009 LAPAROSCOPY SURG CHOLECYSTECTOMY Cholecystectomy, lap PAST SURGICAL HISTORY OF 04/09/1995 right kidney removed - nonfunctioning TOTAL ABDOMINAL HYSTERECT W/WO RMVL TUBE OVARY Hysterectomy, LEANNE FAMILY HISTORY Problem Relation Age of Onset Cancer Mother pancreatic Cancer Brother pancreatic Stroke Father multiple, arrythmia Breast Cancer Maternal Aunt Breast Cancer Paternal Aunt Cancer Brother leukemia, bone Prostate Cancer Brother Headache Sister migraine Heart Sister Stroke Sister Heart Father (more content not included)... Normal [facility] Discharge Instructionon 01-08 Discharge Instruction [facility] Medical Records Department [address] [place] [address] Instructions for Home/Discharge Instructions 01/28/24 0856 MR#: [id number] Acct: [id number] Name: HILDA MULLINS ANN Rep #: [id number] : 1945 78 From: Timur Simpson MD PCP: Dr. Davey Valente, DO Status:REG [facility] Discharge Instructions Procedure Hernia Diet Discharge Diet: Light diet - advance as tolerated Activity Discharge Activity: May Not Drive (for 2-3 days or while taking narcotic pain meds.) and May Shower (with the bandage in place 1-2 days after surgery.) Lifting Restrictions: 20 pounds for 4 weeks. Additional Activity Instructions:: Climbing stairs is fine, walking is encouraged. Sitting in bed may be uncomfortable. Sitting up using your lateral muscles (sitting up sideways) is usually more comfortable. Do not drive, work heavy equipment of sign legal documents for 24 hours. If your hernia repair was an inguinal repair, an ice pack can provide more comfort. Pain medications may cause nausea, you should typically eat light foods as you take your pain medications. Pain medications may also cause constipation. If you have difficulty with this, discuss with your doctor. Alternate ibuprofen and Tylenol for pain control, oxycodone for breakthrough pain. Dressing / Incision Call your doctor if your incision/area has: Continuous Slow Oozing, Sudden Increased Bleeding, Increased Pain/ Swelling, Increased Redness and Foul Smelling Discharge Call your doctor if you observe: Fever of 101 or Higher Suture Line Care: Avoid Pulling/Pushing and Avoid Pinching/Bending Remove Dressing in: 2 days (Remove clear bandages in 2 days, remove Steri-Strips in 7 to 10 days.) Follow Up Care Please Follow Up With: Timur Simpson MD When: Please call to schedule 2 week follow up appointment. [phone] Test Results: Test results from this visit will be discussed in further detail at your follow-up appointment, if applicable. Discharge Plan Admission Attending Provider: Timur Simpson Primary Care Provider: Davey Valente Instructions Print Language: Armenian Discharge Orders/Prescriptions Prescriptions: New oxycodone 5 mg Tablet 5 - 10 mg PO Q4H PRN PRN (Reason: Pain Score 4-10) 5 Days Qty: 10 0RF No Action pantoprazole [Protonix] 20 mg tablet,delayed release (DR/EC) 20 mg PO DAILY [facility] [employer] [facility] 750 mg-100 mg- 1.65 mg-108 mg tablet 1 tab PO DAILY clobetasol 0.05 % ointment 1 applic topical QHS PRN (Reason: it) Rx Instructions: apply thin layer; massage gently into affected area nightly x 6 weeks then 1-2x weekly lisinopril 20 mg tablet 20 mg PO QDAY Qty: 90 3RF cholecalciferol (vitamin D3) 1,000 UNIT capsule 1,000 unit PO DAILY Patient Comments: supplement Referrals / Follow Up: Davey Valente DO [Primary Care Provider] - Disposition Disposition (needs filled in before D/C Order can be placed): Home, Self Care 01/28/24 0858 Timur Simpson MD CC: Dr. Davey Valente DO Signed Normal [facility] MR/POSTOP.[facility] 01-28-2024 MR/POSTOP.[facility] Medical Records Department [address] [place] [address] Anesthesia Postop Eval I 01/28/24 0836 MR#: [id number] Acct: [id number] Name: HILDA MULLINS Rep #: [id number] : 1945 78 From: Mara Petit CRNA PCP: Dr. Davey Valente DO Status:REG SDC Y Race: C Location: [facility]05-10 Anesthesia: Postop Eval I Current Vital Signs Temperature: 97.7 F Pulse Rate: 98 Blood Pressure: 142/74 Respiratory Rate: 16 Pulse Ox: 98 Oxygen Delivery Method: Simple Mask Oxygen Flow Rate (L/min): 6 Assessment Airway patent: Yes Spontaneous unlabored respirations: Yes Mental status: Awake and Calm nausea: No Vomiting: No Anesthesia Complication: No Fluid Hydration Crystalloid volume administer (ml): 750 Total IV fluid infused: 750 Progress Note Anesthesia document: Postop Eval 1 completed: Yes 01/28/24837 Date Mara Petit PYTHON WEB DEVELOPER Cosigner Signature: Date CC: Signed Normal [facility] MR/[id number] 01-28-2024 MR/POSTOPAN2 [facility] Medical Records Department [address] [place] [address] Anesthesia Postop Eval II 01/28/2446 MR#: [id number] Acct: [id number] Name: HILDA MULLINS ANN Rep #: [id number] : 1945 78 From: Rashda Berg MD PCP: Dr. Davey Valente, DO Status:REG SDC Y Race: C Location: [address] Anesthesia Postop Eval I Sum Postop Eval Completion status Anesthesia document: Postop Eval 1 completed: Yes Anesthesia Postop Eval I Summary Anesthesia Postop Eval I Summary: Anesthesia Postop Eval I: Assessment Summary Airway patent Yes 01/28/24 08:38 PYTHON WEB DEVELOPER.ELLIOTTOBY Spontaneous unlabored Yes 01/28/24 08:38 PYTHON WE[employer] DEVELOPER.SKOBY respirations Mental status Awake,Calm 01/28/24 08:38 PYTHON WE[employer] DEVELOPER.SKOBY nausea No 01/28/24 08:38 PYTHON WE[employer] DEVELOPER.SKOBY Vomiting No 01/28/24 08:38 PYTHON WE[employer] DEVELOPER.SKOBY Anesthesia Postop Eval I: Fluid Summary Crystalloid volume administer 750 01/28/24 08:38 PYTHON WEB DEVELOPER.SKOBY (ml) Colloids volume administered ( ml) Blood Product volume administered (ml) Total IV fluid infused 750 01/28/24 08:38 PYTHON WEB DEVELOPER.SKOBY Anesthesia Postop Eval I: Summary Notes Anesthesia Complication No 01/28/24 08:38 PYTHON WEB DEVELOPERDILLAN Anesthesia Complication Comment: Post-operative progress note Anesthesia: Postop Eval II Evaluation Mental status: Awake Pain Level: 0 nausea: No Vomiting: No 01/28/24 0847 Date Rashad Berg MD Cosigner Signature: Date CC: Signed Normal [facility] Operative Reporton 4 Operative Report [facility] Medical Records Department [address] [place] [address] Operative Report 01/28/24 0841 MR#: [id number] Acct: [id number] Name: HILDA MULLINS ANN Rep #: [id number] : 1945 78 From: Timur Simpson MD PCP: Dr. Davey Valente, DO Status:[facility] Location: [place] [address] Report of Operation Date of Procedure: 01/28/24 Pre-Operative Diagnosis: Right inguinal hernia Post-Operative Diagnosis: Same Surgery/Procedure Performed:: Robotic assisted laparoscopic right inguinal hernia repair with mesh Type of Anesthesia: General/Regional Specimen's removed: None Estimated Blood Loss (mL): 10 Description of Procedure: Patient was brought back to the operative room and general anesthesia was induced. The abdomen was prepped and draped in usual sterile fashion. A midline incision was made superior to the umbilicus and deepened to the fascia. The fascia was elevated and a Veress needle was placed into the abdomen and a drop test was performed. Abdomen is insufflated to 15 mmHg and the Veress needle was removed. A port was placed into the abdomen. The abdomen was inspected for injuries and there were none. Patient was then placed in steep Trendelenburg position. Under direct visualization an 8 mm port was placed in the right lateral abdomen as well as left lateral abdomen and the robot was docked. An incision was made in the right lower quadrant peritoneum using electrocautery scissors. Dissection was carried inferiorly until the hernia sac was identified and reduced. Dissection was carried toward the indirect space and the round ligament was identified and clipped and divided. After dissection was complete a ProGrip mesh was placed over the hernia with good overlap. Next the peritoneum was reapproximated over the mesh using running 3-0 V lock suture. This completely covered the mesh. Next the robot was undocked and the instruments were removed. The ports were then removed and the abdomen was allowed to desufflate. The skin incisions were injected with local anesthetic and then closed with interrupted 4-0 Monocryl suture. Steri-Strips and bandages were applied. Patient was brought to PACU in stable condition and tolerated the procedure well. Grafts/Implants Used: ProGrip mesh in the right groin Admit VTE Documentation VTE Mechan Device Prophylaxis: SCD's 01/28/24 0849 Cosigner Signature (if applicable): CC: Dr. Timur Simpson MD; Dr. Davey Valente, DO Signed Normal [facility] CBC W/Diff, Automatedon 01-07 Absolute Lymph 1.62 X10 3/uL Normal 0.83-4.51 [facility] Comment on above: Performed By: #### L 500.2500 #### [facility] [address] [place], [address] Absolute Neut 6.5 X10 3/uL Normal 2.0-7.7 [facility] Comment on above: Performed By: #### L 500.2500 #### [facility] [address] [facility] [place], [address] Basophils/100 WBC (Bld) 0.5 % Normal 0-1 [facility] Comment on above: Performed By: #### L 500.2500 #### [facility] [address] [facility] [place], [address] Eosinophils/100 WBC (Bld) 1.0 % Normal 0-5 [facility] Comment on above: Performed By: #### L 500.2500 #### [facility] [address] [facility] [facility] [place], [address] Erythrocyte distribution width (RBC) [Ratio] 13.5 % Normal 11.6-14.6 [facility] Comment on above: Performed By: #### L 500.2500 #### [facility] [address] [place], [address] Hematocrit (Bld) [Volume fraction] 42.1 % Normal 37-47 [facility] Comment on above: Performed By: #### L 500.2500 #### [facility] [address] [place], [address] Hemoglobin (Bld) [Mass/Vol] 13.4 g/dL Normal 12.0-15.0 [facility] Comment on above: Performed By: #### L 500.2500 #### [facility] [address] [facility] [place], [address] IG% 0.500 Normal 0.0-0.9 [facility] Comment on above: Result Comment: IG% - Immature Granulocytes (promyelocytes, myelocytes and metamyelocytes) > 1% indicates that a LEFT SHIFT is Present. Performed By: #### L 500.2500 #### [facility] [address] [facility] [place], [address] Lymphocytes/100 WBC (Bld) 18.5 % Low 19-41 [facility] Comment on above: Performed By: #### L 500.2500 #### [facility] [address] [place], [address] MCH (RBC) [Entitic mass] 28.9 pg Normal 27.0-32.0 [facility] Comment on above: Performed By: #### L 500.2500 #### [facility] [address] [facility] [place], [address] MCHC (RBC) [Mass/Vol] 31.8 g/dL Low 32-36 [facility] Comment on above: Performed By: #### L 500.2500 #### [facility] [address] [place], [address] MCV (RBC) [Entitic vol] 90.9 fL Normal 81-99 [facility] Comment on above: Performed By: #### L 500.2500 #### [facility] [address] [place], [address] Monocytes/100 WBC (Bld) 5.6 % Normal 0-10 [facility] Comment on above: Performed By: #### L 500.2500 #### [facility] [address] [place], [address] Neutrophils/100 WBC (Bld) 73.9 % High 47-70 [facility] Comment on above: Performed By: #### L 500.2500 #### [facility] [address] [place], [address] Nucleated RBC (Bld) [#/Vol] 0 10*3/uL Normal 0-5 [facility] Comment on above: Performed By: #### L 500.2500 #### [facility] [address] [place], [address] Platelet mean volume (Bld) [Entitic vol] 11.2 fL Normal 6.2-12.0 [facility] Comment on above: Performed By: #### L 500.2500 #### [facility] [address] [place], [address] Platelets (Bld) [#/Vol] 258 10*3/uL Normal 150-450 [facility] Comment on above: Performed By: #### L 500.2500 #### [facility] [address] [place], [address] RBC (Bld) [#/Vol] 4.63 10*6/uL Normal 4.2-5.4 [facility] Comment on above: Performed By: #### L 500.2500 #### [facility] [address] [place], [address] RDW SD 45.2 fl High 35.1-43.9 [facility] Comment on above: Performed By: #### L 500.2500 #### [facility] [address] [place], [address] WBC (Bld) [#/Vol] 8.8 10*3/uL Normal 4.4-11.0 [facility] Comment on above: Performed By: #### L 500.2500 #### [facility] [address] [place], [address] CBC-Complete Blood Cnt No Di ffon 01-24-2024 HCT Normal 37-47 [facility] Comment on above: Result Comment: CBC ORDERED Performed By: #### L 100.0500 #### [facility] [address] [place], [address] HGB Normal 12.0-15.0 [facility] Comment on above: Result Comment: CBC ORDERED Performed By: #### L 100.0500 #### [facility] [address] [place], [address] MCH Normal 27.0-32.0 [facility] Comment on above: Result Comment: CBC ORDERED Performed By: #### L 100.0500 #### [facility] [address] [place], [address] MCHC Normal 32-36 [facility] Comment on above: Result Comment: CBC ORDERED Performed By: #### L 100.0500 #### [facility] [address] [place], [address] MCV Normal 81-99 [facility] Comment on above: Result Comment: CBC ORDERED Performed By: #### L 100.0500 #### [facility] [address] [place], [address] PLT Normal 150-450 [facility] Comment on above: Result Comment: CBC ORDERED Performed By: #### L 100.0500 #### [facility] [address] [place], [address] RBC Normal 4.2-5.4 [facility] Comment on above: Result Comment: CBC ORDERED Performed By: #### L 100.0500 #### [facility] [address] [place], [address] RDW CV Normal 11.6-14.6 [facility] Comment on above: Result Comment: CBC ORDERED Performed By: #### L 100.0500 #### [facility] [address] [place], [address] RDW SD Normal 35.1-43.9 [facility] Comment on above: Result Comment: CBC ORDERED Performed By: #### L 100.0500 #### [facility] [address] [place], [address] WBC Normal 4.4-11.0 [facility] Comment on above: Result Comment: CBC ORDERED Performed By: #### L 100.0500 #### [facility] [address] [place], [address] CNPNon 01-18-2024 [facility] Telephone ([facility]) HILDA MULLINS ([id number]) 1945 F Date Time Provider Department 01/18/24 JEREMIAS TANNER During your visit today, we recorded the following information about you: Eloisa Mahmood 01/18/2024 11:56 AM Signed Referral received from [facility] for Dr. Tanner. Fax was sent to [facility] for images. Referral from [facility]/Dr. Alejandro #[phone] - Non-rheumatic mitral prolapse severe and insufficiency Allergies As of Date: 01/18/2024 Noted Allergy Reaction CODEINE 02/13/2005 8 - GI Upset MEDROL DOSE PACK (METHYLPREDNISOL*09/24/2006 9 - Itching Comments: upper arms and [...] Encounter Status:Closed by ELOISA MAHMOOD on 01/18/24 Normal [facility] Cardiac Cath Diagn[facility]icon Cardiac Cath Diagnostic [facility] [address] [place] [address] Cardiac Cath Diagnostic MR#: [id number] Acct: [id number] Name: HILDA MULLINS Rep #: [id number] : 1945 78 From: Kenny Alejandro MD PCP: Dr. Davey Valente, DO Status:[facility] Patient Name: HILDA MULLINS Study Date: 01/17/2024 Performing: Kenny Alejandro MD Ht: 62 inches 157.48 cm : 1945 Wt: 162 lbs 73.48 kg Age: 78 Gender: female BSA: 1.75 PROCEDURE(S) PERFORMED DC01-(68361)LHC/COR/LV CLINICAL PROFILE AND INDICATIONS Indications: Valvular Disease Heart Failure: None Stress/Imaging Stress/Image Study Performed: No CAD Presentations: Symptom unlikely to be ischemic. CONCLUSIONS Mild coronary artery disease, preserved ejection fraction, moderately severe mitral regurgitation with mitral valve prolapse. RECOMMENDATIONS Surgical evaluation for mitral valve repair DESCRIPTION OF PROCEDURE The patient arrived to the procedure lab. The risks and benefits of the procedure as well as a full description of our services here and current unavailability of surgical backup were fully explained to the patient and/or their significant other prior to the catheterization. The Timeout was completed, verifying the correct patient and procedure. The patient's procedural site was prepped and draped in the usual fashion. Local anesthetic was given subcutaneously to right radial region with Lidocaine 2%. Using a modified Seldinger technique, arterial access was obtained via the right radial artery, a 6Fr sheath was inserted. Right Coronary Artery selective angiography was then performed in multiple views using a 5 Fr. 4.0 [place] catheter. Left Coronary Artery selective angiography was performed in multiple views using a 5 Fr. 4.0 [place] catheter. Left Ventriculography was performed in RODRIGUEZ projection using a 5 Fr. Pigtail catheter. LV to AO pullback pressures were then recorded.The arterial sheath was pulled and a TR Band was applied for hemostasis CORONARY ANGIOGRAPHY DOMINANCE: Right Dominant LEFT HEART ASSESSMENT Left Ventricular Ejection Fraction: by LV Gram 60 % Normal LV wall motion Normal Left Ventricular systolic function LEFT MAIN: Mild calcification, Less than 20% % Stenosis LEFT ANTERIOR DESCENDING ARTERY: Mild luminal irregularities less than 30% CIRCUMFLEX ARTERY: Mild luminal irregularities RAMUS: Tiny vessel with 60 to 70% proximal stenosis RIGHT CORONARY ARTERY: Mild luminal irregularities less than 30% VALVE FINDINGS: Mitral Valve Prolapse Severe Mitral Valve Insufficiency - Grade 3 COMPLICATIONS No Complications PROCEDURE MEDICATIONS Fentanyl 50 mcg IV Versed 1 mg IV Oxygen: 2 L/min via nasal cannula Aspirin (325mg) 1 Tabs PO @ 01/17/2024 07:20:33 Heparin given IA 01/17/2024 08:10:47 Verapamil 2.5mg, Ntg 100mcgs, 3000 units of Heparin given IA 01/17/2024 08:10:47 SUMMARY OF HEMODYNAMIC DATA Time AIR REST ECG 07:25:40 AO 115/68 (89) SA 08:11:19 LV 153/10, 28 08:18:08 LV 115/12, 17 08:18:14 LV 120/25, 27 08:18:58 LV 141/13, 19 08:19:14 LVp 144/20, 22 08:19:17 AOp 142/70 (99) 08:19:22 AIR REST 08:31:36 Signed By Kenny Alejandro MD On 01/17/2024 08:40:38 Kenny Alejandro MD 01/17/24 0841 Date Kenny Alejandro MD Cosigner Signature: Date (if indicated) CC: Dr. Kenny Alejandro MD; Dr. Davey Valente, Date Dictated: 01/17/24809 Date Transcribed: 01/17/24839 Botany Technician: CO Signed Normal [facility] Basic Metabolic Profile (BMP )on 01-09-2024 BUN/CRE 17.0 RATIO Normal 10-20 [facility] Comment on above: Performed By: #### L 500.2500, L300.3900 #### [facility] [address] [place], [address] CA,Total 9.8 mg/dL Normal 8.5-10.1 [facility] Comment on above: Performed By: #### L 500.2500, L300.3900 #### [facility] [address] [place], [address] Chloride [Moles/Vol] 109 mmol/L High 98-107 [facility] Comment on above: Performed By: #### L 500.2500, L300.3900 #### [facility] [address] [place], [address] CO2 [Moles/Vol] 25.0 mmol/L Normal 21.0-32.0 [facility] Comment on above: Performed By: #### L 500.2500, L300.3900 #### [facility] [address] [place], [address] Creatinine [Mass/Vol] 1.00 mg/dL Normal 0.55-1.02 [facility] Comment on above: Result Comment: The validity of the calculated GFR GFRAA in patients over 70 years has not been determined. Clinical correlation is essential. Performed By: #### L 500.2500, L300.3900 #### [facility] [address] [place], [address] EST GFR - AA 69 mL/min Normal >60 [facility] Comment on above: Result Comment: Afri can Burundian GFR Calc Performed By: #### L 500.2500, L300.3900 #### [facility] [address] [place], [address] GAP 7 Normal 5-15 [facility] Comment on above: Performed By: #### L 500.2500, L300.3900 #### [facility] [address] [place], [address] GFR/1.73 sq M.predicted among non-blacks MDRD (S/P/Bld) [Vol rate/Area] 57 mL/min/{1.73_m2} Low >60 [facility] Comment on above: Result Comment: Non- GFR Calc Performed By: #### L 500.2500, L300.3900 #### [facility] [address] [place], [address] Glucose [Mass/Vol] 97 mg/dL Normal 74-106 [facility] Comment on above: Performed By: #### L 500.2500, L300.3900 #### [facility] [address] [place], [address] Potassium [Moles/Vol] 3.7 mmol/L Normal 3.5-5.1 [facility] Comment on above: Performed By: #### L 500.2500, L300.3900 #### [facility] [address] [place], [address] Sodium [Moles/Vol] 141 mmol/L Normal 136-145 [facility] Comment on above: Performed By: #### L 500.2500, L300.3900 #### [facility] [address] [place], [address] Urea nitrogen [Mass/Vol] 17 mg/dL Normal 7-18 [facility] Comment on above: Performed By: #### L 500.2500, L300.3900 #### [facility] [address] [place], [address] Chest PA and Lateralon 01-08 Chest PA and Lateral [facility] [address] [place] [address] Chest PA and Lateral MR#: [id number] Acct: [id number] Name: HILDA MULLINS Rep #: [id number] : 1945 F 78 From: Artis neff DO PCP: Dr. Davey Valente DO Status: PRE [facility] Study: Chest PA and Lateral Date of Exam: 01/09/24 Exam# [id number] Ordering Dr: Soraya Mark :[id number] EXAM: XR CHEST, 2 VIEWS CLINICAL INDICATION: pre-procedure TECHNIQUE: Frontal and lateral views of the chest. COMPARISON: 06/14/2009 and thoracic spine, 12/17/2023. FINDINGS: LUNGS AND PLEURAL SPACES: Hyperinflated lungs with interstitial prominence likely secondary to COPD. No focal pneumonia. No pneumothorax. No effusion. HEART: No significant abnormality. Cardiac silhouette not enlarged. MEDIASTINUM: Central airways and mediastinal contour are unremarkable. BONES/JOINTS: No significant abnormality. No acute fracture. SOFT TISSUES: No significant abnormality. VASCULATURE: Atherosclerosis. TUBES, LINES AND DEVICES: Spinal cord stimulator leads are identified. RAD/Chest PA and Lateral IMPRESSION: Hyperinflated lungs with interstitial prominence likely secondary to COPD. No focal pneumonia. Electronically Signed: Artis Bowles DO at 23:57 EDT , CC: Dr. Davey Valente DO; MATILDE Rapp Botany Technician: Signed Normal [facility] Prothrombin Time w/INRon INR Coag (PPP) [Relative time] 1.1 {INR} Normal [facility] Comment on above: Performed By: #### L 500.2500, L300.3900 #### [facility] [address] [place], [address] PT Coag (PPP) [Time] 14.5 s Normal 11.7-14.9 [facility] Comment on above: Performed By: #### L 500.2500, L300.3900 #### [facility] [address] [place], [address] Surgery Visit Reporton 01-08 Surgery Visit Report [facility] [address] [place] [address] OFFICE VISIT Date of Service: 01/09/24 MR#: [id number] Acct: [id number] Name: HILDA MULLINS Rep #: [id number] : 1945 Provider: Dr. Timur bowden MD Age/Sex: 78/F Location: [facility] Status: Signed Intake Vital Signs 08/03/22 15:45 01/02/24 12:54 01/09/24 08:30 Height 5 ft 2 in 5 ft 2 in 5 ft 2 in Weight: 161 lb BMI 29.4 BP 159/81 H Blood Pressure Location Rt brachial Position Sitting Respiration 17 Pulse 75 Pulse Source Monitor Pulse Oximetry (%) 9 Oxygen Delivery Method room air Intake Visit Reasons: Hernia Chief Complaint: hernia Is patient in pain?: Yes Allergies omeprazole Allergy (Intermediate, Verified 01/24/24 13:10) Vomiting Sulfa (Sulfonamide Antibiotics) Allergy (Mild, Verified 01/09/24 08:31) Itching codeine Allergy (Verified 01/09/24 08:31) Vomiting methylprednisolone (From Medrol) Adverse Reaction (Severe, Verified 01/09/24 08:31) Itching Medications ???Medication ???Instructions ???Recorded ???Confirmed ???Type cholecalciferol (vitamin D3) 25 1,000 unit PO DAILY 08/18/13 01/28/24 History mcg (1,000 unit) capsule pantoprazole 20 mg tablet,delayed 20 mg PO DAILY 01/05/22 01/28/24 History release (Protonix) clobetasol 0.05 % topical ointment 1 applic topical QHS PRN it 01/02/24 01/28/24 History glucosam 750 mg-chondroi 100 1 tab PO DAILY 01/02/24 01/28/24 History mg-hyalur 1.65 mg-CF borate 108 mg tablet (CultureMap) lisinopril 20 mg tablet 20 mg PO QDAY #90 tabs 01/02/24 01/28/24 Rx Have you fallen in the past year?: No PFSH Medical History Wears hearing aid Wears glasses Post-menopausal Anxiety History of steroid therapy Back pain Blackout Difficulty swallowing History of hiatal hernia History of ulceration Asthma Shortness of breath on exertion Non-smoker Leg cramps History of pain when walking History of echocardiogram History of transesophageal echocardiography (FREDERIC) Cardiology follow-up encounter Sacral nerve stimulator present Dyspnea Hypoglycemia Vestibular migraine OAB (overactive bladder) Vertigo Vitamin D deficiency GERD (gastroesophageal reflux disease) Hiatal hernia Solitary kidney, acquired Mitral valve prolapse Cardiac murmur Syncope and collapse Hypertension Arthritis Surgical History History of cardiac catheterization Hx of right cataract extraction Hx of left cataract extraction History of esophagogastroduodenoscopy (EGD) Hx of colonoscopy History of back surgery Hx of cholecystectomy Total knee replacement status History of hysterectomy History of kidney surgery Family History Aunt Breast cancer Mother Pancreatic cancer Brother Pancreatic cancer Cancer of blood vessel Social History Smoking Status: Never smoker alcohol intake: never substance use type: does not use what type of physical activity do you participate in: walking seatbelt use: always do you feel safe at home: Yes additional social history: patient is retired from [employer] after 41 years [employer]- works at [employer] HPI HPI: Patient is an 78-year-old female who presents with right inguinal hernia that is bothering her. She said the pain is radiating up the right groin. ROS General General: Yes fatigue; No weight change, appetite, colon cancer, breast cancer or weakness HEENT HEENT: No difficulty swallowing, eye injury, eye surgery, swollen glands or hoarseness Endo Endocrine: No thyroid disease, diabetes mellitus, thyroid cancer, Hair loss, heat intolerance or cold intolerance Skin Skin: No rash or changing moles Musc Musculoskeletal: Yes back problems and arthritis; No rheumatoid arthritis, gout or joint pain Cardio Cardiovascular: Yes murmur and high blood pressure; No pacemaker, heart disease, atrial fibrillation, heart attack, heart stent, palpitations, shortness of breat with exertion or chest pain Psych Psychiatric: No depression, anxiety or hearing voices Resp Respiratory: No shortness of breath, No sleep apnea, No cough, No COPD, No asthma, No emphysema and No wheezing Gastro Gastrointestinal: Yes abdominal pain, No nausea or vomiting, No diarrhea, No constipation, No blood in stool, Yes acid reflux, No hemorrhoids, No ulcers, No gallbladder problem and No black,tarry stools Umair Hematologic: No blood thinners, No blood disorders, No bleeding, No anemia and No blood clots Neuro Neurologic: No system reviewed and no additional complaints, except (more content not included)... Normal [facility] Echo Transesophageal (FREDERIC)on 01-07-2024 Echo Transesophageal (FREDERIC) [facility] [address] [place] [address] Echo Transesophageal (FREDERIC) 01/07/24 1012 MR#: [id number] Acct: [id number] Name: HILDA MULLINS Rep #: [id number] : 1945 78 From: Kenny Alejandro MD Attending Dr: Dr. Kenny Alejandro MD Status: REG [facility] Ordering Dr: Kenny Alejandro MD Date: 01/07/24 Location: [facility] Sex: F C Admitted: Reason For Study: MITRAL VALVE PROLAPSE Medication FREDERIC probe 6VT-D (SN [id number]) passed without difficulty. No complications were noted. Cetacaine Topical [place] given X4 orally. Versed 1 mg given slow IVP. Fentanyl 50 mcg given slow IVP. Performed a rapid injection of agitated mix of 9 cc saline and 1cc air to assess for atrial septal defect. Left Ventricle Normal LV size. Left ventricular systolic function is normal. The left ventricular ejection fraction is 65 %. No regional wall motion abnormalities noted. Right Ventricle Normal RV size. Normal systolic function. Atria Normal atrial septum. Bubble contrast study negative for right to left interatrial shunt. The left atrium is moderately enlarged. No thrombus is detected in the left atrial appendage. Normal right atrium. Mitral Valve Posterior leaflet mitral valve prolapse. Moderately severe (3+) anteriorly directed mitral valve insufficiency. Tricuspid Valve Normal tricuspid valve. Mild tricuspid valve insufficiency. Aortic Valve Trisinus/trileaflet aortic valve. Pulmonic Valve Normal pulmonic valve. Vessels Normal aortic root. Mild atherosclerosis of the aortic arch. The pulmonary artery is normal size. Pulmonary venous flow normal. Pericardium No pericardial effusion. ECHO/Echo Transesophageal (FREDERIC) Interpretation Summary Normal LV size. The left ventricular ejection fraction is 65 %. Left ventricular systolic function is normal. Posterior leaflet mitral valve prolapse. Moderately severe (3+) anteriorly directed mitral valve insufficiency. Ordering Physician: Kenny Alejandro Referring Physician: Davey Valente Performed By: Michelle Esparza, [facility] 01/07/24 1212 Date Kenny Alejandro MD CC: Dr. Kenny Alejandro MD; Dr. Davey Valente DO Date Dictated: 01/07/24 1012 Date Transcribed: 01/07/24 1212 Botany Technician: Signed Normal [facility] Basic Metabolic Profile (BMP )on 01-04-2024 BUN/CRE 20.0 RATIO Normal 10-20 [facility] Comment on above: Performed By: #### L 500.2500 #### [facility] [address] [place], [address] CA,Total 9.8 mg/dL Normal 8.5-10.1 [facility] Comment on above: Performed By: #### L 500.2500 #### [facility] [address] [place], [address] Chloride [Moles/Vol] 106 mmol/L Normal 98-107 [facility] Comment on above: Performed By: #### L 500.2500 #### [facility] [address] [place], [address] CO2 [Moles/Vol] 28.0 mmol/L Normal 21.0-32.0 [facility] Comment on above: Performed By: #### L 500.2500 #### [facility] [address] [place], [address] Creatinine [Mass/Vol] 1.05 mg/dL High 0.55-1.02 [facility] Comment on above: Result Comment: The validity of the calculated GFR GFRAA in patients over 70 years has not been determined. Clinical correlation is essential. Performed By: #### L 500.2500 #### [facility] [address] [place], [address] EST GFR - AA 65 mL/min Normal >60 [facility] Comment on above: Result Comment: Afri can [place]ian GFR Calc Performed By: #### L 500.2500 #### [facility] [address] [place], [address] GAP 7 Normal 5-15 [facility] Comment on above: Performed By: #### L 500.2500 #### [facility] [address] [place], [address] GFR/1.73 sq M.predicted among non-blacks MDRD (S/P/Bld) [Vol rate/Area] 54 mL/min/{1.73_m2} Low >60 [facility] Comment on above: Result Comment: Non- GFR Calc Performed By: #### L 500.2500 #### [facility] [address] [place], [address] Glucose [Mass/Vol] 100 mg/dL Normal 74-106 [facility] Comment on above: Result Comment: Fast ing Glucose result from 100 to 125 mg/dL suggests IMPAIRED HOMEOSTASIS per A.D.A. criteria. Performed By: #### L 500.2500 #### [facility] [address] [place], [address] Potassium [Moles/Vol] 3.7 mmol/L Normal 3.5-5.1 [facility] Comment on above: Performed By: #### L 500.2500 #### [facility] [address] [place], [address] Sodium [Moles/Vol] 140 mmol/L Normal 136-145 [facility] Comment on above: Performed By: #### L 500.2500 #### [facility] [address] [place], [address] Urea nitrogen [Mass/Vol] 21 mg/dL High 7-18 [facility] Comment on above: Performed By: #### L 500.2500 #### [facility] [address] [place], [address] 12 Lead EKG performed by [facility] on 01-02-2024 12 Lead EKG performed by [facility] [address] [place] [address] 12 Lead EKG performed by [facility] 01/02/24 1254 MR#: [id number] Acct: [id number] Name: HILDA MULLINS Rep #: [id number] : 1945 78 From: Kenny Alejandro MD Attending Dr: Dr. Kenny Alejandro MD Status: DEP A MB Ordering Dr: Kenny Alejandro MD Date: 01/02/24 Location: [facility] Sex: F C Admitted: BMS/12 Lead EKG performed by [facility] ECG Report Interpretation Si nus Rhythm -Left atrial enlargement. BORDERLINEElectronically signed on 01/04/2024 at 07:47 by Kenny Alejandro Software Version [id number] 01/04/24 0750 Date Kenny Aljeandro MD CC: Dr. Davey Valente, DO Date Dictated: 01/02/24 1254 Date Transcribed: 01/02/241253 Botany Technician: CO Signed Normal [facility] Cardiology Visit Reporton Cardiology Visit Report [facility] [place] [address] OFFICE VISIT Date of Service: 01/02/24 MR#: [id number] Acct: [id number] Name: HILDA MULLINS ANN Rep #: [id number] : 1945 Provider: Dr. Kenny Alejandro MD Age/Sex: 78/F Location[facility] Status: Signed HPI HPI History of Present Illness Details: 78-year-old lady with a previous history of recurrent syncopal spells which grew back at least 60 years. On this last event she was at a neighborhood event and then she suddenly felt herself getting warm she felt that she was going to pass out she was having some visual problems she became diaphoretic and pale and then apparently passed out. Neighbor felt that she could not feel her pulse and they asked her to see the physician. This event has been attributed to blood sugar issues for many years. Her passing out spells at 1 time culminated after her wedding in a cardiac catheterization when she was diagnosed as having mitral valve prolapse. She has never had an echocardiogram. She has a few of these episodes every year and she can always tell it coming on. She has been on antihypertensive therapy but has not had any chest pain to suggest angina. She has been compliant with all her medications. She had an echocardiogram performed which demonstrated preserved ejection fraction of 65%. The atrium were reported as severely enlarged by the atrial volume was 24 cm which is only mildly enlarged. She did have mitral valve posterior leaflet prolapse with probable mitral regurgitation which was at least moderate and anteriorly directed. She is completely asymptomatic otherwise with no shortness of breath. Her physical exam demonstrates clear lung gaona and midsystolic click at 3/6 holosystolic murmur radiating towards the axilla no pedal edema and her electrocardiogram demonstrating sinus rhythm with a rate of 84 bpm. Her echocardiogram was reviewed. Intake Vital Signs 08/03/22 15:45 01/02/24 12:54 Height 5 ft 2 in 5 ft 2 in Weight: 162 lb BMI 29.6 BP 141/88 H Blood Pressure Location Lt brachial Position Sitting Respiration 16 Pulse 90 Pulse Source Monitor Intake Visit Reasons: SYNCOPE (AMBROSIO) Medication Assistant Required: No Accompanied by: Is patient in pain?: No Allergies omeprazole Allergy (Intermediate, Verified 01/02/24 13:00) Vomiting Sulfa (Sulfonamide Antibiotics) Allergy (Mild, Verified 01/02/24 13:00) Itching codeine Allergy (Verified 01/02/24 13:00) Vomiting methylprednisolone (From Medrol) Adverse Reaction (Severe, Verified 01/02/24 13:00) Itching Medications ???Medication ???Instructions ???Recorded ???Confirmed ???Type cholecalciferol (vitamin D3) 25 1,000 unit PO DAILY 08/18/13 01/02/24 History mcg (1,000 unit) capsule pantoprazole 20 mg tablet,delayed 20 mg PO DAILY 01/05/22 01/02/24 History release (Protonix) diazepam 5 mg tablet 5 mg PO QHS PRN 12/14/23 01/02/24 History clobetasol 0.05 % topical ointment 1 applic topical QHS PRN 01/02/24 History doxycycline monohydrate 100 mg 100 mg PO QDAY 01/02/24 01/02/24 History capsule glucosam 750 mg-chondroi 100 tab PO 01/02/24 01/02/24 History mg-hyalur 1.65 mg-CF borate 108 mg tablet (Move Free Weblance) lisinopril 20 mg tablet 20 mg PO QDAY #90 tabs 01/02/24 01/02/24 Rx Have you fallen in the past year?: Yes PFSH Medical History Dyspnea Hypoglycemia Vestibular migraine OAB (overactive bladder) Vertigo Vitamin D deficiency GERD (gastroesophageal reflux disease) Hiatal hernia Solitary kidney, acquired Mitral valve prolapse Cardiac murmur Syncope and collapse Hypertension Arthritis Surgical History History of back surgery Hx of cholecystectomy Total knee replacement status History of hysterectomy History of kidney surgery Family History Aunt Breast cancer Mother Pancreatic cancer Brother Pancreatic cancer Cancer of blood vessel Social History Smoking Status: Never smoker alcohol intake: never substance use type: does not use what type of physical activity do you participate in: walking seatbelt use: always do you feel safe at home: Yes additional social history: patient is retired from [employer] after 41 years [employer]- works at [employer] ROS Const Const: Positive for fatigue (hard to complete ADLs) and headache(s); Negative for weakness, daytime sleepiness or difficulty sleeping ENT ENT: Positive for headache(s); Negative for dizziness or Nosebleed/epistaxis Cardio Chest Pain: No Palpitations: Yes (upon laying down) feels like its: pounding (more content not included)... Normal [facility] Echo Completeon 12-26-2023 Echo Complete [facility] [address] [place] [address] Echo Complete 12/26/23 1006 MR#: [id number] Acct: [id number] Name: HILDA MULLINS ANN Rep #: [id number] : 1945 78 From: Ashlee Freeman MD Attending Dr: Dr. Davey Valente, Status: REG CLI Ordering Dr: Davey Valente DO Date: 12/26/23 Location: [facility] Sex: F C Admitted: Reason For Study: SYNCOPE/MURMUR/MVP Procedure This was a 2D Doppler, Color Flow transthoracic echocardiogram. Exam performed in department. Left Ventricle Normal size and thickness. The left ventricular ejection fraction is 65 %. Increased left atrial filling pressures. Right Ventricle Normal right ventricle. Atria The left atrium is severely enlarged. Normal right atrium. Mitral Valve Mitral valve posterior leaflet prolapse. Moderate to severe anteriorly directed mitral valve regurgitation. Tricuspid Valve Trivial tricuspid valve insufficiency. Normal pulmonary artery pressure. Aortic Valve Trisinus/trileaflet aortic valve. Pulmonic Valve The pulmonic valve is not well visualized. Great Vessels Normal sized aortic root. Pericardium/Pleural No pericardial effusion. MMode/2D Measurements Calculations LVIDd: 5.0 cm IVSd: 0.95 cm Ao root diam: 3.5 cm LVIDs: 3.3 cm LVPWd: 1.1 cm RVDd: 2.2 cm FS: 34.6 % LAV(MOD-sp4): 89.6 ml LVAd ap4: 23.8 cm2 SV(MOD-sp4): 48.3 ml LVLd ap4: 6.7 cm EDV(MOD-sp4): 68.0 ml EDV(sp4-el): 71.6 ml LVAs ap4: 11.0 cm2 LVLs ap4: 5.2 cm ESV(MOD-sp4): 19.7 ml ESV(sp4-el): 19.5 ml EF(MOD-sp4): 71.1 % EF(sp4-el): 72.8 % SV(sp4-el): 52.1 ml LA A4 area: 24.8 cm2 LA dimension(2D): 3.5 cm RA A4 area: 12.1 cm2 TAPSE: 1.9 cm Time Measurements MV dec time: 0.25 sec Doppler Measurements Calculations MV E max lynda: 131.9 cm/sec Lat Peak E' Lynda: 6.0 cm/sec Med Peak E' Lynda: 6.2 cm/sec MV A max lynda: 117.3 cm/sec E/E' lat: 21.9 E/E' med: 21.3 MV E/A: 1.1 MV V2 max: 135.7 cm/sec MV P1/2t max lynda: 130.3 cm/sec Ao V2 max: 147.8 cm/sec MV max P.4 mmHg MV P1/2t: 65.9 msec Ao max P.7 mmHg MV V2 mean: 79.4 cm/sec Ao V2 mean: 92.8 cm/sec MV mean P.9 mmHg MV dec slope: 579.4 cm/sec2 Ao mean P.2 mmHg MV V2 VTI: 33.6 cm MVA(P1/2t): 3.3 cm2 Ao V2 VTI: 23.6 cm AV (velocity ratio): 0.80 LV V1 max: 100.9 cm/sec MR max lynda: 564.4 cm/sec PA V2 max: 77.9 cm/sec LV V1 max P.1 mmHg MR max P.4 mmHg PA V2 mean: 53.4 cm/sec LV V1 mean P.2 mmHg MR mean lynda: 448.1 cm/sec LV V1 mean: 66.3 cm/sec MR mean P.4 mmHg LV V1 VTI: 18.9 cm MR VTI: 148.4 cm TR max lynda: 257.9 cm/sec TR max P.6 mmHg ECHO/Echo Complete Interpretation Summary The left ventricular ejection fraction is 65 %. Increased left atrial filling pressures The left atrium is severely enlarged. Mitral valve posterior leaflet prolapse. Moderate to severe anteriorly directed mitral valve regurgitation. Ordering Physician: Davey Valente Referring Physician: Davey Valente Performed By: Claudia Greene, ROSALIND, RVT 12/26/23 1610 Date Ashlee Freeman MD CC: Dr. Davey Valente DO Date Dictated: 12/26/23 1006 Date Transcribed: 12/26/231609 Botany Technician: Signed Normal [facility] Thoracic Spine Min 4 Viewson 12-17-2023 Thoracic Spine Min 4 Views [facility] [address] [place] [address] [id number] Thoracic Spine Min 4 Views MR#: [id number] Acct: [id number] Name: HILDA MULLINS Rep #: [id number] : 1945 F 77 From: Iain Juarez MD PCP: Dr. Davey Valente DO Status: REG CLI Study: Thoracic Spine Min 4 Views Date of Exam: 12/16 Exam# [id number] Ordering Dr: Araceli Brothers :[id number] STUDY: X-RAY - THORACIC SPINE REASON FOR EXAM: Female, 77 years old. Mid back pain TECHNIQUE: 4 view(s) of the thoracic spine were obtained. COMPARISON: 2017 FINDINGS: Normal kyphosis of the thoracic spine. There is no substantial scoliosis. There is demineralization of the thoracic spine with endplate spondylosis. There is multilevel disc space narrowing of the thoracic spine. The soft tissue structures are unremarkable. A pain catheter has been placed into the thecal sac since the previous study, leads in satisfactory position and extending to the T9 vertebral body. RAD/Thoracic Spine Min 4 Views IMPRESSION: Age consistent degenerative changes in the thoracic spine without evidence of fracture, paraspinal mass, or absent pedicle Satisfactory appearance of the neural catheter, it extends to the T9 vertebral body Electronically Signed: Howie Juarez MD at 8:33 EDT , CC: Araceli Brothers; Dr. Davey Valente DO Botany Technician: Signed Normal [facility] Absolute lymphocyte countOrd ered By: Shyla Randle on 05-17-2023 Lymphocytes Auto (Unsp spec) [#/Vol] 1.30 10*3/uL 0.83-4.51 [facility] Automated lymphocyte count a s percentage of total leukocytesOrdered By: Shyla Randle on 05-17-2023 Lymphocytes/100 WBC Auto (Unsp spec) 22.0 % 19-41 [facility] Basophil percentageOrdered B y: Shyla Randle on 05-17-2023 Basophils/100 WBC (Bld) 0.7 % 0-1 [facility] Bilirubin [Mass/Vol] 0.80 mg/dL 0.20-1.00 [facility] Comment on above: For patients on eltr ombopag therapy, use of Dimension [place] TBIL is not recommended. Chloride [Moles/Vol] 107 mmol/L 98-107 [facility] Eosinophils/100 WBC (Bld) 1.2 % 0-5 [facility] Glucose [Mass/Vol] 144 mg/dL 74-106 [facility] Comment on above: Fasting Glucose resu lt greater than or equal to 126 mg/dL suggests DIABETES MELLITUS per A.D.A. criteria. Hemoglobin (Bld) [Mass/Vol] 13.4 g/dL 12.0-15.0 [facility] Monocytes/100 WBC (Bld) 5.8 % 0-10 [facility] Neutrophils (Bld) [#/Vol] 4.1 10*3/uL 2.0-7.7 [facility] Neutrophils/100 WBC (Bld) 70.1 % 47-70 [facility] Potassium [Moles/Vol] 3.8 mmol/L 3.5-5.1 [facility] Protein [Mass/Vol] 7.2 g/dL 6.4-8.2 [facility] Sodium [Moles/Vol] 138 mmol/L 136-145 [facility] WBC (Bld) [#/Vol] 5.9 10*3/uL 4.4-11.0 [facility] Determination of erythrocyte mean corpuscular volume (MCV)Ordered By: Shyla Randle on 05-17-2023 MCV (RBC) [Entitic vol] 91.3 fL 81-99 [facility] Erythrocyte distribution wid th ratioOrdered By: Shyla Randle on 05-17-2023 Erythrocyte distribution width (RBC) [Ratio] 13.3 % 11.6-14.6 [facility] Erythrocyte distribution wid th standard deviationOrdered By: Shyla Randle on 05-17-2023 Erythrocyte distribution width (RBC) [Entitic vol] 44.7 fL 35.1-43.9 [facility] Hematocrit Auto (Bld) [Volum e fraction]Ordered By: Shyla Randle on 05-17-2023 Hematocrit (Bld) [Volume fraction] 41.9 % 37-47 [facility] Immature granulocytes/100 WB C Auto (Bld)Ordered By: Shyla Randle on 05-17-2023 Immature granulocytes/100 WBC (Bld) 0.200 % 0.0-0.9 [facility] Comment on above: IG% - Immature Granu locytes (promyelocytes, myelocytes and metamyelocytes) > 1% indicates that a LEFT SHIFT is Present. Laboratory - Chemistry and C hemistry - challengeOrdered By: Shyla Randle on 05-17-2023 Albumin/Globulin [Mass ratio] 1.1 {ratio} 0.9-2.4 [facility] ALP [Catalytic activity/Vol] 66 U/L 45-117 [facility] ALT [Catalytic activity/Vol] 21 U/L 13-56 [facility] CO2 [Moles/Vol] 28.0 mmol/L 21.0-32.0 [facility] Globulin (S) [Mass/Vol] 3.5 g/dL 2.2-4.2 [facility] Urea nitrogen/Creatinine [Mass ratio] 19.3 mg/mg 10-20 [facility] Laboratory - Hematology and Cell countsOrdered By: Shyla Randle on 05-17-2023 MCH (RBC) [Entitic mass] 29.2 pg 27.0-32.0 [facility] MCHC (RBC) [Mass/Vol] 32.0 g/dL 32-36 [facility] Nucleated RBC/100 WBC (Bld) [Ratio] 0 % 0-5 [facility] Platelet mean volume (Bld) [Entitic vol] 11.6 fL 6.2-12.0 [facility] Platelets (Bld) [#/Vol] 219 10*3/uL 150-450 [facility] No Panel InformationOrdered By: Shyla Randle on 05-17-2023 Estimated GFR (MDRD) Amer 74 mL/min >60 [facility] Comment on above: GFR Calc Estimated GFR (MDRD) Non-Af Amer 61 mL/min >60 [facility] Comment on above: Non- GFR Calc RBC Auto (Bld) [#/Vol]Ordere d By: Shyla Randle on 05-17-2023 RBC (Bld) [#/Vol] 4.59 10*6/uL 4.2-5.4 [facility] Serum or plasma calcium mariely urement (mass/volume)Ordered By: Shyla Randle on 05-17-2023 Calcium [Mass/Vol] 9.5 mg/dL 8.5-10.1 [facility] Serum or plasma creatinine m easurement (mass/volume)Ordered By: Shyla Randle on 05-17-2023 Creatinine [Mass/Vol] 0.93 mg/dL 0.55-1.02 [facility] Comment on above: The validity of the calculated GFR & GFRAA in patients over 70 years has not been determined. Clinical correlation is essential. Serum or plasma urea nitroge n measurement (mass/volume)Ordered By: Shyla Randle on 05-17-2023 Urea nitrogen [Mass/Vol] 18 mg/dL 7-18 [facility] Thin prep Papanicolaou smear with manual screeningOrdered By: Shyla Randle on 05-17-2023 Thin prep Papanicolaou smear with manual screening 3.7 g/dL 3.2-5.0 [facility] Thin prep Papanicolaou smear with manual screening 22 U/L 15-37 [facility] Thin prep Papanicolaou smear with manual screening 3 5-15 [facility] Absolute lymphocyte countOrd ered By: Shyla Randle on 11-14-2022 Lymphocytes Auto (Unsp spec) [#/Vol] 1.59 10*3/uL 0.83-4.51 [facility] Basophil percentageOrdered B y: Shyla Randle on 11-14-2022 Basophils/100 WBC (Bld) 0.7 % 0-1 [facility] Bilirubin [Mass/Vol] 0.60 mg/dL 0.20-1.00 [facility] Comment on above: For patients on eltr ombopag therapy, use of Dimension [place] TBIL is not recommended. Chloride [Moles/Vol] 108 mmol/L 98-107 [facility] Eosinophils/100 WBC (Bld) 0.9 % 0-5 [facility] Glucose [Mass/Vol] 119 mg/dL 74-106 [facility] Comment on above: Fasting Glucose resu lt from 100 to 125 mg/dL suggests IMPAIRED HOMEOSTASIS per A.D.A. criteria. Neutrophils (Bld) [#/Vol] 4.6 10*3/uL 2.0-7.7 [facility] Neutrophils/100 WBC (Bld) 67.2 % 47-70 [facility] Potassium [Moles/Vol] 3.8 mmol/L 3.5-5.1 [facility] Protein [Mass/Vol] 7.2 g/dL 6.4-8.2 [facility] Sodium [Moles/Vol] 140 mmol/L 136-145 [facility] WBC (Bld) [#/Vol] 6.9 10*3/uL 4.4-11.0 [facility] Blood erythrocytes count (nu mber/volume)Ordered By: Shyla Randle on 11-14-2022 RBC (Bld) [#/Vol] 4.61 10*6/uL 4.2-5.4 [facility] Blood hemoglobin measurement (mass/volume)Ordered By: Shyla Randle on 11-14-2022 Hemoglobin (Bld) [Mass/Vol] 13.8 g/dL 12.0-15.0 [facility] Blood lymphocytes/100 leukoc ytesOrdered By: Shyla Randle on 11-14-2022 Lymphocytes/100 WBC (Bld) 23.2 % 19-41 [facility] Blood monocytes/100 leukocyt esOrdered By: Shyla Randle on 11-14-2022 Monocytes/100 WBC (Bld) 7.7 % 0-10 [facility] Blood platelet mean volumeOr dered By: Shyla Randle on 11-14-2022 Platelet mean volume (Bld) [Entitic vol] 12.6 fL 6.2-12.0 [facility] Determination of erythrocyte mean corpuscular volume (MCV)Ordered By: Shyla Randle on 11-14-2022 MCV (RBC) [Entitic vol] 94.4 fL 81-99 [facility] Hematocrit Auto (Bld) [Volum e fraction]Ordered By: Shyla Randle on 11-14-2022 Hematocrit (Bld) [Volume fraction] 43.5 % 37-47 [facility] Laboratory - Chemistry and C hemistry - challengeOrdered By: Shyla Randle on 11-14-2022 ALP [Catalytic activity/Vol] 63 U/L 45-117 [facility] ALT [Catalytic activity/Vol] 22 U/L 13-56 [facility] CO2 [Moles/Vol] 27.0 mmol/L 21.0-32.0 [facility] Globulin (S) [Mass/Vol] 3.4 g/dL 2.2-4.2 [facility] Urea nitrogen/Creatinine [Mass ratio] 19.1 mg/mg 10-20 [facility] Laboratory - Hematology and Cell countsOrdered By: Shyla Rnadle on 11-14-2022 Erythrocyte distribution width (RBC) [Entitic vol] 45.1 fL 35.1-43.9 [facility] Erythrocyte distribution width (RBC) [Ratio] 13.1 % 11.6-14.6 [facility] Immature granulocytes/100 WBC (Bld) 0.300 % 0.0-0.9 [facility] Comment on above: IG% - Immature Granu locytes (promyelocytes, myelocytes and metamyelocytes) > 1% indicates that a LEFT SHIFT is Present. MCH (RBC) [Entitic mass] 29.9 pg 27.0-32.0 [facility] Nucleated RBC/100 WBC (Bld) [Ratio] 0 % 0-5 [facility] MCHC Auto (RBC) [Mass/Vol]Or dered By: Shyla Randle on 11-14-2022 MCHC (RBC) [Mass/Vol] 31.7 g/dL 32-36 [facility] No Panel InformationOrdered By: Shyla Randle on 11-14-2022 Estimated GFR (MDRD) Amer 62 mL/min >60 [facility] Comment on above: GFR Calc Estimated GFR (MDRD) Non-Af Amer 51 mL/min >60 [facility] Comment on above: Non- GFR Calc Platelets bldOrdered By: Rehana Randle on 11-14-2022 Platelets (Bld) [#/Vol] 245 10*3/uL 150-450 [facility] Serum or plasma albumin mariely urement (mass/volume)Ordered By: Shyla Randle on 11-14-2022 Albumin [Mass/Vol] 3.8 g/dL 3.2-5.0 [facility] Serum or plasma albumin/glob ulin mass ratioOrdered By: Shyla Randle on 11-14-2022 Albumin/Globulin [Mass ratio] 1.1 {ratio} 0.9-2.4 [facility] Serum or plasma calcium mariely urement (mass/volume)Ordered By: Shyla Randle on 11-14-2022 Calcium [Mass/Vol] 9.0 mg/dL 8.5-10.1 [facility] Serum or plasma creatinine m easurement (mass/volume)Ordered By: Shyla Randle on 11-14-2022 Creatinine [Mass/Vol] 1.10 mg/dL 0.55-1.02 [facility] Comment on above: The validity of the calculated GFR & GFRAA in patients over 70 years has not been determined. Clinical correlation is essential. Serum or plasma urea nitroge n measurement (mass/volume)Ordered By: Shyla Randle on 11-14-2022 Urea nitrogen [Mass/Vol] 21 mg/dL 7-18 [facility] Thin prep Papanicolaou smear with manual screeningOrdered By: Shyla Randle on 11-14-2022 Thin prep Papanicolaou smear with manual screening 20 U/L 15-37 [facility] Thin prep Papanicolaou smear with manual screening 5 5-15 [facility] Absolute lymphocyte countOrd ered By: Dr. Randle on 05-22-2022 Lymphocytes Auto (Unsp spec) [#/Vol] 1.46 10*3/uL 0.83-4.51 [facility] Basophil percentageOrdered B y: Dr. Randle on 05-22-2022 Basophils/100 WBC (Bld) 0.6 % 0-1 [facility] Bilirubin [Mass/Vol] 0.70 mg/dL 0.20-1.00 [facility] Comment on above: For patients on eltr ombopag therapy, use of Dimension [place] TBIL is not recommended. Chloride [Moles/Vol] 106 mmol/L 98-107 [facility] Eosinophils/100 WBC (Bld) 0.7 % 0-5 [facility] Glucose [Mass/Vol] 89 mg/dL 74-106 [facility] Neutrophils (Bld) [#/Vol] 4.7 10*3/uL 2.0-7.7 [facility] Neutrophils/100 WBC (Bld) 69.9 % 47-70 [facility] Potassium [Moles/Vol] 4.0 mmol/L 3.5-5.1 [facility] Protein [Mass/Vol] 7.3 g/dL 6.4-8.2 [facility] Sodium [Moles/Vol] 140 mmol/L 136-145 [facility] WBC (Bld) [#/Vol] 6.7 10*3/uL 4.4-11.0 [facility] Blood erythrocytes count (nu mber/volume)Ordered By: Dr. Randle on 05-22-2022 RBC (Bld) [#/Vol] 4.63 10*6/uL 4.2-5.4 [facility] Blood hemoglobin measurement (mass/volume)Ordered By: Dr. Randle on 05-22-2022 Hemoglobin (Bld) [Mass/Vol] 13.7 g/dL 12.0-15.0 [facility] Blood lymphocytes/100 leukoc ytesOrdered By: Dr. Randle on 05-22-2022 Lymphocytes/100 WBC (Bld) 21.8 % 19-41 [facility] Blood monocytes/100 leukocyt esOrdered By: Dr. Randle on 05-22-2022 Monocytes/100 WBC (Bld) 6.9 % 0-10 [facility] Blood platelet mean volumeOr dered By: Dr. Randle on 05-22-2022 Platelet mean volume (Bld) [Entitic vol] 11.2 fL 6.2-12.0 [facility] Determination of erythrocyte mean corpuscular volume (MCV)Ordered By: Dr. Randle on 05-22-2022 MCV (RBC) [Entitic vol] 91.1 fL 81-99 [facility] Hematocrit Auto (Bld) [Volum e fraction]Ordered By: Dr. Randle on 05-22-2022 Hematocrit (Bld) [Volume fraction] 42.2 % 37-47 [facility] Laboratory - Chemistry and C hemistry - challengeOrdered By: Dr. Randle on 05-22-2022 ALP [Catalytic activity/Vol] 69 U/L 45-117 [facility] ALT [Catalytic activity/Vol] 24 U/L 13-56 [facility] CO2 [Moles/Vol] 26.0 mmol/L 21.0-32.0 [facility] Globulin (S) [Mass/Vol] 3.7 g/dL 2.2-4.2 [facility] Urea nitrogen/Creatinine [Mass ratio] 17.6 mg/mg 10-20 [facility] Laboratory - Hematology and Cell countsOrdered By: Dr. Randle on 05-22-2022 Erythrocyte distribution width (RBC) [Entitic vol] 45.3 fL 35.1-43.9 [facility] Erythrocyte distribution width (RBC) [Ratio] 13.5 % 11.6-14.6 [facility] Immature granulocytes/100 WBC (Bld) 0.100 % 0.0-0.9 [facility] Comment on above: IG% - Immature Granu locytes (promyelocytes, myelocytes and metamyelocytes) > 1% indicates that a LEFT SHIFT is Present. MCH (RBC) [Entitic mass] 29.6 pg 27.0-32.0 [facility] Nucleated RBC/100 WBC (Bld) [Ratio] 0 % 0-5 [facility] MCHC Auto (RBC) [Mass/Vol]Or dered By: Dr. Randle on 05-22-2022 MCHC (RBC) [Mass/Vol] 32.5 g/dL 32-36 [facility] No Panel InformationOrdered By: Dr. Randle on 05-22-2022 Estimated GFR (MDRD) Amer 67 mL/min >60 [facility] Comment on above: GFR Calc Estimated GFR (MDRD) Non-Af Amer 56 mL/min >60 [facility] Comment on above: Non- GFR Calc Platelets bldOrdered By: Dr. Randle on 05-22-2022 Platelets (Bld) [#/Vol] 271 10*3/uL 150-450 [facility] Serum or plasma albumin mariely urement (mass/volume)Ordered By: Dr. Randle on 05-22-2022 Albumin [Mass/Vol] 3.6 g/dL 3.2-5.0 [facility] Serum or plasma albumin/glob ulin mass ratioOrdered By: Dr. Randle on 05-22-2022 Albumin/Globulin [Mass ratio] 1.0 {ratio} 0.9-2.4 [facility] Serum or plasma calcium mariely urement (mass/volume)Ordered By: Dr. Randle on 05-22-2022 Calcium [Mass/Vol] 9.7 mg/dL 8.5-10.1 [facility] Serum or plasma creatinine m easurement (mass/volume)Ordered By: Dr. Randle on 05-22-2022 Creatinine [Mass/Vol] 1.02 mg/dL 0.55-1.02 [facility] Comment on above: The validity of the calculated GFR & GFRAA in patients over 70 years has not been determined. Clinical correlation is essential. Serum or plasma urea nitroge n measurement (mass/volume)Ordered By: Dr. Randle on 05-22-2022 Urea nitrogen [Mass/Vol] 18 mg/dL 7-18 [facility] Thin prep Papanicolaou smear with manual screeningOrdered By: Dr. Randle on 05-22-2022 Thin prep Papanicolaou smear with manual screening 20 U/L 15-37 [facility] Thin prep Papanicolaou smear with manual screening 8 5-15 [facility] Basophil percentageOrdered B y: Dr. Ochoa on 03-23-2022 Creatinine [Mass/Vol] 0.9 mg/dL 0.55-1.02 [facility] No Panel InformationOrdered By: Dr. Ochoa on 03-23-2022 Bedside Estimated GFR (eGFR) > 60.0000 mL/min >60 [facility] Absolute lymphocyte counton 10-24-2021 Lymphocytes Auto (Unsp spec) [#/Vol] 1.56 10*3/uL 0.83-4.51 [facility] Work Phone: Basophil percentageon 2021 Basophils/100 WBC (Bld) 0.7 % 0-1 [facility] Work Phone: [phone] Bilirubin [Mass/Vol] 0.90 mg/dL 0.20-1.00 [facility] Work Phone: [phone] Comment on above: For patients on eltr ombopag therapy, use of Dimension [place] TBIL is not recommended. Chloride [Moles/Vol] 105 mmol/L 98-107 [facility] Work Phone: [phone] Cholesterol [Mass/Vol] 201 mg/dL <200 [facility] Work Phone: [phone] Comment on above: <200 mg/dL Desirable 200-240 mg/dL Borderline >240 mg/dL High Risk Eosinophils/100 WBC (Bld) 1.0 % 0-5 [facility] Work Phone: [phone] Glucose [Mass/Vol] 76 mg/dL 74-106 [facility] Work Phone: [phone] Neutrophils (Bld) [#/Vol] 3.9 10*3/uL 2.0-7.7 [facility] Work Phone: [phone] Neutrophils/100 WBC (Bld) 64.1 % 47-70 [facility] Work Phone: [phone] Potassium [Moles/Vol] 3.7 mmol/L 3.5-5.1 [facility] Work Phone: [phone] Protein [Mass/Vol] 7.5 g/dL 6.4-8.2 [facility] Work Phone: [phone] Sodium [Moles/Vol] 141 mmol/L 136-145 [facility] Work Phone: [phone] Triglyceride [Mass/Vol] 159 mg/dL <199 [facility] Work Phone: [phone] Comment on above: The drugs N-Acetylcy steine and Metamizole may falsely depress this assay.Serum Triglycerides Reference Interval Normal <150 mg/dL Borderline high 150 - 199 mg/dL High 200 - 499 mg/dL Very High > or = 500 mg/dL WBC (Bld) [#/Vol] 6.0 10*3/uL 4.4-11.0 [facility] Work Phone: Blood erythrocytes count (nu mber/volume)on 10-24-2021 RBC (Bld) [#/Vol] 4.86 10*6/uL 4.2-5.4 [facility] [facility] Work Phone: [phone] Blood hemoglobin measurement (mass/volume)on 10-24-2021 Hemoglobin (Bld) [Mass/Vol] 14.1 g/dL 12.0-15.0 [facility] Work Phone: Blood lymphocytes/100 leukoc yteson 10-24-2021 Lymphocytes/100 WBC (Bld) 25.8 % 19-41 [facility] Work Phone: Blood monocytes/100 leukocyt eson 10-24-2021 Monocytes/100 WBC (Bld) 8.1 % 0-10 [facility] Work Phone: Blood platelet mean volumeon 10-24-2021 Platelet mean volume (Bld) [Entitic vol] 12.5 fL 6.2-12.0 [facility] Work Phone: [phone] Determination of erythrocyte mean corpuscular volume (MCV)on 10-24-2021 MCV (RBC) [Entitic vol] 90.3 fL 81-99 [facility] Work Phone: Hematocrit Auto (Bld) [Volum e fraction]on 10-24-2021 Hematocrit (Bld) [Volume fraction] 43.9 % 37-47 [facility] Work Phone: Laboratory - Chemistry and C hemistry - challengeon 10-24-2021 ALP [Catalytic activity/Vol] 54 U/L 45-117 [facility] Work Phone: ALT [Catalytic activity/Vol] 17 U/L 13-56 [facility] Work Phone: CO2 [Moles/Vol] 28.0 mmol/L 21.0-32.0 [facility] Work Phone: Globulin (S) [Mass/Vol] 3.4 g/dL 2.2-4.2 [facility] Work Phone: Urea nitrogen/Creatinine [Mass ratio] 18.6 mg/mg 10-20 [facility] Work Phone: Laboratory - Hematology and Cell countson 10-24-2021 Erythrocyte distribution width (RBC) [Entitic vol] 44.8 fL 35.1-43.9 [facility] Work Phone: Erythrocyte distribution width (RBC) [Ratio] 13.6 % 11.6-14.6 [facility] Work Phone: Immature granulocytes/100 WBC (Bld) 0.300 % 0.0-0.9 [facility] Work Phone: Comment on above: IG% - Immature Granu locytes (promyelocytes, myelocytes and metamyelocytes) > 1% indicates that a LEFT SHIFT is Present. MCH (RBC) [Entitic mass] 29.0 pg 27.0-32.0 [facility] Work Phone: Nucleated RBC/100 WBC (Bld) [Ratio] 0 % 0-5 [facility] Work Phone: MCHC Auto (RBC) [Mass/Vol]on 10-24-2021 MCHC (RBC) [Mass/Vol] 32.1 g/dL 32-36 [facility] Work Phone: No Panel Informationon 10-24 Estimated GFR (MDRD) Amer 60 mL/min >60 [facility] Work Phone: Comment on above: GFR Calc Estimated GFR (MDRD) Non-Af Amer 50 mL/min >60 [facility] Work Phone: Comment on above: Non- GFR Calc Platelets bldon 10-24-2021 Platelets (Bld) [#/Vol] 235 10*3/uL 150-450 [facility] Work Phone: Serum or plasma albumin mariely urement (mass/volume)on 10-24-2021 Albumin [Mass/Vol] 4.1 g/dL 3.2-5.0 [facility] Work Phone: Serum or plasma albumin/glob ulin mass ratioon 10-24-2021 Albumin/Globulin [Mass ratio] 1.2 {ratio} 0.9-2.4 [facility] Work Phone: Serum or plasma calcium mariely urement (mass/volume)on 10-24-2021 Calcium [Mass/Vol] 9.6 mg/dL 8.5-10.1 [facility] Work Phone: Serum or plasma cholesterol in HDL measurement (mass/volume)on 10-24-2021 Cholesterol in HDL [Mass/Vol] 70 mg/dL >40 [facility] Work Phone: Comment on above: The drugs N-Acetylcy steine and Metamizole may falsely depress this assay. Reference Range HDL <40 mg/dL Low HDL Cholesterol HDL >or= 60 mg/dL High HDL Cholesterol Serum or plasma cholesterol in VLDL measurement (mass/volume)on 10-24-2021 Cholesterol in VLDL [Mass/Vol] 32 mg/dL 5-40 [facility] Work Phone: Serum or plasma creatinine m easurement (mass/volume)on 10-24-2021 Creatinine [Mass/Vol] 1.13 mg/dL 0.55-1.02 [facility] Work Phone: Comment on above: The validity of the calculated GFR & GFRAA in patients over 70 years has not been determined. Clinical correlation is essential. Serum or plasma low density lipoprotein (LDL) cholesterol measurement (mass/volume)on 10-24-2021 Cholesterol in LDL [Mass/Vol] 99 mg/dL 0-130 [facility] Work Phone: Serum or plasma urea nitroge n measurement (mass/volume)on 10-24-2021 Urea nitrogen [Mass/Vol] 21 mg/dL 7-18 [facility] Work Phone: Thin prep Papanicolaou smear with manual screeningon 10-24-2021 Thin prep Papanicolaou smear with manual screening 17 U/L 15-37 [facility] Work Phone: [phone] Thin prep Papanicolaou smear with manual screening 8 5-15 [facility] Work Phone: [phone] Absolute lymphocyte counton 07-06-2021 Lymphocytes Auto (Unsp spec) [#/Vol] 1.44 10*3/uL 0.83-4.51 [facility] Work Phone: Basophil percentageon 2021 Basophils/100 WBC (Bld) 0.7 % 0-1 [facility] Work Phone: Bilirubin [Mass/Vol] 0.80 mg/dL 0.20-1.00 [facility] Work Phone: [phone] Comment on above: For patients on eltr ombopag therapy, use of Dimension [place] TBIL is not recommended. Chloride [Moles/Vol] 108 mmol/L 98-107 [facility] Work Phone: Eosinophils/100 WBC (Bld) 1.3 % 0-5 [facility] Work Phone: Glucose [Mass/Vol] 111 mg/dL 74-106 [facility] Work Phone: [phone] Comment on above: Fasting Glucose resu lt from 100 to 125 mg/dL suggests IMPAIRED HOMEOSTASIS per A.D.A. criteria. Neutrophils (Bld) [#/Vol] 4.0 10*3/uL 2.0-7.7 [facility] Work Phone: Neutrophils/100 WBC (Bld) 66.7 % 47-70 [facility] Work Phone: Potassium [Moles/Vol] 4.1 mmol/L 3.5-5.1 [facility] Work Phone: Protein [Mass/Vol] 7.4 g/dL 6.4-8.2 [facility] Work Phone: Sodium [Moles/Vol] 141 mmol/L 136-145 [facility] Work Phone: WBC (Bld) [#/Vol] 6.0 10*3/uL 4.4-11.0 [facility] Work Phone: Blood erythrocytes count (nu mber/volume)on 07-06-2021 RBC (Bld) [#/Vol] 4.98 10*6/uL 4.2-5.4 [facility] Work Phone: Blood hemoglobin measurement (mass/volume)on 07-06-2021 Hemoglobin (Bld) [Mass/Vol] 14.6 g/dL 12.0-15.0 [facility] Work Phone: Blood lymphocytes/100 leukoc yteson 07-06-2021 Lymphocytes/100 WBC (Bld) 23.9 % 19-41 [facility] Work Phone: Blood monocytes/100 leukocyt eson 07-06-2021 Monocytes/100 WBC (Bld) 7.1 % 0-10 [facility] Work Phone: Blood platelet mean volumeon 07-06-2021 Platelet mean volume (Bld) [Entitic vol] 11.4 fL 6.2-12.0 [facility] Work Phone: Determination of erythrocyte mean corpuscular volume (MCV)on 07-06-2021 MCV (RBC) [Entitic vol] 89.0 fL 81-99 [facility] Work Phone: Hematocrit Auto (Bld) [Volum e fraction]on 07-06-2021 Hematocrit (Bld) [Volume fraction] 44.3 % 37-47 [facility] Work Phone: [phone] Laboratory - Chemistry and C hemistry - challengeon 07-06-2021 ALP [Catalytic activity/Vol] 66 U/L 45-117 [facility] Work Phone: ALT [Catalytic activity/Vol] 24 U/L 13-56 [facility] Work Phone: CO2 [Moles/Vol] 28.0 mmol/L 21.0-32.0 [facility] Work Phone: [phone] Globulin (S) [Mass/Vol] 3.5 g/dL 2.2-4.2 [facility] Work Phone: Urea nitrogen/Creatinine [Mass ratio] 16.3 mg/mg 10-20 [facility] Work Phone: Laboratory - Hematology and Cell countson 07-06-2021 Erythrocyte distribution width (RBC) [Entitic vol] 42.3 fL 35.1-43.9 [facility] Work Phone: Erythrocyte distribution width (RBC) [Ratio] 13.0 % 11.6-14.6 [facility] Work Phone: Immature granulocytes/100 WBC (Bld) 0.300 % 0.0-0.9 [facility] Work Phone: Comment on above: IG% - Immature Granu locytes (promyelocytes, myelocytes and metamyelocytes) > 1% indicates that a LEFT SHIFT is Present. MCH (RBC) [Entitic mass] 29.3 pg 27.0-32.0 [facility] Work Phone: Nucleated RBC/100 WBC (Bld) [Ratio] 0 % 0-5 [facility] Work Phone: MCHC Auto (RBC) [Mass/Vol]on 07-06-2021 MCHC (RBC) [Mass/Vol] 33.0 g/dL 32-36 [facility] Work Phone: No Panel Informationon 07-06 Estimated GFR (MDRD) Amer 66 mL/min >60 [facility] Work Phone: Comment on above: GFR Calc Estimated GFR (MDRD) Non-Af Amer 55 mL/min >60 [facility] Work Phone: Comment on above: Non- GFR Calc Platelets bldon 07-06-2021 Platelets (Bld) [#/Vol] 213 10*3/uL 150-450 [facility] Work Phone: Serum or plasma albumin mariely urement (mass/volume)on 07-06-2021 Albumin [Mass/Vol] 3.9 g/dL 3.2-5.0 [facility] Work Phone: Serum or plasma albumin/glob ulin mass ratioon 07-06-2021 Albumin/Globulin [Mass ratio] 1.1 {ratio} 0.9-2.4 [facility] Work Phone: Serum or plasma calcium mariely urement (mass/volume)on 07-06-2021 Calcium [Mass/Vol] 9.4 mg/dL 8.5-10.1 [facility] Work Phone: Serum or plasma creatinine m easurement (mass/volume)on 07-06-2021 Creatinine [Mass/Vol] 1.04 mg/dL 0.55-1.02 [facility] Work Phone: Comment on above: The validity of the calculated GFR & GFRAA in patients over 70 years has not been determined. Clinical correlation is essential. Serum or plasma urea nitroge n measurement (mass/volume)on 07-06-2021 Urea nitrogen [Mass/Vol] 17 mg/dL 7-18 [facility] Work Phone: Thin prep Papanicolaou smear with manual screeningon 07-06-2021 Thin prep Papanicolaou smear with manual screening 22 U/L 15-37 [facility] Work Phone: Thin prep Papanicolaou smear with manual screening 5 5-15 [facility] Work Phone: Absolute lymphocyte counton 04-07-2021 Lymphocytes Auto (Unsp spec) [#/Vol] 1.42 10*3/uL 0.83-4.51 [facility] Work Phone: Basophil percentageon 2020 Bilirubin [Mass/Vol] 0.80 mg/dL 0.20-1.00 [facility] Work Phone: Comment on above: For patients on eltr ombopag therapy, use of Dimension [place] TBIL is not recommended. Chloride [Moles/Vol] 105 mmol/L 98-107 [facility] Work Phone: Eosinophils/100 WBC (Bld) 0.8 % 0-5 [facility] Work Phone: [phone] Glucose [Mass/Vol] 98 mg/dL 74-106 [facility] Work Phone: [phone] Comment on above: Please note revised GLUCOSE reference range effective 2017. Neutrophils (Bld) [#/Vol] 4.0 10*3/uL 2.0-7.7 [facility] Work Phone: Potassium [Moles/Vol] 3.7 mmol/L 3.5-5.1 [facility] Work Phone: Protein [Mass/Vol] 7.7 g/dL 6.4-8.2 [facility] Work Phone: Sodium [Moles/Vol] 140 mmol/L 136-145 [facility] Work Phone: [phone] WBC (Bld) [#/Vol] 6.1 10*3/uL 4.4-11.0 [facility] Work Phone: [phone] Blood erythrocytes count (nu mber/volume)on 04-07-2021 RBC (Bld) [#/Vol] 5.20 10*6/uL 4.2-5.4 [facility] Work Phone: [phone] Blood hemoglobin measurement (mass/volume)on 04-07-2021 Hemoglobin (Bld) [Mass/Vol] 15.1 g/dL 12.0-15.0 [facility] Work Phone: Blood lymphocytes/100 leukoc yteson 04-07-2021 Lymphocytes/100 WBC (Bld) 23.2 % 19-41 [facility] Work Phone: Blood monocytes/100 leukocyt eson 04-07-2021 Monocytes/100 WBC (Bld) 9.6 % 0-10 [facility] Work Phone: Blood platelet mean volumeon 04-07-2021 Platelet mean volume (Bld) [Entitic vol] 12.8 fL 6.2-12.0 [facility] Work Phone: [phone] Determination of erythrocyte mean corpuscular volume (MCV)on 04-07-2021 MCV (RBC) [Entitic vol] 90.8 fL 81-99 [facility] Work Phone: Hematocrit Auto (Bld) [Volum e fraction]on 04-07-2021 Hematocrit (Bld) [Volume fraction] 47.2 % 37-47 [facility] Work Phone: Laboratory - Chemistry and C hemistry - challengeon 04-07-2021 ALP [Catalytic activity/Vol] 75 U/L 45-117 [facility] Work Phone: ALT [Catalytic activity/Vol] 36 U/L 13-56 [facility] Work Phone: CO2 [Moles/Vol] 26.0 mmol/L 21.0-32.0 [facility] Work Phone: Globulin (S) [Mass/Vol] 3.8 g/dL 2.2-4.2 [facility] Work Phone: Urea nitrogen/Creatinine [Mass ratio] 23.6 mg/mg 10-20 [facility] Work Phone: Laboratory - Hematology and Cell countson 04-07-2021 Basophils/100 WBC (Unsp spec) 0.7 % 0-1 [facility] Work Phone: Erythrocyte distribution width (RBC) [Entitic vol] 43.9 fL 35.1-43.9 [facility] Work Phone: Erythrocyte distribution width (RBC) [Ratio] 13.2 % 11.6-14.6 [facility] Work Phone: Immature granulocytes/100 WBC (Bld) 0.300 % 0.0-0.9 [facility] Work Phone: Comment on above: IG% - Immature Granu locytes (promyelocytes, myelocytes and metamyelocytes) > 1% indicates that a LEFT SHIFT is Present. MCH (RBC) [Entitic mass] 29.0 pg 27.0-32.0 [facility] Work Phone: Neutrophils/100 WBC (Bld) 65.4 % 47-70 [facility] Work Phone: Nucleated RBC/100 WBC (Bld) [Ratio] 0 % 0-5 [facility] Work Phone: MCHC Auto (RBC) [Mass/Vol]on 04-07-2021 MCHC (RBC) [Mass/Vol] 32.0 g/dL 32-36 [facility] Work Phone: No Panel Informationon 04-07 Estimated GFR (MDRD) Amer 71 mL/min >60 [facility] Work Phone: Comment on above: GFR Calc Estimated GFR (MDRD) Non-Af Amer 59 mL/min >60 [facility] Work Phone: Comment on above: Non- GFR Calc Platelets bldon 04-07-2021 Platelets (Bld) [#/Vol] 207 10*3/uL 150-450 [facility] Work Phone: Serum or plasma albumin mariely urement (mass/volume)on 04-07-2021 Albumin [Mass/Vol] 3.9 g/dL 3.2-5.0 [facility] Work Phone: Serum or plasma albumin/glob ulin mass ratioon 04-07-2021 Albumin/Globulin [Mass ratio] 1.0 {ratio} 0.9-2.4 [facility] Work Phone: Serum or plasma calcium mariely urement (mass/volume)on 04-07-2021 Calcium [Mass/Vol] 9.7 mg/dL 8.5-10.1 [facility] Work Phone: Serum or plasma creatinine m easurement (mass/volume)on 04-07-2021 Creatinine [Mass/Vol] 0.98 mg/dL 0.55-1.02 [facility] Work Phone: Comment on above: The validity of the calculated GFR & GFRAA in patients over 70 years has not been determined. Clinical correlation is essential. Serum or plasma urea nitroge n measurement (mass/volume)on 04-07-2021 Urea nitrogen [Mass/Vol] 23 mg/dL 7-18 [facility] Work Phone: Thin prep Papanicolaou smear with manual screeningon 04-07-2021 Thin prep Papanicolaou smear with manual screening 25 U/L 15-37 [facility] Work Phone: Thin prep Papanicolaou smear with manual screening 9 5-15 [facility] Work Phone: Vital Signs Date Time Vital Sign Value Performing Clinician Facility 09-05-2024 06:10-0400 Body mass index (BMI) [Ratio] 28 kg/m2 Dr. Davey Valente DO Work Phone: [facility] 09-05-2024 06:10-0400 Body weight 69.[address] Davey Valente DO Work Phone: [facility] 09-05-2024 06:10-0400 Diastolic blood pressure 78 mm[Hg] Dr. Davey powers DO Work Phone: [facility] 09-05-2024 06:10-0400 Heart rate 81 /min Dr. Davey Valente DO Work Phone: [facility] 09-05-2024 06:10-0400 Respiratory rate 18 /min Dr. Davey Valente DO Work Phone: [facility] 09-05-2024 06:10-0400 SaO2% (BldA) [Mass fraction] 95 % Dr. Davey Valente DO Work Phone: [facility] 09-05-2024 06:10-0400 Systolic blood pressure 119 mm[Hg] Dr. Davey tripp DO Work Phone: [facility] 07-16-2024 07:16-0400 Body height 157.[address] Davey Valente DO Work Phone: [facility] 07-16-2024 07:16-0400 Body weight 68.[address] Davey Valente DO Work Phone: [facility] 07-08-2024 00:29-0400 Body weight 68.[address] Davey Valente DO Work Phone: [facility] 06-16-2024 07:20-0400 Body height 157.[address] Davey Valente DO Work Phone: [facility] 06-16-2024 07:20-0400 Body weight 68.[address] Davey Valente DO Work Phone: [facility] 05-19-2024 14:14-0500 Body mass index (BMI) [Ratio] 26.9 kg/m2 Dr. Davey Valente DO Work Phone: [facility] 05-19-2024 14:09-0500 Body weight 66.[address] Davey Valente DO Work Phone: [facility] 05-19-2024 14:05-0500 Diastolic blood pressure 79 mm[Hg] Dr. Davey powers DO Work Phone: [facility] 05-19-2024 14:05-0500 Heart rate 65 /min Dr. Davey Valente DO Work Phone: [facility] 05-19-2024 14:05-0500 SaO2% (BldA) [Mass fraction] 99 % Dr. Davey Valente DO Work Phone: [facility] 05-19-2024 14:05-0500 Systolic blood pressure 144 mm[Hg] Dr. Davey tripp DO Work Phone: [facility] 05-14-2024 15:22-0500 Body mass index (BMI) [Ratio] 26.9 kg/m2 Dr. Davey Valente DO Work Phone: [facility] 05-14-2024 15:22-0500 Body weight 66.[address] Davey Valente DO Work Phone: [facility] 05-14-2024 15:22-0500 Diastolic blood pressure 79 mm[Hg] Dr. Davey powers DO Work Phone: [facility] 05-14-2024 15:22-0500 Heart rate 65 /min Dr. Davey Valente DO Work Phone: [facility] 05-14-2024 15:22-0500 Respiratory rate 18 /min Dr. Davey Valente DO Work Phone: [facility] 05-14-2024 15:22-0500 SaO2% (BldA) [Mass fraction] 99 % Dr. Davey Valente DO Work Phone: [facility] 05-14-2024 15:22-0500 Systolic blood pressure 144 mm[Hg] Dr. Davey tripp DO Work Phone: [facility] 04-10-2024 13:45-0500 Body mass index (BMI) [Ratio] 27.1 kg/m2 Dr. Davey Valente DO Work Phone: [facility] 04-10-2024 13:45-0500 Body weight 67.[address] Davey Valente DO Work Phone: [facility] 04-10-2024 13:45-0500 Diastolic blood pressure 75 mm[Hg] Dr. Davey powers DO Work Phone: [facility] 04-10-2024 13:45-0500 Heart rate 73 /min Dr. Davey Valente DO Work Phone: [facility] 04-10-2024 13:45-0500 Respiratory rate 18 /min Dr. Davey Vaelnte DO Work Phone: [facility] 04-10-2024 13:45-0500 SaO2% (BldA) [Mass fraction] 98 % Dr. Davey Valente DO Work Phone: [facility] 04-10-2024 13:45-0500 Systolic blood pressure 114 mm[Hg] Dr. Davey tripp DO Work Phone: [facility] 03-25-2024 09:34-0500 SaO2% (BldA) [Mass fraction] 99 % NA [facility] Comment on above: Order Comment: Specimen Type: ARTERIAL B LOOD SPECIMENOrdering Facility: [facility] Address: [address] [place], [place] [address] Performed By: #### A LLBG ####[facility] [id number] [place] [id number] [place] 03-25-2024 07:51-0500 SaO2% (BldA) [Mass fraction] 99 % NA CONCHITA [facility] Comment on above: Order Comment: Specimen Type: ARTERIAL B LOOD SPECIMENOrdering Facility: [facility] Address: [address] [place] [address] Performed By: #### A LLBG ####[facility] [id number] [address] OF [facility] 03-25-2024 03:18-0500 SaO2% (BldA) [Mass fraction] 99 % NA CONCHITA [facility] Comment on above: Order Comment: Specimen Type: ARTERIAL B LOOD SPECIMENOrdering Facility: [facility] Address: [address] [place] [address] Performed By: #### A LLBG ####[facility] [id number] [place] [id number] [place] 03-24-2024 23:51-0500 SaO2% (BldA) [Mass fraction] 100 % NA CONCHITA [facility] Comment on above: Order Comment: Specimen Type: ARTERIAL B LOOD SPECIMENOrdering Facility: [facility] Address: [address] [place] [address] Performed By: #### A LLBG ####[facility] [id number] [place] [id number] [place] 03-24-2024 21:15-0500 SaO2% (BldA) [Mass fraction] 100 % NA RELLINOV [facility] Comment on above: Order Comment: Specimen Type: ARTERIAL B LOOD SPECIMENOrdering Facility: [facility] Address: [address] [place], [place] [address] Performed By: #### A LLBG ####[facility] [id number] [address] [address] [place] [facility] 03-24-2024 19:54-0500 SaO2% (BldA) [Mass fraction] 100 % NA RELLINOV [facility] Comment on above: Order Comment: Specimen Type: ARTERIAL B LOOD SPECIMENOrdering Facility: [facility] Address: [address] [place] [address] Performed By: #### A LLBG ####[facility] [id number] [place] [id number] [place] 03-24-2024 17:25-0500 SaO2% (BldA) [Mass fraction] 99 % NA RELLINOV [facility] Comment on above: Order Comment: Specimen Type: ARTERIAL B LOOD SPECIMENOrdering Facility: [facility] Address: [address] [place] [address] Performed By: #### A LLBG ####[facility] [id number] [place] [id number] [place] 03-24-2024 16:41-0500 SaO2% (BldA) [Mass fraction] 100 % NA CONCHITA [facility] Comment on above: Order Comment: Specimen Type: ARTERIAL B LOOD SPECIMENOrdering Facility: [facility] Address: [address] [place] [address] Performed By: #### A LLBG ####[facility] [id number] [address] [address] [place] 03-24-2024 15:28-0500 SaO2% (BldA) [Mass fraction] 99 % NA RELLINOV [facility] Comment on above: Order Comment: Specimen Type: ARTERIAL B LOOD SPECIMENOrdering Facility: [facility] Address: [address] [place] [address] Performed By: #### A LLBG ####[facility] [id number] [address] [address] [place] 03-24-2024 14:27-0500 SaO2% (BldA) [Mass fraction] 99 % NA CONCHITA [facility] Comment on above: Order Comment: Specimen Type: ARTERIAL B LOOD SPECIMENOrdering Facility: [facility] Address: [address] [place] [address] Performed By: #### A LLBG ####[facility] [id number] [place] [id number] [place] 03-24-2024 13:35-0500 SaO2% (BldA) [Mass fraction] 100 % NA CONCHITA [facility] Comment on above: Order Comment: Specimen Type: ARTERIAL B LOOD SPECIMENOrdering Facility: [facility] Address: [address] [place] [address] Performed By: #### A LLBG ####[facility] [id number] [place] [id number] [place] 03-24-2024 12:48-0500 SaO2% (BldA) [Mass fraction] 99 % NA CONCHITA [facility] Comment on above: Order Comment: Specimen Type: ARTERIAL B LOOD SPECIMENOrdering Facility: [facility] Address: [address] [place], [place] [address] Performed By: #### A LLBG ####[facility] [id number] [place] [id number] [place] 03-24-2024 12:18-0500 SaO2% (BldA) [Mass fraction] 100 % NA CONCHITA [facility] Comment on above: Order Comment: Specimen Type: ARTERIAL B LOOD SPECIMENOrdering Facility: [facility] Address: [address] [place] [address] Performed By: #### A LLBG ####[facility] [id number] [place] [id number] [facility] 03-24-2024 11:29-0500 SaO2% (BldA) [Mass fraction] 100 % NA CONCHITA [facility] Comment on above: Order Comment: Specimen Type: ARTERIAL B LOOD SPECIMENOrdering Facility: [facility] Address: [address] [place] [address] Performed By: #### A LLBG ####[facility] [id number] [address] 03-24-2024 10:48-0500 SaO2% (BldA) [Mass fraction] 100 % NA CONCHITA [facility] Comment on above: Order Comment: Specimen Type: ARTERIAL B LOOD SPECIMENOrdering Facility: [facility] Address: [address] [place] [address] Performed By: #### A LLBG ####[facility] [id number] [address] 03-24-2024 07:59-0500 SaO2% (BldA) [Mass fraction] 99 % NA CONCHITA [facility] Comment on above: Order Comment: Specimen Type: ARTERIAL B LOOD SPECIMENOrdering Facility: [facility] Address: [address] [place] [address] Performed By: #### A LLMG ####[facility] [id number] [place] [id number] [place] 03-03-2024 10:47-0500 Diastolic blood pressure 70 mm[Hg] Herlinda Nesbitt MD Work Phone: [facility] 03-03-2024 10:47-0500 Systolic blood pressure 159 mm[Hg] Herlinda Nesbitt MD Work Phone: [facility] 03-03-2024 10:44-0500 Body height 157.5 cm Herlinda Nesbitt MD Work Phone: [facility] 03-03-2024 10:44-0500 Body mass index (BMI) [Ratio] 28.35 kg/m2 Herlinda Nesbitt MD Work Phone: [facility] 03-03-2024 10:44-0500 Body weight 70.31 kg Herlinda Nesbitt MD Work Phone: [facility] 03-03-2024 10:44-0500 Heart rate 75 /min Herlinda Nesbitt MD Work Phone: [facility] 03-03-2024 10:44-0500 Respiratory rate 16 /min Herlinda Nesbitt MD Work Phone: [facility] 03-03-2024 10:44-0500 SaO2% (BldA) [Mass fraction] 97 % Herlinda Nesbitt MD Work Phone: [facility] 01-31-2024 15:59-0400 Body height 157.5 cm Jeremias Tanner MD Work Phone: [facility] Comment on above: patient reports 01-31-2024 15:59-0400 Body mass index (BMI) [Ratio] 29.37 kg/m2 Jeremias Tanner MD Work Phone: [facility] 01-31-2024 15:59-0400 Body weight 72.85 kg Jeremias Tanner MD Work Phone: [facility] Comment on above: fully clothed with shoes on 01-31-2024 15:59-0400 Diastolic blood pressure 80 mm[Hg] Jeremias Tanner MD Work Phone: [facility] 01-31-2024 15:59-0400 Heart rate 81 /min Jeremias Tanner MD Work Phone: [facility] 01-31-2024 15:59-0400 SaO2% (BldA) [Mass fraction] 97 % Jeremias Tanenr MD Work Phone: [facility] 01-31-2024 15:59-0400 Systolic blood pressure 120 mm[Hg] Jeremias Huang Work Phone: [facility] 08-03-2022 15:45-0400 Body height 157.[address] Davey Valnete Work Phone: [facility] 08-03-2022 15:45-0400 Body mass index (BMI) [Ratio] 30 kg/m2 Dr. Davey Valente Work Phone: [facility] 08-03-2022 15:45-0400 Body weight 74.[address] Davey Valente Work Phone: [facility] 08-03-2022 15:45-0400 Diastolic blood pressure 90 mm[Hg] Dr. Davey powers Work Phone: [facility] 08-03-2022 15:45-0400 Systolic blood pressure 127 mm[Hg] Dr. Davey tripp Work Phone: [facility] 01-05-2022 10:23-0400 Body height 157.[address] Davey Valente Work Phone: [facility] Work Phone: 01-05-2022 10:15-0400 Body mass index (BMI) [Ratio] 29.8 kg/m2 Dr. Davey Valente Work Phone: [facility] Work Phone: 01-05-2022 10:15-0400 Body weight 73.[address] Davey Valente Work Phone: [facility] Work Phone: 01-05-2022 10:15-0400 Diastolic blood pressure 83 mm[Hg] Dr. Davey powers Work Phone: [facility] Work Phone: 01-05-2022 10:15-0400 Systolic blood pressure 137 mm[Hg] Dr. Davey tripp Work Phone: [facility] Work Phone: Encounters Encounter Date Encounter Type Care Provider Facility Start: 09-05-2024 End: 09-05-2024 Patient encounter procedure Soraya Mark MA -[facility] Work Phone: Start: 09-05-2024 End: 09-05-[address] Davey Valente DO Work Phone: [facility] Work Phone: Start: 08-29-2024 End: 08-29-[address] Davey Valente DO Work Phone: [facility] Work Phone: Start: 08-29-2024 End: 08-29-[address] Shyla Randle MD -Laboratory Pool Work Phone: Start: 08-29-2024 End: 08-29-2024 ambulatory [facility] Facility:[facility] Start: 08-17-2024 ambulatory [facility] Facility: [facility] Start: 08-05-2024 End: 08-05-[address] Davey Valente DO Work Phone: [facility] Work Phone: Start: 08-05-2024 End: 08-05-[address] Shyla Randle MD -Laboratory, Pool Work Phone: Start: 08-05-2024 End: 08-05-2024 ambulatory [facility] Facility:[facility] Start: 07-30-2024 End: 08-06-2024 ambulatory [facility] Facility:[facility] Start: 07-30-2024 End: 08-06-[address] Kenny Alejandro MD -Cardiac Rehab Work Phone: Start: 07-09-[address] Kenny Alejandro MD -Cardiac Rehab Work Phone: Start: 07-07-2024 End: 07-07-[address] Davey Valente DO Work Phone: [facility] Work Phone: Start: 07-07-2024 End: 07-07-[address] Kenny Alejandro MD -Cardiac Rehab Work Phone: Start: 07-04-2024 Non-patient / Non-visit Dr. Kim MENDOZA -[facility] Start: 07-04-2024 End: 07-04-[address] Davey Valente DO Work Phone: [facility] Work Phone: Start: 07-04-2024 End: 07-04-2024 Patient encounter procedure Soraya Mark PA -Cardiovascular Services Work Phone: Start: 07-04-2024 End: 07-04-2024 ambulatory [facility] Facility:[facility] Start: 06-27-2024 End: 06-27-2024 ambulatory Erica Min RN [facility] Start: 06-27-2024 End: 06-27-2024 Patient encounter procedure Erica Min RN [facility] Start: 06-20-[address] Kenny Alejandro MD -Cardiac Rehab Work Phone: Start: 06-09-2024 End: 06-09-[address] Davey Valente DO Work Phone: [facility] Work Phone: Start: 06-09-2024 End: 06-09-2024 Patient encounter procedure Soraya CLAYTON -Laboratory Work Phone: Start: 06-09-2024 End: 06-09-2024 ambulatory Kern Valleyman Facility:[facility] Start: 06-06-2024 End: 06-06-2024 ambulatory Kenny Alejandro Facility:[facility] Start: 06-06-2024 End: 06-06-[address] Kenny Alejandro MD -Cardiac Rehab Work Phone: Start: 05-19-2024 End: 05-19-[address] Kenny Alejandro MD -Cardiac Rehab Work Phone: Start: 05-19-2024 End: 05-19-2024 ambulatory Kenny Alejandro Facility:[facility] Start: 05-14-2024 End: 05-14-2024 Patient encounter procedure Soraya CLAYTON -[facility] Work Phone: Start: 05-14-2024 End: 05-14-2024 ambulatory [facility] Facility:[facility] Start: 04-30-2024 End: 04-30-2024 ambulatory Rachael Mccrary [facility] Start: 04-30-2024 End: 04-30-2024 [facility] encounter [facility] Start: 04-30-2024 End: 04-30-2024 ambulatory [facility] Facility:[facility] Start: 04-10-2024 End: 04-10-2024 ambulatory [facility] Facility:[facility] Start: 04-10-2024 End: 04-10-2024 Patient encounter procedure Soraya CLAYTON -[facility] Work Phone: Start: 04-10-2024 End: 04-10-2024 ambulatory [facility] Facility:[facility] Start: 03-31-2024 End: 03-31-2024 Orders Only A Mickey Arango MD Work Phone: Cardiothoracic Comment on above: Surgery follow-up (P rimary Dx); Chest pain, unspecified type Start: 03-27-2024 ambulatory Kenny Alejandro [facility] Start: 03-24-2024 End: 03-31-2024 Evaluation and management of inpatient Esme ARANGO Facility:[facility] Start: 03-20-2024 End: 03-20-2024 ambulatory Sonya High RN [facility] Start: 03-20-2024 End: 03-20-2024 Patient encounter procedure Sonya High RN [facility] Start: 03-04-2024 End: 03-04-2024 Admission to same day surgery center Anesthesia Clearance Work Phone: [facility] Work Phone: Start: 03-04-2024 End: 03-04-2024 Patient encounter status WAGNER Arango MD Work Phone: [facility] Start: 03-04-2024 End: 03-04-2024 ambulatory A Mickey Arango MD Work Phone: Cardiothoracic Comment on above: Patient Education Start: 03-04-2024 End: 03-04-2024 Patient encounter procedure Esme Arango MD Work Phone: Cardiothoracic Comment on above: Nonrheumatic mitral valve regurgitation (Primary Dx) Pre-op testing (Prim andi Dx) Encounter for preope rative anesthesiology assessment for cardiac surgery (Primary Dx) Start: 03-03-2024 End: 03-03-2024 [facility] Facility:[facility] Start: 03-03-2024 End: 03-03-2024 Patient encounter procedure Rain Marrufo DDS Work Phone: Dentistry Comment on above: Preoperative clearan ce (Primary Dx); Mitral valve disorder Start: 03-03-2024 End: 03-03-2024 Preoperative state Rain Marrufo DDS Work Phone: [facility] Work Phone: Start: 03-03-2024 End: 03-03-2024 [facility] Facility:[facility] Start: 03-03-2024 End: 03-03-2024 Patient encounter procedure Herlinda Nesbitt MD Work Phone: Cardiology Comment on above: Preop cardiovascular exam (Primary Dx); Essential hypertension, benign; Severe mitral regurgitation; Mitral valve prolapse Start: 03-03-2024 End: 03-03-2024 Patient encounter status Herlinda Nesbitt MD Work Phone: [facility] Start: 03-03-2024 End: 03-03-2024 Subsequent hospital visit by physician Xr Chest Main J1 Work Phone: Radiology Comment on above: Pre-operative cardio vascular examination [Z01.810] Start: 03-03-2024 End: 03-03-2024 ambulatory [facility] Facility:[facility] Start: 03-03-2024 Encounter for preprocedural cardiovascular examination KEITHOKSANA BARAHONA THANLIAM [facility] Start: 02-27-2024 End: 02-27-2024 Telephone encounter Lionel Singleton DMD Work Phone: Dentistry Comment on above: Appointment Start: 02-25-2024 End: 02-25-2024 Patient entered into trial Research Nurse Work Phone: [facility] Start: 02-25-2024 End: 02-25-2024 Telephone encounter Research Nurse Work Phone: Cardiothoracic Comment on above: Informed Consent Start: 02-20-2024 End: 02-26-2024 Patient encounter status A Mickey Arango MD Work Phone: [facility] Start: 02-20-2024 End: 02-26-2024 Telephone encounter Esme Arango MD Work Phone: Cardiothoracic Comment on above: Insurance Inquiry Referral Information ; Pre-Op CTHO Consult; Cardiac Preop Checklist Start: 02-11-2024 End: 02-11-2024 Telephone encounter Lena Jensen APRN.CNP Work Phone: [facility] Start: 02-11-2024 End: 02-11-2024 ambulatory [facility] Facility:[facility] Start: 02-06-2024 End: 02-06-2024 ambulatory [facility] Facility:[facility] Start: 02-04-2024 End: 02-04-2024 Telephone encounter Jeremias Tanner MD Work Phone: [facility] Comment on above: Patient Update Start: 01-31-2024 End: 01-31-2024 Patient encounter procedure Jeremias Tanner MD Work Phone: [facility] Comment on above: Syncope, unspecified syncope type (Primary Dx); Pre-op testing; Mitral valve prolapse; Nonrheumatic mitral valve regurgitation Start: 01-31-2024 End: 01-31-2024 Patient encounter status Jeremias Tanner MD Work Phone: [facility] Start: 01-31-2024 End: 01-31-2024 ambulatory JEREMIAS TANNER Facility:[facility] Start: 01-31-2024 Encounter for other preprocedural examination JEREMIAS TANNER [facility] Start: 01-28-2024 End: 01-28-2024 ambulatory [facility] Facility:[facility] Start: 01-18-2024 End: 01-18-2024 Telephone encounter Jeremias Tanner MD Work Phone: [facility] Start: 01-17-2024 End: 01-17-2024 ambulatory [facility] Facility:[facility] Start: 01-09-2024 End: 01-09-2024 ambulatory [facility] Facility:[facility] Start: 01-07-2024 ambulatory [facility] Start: 01-07-2024 End: 01-07-2024 ambulatory [facility] Facility:[facility] Start: 01-04-2024 End: 01-04-2024 ambulatory [facility] Facility:[facility] Start: 01-02-2024 End: 01-02-2024 ambulatory [facility] Facility:[facility] Start: 12-26-2023 ambulatory [facility]: [facility] Start: 12-26-2023 End: 12-26-2023 ambulatory [facility] Facility:[facility] Start: 12-17-2023 End: 12-17-2023 ambulatory [facility] Facility:[facility] Start: 05-17-2023 End: 05-17-2023 ambulatory [facility] Work Phone: Start: 05-17-2023 End: 05-17-2023 Patient encounter procedure [facility] Work Phone: Start: 11-14-2022 End: 11-14-[address] Davey Valente Work Phone: [facility] Work Phone: Start: 11-14-2022 End: 11-14-[address] Davey Valente Work Phone: [facility] Work Phone: Start: 11-06-2022 End: 11-06-[address] Davey Valente Work Phone: [facility] Work Phone: Start: 11-06-2022 End: 11-06-[address] Davey Valente Work Phone: [facility]-Outpatient Breast Imaging Work Phone: Start: 10-04-2022 End: 10-04-[address] Davey Valente Work Phone: [facility] Work Phone: Start: 08-31-2022 End: 08-31-[address] Davey Valente Work Phone: [facility] Work Phone: Start: 08-03-2022 End: 08-03-[address] Davey Valente Work Phone: [facility] Work Phone: Start: 07-20-2022 End: 07-20-[address] Davey Valente Work Phone: [facility] Work Phone: Start: 05-22-2022 End: 05-22-[address] Davey Valente Work Phone: [facility] Work Phone: Start: 05-22-2022 End: 05-22-[address] Davey Valente Work Phone[facility] Start: 04-05-2022 End: 04-05-[address] Davey Valente Work Phone: [facility] Start: 03-23-2022 End: 03-23-[address] Davey Valente Work Phone: [facility] Work Phone: Start: 03-23-2022 End: 03-23-[address] Davey Valente Work Phone: [facility] Start: 02-28-2022 End: 02-28-[address] Davey Valente Work Phone: [facility] Start: 02-23-2022 End: 02-23-[address] Davey Valente Work Phone: [facility] Work Phone: Start: 02-23-2022 End: 02-23-[address] Davey Valente Work Phone[facility] Start: 01-05-2022 End: 01-05-[address] Davey Valente Work Phone: [facility] Start: 11-03-2021 End: 11-03-2021 Patient encounter procedure [facility]-Outpatient Bone Densitometry Start: 10-24-2021 End: 10-24-2021 Patient encounter procedure [facility] Start: 07-06-2021 End: 07-06-2021 Patient encounter procedure [facility]-Laboratory Start: 04-14-2021 End: 04-14-2021 Patient encounter procedure [facility]-Cat Scan, [facility] Start: 04-07-2021 Patient encounter procedure [facility]-Laboratory, Pool Start: 03-24-2021 Patient encounter procedure [facility]-Ultrasound, [facility] Start: 08-26-2020 ambulatory CLAUDIA GOETZ [facility] Ambulatory Procedures Date Procedure Procedure Detail Performing Clinician Start: 05-14-2024 Evaluation of diagno stic study results Dr. Davey Valente DO Work Phone: Start: 04-30-2024 Measurement of renal function Dr. Davey Valente DO Work Phone: Comment on above: GFR Calc Start: 04-10-2024 X-ray of chest, PA a nd lateral views Dr. Davey Valente DO Work Phone: Start: 04-10-2024 Evaluation of diagno stic study results Dr. Davey Valente DO Work Phone: Start: 03-03-2024 Antibody screen WAGNER LOUIE Comment on above: Order Comment: Speci men Type: BLOOD SPECIMENOrdering Facility: [facility] Address: [address] [place] [address] Performed By: #### T [id number] ####[facility] BLOOD BANKCLIA [id number] [address] [place] Start: 03-03-2024 Radiologic exam ches t 2 views A Mickey Arango MD Work Phone: Start: 03-03-2024 Echocardiography NA YVES QUESADA Start: 11-06-2022 Screening mammography Reina Valente Work Phone: Start: 03-23-2022 MRI of lumbar spine with contrast Dr. Davey Valente Work Phone: Start: 02-23-2022 Plain x-ray of pelvi s and lower extremity Dr. Davey Valente Work Phone: Start: 02-23-2022 Plain X-ray of shoulder Dr. Davey Valente Work Phone: Start: 02-23-2022 X-ray of lumbosacral spine Dr. Davey Valente Work Phone: Start: 11-03-2021 Dual energy X-ray absorptiometry Start: 11-03-2021 Screening mammography Start: 04-14-2021 Computed tomography of abdomen and pelvis with contrast Start: 03-24-2021 US urinary tract History of repair of inguinal hernia S/P inguinal hernia repair Dr. Davey Valente DO Work Phone: Plan of Treatment Date Care Activity Detail Author Start: 03-30-2027 Diabetes Screening Diabetes Screening [facility] Start: 03-03-2027 Diabetes Screening Diabetes Screening [facility] Start: 09-05-2024 Evaluation of diagnostic study results [facility] Start: 05-19-2024 Patient referral [facility] Work Phone: Start: 05-13-2024 End: 05-13-2024 Patient encounter procedure 05/13/2024 11:00 AM EST Office Visit Cardiology [address] [id number] Herlinda Nesbitt MD [address] [place] [address] OPEN HEART Cardiology Comment on above: OPEN HEART Start: 04-09-2024 Advance Directive Discussion Advance Directive Discussion [facility] Start: 04-08-2024 End: 04-08-2024 Follow-up encounter 04/08/2024 2:45 PM EST Results Only Cardiology [address] [place] [address] Surgery follow-up Cardiology Comment on above: Surgery follow-up Start: 04-08-2024 End: 04-08-2024 ambulatory 04/08/2024 2:30 PM EST Results Only [facility] [employer] [facility] [address] [place] [address] CBC CMP [facility] [employer] [facility] Comment on above: CBC CMP Start: 04-08-2024 End: 04-08-2024 Patient encounter procedure Radiology Comment on above: Surgery follow-up Hospital Discharge J 09-08-19 Start: 03-31-2024 End: 03-24-2025 CBC panel - Blood by Automated count COMPLETE BLOOD COUNT Lab Routine Chest pain, unspecified type Expected: 03/31/2024, Expires: 06/30/2024 [facility] Work Phone: Comment on above: Expected: 03/31/2024, Expires: Start: 03-31-2024 End: 06-30-2024 Comprehensive metabolic 2000 panel - Serum or Plasma COMPREHENSIVE METABOLIC PANEL Lab Routine Surgery follow-up Expected: 03/31/2024, Expires: 06/30/2024 [facility] Comment on above: Expected: 03/31/2024, Expires: Start: 03-24-2024 End: 03-24-2024 Admission to same day surgery center 03/24/2024 7:00 AM EST - 03/24/2024 12:16 PM EST Surgery Admitting [address] [place] [address] Esme Arango MD [address] [place] [address] MVr Sternotomy (2) Admitting Comment on above: MVr Sternotomy (2) Start: 03-24-2024 Subsequent hospital visit by physician 03/24/2024 7:00 AM EST Hospital Encounter Admitting [address] [place] [address] Esme Arango MD [address] [place] [address] Pre-operative cardiovascular examination [Z01.810], 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] Admitting Comment on above: Pre-operative cardiovascular examination [Z01.810], 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] Start: 03-24-2024 End: 03-24-2024 Vlvp mitral valve w/card byp w/prostc ring VALVULOPLASTY MITRAL W/ RING AND BYPASS Pre-operative cardiovascular examination Mitral valve disorder 03/24/2024 7:00 AM EST PRITI NICOLE CT & VAS Start: 03-11-2024 Covid-19 Vaccine () Covid-19 Vaccine () [facility] Start: 03-04-2024 End: 03-04-2024 Patient encounter procedure Cardiothoracic Comment on above: MVr Sternotomy (2) Start: 03-03-2024 End: 03-03-2024 Patient encounter procedure Cardiology Comment on above: Pre-operative cardiovascular examination [Z01.810] Pre OP Clearance MITRAL VALVE DISORDE R OHS AMIE- outpatient consult placed 02/26/2024 Start: 02-26-2024 End: 05-27-2024 aPTT in Platelet poor plasma by Coagulation assay ACTIVATED PARTIAL THROMBOPLASTIN TIME Lab Routine Shortness of breath Pre-operative cardiovascular examination Mitral valve disorder Expected: 02/26/2024 (Approximate), Expires: 05/27/2024 [facility] Comment on above: Expected: 02/26/2024 (Approximate), Expi res: 05/27/2024 Start: 02-26-2024 End: 05-27-2024 CBC W Auto Differential panel - Blood COMPLETE BLOOD COUNT AND DIFFERENTIAL Lab Routine Pre-operative cardiovascular examination Mitral valve disorder Expected: 02/26/2024, Expires: 05/27/2024 [facility] Comment on above: Expected: 02/26/2024, Expires: Start: 02-26-2024 End: 05-27-2024 Comprehensive metabolic 2000 panel - Serum or Plasma COMPREHENSIVE METABOLIC PANEL Lab Routine Pre-operative cardiovascular examination Mitral valve disorder Expected: 02/26/2024, Expires: 05/27/2024 [facility] Work Phone: Comment on above: Expected: 02/26/2024, Expires: Start: 02-26-2024 End: 05-27-2024 CONFIRM BLOOD TYPE CONFIRM BLOOD TYPE Blood Bank Routine Pre-operative cardiovascular examination Mitral valve disorder Expected: 02/26/2024, Expires: 05/27/2024 [facility] Comment on above: Expected: 02/26/2024, Expires: Start: 02-26-2024 End: 05-27-2024 Lactate dehydrogenase [Enzymatic activity/volume] in Serum or Plasma LACTATE DEHYDROGENASE Lab Routine Pre-operative cardiovascular examination Mitral valve disorder Expected: 02/26/2024, Expires: 05/27/2024 [facility] Comment on above: Expected: 02/26/2024, Expires: Start: 02-26-2024 End: 05-27-2024 PT panel - Platelet poor plasma by Coagulation assay PROTHROMBIN TIME Lab Routine Pre-operative cardiovascular examination Mitral valve disorder Expected: 02/26/2024 (Approximate), Expires: 05/27/2024 [facility] Comment on above: Expected: 02/26/2024 (Approximate), Expi res: 05/27/2024 Start: 02-26-2024 End: 05-27-2024 TYPE AND SCREEN,30 DAY TYPE AND SCREEN,30 DAY Blood Bank Routine Pre-operative cardiovascular examination Mitral valve disorder Expected: 02/26/2024, Expires: 05/27/2024 [facility] Comment on above: Expected: 02/26/2024, Expires: Start: 02-26-2024 End: 05-27-2024 URINALYSIS, DIPSTICK ONLY URINALYSIS, DIPSTICK ONLY Lab Routine Pre-operative cardiovascular examination Mitral valve disorder Expected: 02/26/2024, Expires: 05/27/2024 [facility] Comment on above: Expected: 02/26/2024, Expires: Start: 12-09-2023 Covid-19 Vaccine ( season) Covid-19 Vaccine ( season) [facility] Start: 12-09-2023 Influenza vaccination Influenza Vaccine (#1) [facility] Start: 04-09-2023 Advance Directive Discussion Advance Directive Discussion [facility] Start: 04-05-2022 Patient referral [facility] Work Phone: Start: 12-20-2018 RSV Vaccine (1 - 1-dose 75+ series) RSV Vaccine (1 - 1-dose 75+ series) [facility] Start: 05-14-2011 Diabetes Screening Diabetes Screening [facility] Start: 12-20-2008 Pneumococcal Vaccine: 65+ (1 of 1 - PCV) Pneumococcal Vaccine: 65+ (1 of 1 - PCV) [facility] Start: 04-10-1999 Urine microalbumin profile DTaP,Tdap,Td Vaccine (1 - Tdap) [facility] Start: 12-20-1993 Shingrix Vaccine (1 of 2) Shingrix Vaccine (1 of 2) [facility] [facility] Start: 12-20-1961 Annual PCP Team Chronic Disease Visit Annual PCP Team Chronic Disease Visit [facility] Start: 12-20-1961 Anxiety Screening Anxiety Screening [facility] Start: 12-20-1961 BP Controlled (<130/80) BP Controlled (<130/80) [facility] Start: 12-20-1961 Depression Screening Depression Screening [facility] End: 03-01-2025 CT Chest WO contrast CT CHEST WO IVCON Radiology Routine Syncope, unspecified syncope type Pre-op testing Mitral valve prolapse 1 Occurrences starting 01/31/2024 until 03/01/2025 [facility] Work Phone: Comment on above: 1 Occurrences starting 01/31/2024 until 03/01/2025 End: 02-25-2025 ECG COMPLETE ECG COMPLETE ECG Routine Pre-operative cardiovascular examination Mitral valve disorder 1 Occurrences starting 02/26/2024 until 02/25/2025 [facility] Comment on above: 1 Occurrences starting 02/26/2024 until 02/25/2025 End: 03-31-2025 ECG COMPLETE ECG COMPLETE ECG Routine Surgery follow-up 1 Occurrences starting 03/31/2024 until 03/31/2025 [facility] Comment on above: 1 Occurrences starting 03/31/2024 until 03/31/2025 End: 02-25-2025 Echocardiography ECHO Cardiology Routine Pre-operative cardiovascular examination Mitral valve disorder 1 Occurrences starting 02/26/2024 until 02/25/2025 [facility] Comment on above: 1 Occurrences starting 02/26/2024 until 02/25/2025 MR Lumbar spine WO a nd W contrast IV [facility] Work Phone: Patient referral [facility] Work Phone: End: 03-27-2025 XR Chest PA and Lateral XR CHEST 2V FRONTAL/LAT Radiology Routine Pre-operative cardiovascular examination Mitral valve disorder 1 Occurrences starting 02/26/2024 until 03/27/2025 [facility] Comment on above: 1 Occurrences starting 02/26/2024 until 03/27/2025 End: 04-30-2025 XR Chest PA and Lateral XR CHEST 2V FRONTAL/LAT Radiology Routine Surgery follow-up 1 Occurrences starting 03/31/2024 until 04/30/2025 [facility] Comment on above: 1 Occurrences starting 03/31/2024 until 04/30/2025 Immunizations Immunization Date Immunization Notes Care Provider [facility] 01-31-2023 influenza virus vaccine, unspecified formulation Jeremias Tanner MD Work Phone: [facility] 07-01-2020 Covid (Pfizer) [facility] 06-10-2020 Covid (Pfizer) [facility] 01-21-2020 Influenza virus vaccine W [facility] 04-09-1999 tetanus and diphther ia toxoids, adsorbed, preservative free, for adult use (2 Lf of tetanus toxoid and 2 Lf of diphtheria toxoid) Jeremias Tanner MD Work Phone: [facility] Payers Date Payer Category Payer Self-pay [id number] 2016 [facility] [place] [id number] 2016 Unknown [place] [id number] 2016-Present [phone] [address] [place] [address] Indemnity [id number] 2010 Unknown [id number] 2008 Medicare [id number] 2008 Medicare [id number] Unknown [id number] 2.16.840.1.256020.3.579. 2.462 Unknown [id number] 2.16.840.1.489131.3.579. 2.462 Unknown [id number] 2.16.840.1.304255.3.579. 2.462 Unknown [id number] 2.16.840.1.085852.3.579. 2.462 Unknown [id number] 2.16.840.1.437470.3.579. 2.462 Unknown [id number] 2.16.840.1.136325.3.579. 2.462 Unknown [id number] 2.16.840.1.296601.3.579. 2.462 Unknown [id number] 2.16.840.1.991895.3.579. 2.462 Unknown [id number] 2.16.840.1.775577.3.579. 2.462 Unknown [id number] 2.16.840.1.447390.3.579. 2.462 Unknown [id number] 2.16.840.1.755694.3.579. 2.462 Unknown [id number] 2.16.840.1.870204.3.579. 2.462 Unknown [id number] 2.16.840.1.135525.3.579. 2.462 Unknown [id number] 2.16.840.1.948787.3.579. 2.462 Unknown [id number] 2.16.840.1.571213.3.579. 2.462 Unknown [id number] 2.16.840.1.214820.3.579. 2.462 Unknown [id number] 2.16.840.1.784559.3.579. 2.462 Unknown [id number] 2.16.840.1.140010.3.579. 2.462 Unknown [id number] 2.16.840.1.985579.3.579. 2.462 Unknown [id number] 2.16.840.1.096618.3.579. 2.462 Unknown [id number] 2.16.840.1.498861.3.579. 2.462 Unknown [id number] 2.16.840.1.136829.3.579. 2.462 Unknown [id number] 2.16.840.1.711320.3.579. 2.462 Unknown [id number] 2.16.840.1.708560.3.579. 2.462 Unknown [id number] 2.16.840.1.033797.3.579. 2.462 Unknown [id number] 2.16.840.1.680099.3.579. 2.462 Unknown [id number] 2.16.840.1.543726.3.579. 2.462 Unknown [id number] 2.16.840.1.583129.3.579. 2.462 Unknown [id number] 2.16.840.1.040555.3.579. 2.462 Unknown [id number] 2.16840.1.312979.3.579. 2.462 Social History Date Type Detail Facility Start: 09-08-2020 End: 11-22-2022 Tobacco smoking status NHIS Unknown if ever smoked [facility] Start: 06-06-2020 None [facility] Start: 06-06-2020 Spouse/ Signif icant Other [facility] Start: 1945 Sex Assigned At Female W [facility] Start: 01-24-2024 End: 05-19-2024 Tobacco smoking status NHIS Never smoked tobacco [facility] Start: 11-23-2021 Alcoholic beverage intake Current drinker of alcohol (finding) [facility] Start: 1945 Sex assigned at Not on file [facility] Start: 01-31-2024 End: 03-26-2024 Gender identity Not on file [facility] Start: 01-24-2024 Tobacco use and exposure Smokeless tobacco non-user [facility] Start: 01-31-2024 End: 03-24-2024 Alcoholic beverage intake Ex-drinker (finding) [facility] Start: 01-31-2024 End: 03-26-2024 History of Social function [facility] National Score (1-10 0), lower number is lower risk 66 [facility] Has the electric, [employer], oil, or water company threatened to shut off services in your home in past 12Mo No [facility] (I/We) worried chino stern (my/our) food would run out before (I/we) got money to buy more. Never true [facility] Start: 06-20-2024 End: 07-10-2024 Sex Female (finding) [facility] Medical Equipment Procedure Code Equipment Code Equipment Original Text Equipment Identifier Dates PATCH,AMNION 2X3CM FDA Start: 06-17-2020 PATCH,AMNION 2X3CM FDA Start: 06-17-2020 PATCH,AMNION 2X3CM FDA Start: 06-17-2020 PATCH,AMNION 2X3CM FDA Start: 06-17-2020 PATCH,AMNION 2X3CM FDA Start: 06-17-2020 PATCH,AMNION 2X3CM FDA Start: 06-17-2020 PATCH,AMNION 2X3CM FDA Start: 06-17-2020 PATCH,AMNION 2X3CM FDA Start: 06-17-2020 [place] Thk1.65mm P tfe 4x.5in Cardiovascular Sterile - [id number] Start: 03-24-2024 Band Mitchell Ancor e 31mm 77mm Annuloplasty Chordal Guide - [id number] Start: 03-24-2024 PATCH,AMNION 2X3CM FDA Start: 06-17-2020 CLIP,HEMOLOCK MED WECK FDA St art: 01-28-2024 Extra-gynaecolog ical surgical mesh, composite-polymer [id number] FDA Start: 01-28-2024 PATCH,AMNION 2X3CM FDA Start: 06-17-2020 CLIP,HEMOLOCK MED WECK FDA St art: 01-28-2024 PATCH,AMNION 2X3CM FDA Start: 06-17-2020 CLIP,HEMOLOCK MED WECK FDA St art: 01-28-2024 PATCH,AMNION 2X3CM FDA Start: 06-17-2020 CLIP,HEMOLOCK MED WECK FDA St art: 01-28-2024 PATCH,AMNION 2X3CM FDA Start: 06-17-2020 CLIP,HEMOLOCK MED WECK FDA St art: 01-28-2024 PATCH,AMNION 2X3CM FDA Start: 06-17-2020 CLIP,HEMOLOCK MED WECK FDA St art: 01-28-2024 Goals Date Patient Goal Desired Activity /State Personal health goal Functional Status Date Assessment Result Facility 03-31-2024 Are you deaf, or do you have serious difficulty hearing No 03/31/2024 3:48 PM Tisha Cat RN No [facility] 03-31-2024 Are you blind, or do you have serious difficulty seeing, even when wearing glasses No 03/31/2024 3:48 PM Tisha Cat RN No [facility] 03-31-2024 Do you have serious difficulty walking or climbing stairs No 03/31/2024 3:48 PM Tisha Cat RN No [facility] 03-31-2024 Do you have difficul ty dressing or bathing No 03/31/2024 3:48 PM Tisha Cat RN No [facility] 03-31-2024 Because of a physica l, mental, or emotional condition, do you have difficulty doing errands alone such as visiting a physician's office or shopping No 03/31/2024 3:48 PM Tisha Cat RN No [facility] Mental Status Date Assessment Result Facility 03-31-2024 Because of a physica l, mental, or emotional condition, do you have serious difficulty concentrating, remembering, or making decisions No 03/31/2024 3:48 PM Tisha Cat RN No [facility] Clinical Notes 01-18-2024 to 06-27-2024 Erica Min RN - 06/27/2024 12:15 PM EDT Note Date & Type Note Facility 06-27-2024 Note [facility] 06-27-2024 History of Present illness Narrative QOL Call Tracking Documentation Follow-Up Type: Phone Call Call Attempt: 1st Attempt Call Status: Patient will complete in MyChart documented in this encounter [facility] 05-14-2024 Evaluation note Diagnosis Onset Date Resolution Postoperative atrial fibrillation acute May 14 3:19pm S/P mitral valve repair acute F eb2024 3:19pm Hypertension chronic May 3:19pm [facility] Work Phone: 1(309) 244-443802-05-2025 Evaluation note* Diagnosis Onset Date Resolution Status Admit Date Postoperative atrial fibrillation acute May 14 3:19pm S/P mitral valve repair acute F 2024 3:19pm Hypertension chronic May 3:19pm Postoperative atrial fibrillation acute September 05, 2024 7 :54am S/P mitral valve repair acute M 2024 7:54am Hypertension chronic September 05 7:54am [facility] Work Phone: [phone]) [phone] NoteHNO ID: [id number] Author: ?, ?, ? Service: ? Author Type: ? Type: Progress Notes Filed: 04/30/2024 11:29 Note Text: QOL Call Tracking Documentation Follow-Up Type: Phone Call Call Attempt: 1st Attempt Call Status: [facility] History of Present illness Narrative* Rachael Mccrary - 04/30/2024 11:28 AM EST QOL Call Tracking Documentation Follow-Up Type: Phone Call Call Attempt: 1st Attempt Call Status: Patient will complete in MyChart [facility] Evaluation note* Diagnosis Onset Date Resolution Status Admit Date Postoperative atrial fibrillation acute April 10 1:41pm S/P mitral valve repair acute J anuary 2024 1:41pm Hypertension chronic April 10, 2024 1:41pm Postoperative atrial fibrillation acute May 14 3:19pm S/P mitral valve repair acute F ebruary 2024 3:19pm Hypertension chronic May 3:19pm [facility] Work Phone: 1(451) 521-748612-23-2024 [facility]12-23-2024 [facility]12-22-2024 [facility] 03[facility]30[facility] NoteHNO ID: [id number] Author: HANH AVALOS MD Service: Critical Care Author Type: Physician Type: Progress Notes Filed: 03/28/2024 11:07 Note Text: Documentation Query Please specify any diagnosis based on these indicators: [facility]ocytopeniaL[facility]12-20-2024 NoteHNO ID: [id number] Author: HANH AVALOS MD Service: Critical Care Author Type: Physician Type: Progress Notes Filed: 03/28/2024 10:22 Note Text: Documentation Query Please specify any diagnosis based on these clinical indicators: [facility]onatremiaL[facility]12-20-2024 [facility]27[facility]12-16-2024 [facility]12[facility]12-[facility] History of Present illness Narrative* Sonya High RN - 03/20/2024 10:01 AM EST QOL Call Tracking Documentation Follow-Up Type: Phone Call Call Attempt: 1st Attempt Call Status: [facility] History of Present illness Narrative* Luis Eduardo Carrasco RN - 03/04/2024 8:50 AM EST AMBULATORY PATIENT EDUCATION READINESS TO LEARN Cognitive Ability: Alert and oriented Motivation To Learn: Interested Family Support: High - Very involved in pt care Instruction Provided To: Patient & Family Patient Learns Best By: Multiple Methods Factors Affecting Learning: None Physical Limitations Affecting Learning: None LEARNING RESPONSE Diagnosis: MR/TR Education Topic: Pre-Op Open Heart Surgery Instructions Teaching Points: Logistics / Protocols /Complication Prevention Instruction/Supplemental Materials: Cardiac Surgery Information Binder Individual Instruction Patient/Family Response: Somewhat Follow up plan: Patient/Family to call [facility] with any further questions Referral (Recommendation): None Teach completed, topic: Pt instructed to stop all OTC medications effective 03/19/24. Pt instructedto check into desk J1-2 on day of surgery 03/24/24. Pt instructed to use bactroban nasal ointment only if test result is positive. Pt instructed to use CHG wash/ listerine mouthwash the night before and morning of surgery. documented [facility] History of Present illness Narrative* Alexx Trimble DO - 03/04/2024 8:40 AM EST Images from the original note were not included. Cardiothoracic Anesthesiology Preoperative Assessment Service Date: 03/03/2024 Service Time: 2:07 PM Primary Care Physician: Davey Valente DO Subjective Patient Entered Data: HPI: 78 year old male with PMH notable for: Esophageal stricture s/p EGD and dilation (15 years ago). Currently has no problems swallowing. - PAST MEDICAL HISTORY No date: Acute gastritis without mention of hemorrhage No date: Arthritis No date: Asthma No date: Chest pain, unspecified No date: Diaphragmatic hernia without mention of obstruction or gangrene No date: Diaphragmatic hernia without mention of obstruction or gangrene No date: Dyspepsia and other specified disorders of function of stomach No date: Dyspnea No date: Esophageal reflux No date: Essential hypertension, benign No date: Generalized osteoarthrosis, unspecified site No date: Hiatal hernia No date: Hypertension No date: Hypoglycemia No date: Migraine No date: Mitral valve disorders(424.0) No date: OAB (overactive bladder) No date: Other specified congenital anomaly of kidney Comment: HAD A KIDNEY REMOVED ABOUT 10 YEARS AGO 06/07/2009: PMH - PAST MEDICAL HISTORY OF Comment: Pinched nerve right hip 06/07/2009: Shingles No date: Solitary kidney, acquired No date: Stricture and stenosis of esophagus No date: Syncope and collapse No date: Vitamin D deficiency Pt presents for preoperative evaluation prior to MVr Sternotomy (2) with Esme Arango MD on 03/24/2024 . Pt is currently asymptomatic without any chest pain, shortness of breath, recent weight loss, fever, chills, nausea/vomiting, diarrhea. Patient instructed to: - Follow surgical instruction regarding anticoagulation therapy - Continue: pantoprazole - Hold: lisinopril, vitamins Pt denies any problems with prior anesthetics. We additionally discussed the anesthetic plan, what to expect, and any questions or concerns the patient may have had. Review no known heparin intolerance not taking anticoagulant/antiplatelet medication no non-cardiac IEDs present no known esophageal disorders blood transfusion consented -. A type & screen is resulted and no atypical antibodies identifed COVID-19 Immunization Status Covid-19 Vaccine ( season) Next due on 03/11/2024 01/15/2024 Imm Admin: COVID-19 original vaccine, full dose, monovalent (MODERNA) 02/15/2023 Outside Immunization: COVID-19, mRNA, LNP-S, PF, echo-sucrose, 10 mcg/0.3 mL 04/11/2022 Imm Admin: COVID-19 vaccine, age 12+ yr, bivalent ([employer]) Only the first 3 history entries have been loaded, but more history exists. 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 Other Enthesopathy of Ankle and Tarsus Sprain of Ankle, Unspecified Site Elevated Triglycerides With High Cholesterol Chest Pain, Unspecified Stricture and Stenosis of Esophagus Acute Gastritis Without Mention of Hemorrhage Diaphragmatic Hernia Without Mention of Obstruction Or Gangrene Preoperative Clearance PAST MEDICAL HISTORY Diagnosis Date Acute gastritis without mention of hemorrhage Arthritis Asthma Chest pain, unspecified Diaphragmatic hernia without mention of obstruction or gangrene Diaphragmatic hernia without mention of obstruction or gangrene Dyspepsia and other specified disorders of function of stomach Dyspnea Esophageal reflux Essential hypertension, benign Generalized osteoarthrosis, unspecified site Hiatal hernia Hypertension Hypoglycemia Migraine Mitral valve disorders(424.0) OAB (overactive bladder) Other specified congenital anomaly of kidney HAD A KIDNEY REMOVED ABOUT 10 YEARS AGO PMH - PAST MEDICAL HISTORY OF 06/07/2009 Pinched nerve right hip Shingles 06/07/2009 Solitary kidney, acquired Stricture and stenosis of esophagus Syncope and collapse Vitamin D deficiency PAST SURGICAL HISTORY Procedure Laterality Date ARTHROSCOPY KNEE DIAGNOSTIC W/WO SYNOVIAL BX SPX Arthroscopy, knee left , numerous surgeries CARDIAC CATH 01/17/2024 [facility] COLONOSCOPY FLX DX W/COLLJ SPEC WHEN PFRMD 06/26/2005 Colonoscopy ESOPHAGOGASTRODUODENOSCOPY TRANSORAL DIAGNOSTIC 11/21/2006 EGD ESOPHAGOSCOPY FLEX BALLOON DILAT <30 MM DIAM 07/13/2009 LAPAROSCOPY SURG CHOLECYSTECTOMY Cholecystectomy, lap PAST SURGICAL HISTORY OF 04/09/1995 right kidney removed - nonfunctioning TOTAL ABDOMINAL HYSTERECT W/WO RMVL TUBE OVARY Hysterectomy, LEANNE FAMILY HISTORY Problem Relation Age of Onset Cancer Mother pancreatic Cancer Brother pancreatic Stroke Father multiple, arrythmia Breast Cancer Maternal Aunt Breast Cancer Paternal Aunt Cancer Brother leukemia, bone Prostate Cancer Brother Headache Sister migraine Heart Sister Stroke Sister Heart Father Prostate Cancer Father Diabetes Brother Lipids Brother Social History Tobacco Use Smoking status: Never Smokeless tobacco: Never Vaping Use Vaping status: Never Used Substance Use Topics Alcohol use: Not Currently Comment: rarely Drug use: Never Prior to Admission medications as of 03/03/24 1315 Medication Sig Last Dose Taking pantoprazole DR (PROTONIX) 20 mg tablet Take 1 tablet by mouth every afternoon. predniSONE (DELTASONE) 10 mg tablet Take 10 mg by mouth as needed (arthritis). lisinopril (ZESTRIL) 20 mg tablet Take 20 mg by mouth once daily. Patient states she takes: Lisinopril 20mg tablet by mouth once daily in the morning with breakfast. COMPOUNDED PRESCRIPTION takes otc vit d COMPOUNDED PRESCRIPTION takes otc move free as directed No medication comments found. ALLERGIES Allergen Reactions Codeine GI Upset Medrol Dose Pack [M* Itching upper arms and chest redness and itching, and chest heaviness Oxycodone Other: See Comments Patient states that she vomited; she had back surgery [facility] Steroids [Betametha* Itching Sulfa (Sulfonamide * Hives Patient states she began to get allergic to it in the last two years. Objective Pain Assessment: Vitals: There were no vitals taken for this visit. Diagnostic tests reviewed for today's visit: Lab Value Units Date High Low HB 13.5 g/dL 03/03/2024 15.5 11.5 HCT 42.0 % 03/03/2024 46.0 36.0 WBC 9.46 k/uL 03/03/2024 11.00 3.70 PLT 230 k/uL 03/03/2024 400 150 NA 142 mmol/L 03/03/2024 144 136 K 4.8 mmol/L 03/03/2024 5.1 3.7 GLUC 91 mg/dL 03/03/2024 99 74 BUN 20 mg/dL 03/03/2024 21 7 CREAT 0.96 mg/dL 03/03/2024 0.96 0.58 PTSEC 10.5 sec 03/03/2024 13.0 9.7 INR 1.0 no uni* 03/03/2024 1.3 0.9 APTT 26.5 sec 03/03/2024 32.4 23.0 ALT 10 U/L 03/03/2024 38 7 AST 15 U/L 03/03/2024 35 13 TBILI 0.5 mg/dL 03/03/2024 1.3 0.2 TSH No results within date range. Lab Value Units Date High Low HCGQT No results within date range. UHCG No results within date range. HCG, BODY* No results within date range. Lab Value Units Date High Low ABORHD No results within date range. ABSCREEN No results within date range. No results found for: HBA1C Recent Results (from the past 8760 hour(s)) XR CHEST 2V FRONTAL/LAT Collection Time: 03/03/24 9:45 AM Impression IMPRESSION: No acute radiographic abnormality. Botany Technician: ALEX Transcribe Date/Time: Mar 03 2024 10:46A Dictated by : GAUDENCIO DELGADO, DO This examination was interpreted and the report reviewed and electronically signed by: MELIDA MASTERS MD on Mar 03 2024 10:50AM EST ECG COMPLETE Collection Time: 03/03/24 9:37 AM Impression NORMAL SINUS RHYTHM NORMAL ECG ECHO Collection Time: 03/03/24 8:28 AM Impression CONCLUSIONS: - Exam indication: Pre-op MVr - The left ventricle is normal in size. Left ventricular systolic function is normal. EF = 69 5% (2D biplane) - The right ventricle is normal in size. Right ventricular systolic function is normal. - The left atrial cavity is mildly dilated. - There is severe (3+ - 4+) holosystolic mitral valve regurgitation due to prolapse. Posterior leaflet prolapse, with eccentric anteriorly directed MR. - Exam was compared with the prior echocardiographic exam performed on 12/19/2006. MR has progressed. * * * Final * * * Assessment No problem-specific Assessment & Plan notes found for this encounter. ANESTHESIA FINDINGS: Intubation History: No history of difficult intubation. No abnormal airway history Significant Anesthesia Considerations: none Airway History: No history of difficult airway No abnormal airway history Prepared for Surgery: optimally prepared for surgery, pending day of surgery. The Following Tests/Procedures Have Been Initiated: Orders Placed This Encounter mupirocin (BACTROBAN) 2 % ointment Sig: Apply a small amount in each nostril using a cotton swab twice the day before surgery and oncethe morning of surgery. Dispense: 22 g Refill: 0 Order Comments: Supply patient with Q-tips and instruction sheet ASA Class: 4 Planned Anesthetic: general I - PHYSICAL EVALUATION AIRWAY Patient intubated: No. Tracheostomy tube not present Mallampati: I. TM distance: >3 FB. Neck ROM: full ROM without neurological symptoms. Mouth opening: adequate. Short neck: no. Thick neck: no DENTAL Normal dental observations. II - ANESTHESIA PLAN ASA Score: 4 Anesthetic Plan: general Airway type: ETT Beta Jw Monitoring Plan Post Procedure Analgesic Plan Informed Consent Anesthetic risks, benefits, alternatives, personnel and consent discussed: yes. Patient / Responsible Libertarian agrees to proceed: yes Patient / Surrogate agrees to blood products: Yes Instructions Given to Patient: Instructions located in the after visit summary. Patient given verbal and written preop instructions and voices comprehension and compliance. Signature: Alexx Trimble DO Patient Name: Hilda Mullins Date: March 03, 2024 Time: 2:07 PM Pager/Contact #: documented [facility]26[facility] History of Present illness Narrative* Luis Eduardo Carrasco RN - 03/04/2024 8:05 AM EST CHART COPY-DO NOT DISCARD CARDIOVASCULAR SURGERY PRE-OPERATIVE ASSESSMENT NAME: Hilda Mullins Alert Notes: N/A DATE: 03/04/2024 SEX: female : 1945 AGE: [age] year old Estimated body mass index is 28.35 kg/m as calculated from the following: Height as of 03/03/24: 157.5 cm (5' 2). Weight as of 03/03/24: 70.3 kg (155 lb). STS Score N/A Patient scheduled for surgery on: No data recorded 03/24/24 [facility] MD: Scar Estrada CHIEF COMPLAINT: Pre-Op Open Heart Surgery MEDICATIONS: Current Outpatient Medications Medication Sig pantoprazole DR (PROTONIX) 20 mg tablet Take 1 tablet by mouth every afternoon. predniSONE (DELTASONE) 10 mg tablet Take 10 mg by mouth as needed (arthritis). lisinopril (ZESTRIL) 20 mg tablet Take 20 mg by mouth once daily. Patient states she takes: Lisinopril 20mg tablet by mouth once daily in the morning with breakfast. COMPOUNDED PRESCRIPTION takes otc vit d COMPOUNDED PRESCRIPTION takes otc move free as directed No current facility-administered medications for this visit. ALLERGIES: ALLERGIES Allergen Reactions Codeine GI Upset Medrol Dose Pack [M* Itching upper arms and chest redness and itching, and chest heaviness Oxycodone Other: See Comments Patient states that she vomited; she had back surgery [facility] Steroids [Betametha* Itching Sulfa (Sulfonamide * Hives Patient states she began to get allergic to it in the last two years. LATEX ALLERGY: No FOOD SENSITIVITIES: No ANTICOAGULANTS: None STEROIDS: No HISTORIES: FAMILY HISTORY Problem Relation Age of Onset Cancer Mother pancreatic Cancer Brother pancreatic Stroke Father multiple, arrythmia Breast Cancer Maternal Aunt Breast Cancer Paternal Aunt Cancer Brother leukemia, bone Prostate Cancer Brother Headache Sister migraine Heart Sister Stroke Sister Heart Father Prostate Cancer Father Diabetes Brother Lipids Brother PAST MEDICAL HISTORY Diagnosis Date Acute gastritis without mention of hemorrhage Arthritis Asthma Chest pain, unspecified Diaphragmatic hernia without mention of obstruction or gangrene Diaphragmatic hernia without mention of obstruction or gangrene Dyspepsia and other specified disorders of function of stomach Dyspnea Esophageal reflux Essential hypertension, benign Generalized osteoarthrosis, unspecified site Hiatal hernia Hypertension Hypoglycemia Migraine Mitral valve disorders(424.0) OAB (overactive bladder) Other specified congenital anomaly of kidney HAD A KIDNEY REMOVED ABOUT 10 YEARS AGO [facility] - PAST MEDICAL HISTORY OF 06/07/2009 Pinched nerve right hip Shingles 06/07/2009 Solitary kidney, acquired Stricture and stenosis of esophagus Syncope and collapse Vitamin D deficiency PAST SURGICAL HISTORY Procedure Laterality Date ARTHROSCOPY KNEE DIAGNOSTIC W/WO SYNOVIAL BX SPX Arthroscopy, knee left , numerous surgeries CARDIAC CATH 01/17/2024 [facility] COLONOSCOPY FLX DX W/COLLJ SPEC WHEN PFRMD 06/26/2005 Colonoscopy ESOPHAGOGASTRODUODENOSCOPY TRANSORAL DIAGNOSTIC 11/21/2006 EGD ESOPHAGOSCOPY FLEX BALLOON DILAT <30 MM DIAM 07/13/2009 LAPAROSCOPY SURG CHOLECYSTECTOMY Cholecystectomy, lap PAST SURGICAL HISTORY OF 04/09/1995 right kidney removed - nonfunctioning TOTAL ABDOMINAL HYSTERECT W/WO RMVL TUBE OVARY Hysterectomy, LEANNE Social History Tobacco Use Smoking status: Never Smokeless tobacco: Never Vaping Use Vaping status: Never Used Substance Use Topics Alcohol use: Not Currently Comment: rarely Drug use: Never REVIEW OF SYSTEMS: GEN: Fatigue HEENT: Cataract Surgery w/ lens implants bilaterally; bilateral hearing aides DERM: Denies Dermatological Complaints METEOROLOGICAL ENGINEER: Denies Neurological Complaints RESP: virus ~2wks ago CARD: MR/MVP; Mild TR; CAD; HTN GI: , GERD; stomach ulcer, Esophageal Disease strictures ~several years ago; hiatal hernia : R-kidney removal congenital anomaly ENDO: Denies Endocrine Complaints HEME: Denies Hematological complaints MUSC/SKEL: OA; L-TKR PVD: Denies PVD Varicose Veins: spider veins developing BRUITS (Carotid): see cardiology note PULSES: L/R CHIO 2+ NYHA CLASSIFICATION: unknown FAMILY HISTORY OF CAD: Yes ? PERFUSION INDEX: N/A Implants: L-TKR Pacer Check: NA CARDIAC EVALUATION: Cardiac Cath: Date - 01/17/24 - OSH Ultrasound: Date - N/A PFT: Date - N/A ECHO: Last ECHO Result Conclusion ECHO Collected: 03/03/2024 8:28 AM (Final result) Impression: CONCLUSIONS: - Exam indication: Pre-op MVr - The left ventricle is normal in size. Left ventricular systolic function is normal. EF = 69 5% (2D biplane) - The right ventricle is normal in size. Right ventricular systolic function is normal. - The left atrial cavity is mildly dilated. - There is severe (3+ - 4+) holosystolic mitral valve regurgitation due to prolapse. Posterior leaflet prolapse, with eccentric anteriorly directed MR. - Exam was compared with the prior echocardiographic exam performed on 12/19/2006. MR has progressed. * * * Final * * * CT Scan: N/A MRI: N/A CXR: XR CHEST 2V FRONTAL/LAT Result Date: 03/03/2024 IMPRESSION: No acute radiographic abnormality. Botany Technician: ALEX Transcribe Date/Time: Mar 03 2024 10:46A Dictated by : GAUDENCIO DELGADO, DO This examination was interpreted and the report reviewedand electronically signed by: MELIDA MASTERS MD on Mar 03 2024 10:50AM EST EK03/03/24 Dental: Cleared by [facility] dental ? Recent Labs 03/03/24 1005 WBC 9.46 HB 13.5 HCT 42.0 PLT 230 INR 1.0 APTT 26.5 PTSEC 10.5 NA 142 K 4.8 BUN 20 CREAT 0.96 Pre Op Instructions per protocol reviewed and handout given to patient . Patient Education completed and documented. Instructed to start Bactroban per protocol. Emotional support provided to patient and family. All questions and concerns adressed. Signature: Luis Eduardo Carrasco RN See Cardiology History and Physical dated 03/03/24 documented in this encounterMem[facility]24 Note[facility]11-[facility]24 History of Present illness Narrative* Esme Arango MD - 03/04/2024 7:11 AM EST Images from the original note were not included. Heart, Vascular [facility] Thor[facility] DEPARTMENT OF CARDIAC SURGERY OUTPATIENT VISIT DATE March 04, 2024 OUTPATIENT VISIT SERVICE DATE: 03/04/2024 SERVICE TIME: 7:14 AM PCP: Davey Valente [address] [place] [address] Referring Physician: Kenny Alejandro ([facility]) [address] [facility] [address] Patient Type: New Visit to Determine Surgery: Yes HPI: Ms. Hilda Mullins is a 78 year old female seen regarding candidacy for cardiac surgery. She iscurrently symptomatic and complains of shortness of breath and dyspnea on exertion Comorbidities include stenosis of a ramus and some TR. Last ECHO Result Conclusion ECHO Collected: 03/03/2024 8:28 AM (Final result) Impression: CONCLUSIONS: - Exam indication: Pre-op MVr - The left ventricle is normal in size. Left ventricular systolic function is normal. EF = 69 5% (2D biplane) - The right ventricle is normal in size. Right ventricular systolic function is normal. - The left atrial cavity is mildly dilated. - There is severe (3+ - 4+) holosystolic mitral valve regurgitation due to prolapse. Posterior leaflet prolapse, with eccentric anteriorly directed MR. - Exam was compared with the prior echocardiographic exam performed on 12/19/2006. MR has progressed. * * * Final * * * Impression: Coronary Artery Disease, Mitral Insufficiency, and Tricuspid Insufficiency Plan: Operative: Full Sternotomy with limited skin. MV repair or SJ EPIC. Possible TV repair-Check echo. Possible CABG--but unilikely. Bicaval cannulation. Buckberg antegrade and retrograde (Pettersson retrograde). Iced slush. FREDERIC. Amicar Based on my evaluation she is a high risk for cardiac surgery. The risks, benefits and anticipated outcomes of the procedure, the risks and benefits of the alternatives to the procedure, and the roles and tasks of the personnel to be involved, were discussed with the patient, and the patient consents to the procedure and agrees to proceed. We discussed the possibility that there could be two patients undergoing surgery in two separate rooms (concurrent surgery) and that I would be present for the critical components of all operations. We also discussed that in an emergency situation, a qualified backup surgeon is available and in the rare event of such aserious situation, that colleague might take over the operation. These findings will be communicated back to the requesting physician via electronic medical record Esme Arango MD documented in this encounterMemorial [facility]11-25-2024 NoteL[facility]11-25-2024 History of Present illness Narrative* Rain Marrufo, DDS - 03/03/2024 2:12 PM EST Images from the original note were not included. Head and Neck [facility] Dentistry, Oral Surgery, & Maxillofacial Prosthetics CHIEF COMPLAINT: Dental Clearance HISTORY OF PRESENT ILLNESS: Hilda Mullins is a 78 year old female being seen for dental consultation at the request of Dr. Esme Scott prior to open-heart surgery. The patient's last dental visit was one year ago with routine care every year. ago. Pain:She denies odontalgia today. 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 predniSONE (DELTASONE) 10 mg tablet Take 10 mg by mouth as needed (arthritis). lisinopril (ZESTRIL) 20 mg tablet Take 20 mg by mouth once daily. Patient states she takes: Lisinopril 20mg tablet by mouth once daily in the morning with breakfast. COMPOUNDED PRESCRIPTION takes otc vit d COMPOUNDED PRESCRIPTION takes otc move free as directed No current facility-administered medications on file prior to visit. ALLERGIES: ALLERGIES Allergen Reactions Codeine GI Upset Medrol Dose Pack [M* Itching upper arms and chest redness and itching, and chest heaviness Oxycodone Other: See Comments Patient states that she vomited; she had back surgery [facility] Steroids [Betametha* Itching Sulfa (Sulfonamide * Hives Patient states she began to get allergic to it in the last two years. CLINICAL EXAMINATION: General appearance: healthy, alert, well hydrated, pleasant, no distress. Extraoral, Head and Neck exam: No extraoral swelling or erythema Parotid and submandibular glands soft, nonpainful to palpation bilaterally No lymphadenopathy V1, V2, V3, CN VII intact bilaterally Intraoral Soft Tissues: Clear saliva extruded from bilateral Woodford's and Marlon's ducts. Tongue soft and non-tender with no apparent lesions. Buccal mucosa without lesions bilaterally. Hard palate is WNL. Soft palate is WNL. Pharynx is WNL. Floor of mouth is WNL. Gingival tissues are pink, firm and stippled. Dentition: Caries:None Retained root tips: None Pain to percussion: None Mobility: None Oral hygiene: excellent. Radiographic examination: Panorex No apical radiolucencies noted. Caries: None. Incidental radiographic finding: Large radiopaque round lesion noted in right ascending ramus. No palpable lesion in right parotid gland, no palpable intraoral lesion. Further imaging will be necessary to diagnosis. Patient denies facial tingling, numbness, dysphagia or other worrisome symptoms. She denies any previous panorex imaging by her general dentist for comparison. ASSESSMENT: The oral cavity and dentition were examined and found to be without signs of acute odontogenic infection. There is low risk of perioperative dental complication with this patient. Large radiopaque lesion in right ascending ramus noted on panorex. Will forward imaging to Dr. Arango and plan to discuss next week with oral surgeon regarding CT Facial bone. RECOMMENDATIONS: The patient is at low risk of perioperative complication from an oral health standpoint. Clinical exam and radiographic interpretation confirm low dental risk for OHS. Plan: I will contact Dr. Arango regarding his opinion regarding further imaging to rule out vascular lesion (doubtful) and Dr. Izquierdo, oral surgeon, for his opinion regarding CT imaging of the facial bones. Patient was made aware of lesion and I will contact her following consult with oral surgeon. The procedure including risks, benefits, options and personnel performing the procedure was discussed with the patient. Hilda Mullins expressed understanding and agreed to proceed. The opinions rendered will be communicated back to the referring provider via shared electronic medical record. Rain Marrufo DDS documented in this encounterMemorial [facility]11-25-2024 History of Present illness Narrative* Herlinda Nesbitt MD - 03/03/2024 9:45 AM EST Images from the original note were not included. Heart [facility] V[facility] Department of Cardiovascular Medicine SECTION OF CLINICAL CARDIOLOGY OUTPATIENT VISIT DATE March 03, 2024 OUTPATIENT VISIT TYPE NEW PRIMARY CARE PHYSICIAN: Davey Valente [address] [place] [address] REFERRING PHYSICIAN: Esme Arango [address] [place] [address] CHIEF COMPLAINT: Preoperative cardiac evaluation. HISTORY OF PRESENT ILLNESS: NURSING INTAKE: Ms. Mullins is a 78 year old female from [place], [place] here today for cardiovascular evaluation. She has a planned MVr scheduled for 03/24/[address] Arango. Hilda has a significant medical history of mitral regurgitation/mitral prolapse, CAD. She reports the following symptoms: -SOB on exertion -syncopal episode (last was Labor day weekend) -orthopnea - fatigued Occupation: none Diet: regular Exercise: none, just house work Diagnosed with mitral valve prolapse around 34 years ago - thought to be mild - no follow up since then. Until syncopal episode ( with pre dizziness) on labour day . Diagnosed with severe MR with severe bileaflet prolapse. Takes 1/2 tab of lisinopril instead of full tablet Had successful right inguinal hernia (robotic) last month with no complications PAST MEDICAL HISTORY Diagnosis Date Acute gastritis without mention of hemorrhage Arthritis Asthma Chest pain, unspecified Diaphragmatic hernia without mention of obstruction or gangrene Diaphragmatic hernia without mention of obstruction or gangrene Dyspepsia and other specified disorders of function of stomach Dyspnea Esophageal reflux Essential hypertension, benign Generalized osteoarthrosis, unspecified site Hiatal hernia Hypertension Hypoglycemia Migraine Mitral valve disorders(424.0) OAB (overactive bladder) Other specified congenital anomaly of kidney HAD A KIDNEY REMOVED ABOUT 10 YEARS AGO [facility] - PAST MEDICAL HISTORY OF 06/07/2009 Pinched nerve right hip Shingles 06/07/2009 Solitary kidney, acquired Stricture and stenosis of esophagus Syncope and collapse Vitamin D deficiency PAST SURGICAL HISTORY Procedure Laterality Date ARTHROSCOPY KNEE DIAGNOSTIC W/WO SYNOVIAL BX SPX Arthroscopy, knee left , numerous surgeries CARDIAC CATH 01/17/2024 [facility] COLONOSCOPY FLX DX W/COLLJ SPEC WHEN PFRMD 06/26/2005 Colonoscopy ESOPHAGOGASTRODUODENOSCOPY TRANSORAL DIAGNOSTIC 11/21/2006 EGD ESOPHAGOSCOPY FLEX BALLOON DILAT <30 MM DIAM 07/13/2009 LAPAROSCOPY SURG CHOLECYSTECTOMY Cholecystectomy, lap PAST SURGICAL HISTORY OF 04/09/1995 right kidney removed - nonfunctioning TOTAL ABDOMINAL HYSTERECT W/WO RMVL TUBE OVARY Hysterectomy, LEANNE SOCIAL HISTORY Social History Tobacco Use Smoking status: Never Smokeless tobacco: Never Vaping Use Vaping status: Never Used Substance Use Topics Alcohol use: Not Currently Comment: rarely Drug use: Never FAMILY HISTORY Problem Relation Age of Onset Cancer Mother pancreatic Cancer Brother pancreatic Stroke Father multiple, arrythmia Breast Cancer Maternal Aunt Breast Cancer Paternal Aunt Cancer Brother leukemia, bone Prostate Cancer Brother Headache Sister migraine Heart Sister Stroke Sister Heart Father Prostate Cancer Father Diabetes Brother Lipids Brother ALLERGIES: ALLERGIES Allergen Reactions Codeine GI Upset Medrol Dose Pack [M* Itching upper arms and chest redness and itching, and chest heaviness Oxycodone Other: See Comments Patient states that she vomited; she had back surgery [facility] Steroids [Betametha* Itching Sulfa (Sulfonamide * Hives Patient states she began to get allergic to it in the last two years. MEDICATIONS: pantoprazole DR (PROTONIX) 20 mg tablet Take 1 tablet by mouth every afternoon. predniSONE (DELTASONE) 10 mg tablet Take 10 mg by mouth as needed (arthritis). lisinopril (ZESTRIL) 20 mg tablet Take 20 mg by mouth once daily. Patient states she takes: Lisinopril 20mg tablet by mouth once daily in the morning with breakfast. COMPOUNDED PRESCRIPTION takes otc vit d COMPOUNDED PRESCRIPTION takes otc move free as directed REVIEW OF SYSTEMS: GENERAL: Negative for: Weight loss or gain, Fever or Chills, Weakness and Sleep difficulties. HEENT: Negative for: Headache, Impaired Vision, Glasses, Hearing Impairment, Ringing in Ears, Nosebleeds, Poor dental care, Bleeding Gums, Dentures NECK: Negative for: Swelling, Pain, Stiffness RESPIRATORY: Negative for: Cough, Blood in Sputum, Shortness of breath, Wheezing, Apnea GASTROINTESTINAL: Negative for: Trouble swallowing, Heartburn, Change in bowel habits, Blood in stool, Dark black stools MUSCULOSKELETAL: Negative for: Muscle or joint pain, Stiffness , Joint swelling NEUROLOGIC/PSYCHIATRIC: Negative for: Weakness, Paralysis, Numbness, Tingling, Tremor, Nervousness,Depressed mood, Memory loss SKIN: Negative for: Rashes, Itching HEMATOLOGICAL/LYMPHATIC: Negative for: Easy bruising , Easy bleeding ENDOCRINE: Negative for: Heat or cold intolerance, Excessive sweating, Frequent urination, Frequentthirst PHYSICAL EXAMINATION: BP 159/70 (BP Site: Right Arm) Pulse 75 Resp 16 Ht 157.5 cm (5' 2) Wt 70.3 kg (155 lb) SpO2 97% BMI 28.35 kg/m General: Well appearing, in no acute distress. Skin: No clubbing, no cyanosis. Eyes: Extra ocular movements intact Oropharynx: Teeth in good repair. Neck: No jugular venous distention, no carotid bruits, carotids have a normal upstroke, no palpablethyromegaly. Lungs: Clear to auscultation bilaterally, no wheezing or rhonchi. Heart: Regular rhythm, PMI not displaced, S1, S2 normal, no S3, no S4, no heaves, no rub and harsh systolic murmur a apex Abdomen: Soft, nontender, bowel sounds normal, no palpable organomegaly, no bruits. Extremities: No peripheral edema . Grade 2/4 distal pulses bilaterally. Neuro: Oriented to person, place and time, alert, cooperative, gait coordinated. CARDIOVASCULAR MEDICINE TESTING: Electrocardiogram: Last ECHO Result Conclusion ECHO Collected: 03/03/2024 8:28 AM (Final result) Impression: CONCLUSIONS: - Exam indication: Pre-op MVr - The left ventricle is normal in size. Left ventricular systolic function is normal. EF = 69 5% (2D biplane) - The right ventricle is normal in size. Right ventricular systolic function is normal. - The left atrial cavity is mildly dilated. - There is severe (3+ - 4+) holosystolic mitral valve regurgitation due to prolapse. Posterior leaflet prolapse, with eccentric anteriorly directed MR. - Exam was compared with the prior echocardiographic exam performed on 12/19/2006. MR has progressed. * * * Final * * * OSH CARD CATH 01/17/24 OSH ECHO 12/26/23 IMPRESSION/RECOMMENDATIONS Ms. Mullins is a 78 year old female from [place], [place] here today for cardiovascular evaluation. She has a planned MVr scheduled for 03/24/[address] Arango. Symptomatic severe MR with MV prolapse . Mild CAD. She will benefit from surgical intervention as planned. Suboptimal BP control - increase lisinopril from 10mg to 20mg daily. : I personally interviewed, confirmed and edited the above information as obtained by others. CONTACT INFORMATION: Herlinda Nesbitt M.D, MPH, [facility] Department of Cardiovascular Medicine [facility] Desk [place] [address] Office Office Appointments: [phone] documented in this encounterMemorial Health [facility]11-25-2024 NoteLicking [facility]11-25-2024 History of Present illness Narrative* Sonya Apodaca, RT(R) - 03/03/2024 9:30 AM EST Radiology Service Progress Note PATIENT NAME: Hilda Mullins DATE OF SERVICE: March 03, 2024 TIME: 9:43 AM PATIENT IDENTITY VERIFICATION COMPLETED USING TWO (2) IDENTIFIERS: Name and Date of confirmedby patient verbally. FALL SCREENING: Has the patient had 2 falls in the last year or 1 fall with injury or currently using an Ambulatory Assistive Device (Walker, Cane, Wheelchair, Crutches, etc.)? No PATIENT GENDER DATA: Female. status: : No status: NO. PATIENT RELEVANT IMPLANT DATA REVIEWED: Not Applicable PATIENT PRESENTS WITH AN IMPLANTABLE OR ATTACHED PENCILS WASHER: No RADIOLOGY DEPARTMENT: General X-ray: Exam(s) Completed: Chest X-Ray PERIPHERAL IV DATA: Not applicable SIGNED BY: RT Nixon(R) March 03, 2024 9:43 AM documented in this encounterMemorial Health [facility]11-25-2024 NoteL[facility]11-20-2024 Telephone encounter Note* Telephone Encounter - Haven Gastelum - 02/27/2024 8:44 AM EST Spoke with patient and she does not have dental insurance [facility]11-20-2024 Miscellaneous Notes* Telephone Encounter - Haven Gastelmu - 02/27/2024 8:44 AM EST Spoke with patient and she does not have dental insurance documented in this encounterMemorial Health [facility]11-19-2024 Telephone encounter Note * Telephone Encounter - Sonya Bryan RN - 02/26/2024 2:36 PM EST OPReina 03.03, Conchita [id number] @ [facility], [facility] 03.24. Please FedEx the Schedule as patient does not have MyChart capabilities. MVr Sternotomy (2) Discussed with Hilda the details regarding surgery scheduled with Dr. Arango on 03.24. She will see [facility]. Provided instructions for the last dose date of any anti-coagulants, vitamins, supplements, minerals, herbal products, NSAID's should be .. Sonya Bryan RN February 26, 2024 2:40 PM Cardiac Surgery PreOp Checklist Patient Name: Hilda Mullins OR Surgery Date: 03.24.24 [facility] Appt. Date: 03.04.24 Primary Care Provider: Davey Valente DO Definition Comments Diabetes/Insulin Pump A1-c and Endo consult (need for pump pt) n/a Hypothyroid/thyroid nodules TSH/US of thyroid if new nodule n/a Stroke (CVA) Neurology consult n/a Dysphagia, stricture w/no recent dilation, Harmon's Esophagus GI consult n/a Von Willebrand/thrombocytopenia/ Blood... Hematology consult n/a Abnormal labs from outside Place any necessary consults n/a Cardiac Cath Correct birthday/include all images/moving if outside cath not ordered- outside 10.10 Redo OHS/Robotic surgery/radiation to chest CT or CTA/if outside CT will need in-house CXR, CardiacMRI n/a Mechanical valve Admit for Heparin/Lovenox bridge n/a Female <50 y/o HCG n/a Heparin allergy hx of HIT Vascular Medicine consult n/a Nickel/Metal allergy Dermatology consult n/a Breast implants/Robotic candidates Plastic Surgery consult n/a Urinary strictures Urology consult/Urology consult to OR n/a All stimulators/spinal stimulator Type of stimulator n/a PPM/AICD Device check n/a Valve/TAVR/TEVAR/Myectomy/ascending aorta Dental clearance/Dental Consult at [facility] ordered CABG surgery with previous CABG/varicose vein/vein stripping Leg vein mapping n/a LMT disease > 30% or Carotid Bruits Carotid ultrasound n/a Descending Aneurysm/TEVAR/TAA Pre-admit/hydration/spinal drain to be placed: IR/OR/Not Needed n/a Dialysis patient IHD day prior to OHS n/a CABG with no ECHO results Discussion w/surgeon results for dental clearance: preop/postop n/a Advanced Directives Instructions given to patient n/a FMLA Forward to AA n/a Test/Consult not needed Communicate in Epic or Access n/a Record of decreased PFTs, known lung disease Any pulmonary consult n/a Pulmonary embolectomy Needs US/Duplex BLE, VQ scan RHC, possible LHC, Pulmonary and/or Vascular consult n/a Abnormal CT All>1cm if further workup/consult needed n/a [employer] Repostitory Notification of packet and general knowledge given to pt n/a [facility]11-19-2024 Miscellaneous Notes* Telephone Encounter - Sonya Bryan RN - 02/26/2024 2:36 PM EST OPD 03.03, Conchita [id number] @ 0700, [facility]HS 03.24. Please FedEx the Schedule as patient does not have MyChart capabilities. MVr Sternotomy (2) Discussed with Hilda the details regarding surgery scheduled with Dr. Arango on 03.24. She will see [facility]. Provided instructions for the last dose date of any anti-coagulants, vitamins, supplements, minerals, herbal products, NSAID's should be 12.. Sonya Bryan RN February 26, 2024 2:40 PM Cardiac Surgery PreOp Checklist Patient Name: Hilda Mullins OR Surgery Date: 03.24.24 [facility] Appt. Date: 03.04.24 Primary Care Provider: Davey Valente DO Definition Comments Diabetes/Insulin Pump A1-c and Endo consult (need for pump pt) n/a Hypothyroid/thyroid nodules TSH/US of thyroid if new nodule n/a Stroke (CVA) Neurology consult n/a Dysphagia, stricture w/no recent dilation, Harmon's Esophagus GI consult n/a Von Willebrand/thrombocytopenia/ Blood... Hematology consult n/a Abnormal labs from outside Place any necessary consults n/a Cardiac Cath Correct birthday/include all images/moving if outside cath not ordered- outside 10.10 Redo OHS/Robotic surgery/radiation to chest CT or CTA/if outside CT will need in-house CXR, CardiacMRI n/a Mechanical valve Admit for Heparin/Lovenox bridge n/a Female <50 y/o HCG n/a Heparin allergy hx of HIT Vascular Medicine consult n/a Nickel/Metal allergy Dermatology consult n/a Breast implants/Robotic candidates Plastic Surgery consult n/a Urinary strictures Urology consult/Urology consult to OR n/a All stimulators/spinal stimulator Type of stimulator n/a PPM/AICD Device check n/a Valve/TAVR/TEVAR/Myectomy/ascending aorta Dental clearance/Dental Consult at [facility] ordered CABG surgery with previous CABG/varicose vein/vein stripping Leg vein mapping n/a LMT disease > 30% or Carotid Bruits Carotid ultrasound n/a Descending Aneurysm/TEVAR/TAA Pre-admit/hydration/spinal drain to be placed: IR/OR/Not Needed n/a Dialysis patient IHD day prior to OHS n/a CABG with no ECHO results Discussion w/surgeon results for dental clearance: preop/postop n/a Advanced Directives Instructions given to patient n/a FMLA Forward to AA n/a Test/Consult not needed Communicate in Epic or Access n/a Record of decreased PFTs, known lung disease Any pulmonary consult n/a Pulmonary embolectomy Needs US/Duplex BLE, VQ scan RHC, possible LHC, Pulmonary and/or Vascular consult n/a Abnormal CT All>1cm if further workup/consult needed n/a [employer] Notification of packet and general knowledge given to pt n/a * Telephone Encounter - Sonya Bryan RN - 02/25/2024 10:09 AM EST Surgeon Review Complete. NPM to contact regarding PRIMARY Trial. * Telephone Encounter - Sonya Bryan RN - 02/25/2024 7:57 AM EST To [facility] for review: moderate-severe MR/MVP- posterior, mild TR, CAD * Telephone Encounter - Yarelis Hernandez - 02/20/2024 1:59 PM EST Records are in Play[employer], images are on Syngo. To NPM * Telephone Encounter - Yarelis Hernandez - 02/20/2024 1:39 PM EST Patient was referred to Dr. Arango by Dr. Alejandro for MVR. I have left a VM for the josefina to inform her of the referral and review process. [facility] Telephone encounter Note * Telephone Encounter - Sonya Bryan RN - 02/25/2024 10:09 AM EST Surgeon Review Complete. NPM to contact regarding PRIMARY Trial. [facility]11-18-2024 Telephone encounter Note* Telephone Encounter - Juliet Carrera - 02/25/2024 9:18 AM EST PRIMARY Percutaneous or Surgical Repair In Mitral Prolapse And Regurgitation for 60 and > Year-olds IRB: [id number] PI: Mickey Arango MD Talked to patient in regards to above study. I EMAILED patient the consent for review. We will meetin person to discuss, when she comes for her appointment with Dr. Arango. Patient has my contact information. Juliet Rahman [facility] [id number] [facility]11-18-2024 Miscellaneous Notes* Telephone Encounter - Juliet Carrera - 02/25/2024 9:18 AM EST PRIMARY Percutaneous or Surgical Repair In Mitral Prolapse And Regurgitation for 60 and > Year-olds IRB: [id number] PI: Mickey Arango MD Talked to patient in regards to above study. I EMAILED patient the consent for review. We will meetin person to discuss, when she comes for her appointment with Dr. Arango. Patient has my contact information. Juliet Rahman [facility] [id number] documented in this encounterMem[facility]11-18-2024 Telephone encounter Note * Telephone Encounter - Sonya Bryan RN - 02/25/2024 7:57 AM EST To [facility] for review: moderate-severe MR/MVP- posterior, mild TR, CAD [facility]11-13-2024 Telephone encounter Note* Telephone Encounter - Daxa Birmingham - 02/20/2024 2:14 PM EST IN [facility] Work Phone: 1(798) 809-747311-13-2024 Miscellaneous Notes* Telephone Encounter - Daxa Birmingham - 02/20/2024 2:14 PM EST IN * Telephone Encounter - Yarelis Hernandez - 02/20/2024 2:02 PM EST Please register insurance. Thank you documented in [facility] encounterMem[facility]11-13-2024 Telephone encounter Note * Telephone Encounter - Yarelis Hernandez - 02/20/2024 2:02 PM EST Please register insurance. Thank you [facility] Work Phone: [phone]) 401-880911-13-2024 Telephone encounter Note* Telephone Encounter - Yarelis Hernandez - 02/20/2024 1:59 PM EST Records are in Epic, images are on streamOnceo. To NPM [facility] Work Phone: 1(582) 723-954711-13-2024 Telephone encounter Note* Telephone Encounter - Yarelis Hernandez - 02/20/2024 1:39 PM EST Patient was referred to Dr. Arango by Dr. Alejandro for MVR. I have left a VM for the paitent to inform her of the referral and review process. [facility]11-04-2024 Telephone encounter Note* Telephone Encounter - Lena Jensen APRN.CNP - 02/11/2024 11:08 AM EST Called pt to invite to open heart education class. She said she is cancelling surgery, does not want to pursue surgery, and did not really expand on why. Notified crew scheduler. Lena Jensen APRN.CNP [facility] Work Phone: [phone] Miscellaneous Notes* Telephone Encounter - Lena Jensen APRN.CNP - 02/11/2024 11:08 AM EST Called pt to invite to open heart education class. She said she is cancelling surgery, does not want to pursue surgery, and did not really expand on why. Notified crew scheduler. Lena Jensen APRN.CNP documented in this encounterMem[facility]10-28-2024 Telephone encounter Note * Telephone Encounter - Trev Weber MA - 02/04/2024 11:20 AM EDT Referral to EP Dr. Ramos sent via [employer] Confirmation number: [id number] 02/06/24 CT Chest wo contrast 11:40am @ [facility] [place] Phoned pt to schedule regarding future appt & info regarding EP referral. Ms. Mullins doesn't want to schedule any of the testing or appt to EP. She'll call if she changes hermind. I cancelled testing [facility]10-28-2024 Miscellaneous Notes* Telephone Encounter - Trev Weber MA - 02/04/2024 11:20 AM EDT Referral to EP Dr. Ramos sent via [employer] Confirmation number: [id number] 02/06/24 CT Chest wo contrast 11:40am @ [facility] Phoned pt to schedule regarding future appt & info regarding EP referral. Ms. Mullins doesn't want to schedule any of the testing or appt to EP. She'll call if she changes hermind. I cancelled testing documented in this encounterMemorial [facility]10-24-2024 NoteHNO ID: [id number] Author: JEREMIAS TANNER MD Service: ? Author Type: Physician Type: Progress Notes Filed: 05/15/2024 17:13 Note Text: CARDIOTHORACIC SURGERY CONSULT / HANDP SERVICE DATE: 01/30/2025 SERVICE TIME: 1700 Subjective PRIMARY SERVICE: Cardiothoracic Surgery CHIEF COMPLAINT: Mitral regurgitation HPI: This is a 78 year old woman referred evaluation of mitral regurgitation and for concerns for by mitral repair or replacement. She suffered an episode of syncope. 2D echo performed in December showed 3-4+ MR with anteriorly directed jet, presence of prolapse, normal V function. Transesophageal echo performed at [facility] in December showed 3+ MR with posterior distal prolapse, normal V function no other significant valve abnormalities. Left heart catheterization revealed only mild luminal irregularities with approximately 60% lesion in small ramus branch. Significant MR noted. She has a history of vasovagal syncope. She is now experiencing some exertional dyspnea and fatigue. She has no previous cardiac history. PAST MEDICAL HISTORY Diagnosis Date Acute gastritis without mention of hemorrhage Arthritis Asthma Chest pain, unspecified Diaphragmatic hernia without mention of obstruction or gangrene Diaphragmatic hernia without mention of obstruction or gangrene Dyspepsia and other specified disorders of function of stomach Dyspnea Esophageal reflux Essential hypertension, benign Generalized osteoarthrosis, unspecified site Hiatal hernia Hypertension Hypoglycemia Migraine Mitral valve disorders(424.0) OAB (overactive bladder) Other specified congenital anomaly of kidney HAD A KIDNEY REMOVED ABOUT 10 YEARS AGO [facility] - PAST MEDICAL HISTORY OF 06/07/2009 Pinched nerve right hip Shingles 06/07/2009 Solitary kidney, acquired Stricture and stenosis of esophagus Syncope and collapse Vitamin D deficiency PAST SURGICAL HISTORY Procedure Laterality Date ARTHROSCOPY KNEE DIAGNOSTIC W/WO SYNOVIAL BX SPX Arthroscopy, knee left , numerous surgeries CARDIAC CATH 01/17/2024 [facility] COLONOSCOPY FLX DX W/COLLJ SPEC WHEN PFRMD 06/26/2005 Colonoscopy ESOPHAGOGASTRODUODENOSCOPY TRANSORAL DIAGNOSTIC 11/21/2006 EGD ESOPHAGOSCOPY FLEX BALLOON DILAT <30 MM DIAM 07/13/2009 LAPAROSCOPY SURG CHOLECYSTECTOMY Cholecystectomy, lap PAST SURGICAL HISTORY OF 04/09/1995 right kidney removed - nonfunctioning TOTAL ABDOMINAL HYSTERECT W/WO RMVL TUBE OVARY Hysterectomy, LEANNE FAMILY HISTORY Problem Relation Age of Onset Cancer Mother pancreatic Cancer Brother pancreatic Stroke Father multiple, arrythmia Breast Cancer Maternal Aunt Breast Cancer Paternal Aunt Cancer Brother leukemia, bone Prostate Cancer Brother Headache Sister migraine Heart Sister Stroke Sister Heart Father Prostate Cancer Father Diabetes Brother Lipids Brother Social History Tobacco Use Smoking status: Never Smokeless tobacco: Never Vaping Use Vaping status: Never Used Substance Use Topics Alcohol use: Not Currently Comment: rarely Drug use: Never (Not in a hospital admission) COMPOUNDED PRESCRIPTION takes otc vit d COMPOUNDED PRESCRIPTION takes otc move free as directed furosemide (LASIX) 20 mg tablet Take 1 tablet by mouth once daily for 7 days. acetaminophen (TYLENOL) 325 mg tablet Take 2 tablets by mouth every 4 hours as needed (for mild pain; do not exceed more than 4000mg of Tylenol in a 24 hr period.). amiodarone (PACERONE) 200 mg tablet Take 1 tablet by mouth two times a day for 10 days, THEN 1 tablet once daily. aspirin 81 mg chewable tablet Take 1 tablet by mouth once daily. magnesium oxide (MAG-OX) 400 mg (241.3 mg magnesium) tablet Take 1 tablet by mouth two times a day. metoprolol succinate ER (TOPROL XL) 50 mg 24 hr tablet Take 1 tablet by mouth two times a day. pantoprazole DR (PROTONIX) 20 mg tablet Take 1 tablet by mouth every afternoon. predniSONE (DELTASONE) 10 mg tablet Take 10 mg by mouth as needed (arthritis). ALLERGIES Allergen Reactions Codeine GI Upset Medrol Dose Pack [M* Itching upper arms and chest redness and itching, and chest heaviness Oxycodone Other: See Comments Patient states that she vomited; she had back surgery [facility] Steroids [Betametha* Itching Sulfa (Sulfonamide * Hives Patient states she began to get allergic to it in the last two years. REVIEW OF SYSTEMS: As above. Objective PHYSICAL EXAM: BP 120/80 (BP Site: Left Arm, BP Position: Sitting, BP Cuff Size: Regular Adult) Pulse 81 Ht 5' 2 (1.575 m) Wt 160 lb 9.6 oz (72.8 kg) SpO2 97% BMI 29.37 kg/m? Body surface area is 1.78 meters squared. On examination, she appears well and is breathing comfortably. Vitals signs are BP 120/80 (BP Site: Left Arm, BP Position: Sitting, BP Cuff Size: Regular Adult) Pulse 81 Ht 5' 2 (1.575 m) Wt 160 lb 9.6 oz (72.8 kg) SpO2 97% BMI 29 (more content not included)...[facility]10-24-2024 History of Present illness Narrative* Jeremias Tanner MD - 01/31/2024 5:03 PM EDT CARDIOTHORACIC SURGERY CONSULT / H&P SERVICE DATE: 01/30/2025 SERVICE TIME: 1700 Subjective PRIMARY SERVICE: Cardiothoracic Surgery CHIEF COMPLAINT: Mitral regurgitation HPI: This is a 78 year old woman referred evaluation of mitral regurgitation and for concerns for by mitral repair or replacement. She suffered an episode of syncope. 2D echo performed in December showed 3-4+ MR with anteriorly directed jet, presence of prolapse, normal V function. Transesophagealecho performed at [facility] in December showed 3+ MR with posterior distal prolapse, normalV function no other significant valve abnormalities. Left heart catheterization revealed only mild luminal irregularities with approximately 60% lesion in small ramus branch. Significant MR noted. She has a history of vasovagal syncope. She is now experiencing some exertional dyspnea and fatigue. She has no previous cardiac history. PAST MEDICAL HISTORY Diagnosis Date Acute gastritis without mention of hemorrhage Arthritis Asthma Chest pain, unspecified Diaphragmatic hernia without mention of obstruction or gangrene Diaphragmatic hernia without mention of obstruction or gangrene Dyspepsia and other specified disorders of function of stomach Dyspnea Esophageal reflux Essential hypertension, benign Generalized osteoarthrosis, unspecified site Hiatal hernia Hypertension Hypoglycemia Migraine Mitral valve disorders(424.0) OAB (overactive bladder) Other specified congenital anomaly of kidney HAD A KIDNEY REMOVED ABOUT 10 YEARS AGO [facility] - PAST MEDICAL HISTORY OF 06/07/2009 Pinched nerve right hip Shingles 06/07/2009 Solitary kidney, acquired Stricture and stenosis of esophagus Syncope and collapse Vitamin D deficiency PAST SURGICAL HISTORY Procedure Laterality Date ARTHROSCOPY KNEE DIAGNOSTIC W/WO SYNOVIAL BX SPX Arthroscopy, knee left , numerous surgeries CARDIAC CATH 01/17/2024 [facility] COLONOSCOPY FLX DX W/COLLJ SPEC WHEN PFRMD 06/26/2005 Colonoscopy ESOPHAGOGASTRODUODENOSCOPY TRANSORAL DIAGNOSTIC 11/21/2006 EGD ESOPHAGOSCOPY FLEX BALLOON DILAT <30 MM DIAM 07/13/2009 LAPAROSCOPY SURG CHOLECYSTECTOMY Cholecystectomy, lap PAST SURGICAL HISTORY OF 04/09/1995 right kidney removed - nonfunctioning TOTAL ABDOMINAL HYSTERECT W/WO RMVL TUBE OVARY Hysterectomy, LEANNE FAMILY HISTORY Problem Relation Age of Onset Cancer Mother pancreatic Cancer Brother pancreatic Stroke Father multiple, arrythmia Breast Cancer Maternal Aunt Breast Cancer Paternal Aunt Cancer Brother leukemia, bone Prostate Cancer Brother Headache Sister migraine Heart Sister Stroke Sister Heart Father Prostate Cancer Father Diabetes Brother Lipids Brother Social History Tobacco Use Smoking status: Never Smokeless tobacco: Never Vaping Use Vaping status: Never Used Substance Use Topics Alcohol use: Not Currently Comment: rarely Drug use: Never (Not in a hospital admission) COMPOUNDED PRESCRIPTION takes otc vit d COMPOUNDED PRESCRIPTION takes otc move free as directed furosemide (LASIX) 20 mg tablet Take 1 tablet by mouth once daily for 7 days. acetaminophen (TYLENOL) 325 mg tablet Take 2 tablets by mouth every 4 hours as needed (for mild pain; do not exceed more than 4000mg of Tylenol in a 24 hr period.). amiodarone (PACERONE) 200 mg tablet Take 1 tablet by mouth two times a day for 10 days, THEN 1 tablet once daily. aspirin 81 mg chewable tablet Take 1 tablet by mouth once daily. magnesium oxide (MAG-OX) 400 mg (241.3 mg magnesium) tablet Take 1 tablet by mouth two times a day. metoprolol succinate ER (TOPROL XL) 50 mg 24 hr tablet Take 1 tablet by mouth two times a day. pantoprazole DR (PROTONIX) 20 mg tablet Take 1 tablet by mouth every afternoon. predniSONE (DELTASONE) 10 mg tablet Take 10 mg by mouth as needed (arthritis). ALLERGIES Allergen Reactions Codeine GI Upset Medrol Dose Pack [M* Itching upper arms and chest redness and itching, and chest heaviness Oxycodone Other: See Comments Patient states that she vomited; she had back surgery [facility] Steroids [Betametha* Itching Sulfa (Sulfonamide * Hives Patient states she began to get allergic to it in the last two years. REVIEW OF SYSTEMS: As above. Objective PHYSICAL EXAM: BP 120/80 (BP Site: Left Arm, BP Position: Sitting, BP Cuff Size: Regular Adult) Pulse 81 Ht 5'2 (1.575 m) Wt 160 lb 9.6 oz (72.8 kg) SpO2 97% BMI 29.37 kg/m Body surface area is 1.78 meters squared. On examination, she appears well and is breathing comfortably. Vitals signs are BP 120/80 (BP Site:Left Arm, BP Position: Sitting, BP Cuff Size: Regular Adult) Pulse 81 Ht 5' 2 (1.575 m) Wt 160 lb 9.6 oz (72.8 kg) SpO2 97% BMI 29.37 kg/m . There is no JVD. No cervical or supraclavicularadenopathy is palpated. The chest is symmetrical without deformity. Breath sounds are clear bilaterally. The cardiac rhythm is regular. There he has murmur of mitral regurgitation. The carotid, subclavian, and radial pulses are 2+ and equal bilaterally. The abdomen is soft and non-tender. There areno abdominal masses. There is no hepatojugular reflux. There is no pretibial edema. There is no club leroy or cyanosis. @LDAASSESS(2::::8:)@ DATA: Diagnostic tests reviewed for today's visit: echo, cath frederic Assessment/Plan Hilda Mullins is an 78-year-old 1 with recent episode of syncope found to have posterior leaflet prolapse with 3-4+ MR and well preserved left ventricle function. She has largely mild coronary arteryluminal irregularities. She is indication for mitral valve repair or replacement. Further workup pending. She wishes to pursue surgery at [facility]. @ The risks, benefits, and anticipated outcomes of the procedure; the risks and benefits of the alternatives to the procedure; and the roles and tasks of the personnel to be involved were discussed with the patient and she consents to the procedure and agrees to proceed. These findings will be communicated back to the requesting provider electronically. SIGNATURE: Jeremias Tanner MD PATIENT NAME: Hilda Mullins DATE: May 15, 2024 TIME: 5:03 PM PAGER/CONTACT #: [phone] * Esperanza Gonzalez APRN.CNP - 01/31/2024 3:30 PM EDT Procedure Type: Isolated MVr Perioperative Outcome Estimate % Operative Mortality 1.65% Morbidity & Mortality 6.17% Stroke 1.36% Renal Failure 1.03% Reoperation 2% Prolonged Ventilation 3.48% Deep Sternal Wound Infection 0.054% Long Hospital Stay (>14 days) 3.21% Short Hospital Stay (<6 days)* 43.6% Procedure Type: Isolated MVR Perioperative Outcome Estimate % Operative Mortality 3.25% Morbidity & Mortality 10.3% Stroke 1.82% Renal Failure 1.93% Reoperation 2.99% Prolonged Ventilation 6.33% Deep Sternal Wound Infection 0.053% Long Hospital Stay (>14 days) 6.39% Short Hospital Stay (<6 days)* 25.5% documented in this encounterMemorial [facility]10-24-2024 Instructions* Patient Instructions* Esperanza Gonzalez APRN.CNP - 01/31/2024 4:59 PM EDT You came in to see Dr. Tanner today for surgical evaluation of mitral valve disease, by reviewing your images/clinical data, Dr. Tanner recommend the following: Reviewed history and scans with you today, you meet recommendations for surgery Recommend moving forward with other testing Will need lung function tests, Chest ct scan Also recommend that you have patch monitor placed to see if there are any rhythm issues. This has been ordered for you. Please call [phone] to schedule Thanks for coming in to see us today. Please call us if you have any concerns/questions: [phone] Esperanza Gonzalez APRN.YESI Cardiothoracic surgery CONTINUING EDUCATION DIRECTOR documented in this encounterMemorial [facility]10-24-2024 Nurse Note* Tisha oDyle LPN - 01/31/2024 4:07 PM EDT CARDIAC REHAB 5 METER WALK TEST SERVICE DATE: 01/31/2024 SERVICE TIME: 3:59pm (Patient reports slight shortness of breath during her last leg of her 5 Meter Walk Test.) 6.66 sec 6.25 sec 6.52 sec ASSESSMENT: SIGNATURE: Tisha Doyle LPN PATIENT NAME: Hilda Mullins DATE: January 31, 2024 TIME: 4:07 PM PAGER/CONTACT #: [phone] [facility]10-24-2024 Nurse Note* Tisha Doyle LPN - 01/31/2024 4:07 PM EDT CARDIAC REHAB 5 METER WALK TEST SERVICE DATE: 01/31/2024 SERVICE TIME: 3:59pm (Patient reports slight shortness of breath during her last leg of her 5 Meter Walk Test.) 6.66 sec 6.25 sec 6.52 sec ASSESSMENT: SIGNATURE: Tisha Doyle LPN PATIENT NAME: Hilda Mullins DATE: January 31, 2024 TIME: 4:07 PM PAGER/CONTACT #: [phone] documented in this encounterMemorial [facility]10-24-2024 NoteHNO ID: [id number] Author: ESPERANZA GONZALEZ APRN.YESI Service: ? Author Type: Nurse Practitioner Type: Progress Notes Filed: 05/15/2024 17:13 Note Text: Procedure Type: Isolated MVr Perioperative Outcome Estimate % Operative Mortality 1.65% Morbidity AND Mortality 6.17% Stroke 1.36% Renal Failure 1.03% Reoperation 2% Prolonged Ventilation 3.48% Deep Sternal Wound Infection 0.054% Long Hospital Stay (>14 days) 3.21% Short Hospital Stay (<6 days)* 43.6% Procedure Type: Isolated MVR Perioperative Outcome Estimate % Operative Mortality 3.25% Morbidity AND Mortality 10.3% Stroke 1.82% Renal Failure 1.93% Reoperation 2.99% Prolonged Ventilation 6.33% Deep Sternal Wound Infection 0.053% Long Hospital Stay (>14 days) 6.39% Short Hospital Stay (<6 days)* 25.5%[facility]10-21-2024 Note [facility] Medical Records Department [address] [place] [address] History Physical Exam 01/28/24 0700 MR#: [id number] Acct: [id number] Name: HILDA MULLINS Rep #: [id number] : 1945 78 From: Timur Simpson MD PCP: Dr. Davey Valente, DO Status:[facility] Location: [place] [address] History and Physical Date of Admission: 01/28/24 Intake Vital Signs 08/03/2314:45 01/02/2412:54 01/09/2408:30 Height 5 ft 2 in 5 ft 2 in 5 ft 2 in Weight: 161 lb BMI 29.4 BP 159/81 H Blood Pressure Location Rt brachial Position Sitting Respiration 17 Pulse 75 Pulse Source Monitor Pulse Oximetry (%) 9 Oxygen Delivery Method room air Intake Visit Reasons: Hernia Chief Complaint: hernia Is patient in pain?: Yes Allergies omeprazole Allergy (Intermediate, Verified 01/24/24 13:10) VomitingSulfa (Sulfonamide Antibiotics) Allergy (Mild, Verified 01/09/24 08:31) Itchingcodeine Allergy (Verified 01/09/24 08:31) Vomitingmethylprednisolone (From Medrol) Adverse Reaction (Severe, Verified 01/09/24 08:31) Itching Medications ???Medication ???Instructions ???Recorded ???Confirmed ???Type cholecalciferol (vitamin D3) 25 1,000 unit PO DAILY 08/18/13 01/28/24 History mcg (1,000 unit) capsule pantoprazole 20 mg tablet,delayed 20 mg PO DAILY 01/05/22 01/28/24 History release (Protonix) clobetasol 0.05 % topical ointment 1 applic topical QHS PRN it 01/02/24 01/28/24 History glucosam 750 mg-chondroi 100 1 tab PO DAILY 01/02/24 01/28/24 History mg-hyalur 1.65 mg-CF borate 108 mg tablet (Move MedTel24) lisinopril 20 mg tablet 20 mg PO QDAY #90 tabs 01/02/24 01/28/24 Rx Have you fallen in the past year?: No PFSH Medical History Wears hearing aid Wears glasses Post-menopausal Anxiety History of steroid therapy Back pain Blackout Difficulty swallowing History of hiatal hernia History of ulceration Asthma Shortness of breath on exertion Non-smoker Leg cramps History of pain when walking History of echocardiogram History of transesophageal echocardiography (FREDERIC) Cardiology follow-up encounter Sacral nerve stimulator present Dyspnea Hypoglycemia Vestibular migraine OAB (overactive bladder) Vertigo Vitamin D deficiency GERD (gastroesophageal reflux disease) Hiatal hernia Solitary kidney, acquired Mitral valve prolapse Cardiac murmur Syncope and collapse Hypertension Arthritis Surgical History History of cardiac catheterization Hx of right cataract extraction Hx of left cataract extraction History of esophagogastroduodenoscopy (EGD) Hx of colonoscopy History of back surgery Hx of cholecystectomy Total knee replacement status History of hysterectomy History of kidney surgery Family History Aunt Breast cancerMother Pancreatic cancerBrother Pancreatic cancer Cancer of blood vessel Social History Smoking Status: Never smoker alcohol intake: never substance use type: does not use what type of physical activity do you participate in: walking seatbelt use: always do you feel safe at home: Yes additional social history: patient is retired from [employer] after 41 years Dewayne- works at [employer] HPI HPI HPI: Patient is an 78-year-old female who presents with right inguinal hernia that is bothering her. She said the pain is radiating up the right groin. ROS General General: Yes fatigue; No weight change, appetite, colon cancer, breast cancer or weakness HEENT HEENT: No difficulty swallowing, eye injury, eye surgery, swollen glands or hoarseness Endo Endocrine: No thyroid disease, diabetes mellitus, thyroid cancer, Hair loss, heat intolerance or cold intolerance Skin Skin: No rash or changing moles Musc Musculoskeletal: Yes back problems and arthritis; No rheumatoid arthritis, gout or joint pain Cardio Cardiovascular: Yes murmur and high blood pressure; No pacemaker, heart disease, atrial fibrillation, heart attack, heart stent, palpitations, shortness of breat with exertion or chest pain Psych Psychiatric: No depression, anxiety or hearing voices Resp Respiratory: No shortness of breath, No sleep apnea, No cough, No COPD, No asthma, No emphysema and No wheezing Gastro Gastrointestinal: Yes abdominal pain, No nausea or vomiting, No diarrhea, No constipation, No blood in stool, Yes acid reflux, No hemorrhoids, No ulcers, No gallbladder problem and No black,tarry stools Umair Hematologic: No blood thinners, No blood disorders, No bleeding, No anemia and No blood clots Neuro Neurologic: No system reviewed and no additional complaints, exce (more content not included)...[facility]10-11-2024 Telephone encounter Note* Telephone Encounter - Eloisa Mahmood - 01/18/2024 11:51 AM EDT Referral received from [facility] for Dr. Tanner. Fax was sent to [facility] for images. Referral from [facility]/Dr. Alejandro #[phone] - Non-rheumatic mitral prolapse severe and insufficiency [facility]10-11-2024 Miscellaneous Notes* Telephone Encounter - Eloisa Mahmood - 01/18/2024 11:51 AM EDT Referral received from [facility] for Dr. Tanner. Fax was sent to [facility] for images. Referral from [facility]/Dr. Alejandro #[phone] - Non-rheumatic mitral prolapse severe and insufficiency [facility]Reason for visit Narrative* Chief Complaint SCREENING/OSTEO REFERRAL Peteyneski vulvar/vaginal atrophy LUMBER SPINE Reason for Visit Vaginal atrophy Left lumbar radiculopathy [facility] Work Phone: Chief complaint+Reason for visit Narrative* Chief Complaint REFERRAL Rosalina vul sam/vaginal atrophy LUMBER SPINE LUMBAR PAIN lumbar Reason for Visit Vaginal atrophy Left lumbar radiculopathy Left lumbar radiculopathy [facility] Work Phone: Evaluation noteNo assessment information available [facility] Work Phone: Evaluation note* Diagnosis Onset Date Resolution Status Vaginal atrophy acute Left lumbar radiculopathy ac [facility] Work Phone: Evaluation note* Diagnosis Onset Date Resolution Status Vaginal atrophy acute Left lumbar radiculopathy ac tanner Left lumbar radiculopathy ac [facility] Work Phone: Evaluation note* Diagnosis Onset Date Resolution Status Left lumbar radiculopathy ac tanner Left lumbar radiculopathy ac [facility] Work Phone: Evaluation note* Diagnosis Onset Date Resolution Status Facet arthritis of lumbar region acute Lichen sclerosus acute Vaginal atrophy acute 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 [facility] Work Phone: Evaluation note* Diagnosis Onset Date Resolution Status Lichen sclerosus acute Vaginal atrophy acute 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 [facility] Work Phone: Evaluation note* Diagnosis Research subject- Primary documented in this encounter [facility] note* Diagnosis Pre-operative cardiovascular examination- Primary Shortness of breath Mitral valve disorder Mitral valve disorders Pre-operative cardiovascular examination Mitral valve disorder Mitral valve disorders documented in this encounter [facility] note* Diagnosis Preoperative clearance- Primary Preoperative examination, unspecified Mitral valve disorder Mitral valve disorders Encounter for preoperative anesthesiology assessment for cardiac surgery- Primary Pre-operative cardiovascular examination Mitral valve disorder Mitral valve disorders documented in this encounter [facility] note* Diagnosis Pre-operative cardiovascular examination Mitral valve disorder Mitral valve disorders Encounter for preoperative anesthesiology assessment for cardiac surgery- Primary Pre-operative cardiovascular examination Mitral valve disorder Mitral valve disorders [facility] Diagnosis Nonrheumatic mitral valve regurgitation- Primary Pre-operative cardiovascular examination Mitral valve disorder Mitral valve disorders [facility] Diagnosis Preop cardiovascular exam- Primary Pre-operative cardiovascular examination Essential hypertension, benign Severe mitral regurgitation Mitral valve disorders Mitral valve prolapse Mitral valve disorders Pre-operative cardiovascular examination Mitral valve disorder Mitral valve disorders [facility] Diagnosis Pre-op testing- Primary Preoperative examination, unspecified Pre-operative cardiovascular examination Mitral valve disorder Mitral valve disorders [facility] Diagnosis Encounter for preoperative anesthesiology assessment for cardiac surgery- Primary Pre-operative cardiovascular examination Mitral valve disorder Mitral valve disorders [facility] this [facility] Diagnosis Surgery follow-up- Primary Follow-up examination, following unspecified surgery Chest pain, unspecified type documented in this encounter [facility] note* Diagnosis Syncope, unspecified syncope type- Primary Pre-op testing Preoperative examination, unspecified Mitral valve prolapse Mitral valve disorders Nonrheumatic mitral valve regurgitation documented in this encounter [facility] Discharge instructionsAmbulatory Orders* Pain Management Location: None Selected [facility] Work Phone: Reason for referral (narrative)* Outpatient Procedure (Routine) - Authorized Specialty Diagnoses / Procedures Referred By Contac t Referred To [facility] Diagnoses Surgery follow-up Procedures ECG COMPLETE ECG ROUTINE ECG W/LEAST 12 LDS W/I&R Esme Arango MD [address] [place] [address] [facility] [address] [place] [address] Referral ID Status Reason Start Date Expiration Date Visits Requested Visits Authorized [id number] Authorized Auto-Generat ed Referral 03/31/2025 1 1 [facility] Summary Purpose Family History No Family History Records Found Relationship Condition Age at Onset Recorded Date/T clover Unknown Family History?- Unknown June 062020 3:32pm Family History?- Unknown June 062020 3:32pm Family History?- Unknown June 30, 2020 12:03pm Relationship Condition Age at Onset Recorded Date/T clover aunt Malignant neoplasm of breast Unknown mother Malignant neoplasm of pancreas Unknown brother Malignant neoplasm of pancreas Unknown Malignant neoplasm of blood vessel Unknow n Advance Directives No Advanced Directives Records Found Advance Directive Response Recorded Date/ Time Advance Directives Yes June 30, 021 12:03pm Living Will Yes June 30, 2020 12:03pm Power of Director Medicare Sales Yes June 30 12:03pm Advance Directive Response Recorded Date/ Time Advance Directives Yes June 30, 021 11:03am Living Will Yes June 30, 2020 11:03am Power of Director Medicare Sales Yes June 30 11:03am Advance Directive Response Recorded Date/ Time Advance Directives on File No u 2024 3:05pm Living Will Yes May 19, 025 3:14pm Power of Director Medicare Sales Yes May 19, 2024 3:14pm Advance Directives Yes January 17, 2024 7:22am Advance Directive Response Recorded Date/ Time Advance Directives on File No u 2024 3:05pm Living Will Yes May 19, 3:14pm Do you have a Healthcare Power of Director Medicare Sales? 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 Chief Complaint 2 MO F/U LUMBAR SPINE lumbar spine SCREENING PAIN- COPY PCP Reason for Visit Lichen sclerosus Vaginal atrophy 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 Chief Complaint PAIN- COPY PCP Chief Complaint Admit Date S/P CCF 03/24April 10, 2024 1: 41pm EORDER April 30, 2024 1 :34pm 1 M FU (OK PER MMM) May 14, 2024 3 :19pm heart valve repair May 19, 2024 1:51pm heart valve repair June 06, 2024 10:15am INT LAB ORDERS June 09, 2024 9:17 am heart valve repair June 20, 2024 10: 15am Reason for Visit Admit Date Postoperative atrial fibrillation Januar y 2024 1:41pm S/P mitral valve repair April 10 1:41pm Hypertension April 10, 2024 1: 41pm Postoperative atrial fibrillation Februa ry 2024 3:19pm S/P mitral valve repair May 14 3:19pm Hypertension May 14, 2024 3 :19pm Chief Complaint Admit Date S/P CCF 03/24April 10, 2024 1: 41pm EORDER April 30, 2024 1 :34pm 1 M FU (OK PER MMM) May 14, 2024 3 :19pm heart valve repair May 19, 2024 1:51pm heart valve repair June 06, 2024 10:15am INT LAB ORDERS June 09, 2024 9:17 am DYSPNEA July 04, 2024 10: 52am heart valve repair July 07, 2024 10: 15am Chief Complaint Admit Date S/P CCF 03/24April 10, 2024 1: 41pm EORDER April 30, 2024 1 :34pm 1 M FU (OK PER MMM) May 14, 2024 3 :19pm heart valve repair May 19, 2024 1:51pm heart valve repair June 06, 2024 10:15am INT LAB ORDERS June 09, 2024 9:17 am DYSPNEA July 04, 2024 10: 52am heart valve repair July 07, 2024 10: 15am heart valve repair July 09, 2024 7:23 am Chief Complaint Admit Date EORDER April 30, 2024 1 :34pm 1 M FU (OK PER MMM) May 14, 2024 3 :19pm heart valve repair May 19, 2024 1:51pm heart valve repair June 06, 2024 10:15am INT LAB ORDERS June 09, 2024 9:17 am DYSPNEA July 04, 2024 10: 52am heart valve repair July 07, 2024 10: 15am heart valve repair July 30, 2024 10: 15am PAIN- COPY PCP August 05, 2024 9:1 4am Reason for Visit Admit Date Postoperative atrial fibrillation ua 2024 3:19pm S/P mitral valve repair May 14 3:19pm Hypertension May 14, 2024 3 :19pm Chief Complaint Admit Date 1 M FU (OK PER MMM) May 14, 2024 3 :19pm heart valve repair May 19, 2024 1:51pm heart valve repair June 06, 2024 10:15am INT LAB ORDERS June 09, 2024 9:17 am DYSPNEA July 04, 2024 10: 52am heart valve repair July 07, 2024 10: 15am heart valve repair July 30, 2024 10: 15am PAIN- COPY PCP August 05, 2024 9:1 4am PAIN- COPY PCP August 29, 2024 2:42p m Chief Complaint Admit Date 1 M FU (OK PER MMM) May 14, 2024 3 :19pm heart valve repair May 19, 2024 1:51pm heart valve repair June 06, 2024 10:15am INT LAB ORDERS June 09, 2024 9:17 am DYSPNEA July 04, 2024 10: 52am heart valve repair July 07, 2024 10: 15am heart valve repair July 30, 2024 10: 15am PAIN- COPY PCP August 05, 2024 9:1 4am PAIN- COPY PCP August 29, 2024 2:42p m 3 M FU September 05, 2024 7:54a m Reason for Visit Admit Date Postoperative atrial fibrillation 2024 3:19pm S/P mitral valve repair May 14 3:19pm Hypertension May 14, 2024 3 :19pm Postoperative atrial fibrillation September 052024 7:54am S/P mitral valve repair September 05, 2024 7 :54am Hypertension September 05, 2024 7:54a m Reason for Referral Specialty Diagnoses / Procedures Referred By Contmartin t Referred To Contact Dentistry Diagnoses Pre-operative cardiovascular examination Mitral valve disorder Procedures CONSULT TO DENTISTRY OFFICE/OUTPATIENT [facility] 60 MINUTES Esme Arango MD [address] [place] [address] Referral ID Status Reason Start Date Expiration Date Visits Requested Visits Authorized [id number] New Request PCP Requested Referral 4 02/25/2025 1 1 Specialty Diagnoses / Procedures Referred By Contac t Referred To Contact [facility] [place] Diagnoses Pre-operative cardiovascular examination Mitral valve disorder Procedures ECHO ECHO TTHRC R-T 2D W/WOM-MODE COMPL SPEC&COLR D Esme Arango MD [address] [place] [address] [place] [address] Referral ID Status Reason Start Date Expiration Date Visits Requested Visits Authorized [id number] Authorized Auto-Generat ed Referral 4 02/25/2025 1 1 Specialty Diagnoses / Procedures Referred By Contac t Referred To Contact [facility] Diagnoses Pre-operative cardiovascular examination Mitral valve disorder Procedures ECG COMPLETE ECG ROUTINE ECG W/LEAST 12 LDS W/I&R Esme Arango MD [address] [place] [address] [place] [address] Referral ID Status Reason Start Date Expiration Date Visits Requested Visits Authorized [id number] New Request Auto-Generat ed Referral 4 02/25/2025 1 1 Specialty Diagnoses / Procedures Referred By Contac t Referred To Contact Cardiac Surg Diagnoses Pre-operative cardiovascular examination Mitral valve disorder Procedures CARDIOTHORACIC PREOP EVALUATION OFFICE/OUTPATIENT [facility] 60 MINUTES Esme Arango MD [address] [place] [address] Referral ID Status Reason Start Date Expiration Date Visits Requested Visits Authorized [id number] Authorized PCP Requested Referral 4 02/25/2025 1 1 Specialty Diagnoses / Procedures Referred By Contac t Referred To Contact Cardiology Diagnoses Pre-operative cardiovascular examination Mitral valve disorder Procedures CONSULT TO CARDIOLOGY OFFICE/OUTPATIENT [facility] 60 [place] [address] [place] [address] Referral ID Status Reason Start Date Expiration Date Visits Requested Visits Authorized [id number] Authorized PCP Requested Referral 4 02/25/2025 1 1 Specialty Diagnoses / Procedures Referred By Contac t Referred To [facility] Procedures CARDIOVASCULAR MEDICINE OP FOLLOW UP APPT ORDER Herlinda Nesbitt MD [address] [place] [address] [facility] [address] [place] [address] Referral ID Status Reason Start Date Expiration Date Visits Requested Visits Authorized [id number] Ref Not Required PCP Requested Referral 4 03/04/2025 1 1 Specialty Diagnoses / Procedures Referred By Contac t Referred To Contact Diagnoses Syncope, unspecified syncope type Pre-op testing Mitral valve prolapse Procedures CONSULT TO ELECTROPHYSIOLOGY OFFICE/OUTPATIENT [facility] 60 MINUTES Jeremias Tanner MD [address] [place] [address] Davon Ramos MD [address] [place] [address] Referral ID Status Reason Start Date Expiration Date Visits Requested Visits Authorized [id number] Authorized PCP Requested Referral 4 01/30/2025 1 1 Specialty Diagnoses / Procedures Referred By Contac t Referred To Contact CT IMAGING Diagnoses Syncope, unspecified syncope type Pre-op testing Mitral valve prolapse Procedures CT CHEST WO IVCON DIAGNOSTIC COMPUTED TOMOGRAPHY THORAX W/O VANESARST Esperanza Gonzalez, LENNY.[employer] [address] [place] [address] Ct [facility] [place] [address] Referral ID Status Reason Start Date Expiration Date Visits Requested Visits Authorized [id number] Authorized Auto-Generat ed Referral 4 03/01/2025 1 1 Additional Source Comments INFORMATION SOURCE (unrecogn ized section and content) DATE CREATED AUTHOR 09/02/2020 [facility] DATE CREATED AUTHOR AUTHOR'S ORGANIZ ATION 01/21/2024 [facility] DATE CREATED AUTHOR AUTHOR'S ORGANIZ ATION 05/18/2024 [facility] DATE CREATED AUTHOR AUTHOR'S ORGANIZ ATION 08/14/2024 [facility] DATE CREATED AUTHOR AUTHOR'S ORGANIZ ATION 09/07/2024 [facility] Goals (unrecognized section and content) Goals may be documented in a n alternate sectionGoals may be documented in an alternate sectionGoals may be documented in an alternate sectionGoals may be documented in an alternate sectionGoals may be documented in an alternate sectionGoals may be documented in an alternate sectionGoals may be documented in an alternate sectionGoals may be documented in an alternate sectionGoals may be documented in an alternate sectionGoals may be documented in an alternate sectionGoals may be documented in an alternate sectionGoals may be documented in an alternate sectionGoals may be documented in an alternate sectionGoals may be documented in an alternate section Care Teams (unrecognized sec tion and content) Team Status: Active Member Role Status Dates Dr. Davey Valente DO Family Provider Active Dr. Davey Valente DO Primary Care Provider Active Team Status: Inactive Member Role Status Dates Dr. Davey Valente DO Primary Care Provider, Referrin g Provider Active Dr. Julio Ochoa DO Attending Provider Active Team Status: Inactive Member Role Status Dates Dr. Davey Valente DO Primary Care Prov ider, Attending Provider, Referring Provider Active Team Status: Inactive Member Role Status Dates Dr. Davey Valente DO Primary Care Provider Active Dr. Julio Ochoa DO Attending Provider Active Team Status: Inactive Member Role Status Dates Dr. Davey Valente DO Primary Care Provider Active Dr. Shyla Randle MD Attending Provider, Referring Provider Active Team Status: Inactive Member Role Status Dates Dr. Davey Valente DO Primary Care Provider, Referrin g Provider Active Dr. Chani Cervantes MD Attending Provider Active [employer] Relationship Specialty Start Date End Date Davey Valente DO [address] [place] [phone] PCP - General Family Medicine 01/24/24 Kenny Alejandro MD [address] [facility] [address] [place], [place] [address] Cardiology 01/24/24 [employer] Pan [employer]aser Relationship Specialty Start Date End Date Davey Valente DO [address] [place] [address] PCP - General Family Medicine 01/24/24 Kenny Alejandro MD [address] [place] [address]82- Cardiology 01/24/24 Bread Pan Greaser Relationship Specialty Start Date End Date Davey Valente DO [address] [place] [address] PCP - General Family Medicine 01/24/24 Kenny Alejandro MD [address] [place] [address] 023- Cardiology 01/24/24 Esme Arango MD [address] [place] [phone] Surgeon Cardiac Surg 02/20/24 [employer] Pan Greaser Relationship Specialty Start Date End Date Davey ValenteDO [address] [place] [address] PCP - General Family Medicine 01/24/24 Kenny Alejandro MD [address] [place] [address]- Cardiology 01/24/24 Esme Arango MD [address] [place] [address] Surgeon Cardiac Surg 02/20/24 [employer] Pan Greaser Relationship Specialty Start Date End Date Ambrosio, Davey EsmeDO [address] [facility] [place] [phone] PCP - General Family Medicine 01/24/24 Kenny Alejandro MD [address] [phone] Cardiology 01/24/24 Esme Arango MD [address] [place] [address] Surgeon Cardiac Surg 02/20/24 Herlinda Nesbitt MD [address] [place] [address] Primary Staff Physician Cardiology 03/03/24 [employer] Pan Greaser Relationship Specialty Start Date End Date AmbrosioDavey cano DO Esme [address] [place] [phone] PCP - General Family Medicine 01/24/24 Kenny Alejandro MD [address] [phone] Cardiology 01/24/24 Esme Arango MD [address] [place] [address] Surgeon Cardiac Surg 02/20/24 Herlinda Nesbitt MD [address] [place] [address] Primary Staff Physician Cardiology 03/03/24 Bread Pan Greaser Relationship Specialty Start Date End Date AmbrosioDavey joseDO [address] [place] [phone] PCP - General Family Medicine 01/24/24 Kenny Alejandro MD [address] [phone] Cardiology 01/24/24 Esme Arango MD [address] [place] [phone] Surgeon Cardiac Surg 02/20/24 Herlinda Nesbitt MD [address] [place] [address] Primary Staff Physician Cardiology 03/03/24 Bread Pan Greaser Relationship Specialty Start Date End Date AmbrosioDavey DO [address] [place] [address] PCP - General Family Medicine 01/24/24 Kenny Alejandro MD [address] [phone] Cardiology 01/24/24 Esme Arango MD [address] [place] [address] Surgeon Cardiac Surg 02/20/24 Herlinda Nesbitt MD [address] [place] [address] Primary Staff Physician Cardiology 03/03/24 Bread Pan Greaser Relationship Specialty Start Date End Date Davey Valente DO [address] [place] [phone] PCP - General Family Medicine 01/24/24 Kenny Alejandro MD [address] [facility] [address] [phone] Cardiology 01/24/24 Esme Arango MD [facility] [place] [phone] Surgeon Cardiac Surg 02/20/24 Herlinda Nesbitt MD [facility] [place] [address] Primary Staff Physician Cardiology 03/03/24 Bread Pan Greaser Relationship Specialty Start Date End Date Davey Valente DO [address] [place] [address] PCP - General Family Medicine 01/24/24 Kenny Alejandro MD [address] [facility] [address] [phone] Cardiology 01/24/24 Esme Arango MD [address] [place] [address] Surgeon Cardiac Surg 02/20/24 Bread Pan Greaser Relationship Specialty Start Date End Date Davey Valente DO [address] [place] [phone] PCP - General Family Medicine 01/24/24 Kenny Alejandro MD [address] [address] Cardiology 01/24/24 Esme Arango MD [address] [place] [address] Surgeon Cardiac Surg 02/20/24 Herlinda Nesbitt MD [facility] [place] [address] Primary Staff Physician Cardiology 03/03/24 Bread Pan Greaser Relationship Specialty Start Date End Date Davey Valente DO [address] [place] [phone] PCP - General Family Medicine 01/24/24 Kenny Alejandro MD [address] [phone] Cardiology 01/24/24 Esme Arango MD [address] [place] [phone] Surgeon Cardiac Surg 02/20/24 Herlinda Nesbitt MD [address] [place] [address] Primary Staff Physician Cardiology 03/03/24 Bread Pan Greaser Relationship Specialty Start Date End Date Davey Valente DO [address] [facility] [place] [id number] PCP - General Family Medicine 01/24/24 Kenny Alejandro MD [address] [id number] Cardiology 01/24/24 Bread Pan Greaser Relationship Specialty Start Date End Date Davey Valente DO [address] [facility] [place] [phone] PCP - General Family Medicine 01/24/24 Kenny Alejandro MD [address] [phone] Cardiology 01/24/24 Esme Arango MD [facility] [place] [phone] Surgeon Cardiac Surg 02/20/24 Herlinda Nesbitt MD [address] [place] [address] Primary Staff Physician Cardiology 03/03/24 Team Status: Active Member Role Status Dates Dr. Davey Valente DO Primary Care Provider Active Team Status: Inactive Member Role Status Dates Dr. Davey Valente DO Primary Care Provider Active Start: April 10, 2024 End: April 10, 2024 Soraya CLAYTON PA Attending Provider Active Start: April 10, 2024 End: April 10, 2024 Soraya CLAYTON PA Referring Provider Active Start: April 10, 2024 End: April 10, 2024 Team Status: Inactive Member Role Status Dates Dr. Davey Valente DO Primary Care Provider Active Start: April 10, 2024 End: April 10, 2024 Dr. Davey Valente DO Referring Provider Active Start: April 10, 2024 End: April 10, 2024 Soraya Mark PA, PA Attending Provider Active Start: April 10, 2024 End: April 10, 2024 Team Status: Inactive Member Role Status Dates Dr. Davey Valente DO Primary Care Provider Active Start: April 30, 2024 End: April 30, 2024 Soraya Mark PA, PA Attending Provider Active Start: April 30, 2024 End: April 30, 2024 Soraya Mark PA, PA Referring Provider Active Start: April 30, 2024 End: April 30, 2024 Team Status: Inactive Member Role Status Dates Dr. Davey Valente DO Primary Care Provider Active Start: May 14, 2024 End: May 14, 2024 Dr. Davey Valente DO Referring Provider Active Start: May 14, 2024 End: May 14, 2024 Soraya CLAYTON, PA Attending Provider Active Start: May 14, 2024 End: May 14, 2024 Team Status: Inactive Member Role Status Dates Dr. Davey Valente DO Primary Care Provider Active Start: May 19, 2024 End: May 19, 2024 Dr. Kenny Alejandro MD Attending Provider Active S tart: May 19, 2024 End: May 19, 2024 Dr. Kenny Alejandro MD Referring Provider Active S tart: May 19, 2024 End: May 19, 2024 Team Status: Inactive Member Role Status Dates Dr. Davey Valente DO Primary Care Provider Active Start: June 06, 2024 End: June 06, 2024 Dr. Kenny Alejandro MD Attending Provider Active S tart: June 06, 2024 End: June 06, 2024 Dr. Kenny Alejandro MD Referring Provider Active S tart: June 06, 2024 End: June 06, 2024 Team Status: Inactive Member Role Status Dates Dr. Davey Valente DO Primary Care Provider Active Start: June 09, 2024 End: June 09, 2024 Soraya Mark PA, PA Attending Provider Active Start: June 09, 2024 End: June 09, 2024 Soraya Mark PA, PA Referring Provider Active Start: June 09, 2024 End: June 09, 2024 Team Status: Active Member Role Status Dates Dr. Davey Valente DO Primary Care Provider Active Start: June 20, 2024 Dr. Kenny Alejandro MD Attending Provider Active S tart: June 20, 2024 Dr. Kenny Alejandro MD Referring Provider Active S tart: June 20, 2024 Team Status: Active Member Role Status Dates Dr. Davey Valente DO Primary Care Provider Active Start: July 04, 2024 Soraya Mark PA, PA Attending Provider Active Start: July 04, 2024 Soraya Mark PA, PA Referring Provider Active Start: July 04, 2024 Team Status: Active Member Role Status Dates Dr. Davey Valente DO Primary Care Provider Active Start: July 04, 2024 Dr. Kenny Alejandro MD Attending Provider Active S tart: July 04, 2024 Team Status: Inactive Member Role Status Dates Dr. Davey Valente DO Primary Care Provider Active Start: July 07, 2024 End: July 07, 2024 Dr. Kenny Alejandro MD Attending Provider Active S tart: July 07, 2024 End: July 07, 2024 Dr. Kenny Alejandro MD Referring Provider Active S tart: July 07, 2024 End: July 07, 2024 Team Status: Inactive Member Role Status Dates Dr. Davey Valente DO Primary Care Provider Active Start: July 04, 2024 End: July 04, 2024 Soraya Mark PA, PA Attending Provider Active Start: July 04, 2024 End: July 04, 2024 Soraya Mark PA, PA Referring Provider Active Start: July 04, 2024 End: July 04, 2024 Team Status: Active Member Role Status Dates Dr. Davey Valente DO Primary Care Provider Active Start: July 09, 2024 Dr. Kenny Alejandro MD Attending Provider Active S tart: July 09, 2024 Dr. Kenny Alejandro MD Referring Provider Active S tart: July 09, 2024 Team Status: Inactive Member Role Status Dates Dr. Davey Valente DO Primary Care Provider Active Start: July 30, 2024 End: August 06, 2024 Dr. Kenny Alejandro MD Attending Provider Active S tart: July 30, 2024 End: August 06, 2024 Dr. Kenny Alejandro MD Referring Provider Active S tart: July 30, 2024 End: August 06, 2024 Team Status: Inactive Member Role Status Dates Dr. Davey Valente DO Primary Care Provider Active Start: August 05, 2024 End: August 05, 2024 Dr. Shyla Randle MD Attending Provider Active Start: August 05, 2024 End: August 05, 2024 Dr. Shyla Randle MD Referring Provider Active Start: August 05, 2024 End: August 05, 2024 Team Status: Inactive Member Role Status Dates Dr. Davey Valente DO Primary Care Provider Active Start: August 29, 2024 End: August 29, 2024 Dr. Shyla Randle MD Attending Provider Active Start: August 29, 2024 End: August 29, 2024 Dr. Shyla Randle MD Referring Provider Active Start: August 29, 2024 End: August 29, 2024 Team Status: Inactive Member Role Status Dates Dr. Davey Valente DO Primary Care Provider Active Start: September 05, 2024 End: September 05, 2024 Dr. Davey Valente DO Referring Provider Active Start: September 05, 2024 End: September 05, 2024 Soraya CLAYTON, PA Attending Provider Active Start: September 05, 2024 End: September 05, 2024 Source Comments (unrecognize d section and content) In the event this informatio n is protected by the Federal Confidentiality of Alcohol and Drug Abuse Patient Records regulations: The Federal rules restrict any use of the information to criminally investigate or prosecute any alcohol or drug abuse patient.[facility] the event this information is protected by the Federal Confidentiality of Alcohol and Drug Abuse Patient Records regulations: The Federal rules restrict any use of the information to criminally investigate or prosecute any alcohol or drug abuse patient.[facility] the event this information is protected by the Federal Confidentiality of Alcohol and Drug Abuse Patient Records regulations: The Federal rules restrict any use of the information to criminally investigate or prosecute any alcohol or drug abuse patient.[facility] the event this information is protected by the Federal Confidentiality of Alcohol and Drug Abuse Patient Records regulations: The Federal rules restrict any use of the information to criminally investigate or prosecute any alcohol or drug abuse patient.[facility] the event this information is protected by the Federal Confidentiality of Alcohol and Drug Abuse Patient Records regulations: The Federal rules restrict any use of the information to criminally investigate or prosecute any alcohol or drug abuse patient.[facility] the event this information is protected by the Federal Confidentiality of Alcohol and Drug Abuse Patient Records regulations: The Federal rules restrict any use of the information to criminally investigate or prosecute any alcohol or drug abuse patient.[facility] the event this information is protected by the Federal Confidentiality of Alcohol and Drug Abuse Patient Records regulations: The Federal rules restrict any use of the information to criminally investigate or prosecute any alcohol or drug abuse patient.[facility] the event this information is protected by the Federal Confidentiality of Alcohol and Drug Abuse Patient Records regulations: The Federal rules restrict any use of the information to criminally investigate or prosecute any alcohol or drug abuse patient.[facility] Hospital[facility] the event this information is protected by the Federal Confidentiality of Alcohol and Drug Abuse Patient Records regulations: The Federal rules restrict any use of the information to criminally investigate or prosecute any alcohol or drug abuse patient.[facility] the event this information is protected by the Federal Confidentiality of Alcohol and Drug Abuse Patient Records regulations: The Federal rules restrict any use of the information to criminally investigate or prosecute any alcohol or drug abuse patient.[facility] Hospital[facility] the event this information is protected by the Federal Confidentiality of Alcohol and Drug Abuse Patient Records regulations: The Federal rules restrict any use of the information to criminally investigate or prosecute any alcohol or drug abuse patient.[facility] Hospital[facility] the event this information is protected by the Federal Confidentiality of Alcohol and Drug Abuse Patient Records regulations: The Federal rules restrict any use of the information to criminally investigate or prosecute any alcohol or drug abuse patient.[facility] Hospital[facility] the event this information is protected by the Federal Confidentiality of Alcohol and Drug Abuse Patient Records regulations: The Federal rules restrict any use of the information to criminally investigate or prosecute any alcohol or drug abuse patient.[facility] Hospital[facility] the event this information is protected by the Federal Confidentiality of Alcohol and Drug Abuse Patient Records regulations: The Federal rules restrict any use of the information to criminally investigate or prosecute any alcohol or drug abuse patient.[facility] Hospital[facility] the event this information is protected by the Federal Confidentiality of Alcohol and Drug Abuse Patient Records regulations: The Federal rules restrict any use of the information to criminally investigate or prosecute any alcohol or drug abuse patient.[facility] Hospital[facility] the event this information is protected by the Federal Confidentiality of Alcohol and Drug Abuse Patient Records regulations: The Federal rules restrict any use of the information to criminally investigate or prosecute any alcohol or drug abuse patient.[facility] HospitalIn the event this information is protected by the Federal Confidentiality of Alcohol and Drug Abuse Patient Records regulations: The Federal rules restrict any use of the information to criminally investigate or prosecute any alcohol or drug abuse patient.[facility] HospitalIn the event this information is protected by the Federal Confidentiality of Alcohol and Drug Abuse Patient Records regulations: The Federal rules restrict any use of the information to criminally investigate or prosecute any alcohol or drug abuse patient.[facility] HospitalIn the event this information is protected by the Federal Confidentiality of Alcohol and Drug Abuse Patient Records regulations: The Federal rules restrict any use of the information to criminally investigate or prosecute any alcohol or drug abuse patient.[facility] Reason for Visit (unrecogniz ed section and content) Reason Comments Patient Update Reason Comments Insurance Inquiry Reason Comments Informed Consent Reason Comments Referral Information Pre-Op CTHO Consult Cardiac Preop Checklist Specialty Diagnoses / Procedures Referred By Contac t Referred To Contact Dentistry Diagnoses Pre-operative cardiovascular examination Mitral valve disorder Procedures CONSULT TO DENTISTRY OFFICE/OUTPATIENT [facility] 60 MINUTES Es[place] Arango MD [address] [place] [id number] Referral ID Status Reason Start Date Expiration Date Visits Requested Visits Authorized [id number] New Request PCP Requested Referral 4 02/25/2025 1 1 Reason Comments Radio Main J1 Reason Comments Patient Education Reason Comments Appointment Reason Comments New Patient Consult Referral [facility] palafox, Dr. Alejandro - non-rheumatic mitral prolapse severe and insufficiency FOR RECORDS PERTAINING TO PATIENTS WHO ARE [...] BE BASED ON THE PRIMARY CLINICAL RECORDS. [facility]. provides no warranty or guarantee of the accuracy or completeness of information in this document.
--- NOTE | 2024-09-17 22:33 | EDS_ITS ---
HPI History of Present Illness Chief Complaint: Shortness of Breath Narrative Narrative: 78-year-old female past medical history of mitral valve repair proximately 6 months ago, presents today with shortness of breath that she has had intermittently over the last few weeks. She and her family state that she has been having episodes of atrial fibrillation after her surgery. She was sent home on amiodarone and metoprolol. About a week ago, her semiconductor wafers tester Dr. Alejandro stopped the metoprolol. She states that she can feel her heart skipping a beat and she is short of breath. No recent fevers or chills, no cough, no leg swelling. She states that she was concerned that she was in atrial fibrillation. She currently does not take a blood thinner such as Xarelto or Eliquis but does take aspirin. [facility] Medical History Postoperative atrial fibrillation Wears hearing aid Wears glasses Post-menopausal Anxiety History of steroid therapy Back pain Blackout Difficulty swallowing History of hiatal hernia History of ulceration Asthma Shortness of breath on exertion Non-smoker Leg cramps History of pain when walking History of echocardiogram History of transesophageal echocardiography (SRIDEVI) Cardiology follow-up encounter Sacral nerve stimulator present Dyspnea Hypoglycemia Vestibular migraine OAB (overactive bladder) Vertigo Vitamin D deficiency GERD (gastroesophageal reflux disease) Hiatal hernia Solitary kidney, acquired Mitral valve prolapse Cardiac murmur Syncope and collapse Hypertension Arthritis Home Medications ?Medication ?Instructions ?Recorded ?Last Taken ?Type pantoprazole 20 mg tablet,delayed 20 mg PO DAILY 01/0501/27/24 History release (Protonix) aspirin 81 mg tablet,delayed 81 mg PO QDAY 04/10/24 Un known History release (Adult Low Dose Aspirin) cholecalciferol (vitamin D3) 25 25 mcg PO QDAY 5 Unknown History mcg (1,000 unit) capsule glucosam 750 mg-chondroi 100 1 tab PO DAILY 05/14/24 U nknown History mg-hyalur 1.65 mg-CF borate 108 mg tablet ([facility]) Allergy/AdvReac Type Severity Reaction Status Date / Time oxycodone Allergy Severe Nausea Verified 09/17/24 21:44 omeprazole Allergy Intermediate Vomiting Verified 09/17/24 21:44 Sulfa (Sulfonamide Allergy Mild Itching Verified 09/17/24 21:44 Antibiotics) codeine Allergy Vomiting Verified 09/17/24 21:44 methylprednisolone (From AdvReac Severe Itching Verified 09/17/24 21:44 Medrol) Family History Aunt Breast cancer Mother Pancreatic cancer Brother Pancreatic cancer Cancer of blood vessel Surgical History S/P mitral valve repair S/P inguinal hernia repair History of cardiac catheterization Hx of right cataract extraction Hx of left cataract extraction History of esophagogastroduodenoscopy (EGD) Hx of colonoscopy History of back surgery Hx of cholecystectomy Total knee replacement status History of hysterectomy History of kidney surgery Social History Smoking Status: Never smoker alcohol intake: never substance use type: does not use what type of physical activity do you participate in: walking seatbelt use: always do you feel safe at home: Yes additional social history: patient is retired from [employer] after 41 years [employer]- works at [employer] ED ROS Narrative Review of systems positive for heart palpitations and shortness of breath. No fevers or chills, no nausea or vomiting, no leg swelling. Denies other symptoms. No true exacerbating or alleviating factors. EXAM Physical Exam Narrative Exam Narrative: Afebrile. Vital signs noted. Nontoxic-appearing. Cardiovascular examination reveals a regular rate but irregular rhythm. Lungs are clear to auscultation bilaterally. Abdomen is soft and nontender with normal active bowel sounds. No guarding or rebound. Neurological examination nonfocal, nonlateralizing. No noted pedal edema. Const Vital Signs: 09/17/24 21:44 09/17/24 21:48 09/17/24 22:16 Temperature 97.3 F L Temperature Source Temporal Pulse Rate 97 Respiratory Rate 18 Respiratory Effort Blood Pressure 166/88 H Blood Pressure Mean 114 Pulse Ox 97 97 Oxygen Delivery Method Room Air Room Air 09/17/24 22:19 09/17/24 23:45 Temperature Temperature Source Pulse Rate 86 Respiratory Rate 18 Respiratory Effort Normal Blood Pressure 137/65 H Blood Pressure Mean 89 Pulse Ox 97 Oxygen Delivery Method Room Air MDM MDM MDM Narrative Medical decision making narrative: Differential diagnosis includes but not limited to atrial fibrillation versus pneumonia versus pneumothorax versus subjective shortness of breath. EKG was obtained and interpreted by myself independently as normal sinus rhythm at 90 bpm with frequent premature supraventricular complexes and frequent PVCs. I reviewed her laboratory work that was entered per protocol and WBC count 10.0 with hemoglobin 12.2, hematocrit 38.8, platelet count 272. I reviewed her BMP and creatinine slightly elevated at 1.35 which I think is nonspecific with BUN of 23, glucose of 106 and normal anion gap of 12. Initial high-sensitivity troponin is 10 with 2-hour being 10. I do not feel she needs a 4-hour troponin as her troponins are flat. Chest x-ray in 1 view interpreted by myself independently shows no evidence of pneumonia or pneumothorax. I reviewed the radiology report which confirms my independent interpretation. Upon repeat examination, her heart rate on the monitor appears regular without PVCs with a rate control in the 80s. She and her family state that she is no longer taking metoprolol or amiodarone. I do not feel she requires observation or admission. She was told that she is not in atrial fibrillation currently, and that she should follow-up with her semiconductor wafers tester and see if they want to restart her on metoprolol for her palpitations. Return instructions to the emergency department were reviewed. Disposition is discharged in stable condition. History & Record Review Discussion w/independent historian: Patient and Family Lab Data Attestation: I reviewed the patient's lab results. Labs: Laboratory Results - last 24 hr 09/17/24 09/17/24 22:04 23:40 WBC 10.0 RBC 4.41 Hgb 12.2 Hct 38.8 MCV 88.0 MCH 27.7 MCHC 31.4 L RDW Std Deviation 50.9 H RDW Coeff of Yousuf 15.7 H Plt Count 272 MPV 11.8 Immature Gran % (Auto) 0.200 Neut % (Auto) 70.4 H Lymph % (Auto) 19.8 [place] % (Auto) 7.7 Eos % (Auto) 1.4 Baso % (Auto) 0.5 Absolute Neuts (auto) 7.1 Absolute Lymphs (auto) 1.99 Nucleated RBC % 0 Sodium 140 Potassium 3.9 Chloride 104 Carbon Dioxide 23.6 Anion Gap 12 BUN 23 H Creatinine 1.35 H Estim Creat Clear Calc 30.59 L Est GFR (MDRD) Non-Af 40 L BUN/Creatinine Ratio 16.8 Glucose 106 H Calcium 9.6 Troponin T High Sens 10 Troponin T Hi Sens 2 Hr 10 Radiography Chest X-Ray - ED: 1 View, Read by ED Physician and Read by Radiologist Diagnostic Testing: Clinical Impression(s) from Imaging Studies Chest X-Ray 09/17/24 22:37 IMPRESSION: No Acute Findings. Reading Location: [place] [id number] Discharge Plan Triage Chief Complaint: Shortness of Breath ED Provider: Obi Rodgers Dx/Rx/DC Orders Clinical Impression: Palpitations, PVCs (premature ventricular contractions), Premature contractions, supraventricular, S/P mitral valve repair Instructions: ED About Arrhythmias, ED Palpitations Prescriptions: No Action pantoprazole [Protonix] 20 mg tablet,delayed release (DR/EC) 20 mg PO DAILY aspirin [Adult Low Dose Aspirin] 81 mg tablet,delayed release (DR/EC) 81 mg PO QDAY cholecalciferol (vitamin D3) 25 mcg (1,000 unit) capsule 25 mcg PO QDAY [facility] [employer] 750 mg-100 mg- 1.65 mg-108 mg tablet 1 tab PO DAILY Primary Care Provider: Ricardo Reynolds Referrals: Kenny Alejandro MD [Med Staff - Active Staff] - 1 Day Ricadro Reynolds DO [Primary Care Provider] - Activity Restrictions/Additional Instructions: Return with increased palpitations and elevated heart rate, new or worsening symptoms. Follow-up with your semiconductor wafers tester. See if they want to restart you on metoprolol. Print Language: Bengali Disposition Disposition: Home, Self Care
--- NOTE | 2024-09-17 22:37 | RAD_ITS ---
PROCEDURE: CHEST 1 VIEW (PORTABLE) 09/17/2024 REASON FOR EXAM: SHORTNESS OF BREATH TECHNIQUE: Frontal view of the chest. COMPARISON: 04/12/2024. FINDINGS: Prior sternotomy. Spinal stimulator is present. The heart is normal in size. The lungs are clear. No acute osseous abnormalities. RAD/Chest 1 View (Portable) IMPRESSION: No Acute Findings. Reading Location: [place] [address]
[2024-09-17 22:43] LABS: Troponin T High Sensitivity 10 ng/L (<=14)
[2024-09-17 22:44] LABS: Anion Gap 12 (5-15); BUN 23 mg/dL (4-19); BUN/Creat Ratio 16.8 RATIO (10-20); Calcium,Total 9.6 mg/dL (7.6-11.0); Carbon Dioxide 23.6 mmol/L (21.0-32.0); Chloride 104 mmol/L (98-108); Creatinine, Serum 1.35 mg/dL (0.70-1.20); EST Glomerular Filtration Rate 40 (>60); Estimated Creatinine Clearance 30.59 ml/min (50-250); Glucose 106 mg/dL (70-99); Potassium 3.9 mmol/L (3.3-5.1); Sodium Level 140 mmol/L (133-145)
[2024-09-17 23:45] VITALS: BP 137/65; PULSE 86; RESP 18; O2SAT 97
[2024-09-18 00:03] LABS: Troponin T High Sens 2 HR 10 ng/L (<=14)
[2024-09-18 00:29] VITALS: BP 140/79; PULSE 89; RESP 18; TEMP 36.7; O2SAT 98
== END 2024-09-18 00:34 | disposition home or self-care (01) ==
PROVIDERS: Emergency Provider Emergency Medicine; PCP Family Medicine; Visit Provider Emergency Medicine
DX: R00.2 Palpitations (principal); I48.91 Unspecified atrial fibrillation; I10 Essential (primary) hypertension; I49.3 Ventricular premature depolarization; I49.1 Atrial premature depolarization; Z90.710 Acquired absence of both cervix and uterus; Z90.49 Acquired absence of other specified parts of digestive tract; Z95.2 Presence of prosthetic heart valve; Z79.82 Long term (current) use of aspirin
CPT/HCPCS: 71045; 80048; 84484; 85025; 93005; 94760; 99282; A4216

== ENCOUNTER → 2024-09-25 | Outpatient (CLI) | payer MEDICARE, BC, SELFPAY ==
[2024-07-16 07:16] VITALS: BMI 27.6
--- NOTE | 2024-09-25 08:58 | RAD_ITS ---
PROCEDURE: THORACIC SPINE MIN 4 VIEWS 09/25/2024 REASON FOR EXAM: DEGENERATION OF THORACIC TECHNIQUE: THORACIC SPINE MIN 4 VIEWS COMPARISON: 12/17/2023. FINDINGS: Mild osteopenia. Mild S shaped scoliosis. Spinal stimulator device is noted with its tip at T8-T9. There are diffuse spondylotic changes. Findings are demonstrated to by diffuse disc space narrowing, osteophyte formation and degenerative endplate sclerosis. There is diffuse facet joint arthropathy with secondary bilateral neural foramina narrowing. No fracture or dislocation is seen. No aggressive lytic or blastic bony lesion is noted. RAD/Thoracic Spine Min 4 Views IMPRESSION: No evidence for acute abnormality. Mild osteopenia. Mild S shaped scoliosis. Spinal stimulator device is noted with its tip at T8-T9. [facility]
== END | disposition home or self-care (01) ==
LOC: MTRAD 08:56
PROVIDERS: PCP Family Medicine; Referring Provider Anesthesiology Pain Medicine; Visit Provider Anesthesiology Pain Medicine
DX: M51.34 Other intervertebral disc degeneration, thoracic region (principal)
CPT/HCPCS: 72074

== ENCOUNTER 2024-10-07 23:33 | Emergency (ER) | payer MEDICARE, BC, SELFPAY ==
[2024-07-16 07:16] VITALS: BMI 27.6
[2024-10-07 23:35] VITALS: BP 161/102; PULSE 87; RESP 16; TEMP 36; O2SAT 97
[2024-10-08 00:03] VITALS: BMI 28.1
--- OUTSIDE RECORDS SUMMARY | 2024-10-08 00:12 | XMS RPT_ITS | CCD ---
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 Davey Valente Primary Care Provider Dr. Davey Valente Referring Provider Dr. Chani Cervantes Attending Provider Dr. Julio Ochoa Attending Provider [phone] Davey Valente Primary Care Provider [phone] Dr. Davey Valente Referring Provider Dr. Davey Valente Primary Care Provider [phone] Dr. Davey Valente Referring Provider Dr. Julio Ochoa Attending Provider [phone] Chani Cervantes Attending Provider Dr. Davey Valente Primary Care Provider Dr. Davey Valente Referring Provider Dr. Julio Ochoa Attending Provider [phone] Unavailable Primary Care Provider Unavailphilipp Alejandro MD, Kenny S Unavailable Davey Valente DO Primary Care Provider Esme Arango MD Unavailable Herlinda Nesbitt MD Unavailable JEREMIAS TANNER Attending Unavailable JAVON, KENNY S Referring Unavailable DAVEY VALENTE Primary Care Unavailable Dr. Davey Valente DO Primary Care Provider Soraya Amador Attending Provider Soraya Amador Referring Provider Dr. Davey Valente DO Referring Provider Javon MENDOZA, Dr. Cox Attending Provider Dr. Kenny Alejandro MD Referring Provider Dr. Davey Valente DO Primary Care Provider Soraya Amador Attending Provider Soraya Amador Referring Provider Dr. Davey Valente DO Referring Provider Razia MENDOZA, Dr. Mansfield Attending Provider Razia MENDOZA, Dr. Mansfield Referring Provider Dr. Davey Valente DO Primary Care Provider Soraya Amador Attending Provider Soraya Amador Referring Provider Dr. Davey Valente DO Primary Care Provider Dr. Kenny Alejandro MD Attending Provider [phone] Dr. Kenny Alejandro MD Referring Provider Soraya Amador Attending Provider Dr. Davey Valente DO Referring Provider Vishal MENDOZA, Obi Emergency Provider GILLINOV, A Admitting Unavailable GILLINOV, A Attending Unavailable AMBROSIO, DAVEY A Primary Care Unavailable GILLINOV, A Referring Unavailable AMBROSIO, DAVEY A Primary Care Unavailable GILLINOV, A Referring Unavailable AMBROSIO, DAVEY A Primary Care Unavailable GILLINOV, A Referring Unavailable AMBROSIO, DAVEY A Primary Care Unavailable GILLINOV, A Referring Unavailable AMBROSIO, DAVEY A Primary Care Unavailable GILLINOV, A Referring Unavailable AMBROSIO, DAVEY A Primary Care Unavailable GILLINOV, A Referring Unavailable AMBROSIO, DAVEY A Primary Care Unavailable GILLINOV, A Attending Unavailable JUSTIN ALEJANDROL S Referring Unavailable AMBROSIO, DAVEY A Primary Care Unavailable RELLINOV, A Referring Unavailable AMBROSIO, DAVEY A Primary Care Unavailable HERLINDA NESBITT Attending Jessica ARANGO, A Referring Unavailable AMBROSIO, DAVEY A Primary Care Unavailable Obi Rodgers MD Attending Provider Dr. Mike Resendez MD Attending Provider Dr. Mike Resendez MD Referring Provider [phone] Javon, Kenny Attending Unavailable Ambrosio, Davey Primary Care Unavailable Javon, Gonzales Attending Unavailable Ambrosio, Davey Primary Care Unavailable Javon, Gonzales Referring Unavailable Javon, Gonzales Attending Unavailable Ambrosio, Davey Primary Care Unavailable Javon, Kenny Referring Unavailable Ambrosio, Davey Primary Care Unavailable Deedee CLAYTON, Soraya Mast Referring Unavail able Deedee CLAYTON, Soraya Mast Attending Unavail able Ambrosio, Davey Referring Unavailable Ambrosio, Davey Attending Unavailable Ambrosio, Davey Primary Care Unavailable Javon, Gonzales Attending Unavailable Ambrosio, Davey Primary Care Unavailable Javon, Gonzales Referring Unavailable Javon, Kenny Attending Unavailable Ambrosio, Davey Primary Care Unavailable Javon, Gonzales Referring Unavailable Ambrosio, Davey Primary Care Unavailable Timur Simpson Attending Unavailable Timur Simpson Referring Unavailable Ambrosio, Davey Primary Care Unavailable Javon, Gonzales Referring Unavailable Javon, Kenny Attending Unavailable Ambrosio, Davey Primary Care Unavailable Javon, Kenny Referring Unavailable Javon, Gonzales Attending Unavailable Ambrosio, Davey Primary Care Unavailable Deedee CLAYTON, Soraya M Referring Unavail able Deedee CLAYTON, Soraya M Attending Unavail able Ambrosio, Davey Primary Care Unavailable Deedee CLAYTON, Soraya M Attending Unavail able Deedee PA, Soarya M Referring Unavail able Ambrosio, Davey Primary Care Unavailable Obi Rodgers Attending Unavailable Ambrosio, Davey Primary Care Unavailable Shyla Randle Attending Unavailable LyndalankiShyla Referring Unavailable Ambrosio, Davey Primary Care Unavailable Javon, Gonzales Attending Unavailable Javon, Kenny Referring Unavailable Araceli Brothers Attending Unavailable Zev Araceli Referring Unavailable Ambrosio, Davey Primary Care Unavailable Ambrosio, Davey Referring Unavailable Ambrosio, Davey Primary Care Unavailable Javon, Kenny Attending Unavailable Ambrosio, Davey Referring Unavailable Ambrosio, Davey Primary Care Unavailable Soraya Amador Attending Unavail able Ambrosio, Davey Primary Care Unavailable Vellancinthya, Shyla Attending Unavailable Vellanki, Shyla Referring Unavailable Ambrosio, Davey Primary Care Unavailable Razia, Shyla Attending Unavailable Vellanki, Shyla Referring Unavailable Ambrosio, Davey Primary Care Unavailable Mike Resendez Attending Unavailable Mike Resendez Referring Unavailable Ambrosio, Davey Primary Care Unavailable Javon, Gonzales Referring Unavailable Javon, Gonzales Attending Unavailable Ambrosio, Davey Primary Care Unavailable Timur Simpson Consulting Unavailable Timur Simpson Attending Unavailable Timur Simpson Referring Unavailable Ambrosio, Davey Primary Care Unavailable Soraya Amador Attending Unavail able Soraya Amador Referring Unavail able Ambrosio, Davey Primary Care Unavailable Javon, Gonzales Attending Unavailable Ambrosio, Davey Primary Care Unavailable Ashlee Freeman Attending Unavailable Ambrosio, Davey Referring Unavailable Ambrosio, Davey Primary Care Unavailable Javon, Gonzales Attending Unavailable Ambrosio, Davey Referring Unavailable Ambrosio, Davey Primary Care Unavailable Soraya Amador Attending Unavail able Ambrosio, Davey Referring Unavailable Ambrosio, Davey Primary Care Unavailable Angie Molina Attending Unavailable Ambrosio, Davey Referring Unavailable Ambrosio, Davey Primary Care Unavailable Soraya Amador Attending Unavail able Ambrosio, Davey Referring Unavailable Ambrosio, Davey Primary Care Unavailable Timur Simpson Attending Unavailable Ambrosio, Davey Primary Care Unavailable Soraya Amador Attending Unavail able Soraya Amador Referring Unavail able Allergies Allergy Classification Reported Allergen(s) Allergy Type Date of Onset Reaction(s) Facility (20 sources) Codeine; Translations: [CODEINE] Drug Allergy 02-14-20 05 GI Upset [facility] (16 sources) Sulfonamides (Antibiotic); Translations: [SULFA (SULFONAMIDE ANTIBIOTICS)] Allergy to substance 01-06-20 22 vomitting, Itching [facility] (20 sources) methylPREDNISolone; Translations: [METHYLPREDNISOLONE] Drug Allergy 09-25-19 07 Itching [facility] Work Phone: (20 sources) oxyCODONE; Translations: [OXYCODONE] Drug Allergy 01-31-20 Other: See Comments [facility] (19 sources) Sulfonamides (Antibiotic) Drug Allergy 01-31-20 Hives [facility] (13 sources) Betamethasone; Translations: [BETAMETHASONE DIPROPIONATE] Drug Allergy 03-03-20 Itching [facility] (8 sources) Omeprazole Drug Allergy 05-14-19 Vomiting [facility] (1 source) Codeine Drug Allergy 09-18-19 [facility] Repository (1 source) methylPREDNISolone Drug Allergy 09-18-19 [facility] Repository (1 source) Omeprazole Drug Allergy 09-18-19 [facility] Repository (1 source) oxyCODONE Drug Allergy 09-18-19 [facility] Repository (1 source) Sulfonamides (Antibiotic) Drug allergy (disorder) 09-18-19 [facility] Repository Medications Current Medications Medication Drug Class(es) Dates Sig (Normalized) Sig (Original) acetaminophen 325 mg oral tablet (19 sources) Start: 03-31-2024 take 2 tablets by [...] aspirin 81 mg delayed release oral tablet (11 sources) Platelet Aggregation Inhibitor, Nonsteroidal Anti-inflammatory Drug [...] 06/22/2009 Active furosemide 20 mg oral tablet (3 sources) Loop Diuretic Start: 03-31-2024 take 1 tablet by mouth once daily furosemide (LASIX) 20 mg tablet Take 1 tablet by mouth once daily for 7 days. 7 tablet 03/31/2024 Active Gslkwbzn-Waisd-Bdll u-Cf Borate ([employer]) 750 mg-100 mg- 1.65 mg-108 mg tablet (16 sources) Start: 05-14-2024 take 1 tablet by mouth once daily Bzlsavuf-Regkn-Pimr u-Cf Borate ([employer]) 750 mg-100 mg- 1.65 mg-108 mg tablet Active 1 {tbl} PO DAILY May 14, 2024 1:00am Start: 05-14-2024 take 1 tablet by reed th once daily Zllgqeeo-Vtcsx-Zijwe-Cf Borate ([facility] [employer]) 750 mg-100 mg- 1.65 mg-108 mg tablet Active {tbl} PO DAILY May 14, 2024 1:00am Start: 01-02-2024 End: 04-10-2024 take 1 tablet by mouth once daily Vhsmqrcd-Jetqf-Oaxwm-Cf Borate ([facility]) 750 mg-100 mg- 1.65 mg-108 mg tablet Discontinued 1 {tbl} PO DAILY January 02, 2024 12:00am April 10, 2024 2:49pm mupirocin 0.02 mg/mg topical ointment (4 sources) RNA Synthetase Inhibitor Antibacterial Start: 03-04-2024 End: 03-31-2024 mupirocin (BACTROBAN) 2 % ointment Apply a small amount in each nostril using a cotton swab twice the day before surgery and once the morning of surgery. 22 g 03/04/2024 03/31/2024 Discontinued nebivolol 2.5 mg oral tablet (1 source) Start: 09-19-2024 take 1 tablet by mouth once daily Nebivolol 2.5 mg tablet Active 2.5 mg PO daily 08 03September 19, 2024 12:00am pantoprazole 20 mg delayed release oral tablet [...] / oxyCODONE hydrochloride 5 mg oral tablet (16 sources) Opioid Agonist Start: 06-09-2020 End: 06-09-2020 Oxycodone-Acetamino phen 1 TABLET tablet Discontinued 1 {tbl} PO EVERY 6 HOURS NEEDED as needed for Pain 12 3 June 09, 2020 June 06, 2020 1:00am June 09, 2020 11:59am Sciatica of left side Sciatica, left side Start: 06-09-2020 End: 06-09-2020 Oxycodone-Acetaminophen 1 TA [...] 11:59am amiodarone hydrochloride 200 mg oral tablet (11 sources) Antiarrhythmic Start: 04-10-2024 End: 05-14-2024 take [...] 03/31/2024 Active amLODIPine 2.5 mg oral tablet (8 sources) Dihydropyridine Calcium Channel Jw Start: 05-14-2024 End: 09-05-2024 take 1 tablet by mouth once daily Amlodipine (Norvasc) 2.5 mg tablet Discontinued 2.5 mg PO daily 08 03May 14, 2024 1:00am September 05, 2024 7:41am On Hold: low BP clobetasol propionate 0.0005 mg/mg topical ointment (19 sources) Corticosteroid Start: 06-09-2022 End: 04-10-2024 Clobetasol 0.05 % ointment Discontinued 1 NMA TOPICAL AT BEDTIME as needed for it January 02, 2024 1:02pm April 10, 2024 2:47pm apply thin layer; massage gently into affected area nightly x 6 weeks then 1-2x weekly cyclobenzaprine hydrochloride 10 mg oral tablet (16 sources) Muscle Relaxant Start: 06-09-2020 End: 06-18-2020 take 1 tablet by mouth three times daily as needed for pain Cyclobenzaprine 10 MG tablet Discontinued 10 mg PO 3 TIMES DAILY NEEDED as needed for muscle pain 20 0 June 09, 2020 1:00am June 18, 2020 5:26pm diazePAM 5 mg oral tablet (20 sources) Benzodiazepine Start: 12-14-2023 End: 01-24-2024 take [...] mg PO ONCE as needed for anxiety 1 0 March 20, 2022 1:00am June 08, 2022 1:34pm Claustrophobia Claustrophobia Take 1 tablet 30 minutes before MRI twice-daily diclofenac epolamine 0.013 mg/mg medicated patch (9 sources) Nonsteroidal Anti-inflammatory Drug Start: 07-13-2009 End: 03-03-2024 diclofenac epolamine(FLECTOR 1.3 % ADHESIVE PATCH) Indications: Hip pain Apply one patch twice daily 60 1 07/13/2009 03/03/2024 Discontinued doxycycline monohydrate 100 mg oral capsule (8 sources) Tetracycline-class Drug Start: 01-02-2024 End: 01-17-2024 take 1 capsule by mouth once daily Doxycycline Monohydrate 100 mg capsule Discontinued 100 mg PO daily January 02, 2024 12:00am January 17, 2024 7:14am estradiol 0.5 mg oral tablet (11 sources) Estrogen Start: 06-08-2022 End: 01-02-2024 take [...] PO THREE TIMES A DAY 89 30 0 June 04, 2020 1:00am July 03, 2020 12:00am July 04, 2020 12:03am Start: 07-27-2009 End: 03-03-2024 gabapentin(NEURONTIN 100 MG CAP) Take 1-2 capsules once daily 60 5 07/27/2009 03/03/2024 Discontinued hydroCHLOROthiazide 12.5 mg / lisinopril 20 mg oral tablet (8 sources) Thiazide Diuretic, Angiotensin Converting Enzyme Inhibitor Start: 12-14-2023 End: 01-02-2024 Lisinopril-Hydrochlorothiazi de 20-12.5 mg tablet Discontinued 0.5 {tbl} PO daily December 14, 2023 12:00am January 02, 2024 2:24pm hydroxychloroquine sulfate 200 mg oral tablet (14 sources) Antimalarial, Antirheumatic Agent Start: 01-05-2022 End: [...] 2020 1:05pm leflunomide 10 mg oral tablet (16 sources) Antirheumatic Agent Start: 06-06-2020 End: 01-05-2022 take 1 tablet by mouth once daily Leflunomide 10 MG tablet Discontinued 10 mg PO DAILY June 06, 2020 1:00am January 05, 2022 10:17am arthritis lisinopril 20 mg oral tablet (20 sources) Angiotensin Converting Enzyme Inhibitor Start: 01-02-2024 End: 04-10-2024 take 1 tablet by mouth once daily Lisinopril 20 mg tablet Discontinued 20 mg PO daily 90 3 January 02, 2024 12:00am April 10, 2024 2:47pm Start: 06-09-2020 End: 12-14-2023 take 1 tablet by mouth once daily Lisinopril 10 MG tablet Discontinued 10 mg PO DAILY 30 0 June 09, 2020 1:00am December 14, 2023 2:35pm magnesium oxide 400 mg oral capsule (20 sources) Start: 04-10-2024 End: 06-24-2024 take 1 capsule by mouth twice daily Magnesium Oxide 400 mg magnesium capsule Discontinued 400 mg PO TWICE A DAY 180 May 05, 2024 10:47am June 24, 2024 7:48am Start: 03-31-2024 take 1 tablet by reed twice daily magnesium oxide (MAG-OX) 400 mg (241.3 mg magnesium) tablet Take 1 tablet by mouth two times a day. 60 tablet 03/31/2024 Active 24 hr metoprolol succinate 50 mg extended release oral tablet (20 sources) beta-Adrenergic Jw Start: 09-05-2024 End: 09-17-2024 take 4 tablets by mouth once daily Metoprolol Succinate 50 mg tablet extended release 24 hr Discontinued 12.5 mg PO daily September 05, 2024 7:43am September 17, 2024 10:17pm Start: 06-24-2024 End: 09-05-2024 take 2 tablets by mouth once daily Metoprolol Succinate 50 mg tablet extended release 24 hr Discontinued 25 mg PO daily 180 3 June 24, 2024 7:47am September 05, 2024 7:43am Start: 03-31-2024 End: 06-24-2024 take 1 tablet by mouth twice daily Metoprolol Succinate 50 mg tablet extended release 24 hr Discontinued 50 mg PO TWICE A DAY 180 May 06, 2024 9:37am June 24, 2024 7:46am Start: 03-31-2024 End: 06-24-2024 take 2 tablets by mouth twice daily Metoprolol Succinate 50 mg tablet extended release 24 hr Discontinued 25 mg PO TWICE A DAY 180 3 June 24, 2024 7:46am June 24, 2024 7:48am naproxen sodium 220 mg oral tablet (16 sources) Nonsteroidal Anti-inflammatory Drug Start: 08-18-2013 End: [...] needed for Pain Score 4-10 10 5 0 January 28, 2024 February 11, 2024 9:50am Inguinal hernia Start: 06-09-2020 End: 06-12-2020 Oxycodone 5 MG tablet Discon tinued 5 - 10 mg PO EVERY 6 HOURS NEEDED as needed for Pain Score 6-10 20 3 0 June 09, 2020 June 11, 2020 1:00am June 12, 2020 1:04am Left lumbar radiculopathy Radiculopathy, lumbar region 5 to 10 mg every 6 as needed for pain. polyethylene glycol 3350 16944 mg powder for oral solution (16 sources) Osmotic Laxative Start: 06-09-2020 End: 01-05-2022 take 17 g by mouth once daily Polyethylene Glycol 3350 17 GM packet Discontinued 17 g PO DAILY 30 0 June 09, 2020 1:00am January 05, 2022 10:17am spironolactone 25 mg oral tablet (9 sources) Aldosterone Antagonist Start: 12-20-2010 End: 03-03-2024 take 1 tablet by mouth once daily spironolactone 25 mg ORAL tablet Indications: Essential hypertension, benign Take 1 tablet by mouth once daily. 90 tablet 3 12/20/2010 03/03/2024 Discontinued traMADol hydrochloride 50 mg oral tablet (16 sources) Opioid Agonist Start: 08-18-2013 End: 08-27-2013 [...] Problem Date Documented Date Episodic/Chronic Cardiac dysrhythmias (5 sources) Multiple premature ventricular complexes; Translations: [Ventricular premature depolarization] Onset: 05-14-1909-18-2024 Chronic Cardiac dysrhythmias (2 sources) Palpitations; Translations: [Palpitations] 09-18-2024 Episodic Conditions associated with dizziness or vertigo (8 sources) Vertigo; Translations: [Dizziness and giddiness] 12-14-2023 Episodic Disorders of lipid metabolism (20 sources) Mixed hypercholesterolemia and hypertriglyceridemia; Translations: [Mixed hyperlipidemia] Onset: 06-23-1906-22-2009 Chronic Esophageal disorders (20 sources) Gastroesophageal reflux disease; Translations: [Gastro-esophageal reflux disease without esophagitis] Onset: 03-09-2010-18-2023 Chronic Comment on above: FAIRLY CONTROLLED WI TH PROTONIX/MYLANTA PRN Essential hypertension (20 sources) Hypertensive disorder; Translations: [Essential (primary) hypertension] Onset: 03-09-2006-17-2020 Chronic Headache; including migraine (8 sources) Migraine variants; Translations: [Other migraine, not intractable, without status migrainosus] 12-14-2023 Chronic Heart valve disorders (20 sources) Mitral valve disorder; Translations: [Rheumatic mitral valve disease, unspecified] Onset: 08-11-19 Resolved : 08-11-1910-18-2023 Chronic Comment on above: LEAKY Heart valve disorders (9 sources) Heart murmur; Translations: [Cardiac murmur, unspecified] Onset: 07-11-19 25 12-14-2023 Episodic Malaise and fatigue (9 sources) Fatigue; Translations: [Other fatigue] Onset: 09-06-1906-06-2024 Episodic Menopausal disorders (18 sources) Atrophy of vagina; 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 continue fu PRN Nutritional deficiencies (8 sources) Vitamin D deficiency; Translations: [Vitamin D deficiency, unspecified] 01-24-2024 Chronic Comment on above: ON SUPPLEMENT Osteoarthritis (20 sources) Arthritis; Translations: [Unspecified osteoarthritis, unspecified site] Onset: 03-09-2006-17-2020 Chronic Other aftercare (1 source) Surgical follow-up; Translations: [Encounter for follow-up examination after completed treatment for conditions other than malignant neoplasm] 03-31-2024 Episodic Other diseases of bladder and urethra (8 sources) Overactive bladder; Translations: [Overactive bladder] 12-14-2023 Chronic Other endocrine disorders (8 sources) Hypoglycemia; Translations: [Hypoglycemia, unspecified] 12-14-2023 Chronic Other gastrointestinal disorders (20 sources) Irritable bowel syndrome; Translations: [Irritable bowel syndrome without diarrhea] Onset: 03-09-2010-18-2023 Chronic Other lower respiratory disease (9 sources) Dyspnea; Translations: [Shortness of breath] 02-26-2024 Episodic Other lower respiratory disease (2 sources) Shortness of breath; Translations: [Shortness of breath] Onset: 03-03-20 Episodic Other skin disorders (13 sources) Lichen sclerosus et atrophicus; 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 recommend clobetasol. improved with intervention, continue to monitor. Residual codes; unclassified (8 sources) Absent kidney; Translations: [Acquired absence of kidney] 12-14-2023 Episodic Residual codes; unclassified (20 sources) History of repair of mitral valve; Translations: [Other specified postprocedural states] 04-14-2024 Episodic Rheumatoid arthritis and related disease (1 source) Inflammatory polyarthropathy; Translations: [Inflammatory polyarthropathy] Onset: 09-05-19 Chronic Spondylosis; intervertebral disc disorders; other back problems (17 sources) Arthritis of facet joint of lumbar spine; Translations: [Spondylosis without myelopathy or radiculopathy, lumbar region] Onset: 10-04-1906-14-2022 Chronic Spondylosis; intervertebral disc disorders; other back [...] Complications of surgical procedures or medical care (20 sources) Atrial fibrillation; Translations: [Other postprocedural complications and disorders of the circulatory system, not elsewhere classified] Onset: 05-22-2024 04-10-2024 Episodic Diverticulosis and diverticulitis (20 sources) Diverticulosis of colon; Translations: [Diverticulosis of large intestine without perforation or abscess without bleeding] Onset: 06-26-2005 Resolved: 12-13-2006 10-18-2023 Chronic Fluid and electrolyte disorders (5 sources) Hypervolemia; Translations: [Fluid overload, unspecified] Onset: 03-26-2024 03-26-2024 Episodic Gastritis and duodenitis (20 sources) Acute gastritis; Translations: [Acute gastritis without bleeding] Onset: 07-13-2009 07-13-2009 Episodic Hemorrhoids (20 sources) Internal hemorrhoids; Translations: [Other hemorrhoids] Onset: 06-26-2005 Resolved: 12-13-2006 10-18-2023 Episodic Nonspecific chest pain (20 sources) Chest pain; Translations: [Chest pain, unspecified] Onset: 07-13-2009 07-13-2009 Episodic Other connective tissue disease (20 sources) Lateral epicondylitis; Translations: [Lateral epicondylitis, unspecified elbow] Onset: 07-12-2005 10-18-2023 Episodic Other connective tissue disease (20 sources) Plantar fascial fibromatosis; Translations: [Plantar fascial fibromatosis] Onset: 07-12-2005 10-18-2023 Episodic Other connective tissue disease (20 sources) Enthesopathy of ankle AND/OR tarsus; Translations: [Other enthesopathy of unspecified foot and ankle] Onset: 09-21-2006 10-18-2023 Episodic Other gastrointestinal disorders (20 sources) Diarrhea; Translations: [Diarrhea, unspecified] Onset: 06-26-2005 Resolved: 12-13-2006 10-18-2023 Episodic Other lower respiratory disease (1 source) Dyspnea, unspecified; Translations: [Dyspnea, unspecified] Onset: 01-02-2024 Episodic Other nervous system disorders (5 sources) Postoperative pain ; Translations: [Other acute postprocedural pain] Onset: 03-25-2024 03-26-2024 Episodic Residual codes; unclassified (5 sources) Transition of care; Translations: [Other specified health status] Onset: 03-29-2024 03-29-2024 Episodic Sprains and strains (20 sources) Sprain of ankle; Translations: [Sprain of unspecified ligament of unspecified ankle, initial encounter] Onset: 09-25-2006 10-18-2023 Episodic Syncope (20 sources) Syncope and collapse; Translations: [Syncope and collapse] Onset: 08-10-2005 Resolved: 01-11-2016 01-11-2016 Episodic Results Test Name Value Interpretation Reference Range Facility CNPTOUTREACHon 09-25-2024 CNPTOUTREACH Normal [facility] Thoracic Spine Min 4 Viewson 09-25-2024 Thoracic Spine Min 4 Views [facility] Imaging Services [address] [place], [place] [id number] Thoracic Spine Min 4 Views MR#: [id number] Acct: [id number] Name: HILDA MULLINS Rep #: [id number] : 1945 F 78 From: Vel[facility] tripp MD PCP: Dr. Davey Valente DO Status: REG CLI Study: Thoracic Spine Min 4 Views Date of Exam: 09/25 Exam# [id number] Ordering Dr: Mike Resendez MD PROCEDURE: THORACIC SPINE MIN 4 VIEWS 09/25/2024 REASON FOR EXAM: DEGENERATION OF THORACIC TECHNIQUE: THORACIC SPINE MIN 4 VIEWS COMPARISON: 12/17/2023. FINDINGS: Mild osteopenia. Mild S shaped scoliosis. Spinal stimulator device is noted with its tip at T8-T9. There are diffuse spondylotic changes. Findings are demonstrated to by diffuse disc space narrowing, osteophyte formation and degenerative endplate sclerosis. There is diffuse facet joint arthropathy with secondary bilateral neural foramina narrowing. No fracture or dislocation is seen. No aggressive lytic or blastic bony lesion is noted. RAD/Thoracic Spine Min 4 Views IMPRESSION: No evidence for acute abnormality. Mild osteopenia. Mild S shaped scoliosis. Spinal stimulator device is noted with its tip at T8-T9. [facility] CC: Dr. Mike Resendez MD; Dr. Davey Valente DO Science Interpreter: Signed [facility] Center L499.0042on 09-18-2024 Trop T High Sen 10 ng/L Normal <=14 [facility] Comment on above: Performed By: #### L 501.9520, L500.2500, L100.0100 #### [facility] Laboratory [address] [place], [address] L499.0043on 09-18-2024 Trop T High Sen Normal <=14 [facility] Comment on above: Result Comment: Canc elled via OM: Order cancelled - Patient discharged Performed By: #### L 499.0043 #### [facility] Laboratory [address] [place], [address] 12 Lead EKGon 09-17-2024 12 Lead EKG [facility] Cardiovascular Services [address] [place] [address] 12 Lead EKG 09/17/24 2152 MR#: [id number] Acct: [id number] Name: HILDA MULLINS Rep #: [id number] : 1945 78 From: Paco Albright MD Attending Dr: Status: DEP ER Ordering Dr: Obi Rodgers MD Date: 09/17/24 Location: ED Sex: F C Admitted: Test Reason : SOB Blood Pressure : */* mmHG Vent. Rate : 90 BPM Atrial Rate : 90 BPM P-R Int : 106 ms QRS Dur : 76 ms QT Int : 380 ms P-R-T Axes : 45 -9 43 degrees QTcB Int : 464 ms Sinus rhythm with short KS with Premature supraventricular complexes and with frequent Premature ventricular complexes Possible Left atrial enlargement Borderline ECG Confirmed by Paco Albright ([id number]), non linear editor ANGIE GOEL ([id number]) on 09/18/2024 10:19:02 AM Referred By: Confirmed By: Paco Albright 09/18/24 1019 Date Paco Albright MD CC: Dr. Obi Rodgers MD; Dr. Davey Valente DO Signed Normal [facility] Absolute lymphocyte countOrd ered By: ED PROVIDER on 09-17-2024 Lymphocytes Auto (Unsp spec) [#/Vol] 1.99 10*3/uL 0.83-4.51 [facility] Absolute neutrophil countOrd ered By: ED PROVIDER on 09-17-2024 Neutrophils (Bld) [#/Vol] 7.1 10*3/uL 2.0-7.7 [facility] Anion gap in Serum or Plasma Ordered By: Obi Rodgers on 09-17-2024 Anion gap [Moles/Vol] 12 mmol/L 5-15 [facility] Automated lymphocyte count a s percentage of total leukocytesOrdered By: ED PROVIDER on 09-17-2024 Lymphocytes/100 WBC Auto (Unsp spec) 19.8 % [facility] BUN/creatinine ratioOrdered By: Obi Rodgers on 09-17-2024 Urea nitrogen/Creatinine [Mass ratio] 16.8 mg/mg - [facility] Basic Metabolic Profile (BMP )on 09-17-2024 BUN/CRE 16.8 RATIO Normal - [facility] Comment on above: Performed By: #### L 500.2500, L100.0100 #### [facility] Laboratory [address] [place], [address] Calcium [Mass/Vol] 9.6 mg/dL Normal 7.6-11.0 [facility] Comment on above: Performed By: #### L 500.2500, L100.0100 #### [facility] Laboratory [address] [place], [address] Chloride [Moles/Vol] 104 mmol/L Normal 98-108 [facility] Comment on above: Performed By: #### L 500.2500, L100.0100 #### [facility] Laboratory [address] [place], [address] CO2 [Moles/Vol] 23.6 mmol/L Normal 21.0-32.0 [facility] Comment on above: Performed By: #### L 500.2500, L100.0100 #### [facility] Laboratory [address] [place], [address] Creatinine [Mass/Vol] 1.35 mg/dL High 0.70-1.20 [facility] Comment on above: Performed By: #### L 500.2500, L100.0100 #### [facility] Laboratory [address] [place], [address] ECRCL 30.59 ml/min Low 50-250 [facility] Comment on above: Performed By: #### L 500.2500, L100.0100 #### [facility] Laboratory [address] [place], [address] GAP 12 Normal 5-15 [facility] Comment on above: Performed By: #### L 500.2500, L100.0100 #### [facility] Laboratory [address] [place], [address] GFR/1.73 sq M.predicted among non-blacks MDRD (S/P/Bld) [Vol rate/Area] 40 mL/min/{1.73_m2} Low >60 [facility] Comment on above: Result Comment: mL/m in/1.73m2 CKD-EPI Creatinine Equation (2020) Performed By: #### L 500.2500, L100.0100 #### [facility] Laboratory [address] [place], [address] Glucose [Mass/Vol] 106 mg/dL High 70-99 [facility] Comment on above: Performed By: #### L 500.2500, L100.0100 #### [facility] Laboratory [address] [place], [address] Potassium [Moles/Vol] 3.9 mmol/L Normal 3.3-5.1 [facility] Comment on above: Performed By: #### L 500.2500, L100.0100 #### [facility] Laboratory [address] [place], [address] Sodium [Moles/Vol] 140 mmol/L Normal 133-145 [facility] Comment on above: Performed By: #### L 500.2500, L100.0100 #### [facility] Laboratory [address] [place], [address] Urea nitrogen [Mass/Vol] 23 mg/dL High 4-19 [facility] Comment on above: Performed By: #### L 500.2500, L100.0100 #### [facility] Laboratory [address] [place], [address] Basophil percentageOrdered B y: ED PROVIDER on 09-17-2024 Basophils/100 WBC (Bld) 0.5 % 0-1 [facility] CBC W/Diff, Automatedon 09-07-2024 Absolute Lymph 1.99 X10 3/uL Normal 0.83-4.51 [facility] Comment on above: Performed By: #### L 500.2500, L100.0100 #### [facility] Laboratory [address] [place], [address] Absolute Neut 7.1 X10 3/uL Normal 2.0-7.7 [facility] Comment on above: Performed By: #### L 500.2500, L100.0100 #### [facility] Laboratory [address] [place], [address] Basophils/100 WBC (Bld) 0.5 % Normal 0-1 [facility] Comment on above: Performed By: #### L 500.2500, L100.0100 #### [facility] Laboratory [address] [place], [address] Eosinophils/100 WBC (Bld) 1.4 % Normal 0-5 [facility] Comment on above: Performed By: #### L 500.2500, L100.0100 #### [facility] Laboratory [address] [place], [address] Erythrocyte distribution width (RBC) [Ratio] 15.7 % High 11.6-14.6 [facility] Comment on above: Performed By: #### L 500.2500, L100.0100 #### [facility] Laboratory [address] [place], [address] Hematocrit (Bld) [Volume fraction] 38.8 % Normal 37-47 [facility] Comment on above: Performed By: #### L 500.2500, L100.0100 #### [facility] Laboratory [address] [place], [address] Hemoglobin (Bld) [Mass/Vol] 12.2 g/dL Normal 12.0-15.0 [facility] Comment on above: Performed By: #### L 500.2500, L100.0100 #### [facility] Laboratory [address] [place], [address] IG% 0.200 Normal 0.0-0.9 [facility] Comment on above: Result Comment: IG% - Immature Granulocytes (promyelocytes, myelocytes and metamyelocytes) > 1% indicates that a LEFT SHIFT is Present. Performed By: #### L 500.2500, L100.0100 #### [facility] Laboratory [address] [place], [address] Lymphocytes/100 WBC (Bld) 19.8 % Normal 19-41 [facility] Comment on above: Performed By: #### L 500.2500, L100.0100 #### [facility] Laboratory [address] [place], [address] MCH (RBC) [Entitic mass] 27.7 pg Normal 27.0-32.0 [facility] Comment on above: Performed By: #### L 500.2500, L100.0100 #### [facility] Laboratory [address] [place], [address] MCHC (RBC) [Mass/Vol] 31.4 g/dL Low 32-36 [facility] Comment on above: Performed By: #### L 500.2500, L100.0100 #### [facility] Laboratory [address] [place], [address] MCV (RBC) [Entitic vol] 88.0 fL Normal 81-99 [facility] Comment on above: Performed By: #### L 500.2500, L100.0100 #### [facility] Laboratory [address] [place], [address] Monocytes/100 WBC (Bld) 7.7 % Normal 0-10 [facility] Comment on above: Performed By: #### L 500.2500, L100.0100 #### [facility] Laboratory [address] [place], [address] Neutrophils/100 WBC (Bld) 70.4 % High 47-70 [facility] Comment on above: Performed By: #### L 500.2500, L100.0100 #### [facility] Laboratory [address] [place], [address] Nucleated RBC (Bld) [#/Vol] 0 10*3/uL Normal 0-5 [facility] Comment on above: Performed By: #### L 500.2500, L100.0100 #### [facility] Laboratory [address] [place], [address] Platelet mean volume (Bld) [Entitic vol] 11.8 fL Normal 6.2-12.0 [facility] Comment on above: Performed By: #### L 500.2500, L100.0100 #### [facility] Laboratory [address] [place], [address] Platelets (Bld) [#/Vol] 272 10*3/uL Normal 150-450 [facility] Comment on above: Performed By: #### L 500.2500, L100.0100 #### [facility] Laboratory [address] [place], [address] RBC (Bld) [#/Vol] 4.41 10*6/uL Normal 4.2-5.4 [facility] Comment on above: Performed By: #### L 500.2500, L100.0100 #### [facility] Laboratory [address] [place], [address] RDW SD 50.9 fl High 35.1-43.9 [facility] Comment on above: Performed By: #### L 500.2500, L100.0100 #### [facility] Laboratory [address] [place], [address] WBC (Bld) [#/Vol] 10.0 10*3/uL Normal 4.4-11.0 [facility] Comment on above: Performed By: #### L 500.2500, L100.0100 #### [facility] Laboratory [address] [place], [address] Carbon dioxide, total [Moles /volume] in Central venous bloodOrdered By: Obi Rodgers on 09-17-2024 CO2 [Moles/Vol] 23.6 mmol/L 21.0-32.0 [facility] Chest 1 View (Portable)on Chest 1 View (Portable) [facility] Imaging Services [address] [place] [address] Chest 1 View (Portable) MR#: [id number] Acct: [id number] Name: HILDA MULLINS Rep #: [id number] : 1945 F 78 From: Jc Dubose MD PCP: Dr. Davey Valente, DO Status: [facility] ER Study: Chest 1 View (Portable) Date of Exam: 09/17/24 Exam# [id number] Ordering Dr: Obi Rodgers MD PROCEDURE: CHEST 1 VIEW (PORTABLE) 09/17/2024 REASON FOR EXAM: SHORTNESS OF BREATH TECHNIQUE: Frontal view of the chest. COMPARISON: 04/12/2024. FINDINGS: Prior sternotomy. Spinal stimulator is present. The heart is normal in size. The lungs are clear. No acute osseous abnormalities. RAD/Chest 1 View (Portable) IMPRESSION: No Acute Findings. Reading Location: [id number] CC: Dr. Obi Rodgers MD; Dr. Davey Valente DO Science Interpreter: Signed Normal [facility] Chloride assayOrdered By: Jaleel Rodgers on 09-17-2024 Chloride [Moles/Vol] 104 mmol/L 98-108 [facility] Emergency Department Summary on 09-17-2024 Emergency Department Summary [facility] Medical Records Department [address] [place] [address] Emergency Department Summary 09/17/24 MR#: [id number] Acct: [id number] Name: HILDA MULLINS Rep #: [id number] : 1945 78 From: Obi Rodgers MD PCP: Dr. Davey Valente DO Status:REG ER Location: ED HPI History of Present Illness Chief Complaint: Shortness of Breath Narrative Narrative: 78-year-old female past medical history of mitral valve repair proximately 6 months ago, presents today with shortness of breath that she has had intermittently over the last few weeks. She and her family state that she has been having episodes of atrial fibrillation after her surgery. She was sent home on amiodarone and metoprolol. About a week ago, her account receivable clerk Dr. Alejandro stopped the metoprolol. She states that she can feel her heart skipping a beat and she is short of breath. No recent fevers or chills, no cough, no leg swelling. She states that she was concerned that she was in atrial fibrillation. She currently does not take a blood thinner such as Xarelto or Eliquis but does take aspirin. [facility] Medical History Postoperative atrial fibrillation Wears hearing [...] Cardiac murmur Syncope and collapse Hypertension Arthritis Home Medications ???Medication ???Instructions ???Recorded ???Last Taken ???Type pantoprazole 20 mg tablet,delayed 20 mg PO DAILY 01/05/22 01/27/24 History release (Protonix) aspirin 81 mg tablet,delayed 81 mg PO QDAY 04/10/24 Unknown His tory release (Adult Low Dose Aspirin) cholecalciferol (vitamin D3) 25 25 mcg PO QDAY 05/14/24 Unknown Hi story mcg (1,000 unit) capsule glucosam 750 mg-chondroi 100 1 tab PO DAILY 05/14/24 Unknown Hi story mg-hyalur 1.65 mg-CF borate 108 mg tablet ([employer]) Allergy/AdvReac Type Severity Reaction Status Date / Time oxycodone Allergy Severe Nausea Verified 09/17/24 21:44 omeprazole Allergy Intermediate Vomiting Verified 09/17/24 21:44 Sulfa (Sulfonamide Allergy Mild Itching Verified 09/17/24 21:44 Antibiotics) codeine Allergy Vomiting Verified 09/17/24 21:44 methylprednisolone (From AdvReac Severe Itching Verified 09/17/24 21:44 Medrol) Family History Aunt Breast cancer Mother Pancreatic cancer Brother Pancreatic cancer Cancer of blood vessel Surgical History S/P mitral valve repair S/P inguinal hernia repair History of cardiac catheterization Hx of right cataract extraction Hx of left cataract extraction History of esophagogastroduodenoscopy (EGD) Hx of colonoscopy History of back surgery Hx of cholecystectomy Total knee replacement status History of hysterectomy History of kidney surgery Social History Smoking Status: Never smoker alcohol intake: never substance use type: does not use what type of physical activity do you participate in: walking seatbelt use: always do you feel safe at home: Yes additional social history: patient is retired from [employer] after 41 years [employer]- works at [employer] ED ROS Narrative Review of systems positive for heart palpitations and shortness of breath. No fevers or chills, no nausea or vomiting, no leg swelling. Denies other symptoms. No true exacerbating or alleviating factors. EXAM Physical Exam Narrative Exam Narrative: Afebrile. Vital signs noted. Nontoxic-appearing. Cardiovascular examination reveals a regular rate but irregular rhythm. Lungs are clear to auscultation bilaterally. Abdomen is soft and nontender with normal active bowel sounds. No guarding or rebound. Neurological examination nonfocal, nonlateralizing. No noted pedal edema. Const Vital Signs: 09/17/24 21:44 09/17/24 21:48 09/17/24 22:16 Temperature 97.3 F L Temperature Source Temporal Pulse Rate 97 Respiratory Rate 18 Respiratory Effort Blood Pressure 166/88 H Blood Pressure Mean 114 Pulse Ox 97 97 Oxygen Delivery Method Room Air Room Air 09/17/24 22:19 09/17/24 23 (more content not included)... Normal [facility] Eosinophil percentageOrdered By: ED PROVIDER on 09-17-2024 Eosinophils/100 WBC (Bld) 1.4 % 0-5 [facility] Erythrocyte distribution wid th ratioOrdered By: ED PROVIDER on 09-17-2024 Erythrocyte distribution width (RBC) [Ratio] 15.7 % High 11.6-14.6 [facility] Erythrocyte distribution wid th standard deviationOrdered By: ED PROVIDER on 09-17-2024 Erythrocyte distribution width (RBC) [Ratio] 50.9 fl High 35.1-43.9 [facility] Glomerular filtration rate ( GFR) estimation/1.73 sq m using serum, plasma, or whole bOrdered By: Obi Rodgers on 09-17-2024 GFR/1.73 sq M.predicted among non-blacks MDRD (S/P/Bld) [Vol rate/Area] 40 mL/min/{1.73_m2} Low >60 [facility] Comment on above: mL/min/1.73m2 CKD-EP I Creatinine Equation (2020) Hematocrit Auto (Bld) [Volum e fraction]Ordered By: ED PROVIDER on 09-17-2024 Hematocrit (Bld) [Volume fraction] 38.8 % 37-47 [facility] Hemoglobin measurementOrdere d By: ED PROVIDER on 09-17-2024 Hemoglobin (Bld) [Mass/Vol] 12.2 g/dL 12.0-15.0 [facility] Immature granulocytes/100 WB C Auto (Bld)Ordered By: ED PROVIDER on 09-17-2024 Immature granulocytes/100 WBC (Bld) 0.200 % 0.0-0.9 [facility] Comment on above: IG% - Immature Granu locytes (promyelocytes, myelocytes and metamyelocytes) > 1% indicates that a LEFT SHIFT is Present. L501.4021on 09-17-2024 Trop T High Sen 10 ng/L Normal <=14 [facility] Comment on above: Performed By: #### L 501.4027 #### [facility] Laboratory [address] [place], [address] MCV (mean corpuscular volume ) determinationOrdered By: ED PROVIDER on 09-17-2024 MCV (RBC) [Entitic vol] 88.0 fL 81-99 [facility] Mean corpuscular hemoglobin (MCH) determinationOrdered By: ED PROVIDER on 09-17-2024 MCH (RBC) [Entitic mass] 27.7 pg 27.0-32.0 [facility] Mean corpuscular hemoglobin concentration (MCHC) determinationOrdered By: ED PROVIDER on 09-17-2024 MCHC (RBC) [Mass/Vol] 31.4 g/dL Low 32-36 [facility] Mean platelet volume determi nationOrdered By: ED PROVIDER on 09-17-2024 Platelet mean volume (Bld) [Entitic vol] 11.8 fL 6.2-12.0 [facility] Monocyte percentageOrdered B y: ED PROVIDER on 09-17-2024 Monocytes/100 WBC (Bld) 7.7 % 0-10 [facility] Neutrophil percentageOrdered By: ED PROVIDER on 09-17-2024 Neutrophils/100 WBC (Bld) 70.4 % High 47-70 [facility] Nucleated red blood cell per centageOrdered By: ED PROVIDER on 09-17-2024 Nucleated RBC/100 WBC (Bld) [Ratio] 0 % 0-5 [facility] Platelet countOrdered By: ED PROVIDER on 09-17-2024 Platelets (Bld) [#/Vol] 272 10*3/uL 150-450 [facility] Potassium measurement (mass/ volume)Ordered By: Obi Rodgers on 09-17-2024 Potassium (Unsp spec) [Mass/Vol] 3.9 mmol/L 3.3-5.1 [facility] RBC Auto (Bld) [#/Vol]Ordere d By: ED PROVIDER on 09-17-2024 RBC (Bld) [#/Vol] 4.41 10*6/uL 4.2-5.4 [facility] Serum creatinine measurement (mass/volume)Ordered By: Obi Rodgers on 09-17-2024 Creatinine [Mass/Vol] 1.35 mg/dL High 0.70-1.20 [facility] Serum glucose measurement (m ass/volume)Ordered By: Obi Rodgers on 09-17-2024 Glucose [Mass/Vol] 106 mg/dL High 70-99 [facility] Serum or plasma calcium mariely urement (mass/volume)Ordered By: Obi Rodgers on 09-17-2024 Calcium [Mass/Vol] 9.6 mg/dL 7.6-11.0 [facility] Serum or plasma urea nitroge n measurement (mass/volume)Ordered By: Obi Rodgers on 09-17-2024 Urea nitrogen [Mass/Vol] 23 mg/dL High 4-19 [facility] Sodium levelOrdered By: Obi Rodgers on 09-17-2024 Sodium [Moles/Vol] 140 mmol/L 133-145 [facility] Troponin T.cardiac [Mass/vol ume] in Serum or Plasma by High sensitivity methodOrdered By: Obi Rodgers on 09-17-2024 Troponin T.cardiac High sensitivity method [Mass/Vol] 10 ng/L <14 [facility] Troponin T.cardiac High sensitivity method [Mass/Vol] 10 ng/L <14 [facility] White blood cell (WBC) count Ordered By: ED PROVIDER on 09-17-2024 WBC (Bld) [#/Vol] 10.0 10*3/uL 4.4-11.0 [facility] Cardiology Visit Reporton Cardiology Visit Report [facility] [address] [place], [place] [address]. [address] [place], [place] [address] OFFICE VISIT Date of Service: 09/05/24 MR#: [id number] Acct: [id number] Name: HILDA MULLINS Rep #: [id number] : 1945 Provider: MATILDE Chen Age/Sex: 78/F Location: [facility] Status: Signed HPI HPI History of [...] mitral valve prolapse. She was referred to [facility] for mitral valve repair. Patient did undergo a mitral valve repair on March 24, 2024 at [facility]. 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 Normal [facility] Absolute lymphocyte countOrd ered By: Shyla Randle on 08-29-2024 Lymphocytes Auto (Unsp spec) [#/Vol] 1.88 10*3/uL 0.83-4.51 [facility] Absolute neutrophil countOrd ered By: Shyla Randle on 08-29-2024 Neutrophils (Bld) [#/Vol] 7.2 10*3/uL 2.0-7.7 [facility] Anion gap in Serum or Plasma Ordered By: Shylalisa Randle on 08-29-2024 Anion gap [Moles/Vol] 13 mmol/L 5-15 [facility] Automated lymphocyte count a s percentage of total leukocytesOrdered By: Shyla Randle on 08-29-2024 Lymphocytes/100 WBC Auto (Unsp spec) 18.7 % Low 19-41 [facility] BUN/creatinine ratioOrdered By: [facility] Razia on 08-29-2024 Urea nitrogen/Creatinine [Mass ratio] 21.8 mg/mg High 10-20 [facility] Basophil percentageOrdered B y: Shyla Randle on 08-29-2024 Basophils/100 WBC (Bld) 0.7 % 0-1 [facility] Bilirubin, totalOrdered By: Shylalisa Randle on 08-29-2024 Bilirubin [Mass/Vol] 0.45 mg/dL 0.00-1.30 [facility] CBC W/Diff, Automatedon 08-08 Absolute Lymph 1.88 X10 3/uL Normal 0.83-4.51 [facility] Comment on above: Performed By: #### L 100.0100, L501.6710, L500.4050, L101.9900 ####[facility] [id number] [place], [place], [address] Absolute Neut 7.2 X10 3/uL Normal 2.0-7.7 [facility] Comment on above: Performed By: #### L 100.0100, L501.6710, L500.4050, L101.9900 ####[facility] [address] [place], [address] Basophils/100 WBC (Bld) 0.7 % Normal 0-1 [facility] Comment on above: Performed By: #### L 100.0100, L501.6710, L500.4050, L101.9900 ####[facility] [address] [place], [address] Eosinophils/100 WBC (Bld) 1.3 % Normal 0-5 [facility] Comment on above: Performed By: #### L 100.0100, L501.6710, L500.4050, L101.9900 ####[facility] [address] [place], [address] Erythrocyte distribution width (RBC) [Ratio] 15.9 % High 11.6-14.6 [facility] Comment on above: Performed By: #### L 100.0100, L501.6710, L500.4050, L101.9900 ####[facility] [address] [place], [address] Hematocrit (Bld) [Volume fraction] 41.5 % Normal 37-47 [facility] Comment on above: Performed By: #### L 100.0100, L501.6710, L500.4050, L101.9900 ####[facility] [address] [place], [address] Hemoglobin (Bld) [Mass/Vol] 12.8 g/dL Normal 12.0-15.0 [facility] Comment on above: Performed By: #### L 100.0100, L501.6710, L500.4050, L101.9900 ####[facility] [address] [place], [address] IG% 0.400 Normal 0.0-0.9 [facility] Comment on above: Result Comment: IG% - Immature Granulocytes (promyelocytes, myelocytes and metamyelocytes) > 1% indicates that a LEFT SHIFT is Present. Performed By: #### L 100.0100, L501.6710, L500.4050, L101.9900 ####[facility] [address] [place], [address] Lymphocytes/100 WBC (Bld) 18.7 % Low 19-41 [facility] Comment on above: Performed By: #### L 100.0100, L501.6710, L500.4050, L101.9900 ####[facility] [address] [place], [address] MCH (RBC) [Entitic mass] 27.7 pg Normal 27.0-32.0 [facility] Comment on above: Performed By: #### L 100.0100, L501.6710, L500.4050, L101.9900 ####[facility] [address] [place], [address] MCHC (RBC) [Mass/Vol] 30.8 g/dL Low 32-36 [facility] Comment on above: Performed By: #### L 100.0100, L501.6710, L500.4050, L101.9900 ####[facility] [address] [place], [address] MCV (RBC) [Entitic vol] 89.8 fL Normal 81-99 [facility] Comment on above: Performed By: #### L 100.0100, L501.6710, L500.4050, L101.9900 ####[facility] [address] [place], [address] Monocytes/100 WBC (Bld) 7.7 % Normal 0-10 [facility] Comment on above: Performed By: #### L 100.0100, L501.6710, L500.4050, L101.9900 ####[facility] [address] [place], [address] Neutrophils/100 WBC (Bld) 71.2 % High 47-70 [facility] Comment on above: Performed By: #### L 100.0100, L501.6710, L500.4050, L101.9900 ####[facility] [address] [place], [address] Nucleated RBC (Bld) [#/Vol] 0 10*3/uL Normal 0-5 [facility] Comment on above: Performed By: #### L 100.0100, L501.6710, L500.4050, L101.9900 ####[facility] [address] [place], [address] Platelet mean volume (Bld) [Entitic vol] 13.4 fL High 6.2-12.0 [facility] Comment on above: Performed By: #### L 100.0100, L501.6710, L500.4050, L101.9900 ####[facility] [address] [place], [address] Platelets (Bld) [#/Vol] 226 10*3/uL Normal 150-450 [facility] Comment on above: Performed By: #### L 100.0100, L501.6710, L500.4050, L101.9900 ####[facility] [address] [place], [address] RBC (Bld) [#/Vol] 4.62 10*6/uL Normal 4.2-5.4 [facility] Comment on above: Performed By: #### L 100.0100, L501.6710, L500.4050, L101.9900 ####[facility] [address] [place], [address] RDW SD 53.0 fl High 35.1-43.9 [facility] Comment on above: Performed By: #### L 100.0100, L501.6710, L500.4050, L101.9900 ####[facility] [address] [place], [address] WBC (Bld) [#/Vol] 10.0 10*3/uL Normal 4.4-11.0 [facility] Comment on above: Performed By: #### L 100.0100, L501.6710, L500.4050, L101.9900 ####[facility] [address] [place], [address] CRPon 08-29-2024 C-REACTIVE PROT 3.86 mg/L High 0.0-3.0 [facility] Comment on above: Performed By: #### L 100.0100, L501.6710, L500.4050, L101.9900 ####[facility] [address] [place], [address] Carbon dioxide, total [Moles /volume] in Central venous bloodOrdered By: Shyla Randle on 08-29-2024 CO2 [Moles/Vol] 23.8 mmol/L 21.0-32.0 [facility] Chloride assayOrdered By: Matilde Randle on 08-29-2024 Chloride [Moles/Vol] 104 mmol/L 98-108 [facility] Comprehensive Metabolic Prof ilon 08-29-2024 Albumin [Mass/Vol] 4.2 g/dL Normal 3.4-4.8 [facility] Comment on above: Performed By: #### L 100.0100, L501.6710, L500.4050, L101.9900 ####[facility] [address] [place], [address] Albumin/Globulin [Mass ratio] 1.4 {ratio} Normal 0.9-2.4 [facility] Comment on above: Performed By: #### L 100.0100, L501.6710, L500.4050, L101.9900 ####[facility] [address] [place], [address] ALK PHOS 77 U/L Normal 35-104 [facility] Comment on above: Performed By: #### L 100.0100, L501.6710, L500.4050, L101.9900 ####[facility] [address] [place], [address] ALT [Catalytic activity/Vol] 9 U/L Normal <=34 [facility] Comment on above: Performed By: #### L 100.0100, L501.6710, L500.4050, L101.9900 ####[facility] [address] [place], [address] AST [Catalytic activity/Vol] 24 U/L Normal <=31 [facility] Comment on above: Performed By: #### L 100.0100, L501.6710, L500.4050, L101.9900 ####[facility] [address] [place], [address] Bilirubin [Mass/Vol] 0.45 mg/dL Normal 0.00-1.30 [facility] Comment on above: Performed By: #### L 100.0100, L501.6710, L500.4050, L101.9900 ####[facility] [address] [place], [address] BUN/CRE 21.8 RATIO High 10-20 [facility] Comment on above: Performed By: #### L 100.0100, L501.6710, L500.4050, L101.9900 ####[facility] [address] [place], [address] Calcium [Mass/Vol] 9.8 mg/dL Normal 7.6-11.0 [facility] Comment on above: Performed By: #### L 100.0100, L501.6710, L500.4050, L101.9900 ####[facility] [address] [place], [address] Chloride [Moles/Vol] 104 mmol/L Normal 98-108 [facility] Comment on above: Performed By: #### L 100.0100, L501.6710, L500.4050, L101.9900 ####[facility] [address] [place], [address] CO2 [Moles/Vol] 23.8 mmol/L Normal 21.0-32.0 [facility] Comment on above: Performed By: #### L 100.0100, L501.6710, L500.4050, L101.9900 ####[facility] [address] [place], [address] Creatinine [Mass/Vol] 1.17 mg/dL Normal 0.70-1.20 [facility] Comment on above: Performed By: #### L 100.0100, L501.6710, L500.4050, L101.9900 ####[facility] [address] [place], [address] GAP 13 Normal 5-15 [facility] Comment on above: Performed By: #### L 100.0100, L501.6710, L500.4050, L101.9900 ####[facility] [address] [place], [address] GFR/1.73 sq M.predicted among non-blacks MDRD (S/P/Bld) [Vol rate/Area] 47 mL/min/{1.73_m2} Low >60 [facility] Comment on above: Result Comment: mL/m in/1.73m2 CKD-EPI Creatinine Equation (2020) Performed By: #### L 100.0100, L501.6710, L500.4050, L101.9900 ####[facility] [address] [place], [address] Globulin (S) [Mass/Vol] 3.1 g/dL Normal 2.2-4.2 [facility] Comment on above: Performed By: #### L 100.0100, L501.6710, L500.4050, L101.9900 ####[facility] [address] [place], [address] Glucose [Mass/Vol] 105 mg/dL High 70-99 [facility] Comment on above: Performed By: #### L 100.0100, L501.6710, L500.4050, L101.9900 ####[facility] [address] [place], [address] Potassium [Moles/Vol] 4.3 mmol/L Normal 3.3-5.1 [facility] Comment on above: Performed By: #### L 100.0100, L501.6710, L500.4050, L101.9900 ####[facility] [address] [place], [address] Sodium [Moles/Vol] 140 mmol/L Normal 133-145 [facility] Comment on above: Performed By: #### L 100.0100, L501.6710, L500.4050, L101.9900 ####[facility] [address] [place], [address] T PROT 7.4 g/dL Normal 5.9-8.4 [facility] Comment on above: Performed By: #### L 100.0100, L501.6710, L500.4050, L101.9900 ####[facility] [address] [place], [address] Urea nitrogen [Mass/Vol] 26 mg/dL High 4-19 [facility] Comment on above: Performed By: #### L 100.0100, L501.6710, L500.4050, L101.9900 ####[facility] [address] [place], [address] Eosinophil percentageOrdered By: Shyla Randle on 08-29-2024 Eosinophils/100 WBC (Bld) 1.3 % 0-5 [facility] Erythrocyte Sed Rateon 08-29 SED RATE 27 mm/hr Normal 0-30 [facility] Comment on above: Performed By: #### L 100.0100, L501.6710, L500.4050, L101.9900 ####[facility] [address] [place], [place], [address] Erythrocyte distribution wid th ratioOrdered By: Shyla Randle on 08-29-2024 Erythrocyte distribution width (RBC) [Ratio] 15.9 % High 11.6-14.6 [facility] Erythrocyte distribution wid th standard deviationOrdered By: Shyla Randle on 08-29-2024 Erythrocyte distribution width (RBC) [Ratio] 53.0 fl High 35.1-43.9 [facility] Erythrocyte sedimentation ra teOrdered By: Shyla Randle on 08-29-2024 ESR (Bld) [Velocity] 27 mm/h 0-30 [facility] Glomerular filtration rate ( GFR) estimation/1.73 sq m using serum, plasma, or whole bOrdered By: Shyla Randle on 08-29-2024 GFR/1.73 sq M.predicted among non-blacks MDRD (S/P/Bld) [Vol rate/Area] 47 mL/min/{1.73_m2} Low >60 [facility] Comment on above: mL/min/1.73m2 CKD-EP I Creatinine Equation (2020) Hematocrit Auto (Bld) [Volum e fraction]Ordered By: Shyla Randle on 08-29-2024 Hematocrit (Bld) [Volume fraction] 41.5 % 37-47 [facility] Hemoglobin measurementOrdere d By: Shyla Randle on 08-29-2024 Hemoglobin (Bld) [Mass/Vol] 12.8 g/dL 12.0-15.0 [facility] Immature granulocytes/100 WB C Auto (Bld)Ordered By: Shyla Randle on 08-29-2024 Immature granulocytes/100 WBC (Bld) 0.400 % 0.0-0.9 [facility] Comment on above: IG% - Immature Granu locytes (promyelocytes, myelocytes and metamyelocytes) > 1% indicates that a LEFT SHIFT is Present. Laboratory - Chemistry and C hemistry - challengeOrdered By: Shyla Randle on 08-29-2024 AST [Catalytic activity/Vol] 24 U/L <32 [facility] MCV (mean corpuscular volume ) determinationOrdered By: Shyla Randle on 08-29-2024 MCV (RBC) [Entitic vol] 89.8 fL 81-99 [facility] Mean corpuscular hemoglobin (MCH) determinationOrdered By: Shyla Randle on 08-29-2024 MCH (RBC) [Entitic mass] 27.7 pg 27.0-32.0 [facility] Mean corpuscular hemoglobin concentration (MCHC) determinationOrdered By: Shyla Randle on 08-29-2024 MCHC (RBC) [Mass/Vol] 30.8 g/dL Low 32-36 [facility] Mean platelet volume determi nationOrdered By: Shyla Randle on 08-29-2024 Platelet mean volume (Bld) [Entitic vol] 13.4 fL High 6.2-12.0 [facility] Monocyte percentageOrdered B y: Shyla Randle on 08-29-2024 Monocytes/100 WBC (Bld) 7.7 % 0-10 [facility] Neutrophil percentageOrdered By: Shyla Randle on 08-29-2024 Neutrophils/100 WBC (Bld) 71.2 % High 47-70 [facility] Nucleated red blood cell per centageOrdered By: Shyla Randle on 08-29-2024 Nucleated RBC/100 WBC (Bld) [Ratio] 0 % 0-5 [facility] Platelet countOrdered By: Matilde Randle on 08-29-2024 Platelets (Bld) [#/Vol] 226 10*3/uL 150-450 [facility] Potassium measurement (mass/ volume)Ordered By: Shyla Randle on 08-29-2024 Potassium (Unsp spec) [Mass/Vol] 4.3 mmol/L 3.3-5.1 [facility] RBC Auto (Bld) [#/Vol]Ordere d By: Shyla Randle on 08-29-2024 RBC (Bld) [#/Vol] 4.62 10*6/uL 4.2-5.4 [facility] Serum creatinine measurement (mass/volume)Ordered By: Shyla Randle on 08-29-2024 Creatinine [Mass/Vol] 1.17 mg/dL 0.70-1.20 [facility] Serum globulin measurementOr dered By: Shyla Randle on 08-29-2024 Globulin (S) [Mass/Vol] 3.1 g/dL 2.2-4.2 [facility] Serum glucose measurement (m ass/volume)Ordered By: Shyla Randle on 08-29-2024 Glucose [Mass/Vol] 105 mg/dL High 70-99 [facility] Serum or plasma C reactive p rotein measurement (mass/volume)Ordered By: Shyla Randle on 08-29-2024 CRP [Mass/Vol] 3.86 mg/L High 0.0-3.0 [facility] Serum or plasma alanine ortiz otransferase (ALT) measurementOrdered By: Shyla Randle on 08-29-2024 ALT [Catalytic activity/Vol] 9 U/L <35 [facility] Serum or plasma albumin mariely urement (mass/volume)Ordered By: Shyla Randle on 08-29-2024 Albumin [Mass/Vol] 4.2 g/dL 3.4-4.8 [facility] Serum or plasma albumin/glob ulin mass ratioOrdered By: Shyla Randle on 08-29-2024 Albumin/Globulin [Mass ratio] 1.4 {ratio} 0.9-2.4 [facility] Serum or plasma alkaline jordyn sphatase measurementOrdered By: Shyla Randle on 08-29-2024 ALP [Catalytic activity/Vol] 77 U/L 35-104 [facility] Serum or plasma calcium mariely urement (mass/volume)Ordered By: Shyla Randle on 08-29-2024 Calcium [Mass/Vol] 9.8 mg/dL 7.6-11.0 [facility] Serum or plasma urea nitroge n measurement (mass/volume)Ordered By: Shyla Randle on 08-29-2024 Urea nitrogen [Mass/Vol] 26 mg/dL High 4-19 [facility] Sodium levelOrdered By: Paulino Randle on 08-29-2024 Sodium [Moles/Vol] 140 mmol/L 133-145 [facility] Total proteinOrdered By: Rehana Randle on 08-29-2024 Protein [Mass/Vol] 7.4 g/dL 5.9-8.4 [facility] White blood cell (WBC) count Ordered By: Shyla Randle on 08-29-2024 WBC (Bld) [#/Vol] 10.0 10*3/uL 4.4-11.0 [facility] Absolute lymphocyte countOrd ered By: Shyla Randle on 08-05-2024 Lymphocytes Auto (Unsp spec) [#/Vol] 1.26 10*3/uL 0.83-4.51 [facility] Absolute neutrophil countOrd ered By: Shyla Randle on 08-05-2024 Neutrophils (Bld) [#/Vol] 6.4 10*3/uL 2.0-7.7 [facility] Anion gap in Serum or Plasma Ordered By: Shyla Randle on 08-05-2024 Anion gap [Moles/Vol] 12 mmol/L 5-15 [facility] Automated lymphocyte count a s percentage of total leukocytesOrdered By: Shyla Randle on 08-05-2024 Lymphocytes/100 WBC Auto (Unsp spec) 15.1 % Low 19-41 [facility] BUN/creatinine ratioOrdered By: Shyla Randle on 08-05-2024 Urea nitrogen/Creatinine [Mass ratio] 20.9 mg/mg High 10-20 [facility] Basophil percentageOrdered B y: Shyla Randle on 08-05-2024 Basophils/100 WBC (Bld) 0.6 % 0-1 [facility] Bilirubin, totalOrdered By: Shyla Randle on 08-05-2024 Bilirubin [Mass/Vol] 0.46 mg/dL 0.00-1.30 [facility] CBC W/Diff, Automatedon 04-2 Absolute Lymph 1.26 X10 3/uL Normal 0.83-4.51 [facility] Comment on above: Performed By: #### L 101.9900, L501.6710, L100.0100, L500.4050 ####[facility] [address] [place], [address] Absolute Neut 6.4 X10 3/uL Normal 2.0-7.7 [facility] Comment on above: Performed By: #### L 101.9900, L501.6710, L100.0100, L500.4050 ####[facility] [address] [place], [address] Basophils/100 WBC (Bld) 0.6 % Normal 0-1 [facility] Comment on above: Performed By: #### L 101.9900, L501.6710, L100.0100, L500.4050 ####[facility] [address] [place], [address] Eosinophils/100 WBC (Bld) 0.8 % Normal 0-5 [facility] Comment on above: Performed By: #### L 101.9900, L501.6710, L100.0100, L500.4050 ####[facility] [address] [place], [address] Erythrocyte distribution width (RBC) [Ratio] 16.1 % High 11.6-14.6 [facility] Comment on above: Performed By: #### L 101.9900, L501.6710, L100.0100, L500.4050 ####[facility] [address] [place], [address] Hematocrit (Bld) [Volume fraction] 39.5 % Normal 37-47 [facility] Comment on above: Performed By: #### L 101.9900, L501.6710, L100.0100, L500.4050 ####[facility] [address] [place], [address] Hemoglobin (Bld) [Mass/Vol] 12.6 g/dL Normal 12.0-15.0 [facility] Comment on above: Performed By: #### L 101.9900, L501.6710, L100.0100, L500.4050 ####[facility] [address] [place], [address] IG% 0.400 Normal 0.0-0.9 [facility] Comment on above: Result Comment: IG% - Immature Granulocytes (promyelocytes, myelocytes and metamyelocytes) > 1% indicates that a LEFT SHIFT is Present. Performed By: #### L 101.9900, L501.6710, L100.0100, L500.4050 ####[facility] [address] [place], [address] Lymphocytes/100 WBC (Bld) 15.1 % Low 19-41 [facility] Comment on above: Performed By: #### L 101.9900, L501.6710, L100.0100, L500.4050 ####[facility] [address] [place], [address] MCH (RBC) [Entitic mass] 28.0 pg Normal 27.0-32.0 [facility] Comment on above: Performed By: #### L 101.9900, L501.6710, L100.0100, L500.4050 ####[facility] [address] [place], [address] MCHC (RBC) [Mass/Vol] 31.9 g/dL Low 32-36 [facility] Comment on above: Performed By: #### L 101.9900, L501.6710, L100.0100, L500.4050 ####[facility] [address] [place], [address] MCV (RBC) [Entitic vol] 87.8 fL Normal 81-99 [facility] Comment on above: Performed By: #### L 101.9900, L501.6710, L100.0100, L500.4050 ####[facility] [address] [place], [address] Monocytes/100 WBC (Bld) 6.8 % Normal 0-10 [facility] Comment on above: Performed By: #### L 101.9900, L501.6710, L100.0100, L500.4050 ####[facility] [address] [place], [address] Neutrophils/100 WBC (Bld) 76.3 % High 47-70 [facility] Comment on above: Performed By: #### L 101.9900, L501.6710, L100.0100, L500.4050 ####[facility] [address] [place], [address] Nucleated RBC (Bld) [#/Vol] 0 10*3/uL Normal 0-5 [facility] Comment on above: Performed By: #### L 101.9900, L501.6710, L100.0100, L500.4050 ####[facility] [address] [place], [address] Platelet mean volume (Bld) [Entitic vol] 11.6 fL Normal 6.2-12.0 [facility] Comment on above: Performed By: #### L 101.9900, L501.6710, L100.0100, L500.4050 ####[facility] [address] [place], [address] Platelets (Bld) [#/Vol] 278 10*3/uL Normal 150-450 [facility] Comment on above: Performed By: #### L 101.9900, L501.6710, L100.0100, L500.4050 ####[facility] [address] [place], [address] RBC (Bld) [#/Vol] 4.50 10*6/uL Normal 4.2-5.4 [facility] Comment on above: Performed By: #### L 101.9900, L501.6710, L100.0100, L500.4050 ####[facility] [address] [place], [address] RDW SD 52.3 fl High 35.1-43.9 [facility] Comment on above: Performed By: #### L 101.9900, L501.6710, L100.0100, L500.4050 ####[facility] [address] [place], [address] WBC (Bld) [#/Vol] 8.3 10*3/uL Normal 4.4-11.0 [facility] Comment on above: Performed By: #### L 101.9900, L501.6710, L100.0100, L500.4050 ####[facility] [address] [place], [address] CRPon 08-05-2024 C-REACTIVE PROT 9.50 mg/L High 0.0-3.0 [facility] Comment on above: Performed By: #### L 101.9900, L501.6710, L100.0100, L500.4050 ####[facility] [address] [place], [address] Carbon dioxide, total [Moles /volume] in Central venous bloodOrdered By: Shyla Randle on 08-05-2024 CO2 [Moles/Vol] 23.6 mmol/L 21.0-32.0 [facility] Chloride assayOrdered By: Matilde Randle on 08-05-2024 Chloride [Moles/Vol] 103 mmol/L 98-108 [facility] Comprehensive Metabolic Prof ilon 08-05-2024 Albumin [Mass/Vol] 4.1 g/dL Normal 3.4-4.8 [facility] Comment on above: Performed By: #### L 101.9900, L501.6710, L100.0100, L500.4050 ####[facility] [address] [place], [address] Albumin/Globulin [Mass ratio] 1.3 {ratio} Normal 0.9-2.4 [facility] Comment on above: Performed By: #### L 101.9900, L501.6710, L100.0100, L500.4050 ####[facility] [address] [place], [address] ALK PHOS 84 U/L Normal 35-104 [facility] Comment on above: Performed By: #### L 101.9900, L501.6710, L100.0100, L500.4050 ####[facility] [facility] [address] [place], [address] ALT [Catalytic activity/Vol] 10 U/L Normal <=34 [facility] Comment on above: Performed By: #### L 101.9900, L501.6710, L100.0100, L500.4050 ####[facility] [address] [place], [address] AST [Catalytic activity/Vol] 23 U/L Normal <=31 [facility] Comment on above: Performed By: #### L 101.9900, L501.6710, L100.0100, L500.4050 ####[facility] [address] [place], [address] Bilirubin [Mass/Vol] 0.46 mg/dL Normal 0.00-1.30 [facility] Comment on above: Performed By: #### L 101.9900, L501.6710, L100.0100, L500.4050 ####[facility] [address] [place], [address] BUN/CRE 20.9 RATIO High 10-20 [facility] Comment on above: Performed By: #### L 101.9900, L501.6710, L100.0100, L500.4050 ####[facility] [address] [place], [address] Calcium [Mass/Vol] 9.8 mg/dL Normal 7.6-11.0 [facility] Comment on above: Performed By: #### L 101.9900, L501.6710, L100.0100, L500.4050 ####[facility] [address] [place], [address] Chloride [Moles/Vol] 103 mmol/L Normal 98-108 [facility] Comment on above: Performed By: #### L 101.9900, L501.6710, L100.0100, L500.4050 ####[facility] [address] [place], [address] CO2 [Moles/Vol] 23.6 mmol/L Normal 21.0-32.0 [facility] Comment on above: Performed By: #### L 101.9900, L501.6710, L100.0100, L500.4050 ####[facility] [address] [place], [address] Creatinine [Mass/Vol] 1.08 mg/dL Normal 0.70-1.20 [facility] Comment on above: Performed By: #### L 101.9900, L501.6710, L100.0100, L500.4050 ####[facility] [address] [place], [address] GAP 12 Normal 5-15 [facility] Comment on above: Performed By: #### L 101.9900, L501.6710, L100.0100, L500.4050 ####[facility] [address] [place], [address] GFR/1.73 sq M.predicted among non-blacks MDRD (S/P/Bld) [Vol rate/Area] 52 mL/min/{1.73_m2} Low >60 [facility] Comment on above: Result Comment: mL/m in/1.73m2 CKD-EPI Creatinine Equation (2020) Performed By: #### L 101.9900, L501.6710, L100.0100, L500.4050 ####[facility] [address] [place], [address] Globulin (S) [Mass/Vol] 3.2 g/dL Normal 2.2-4.2 [facility] Comment on above: Performed By: #### L 101.9900, L501.6710, L100.0100, L500.4050 ####[facility] [address] [place], [address] Glucose [Mass/Vol] 73 mg/dL Normal 70-99 [facility] Comment on above: Performed By: #### L 101.9900, L501.6710, L100.0100, L500.4050 ####[facility] [address] [place], [address] Potassium [Moles/Vol] 4.2 mmol/L Normal 3.3-5.1 [facility] Comment on above: Performed By: #### L 101.9900, L501.6710, L100.0100, L500.4050 ####[facility] [address] [place], [address] Sodium [Moles/Vol] 139 mmol/L Normal 133-145 [facility] Comment on above: Performed By: #### L 101.9900, L501.6710, L100.0100, L500.4050 ####[facility] [address] [place], [address] T PROT 7.3 g/dL Normal 5.9-8.4 [facility] Comment on above: Performed By: #### L 101.9900, L501.6710, L100.0100, L500.4050 ####[facility] [address] [place], [address] Urea nitrogen [Mass/Vol] 23 mg/dL High 4-19 [facility] Comment on above: Performed By: #### L 101.9900, L501.6710, L100.0100, L500.4050 ####[facility] [address] [place], [address] Eosinophil percentageOrdered By: Shyla Randle on 08-05-2024 Eosinophils/100 WBC (Bld) 0.8 % 0-5 [facility] Erythrocyte Sed Rateon 08-05 SED RATE 15 mm/hr Normal 0-30 [facility] Comment on above: Performed By: #### L 101.9900, L501.6710, L100.0100, L500.4050 ####[facility] [address] [place], [address] Erythrocyte distribution wid th ratioOrdered By: Shyla Randle on 08-05-2024 Erythrocyte distribution width (RBC) [Ratio] 16.1 % High 11.6-14.6 [facility] Erythrocyte distribution wid th standard deviationOrdered By: Shyla Randle on 08-05-2024 Erythrocyte distribution width (RBC) [Ratio] 52.3 fl High 35.1-43.9 [facility] Erythrocyte sedimentation ra teOrdered By: Shyla Randle on 08-05-2024 ESR (Bld) [Velocity] 15 mm/h 0-30 [facility] Glomerular filtration rate ( GFR) estimation/1.73 sq m using serum, plasma, or whole bOrdered By: Shyla Randle on 08-05-2024 GFR/1.73 sq M.predicted among non-blacks MDRD (S/P/Bld) [Vol rate/Area] 52 mL/min/{1.73_m2} Low >60 [facility] Comment on above: mL/min/1.73m2 CKD-EP I Creatinine Equation (2020) Hematocrit Auto (Bld) [Volum e fraction]Ordered By: Shyla Randle on 08-05-2024 Hematocrit (Bld) [Volume fraction] 39.5 % 37-47 [facility] Hemoglobin measurementOrdere d By: Shyla Randle on 08-05-2024 Hemoglobin (Bld) [Mass/Vol] 12.6 g/dL 12.0-15.0 [facility] Immature granulocytes/100 WB C Auto (Bld)Ordered By: Shyla Randle on 08-05-2024 Immature granulocytes/100 WBC (Bld) 0.400 % 0.0-0.9 [facility] Comment on above: IG% - Immature Granu locytes (promyelocytes, myelocytes and metamyelocytes) > 1% indicates that a LEFT SHIFT is Present. Laboratory - Chemistry and C hemistry - challengeOrdered By: Shyla Randle on 08-05-2024 AST [Catalytic activity/Vol] 23 U/L <32 [facility] MCV (mean corpuscular volume ) determinationOrdered By: Shyla Randle on 08-05-2024 MCV (RBC) [Entitic vol] 87.8 fL 81-99 [facility] Mean corpuscular hemoglobin (MCH) determinationOrdered By: Shyla Randle 08-05-2024 MCH (RBC) [Entitic mass] 28.0 pg 27.0-32.0 [facility] Mean corpuscular hemoglobin concentration (MCHC) determinationOrdered By: Shyla Randle on 08-05-2024 MCHC (RBC) [Mass/Vol] 31.9 g/dL Low 32-36 [facility] Mean platelet volume determi nationOrdered By: Shyla Randle on 08-05-2024 Platelet mean volume (Bld) [Entitic vol] 11.6 fL 6.2-12.0 [facility] Monocyte percentageOrdered B y: Shyla Randle on 08-05-2024 Monocytes/100 WBC (Bld) 6.8 % 0-10 [facility] Neutrophil percentageOrdered By: Shyla Randle on 08-05-2024 Neutrophils/100 WBC (Bld) 76.3 % High 47-70 [facility] Nucleated red blood cell per centageOrdered By: Shyla Randle on 08-05-2024 Nucleated RBC/100 WBC (Bld) [Ratio] 0 % 0-5 [facility] Platelet countOrdered By: Matilde Randle on 08-05-2024 Platelets (Bld) [#/Vol] 278 10*3/uL 150-450 [facility] Potassium measurement (mass/ volume)Ordered By: Shyla Randle on 08-05-2024 Potassium (Unsp spec) [Mass/Vol] 4.2 mmol/L 3.3-5.1 [facility] RBC Auto (Bld) [#/Vol]Ordere d By: Shyla Randle on 08-05-2024 RBC (Bld) [#/Vol] 4.50 10*6/uL 4.2-5.4 [facility] Serum creatinine measurement (mass/volume)Ordered By: Shyla Randle on 08-05-2024 Creatinine [Mass/Vol] 1.08 mg/dL 0.70-1.20 [facility] Serum globulin measurementOr dered By: Shyla Randle on 08-05-2024 Globulin (S) [Mass/Vol] 3.2 g/dL 2.2-4.2 [facility] Serum glucose measurement (m ass/volume)Ordered By: Shyla Randle on 08-05-2024 Glucose [Mass/Vol] 73 mg/dL 70-99 [facility] Serum or plasma C reactive p rotein measurement (mass/volume)Ordered By: Shyla Randle on 08-05-2024 CRP [Mass/Vol] 9.50 mg/L High 0.0-3.0 [facility] Serum or plasma alanine ortiz otransferase (ALT) measurementOrdered By: Shyla Randle on 08-05-2024 ALT [Catalytic activity/Vol] 10 U/L <35 [facility] Serum or plasma albumin mariely urement (mass/volume)Ordered By: Shyla Randle on 08-05-2024 Albumin [Mass/Vol] 4.1 g/dL 3.4-4.8 [facility] Serum or plasma albumin/glob ulin mass ratioOrdered By: Shyla Randle on 08-05-2024 Albumin/Globulin [Mass ratio] 1.3 {ratio} 0.9-2.4 [facility] Serum or plasma alkaline jordyn sphatase measurementOrdered By: Shyla Randle on 08-05-2024 ALP [Catalytic activity/Vol] 84 U/L 35-104 [facility] Serum or plasma calcium mariely urement (mass/volume)Ordered By: Shyla Randle on 08-05-2024 Calcium [Mass/Vol] 9.8 mg/dL 7.6-11.0 [facility] Serum or plasma urea nitroge n measurement (mass/volume)Ordered By: Shyla Randle on 08-05-2024 Urea nitrogen [Mass/Vol] 23 mg/dL High 4-19 [facility] Sodium levelOrdered By: Paulino Randle on 08-05-2024 Sodium [Moles/Vol] 139 mmol/L 133-145 [facility] Total proteinOrdered By: Rehana Randle on 08-05-2024 Protein [Mass/Vol] 7.3 g/dL 5.9-8.4 [facility] White blood cell (WBC) count Ordered By: Shyla Randle on 08-05-2024 WBC (Bld) [#/Vol] 8.3 10*3/uL 4.4-11.0 [facility] Echocardiogram study reportO rdered By: Kenny Alejandro on 07-07-2024 Study report [facility] [address] [place] [address] Echo Complete 07/04/24 1107 MR#: [id number] Acct: [id number] Name: HILDA MULLINS Rep #:[id number] : 1945 78 From: Kenny Huang Attending Dr: Soraya Mark PA Status: REG CLI Ordering Dr: Soraya Mark PA Date: 07/04/24 Location: [facility] Sex: F C Admitted: Reason For Study [...] ~ Date Dictated: 07/04/241106 Date Transcribed: 07/07/24813 Science Interpreter: Signed [facility] Work Phone: Echo Completeon 07-04-2024 Echo Complete [facility] [address] [place] [address] Echo Complete 07/04/241106 MR#: [id number] Acct: [id number] Name: HILDA MULLINS ANN Rep #: [id number] : 1945 78 From: Kenny Alejandro MD Attending Dr: MATILDE Rapp Status: REG CLI Ordering Dr: Soraya Mark Date: 06/08 12/01 Location: [facility] Sex: F C Admitted: Reason For Study [...] Physician: Davey Valente Performed By: Haley Gardiner, ROSALIND 07/07/24813 Date Kenny Alejandro MD CC: Dr. Davey Valente DO; MATILDE Rapp Date Dictated: 07/04/24 1107 Date Transcribed: 07/07/24813 Science Interpreter: [facility]RE[facility]-20[facility] Panel InformationOrdered By: Wilfredo Cottrell on 06-16-2024 [facility] [address] [place] [address] CR - Individual Treatment Plan MR#: [id number] Acct: [id number] Name: HILDA MULLINS Rep #:[id number] : 1945 78 From: Wilfredo Escalante BS, [...] Instruct on chol (more content not included)... [facility] Absolute lymphocyte countOrd ered By: Soraya Mark on 06-09-2024 Lymphocytes Auto (Unsp spec) [#/Vol] 1.45 10*3/uL 0.83-4.51 [facility] Absolute neutrophil countOrd ered By: Soraya Mark on 06-09-2024 Neutrophils (Bld) [#/Vol] 6.7 10*3/uL 2.0-7.7 [facility] Automated lymphocyte count a s percentage of total leukocytesOrdered By: Soraya Mark on 06-09-2024 Lymphocytes/100 WBC Auto (Unsp spec) 15.7 % Low 19-41 [facility] BUN/creatinine ratioOrdered By: Soraya Mark on 06-09-2024 Urea nitrogen/Creatinine [Mass ratio] 22.3 mg/mg High 10-20 [facility] Basic Metabolic Profile (BMP )on 06-09-2024 Anion gap [Moles/Vol] 11 mmol/L Normal 5-15 [facility] Comment on above: Performed By: #### L 501.9520, L500.2500, L100.0100 #### [facility] Laboratory [address] [place], [address] BUN/CRE 22.3 RATIO High 10-20 [facility] Comment on above: Performed By: #### L 501.9520, L500.2500, L100.0100 #### [facility] [address] [place], [address] Calcium [Mass/Vol] 9.9 mg/dL Normal 7.6-11.0 [facility] Comment on above: Performed By: #### L 501.9520, L500.2500, L100.0100 #### [facility] [address] [place], [address] Chloride [Moles/Vol] 103 mmol/L Normal 96-108 [facility] Comment on above: Performed By: #### L 501.9520, L500.2500, L100.0100 #### [facility] [address] [place], [address] CO2 [Moles/Vol] 24.5 mmol/L Normal 22.0-29.0 [facility] Comment on above: Performed By: #### L 501.9520, L500.2500, L100.0100 #### [facility] [address] [place], [address] Creatinine [Mass/Vol] 1.09 mg/dL Normal 0.70-1.20 [facility] Comment on above: Performed By: #### L 501.9520, L500.2500, L100.0100 #### [facility] [address] [place], [address] GFR/1.73 sq M.predicted among non-blacks MDRD (S/P/Bld) [Vol rate/Area] 51 mL/min/{1.73_m2} Low >60 [facility] Comment on above: Result Comment: mL/m in/1.73m2 CKD-EPI Creatinine Equation (2020) Performed By: #### L 501.9520, L500.2500, L100.0100 #### [facility] [address] [place], [address] Glucose [Mass/Vol] 65 mg/dL Low 70-99 [facility] Comment on above: Performed By: #### L 501.9520, L500.2500, L100.0100 #### [facility] [address] [place], [address] Potassium [Moles/Vol] 4.5 mmol/L Normal 3.3-5.1 [facility] Comment on above: Performed By: #### L 501.9520, L500.2500, L100.0100 #### [facility] [address] [place], [address] Sodium [Moles/Vol] 138 mmol/L Normal 133-145 [facility] Comment on above: Performed By: #### L 501.9520, L500.2500, L100.0100 #### [facility] [address] [place], [address] Urea nitrogen [Mass/Vol] 24 mg/dL High 4-19 [facility] Comment on above: Performed By: #### L 501.9520, L500.2500, L100.0100 #### [facility] [address] [place], [address] Basophil percentageOrdered B y: Soraya Mark on 06-09-2024 Basophils/100 WBC (Bld) 0.8 % 0-1 [facility] CBC W/Diff, Automatedon Absolute Lymph 1.45 X10 3/uL Normal 0.83-4.51 [facility] Comment on above: Performed By: #### L 501.9520, L500.2500, L100.0100 #### [facility] [address] [place], [address] Absolute Neut 6.7 X10 3/uL Normal 2.0-7.7 [facility] Comment on above: Performed By: #### L 501.9520, L500.2500, L100.0100 #### [facility] [address] [place], [address] Basophils/100 WBC (Bld) 0.8 % Normal 0-1 [facility] Comment on above: Performed By: #### L 501.9520, L500.2500, L100.0100 #### [facility] [address] [place], [address] Eosinophils/100 WBC (Bld) 0.5 % Normal 0-5 [facility] Comment on above: Performed By: #### L 501.9520, L500.2500, L100.0100 #### [facility] [address] [place], [address] Erythrocyte distribution width (RBC) [Ratio] 15.3 % High 11.6-14.6 [facility] Comment on above: Performed By: #### L 501.9520, L500.2500, L100.0100 #### [facility] [address] [place], [address] Hematocrit (Bld) [Volume fraction] 42.0 % Normal 37-47 [facility] Comment on above: Performed By: #### L 501.9520, L500.2500, L100.0100 #### [facility] [address] [place], [address] Hemoglobin (Bld) [Mass/Vol] 13.2 g/dL Normal 12.0-15.0 [facility] Comment on above: Performed By: #### L 501.9520, L500.2500, L100.0100 #### [facility] [address] [place], [address] IG% 0.700 Normal 0.0-0.9 [facility] Comment on above: Result Comment: IG% - Immature Granulocytes (promyelocytes, myelocytes and metamyelocytes) > 1% indicates that a LEFT SHIFT is Present. Performed By: #### L 501.9520, L500.2500, L100.0100 #### [facility] [address] [place], [address] Lymphocytes/100 WBC (Bld) 15.7 % Low 19-41 [facility] Comment on above: Performed By: #### L 501.9520, L500.2500, L100.0100 #### [facility] [address] [place], [address] MCH (RBC) [Entitic mass] 28.1 pg Normal 27.0-32.0 [facility] Comment on above: Performed By: #### L 501.9520, L500.2500, L100.0100 #### [facility] [address] [place], [address] MCHC (RBC) [Mass/Vol] 31.4 g/dL Low 32-36 [facility] Comment on above: Performed By: #### L 501.9520, L500.2500, L100.0100 #### [facility] [address] [place], [address] MCV (RBC) [Entitic vol] 89.6 fL Normal 81-99 [facility] Comment on above: Performed By: #### L 501.9520, L500.2500, L100.0100 #### [facility] [address] [place], [address] Monocytes/100 WBC (Bld) 9.1 % Normal 0-10 [facility] Comment on above: Performed By: #### L 501.9520, L500.2500, L100.0100 #### [facility] [address] [place], [address] Neutrophils/100 WBC (Bld) 73.2 % High 47-70 [facility] Comment on above: Performed By: #### L 501.9520, L500.2500, L100.0100 #### [facility] [address] [place], [address] Nucleated RBC (Bld) [#/Vol] 0 10*3/uL Normal 0-5 [facility] Comment on above: Performed By: #### L 501.9520, L500.2500, L100.0100 #### [facility] [address] [place], [address] Platelet mean volume (Bld) [Entitic vol] 11.5 fL Normal 6.2-12.0 [facility] Comment on above: Performed By: #### L 501.9520, L500.2500, L100.0100 #### [facility] [address] [place], [address] Platelets (Bld) [#/Vol] 291 10*3/uL Normal 150-450 [facility] Comment on above: Performed By: #### L 501.9520, L500.2500, L100.0100 #### [facility] [address] [place], [address] RBC (Bld) [#/Vol] 4.69 10*6/uL Normal 4.2-5.4 [facility] Comment on above: Performed By: #### L 501.9520, L500.2500, L100.0100 #### [facility] [address] [place], [address] RDW SD 50.6 fl High 35.1-43.9 [facility] Comment on above: Performed By: #### L 501.9520, L500.2500, L100.0100 #### [facility] [address] [place], [address] WBC (Bld) [#/Vol] 9.2 10*3/uL Normal 4.4-11.0 [facility] Comment on above: Performed By: #### L 501.9520, L500.2500, L100.0100 #### [facility] [address] [place], [address] Carbon dioxide measurementOr dered By: Soraya Mark on 06-09-2024 CO2 [Moles/Vol] 24.5 mmol/L 22.0-29.0 [facility] Chloride measurementOrdered By: Soraya Mark on 06-09-2024 Chloride [Moles/Vol] 103 mmol/L 96-108 [facility] Eosinophil percentageOrdered By: Soraya Mark on 06-09-2024 Eosinophils/100 WBC (Bld) 0.5 % 0-5 [facility] Erythrocyte distribution wid th ratioOrdered By: Soraya Mark on 06-09-2024 Erythrocyte distribution width (RBC) [Ratio] 15.3 % High 11.6-14.6 [facility] Erythrocyte distribution wid th standard deviationOrdered By: Soarya Mark on 06-09-2024 Erythrocyte distribution width (RBC) [Entitic vol] 50.6 fL High 35.1-43.9 [facility] Erythrocyte distribution width (RBC) [Ratio] 50.6 fl High 35.1-43.9 [facility] GFR/1.73 sq M.predicted ariel g non-blacks MDRD (S/P/Bld) [Vol rate/Area]Ordered By: Soraya Mark on 06-09-2024 Estimated GFR (MDRD) Non-Af Amer 51 Low >60 [facility] Comment on above: mL/min/1.73m2 CKD-EP I Creatinine Equation (2020) Glomerular filtration rate ( GFR) estimation/1.73 sq m using serum, plasma, or whole bOrdered By: Soraya Mark on 06-09-2024 GFR/1.73 sq M.predicted among non-blacks MDRD (S/P/Bld) [Vol rate/Area] 51 mL/min/{1.73_m2} Low >60 [facility] Comment on above: mL/min/1.73m2 CKD-EP I Creatinine Equation (2020) Hematocrit Auto (Bld) [Volum e fraction]Ordered By: Soraya Mark on 06-09-2024 Hematocrit (Bld) [Volume fraction] 42.0 % 37-47 [facility] Hemoglobin measurementOrdere d By: Soraya Mark on 06-09-2024 Hemoglobin (Bld) [Mass/Vol] 13.2 g/dL 12.0-15.0 [facility] Immature granulocytes/100 WB C Auto (Bld)Ordered By: Soraya Mark on 06-09-2024 Immature granulocytes/100 WBC (Bld) 0.700 % 0.0-0.9 [facility] Comment on above: IG% - Immature Granu locytes (promyelocytes, myelocytes and metamyelocytes) > 1% indicates that a LEFT SHIFT is Present. Lymphocytes Auto (Unsp spec) [#/Vol]Ordered By: Soraya Mark on 06-09-2024 Lymphocytes (Bld) [#/Vol] 1.45 10*3/uL 0.83-4.51 [facility] Lymphocytes/100 WBC Auto (Un sp spec)Ordered By: Soraya Mark on 06-09-2024 Lymphocytes/100 WBC (Bld) 15.7 % Low 19-41 [facility] MCV (mean corpuscular volume ) determinationOrdered By: Soraya Mark on 06-09-2024 MCV (RBC) [Entitic vol] 89.6 fL 81-99 [facility] Mean corpuscular hemoglobin (MCH) determinationOrdered By: Soraya Mark on 06-09-2024 MCH (RBC) [Entitic mass] 28.1 pg 27.0-32.0 [facility] Mean corpuscular hemoglobin concentration (MCHC) determinationOrdered By: Soraya Mark on 06-09-2024 MCHC (RBC) [Mass/Vol] 31.4 g/dL Low 32-36 [facility] Mean platelet volume determi nationOrdered By: Soraya Mark on 06-09-2024 Platelet mean volume (Bld) [Entitic vol] 11.5 fL 6.2-12.0 [facility] Monocyte percentageOrdered B y: Soraya Mark on 06-09-2024 Monocytes/100 WBC (Bld) 9.1 % 0-10 [facility] Neutrophil percentageOrdered By: Soraya Mark on 06-09-2024 Neutrophils/100 WBC (Bld) 73.2 % High 47-70 [facility] Nucleated red blood cell per centageOrdered By: Soraya Mark on 06-09-2024 Nucleated RBC/100 WBC (Bld) [Ratio] 0 % 0-5 [facility] Platelet countOrdered By: Leidy Mark on 06-09-2024 Platelets (Bld) [#/Vol] 291 10*3/uL 150-450 [facility] RBC Auto (Bld) [#/Vol]Ordere d By: Soraya Mark on 06-09-2024 RBC (Bld) [#/Vol] 4.69 10*6/uL 4.2-5.4 [facility] Serum creatinine measurement (mass/volume)Ordered By: Soraya Mark on 06-09-2024 Creatinine [Mass/Vol] 1.09 mg/dL 0.70-1.20 [facility] Serum glucose measurement (m ass/volume)Ordered By: Soraya Mark on 06-09-2024 Glucose [Mass/Vol] 65 mg/dL Low 70-99 [facility] Serum or plasma anion gap de termination (moles/volume)Ordered By: Soraya Mark on 06-09-2024 Anion gap [Moles/Vol] 11 mmol/L 5-15 [facility] Serum or plasma calcium mariely urement (mass/volume)Ordered By: Soraya Mark on 06-09-2024 Calcium [Mass/Vol] 9.9 mg/dL 7.6-11.0 [facility] Serum or plasma potassium me asurementOrdered By: Soraya Mark on 06-09-2024 Potassium [Moles/Vol] 4.5 mmol/L 3.3-5.1 [facility] Serum or plasma sodium measu rement (moles/volume)Ordered By: Soraya Mark on 06-09-2024 Sodium [Moles/Vol] 138 mmol/L 133-145 [facility] Serum or plasma urea nitroge n measurement (mass/volume)Ordered By: Soraya Mark on 06-09-2024 Urea nitrogen [Mass/Vol] 24 mg/dL High 4-19 [facility] TSH DL <= 0.005 mIU/L QnOrde red By: Soraya Mark on 06-09-2024 Thyroid Stimulating Hormone (TSH) 2.550 uIU/mL 0.300-4.20 0 [facility] TSH Qn 2.550 uIU/mL 0.300-4.20 0 [facility] Thyroid Stim Hormone (TSH)on 06-09-2024 TSH 2.550 uIU/mL Normal 0.300-4.20 0 [facility] Comment on above: Performed By: #### L 501.9520, L500.2500, L100.0100 #### [facility] Laboratory [address] [place], [address] White blood cell (WBC) count Ordered By: Soraya Mark on 06-09-2024 WBC (Bld) [#/Vol] 9.2 10*3/uL 4.4-11.0 [facility] CR - History AND Physicalon 05-19-2024 CR - History & Physical [facility] [address] [place] [address] CR - History Physical MR#: [id number] Acct: [id number] Name: HILDA MULLINS Rep #: [id number] : 1945 78 From: Wilfredo Escalante BS, RVT PCP: Dr. Davey aVlente DO DOS: 05/19/24 CR - History Physical [...] mg-hyalur 1.65 mg-CF borate 108 mg tablet ([employer]) Allergies Allergies oxycodone Allergy (Severe, Verified 05/14/24 [...] Negative Advanced Directives Advanced Directives Power of Nail Professional: Yes Living Will: Yes Advance Directives Information [...] Assessment Shania (more content not included)... Normal [facility] 12 Lead EKG performed by [facility] [place] on 05-14-2024 12 Lead EKG performed by [facility] [address] [place] [address] 12 Lead EKG performed by [facility] 05/14/24 1456 MR#: [id number] Acct: [id number] Name: HILDA MULLINS Rep #: [id number] : 1945 78 From: Soraya Victoria Attending Dr: MATILDE Rapp Status: DEP AMB Ordering Dr: Soraya Mark Date: 08/31 [place] [facility] [place] F C Admitted: BMS/12 Lead EKG performed by [facility] ECG Report Interpretation Si nus Rhythm Low voltage in precordial leads. -RSR(V1) -nondiagnostic. -Left atrial enlargement. ABNORMAL Electronically signed on 05/15/2024 at 11:40 by Kenny Alejandro Software Version [id number] 05/15/24 1146 Date Soraya CLAYTON CC: Dr. Davey Valente, Date Dictated: 05/14/24 1456 Date Transcribed: 05/14/241455 Science Interpreter: NAYE Signed Normal [facility] Cardiology Visit Reporton Cardiology Visit Report [facility] [address] [place] [address] OFFICE VISIT Date of Service: 05/14/24 MR#: [id number] Acct: [id number] Name: HILDA MULLINS ANN Rep #: [id number] : 1945 Provider: MATILDE Chen Age/Sex: 78/F [place] [facility] [place] [facility] [place]: Signed HPI HPI History of Present [...] mitral valve prolapse. She was referred to [facility] for mitral valve repair. Patient did undergo a mitral valve repair on March 24, 2024 at [facility]. Postoperatively she had atrial fibs with [...] Reasons: 1 M FU (OK PER MMM) Metal Fence Erector Required: No Is patient in pain?: No [...] mg-hyalur 1.65 mg-CF borate 108 mg tablet ([employer]) Have you fallen in the past year?: No [facility] Medical History (Reviewed (more content not included)... Normal [facility] Basic Metabolic Profile (BMP )on 04-30-2024 BUN/CRE 15.3 RATIO Normal 01-26 [facility] Comment on above: Performed By: #### L 500.2500 ####[facility] [address] [place], [address] CA,Total 9.5 mg/dL Normal 8.5-10.1 [facility] Comment on above: Performed By: #### L 500.2500 ####[facility] [address] [place], [address] Chloride [Moles/Vol] 104 mmol/L Normal 98-107 [facility] Comment on above: Performed By: #### L 500.2500 ####[facility] [address] [place], [address] CO2 [Moles/Vol] 24.0 mmol/L Normal 21.0-32.0 [facility] Comment on above: Performed By: #### L 500.2500 ####[facility] [address] [place], [address] Creatinine [Mass/Vol] 1.18 mg/dL High 0.55-1.02 [facility] Comment on above: Result Comment: The validity of the calculated GFR GFRAA in patients over 70 years has not been determined. Clinical correlation is essential. Performed By: #### L 500.2500 ####[facility] [address] [place], [address] EST GFR - AA 57 mL/min Low >60 [facility] Comment on above: Result Comment: Afri can Dominican GFR Calc Performed By: #### L 500.2500 ####[facility] [address] [place], [address] GAP 7 Normal 5-15 [facility] Comment on above: Performed By: #### L 500.2500 ####[facility] [address] [place], [address] GFR/1.73 sq M.predicted among non-blacks MDRD (S/P/Bld) [Vol rate/Area] 47 mL/min/{1.73_m2} Low >60 [facility] Comment on above: Result Comment: Non- GFR Calc Performed By: #### L 500.2500 ####[facility] [address] [place], [address] Glucose [Mass/Vol] 113 mg/dL High 74-106 [facility] Comment on above: Result Comment: Fast ing Glucose result from 100 to 125 mg/dL suggests IMPAIRED HOMEOSTASIS per A.D.A. criteria. Performed By: #### L 500.2500 ####[facility] [address] [place], [address] Potassium [Moles/Vol] 4.3 mmol/L Normal 3.5-5.1 [facility] Comment on above: Performed By: #### L 500.2500 ####[facility] [address] [place], [address] Sodium [Moles/Vol] 135 mmol/L Low 136-145 [facility] Comment on above: Performed By: #### L 500.2500 ####[facility] [address] [place], [address] Urea nitrogen [Mass/Vol] 18 mg/dL Normal 7-18 [facility] Comment on above: Performed By: #### L 500.2500 ####[facility] [address] [place], [address] Blood urea nitrogen (BUN)/cr eatinine ratioOrdered By: Soraya Mark on 04-30-2024 Urea nitrogen/Creatinine [Mass ratio] 15.3 mg/mg 10-20 [facility] CNPTOUTREACHon 04-30-2024 CNPTOUTREACH Normal [facility] Carbon dioxide measurementOr dered By: Soraya Mark on 04-30-2024 CO2 [Moles/Vol] 24.0 mmol/L 21.0-32.0 [facility] Chloride measurementOrdered By: Soraya Mark on 04-30-2024 Chloride [Moles/Vol] 104 mmol/L 98-107 [facility] Estimated glomerular filtrat ion rate (GFR) AmericanOrdered By: Soraya Mark on 04-30-2024 Estimated GFR (MDRD) Amer 57 mL/min Low >60 [facility] Comment on above: GFR Calc Glomerular filtration rate ( GFR) estimationOrdered By: Soraya Mark on 04-30-2024 Estimated GFR (MDRD) Non-Af Amer 47 mL/min Low >60 [facility] Comment on above: Non- GFR Calc GFR/1.73 sq M.predicted among non-blacks MDRD (S/P/Bld) [Vol rate/Area] 47 mL/min/{1.73_m2} Low >60 [facility] Comment on above: Non- GFR Calc Glucose measurementOrdered B y: Soraya Mark on 04-30-2024 Glucose [Mass/Vol] 113 mg/dL High 74-106 [facility] Comment on above: Fasting Glucose resu lt from 100 to 125 mg/dL suggests IMPAIRED HOMEOSTASIS per A.D.A. criteria. Potassium measurementOrdered By: Soraya Mark on 04-30-2024 Potassium [Moles/Vol] 4.3 mmol/L 3.5-5.1 [facility] Serum anion gap measurementO rdered By: Soraya Mark on 04-30-2024 Anion gap [Moles/Vol] 7 mmol/L 5-15 [facility] Serum or plasma calcium mariely urement (mass/volume)Ordered By: Soraya Mark on 04-30-2024 Calcium [Mass/Vol] 9.5 mg/dL 8.5-10.1 [facility] Serum or plasma creatinine m easurement (mass/volume)Ordered By: Soraya Mark on 04-30-2024 Creatinine [Mass/Vol] 1.18 mg/dL High 0.55-1.02 [facility] Comment on above: The validity of the calculated GFR & GFRAA in patients over 70 years has not been determined. Clinical correlation is essential. Serum or plasma urea nitroge n measurement (mass/volume)Ordered By: Soraya Mark on 04-30-2024 Urea nitrogen [Mass/Vol] 18 mg/dL 7-18 [facility] Sodium levelOrdered By: Vinnie Mark on 04-30-2024 Sodium [Moles/Vol] 135 mmol/L Low 136-145 [facility] 12 Lead EKG performed by [facility] on 04-10-2024 12 Lead EKG performed by [facility] [address] [place] [address] 12 Lead EKG performed by [facility] 04/10/24833 MR#: [id number] Acct: [id number] Name: HILDA MULLINS Rep #: [id number] : 1945 78 From: Soraya Victoria Attending Dr: MATILDE Rapp Status: DEP AMB Ordering Dr: Soraya Mark Date: 06/03 [place] [facility] [place] F C Admitted: [facility]/12 Lead EKG performed by [facility] ECG Report Interpretation Si nus Rhythm -RSR(V1) -nondiagnostic. -Left atrial enlargement. BORDERLINEElectronically signed on 04/12/2024 at 12:47 by Kenny Alejandro Software Version [id number] 04/12/24 1249 Date Soraya CLAYTON CC: Dr. Davey Valente, Date Dictated: 04/10/24833 Date Transcribed: 04/10/24833 Science Interpreter: NAYE Signed Normal [facility] Absolute neutrophil countOrd ered By: Soraya Mark on 04-10-2024 Neutrophils (Bld) [#/Vol] 7.1 10*3/uL 2.0-7.7 [facility] Basic Metabolic Profile (BMP )on 04-10-2024 BUN/CRE 16.5 RATIO Normal 10-20 [facility] Comment on above: Performed By: #### L 100.0100, L500.2500 ####[facility] [address] [place], [address] CA,Total 9.7 mg/dL Normal 8.5-10.1 [facility] Comment on above: Performed By: #### L 100.0100, L500.2500 ####[facility] [address] [place], [address] Chloride [Moles/Vol] 105 mmol/L Normal 98-107 [facility] Comment on above: Performed By: #### L 100.0100, L500.2500 ####[facility] [address] [place], [address] CO2 [Moles/Vol] 27.0 mmol/L Normal 21.0-32.0 [facility] Comment on above: Performed By: #### L 100.0100, L500.2500 ####[facility] [address] [place], [address] Creatinine [Mass/Vol] 1.21 mg/dL High 0.55-1.02 [facility] Comment on above: Result Comment: The validity of the calculated GFR GFRAA in patients over 70 years has not been determined. Clinical correlation is essential. Performed By: #### L 100.0100, L500.2500 ####[facility] [address] [place], [address] EST GFR - AA 55 mL/min Low >60 [facility] Comment on above: Result Comment: Afri can Dominican GFR Calc Performed By: #### L 100.0100, L500.2500 ####[facility] [address] [place], [address] GAP 7 Normal 5-15 [facility] Comment on above: Performed By: #### L 100.0100, L500.2500 ####[facility] [address] [place], [address] GFR/1.73 sq M.predicted among non-blacks MDRD (S/P/Bld) [Vol rate/Area] 46 mL/min/{1.73_m2} Low >60 [facility] Comment on above: Result Comment: Non- GFR Calc Performed By: #### L 100.0100, L500.2500 ####[facility] [address] [place], [address] Glucose [Mass/Vol] 88 mg/dL Normal 74-106 [facility] Comment on above: Performed By: #### L 100.0100, L500.2500 ####[facility] [address] [place], [address] Potassium [Moles/Vol] 4.4 mmol/L Normal 3.5-5.1 [facility] Comment on above: Performed By: #### L 100.0100, L500.2500 ####[facility] [address] [place], [address] Sodium [Moles/Vol] 139 mmol/L Normal 136-145 [facility] Comment on above: Performed By: #### L 100.0100, L500.2500 ####[facility] [address] [place], [address] Urea nitrogen [Mass/Vol] 20 mg/dL High 7-18 [facility] Comment on above: Performed By: #### L 100.0100, L500.2500 ####[facility] [address] [place], [address] Basophil percentageOrdered B y: Soraya Mark on 04-10-2024 Basophils/100 WBC (Bld) 1.1 % High 0-1 [facility] Blood urea nitrogen (BUN)/cr eatinine ratioOrdered By: Soraya Mark on 04-10-2024 Urea nitrogen/Creatinine [Mass ratio] 16.5 mg/mg 10-20 [facility] CBC W/Diff, Automatedon Absolute Lymph 1.50 X10 3/uL Normal 0.83-4.51 [facility] Comment on above: Performed By: #### L 100.0100, L500.2500 ####[facility] [address] [place], [address] Absolute Neut 7.1 X10 3/uL Normal 2.0-7.7 [facility] Comment on above: Performed By: #### L 100.0100, L500.2500 ####[facility] [address] [place], [address] Basophils/100 WBC (Bld) 1.1 % High 0-1 [facility] Comment on above: Performed By: #### L 100.0100, L500.2500 ####[facility] [address] [place], [address] Eosinophils/100 WBC (Bld) 3.3 % Normal 0-5 [facility] Comment on above: Performed By: #### L 100.0100, L500.2500 ####[facility] [address] [place], [address] Erythrocyte distribution width (RBC) [Ratio] 14.4 % Normal 11.6-14.6 [facility] Comment on above: Performed By: #### L 100.0100, L500.2500 ####[facility] [address] [place], [address] Hematocrit (Bld) [Volume fraction] 37.4 % Normal 37-47 [facility] Comment on above: Performed By: #### L 100.0100, L500.2500 ####[facility] [address] [place], [address] Hemoglobin (Bld) [Mass/Vol] 11.5 g/dL Low 12.0-15.0 [facility] Comment on above: Performed By: #### L 100.0100, L500.2500 ####[facility] [address] [place], [address] IG% 0.500 Normal 0.0-0.9 [facility] Comment on above: Result Comment: IG% - Immature Granulocytes (promyelocytes, myelocytes and metamyelocytes) > 1% indicates that a LEFT SHIFT is Present. Performed By: #### L 100.0100, L500.2500 ####[facility] [address] [place], [address] Lymphocytes/100 WBC (Bld) 14.9 % Low 19-41 [facility] Comment on above: Performed By: #### L 100.0100, L500.2500 ####[facility] [address] [place], [address] MCH (RBC) [Entitic mass] 28.7 pg Normal 27.0-32.0 [facility] Comment on above: Performed By: #### L 100.0100, L500.2500 ####[facility] [address] [place], [address] MCHC (RBC) [Mass/Vol] 30.7 g/dL Low 32-36 [facility] Comment on above: Performed By: #### L 100.0100, L500.2500 ####[facility] [address] [place], [address] MCV (RBC) [Entitic vol] 93.3 fL Normal 81-99 [facility] Comment on above: Performed By: #### L 100.0100, L500.2500 ####[facility] [address] [place], [address] Monocytes/100 WBC (Bld) 10.2 % High 0-10 [facility] Comment on above: Performed By: #### L 100.0100, L500.2500 ####[facility] [address] [place], [address] Neutrophils/100 WBC (Bld) 70.0 % Normal 47-70 [facility] Comment on above: Performed By: #### L 100.0100, L500.2500 ####[facility] [address] [place], [address] Nucleated RBC (Bld) [#/Vol] 0 10*3/uL Normal 0-5 [facility] Comment on above: Performed By: #### L 100.0100, L500.2500 ####[facility] [address] [place], [address] Platelet mean volume (Bld) [Entitic vol] 11.0 fL Normal 6.2-12.0 [facility] Comment on above: Performed By: #### L 100.0100, L500.2500 ####[facility] [address] [place], [address] Platelets (Bld) [#/Vol] 443 10*3/uL Normal 150-450 [facility] Comment on above: Performed By: #### L 100.0100, L500.2500 ####[facility] [address] [place], [address] RBC (Bld) [#/Vol] 4.01 10*6/uL Low 4.2-5.4 [facility] Comment on above: Performed By: #### L 100.0100, L500.2500 ####[facility] [address] [place], [address] RDW SD 48.5 fl High 35.1-43.9 [facility] Comment on above: Performed By: #### L 100.0100, L500.2500 ####[facility] [address] [place], [address] WBC (Bld) [#/Vol] 10.1 10*3/uL Normal 4.4-11.0 [facility] Comment on above: Performed By: #### L 100.0100, L500.2500 ####[facility] [address] [place], [address] Carbon dioxide measurementOr dered By: Soraya Mark on 04-10-2024 CO2 [Moles/Vol] 27.0 mmol/L 21.0-32.0 [facility] Cardiology Visit Reporton Cardiology Visit Report [facility] [address] [place] [address] OFFICE VISIT Date of Service: 04/10/24 MR#: [id number] Acct: [id number] Name: HILDA MULLINS Rep #: [id number] : 1945 Provider: MATILDE Chen Age/Sex: 78/F Location: [facility] [place] [facility] Status: Signed HPI HPI History of [...] mitral valve prolapse. She was referred to [facility] for mitral valve repair. Patient did undergo a mitral valve repair on March 24, 2024 at [facility]. Postoperatively she had atrial fibs with [...] 98 Intake Visit Reasons: S/P [facility] 03/24 Metal Fence Erector Required: No Is patient in pain?: No [...] Back p (more content not included)... Normal [facility] Chest PA and Lateralon 04-10 Chest PA and Lateral [facility] [address] [place], [place] [address] Chest PA and Lateral MR#: [id number] Acct: [id number] Name: HILDA MULLINS Rep #: [id number] : 1945 F 78 From: Sushma Huang PCP: Dr. Davey Valente, DO Status: REG CLI Study: Chest PA and Lateral Date of Exam: 04/10/24 Exam# [id number] Ordering Dr: Soraya Mark PA :[id number] INDICATION: post op OPEN HEART SURGERY 2 [...] CC: Dr. Davey Valente, DO; MATILDE Rapp Science Interpreter: Signed Normal [facility] Chloride measurementOrdered By: Soraya Mark on 04-10-2024 Chloride [Moles/Vol] 105 mmol/L 98-107 [facility] Eosinophil percentageOrdered By: Soraya Mark on 04-10-2024 Eosinophils/100 WBC (Bld) 3.3 % 0-5 [facility] Erythrocyte distribution wid th ratioOrdered By: Soraya Mark on 04-10-2024 Erythrocyte distribution width (RBC) [Ratio] 14.4 % 11.6-14.6 [facility] Erythrocyte distribution wid th standard deviationOrdered By: Soraya Mark on 04-10-2024 Erythrocyte distribution width (RBC) [Entitic vol] 48.5 fL High 35.1-43.9 [facility] Estimated glomerular filtrat ion rate (GFR) AmericanOrdered By: Soraya Mark on 04-10-2024 Estimated GFR (MDRD) Amer 55 mL/min Low >60 [facility] Comment on above: GFR Calc Glomerular filtration rate ( GFR) estimationOrdered By: Soraya Mark on 04-10-2024 Estimated GFR (MDRD) Non-Af Amer 46 mL/min Low >60 [facility] Comment on above: Non- GFR Calc Glucose measurementOrdered B y: Soraya Mark on 04-10-2024 Glucose [Mass/Vol] 88 mg/dL 74-106 [facility] Hematocrit Auto (Bld) [Volum e fraction]Ordered By: Soraya Mark on 04-10-2024 Hematocrit (Bld) [Volume fraction] 37.4 % 37-47 [facility] Hemoglobin measurementOrdere d By: Soraya Mark on 04-10-2024 Hemoglobin (Bld) [Mass/Vol] 11.5 g/dL Low 12.0-15.0 [facility] Immature granulocytes/100 WB C Auto (Bld)Ordered By: Soraya Mark on 04-10-2024 Immature granulocytes/100 WBC (Bld) 0.500 % 0.0-0.9 [facility] Comment on above: IG% - Immature Granu locytes (promyelocytes, myelocytes and metamyelocytes) > 1% indicates that a LEFT SHIFT is Present. Lymphocytes Auto (Unsp spec) [#/Vol]Ordered By: Soraya Mark on 04-10-2024 Lymphocytes (Bld) [#/Vol] 1.50 10*3/uL 0.83-4.51 [facility] Lymphocytes/100 WBC Auto (Un sp spec)Ordered By: Soraya Mark on 04-10-2024 Lymphocytes/100 WBC (Bld) 14.9 % Low 19-41 [facility] MCV (mean corpuscular volume ) determinationOrdered By: Soraya Mark on 04-10-2024 MCV (RBC) [Entitic vol] 93.3 fL 81-99 [facility] Mean corpuscular hemoglobin (MCH) determinationOrdered By: Soraya Mark on 04-10-2024 MCH (RBC) [Entitic mass] 28.7 pg 27.0-32.0 [facility] Mean corpuscular hemoglobin concentration (MCHC) determinationOrdered By: Soraya Mark on 04-10-2024 MCHC (RBC) [Mass/Vol] 30.7 g/dL Low 32-36 [facility] Mean platelet volume determi nationOrdered By: Soraya Mark on 04-10-2024 Platelet mean volume (Bld) [Entitic vol] 11.0 fL 6.2-12.0 [facility] Monocyte percentageOrdered B y: Soraya Mark on 04-10-2024 Monocytes/100 WBC (Bld) 10.2 % High 0-10 [facility] Neutrophil percentageOrdered By: Soraya Mark on 04-10-2024 Neutrophils/100 WBC (Bld) 70.0 % 47-70 [facility] Nucleated red blood cell per centageOrdered By: Soraya Mark on 04-10-2024 Nucleated RBC/100 WBC (Bld) [Ratio] 0 % 0-5 [facility] Platelet countOrdered By: Leidy Mark on 04-10-2024 Platelets (Bld) [#/Vol] 443 10*3/uL 150-450 [facility] Potassium measurementOrdered By: Soraya Mark on 04-10-2024 Potassium [Moles/Vol] 4.4 mmol/L 3.5-5.1 [facility] RBC Auto (Bld) [#/Vol]Ordere d By: Soraya Mark on 04-10-2024 RBC (Bld) [#/Vol] 4.01 10*6/uL Low 4.2-5.4 [facility] Serum anion gap measurementO rdered By: Soraya Mark on 04-10-2024 Anion gap [Moles/Vol] 7 mmol/L 5-15 [facility] Serum or plasma calcium mariely urement (mass/volume)Ordered By: Soraya Mark on 04-10-2024 Calcium [Mass/Vol] 9.7 mg/dL 8.5-10.1 [facility] Serum or plasma creatinine m easurement (mass/volume)Ordered By: Soraya Mark on 04-10-2024 Creatinine [Mass/Vol] 1.21 mg/dL High 0.55-1.02 [facility] Comment on above: The validity of the calculated GFR & GFRAA in patients over 70 years has not been determined. Clinical correlation is essential. Serum or plasma urea nitroge n measurement (mass/volume)Ordered By: Soraya Mark on 04-10-2024 Urea nitrogen [Mass/Vol] 20 mg/dL High 7-18 [facility] Sodium levelOrdered By: Vinnie Mark on 04-10-2024 Sodium [Moles/Vol] 139 mmol/L 136-145 [facility] White blood cell (WBC) count Ordered By: Soraya Mark on 04-10-2024 WBC (Bld) [#/Vol] 10.1 10*3/uL 4.4-11.0 [facility] CASE MANAGEMon 03-31-2024 CASE MANAGEM Normal [facility] CNDSon 03-31-2024 CNDS Normal [facility] NUTRITIONon 03-31-2024 NUTRITION Normal [facility] THERAPY NTon 03-31-2024 THERAPY NT Normal [facility] CBC panel Auto (Bld)on 03-30 Erythrocyte distribution width (RBC) [Ratio] 13.9 % Normal 11.5-15.0 [facility] Comment on above: Order Comment: Speci men Type: BLOOD SPECIMENOrdering Facility: [facility] Address: [address] [place] [address] Performed By: #### 5 8410-2 ####[facility] LABCLIA [id number] [place] [address] [place] Hematocrit (Bld) [Volume fraction] 35.0 % Low 36.0-46.0 [facility] Comment on above: Order Comment: Speci men Type: BLOOD SPECIMENOrdering Facility: [facility] Address: [address] [place] [address] Performed By: #### 5 8410-2 ####[facility] LABCLIA [id number] [place] [address] [place] Hemoglobin (Bld) [Mass/Vol] 11.3 g/dL Low 11.5-15.5 [facility] Comment on above: Order Comment: Speci men Type: BLOOD SPECIMENOrdering Facility: [facility] Address: [address] [place] [address] Performed By: #### 5 8410-2 ####[facility] LABCLIA [id number] [place] [address] [place] MCH (RBC) [Entitic mass] 29.4 pg Normal 26.0-34.0 [facility] Comment on above: Order Comment: Speci men Type: BLOOD SPECIMENOrdering Facility: [facility] Address: [address] [place] [address] Performed By: #### 5 8410-2 ####[facility] LABIA [id number] [place] [address] [place] MCHC (RBC) [Mass/Vol] 32.3 g/dL Normal 30.5-36.0 [facility] Comment on above: Order Comment: Speci men Type: BLOOD SPECIMENOrdering Facility: [facility] Address: [address] [place] [address] Performed By: #### 5 8410-2 ####[facility] [id number] [place] [address] [place] MCV (RBC) [Entitic vol] 90.9 fL Normal 80.0-100.0 [facility] Comment on above: Order Comment: Speci men Type: BLOOD SPECIMENOrdering Facility: [facility] Address: [address] [place] [address] Performed By: #### 5 8410-2 ####[facility] [id number] [place] [address] [place] Nucleated RBC (Bld) [#/Vol] 10*3/uL Normal <0.01 [facility] Comment on above: Order Comment: Speci men Type: BLOOD SPECIMENOrdering Facility: [facility] Address: [address] [place] [address] Performed By: #### 5 8410-2 ####[facility] [id number] [place] [address] [place] Platelet mean volume (Bld) [Entitic vol] 11.2 fL Normal 9.0-12.7 [facility] Comment on above: Order Comment: Speci men Type: BLOOD SPECIMENOrdering Facility: [facility] Address: [address] [place] [address] Performed By: #### 5 8410-2 ####[facility] LABCLIA [id number] [address] [address] [place] Platelets (Bld) [#/Vol] 217 10*3/uL Normal 150-400 [facility] Comment on above: Order Comment: Speci men Type: BLOOD SPECIMENOrdering Facility: [facility] Address: [address] [place] [address] Performed By: #### 5 8410-2 ####[facility] LABCLIA [id number] [place] [address] [place] RBC (Bld) [#/Vol] 3.85 10*6/uL Low 3.90-5.20 [facility] Comment on above: Order Comment: Speci men Type: BLOOD SPECIMENOrdering Facility: [facility] Address: [address] [place] [address] Performed By: #### 5 8410-2 ####[facility] LABIA [id number] [place] [address] [place] WBC (Bld) [#/Vol] 10.20 10*3/uL Normal 3.70-11.00 [facility] Comment on above: Order Comment: Speci men Type: BLOOD SPECIMENOrdering Facility: [facility] Address: [address] [place] [address] Performed By: #### 5 8410-2 ####[facility] LABIA [id number] [place] [id number] [place] Comprehensive metabolic 2000 panelon 03-30-2024 Albumin [Mass/Vol] 3.4 g/dL Low 3.9-4.9 [facility] Comment on above: Order Comment: Speci men Type: BLOOD SPECIMENOrdering Facility: [facility] Address: [address] [place] [address] Performed By: #### 2 4323-8 ####[facility] LABCLIA [id number] [place] [address] [place] ALP [Catalytic activity/Vol] 81 U/L Normal 34-123 [facility] Comment on above: Order Comment: Speci men Type: BLOOD SPECIMENOrdering Facility: [facility] Address: [address] [place] [address] Performed By: #### 2 4323-8 ####[facility] LABCLIA [id number] [place] [address] [place] ALT [Catalytic activity/Vol] 14 U/L Normal 7-38 [facility] Comment on above: Order Comment: Speci men Type: BLOOD SPECIMENOrdering Facility: [facility] Address: [address] [place] [address] Performed By: #### 2 4323-8 ####[facility] LABCLIA [id number] [place] [address] [place] Anion gap [Moles/Vol] 16 mmol/L High 8-15 [facility] Comment on above: Order Comment: Speci men Type: BLOOD SPECIMENOrdering Facility: [facility] Address: [address] [place] [address] Performed By: #### 2 4323-8 ####[facility] LABCLIA [id number] [place] [address] [place] AST [Catalytic activity/Vol] 25 U/L Normal 13-35 [facility] Comment on above: Order Comment: Speci men Type: BLOOD SPECIMENOrdering Facility: [facility] Address: [address] [place] [address] Performed By: #### 2 4323-8 ####[facility] LABCLIA [id number] [place] [address] [place] Bilirubin [Mass/Vol] 0.6 mg/dL Normal 0.2-1.3 [facility] Comment on above: Order Comment: Speci men Type: BLOOD SPECIMENOrdering Facility: [facility] Address: [address] [place] [address] Performed By: #### 2 4323-8 ####[facility] LABCLIA [id number] [address] [address] [place] Calcium [Mass/Vol] 9.4 mg/dL Normal 8.5-10.2 [facility] Comment on above: Order Comment: Speci men Type: BLOOD SPECIMENOrdering Facility: [facility] Address: [address] [place] [id number] Performed By: #### 2 4323-8 ####[facility] LABCLIA [id number] [place] [address] [place] Chloride [Moles/Vol] 100 mmol/L Normal 98-107 [facility] Comment on above: Order Comment: Speci men Type: BLOOD SPECIMENOrdering Facility: [facility] Address: [address] [place], [place] [address] Performed By: #### 2 4323-8 ####[facility] LABCLIA [id number] [place] [address] [place] CO2 [Moles/Vol] 23 mmol/L Normal 22-30 [facility] Comment on above: Order Comment: Speci men Type: BLOOD SPECIMENOrdering Facility: [facility] Address: [address] [place] [address] Performed By: #### 2 4323-8 ####[facility] LABCLIA [id number] [place] [id number] [place] Creatinine [Mass/Vol] 0.75 mg/dL Normal 0.58-0.96 [facility] Comment on above: Order Comment: Speci men Type: BLOOD SPECIMENOrdering Facility: [facility] Address: [address] [place] [id number] Performed By: #### 2 4323-8 ####[facility] LABCLIA [id number] [place] [address] [place] Creatinine and Glomerular filtration rate.predicted panel (S/P/Bld) 81 mL/min/1.73m??? Normal >=60 [facility] Comment on above: Order Comment: Trina trujillo Type: BLOOD SPECIMENOrdering Facility: [facility] Address: [address] [place] [address] Result Comment: Lexus mated Glomerular Filtration Rate [...] actual GFR. Performed By: #### 2 4323-8 ####[facility] LABCLIA [id number] [place] [address] [place] Glucose [Mass/Vol] 129 mg/dL High 74-99 [facility] Comment on above: Order Comment: Trina trujillo Type: BLOOD SPECIMENOrdering Facility: [facility] Address: [address] [place] [address] Result Comment: The [place] [employer] (ADA) provides guidance for cutoff [...] Standards of Medical Care in Diabetes 2016, [place] [employer]. Diabetes Care. 2016.39(Suppl 1). Performed By: #### 2 4323-8 ####[facility] LABCLIA [id number] [place] [address] [place] Potassium [Moles/Vol] 3.9 mmol/L Normal 3.7-5.1 [facility] Comment on above: Order Comment: Speci men Type: BLOOD SPECIMENOrdering Facility: [facility] Address: [address] [place] [address] Performed By: #### 2 4323-8 ####[facility] LABCLIA [id number] [address] [address] [place] Protein [Mass/Vol] 6.3 g/dL Normal 6.3-8.0 [facility] Comment on above: Order Comment: Speci men Type: BLOOD SPECIMENOrdering Facility: [facility] Address: [address] [place] [address] Performed By: #### 2 4323-8 ####[facility] LABCLIA [id number] [place] [address] [place] Sodium [Moles/Vol] 139 mmol/L Normal 136-144 [facility] Comment on above: Order Comment: Speci men Type: BLOOD SPECIMENOrdering Facility: [facility] Address: [address] [place] [address] Performed By: #### 2 4323-8 ####[facility] LABCLIA [id number] [place] [address] [place] Urea nitrogen [Mass/Vol] 17 mg/dL Normal 7-21 [facility] Comment on above: Order Comment: Speci men Type: BLOOD SPECIMENOrdering Facility: [facility] Address: [address] [place], [place] [address] Performed By: #### 2 4323-8 ####[facility] LABCLIA [id number] [place] [id number] [place] ECG COMPLETEon 03-30-2024 ECG COMPLETE Normal [facility] XR CHEST 2V FRONTAL/LATon XR CHEST 2V FRONTAL/LAT Normal [facility] C diff Tox gens Stl Ql JIN+p robeon 03-29-2024 C. difficile toxin genes JIN+probe Ql (Stl) Negative Normal Negative for C. difficile toxin by PCR [facility] Comment on above: Order Comment: Speci men Type: STOOL SPECIMENOrdering Facility: [facility] Address: [address] [place] [address] Performed By: #### 5 4067-4 ####[facility] LABIA [id number] [place] [address] [place] CBC panel Auto (Bld)on 03-29 Erythrocyte distribution width (RBC) [Ratio] 14.2 % Normal 11.5-15.0 [facility] Comment on above: Order Comment: Speci men Type: BLOOD SPECIMENOrdering Facility: [facility] Address: [address] [place] [address] Performed By: #### 5 8410-2 ####[facility] [id number] [place] [address] [place] Hematocrit (Bld) [Volume fraction] 33.0 % Low 36.0-46.0 [facility] Comment on above: Order Comment: Speci men Type: BLOOD SPECIMENOrdering Facility: [facility] Address: [address] [place] [address] Performed By: #### 5 8410-2 ####[facility] LABIA [id number] [place] [address] [place] Hemoglobin (Bld) [Mass/Vol] 10.5 g/dL Low 11.5-15.5 [facility] Comment on above: Order Comment: Speci men Type: BLOOD SPECIMENOrdering Facility: [facility] Address: [address] [place] [address] Performed By: #### 5 8410-2 ####[facility] LABIA [id number] [place] [address] [place] MCH (RBC) [Entitic mass] 28.4 pg Normal 26.0-34.0 [facility] Comment on above: Order Comment: Speci men Type: BLOOD SPECIMENOrdering Facility: [facility] Address: [address] [place] [address] Performed By: #### 5 8410-2 ####[facility] LABCLIA [id number] [place] [address] [place] MCHC (RBC) [Mass/Vol] 31.8 g/dL Normal 30.5-36.0 [facility] Comment on above: Order Comment: Speci men Type: BLOOD SPECIMENOrdering Facility: [facility] Address: [address] [place] [address] Performed By: #### 5 8410-2 ####[facility] LABCLIA [id number] [place] [address] [place] MCV (RBC) [Entitic vol] 89.2 fL Normal 80.0-100.0 [facility] Comment on above: Order Comment: Speci men Type: BLOOD SPECIMENOrdering Facility: [facility] Address: [address] [place] [address] Performed By: #### 5 8410-2 ####[facility] LABIA [id number] [place] [address] [place] Nucleated RBC (Bld) [#/Vol] 10*3/uL Normal <0.01 [facility] Comment on above: Order Comment: Speci men Type: BLOOD SPECIMENOrdering Facility: [facility] Address: [address] [place] [address] Performed By: #### 5 8410-2 ####[facility] LABCLIA [id number] [place] [address] [place] Platelet mean volume (Bld) [Entitic vol] 12.5 fL Normal 9.0-12.7 [facility] Comment on above: Order Comment: Speci men Type: BLOOD SPECIMENOrdering Facility: [facility] Address: [address] [place] [address] Performed By: #### 5 8410-2 ####[facility] LABCLIA [id number] [place] [address] [place] Platelets (Bld) [#/Vol] 184 10*3/uL Normal 150-400 [facility] Comment on above: Order Comment: Speci men Type: BLOOD SPECIMENOrdering Facility: [facility] Address: [address] [place] [address] Performed By: #### 5 8410-2 ####[facility] LABCLIA [id number] [place] [address] [place] RBC (Bld) [#/Vol] 3.70 10*6/uL Low 3.90-5.20 [facility] Comment on above: Order Comment: Speci men Type: BLOOD SPECIMENOrdering Facility: [facility] Address: [address] [place] [address] Performed By: #### 5 8410-2 ####[facility] LABIA [id number] [place] [address] [place] WBC (Bld) [#/Vol] 9.85 10*3/uL Normal 3.70-11.00 [facility] Comment on above: Order Comment: Speci men Type: BLOOD SPECIMENOrdering Facility: [facility] Address: [address] [place] [address] Performed By: #### 5 8410-2 ####[facility] LABCLIA [id number] [place] [address] [place] Comprehensive metabolic 2000 panelon 03-29-2024 Albumin [Mass/Vol] 3.3 g/dL Low 3.9-4.9 [facility] Comment on above: Order Comment: Speci men Type: BLOOD SPECIMENOrdering Facility: [facility] Address: [address] [place] [address] Performed By: #### 2 4323-8, 00639-8 ####[facility] LABCLIA [id number] [place] [address] [place] ALP [Catalytic activity/Vol] 83 U/L Normal 34-123 [facility] Comment on above: Order Comment: Speci men Type: BLOOD SPECIMENOrdering Facility: [facility] Address: [address] [place] [id number] Performed By: #### 2 4323-8, ####[facility] LABCLIA [id number] [place] [address] [place] ALT [Catalytic activity/Vol] 17 U/L Normal 7-38 [facility] Comment on above: Order Comment: Speci men Type: BLOOD SPECIMENOrdering Facility: [facility] Address: [address] [place] [address] Performed By: #### 2 4323-8, ####[facility] LABCLIA [id number] [place] [address] [place] Anion gap [Moles/Vol] 14 mmol/L Normal 8-15 [facility] Comment on above: Order Comment: Speci men Type: BLOOD SPECIMENOrdering Facility: [facility] Address: [address] [place] [address] Performed By: #### 2 4323-8, ####[facility] LABCLIA [id number] [place] [address] [place] AST [Catalytic activity/Vol] 26 U/L Normal 13-35 [facility] Comment on above: Order Comment: Speci men Type: BLOOD SPECIMENOrdering Facility: [facility] Address: [address] [place] [phone] Performed By: #### 2 4323-8, ####[facility] LABCLIA [id number] [place] [address] [place] Bilirubin [Mass/Vol] 0.5 mg/dL Normal 0.2-1.3 [facility] Comment on above: Order Comment: Speci men Type: BLOOD SPECIMENOrdering Facility: [facility] Address: [address] [place] [phone] Performed By: #### 2 4323-8, ####[facility] LABCLIA [id number] [place] [address] [place] Calcium [Mass/Vol] 9.1 mg/dL Normal 8.5-10.2 [facility] Comment on above: Order Comment: Speci men Type: BLOOD SPECIMENOrdering Facility: [facility] Address: [address] [place] [address] Performed By: #### 2 4322-8, ####[facility] LABCLIA [id number] [place] [address] [place] Chloride [Moles/Vol] 101 mmol/L Normal 98-107 [facility] Comment on above: Order Comment: Speci men Type: BLOOD SPECIMENOrdering Facility: [facility] Address: [address] [place] [address] Performed By: #### 2 432-8, ####[facility] LABCLIA [id number] [place] [address] [place] CO2 [Moles/Vol] 25 mmol/L Normal 22-30 [facility] Comment on above: Order Comment: Speci men Type: BLOOD SPECIMENOrdering Facility: [facility] Address: [address] [place] [address] Performed By: #### 2 8, ####[facility] LABCLIA [id number] [place] [id number] [place] Creatinine [Mass/Vol] 0.76 mg/dL Normal 0.58-0.96 [facility] Comment on above: Order Comment: Speci men Type: BLOOD SPECIMENOrdering Facility: [facility] Address: [address] [place] [address] Performed By: #### 2 432-8, ####[facility] LABCLIA [id number] [place] [address] [place] Creatinine and Glomerular filtration rate.predicted panel (S/P/Bld) 79 mL/min/1.73m??? Normal >=60 [facility] Comment on above: Order Comment: Specdez trujillo Type: BLOOD SPECIMENOrdering Facility: [facility] Address: [address] [place] [address] Result Comment: Lexus mated Glomerular Filtration Rate [...] actual GFR. Performed By: #### 2 4323-8, 31253-3 ####[facility] [id number] [place] [address] [place] Glucose [Mass/Vol] 95 mg/dL Normal 74-99 [facility] Comment on above: Order Comment: Trina trujillo Type: BLOOD SPECIMENOrdering Facility: [facility] Address: [address] [place] [address] Result Comment: The [place] [employer] (ADA) provides guidance for cutoff [...] Standards of Medical Care in Diabetes 2016, [place] [employer]. Diabetes Care. 2016.39(Suppl 1). Performed By: #### 2 4323-8, 45771-2 ####[facility] [id number] [place] [id number] [place] Potassium [Moles/Vol] 4.0 mmol/L Normal 3.7-5.1 [facility] Comment on above: Order Comment: Speci men Type: BLOOD SPECIMENOrdering Facility: [facility] Address: [address] [place] [address] Performed By: #### 2 4323-8, ####[facility] LABCLIA [id number] [place] [address] [place] Protein [Mass/Vol] 5.9 g/dL Low 6.3-8.0 [facility] Comment on above: Order Comment: Speci men Type: BLOOD SPECIMENOrdering Facility: [facility] Address: [address] [place] [address] Performed By: #### 2 4323-8, ####[facility] LABCLIA [id number] [place] [address] [place] Sodium [Moles/Vol] 140 mmol/L Normal 136-144 [facility] Comment on above: Order Comment: Speci men Type: BLOOD SPECIMENOrdering Facility: [facility] Address: [address] [place] [address] Performed By: #### 2 4323-8, ####[facility] LABCLIA [id number] [place] [address] [place] Urea nitrogen [Mass/Vol] 25 mg/dL High 7- [facility] Comment on above: Order Comment: Speci men Type: BLOOD SPECIMENOrdering Facility: [facility] Address: [address] [place] [address] Performed By: #### 2 4323-8, ####[facility] LABCLIA [id number] [place] [address] [place] [id number] 03-29-2024 ECG01 Normal [facility] Magnesium SerPl-mCncon 03-29 Magnesium [Mass/Vol] 2.1 mg/dL Normal 1.7-2.3 [facility] Comment on above: Order Comment: Speci men Type: BLOOD SPECIMENOrdering Facility: [facility] Address: [address] [place] [address] Performed By: #### 2 4323-8, 76656-4 ####[facility] LABCLIA [id number] [place] [address] [place] XR ABDOMEN 1V SUPINEon 03-29 XR ABDOMEN 1V SUPINE Normal [facility] CASE MANAGEMon 03-28-2024 CASE MANAGEM Normal [facility] CBC panel Auto (Bld)on 03-28 Erythrocyte distribution width (RBC) [Ratio] 14.3 % Normal 11.5-15.0 [facility] Comment on above: Order Comment: Speci men Type: BLOOD SPECIMENOrdering Facility: [facility] Address: [address] [place] [address] Performed By: #### 5 8410-2 ####[facility] LABCLIA [id number] [place] [address] [place] Hematocrit (Bld) [Volume fraction] 30.8 % Low 36.0-46.0 [facility] Comment on above: Order Comment: Speci men Type: BLOOD SPECIMENOrdering Facility: [facility] Address: [address] [place] [address] Performed By: #### 5 8410-2 ####[facility] LABCLIA [id number] [place] [id number] [place] Hemoglobin (Bld) [Mass/Vol] 10.0 g/dL Low 11.5-15.5 [facility] Comment on above: Order Comment: Speci men Type: BLOOD SPECIMENOrdering Facility: [facility] Address: [address] [place] [address] Performed By: #### 5 8410-2 ####[facility] LABCLIA [id number] [place] [address] [place] MCH (RBC) [Entitic mass] 29.2 pg Normal 26.0-34.0 [facility] Comment on above: Order Comment: Speci men Type: BLOOD SPECIMENOrdering Facility: [facility] Address: [address] [place] [address] Performed By: #### 5 8410-2 ####[facility] LABIA [id number] [place] [address] [place] MCHC (RBC) [Mass/Vol] 32.5 g/dL Normal 30.5-36.0 [facility] Comment on above: Order Comment: Speci men Type: BLOOD SPECIMENOrdering Facility: [facility] Address: [address] [place] [address] Performed By: #### 5 8410-2 ####[facility] LABIA [id number] [place] [address] [place] MCV (RBC) [Entitic vol] 89.8 fL Normal 80.0-100.0 [facility] Comment on above: Order Comment: Speci men Type: BLOOD SPECIMENOrdering Facility: [facility] Address: [address] [place] [address] Performed By: #### 5 8410-2 ####[facility] LABIA [id number] [place] [address] [place] Nucleated RBC (Bld) [#/Vol] 10*3/uL Normal <0.01 [facility] Comment on above: Order Comment: Speci men Type: BLOOD SPECIMENOrdering Facility: [facility] Address: [address] [place] [address] Performed By: #### 5 8410-2 ####[facility] LABCLIA [id number] [place] [address] [place] Platelet mean volume (Bld) [Entitic vol] 12.8 fL High 9.0-12.7 [facility] Comment on above: Order Comment: Speci men Type: BLOOD SPECIMENOrdering Facility: [facility] Address: [address] [place] [address] Performed By: #### 5 8410-2 ####[facility] LABCLIA [id number] [place] [address] [place] Platelets (Bld) [#/Vol] 156 10*3/uL Normal 150-400 [facility] Comment on above: Order Comment: Speci men Type: BLOOD SPECIMENOrdering Facility: [facility] Address: [address] [place] [address] Performed By: #### 5 8410-2 ####[facility] LABCLIA [id number] [place] [address] [place] RBC (Bld) [#/Vol] 3.43 10*6/uL Low 3.90-5.20 [facility] Comment on above: Order Comment: Speci men Type: BLOOD SPECIMENOrdering Facility: [facility] Address: [address] [place] [address] Performed By: #### 5 8410-2 ####[facility] LABCLIA [id number] [place] [address] [place] WBC (Bld) [#/Vol] 11.43 10*3/uL High 3.70-11.00 [facility] Comment on above: Order Comment: Speci men Type: BLOOD SPECIMENOrdering Facility: [facility] Address: [address] [place] [address] Performed By: #### 5 8410-2 ####[facility] LABCLIA [id number] [place] [address] [place] Comprehensive metabolic 2000 panelon 03-28-2024 Albumin [Mass/Vol] 3.4 g/dL Low 3.9-4.9 [facility] Comment on above: Order Comment: Speci men Type: BLOOD SPECIMENOrdering Facility: [facility] Address: [address] [place] [address] Performed By: #### 2 4323-8 ####[facility] LABCLIA [id number] [place] [address] [place] ALP [Catalytic activity/Vol] 82 U/L Normal 34-123 [facility] Comment on above: Order Comment: Speci men Type: BLOOD SPECIMENOrdering Facility: [facility] Address: [address] [place] [address] Performed By: #### 2 4323-8 ####[facility] LABCLIA [id number] [place] [address] [place] ALT [Catalytic activity/Vol] 19 U/L Normal 7-38 [facility] Comment on above: Order Comment: Speci men Type: BLOOD SPECIMENOrdering Facility: [facility] Address: [address] [place] [address] Performed By: #### 2 4323-8 ####[facility] LABCLIA [id number] [place] [address] [place] Anion gap [Moles/Vol] 13 mmol/L Normal 8-15 [facility] Comment on above: Order Comment: Speci men Type: BLOOD SPECIMENOrdering Facility: [facility] Address: [address] [place] [address] Performed By: #### 2 4323-8 ####[facility] LABCLIA [id number] [place] [address] [place] AST [Catalytic activity/Vol] 28 U/L Normal 13-35 [facility] Comment on above: Order Comment: Speci men Type: BLOOD SPECIMENOrdering Facility: [facility] Address: [address] [place] [address] Performed By: #### 2 4323-8 ####[facility] LABCLIA [id number] [place] [address] [place] Bilirubin [Mass/Vol] 0.5 mg/dL Normal 0.2-1.3 [facility] Comment on above: Order Comment: Speci men Type: BLOOD SPECIMENOrdering Facility: [facility] Address: [address] [place] [address] Performed By: #### 2 4323-8 ####[facility] LABCLIA [id number] [facility] [place] [address] [place] Calcium [Mass/Vol] 8.9 mg/dL Normal 8.5-10.2 [facility] Comment on above: Order Comment: Speci men Type: BLOOD SPECIMENOrdering Facility: [facility] Address: [address] [place] [address] Performed By: #### 2 4323-8 ####[facility] LABCLIA [id number] [place] [address] [place] Chloride [Moles/Vol] 100 mmol/L Normal 98-107 [facility] Comment on above: Order Comment: Speci men Type: BLOOD SPECIMENOrdering Facility: [facility] Address: [address] [place] [address] Performed By: #### 2 4323-8 ####[facility] LABCLIA [id number] [place] [address] [place] CO2 [Moles/Vol] 26 mmol/L Normal 22-30 [facility] Comment on above: Order Comment: Speci men Type: BLOOD SPECIMENOrdering Facility: [facility] Address: [address] [place] [id number] Performed By: #### 2 4323-8 ####[facility] LABCLIA [id number] [place] [id number] [place] Creatinine [Mass/Vol] 0.85 mg/dL Normal 0.58-0.96 [facility] Comment on above: Order Comment: Speci men Type: BLOOD SPECIMENOrdering Facility: [facility] Address: [address] [place] [address] Performed By: #### 2 4323-8 ####[facility] LABCLIA [id number] [place] [address] [place] Creatinine and Glomerular filtration rate.predicted panel (S/P/Bld) 69 mL/min/1.73m??? Normal >=60 [facility] Comment on above: Order Comment: Trina trujillo Type: BLOOD SPECIMENOrdering Facility: [facility] Address: [address] [place] [address] Result Comment: Lexus mated Glomerular Filtration Rate [...] actual GFR. Performed By: #### 2 4323-8 ####[facility] LABCLIA [id number] [place] [address] [place] Glucose [Mass/Vol] 114 mg/dL High 74-99 [facility] Comment on above: Order Comment: Trina trujillo Type: BLOOD SPECIMENOrdering Facility: [facility] Address: [address] [place] [address] Result Comment: The [place] [employer] (ADA) provides guidance for cutoff [...] Standards of Medical Care in Diabetes 2016, [place] [employer]. Diabetes Care. 2016.39(Suppl 1). Performed By: #### 2 4323-8 ####[facility] LABCLIA [id number] [place] [address] [place] Potassium [Moles/Vol] 3.8 mmol/L Normal 3.7-5.1 [facility] Comment on above: Order Comment: Speci men Type: BLOOD SPECIMENOrdering Facility: [facility] Address: [address] [place] [address] Performed By: #### 2 4323-8 ####[facility] LABCLIA [id number] [place] [address] [place] Protein [Mass/Vol] 5.7 g/dL Low 6.3-8.0 [facility] Comment on above: Order Comment: Speci men Type: BLOOD SPECIMENOrdering Facility: [facility] Address: [address] [place] [address] Performed By: #### 2 4323-8 ####[facility] LABCLIA [id number] [place] [address] [place] Sodium [Moles/Vol] 139 mmol/L Normal 136-144 [facility] Comment on above: Order Comment: Speci men Type: BLOOD SPECIMENOrdering Facility: [facility] Address: [address] [place] [address] Performed By: #### 2 4323-8 ####[facility] LABCLIA [id number] [place] [address] [place] Urea nitrogen [Mass/Vol] 27 mg/dL High 7-21 [facility] Comment on above: Order Comment: Speci men Type: BLOOD SPECIMENOrdering Facility: [facility] Address: [address] [place], [place] [id number] Performed By: #### 2 4323-8 ####[facility] LABCLIA [id number] [place] [id number] [place] ECG COMPLETEon 03-28-2024 ECG COMPLETE Normal [facility] THERAPY NTon 03-28-2024 THERAPY NT Normal [facility] THERAPY NT Normal [facility] XR CHEST 1V FRONTAL PORTon 1 05-29-2023 XR CHEST 1V FRONTAL PORT Normal [facility] CBC panel Auto (Bld)on 03-27 Erythrocyte distribution width (RBC) [Ratio] 14.1 % Normal 11.5-15.0 [facility] Comment on above: Order Comment: Speci men Type: BLOOD SPECIMENOrdering Facility: [facility] Address: [address] [place] [address] Performed By: #### 5 8410-2 ####[facility] LABIA [id number] [place] [address] [place] Hematocrit (Bld) [Volume fraction] 31.2 % Low 36.0-46.0 [facility] Comment on above: Order Comment: Speci men Type: BLOOD SPECIMENOrdering Facility: [facility] Address: [address] [place] [address] Performed By: #### 5 8410-2 ####[facility] LABIA [id number] [place] [address] [place] Hemoglobin (Bld) [Mass/Vol] 10.3 g/dL Low 11.5-15.5 [facility] Comment on above: Order Comment: Speci men Type: BLOOD SPECIMENOrdering Facility: [facility] Address: [address] [place] [address] Performed By: #### 5 8410-2 ####[facility] LABIA [id number] [place] [address] [place] MCH (RBC) [Entitic mass] 29.6 pg Normal 26.0-34.0 [facility] Comment on above: Order Comment: Speci men Type: BLOOD SPECIMENOrdering Facility: [facility] Address: [address] [place] [address] Performed By: #### 5 8410-2 ####[facility] LABIA [id number] [place] [address] [place] MCHC (RBC) [Mass/Vol] 33.0 g/dL Normal 30.5-36.0 [facility] Comment on above: Order Comment: Speci men Type: BLOOD SPECIMENOrdering Facility: [facility] Address: [address] [place] [address] Performed By: #### 5 8410-2 ####[facility] LABCLIA [id number] [place] [address] [place] MCV (RBC) [Entitic vol] 89.7 fL Normal 80.0-100.0 [facility] Comment on above: Order Comment: Speci men Type: BLOOD SPECIMENOrdering Facility: [facility] Address: [address] [place] [address] Performed By: #### 5 8410-2 ####[facility] LABCLIA [id number] [place] [address] [place] Nucleated RBC (Bld) [#/Vol] 10*3/uL Normal <0.01 [facility] Comment on above: Order Comment: Speci men Type: BLOOD SPECIMENOrdering Facility: [facility] Address: [address] [place] [address] Performed By: #### 5 8410-2 ####[facility] LABCLIA [id number] [place] [address] [place] Platelet mean volume (Bld) [Entitic vol] 13.4 fL High 9.0-12.7 [facility] Comment on above: Order Comment: Speci men Type: BLOOD SPECIMENOrdering Facility: [facility] Address: [address] [place] [address] Performed By: #### 5 8410-2 ####[facility] LABCLIA [id number] [place] [address] [place] Platelets (Bld) [#/Vol] 121 10*3/uL Low 150-400 [facility] Comment on above: Order Comment: Speci men Type: BLOOD SPECIMENOrdering Facility: [facility] Address: [address] [place] [address] Performed By: #### 5 8410-2 ####[facility] LABIA [id number] [place] [address] [place] RBC (Bld) [#/Vol] 3.48 10*6/uL Low 3.90-5.20 [facility] Comment on above: Order Comment: Speci men Type: BLOOD SPECIMENOrdering Facility: [facility] Address: [address] [place] [address] Performed By: #### 5 8410-2 ####[facility] LABIA [id number] [place] [address] [place] WBC (Bld) [#/Vol] 15.46 10*3/uL High 3.70-11.00 [facility] Comment on above: Order Comment: Speci men Type: BLOOD SPECIMENOrdering Facility: [facility] Address: [address] [place] [address] Performed By: #### 5 8410-2 ####[facility] [id number] [place] [address] [place] Comprehensive metabolic 2000 panelon 03-27-2024 Albumin [Mass/Vol] 3.4 g/dL Low 3.9-4.9 [facility] Comment on above: Order Comment: Speci men Type: BLOOD SPECIMENOrdering Facility: [facility] Address: [address] [place] [address] Performed By: #### 2 4323-8 ####[facility] [id number] [place] [address] [place] ALP [Catalytic activity/Vol] 91 U/L Normal 34-123 [facility] Comment on above: Order Comment: Speci men Type: BLOOD SPECIMENOrdering Facility: [facility] Address: [address] [place] [address] Performed By: #### 2 4323-8 ####[facility] LABCLIA [id number] [place] [id number] [place] ALT [Catalytic activity/Vol] 31 U/L Normal 7-38 [facility] Comment on above: Order Comment: Speci men Type: BLOOD SPECIMENOrdering Facility: [facility] Address: [address] [place] [address] Performed By: #### 2 4323-8 ####[facility] LABCLIA [id number] [place] [address] [place] Anion gap [Moles/Vol] 15 mmol/L Normal 8-15 [facility] Comment on above: Order Comment: Speci men Type: BLOOD SPECIMENOrdering Facility: [facility] Address: [address] [place] [address] Performed By: #### 2 4323-8 ####[facility] LABIA [id number] [place] [address] [place] AST [Catalytic activity/Vol] 68 U/L High 13-35 [facility] Comment on above: Order Comment: Speci men Type: BLOOD SPECIMENOrdering Facility: [facility] Address: [address] [place] [address] Result Comment: Resu lts may be falsely increased due to interference from hemolysis. Suggest reorder as clinically indicated. Performed By: #### 2 4323-8 ####[facility] LABCLIA [id number] [place] [address] [place] Bilirubin [Mass/Vol] 0.4 mg/dL Normal 0.2-1.3 [facility] Comment on above: Order Comment: Speci men Type: BLOOD SPECIMENOrdering Facility: [facility] Address: [address] [place] [address] Performed By: #### 2 4323-8 ####[facility] LABIA [id number] [place] [address] [place] Calcium [Mass/Vol] 8.7 mg/dL Normal 8.5-10.2 [facility] Comment on above: Order Comment: Speci men Type: BLOOD SPECIMENOrdering Facility: [facility] Address: [address] [place] [address] Performed By: #### 2 4323-8 ####[facility] LABCLIA [id number] [place] [address] [place] Chloride [Moles/Vol] 94 mmol/L Low 98-107 [facility] Comment on above: Order Comment: Speci men Type: BLOOD SPECIMENOrdering Facility: [facility] Address: [address] [place] [address] Performed By: #### 2 4323-8 ####[facility] LABCLIA [id number] [place] [address] [place] CO2 [Moles/Vol] 21 mmol/L Low 22-30 [facility] Comment on above: Order Comment: Speci men Type: BLOOD SPECIMENOrdering Facility: [facility] Address: [address] [place] [address] Performed By: #### 2 4323-8 ####[facility] LABCLIA [id number] [place] [address] [place] Creatinine [Mass/Vol] 0.72 mg/dL Normal 0.58-0.96 [facility] Comment on above: Order Comment: Speci men Type: BLOOD SPECIMENOrdering Facility: [facility] Address: [address] [place] [address] Performed By: #### 2 4323-8 ####[facility] LABCLIA [id number] [place] [address] [place] Creatinine and Glomerular filtration rate.predicted panel (S/P/Bld) 85 mL/min/1.73m??? Normal >=60 [facility] Comment on above: Order Comment: Speci men Type: BLOOD SPECIMENOrdering Facility: [facility] Address: [address] [place] [address] Result Comment: Lex[place] mated Glomerular Filtration Rate [...] actual GFR. Performed By: #### 2 4323-8 ####[facility] LABCLIA [id number] [place] [address] [place] Glucose [Mass/Vol] 263 mg/dL High 74-99 [facility] Comment on above: Order Comment: Speci men Type: BLOOD SPECIMENOrdering Facility: [facility] Address: [address] [place] [address] Result Comment: The [place] [employer] (ADA) provides guidance for cutoff [...] Standards of Medical Care in Diabetes 2016, [place] [employer]. Diabetes Care. 2016.39(Suppl 1). Performed By: #### 2 4323-8 ####[facility] LABCLIA [id number] [place] [id number] [place] Potassium [Moles/Vol] 4.4 mmol/L Normal 3.7-5.1 [facility] Comment on above: Order Comment: Speci men Type: BLOOD SPECIMENOrdering Facility: [facility] Address: [address] [place] [address] Performed By: #### 2 4323-8 ####[facility] LABCLIA [id number] [place] [address] [place] Protein [Mass/Vol] 6.0 g/dL Low 6.3-8.0 [facility] Comment on above: Order Comment: Speci men Type: BLOOD SPECIMENOrdering Facility: [facility] Address: [address] [place] [address] Performed By: #### 2 4323-8 ####[facility] LABCLIA [id number] [place] [address] [place] Sodium [Moles/Vol] 130 mmol/L Low 136-144 [facility] Comment on above: Order Comment: Speci men Type: BLOOD SPECIMENOrdering Facility: [facility] Address: [address] [place] [address] Performed By: #### 2 4323-8 ####[facility] LABCLIA [id number] [place] [address] [place] Urea nitrogen [Mass/Vol] 20 mg/dL Normal 7-21 [facility] Comment on above: Order Comment: Speci men Type: BLOOD SPECIMENOrdering Facility: [facility] Address: [address] [place] [address] Performed By: #### 2 4323-8 ####[facility] LABIA [id number] [place] [address] [place] [id number] 03-27-2024 ECG01 Normal [facility] ALLIED HEALTHon 03-26-2024 ALLIED HEALTH Normal [facility] CASE MGT INIT ASSESon 2023 CASE MGT INIT ASSES Normal [facility] CBC panel Auto (Bld)on 03-26 Erythrocyte distribution width (RBC) [Ratio] 14.2 % Normal 11.5-15.0 [facility] Comment on above: Order Comment: Speci men Type: BLOOD SPECIMENOrdering Facility: [facility] Address: [address] [place] [address] Performed By: #### 5 8410-2 ####[facility] LABIA [id number] [place] [address] [place] Hematocrit (Bld) [Volume fraction] 32.2 % Low 36.0-46.0 [facility] Comment on above: Order Comment: Speci men Type: BLOOD SPECIMENOrdering Facility: [facility] [facility] Address: [address] [place] [address] Performed By: #### 5 8410-2 ####[facility] LABIA [id number] [place] [address] [place] Hemoglobin (Bld) [Mass/Vol] 10.3 g/dL Low 11.5-15.5 [facility] Comment on above: Order Comment: Speci men Type: BLOOD SPECIMENOrdering Facility: [facility] Address: [address] [place] [address] Performed By: #### 5 8410-2 ####[facility] LABIA [id number] [place] [address] [place] MCH (RBC) [Entitic mass] 28.4 pg Normal 26.0-34.0 [facility] Comment on above: Order Comment: Speci men Type: BLOOD SPECIMENOrdering Facility: [facility] Address: [address] [place] [address] Performed By: #### 5 8410-2 ####[facility] LABIA [id number] [place] [address] [place] MCHC (RBC) [Mass/Vol] 32.0 g/dL Normal 30.5-36.0 [facility] Comment on above: Order Comment: Speci men Type: BLOOD SPECIMENOrdering Facility: [facility] Address: [address] [place] [address] Performed By: #### 5 8410-2 ####[facility] LABIA [id number] [place] [address] [place] MCV (RBC) [Entitic vol] 88.7 fL Normal 80.0-100.0 [facility] Comment on above: Order Comment: Speci men Type: BLOOD SPECIMENOrdering Facility: [facility] Address: [address] [place] [address] Performed By: #### 5 8410-2 ####[facility] LABCLIA [id number] [place] [address] [place] Nucleated RBC (Bld) [#/Vol] 10*3/uL Normal <0.01 [facility] Comment on above: Order Comment: Speci men Type: BLOOD SPECIMENOrdering Facility: [facility] Address: [address] [place] [address] Performed By: #### 5 8410-2 ####[facility] LABCLIA [id number] [place] [address] [place] Platelet mean volume (Bld) [Entitic vol] 13.2 fL High 9.0-12.7 [facility] Comment on above: Order Comment: Speci men Type: BLOOD SPECIMENOrdering Facility: [facility] Address: [address] [place] [address] Performed By: #### 5 8410-2 ####[facility] LABIA [id number] [place] [address] [place] Platelets (Bld) [#/Vol] 129 10*3/uL Low 150-400 [facility] Comment on above: Order Comment: Speci men Type: BLOOD SPECIMENOrdering Facility: [facility] Address: [address] [place] [address] Performed By: #### 5 8410-2 ####[facility] LABCLIA [id number] [place] [address] [place] RBC (Bld) [#/Vol] 3.63 10*6/uL Low 3.90-5.20 [facility] Comment on above: Order Comment: Speci men Type: BLOOD SPECIMENOrdering Facility: [facility] Address: [address] [place] [address] Performed By: #### 5 8410-2 ####[facility] LABIA [id number] [place] [address] [place] WBC (Bld) [#/Vol] 16.07 10*3/uL High 3.70-11.00 [facility] Comment on above: Order Comment: Speci men Type: BLOOD SPECIMENOrdering Facility: [facility] Address: [address] [place] [address] Performed By: #### 5 8410-2 ####[facility] LABIA [id number] [place] [address] [place] Erythrocyte distribution width (RBC) [Ratio] 14.3 % Normal 11.5-15.0 [facility] Comment on above: Order Comment: Speci men Type: BLOOD SPECIMENOrdering Facility: [facility] Address: [address] [place] [address] Performed By: #### 5 8410-2 ####[facility] LABIA [id number] [place] [address] [place] Hematocrit (Bld) [Volume fraction] 31.2 % Low 36.0-46.0 [facility] Comment on above: Order Comment: Speci men Type: BLOOD SPECIMENOrdering Facility: [facility] Address: [address] [place] [address] Performed By: #### 5 8410-2 ####[facility] LABIA [id number] [place] [address] [place] Hemoglobin (Bld) [Mass/Vol] 10.0 g/dL Low 11.5-15.5 [facility] Comment on above: Order Comment: Speci men Type: BLOOD SPECIMENOrdering Facility: [facility] Address: [address] [place] [address] Performed By: #### 5 8410-2 ####[facility] LABIA [id number] [place] [address] [place] MCH (RBC) [Entitic mass] 29.5 pg Normal 26.0-34.0 [facility] Comment on above: Order Comment: Speci men Type: BLOOD SPECIMENOrdering Facility: [facility] Address: [address] [place] [address] Performed By: #### 5 8410-2 ####[facility] [id number] [place] [address] [place] MCHC (RBC) [Mass/Vol] 32.1 g/dL Normal 30.5-36.0 [facility] Comment on above: Order Comment: Speci men Type: BLOOD SPECIMENOrdering Facility: [facility] Address: [address] [place] [address] Performed By: #### 5 8410-2 ####[facility] [id number] [place] [address] [place] MCV (RBC) [Entitic vol] 92.0 fL Normal 80.0-100.0 [facility] Comment on above: Order Comment: Speci men Type: BLOOD SPECIMENOrdering Facility: [facility] Address: [address] [place] [address] Performed By: #### 5 8410-2 ####[facility] [id number] [place] [address] [place] Nucleated RBC (Bld) [#/Vol] 10*3/uL Normal <0.01 [facility] Comment on above: Order Comment: Speci men Type: BLOOD SPECIMENOrdering Facility: [facility] Address: [address] [place] [address] Performed By: #### 5 8410-2 ####[facility] [id number] [place] [address] [place] Platelet mean volume (Bld) [Entitic vol] 13.3 fL High 9.0-12.7 [facility] Comment on above: Order Comment: Speci men Type: BLOOD SPECIMENOrdering Facility: [facility] Address: [address] [place] [address] Performed By: #### 5 8410-2 ####[facility] LABCLIA [id number] [place] [address] [place] Platelets (Bld) [#/Vol] 101 10*3/uL Low 150-400 [facility] Comment on above: Order Comment: Speci men Type: BLOOD SPECIMENOrdering Facility: [facility] Address: [address] [place] [address] Performed By: #### 5 8410-2 ####[facility] LABCLIA [id number] [place] [address] [place] RBC (Bld) [#/Vol] 3.39 10*6/uL Low 3.90-5.20 [facility] Comment on above: Order Comment: Speci men Type: BLOOD SPECIMENOrdering Facility: [facility] Address: [address] [place] [address] Performed By: #### 5 8410-2 ####[facility] LABCLIA [id number] [place] [address] [place] WBC (Bld) [#/Vol] 14.81 10*3/uL High 3.70-11.00 [facility] Comment on above: Order Comment: Speci men Type: BLOOD SPECIMENOrdering Facility: [facility] Address: [address] [place] [address] Performed By: #### 5 8410-2 ####[facility] LABCLIA [id number] [place] [id number] [place] Comprehensive metabolic 2000 panelon 03-26-2024 Albumin [Mass/Vol] 3.8 g/dL Low 3.9-4.9 [facility] Comment on above: Order Comment: Speci men Type: BLOOD SPECIMENOrdering Facility: [facility] Address: [address] [place] [address] Performed By: #### 2 4323-8, , 2776-04 ####[facility] LABCLIA [id number] [place] [id number] [place] ALP [Catalytic activity/Vol] 95 U/L Normal 34-123 [facility] Comment on above: Order Comment: Speci men Type: BLOOD SPECIMENOrdering Facility: [facility] Address: [address] [place] [address] Performed By: #### 2 4323-8, , 2776-04 ####[facility] LABIA [id number] [place] [address] [place] ALT [Catalytic activity/Vol] 38 U/L Normal 7-38 [facility] Comment on above: Order Comment: Speci men Type: BLOOD SPECIMENOrdering Facility: [facility] Address: [address] [place] [address] Performed By: #### 2 4323-8, , 2776-04 ####[facility] LABIA [id number] [place] [address] [place] Anion gap [Moles/Vol] 11 mmol/L Normal 8-15 [facility] Comment on above: Order Comment: Speci men Type: BLOOD SPECIMENOrdering Facility: [facility] Address: [address] [place] [address] Performed By: #### 2 4323-8, , 2776-04 ####[facility] LABIA [id number] [place] [address] [place] AST [Catalytic activity/Vol] 77 U/L High 13-35 [facility] Comment on above: Order Comment: Speci men Type: BLOOD SPECIMENOrdering Facility: [facility] Address: [address] [place] [address] Performed By: #### 2 4323-8, 96680-0, 2776-04 ####[facility] LABCLIA [id number] [address] [address] [place] Bilirubin [Mass/Vol] 0.6 mg/dL Normal 0.2-1.3 [facility] Comment on above: Order Comment: Speci men Type: BLOOD SPECIMENOrdering Facility: [facility] Address: [address] [place] [address] Performed By: #### 2 4323-8, , 2776-04 ####[facility] LABCLIA [id number] [place] [address] [place] Calcium [Mass/Vol] 9.2 mg/dL Normal 8.5-10.2 [facility] Comment on above: Order Comment: Speci men Type: BLOOD SPECIMENOrdering Facility: [facility] Address: [address] [place] [address] Performed By: #### 2 4323-8, , 2776-04 ####[facility] LABCLIA [id number] [place] [address] [place] Chloride [Moles/Vol] 99 mmol/L Normal 98-107 [facility] Comment on above: Order Comment: Speci men Type: BLOOD SPECIMENOrdering Facility: [facility] Address: [address] [place] [address] Performed By: #### 2 4323-8, , 2776-04 ####[facility] LABCLIA [id number] [place] [address] [place] CO2 [Moles/Vol] 24 mmol/L Normal 22-30 [facility] Comment on above: Order Comment: Speci men Type: BLOOD SPECIMENOrdering Facility: [facility] Address: [address] [place] [address] Performed By: #### 2 4323-8, , 2776-04 ####[facility] LABCLIA [id number] [place] [id number] [place] Creatinine [Mass/Vol] 0.83 mg/dL Normal 0.58-0.96 [facility] Comment on above: Order Comment: Speci men Type: BLOOD SPECIMENOrdering Facility: [facility] Address: [address] [place] [address] Performed By: #### 2 4323-8, , 2776-04 ####[facility] LABIA [id number] [place] [address] [place] Creatinine and Glomerular filtration rate.predicted panel (S/P/Bld) 71 mL/min/1.73m??? Normal >=60 [facility] Comment on above: Order Comment: Trina trujillo Type: BLOOD SPECIMENOrdering Facility: [facility] Address: [address] [place] [address] Result Comment: Lexus mated Glomerular Filtration Rate [...] Performed By: #### 2 4323-8, , 2776-04 ####[facility] LABIA [id number] [place] [id number] [place] Glucose [Mass/Vol] 170 mg/dL High 74-99 [facility] Comment on above: Order Comment: Speci men Type: BLOOD SPECIMENOrdering Facility: [facility] Address: [address] [place] [address] Result Comment: The [place] [employer] (ADA) provides guidance for cutoff [...] Standards of Medical Care in Diabetes 2016, [place] [employer]. Diabetes Care. 2016.39(Suppl 1). Performed By: #### 2 4323-8, , 2776-04 ####[facility] LABCLIA [id number] [address] [address] [place] Potassium [Moles/Vol] 3.9 mmol/L Normal 3.7-5.1 [facility] Comment on above: Order Comment: Speci men Type: BLOOD SPECIMENOrdering Facility: [facility] Address: [address] [place] [address] Performed By: #### 2 4323-8, , 2776-04 ####[facility] LABCLIA [id number] [place] [address] [place] Protein [Mass/Vol] 6.1 g/dL Low 6.3-8.0 [facility] Comment on above: Order Comment: Speci men Type: BLOOD SPECIMENOrdering Facility: [facility] Address: [address] [place] [address] Performed By: #### 2 4323-8, , 2776-04 ####[facility] LABCLIA [id number] [address] [address] [place] Sodium [Moles/Vol] 134 mmol/L Low 136-144 [facility] Comment on above: Order Comment: Speci men Type: BLOOD SPECIMENOrdering Facility: [facility] Address: [address] [place] [address] Performed By: #### 2 4323-8, , 2776-04 ####[facility] LABCLIA [id number] [address] [address] [place] Urea nitrogen [Mass/Vol] 24 mg/dL High 7-21 [facility] Comment on above: Order Comment: Speci men Type: BLOOD SPECIMENOrdering Facility: [facility] Address: [address] [place] [address] Performed By: #### 2 4323-8, 13718-3, 2777-1 ####[facility] LABCLIA [id number] [place] [address] [place] Albumin [Mass/Vol] 3.4 g/dL Low 3.9-4.9 [facility] Comment on above: Order Comment: Speci men Type: BLOOD SPECIMENOrdering Facility: [facility] Address: [address] [place] [address] Performed By: #### 2 4323-8 ####[facility] LABCLIA [id number] [place] [address] [place] ALP [Catalytic activity/Vol] 80 U/L Normal 34-123 [facility] Comment on above: Order Comment: Speci men Type: BLOOD SPECIMENOrdering Facility: [facility] Address: [address] [place] [address] Performed By: #### 2 4323-8 ####[facility] LABCLIA [id number] [place] [address] [place] ALT [Catalytic activity/Vol] 43 U/L High 7-38 [facility] Comment on above: Order Comment: Speci men Type: BLOOD SPECIMENOrdering Facility: [facility] Address: [address] [place], [place] [address] Performed By: #### 2 4323-8 ####[facility] LABCLIA [id number] [address] [address] [place] Anion gap [Moles/Vol] 13 mmol/L Normal 8-15 [facility] Comment on above: Order Comment: Speci men Type: BLOOD SPECIMENOrdering Facility: [facility] Address: [address] [place], [place] [address] Performed By: #### 2 4323-8 ####[facility] LABCLIA [id number] [place] [id number] [place] AST [Catalytic activity/Vol] 100 U/L High 13-35 [facility] Comment on above: Order Comment: Speci men Type: BLOOD SPECIMENOrdering Facility: [facility] Address: [address] [place] [address] Performed By: #### 2 4323-8 ####[facility] LABCLIA [id number] [place] [address] [place] Bilirubin [Mass/Vol] 0.8 mg/dL Normal 0.2-1.3 [facility] Comment on above: Order Comment: Speci men Type: BLOOD SPECIMENOrdering Facility: [facility] Address: [address] [place] [address] Performed By: #### 2 4323-8 ####[facility] LABCLIA [id number] [place] [address] [place] Calcium [Mass/Vol] 9.1 mg/dL Normal 8.5-10.2 [facility] Comment on above: Order Comment: Speci men Type: BLOOD SPECIMENOrdering Facility: [facility] Address: [address] [place] [address] Performed By: #### 2 4323-8 ####[facility] LABCLIA [id number] [place] [id number] [place] Chloride [Moles/Vol] 101 mmol/L Normal 98-107 [facility] Comment on above: Order Comment: Speci men Type: BLOOD SPECIMENOrdering Facility: [facility] Address: [address] [place], [place] [address] Performed By: #### 2 4323-8 ####[facility] LABCLIA [id number] [place] [address] [place] CO2 [Moles/Vol] 21 mmol/L Low 22-30 [facility] Comment on above: Order Comment: Speci men Type: BLOOD SPECIMENOrdering Facility: [facility] Address: [address] [place] [address] Performed By: #### 2 4323-8 ####[facility] LABIA [id number] [place] [address] [place] Creatinine [Mass/Vol] 0.99 mg/dL High 0.58-0.96 [facility] Comment on above: Order Comment: Speci men Type: BLOOD SPECIMENOrdering Facility: [facility] Address: [address] [place] [address] Performed By: #### 2 4323-8 ####[facility] [id number] [place] [address] [place] Creatinine and Glomerular filtration rate.predicted panel (S/P/Bld) 58 mL/min/1.73m??? Low >=60 [facility] Comment on above: Order Comment: Speci men Type: BLOOD SPECIMENOrdering Facility: [facility] Address: [address] [place] [address] Result Comment: Lexus mated Glomerular Filtration Rate [...] actual GFR. Performed By: #### 2 4323-8 ####[facility] [id number] [place] [address] [place] Glucose [Mass/Vol] 152 mg/dL High 74-99 [facility] Comment on above: Order Comment: Speci men Type: BLOOD SPECIMENOrdering Facility: [facility] Address: [address] [place] [id number] Result Comment: The [place] [employer] (ADA) provides guidance for cutoff [...] Standards of Medical Care in Diabetes 2016, [place] [employer]. Diabetes Care. 2016.39(Suppl 1). Performed By: #### 2 4323-8 ####[facility] LABIA [id number] [place] [address] [place] Potassium [Moles/Vol] 3.7 mmol/L Normal 3.7-5.1 [facility] Comment on above: Order Comment: Speci men Type: BLOOD SPECIMENOrdering Facility: [facility] Address: [address] [place] [address] Performed By: #### 2 4323-8 ####[facility] LABIA [id number] [place] [address] [place] Protein [Mass/Vol] 5.7 g/dL Low 6.3-8.0 [facility] Comment on above: Order Comment: Speci men Type: BLOOD SPECIMENOrdering Facility: [facility] Address: [address] [place] [address] Performed By: #### 2 4323-8 ####[facility] LABIA [id number] [place] [address] [place] Sodium [Moles/Vol] 135 mmol/L Low 136-144 [facility] Comment on above: Order Comment: Speci men Type: BLOOD SPECIMENOrdering Facility: [facility] Address: [address] [place] [address] Performed By: #### 2 4323-8 ####[facility] LABCLIA [id number] [place] [address] [place] Urea nitrogen [Mass/Vol] 23 mg/dL High 7-21 [facility] Comment on above: Order Comment: Speci men Type: BLOOD SPECIMENOrdering Facility: [facility] Address: [address] [facility] [place] [id number] Performed By: #### 2 4323-8 ####[facility] LABCLIA [id number] [place] [address] [place] [id number] 03-26-2024 ECG01 Normal [facility] ECG01 Normal [facility] ECHO LIMITEDon 03-26-2024 ECHO LIMITED Normal [facility] Magnesium SerPl-mCncon 03-26 Magnesium [Mass/Vol] 2.1 mg/dL Normal 1.7-2.3 [facility] Comment on above: Order Comment: Speci men Type: BLOOD SPECIMENOrdering Facility: [facility] Address: [address] [place] [id number] Performed By: #### 2 4323-8, , 2776-04 ####[facility] LABCLIA [id number] [place] [id number] [place] NURSING PROGon 03-26-2024 NURSING PROG Normal [facility] Phosphate SerPl-mCncon 03-26 Phosphate [Mass/Vol] 2.0 mg/dL Low 2.7-4.8 [facility] Comment on above: Order Comment: Speci men Type: BLOOD SPECIMENOrdering Facility: [facility] Address: [address] [place] [address] Performed By: #### 2 4323-8, , 2776-04 ####[facility] LABCLIA [id number] [place] [id number] [place] THERAPY NTon 03-26-2024 THERAPY NT Normal [facility] THERAPY NT Normal [facility] THERAPY NT Normal [facility] XR CHEST 2V FRONTAL/LATon XR CHEST 2V FRONTAL/LAT Normal [facility] ARTERIAL BLOOD GASESon 03-25 Base deficit (BldA) [Moles/Vol] -1 mmol/L Normal -2-0 [facility] Comment on above: Order Comment: Speci men Type: ARTERIAL BLOOD SPECIMENOrdering Facility: [facility] Address: [address] [place] [address] Performed By: #### A LLBG ####[facility] LABIA [id number] [place] [address] [place] Body temperature 98.6 [degF] Normal [facility] Comment on above: Order Comment: Speci men Type: ARTERIAL BLOOD SPECIMENOrdering Facility: [facility] Address: [address] [place] [address] Performed By: #### A LLBG ####[facility] LABCLIA [id number] [place] [address] [place] Calcium.ionized (Bld) [Mass/Vol] 1.22 mmol/L Normal 1.08-1.30 [facility] Comment on above: Order Comment: Speci men Type: ARTERIAL BLOOD SPECIMENOrdering Facility: [facility] Address: [address] [place] [address] Performed By: #### A LLBG ####[facility] LABCLIA [id number] [place] [address] [place] Calcium.ionized adjusted to pH 7.4 (BldA) [Moles/Vol] 1.21 mmol/L Normal 1.08-1.30 [facility] Comment on above: Order Comment: Speci men Type: ARTERIAL BLOOD SPECIMENOrdering Facility: [facility] Address: [address] [place] [address] Performed By: #### A LLBG ####[facility] LABCLIA [id number] [place] [address] [place] Carboxyhemoglobin (BldA) [Mass fraction] 1.3 % Normal 0.0-2.0 [facility] Comment on above: Order Comment: Speci men Type: ARTERIAL BLOOD SPECIMENOrdering Facility: [facility] Address: [address] [place] [address] Result Comment: Carb oxyhemoglobin Reference Range for Smokers: 2.0-8.0% Performed By: #### A LLBG ####[facility] LABCLIA [id number] [place] [address] [place] CO2 (Bld) [Partial pressure] 40 mm Hg Normal 36-46 [facility] Comment on above: Order Comment: Speci men Type: ARTERIAL BLOOD SPECIMENOrdering Facility: [facility] [facility] Address: [address] [place] [address] Performed By: #### A LLBG ####[facility] LABCLIA [id number] [place] [address] [place] Glucose [Mass/Vol] 157 mg/dL High 60-105 [facility] Comment on above: Order Comment: Speci men Type: ARTERIAL BLOOD SPECIMENOrdering Facility: [facility] Address: [address] [place] [address] Performed By: #### A LLBG ####[facility] LABCLIA [id number] [place] [address] [place] HCO3 (Bld) [Moles/Vol] 23 mmol/L Normal 22-26 [facility] Comment on above: Order Comment: Speci men Type: ARTERIAL BLOOD SPECIMENOrdering Facility: [facility] Address: [address] [place] [address] Performed By: #### A LLBG ####[facility] LABCLIA [id number] [place] [address] [place] Hematocrit (Bld) [Volume fraction] 32.4 % Low 36.0-46.0 [facility] Comment on above: Order Comment: Speci men Type: ARTERIAL BLOOD SPECIMENOrdering Facility: [facility] Address: [address] [place] [address] Performed By: #### A LLBG ####[facility] LABCLIA [id number] [place] [address] [place] Hemoglobin (Bld) [Mass/Vol] 10.5 g/dL Low 11.5-15.5 [facility] Comment on above: Order Comment: Speci men Type: ARTERIAL BLOOD SPECIMENOrdering Facility: [facility] Address: [address] [place] [address] Performed By: #### A LLBG ####[facility] LABCLIA [id number] [place] [address] [place] Lactate [Moles/Vol] 2.1 mmol/L Normal 0.5-2.2 [facility] Comment on above: Order Comment: Speci men Type: ARTERIAL BLOOD SPECIMENOrdering Facility: [facility] Address: [address] [place] [address] Performed By: #### A LLBG ####[facility] LABCLIA [id number] [place] [address] [place] LITERS 2 Liters/min Normal [facility] Comment on above: Order Comment: Speci men Type: ARTERIAL BLOOD SPECIMENOrdering Facility: [facility] Address: [address] [place] [address] Performed By: #### A LLBG ####[facility] LABCLIA [id number] [place] [address] [place] Methemoglobin (Bld) [Mass fraction] 1.2 % Normal 0.0-1.5 [facility] Comment on above: Order Comment: Speci men Type: ARTERIAL BLOOD SPECIMENOrdering Facility: [facility] Address: [address] [place] [address] Performed By: #### A LLBG ####[facility] LABCLIA [id number] [place] [address] [place] O2 THERAPY NC = Nasal Cannula Normal [facility] Comment on above: Order Comment: Speci men Type: ARTERIAL BLOOD SPECIMENOrdering Facility: [facility] Address: [address] [place], [place] [id number] Performed By: #### A LLBG ####[facility] LABCLIA [id number] [place] [address] [place] Oxygen (Bld) [Partial pressure] 131 mm Hg High 85-95 [facility] Comment on above: Order Comment: Speci men Type: ARTERIAL BLOOD SPECIMENOrdering Facility: [facility] Address: [address] [place] [address] Performed By: #### A LLBG ####[facility] LABCLIA [id number] [place] [address] [place] Oxyhemoglobin (BldA) [Mass fraction] 97 % Normal 95-98 [facility] Comment on above: Order Comment: Speci men Type: ARTERIAL BLOOD SPECIMENOrdering Facility: [facility] Address: [address] [place] [address] Performed By: #### A LLBG ####[facility] LABCLIA [id number] [place] [address] [place] pH (Bld) 7.38 [pH] Normal 7.35-7.45 [facility] Comment on above: Order Comment: Speci men Type: ARTERIAL BLOOD SPECIMENOrdering Facility: [facility] Address: [address] [place] [address] Performed By: #### A LLBG ####[facility] LABCLIA [id number] [place] [address] [place] Potassium [Moles/Vol] 4.6 mmol/L Normal 3.5-5.0 [facility] Comment on above: Order Comment: Speci men Type: ARTERIAL BLOOD SPECIMENOrdering Facility: [facility] Address: [address] [place] [address] Performed By: #### A LLBG ####[facility] LABCLIA [id number] [place] [address] [place] Sodium [Moles/Vol] 137 mmol/L Normal 136-144 [facility] Comment on above: Order Comment: Speci men Type: ARTERIAL BLOOD SPECIMENOrdering Facility: [facility] Address: [address] [place] [address] Performed By: #### A LLBG ####[facility] LABCLIA [id number] [place] [address] [place] Base deficit (BldA) [Moles/Vol] -1 mmol/L Normal -2-0 [facility] Comment on above: Order Comment: Speci men Type: ARTERIAL BLOOD SPECIMENOrdering Facility: [facility] Address: [address] [place] [address] Performed By: #### A LLBG ####[facility] LABCLIA [id number] [place] [address] [place] Body temperature 98.6 [degF] Normal [facility] Comment on above: Order Comment: Speci men Type: ARTERIAL BLOOD SPECIMENOrdering Facility: [facility] Address: [address] [place] [address] Performed By: #### A LLBG ####[facility] LABCLIA [id number] [place] [address] [place] Calcium.ionized (Bld) [Mass/Vol] 1.23 mmol/L Normal 1.08-1.30 [facility] Comment on above: Order Comment: Speci men Type: ARTERIAL BLOOD SPECIMENOrdering Facility: [facility] Address: [address] [place] [address] Performed By: #### A LLBG ####[facility] LABCLIA [id number] [address] [id number] [address] [place] Calcium.ionized adjusted to pH 7.4 (BldA) [Moles/Vol] 1.22 mmol/L Normal 1.08-1.30 [facility] Comment on above: Order Comment: Speci men Type: ARTERIAL BLOOD SPECIMENOrdering Facility: [facility] Address: [address] [place] [address] Performed By: #### A LLBG ####[facility] LABCLIA [id number] [place] [address] [place] Carboxyhemoglobin (BldA) [Mass fraction] 1.0 % Normal 0.0-2.0 [facility] Comment on above: Order Comment: Speci men Type: ARTERIAL BLOOD SPECIMENOrdering Facility: [facility] Address: [address] [place] [address] Result Comment: Carb oxyhemoglobin Reference Range for Smokers: 2.0-8.0% Performed By: #### A LLBG ####[facility] LABIA [id number] [place] [address] [place] CO2 (Bld) [Partial pressure] 39 mm Hg Normal 36-46 [facility] Comment on above: Order Comment: Speci men Type: ARTERIAL BLOOD SPECIMENOrdering Facility: [facility] Address: [address] [place] [address] Performed By: #### A LLBG ####[facility] LABIA [id number] [place] [address] [place] Glucose [Mass/Vol] 157 mg/dL High 60-105 [facility] Comment on above: Order Comment: Speci men Type: ARTERIAL BLOOD SPECIMENOrdering Facility: [facility] Address: [address] [place] [address] Performed By: #### A LLBG ####[facility] LABIA [id number] [place] [address] [place] HCO3 (Bld) [Moles/Vol] 23 mmol/L Normal 22-26 [facility] Comment on above: Order Comment: Speci men Type: ARTERIAL BLOOD SPECIMENOrdering Facility: [facility] Address: [address] [place] [address] Performed By: #### A LLBG ####[facility] LABCLIA [id number] [place] [address] [place] Hematocrit (Bld) [Volume fraction] 31.6 % Low 36.0-46.0 [facility] Comment on above: Order Comment: Speci men Type: ARTERIAL BLOOD SPECIMENOrdering Facility: [facility] Address: [address] [place] [address] Performed By: #### A LLBG ####[facility] LABCLIA [id number] [place] [address] [place] Hemoglobin (Bld) [Mass/Vol] 10.2 g/dL Low 11.5-15.5 [facility] Comment on above: Order Comment: Speci men Type: ARTERIAL BLOOD SPECIMENOrdering Facility: [facility] Address: [address] [place] [address] Performed By: #### A LLBG ####[facility] LABCLIA [id number] [place] [address] [place] Lactate [Moles/Vol] 2.8 mmol/L High 0.5-2.2 [facility] Comment on above: Order Comment: Speci men Type: ARTERIAL BLOOD SPECIMENOrdering Facility: [facility] Address: [address] [place] [address] Performed By: #### A LLBG ####[facility] LABCLIA [id number] [place] [address] [place] LITERS 4 Liters/min Normal [facility] Comment on above: Order Comment: Speci men Type: ARTERIAL BLOOD SPECIMENOrdering Facility: [facility] Address: [address] [place] [address] Performed By: #### A LLBG ####[facility] LABCLIA [id number] [place] [id number] [place] Methemoglobin (Bld) [Mass fraction] 0.6 % Normal 0.0-1.5 [facility] Comment on above: Order Comment: Speci men Type: ARTERIAL BLOOD SPECIMENOrdering Facility: [facility] Address: [address] [place], [place] [id number] Performed By: #### A LLBG ####[facility] LABCLIA [id number] [place] [id number] [place] O2 THERAPY NC = Nasal Cannula Normal [facility] Comment on above: Order Comment: Speci men Type: ARTERIAL BLOOD SPECIMENOrdering Facility: [facility] Address: [address] [place], [place] [address] Performed By: #### A LLBG ####[facility] LABIA [id number] [place] [address] [place] Oxygen (Bld) [Partial pressure] 165 mm Hg High 85-95 [facility] Comment on above: Order Comment: Speci men Type: ARTERIAL BLOOD SPECIMENOrdering Facility: [facility] Address: [address] [place], [place] [address] Performed By: #### A LLBG ####[facility] LABIA [id number] [place] [id number] [place] Oxyhemoglobin (BldA) [Mass fraction] 98 % Normal 95-98 [facility] Comment on above: Order Comment: Speci men Type: ARTERIAL BLOOD SPECIMENOrdering Facility: [facility] Address: [address] [place] [address] Performed By: #### A LLBG ####[facility] LABIA [id number] [place] [id number] [place] pH (Bld) 7.38 [pH] Normal 7.35-7.45 [facility] Comment on above: Order Comment: Speci men Type: ARTERIAL BLOOD SPECIMENOrdering Facility: [facility] Address: [address] [place] [address] Performed By: #### A LLBG ####[facility] LABCLIA [id number] [place] [address] [place] Potassium [Moles/Vol] 4.5 mmol/L Normal 3.5-5.0 [facility] Comment on above: Order Comment: Speci men Type: ARTERIAL BLOOD SPECIMENOrdering Facility: [facility] Address: [address] [place] [address] Performed By: #### A LLBG ####[facility] LABCLIA [id number] [place] [address] [place] Sodium [Moles/Vol] 138 mmol/L Normal 136-144 [facility] Comment on above: Order Comment: Speci men Type: ARTERIAL BLOOD SPECIMENOrdering Facility: [facility] Address: [address] [place] [address] Performed By: #### A LLBG ####[facility] LABCLIA [id number] [place] [address] [place] Base excess Calc (Bld) [Moles/Vol] 1 mmol/L Normal 0-2 [facility] Comment on above: Order Comment: Speci men Type: ARTERIAL BLOOD SPECIMENOrdering Facility: [facility] Address: [address] [place] [address] Performed By: #### A LLBG ####[facility] LABCLIA [id number] [place] [address] [place] Body temperature 98.6 [degF] Normal [facility] Comment on above: Order Comment: Speci men Type: ARTERIAL BLOOD SPECIMENOrdering Facility: [facility] Address: [address] [place] [address] Performed By: #### A LLBG ####[facility] LABCLIA [id number] [place] [address] [place] Calcium.ionized (Bld) [Mass/Vol] 1.17 mmol/L Normal 1.08-1.30 [facility] Comment on above: Order Comment: Speci men Type: ARTERIAL BLOOD SPECIMENOrdering Facility: [facility] Address: [address] [place] [address] Performed By: #### A LLBG ####[facility] LABCLIA [id number] [place] [address] [place] Calcium.ionized adjusted to pH 7.4 (BldA) [Moles/Vol] 1.16 mmol/L Normal 1.08-1.30 [facility] Comment on above: Order Comment: Speci men Type: ARTERIAL BLOOD SPECIMENOrdering Facility: [facility] Address: [address] [place] [address] Performed By: #### A LLBG ####[facility] LABCLIA [id number] [place] [address] [place] Carboxyhemoglobin (BldA) [Mass fraction] 1.4 % Normal 0.0-2.0 [facility] Comment on above: Order Comment: Speci men Type: ARTERIAL BLOOD SPECIMENOrdering Facility: [facility] Address: [address] [place] [address] Result Comment: Carb oxyhemoglobin Reference Range for Smokers: 2.0-8.0% Performed By: #### A LLBG ####[facility] LABCLIA [id number] [place] [address] [place] CO2 (Bld) [Partial pressure] 43 mm Hg Normal 36-46 [facility] Comment on above: Order Comment: Speci men Type: ARTERIAL BLOOD SPECIMENOrdering Facility: [facility] Address: [address] [place] [address] Performed By: #### A LLBG ####[facility] LABCLIA [id number] [place] [address] [place] Glucose [Mass/Vol] 152 mg/dL High 60-105 [facility] Comment on above: Order Comment: Speci men Type: ARTERIAL BLOOD SPECIMENOrdering Facility: [facility] Address: [address] [place] [address] Performed By: #### A LLBG ####[facility] LABCLIA [id number] [place] [address] [place] HCO3 (Bld) [Moles/Vol] 26 mmol/L Normal 22-26 [facility] Comment on above: Order Comment: Speci men Type: ARTERIAL BLOOD SPECIMENOrdering Facility: [facility] Address: [address] [place] [address] Performed By: #### A LLBG ####[facility] LABCLIA [id number] [place] [address] [place] Hematocrit (Bld) [Volume fraction] 30.1 % Low 36.0-46.0 [facility] Comment on above: Order Comment: Speci men Type: ARTERIAL BLOOD SPECIMENOrdering Facility: [facility] Address: [address] [place] [address] Performed By: #### A LLBG ####[facility] LABIA [id number] [place] [address] [place] Hemoglobin (Bld) [Mass/Vol] 9.7 g/dL Low 11.5-15.5 [facility] Comment on above: Order Comment: Speci men Type: ARTERIAL BLOOD SPECIMENOrdering Facility: [facility] Address: [address] [place] [address] Performed By: #### A LLBG ####[facility] LABIA [id number] [place] [address] [place] Lactate [Moles/Vol] 1.0 mmol/L Normal 0.5-2.2 [facility] Comment on above: Order Comment: Speci men Type: ARTERIAL BLOOD SPECIMENOrdering Facility: [facility] Address: [address] [place] [address] Performed By: #### A LLBG ####[facility] LABCLIA [id number] [place] [id number] [place] LITERS 4 Liters/min Normal [facility] Comment on above: Order Comment: Speci men Type: ARTERIAL BLOOD SPECIMENOrdering Facility: [facility] Address: [address] [place], [place] [id number] Performed By: #### A LLBG ####[facility] LABCLIA [id number] [place] [id number] [place] Methemoglobin (Bld) [Mass fraction] 0.7 % Normal 0.0-1.5 [facility] Comment on above: Order Comment: Speci men Type: ARTERIAL BLOOD SPECIMENOrdering Facility: [facility] Address: [address] [place] [address] Performed By: #### A LLBG ####[facility] LABCLIA [id number] [place] [address] [place] O2 THERAPY NC = Nasal Cannula Normal [facility] Comment on above: Order Comment: Speci men Type: ARTERIAL BLOOD SPECIMENOrdering Facility: [facility] Address: [address] [place], [place] [address] Performed By: #### A LLBG ####[facility] LABCLIA [id number] [place] [id number] [place] Oxygen (Bld) [Partial pressure] 118 mm Hg High 85-95 [facility] Comment on above: Order Comment: Speci men Type: ARTERIAL BLOOD SPECIMENOrdering Facility: [facility] Address: [address] [place], [place] [id number] Performed By: #### A LLBG ####[facility] LABCLIA [id number] [place] [id number] [place] Oxyhemoglobin (BldA) [Mass fraction] 97 % Normal 95-98 [facility] Comment on above: Order Comment: Speci men Type: ARTERIAL BLOOD SPECIMENOrdering Facility: [facility] Address: [address] [place] [address] Performed By: #### A LLBG ####[facility] LABCLIA [id number] [place] [address] [place] pH (Bld) 7.39 [pH] Normal 7.35-7.45 [facility] Comment on above: Order Comment: Speci men Type: ARTERIAL BLOOD SPECIMENOrdering Facility: [facility] Address: [address] [place] [address] Performed By: #### A LLBG ####[facility] LABCLIA [id number] [place] [address] [place] Potassium [Moles/Vol] 4.2 mmol/L Normal 3.5-5.0 [facility] Comment on above: Order Comment: Speci men Type: ARTERIAL BLOOD SPECIMENOrdering Facility: [facility] Address: [address] [place] [address] Performed By: #### A LLBG ####[facility] LABIA [id number] [place] [address] [place] Sodium [Moles/Vol] 137 mmol/L Normal 136-144 [facility] Comment on above: Order Comment: Speci men Type: ARTERIAL BLOOD SPECIMENOrdering Facility: [facility] Address: [address] [place] [address] Performed By: #### A LLBG ####[facility] LABCLIA [id number] [place] [address] [place] CASE MANAGEMon 03-25-2024 CASE MANAGEM Normal [facility] CBC panel Auto (Bld)on 03-25 Erythrocyte distribution width (RBC) [Ratio] 14.0 % Normal 11.5-15.0 [facility] Comment on above: Order Comment: Speci men Type: BLOOD SPECIMENOrdering Facility: [facility] Address: [address] [place] [address] Performed By: #### 5 8410-2 ####[facility] LABIA [id number] [place] [address] [place] Hematocrit (Bld) [Volume fraction] 30.4 % Low 36.0-46.0 [facility] Comment on above: Order Comment: Speci men Type: BLOOD SPECIMENOrdering Facility: [facility] Address: [address] [place] [address] Performed By: #### 5 8410-2 ####[facility] LABIA [id number] [place] [address] [place] Hemoglobin (Bld) [Mass/Vol] 9.9 g/dL Low 11.5-15.5 [facility] Comment on above: Order Comment: Speci men Type: BLOOD SPECIMENOrdering Facility: [facility] Address: [address] [place] [address] Performed By: #### 5 8410-2 ####[facility] [id number] [place] [address] [place] MCH (RBC) [Entitic mass] 29.1 pg Normal 26.0-34.0 [facility] Comment on above: Order Comment: Speci men Type: BLOOD SPECIMENOrdering Facility: [facility] Address: [address] [place] [address] Performed By: #### 5 8410-2 ####[facility] [id number] [place] [address] [place] MCHC (RBC) [Mass/Vol] 32.6 g/dL Normal 30.5-36.0 [facility] Comment on above: Order Comment: Speci men Type: BLOOD SPECIMENOrdering Facility: [facility] Address: [address] [place] [address] Performed By: #### 5 8410-2 ####[facility] [id number] [place] [address] [place] MCV (RBC) [Entitic vol] 89.4 fL Normal 80.0-100.0 [facility] Comment on above: Order Comment: Speci men Type: BLOOD SPECIMENOrdering Facility: [facility] Address: [address] [place] [address] Performed By: #### 5 8410-2 ####[facility] LABCLIA [id number] [place] [address] [place] Nucleated RBC (Bld) [#/Vol] 10*3/uL Normal <0.01 [facility] Comment on above: Order Comment: Speci men Type: BLOOD SPECIMENOrdering Facility: [facility] Address: [address] [place] [address] Performed By: #### 5 8410-2 ####[facility] LABCLIA [id number] [place] [address] [place] Platelet mean volume (Bld) [Entitic vol] 12.8 fL High 9.0-12.7 [facility] Comment on above: Order Comment: Speci men Type: BLOOD SPECIMENOrdering Facility: [facility] Address: [address] [place] [address] Performed By: #### 5 8410-2 ####[facility] LABIA [id number] [place] [address] [place] Platelets (Bld) [#/Vol] 89 10*3/uL Low 150-400 [facility] Comment on above: Order Comment: Speci men Type: BLOOD SPECIMENOrdering Facility: [facility] Address: [address] [place] [address] Result Comment: No c lot detected. Performed By: #### 5 8410-2 ####[facility] LABCLIA [id number] [place] [address] [place] RBC (Bld) [#/Vol] 3.40 10*6/uL Low 3.90-5.20 [facility] Comment on above: Order Comment: Speci men Type: BLOOD SPECIMENOrdering Facility: [facility] Address: [address] [place] [id number] Performed By: #### 5 8410-2 ####[facility] LABCLIA [id number] [address] [address] [place] WBC (Bld) [#/Vol] 11.48 10*3/uL High 3.70-11.00 [facility] Comment on above: Order Comment: Speci men Type: BLOOD SPECIMENOrdering Facility: [facility] Address: [address] [place], [place] [id number] Performed By: #### 5 8410-2 ####[facility] LABCLIA [id number] [place] [address] [place] Comprehensive metabolic 2000 panelon 03-25-2024 Albumin [Mass/Vol] 3.7 g/dL Low 3.9-4.9 [facility] Comment on above: Order Comment: Speci men Type: BLOOD SPECIMENOrdering Facility: [facility] Address: [address] [place] [address] Performed By: #### 2 4323-8, HSTNT ####[facility] LABCLIA [id number] [place] [address] [place] ALP [Catalytic activity/Vol] 48 U/L Normal 34-123 [facility] Comment on above: Order Comment: Speci men Type: BLOOD SPECIMENOrdering Facility: [facility] Address: [address] [place], [place] [address] Performed By: #### 2 4323-8, HSTNT ####[facility] LABCLIA [id number] [place] [id number] [place] ALT [Catalytic activity/Vol] 85 U/L High 7-38 [facility] Comment on above: Order Comment: Speci men Type: BLOOD SPECIMENOrdering Facility: [facility] Address: [address] [place] [address] Performed By: #### 2 4323-8, HSTNT ####[facility] LABCLIA [id number] [place] [id number] [place] Anion gap [Moles/Vol] 16 mmol/L High 8-15 [facility] Comment on above: Order Comment: Speci men Type: BLOOD SPECIMENOrdering Facility: [facility] Address: [address] [place] [address] Performed By: #### 2 4323-8, HSTNT ####[facility] LABCLIA [id number] [place] [address] [place] AST [Catalytic activity/Vol] 288 U/L High 13-35 [facility] Comment on above: Order Comment: Speci men Type: BLOOD SPECIMENOrdering Facility: [facility] Address: [address] [place] [address] Performed By: #### 2 4323-8, HSTNT ####[facility] LABCLIA [id number] [place] [address] [place] Bilirubin [Mass/Vol] 1.2 mg/dL Normal 0.2-1.3 [facility] Comment on above: Order Comment: Speci men Type: BLOOD SPECIMENOrdering Facility: [facility] Address: [address] [place], [place] [address] Performed By: #### 2 4323-8, HSTNT ####[facility] LABCLIA [id number] [place] [id number] [place] Calcium [Mass/Vol] 8.2 mg/dL Low 8.5-10.2 [facility] Comment on above: Order Comment: Speci men Type: BLOOD SPECIMENOrdering Facility: [facility] Address: [address] [place], [place] [address] Performed By: #### 2 4323-8, HSTNT ####[facility] LABCLIA [id number] [place] [address] [place] Chloride [Moles/Vol] 106 mmol/L Normal 98-107 [facility] Comment on above: Order Comment: Speci men Type: BLOOD SPECIMENOrdering Facility: [facility] Address: [address] [place] [address] Performed By: #### 2 4323-8, HSTNT ####[facility] LABCLIA [id number] [place] [address] [place] CO2 [Moles/Vol] 19 mmol/L Low 22-30 [facility] Comment on above: Order Comment: Speci men Type: BLOOD SPECIMENOrdering Facility: [facility] Address: [address] [place] [address] Performed By: #### 2 4323-8, HSTNT ####[facility] LABCLIA [id number] [place] [address] [place] Creatinine [Mass/Vol] 1.01 mg/dL High 0.58-0.96 [facility] Comment on above: Order Comment: Speci men Type: BLOOD SPECIMENOrdering Facility: [facility] Address: [address] [place] [address] Performed By: #### 2 4323-8, HSTNT ####[facility] LABCLIA [id number] [place] [address] [place] Creatinine and Glomerular filtration rate.predicted panel (S/P/Bld) 56 mL/min/1.73m??? Low >=60 [facility] Comment on above: Order Comment: Speci men Type: BLOOD SPECIMENOrdering Facility: [facility] Address: [address] [place] [address] Result Comment: Lexus mated Glomerular Filtration Rate [...] GFR. Performed By: #### 2 4323-8, HSTNT ####[facility] LABCLIA [id number] [place] [address] [place] Glucose [Mass/Vol] 162 mg/dL High 74-99 [facility] Comment on above: Order Comment: Speci men Type: BLOOD SPECIMENOrdering Facility: [facility] Address: [address] [place] [address] Result Comment: The [place] Diabetes [employer] (ADA) provides guidance for cutoff [...] Standards of Medical Care in Diabetes 2016, [place] [employer]. Diabetes Care. 2016.39(Suppl 1). Performed By: #### 2 4323-8, HSTNT ####[facility] LABCLIA [id number] [place] [address] [place] Potassium [Moles/Vol] 4.6 mmol/L Normal 3.7-5.1 [facility] Comment on above: Order Comment: Jajai men Type: BLOOD SPECIMENOrdering Facility: [facility] Address: [address] [place] [address] Performed By: #### 2 4323-8, HSTNT ####[facility] LABIA [id number] [place] [address] [place] Protein [Mass/Vol] 5.2 g/dL Low 6.3-8.0 [facility] Comment on above: Order Comment: Jajai men Type: BLOOD SPECIMENOrdering Facility: [facility] Address: [address] [place] [id number] Performed By: #### 2 4323-8, HSTNT ####[facility] LABCLIA [id number] [place] [id number] [place] Sodium [Moles/Vol] 141 mmol/L Normal 136-144 [facility] Comment on above: Order Comment: Speci men Type: BLOOD SPECIMENOrdering Facility: [facility] Address: [address] [place] [address] Performed By: #### 2 4323-8, HSTNT ####[facility] LABCLIA [id number] [place] [address] [place] Urea nitrogen [Mass/Vol] 18 mg/dL Normal 7-21 [facility] Comment on above: Order Comment: Speci men Type: BLOOD SPECIMENOrdering Facility: [facility] Address: [address] [place] [address] Performed By: #### 2 4323-8, HSTNT ####[facility] LABCLIA [id number] [place] [address] [place] HIGH SENSITIVITY TROPONIN To n 03-25-2024 Troponin T.cardiac High sensitivity method [Mass/Vol] 1198 ng/L High <12 [facility] Comment on above: Order Comment: Speci men Type: BLOOD SPECIMENOrdering Facility: [facility] Address: [address] [place] [address] Performed By: #### 2 4323-8, HSTNT ####[facility] LABCLIA [id number] [place] [id number] [place] XR CHEST 1V FRONTAL PORTon 1 05-26-2023 XR CHEST 1V FRONTAL PORT Normal [facility] ANES POSTPROC EVALon 024 ANES POSTPROC EVAL Normal [facility] ANES PRE-OPon 03-24-2024 ANES PRE-OP Normal [facility] ARTERIAL BLOOD GASESon 03-24 Base deficit (BldA) [Moles/Vol] -1 mmol/L Normal -2-0 [facility] Comment on above: Order Comment: Speci men Type: ARTERIAL BLOOD SPECIMENOrdering Facility: [facility] Address: [address] [place] [address] Performed By: #### A LLBG ####[facility] LABIA [id number] [place] [address] [place] Body temperature 98.6 [degF] Normal [facility] Comment on above: Order Comment: Speci men Type: ARTERIAL BLOOD SPECIMENOrdering Facility: [facility] Address: [address] [place] [address] Performed By: #### A LLBG ####[facility] LABCLIA [id number] [place] [address] [place] Calcium.ionized (Bld) [Mass/Vol] 1.23 mmol/L Normal 1.08-1.30 [facility] Comment on above: Order Comment: Speci men Type: ARTERIAL BLOOD SPECIMENOrdering Facility: [facility] Address: [address] [place] [address] Performed By: #### A LLBG ####[facility] LABIA [id number] [place] [address] [place] Calcium.ionized adjusted to pH 7.4 (BldA) [Moles/Vol] 1.21 mmol/L Normal 1.08-1.30 [facility] Comment on above: Order Comment: Speci men Type: ARTERIAL BLOOD SPECIMENOrdering Facility: [facility] Address: [address] [place] [address] Performed By: #### A LLBG ####[facility] LABIA [id number] [place] [address] [place] Carboxyhemoglobin (BldA) [Mass fraction] 1.4 % Normal 0.0-2.0 [facility] Comment on above: Order Comment: Speci men Type: ARTERIAL BLOOD SPECIMENOrdering Facility: [facility] Address: [address] [place] [address] Result Comment: Carb oxyhemoglobin Reference Range for Smokers: 2.0-8.0% Performed By: #### A LLBG ####[facility] LABCLIA [id number] [place] [address] [place] CO2 (Bld) [Partial pressure] 42 mm Hg Normal 36-46 [facility] Comment on above: Order Comment: Speci men Type: ARTERIAL BLOOD SPECIMENOrdering Facility: [facility] Address: [address] [place] [address] Performed By: #### A LLBG ####[facility] LABCLIA [id number] [place] [address] [place] Glucose [Mass/Vol] 168 mg/dL High 60-105 [facility] Comment on above: Order Comment: Speci men Type: ARTERIAL BLOOD SPECIMENOrdering Facility: [facility] Address: [address] [place] [address] Performed By: #### A LLBG ####[facility] LABCLIA [id number] [place] [address] [place] HCO3 (Bld) [Moles/Vol] 23 mmol/L Normal 22-26 [facility] Comment on above: Order Comment: Speci men Type: ARTERIAL BLOOD SPECIMENOrdering Facility: [facility] Address: [address] [place] [address] Performed By: #### A LLBG ####[facility] LABCLIA [id number] [place] [address] [place] Hematocrit (Bld) [Volume fraction] 31.3 % Low 36.0-46.0 [facility] Comment on above: Order Comment: Speci men Type: ARTERIAL BLOOD SPECIMENOrdering Facility: [facility] Address: [address] [place] [address] Performed By: #### A LLBG ####[facility] LABCLIA [id number] [place] [address] [place] Hemoglobin (Bld) [Mass/Vol] 10.1 g/dL Low 11.5-15.5 [facility] Comment on above: Order Comment: Speci men Type: ARTERIAL BLOOD SPECIMENOrdering Facility: [facility] Address: [address] [place] [address] Performed By: #### A LLBG ####[facility] LABIA [id number] [place] [address] [place] Lactate [Moles/Vol] 1.4 mmol/L Normal 0.5-2.2 [facility] Comment on above: Order Comment: Speci men Type: ARTERIAL BLOOD SPECIMENOrdering Facility: [facility] Address: [address] [place] [address] Performed By: #### A LLBG ####[facility] LABIA [id number] [place] [address] [place] LITERS 4 Liters/min Normal [facility] Comment on above: Order Comment: Speci men Type: ARTERIAL BLOOD SPECIMENOrdering Facility: [facility] Address: [address] [place] [address] Performed By: #### A LLBG ####[facility] [id number] [place] [address] [place] Methemoglobin (Bld) [Mass fraction] 0.8 % Normal 0.0-1.5 [facility] Comment on above: Order Comment: Speci men Type: ARTERIAL BLOOD SPECIMENOrdering Facility: [facility] Address: [address] [place] [address] Performed By: #### A LLBG ####[facility] LABIA [id number] [place] [address] [place] O2 THERAPY NC = Nasal Cannula Normal [facility] Comment on above: Order Comment: Speci men Type: ARTERIAL BLOOD SPECIMENOrdering Facility: [facility] Address: [address] [place] [address] Performed By: #### A LLBG ####[facility] LABCLIA [id number] [place] [address] [place] Oxygen (Bld) [Partial pressure] 163 mm Hg High 85-95 [facility] Comment on above: Order Comment: Speci men Type: ARTERIAL BLOOD SPECIMENOrdering Facility: [facility] Address: [address] [place] [address] Performed By: #### A LLBG ####[facility] LABCLIA [id number] [place] [address] [place] Oxyhemoglobin (BldA) [Mass fraction] 98 % Normal 95-98 [facility] Comment on above: Order Comment: Speci men Type: ARTERIAL BLOOD SPECIMENOrdering Facility: [facility] Address: [address] [place] [address] Performed By: #### A LLBG ####[facility] LABCLIA [id number] [place] [address] [place] pH (Bld) 7.37 [pH] Normal 7.35-7.45 [facility] Comment on above: Order Comment: Speci men Type: ARTERIAL BLOOD SPECIMENOrdering Facility: [facility] Address: [address] [place] [address] Performed By: #### A LLBG ####[facility] LABCLIA [id number] [place] [address] [place] Potassium [Moles/Vol] 4.3 mmol/L Normal 3.5-5.0 [facility] Comment on above: Order Comment: Speci men Type: ARTERIAL BLOOD SPECIMENOrdering Facility: [facility] Address: [address] [place] [address] Performed By: #### A LLBG ####[facility] LABCLIA [id number] [id number] [address] [place] Sodium [Moles/Vol] 138 mmol/L Normal 136-144 [facility] Comment on above: Order Comment: Speci men Type: ARTERIAL BLOOD SPECIMENOrdering Facility: [facility] Address: [address] [place] [address] Performed By: #### A LLBG ####[facility] LABCLIA [id number] [place] [address] [place] Base deficit (BldA) [Moles/Vol] -1 mmol/L Normal -2-0 [facility] Comment on above: Order Comment: Speci men Type: ARTERIAL BLOOD SPECIMENOrdering Facility: [facility] Address: [address] [place] [address] Performed By: #### A LLBG ####[facility] LABCLIA [id number] [place] [address] [place] Body temperature 98.6 [degF] Normal [facility] Comment on above: Order Comment: Speci men Type: ARTERIAL BLOOD SPECIMENOrdering Facility: [facility] Address: [address] [place] [address] Performed By: #### A LLBG ####[facility] LABCLIA [id number] [place] [address] [place] Calcium.ionized (Bld) [Mass/Vol] 1.21 mmol/L Normal 1.08-1.30 [facility] Comment on above: Order Comment: Speci men Type: ARTERIAL BLOOD SPECIMENOrdering Facility: [facility] Address: [address] [place] [address] Performed By: #### A LLBG ####[facility] LABCLIA [id number] [place] [address] [place] Calcium.ionized adjusted to pH 7.4 (BldA) [Moles/Vol] 1.18 mmol/L Normal 1.08-1.30 [facility] Comment on above: Order Comment: Speci men Type: ARTERIAL BLOOD SPECIMENOrdering Facility: [facility] Address: [address] [place] [address] Performed By: #### A LLBG ####[facility] LABCLIA [id number] [place] [address] [place] Carboxyhemoglobin (BldA) [Mass fraction] 0.8 % Normal 0.0-2.0 [facility] Comment on above: Order Comment: Speci men Type: ARTERIAL BLOOD SPECIMENOrdering Facility: [facility] Address: [address] [place] [address] Result Comment: Carb oxyhemoglobin Reference Range for Smokers: 2.0-8.0% Performed By: #### A LLBG ####[facility] LABCLIA [id number] [place] [address] [place] CO2 (Bld) [Partial pressure] 45 mm Hg Normal 36-46 [facility] Comment on above: Order Comment: Speci men Type: ARTERIAL BLOOD SPECIMENOrdering Facility: [facility] Address: [address] [place] [address] Performed By: #### A LLBG ####[facility] LABCLIA [id number] [place] [address] [place] Glucose [Mass/Vol] 134 mg/dL High 60-105 [facility] Comment on above: Order Comment: Speci men Type: ARTERIAL BLOOD SPECIMENOrdering Facility: [facility] Address: [address] [place] [address] Performed By: #### A LLBG ####[facility] LABCLIA [id number] [place] [address] [place] HCO3 (Bld) [Moles/Vol] 24 mmol/L Normal 22-26 [facility] Comment on above: Order Comment: Speci men Type: ARTERIAL BLOOD SPECIMENOrdering Facility: [facility] Address: [address] [place] [address] Performed By: #### A LLBG ####[facility] LABCLIA [id number] [place] [address] [place] Hematocrit (Bld) [Volume fraction] 31.0 % Low 36.0-46.0 [facility] Comment on above: Order Comment: Speci men Type: ARTERIAL BLOOD SPECIMENOrdering Facility: [facility] Address: [address] [place] [address] Performed By: #### A LLBG ####[facility] LABCLIA [id number] [place] [address] [place] Hemoglobin (Bld) [Mass/Vol] 10.0 g/dL Low 11.5-15.5 [facility] Comment on above: Order Comment: Speci men Type: ARTERIAL BLOOD SPECIMENOrdering Facility: [facility] Address: [address] [place] [address] Performed By: #### A LLBG ####[facility] LABCLIA [id number] [place] [address] [place] Lactate [Moles/Vol] 2.0 mmol/L Normal 0.5-2.2 [facility] Comment on above: Order Comment: Speci men Type: ARTERIAL BLOOD SPECIMENOrdering Facility: [facility] Address: [address] [place] [address] Performed By: #### A LLBG ####[facility] LABIA [id number] [place] [address] [place] LITERS 4 Liters/min Normal [facility] Comment on above: Order Comment: Speci men Type: ARTERIAL BLOOD SPECIMENOrdering Facility: [facility] Address: [address] [place] [address] Performed By: #### A LLBG ####[facility] LABCLIA [id number] [place] [address] [place] Methemoglobin (Bld) [Mass fraction] 0.8 % Normal 0.0-1.5 [facility] Comment on above: Order Comment: Speci men Type: ARTERIAL BLOOD SPECIMENOrdering Facility: [facility] Address: [address] [place] [id number] Performed By: #### A LLBG ####[facility] LABCLIA [id number] [place] [id number] [place] O2 THERAPY NC = Nasal Cannula Normal [facility] Comment on above: Order Comment: Speci men Type: ARTERIAL BLOOD SPECIMENOrdering Facility: [facility] Address: [address] [place] [address] Performed By: #### A LLBG ####[facility] LABCLIA [id number] [place] [address] [place] Oxygen (Bld) [Partial pressure] 184 mm Hg High 85-95 [facility] Comment on above: Order Comment: Speci men Type: ARTERIAL BLOOD SPECIMENOrdering Facility: [facility] Address: [address] [place] [address] Performed By: #### A LLBG ####[facility] LABCLIA [id number] [place] [address] [place] Oxyhemoglobin (BldA) [Mass fraction] 98 % Normal 95-98 [facility] Comment on above: Order Comment: Speci men Type: ARTERIAL BLOOD SPECIMENOrdering Facility: [facility] Address: [address] [place] [address] Performed By: #### A LLBG ####[facility] LABCLIA [id number] [place] [id number] [place] pH (Bld) 7.36 [pH] Normal 7.35-7.45 [facility] Comment on above: Order Comment: Speci men Type: ARTERIAL BLOOD SPECIMENOrdering Facility: [facility] Address: [address] [place], [place] [address] Performed By: #### A LLBG ####[facility] LABCLIA [id number] [place] [id number] [place] Potassium [Moles/Vol] 4.1 mmol/L Normal 3.5-5.0 [facility] Comment on above: Order Comment: Speci men Type: ARTERIAL BLOOD SPECIMENOrdering Facility: [facility] Address: [address] [place] [address] Performed By: #### A LLBG ####[facility] LABCLIA [id number] [place] [address] [place] Sodium [Moles/Vol] 139 mmol/L Normal 136-144 [facility] Comment on above: Order Comment: Speci men Type: ARTERIAL BLOOD SPECIMENOrdering Facility: [facility] Address: [address] [place] [address] Performed By: #### A LLBG ####[facility] LABCLIA [id number] [place] [address] [place] Base deficit (BldA) [Moles/Vol] -1 mmol/L Normal -2-0 [facility] Comment on above: Order Comment: Speci men Type: ARTERIAL BLOOD SPECIMENOrdering Facility: [facility] Address: [address] [place] [address] Performed By: #### A LLBG ####[facility] LABCLIA [id number] [place] [address] [place] Body temperature 98.6 [degF] Normal [facility] Comment on above: Order Comment: Speci men Type: ARTERIAL BLOOD SPECIMENOrdering Facility: [facility] Address: [address] [place] [address] Performed By: #### A LLBG ####[facility] LABCLIA [id number] [place] [address] [place] Calcium.ionized (Bld) [Mass/Vol] 1.21 mmol/L Normal 1.08-1.30 [facility] Comment on above: Order Comment: Speci men Type: ARTERIAL BLOOD SPECIMENOrdering Facility: [facility] Address: [address] [place] [address] Performed By: #### A LLBG ####[facility] LABCLIA [id number] [place] [address] [place] Calcium.ionized adjusted to pH 7.4 (BldA) [Moles/Vol] 1.18 mmol/L Normal 1.08-1.30 [facility] Comment on above: Order Comment: Speci men Type: ARTERIAL BLOOD SPECIMENOrdering Facility: [facility] Address: [address] [place] [address] Performed By: #### A LLBG ####[facility] LABIA [id number] [place] [address] [place] Carboxyhemoglobin (BldA) [Mass fraction] 1.1 % Normal 0.0-2.0 [facility] Comment on above: Order Comment: Speci men Type: ARTERIAL BLOOD SPECIMENOrdering Facility: [facility] Address: [address] [place] [address] Result Comment: Carb oxyhemoglobin Reference Range for Smokers: 2.0-8.0% Performed By: #### A LLBG ####[facility] LABIA [id number] [place] [address] [place] CO2 (Bld) [Partial pressure] 42 mm Hg Normal 36-46 [facility] Comment on above: Order Comment: Speci men Type: ARTERIAL BLOOD SPECIMENOrdering Facility: [facility] Address: [address] [place] [address] Performed By: #### A LLBG ####[facility] LABIA [id number] [place] [address] [place] OF [place] Glucose [Mass/Vol] 124 mg/dL High 60-105 [facility] Comment on above: Order Comment: Speci men Type: ARTERIAL BLOOD SPECIMENOrdering Facility: [facility] Address: [address] [place] [address] Performed By: #### A LLBG ####[facility] LABCLIA [id number] [place] [address] [place] HCO3 (Bld) [Moles/Vol] 24 mmol/L Normal 22-26 [facility] Comment on above: Order Comment: Speci men Type: ARTERIAL BLOOD SPECIMENOrdering Facility: [facility] Address: [address] [place] [address] Performed By: #### A LLBG ####[facility] LABCLIA [id number] [place] [address] [place] Hematocrit (Bld) [Volume fraction] 32.4 % Low 36.0-46.0 [facility] Comment on above: Order Comment: Speci men Type: ARTERIAL BLOOD SPECIMENOrdering Facility: [facility] Address: [address] [place] [address] Performed By: #### A LLBG ####[facility] LABCLIA [id number] [place] [address] [place] Hemoglobin (Bld) [Mass/Vol] 10.5 g/dL Low 11.5-15.5 [facility] Comment on above: Order Comment: Speci men Type: ARTERIAL BLOOD SPECIMENOrdering Facility: [facility] Address: [address] [place] [address] Performed By: #### A LLBG ####[facility] LABCLIA [id number] [place] [address] [place] Lactate [Moles/Vol] 3.3 mmol/L High 0.5-2.2 [facility] Comment on above: Order Comment: Speci men Type: ARTERIAL BLOOD SPECIMENOrdering Facility: [facility] Address: [address] [place] [address] Performed By: #### A LLBG ####[facility] LABCLIA [id number] [place] [address] [place] LITERS 4 Liters/min Normal [facility] Comment on above: Order Comment: Speci men Type: ARTERIAL BLOOD SPECIMENOrdering Facility: [facility] Address: [address] [id number] Performed By: #### A LLBG ####[facility] LABCLIA [id number] [place] [id number] [place] Methemoglobin (Bld) [Mass fraction] 1.0 % Normal 0.0-1.5 [facility] Comment on above: Order Comment: Speci men Type: ARTERIAL BLOOD SPECIMENOrdering Facility: [facility] Address: [address] [id number] Performed By: #### A LLBG ####[facility] LABCLIA [id number] [place] [address] [place] O2 THERAPY NC = Nasal Cannula Normal [facility] Comment on above: Order Comment: Speci men Type: ARTERIAL BLOOD SPECIMENOrdering Facility: [facility] Address: [address] [place] [address] Performed By: #### A LLBG ####[facility] LABCLIA [id number] [place] [address] [place] Oxygen (Bld) [Partial pressure] 172 mm Hg High 85-95 [facility] Comment on above: Order Comment: Speci men Type: ARTERIAL BLOOD SPECIMENOrdering Facility: [facility] Address: [address] [id number] Performed By: #### A LLBG ####[facility] LABCLIA [id number] [place] [id number] [place] Oxyhemoglobin (BldA) [Mass fraction] 98 % Normal 95-98 [facility] Comment on above: Order Comment: Speci men Type: ARTERIAL BLOOD SPECIMENOrdering Facility: [facility] Address: [address] [id number] Performed By: #### A LLBG ####[facility] LABCLIA [id number] [place] [id number] [place] pH (Bld) 7.37 [pH] Normal 7.35-7.45 [facility] Comment on above: Order Comment: Speci men Type: ARTERIAL BLOOD SPECIMENOrdering Facility: [facility] Address: [address] [place] [address] Performed By: #### A LLBG ####[facility] LABCLIA [id number] [place] [address] [place] Potassium [Moles/Vol] 3.9 mmol/L Normal 3.5-5.0 [facility] Comment on above: Order Comment: Speci men Type: ARTERIAL BLOOD SPECIMENOrdering Facility: [facility] Address: [address] [place] [address] Performed By: #### A LLBG ####[facility] LABCLIA [id number] [place] [address] [place] Sodium [Moles/Vol] 138 mmol/L Normal 136-144 [facility] Comment on above: Order Comment: Speci men Type: ARTERIAL BLOOD SPECIMENOrdering Facility: [facility] Address: [address] [place] [address] Performed By: #### A LLBG ####[facility] LABCLIA [id number] [place] [address] [place] Base deficit (BldA) [Moles/Vol] -1 mmol/L Normal -2-0 [facility] Comment on above: Order Comment: Speci men Type: ARTERIAL BLOOD SPECIMENOrdering Facility: [facility] Address: [address] [place] [address] Performed By: #### A LLBG ####[facility] LABCLIA [id number] [place] [address] [place] Body temperature 96.08 [degF] Normal [facility] Comment on above: Order Comment: Speci men Type: ARTERIAL BLOOD SPECIMENOrdering Facility: [facility] Address: [address] [place] [address] Performed By: #### A LLBG ####[facility] [id number] [place] [address] [place] Calcium.ionized (Bld) [Mass/Vol] 1.14 mmol/L Normal 1.08-1.30 [facility] Comment on above: Order Comment: Speci men Type: ARTERIAL BLOOD SPECIMENOrdering Facility: [facility] Address: [address] [place] [address] Performed By: #### A LLBG ####[facility] [id number] [place] [address] [place] Calcium.ionized adjusted to pH 7.4 (BldA) [Moles/Vol] 1.13 mmol/L Normal 1.08-1.30 [facility] Comment on above: Order Comment: Speci men Type: ARTERIAL BLOOD SPECIMENOrdering Facility: [facility] Address: [address] [place] [address] Performed By: #### A LLBG ####[facility] [id number] [place] [address] [place] Carboxyhemoglobin (BldA) [Mass fraction] 1.3 % Normal 0.0-2.0 [facility] Comment on above: Order Comment: Speci men Type: ARTERIAL BLOOD SPECIMENOrdering Facility: [facility] Address: [address] [place] [address] Result Comment: Carb oxyhemoglobin Reference Range for Smokers: 2.0-8.0% Performed By: #### A LLBG ####[facility] [id number] [place] [address] [place] CO2 (Bld) [Partial pressure] 39 mm Hg Normal 36-46 [facility] Comment on above: Order Comment: Speci men Type: ARTERIAL BLOOD SPECIMENOrdering Facility: [facility] Address: [address] [place] [address] Performed By: #### A LLBG ####[facility] LABCLIA [id number] [place] [address] [place] CO2 adjusted to patient's actual temperature (Bld) [Partial pressure] 36 mmHg Normal 36-46 [facility] Comment on above: Order Comment: Speci men Type: ARTERIAL BLOOD SPECIMENOrdering Facility: [facility] Address: [address] [place] [address] Performed By: #### A LLBG ####[facility] LABCLIA [id number] [place] [address] [place] FIO2 40 % Normal [facility] Comment on above: Order Comment: Speci men Type: ARTERIAL BLOOD SPECIMENOrdering Facility: [facility] Address: [address] [place] [address] Performed By: #### A LLBG ####[facility] LABCLIA [id number] [place] [address] [place] Glucose [Mass/Vol] 188 mg/dL High 60-105 [facility] Comment on above: Order Comment: Speci men Type: ARTERIAL BLOOD SPECIMENOrdering Facility: [facility] Address: [address] [place] [address] Performed By: #### A LLBG ####[facility] LABCLIA [id number] [place] [address] [place] HCO3 (Bld) [Moles/Vol] 23 mmol/L Normal 22-26 [facility] Comment on above: Order Comment: Speci men Type: ARTERIAL BLOOD SPECIMENOrdering Facility: [facility] Address: [address] [place], [place] [id number] Performed By: #### A LLBG ####[facility] LABCLIA [id number] [place] [address] [place] Hematocrit (Bld) [Volume fraction] 32.1 % Low 36.0-46.0 [facility] Comment on above: Order Comment: Speci men Type: ARTERIAL BLOOD SPECIMENOrdering Facility: [facility] Address: [address] [place] [address] Performed By: #### A LLBG ####[facility] LABCLIA [id number] [place] [address] [place] Hemoglobin (Bld) [Mass/Vol] 10.4 g/dL Low 11.5-15.5 [facility] Comment on above: Order Comment: Speci men Type: ARTERIAL BLOOD SPECIMENOrdering Facility: [facility] Address: [address] [place] [address] Performed By: #### A LLBG ####[facility] LABCLIA [id number] [place] [address] [place] Lactate [Moles/Vol] 2.5 mmol/L High 0.5-2.2 [facility] Comment on above: Order Comment: Speci men Type: ARTERIAL BLOOD SPECIMENOrdering Facility: [facility] Address: [address] [place] [address] Performed By: #### A LLBG ####[facility] LABCLIA [id number] [place] [address] [place] Methemoglobin (Bld) [Mass fraction] 1.5 % Normal 0.0-1.5 [facility] Comment on above: Order Comment: Speci men Type: ARTERIAL BLOOD SPECIMENOrdering Facility: [facility] Address: [address] [place] [address] Performed By: #### A LLBG ####[facility] LABCLIA [id number] [place] [address] [place] O2 THERAPY VENT=Ventilator Normal [facility] Comment on above: Order Comment: Speci men Type: ARTERIAL BLOOD SPECIMENOrdering Facility: [facility] Address: [address] [place] [address] Result Comment: CPAP Performed By: #### A LLBG ####[facility] LABCLIA [id number] [address] [address] [place] Oxygen (Bld) [Partial pressure] 144 mm Hg High 85-95 [facility] Comment on above: Order Comment: Speci men Type: ARTERIAL BLOOD SPECIMENOrdering Facility: [facility] Address: [address] [phone] Performed By: #### A LLBG ####[facility] LABCLIA [id number] [place] [id number] [place] Oxygen adjusted to patient's actual temperature (Bld) [Partial pressure] 137 mmHg High 85-95 [facility] Comment on above: Order Comment: Speci men Type: ARTERIAL BLOOD SPECIMENOrdering Facility: [facility] Address: [address] [place] [address] Performed By: #### A LLBG ####[facility] LABCLIA [id number] [place] [address] [place] Oxyhemoglobin (BldA) [Mass fraction] 96 % Normal 95-98 [facility] Comment on above: Order Comment: Speci men Type: ARTERIAL BLOOD SPECIMENOrdering Facility: [facility] Address: [address] [place] [address] Performed By: #### A LLBG ####[facility] LABCLIA [id number] [place] [address] [place] PEEP/CPAP 5 cmH2O Normal [facility] Comment on above: Order Comment: Speci men Type: ARTERIAL BLOOD SPECIMENOrdering Facility: [facility] Address: [address] [place] [address] Performed By: #### A LLBG ####[facility] LABCLIA [id number] [place] [address] [place] pH (Bld) 7.39 [pH] Normal 7.35-7.45 [facility] Comment on above: Order Comment: Speci men Type: ARTERIAL BLOOD SPECIMENOrdering Facility: [facility] Address: [address] [place] [address] Performed By: #### A LLBG ####[facility] LABCLIA [id number] [place] [address] [place] pH adjusted to patient's actual temperature (Bld) 7.41 Normal 7.35-7.45 [facility] Comment on above: Order Comment: Speci men Type: ARTERIAL BLOOD SPECIMENOrdering Facility: [facility] Address: [address] [place] [address] Performed By: #### A LLBG ####[facility] LABCLIA [id number] [place] [address] [place] PO2 / FIO2 RATIO 360 mmHg Normal >300 [facility] Comment on above: Order Comment: Speci men Type: ARTERIAL BLOOD SPECIMENOrdering Facility: [facility] Address: [address] [place] [address] Performed By: #### A LLBG ####[facility] LABCLIA [id number] [place] [address] [place] Potassium [Moles/Vol] 3.9 mmol/L Normal 3.5-5.0 [facility] Comment on above: Order Comment: Speci men Type: ARTERIAL BLOOD SPECIMENOrdering Facility: [facility] Address: [address] [place] [address] Performed By: #### A LLBG ####[facility] LABCLIA [id number] [place] [address] [place] Sodium [Moles/Vol] 138 mmol/L Normal 136-144 [facility] Comment on above: Order Comment: Speci men Type: ARTERIAL BLOOD SPECIMENOrdering Facility: [facility] Address: [address] [place] [address] Performed By: #### A LLBG ####[facility] LABCLIA [id number] [place] [address] [place] Base deficit (BldA) [Moles/Vol] -1 mmol/L Normal -2-0 [facility] Comment on above: Order Comment: Speci men Type: ARTERIAL BLOOD SPECIMENOrdering Facility: [facility] Address: [address] [place] [address] Performed By: #### A LLBG ####[facility] LABIA [id number] [place] [address] [place] Body temperature 95.72 [degF] Normal [facility] Comment on above: Order Comment: Speci men Type: ARTERIAL BLOOD SPECIMENOrdering Facility: [facility] Address: [address] [place] [address] Performed By: #### A LLBG ####[facility] LABIA [id number] [place] [address] [place] Calcium.ionized (Bld) [Mass/Vol] 1.14 mmol/L Normal 1.08-1.30 [facility] Comment on above: Order Comment: Speci men Type: ARTERIAL BLOOD SPECIMENOrdering Facility: [facility] Address: [address] [place] [address] Performed By: #### A LLBG ####[facility] [id number] [place] [address] [place] Calcium.ionized adjusted to pH 7.4 (BldA) [Moles/Vol] 1.18 mmol/L Normal 1.08-1.30 [facility] Comment on above: Order Comment: Speci men Type: ARTERIAL BLOOD SPECIMENOrdering Facility: [facility] Address: [address] [place] [address] Performed By: #### A LLBG ####[facility] LABIA [id number] [place] [address] [place] Carboxyhemoglobin (BldA) [Mass fraction] 1.6 % Normal 0.0-2.0 [facility] Comment on above: Order Comment: Speci men Type: ARTERIAL BLOOD SPECIMENOrdering Facility: [facility] Address: [address] [place] [address] Result Comment: Carb oxyhemoglobin Reference Range for Smokers: 2.0-8.0% Performed By: #### A LLBG ####[facility] LABCLIA [id number] [place] [address] [place] CO2 (Bld) [Partial pressure] 32 mm Hg Low 36-46 [facility] Comment on above: Order Comment: Speci men Type: ARTERIAL BLOOD SPECIMENOrdering Facility: [facility] Address: [address] [place] [address] Performed By: #### A LLBG ####[facility] LABCLIA [id number] [place] [address] [place] CO2 adjusted to patient's actual temperature (Bld) [Partial pressure] 30 mmHg Low 36-46 [facility] Comment on above: Order Comment: Speci men Type: ARTERIAL BLOOD SPECIMENOrdering Facility: [facility] Address: [address] [place] [address] Performed By: #### A LLBG ####[facility] LABCLIA [id number] [place] [address] [place] Glucose [Mass/Vol] 164 mg/dL High 60-105 [facility] Comment on above: Order Comment: Speci men Type: ARTERIAL BLOOD SPECIMENOrdering Facility: [facility] Address: [address] [place] [address] Performed By: #### A LLBG ####[facility] LABCLIA [id number] [place] [address] [place] HCO3 (Bld) [Moles/Vol] 22 mmol/L Normal 22-26 [facility] Comment on above: Order Comment: Speci men Type: ARTERIAL BLOOD SPECIMENOrdering Facility: [facility] Address: [address] [place] [address] Performed By: #### A LLBG ####[facility] LABCLIA [id number] [place] [address] [place] Hematocrit (Bld) [Volume fraction] 31.5 % Low 36.0-46.0 [facility] Comment on above: Order Comment: Speci men Type: ARTERIAL BLOOD SPECIMENOrdering Facility: [facility] Address: [address] [place] [address] Performed By: #### A LLBG ####[facility] LABCLIA [id number] [place] [address] [place] Hemoglobin (Bld) [Mass/Vol] 10.2 g/dL Low 11.5-15.5 [facility] Comment on above: Order Comment: Speci men Type: ARTERIAL BLOOD SPECIMENOrdering Facility: [facility] Address: [address] [place] [address] Performed By: #### A LLBG ####[facility] LABCLIA [id number] [place] [address] [place] Lactate [Moles/Vol] 2.7 mmol/L High 0.5-2.2 [facility] Comment on above: Order Comment: Speci men Type: ARTERIAL BLOOD SPECIMENOrdering Facility: [facility] Address: [address] [place] [address] Performed By: #### A LLBG ####[facility] LABCLIA [id number] [place] [address] [place] Methemoglobin (Bld) [Mass fraction] 0.9 % Normal 0.0-1.5 [facility] Comment on above: Order Comment: Speci men Type: ARTERIAL BLOOD SPECIMENOrdering Facility: [facility] Address: [address] [place] [address] Performed By: #### A LLBG ####[facility] LABCLIA [id number] [place] [address] [place] O2 THERAPY VENT=Ventilator Normal [facility] Comment on above: Order Comment: Speci men Type: ARTERIAL BLOOD SPECIMENOrdering Facility: [facility] Address: [address] [place] [address] Performed By: #### A LLBG ####[facility] LABCLIA [id number] [place] [address] [place] Oxygen (Bld) [Partial pressure] 141 mm Hg High 85-95 [facility] Comment on above: Order Comment: Speci men Type: ARTERIAL BLOOD SPECIMENOrdering Facility: [facility] Address: [address] [place] [address] Performed By: #### A LLBG ####[facility] LABCLIA [id number] [place] [address] [place] Oxygen adjusted to patient's actual temperature (Bld) [Partial pressure] 134 mmHg High 85-95 [facility] Comment on above: Order Comment: Speci men Type: ARTERIAL BLOOD SPECIMENOrdering Facility: [facility] Address: [address] [place] [address] Performed By: #### A LLBG ####[facility] LABCLIA [id number] [place] [address] [place] Oxyhemoglobin (BldA) [Mass fraction] 97 % Normal 95-98 [facility] Comment on above: Order Comment: Speci men Type: ARTERIAL BLOOD SPECIMENOrdering Facility: [facility] Address: [address] [place] [address] Performed By: #### A LLBG ####[facility] LABCLIA [id number] [place] [address] [place] pH (Bld) 7.45 [pH] Normal 7.35-7.45 [facility] Comment on above: Order Comment: Speci men Type: ARTERIAL BLOOD SPECIMENOrdering Facility: [facility] Address: [address] [place] [address] Performed By: #### A LLBG ####[facility] LABCLIA [id number] [place] [address] [place] pH adjusted to patient's actual temperature (Bld) 7.48 High 7.35-7.45 [facility] Comment on above: Order Comment: Speci men Type: ARTERIAL BLOOD SPECIMENOrdering Facility: [facility] Address: [address] [place] [address] Performed By: #### A LLBG ####[facility] LABCLIA [id number] [place] [address] [place] Potassium [Moles/Vol] 4.3 mmol/L Normal 3.5-5.0 [facility] Comment on above: Order Comment: Speci men Type: ARTERIAL BLOOD SPECIMENOrdering Facility: [facility] Address: [address] [place] [address] Performed By: #### A LLBG ####[facility] LABCLIA [id number] [place] [address] [place] Sodium [Moles/Vol] 139 mmol/L Normal 136-144 [facility] Comment on above: Order Comment: Speci men Type: ARTERIAL BLOOD SPECIMENOrdering Facility: [facility] Address: [address] [place] [address] Performed By: #### A LLBG ####[facility] LABCLIA [id number] [place] [address] [place] Base deficit (BldA) [Moles/Vol] -1 mmol/L Normal -2-0 [facility] Comment on above: Order Comment: Speci men Type: ARTERIAL BLOOD SPECIMENOrdering Facility: [facility] Address: [address] [place] [address] Performed By: #### A LLBG ####[facility] LABCLIA [id number] [place] [address] [place] Body temperature 96.8 [degF] Normal [facility] Comment on above: Order Comment: Speci men Type: ARTERIAL BLOOD SPECIMENOrdering Facility: [facility] Address: [address] [place], [place] [address] Performed By: #### A LLBG ####[facility] [id number] [place] [address] [place] Calcium.ionized (Bld) [Mass/Vol] 1.16 mmol/L Normal 1.08-1.30 [facility] Comment on above: Order Comment: Speci men Type: ARTERIAL BLOOD SPECIMENOrdering Facility: [facility] Address: [address] [place] [address] Performed By: #### A LLBG ####[facility] [id number] [place] [address] [place] Calcium.ionized adjusted to pH 7.4 (BldA) [Moles/Vol] 1.17 mmol/L Normal 1.08-1.30 [facility] Comment on above: Order Comment: Speci men Type: ARTERIAL BLOOD SPECIMENOrdering Facility: [facility] Address: [address] [place] [address] Performed By: #### A LLBG ####[facility] [id number] [place] [address] [place] Carboxyhemoglobin (BldA) [Mass fraction] 0.8 % Normal 0.0-2.0 [facility] Comment on above: Order Comment: Speci men Type: ARTERIAL BLOOD SPECIMENOrdering Facility: [facility] Address: [address] [place] [address] Result Comment: Carb oxyhemoglobin Reference Range for Smokers: 2.0-8.0% Performed By: #### A LLBG ####[facility] [id number] [place] [address] [place] CO2 (Bld) [Partial pressure] 35 mm Hg Low 36-46 [facility] Comment on above: Order Comment: Speci men Type: ARTERIAL BLOOD SPECIMENOrdering Facility: [facility] Address: [address] [place] [address] Performed By: #### A LLBG ####[facility] LABCLIA [id number] [place] [address] [place] CO2 adjusted to patient's actual temperature (Bld) [Partial pressure] 33 mmHg Low 36-46 [facility] Comment on above: Order Comment: Speci men Type: ARTERIAL BLOOD SPECIMENOrdering Facility: [facility] Address: [address] [place] [address] Performed By: #### A LLBG ####[facility] LABCLIA [id number] [place] [address] [place] FIO2 40 % Normal [facility] Comment on above: Order Comment: Speci men Type: ARTERIAL BLOOD SPECIMENOrdering Facility: [facility] Address: [address] [place] [address] Performed By: #### A LLBG ####[facility] LABCLIA [id number] [place] [address] [place] Glucose [Mass/Vol] 133 mg/dL High 60-105 [facility] Comment on above: Order Comment: Speci men Type: ARTERIAL BLOOD SPECIMENOrdering Facility: [facility] Address: [address] [place] [address] Performed By: #### A LLBG ####[facility] LABCLIA [id number] [place] [address] [place] HCO3 (Bld) [Moles/Vol] 22 mmol/L Normal 22-26 [facility] Comment on above: Order Comment: Speci men Type: ARTERIAL BLOOD SPECIMENOrdering Facility: [facility] Address: [address] [place], [place] [id number] Performed By: #### A LLBG ####[facility] LABCLIA [id number] [place] [address] [place] Hematocrit (Bld) [Volume fraction] 29.8 % Low 36.0-46.0 [facility] Comment on above: Order Comment: Speci men Type: ARTERIAL BLOOD SPECIMENOrdering Facility: [facility] Address: [address] [place] [address] Performed By: #### A LLBG ####[facility] LABCLIA [id number] [place] [address] [place] Hemoglobin (Bld) [Mass/Vol] 9.6 g/dL Low 11.5-15.5 [facility] Comment on above: Order Comment: Speci men Type: ARTERIAL BLOOD SPECIMENOrdering Facility: [facility] Address: [address] [place] [address] Performed By: #### A LLBG ####[facility] LABCLIA [id number] [place] [address] [place] Lactate [Moles/Vol] 3.3 mmol/L High 0.5-2.2 [facility] Comment on above: Order Comment: Speci men Type: ARTERIAL BLOOD SPECIMENOrdering Facility: [facility] Address: [address] [place] [address] Performed By: #### A LLBG ####[facility] LABCLIA [id number] [place] [address] [place] Methemoglobin (Bld) [Mass fraction] 1.5 % Normal 0.0-1.5 [facility] Comment on above: Order Comment: Speci men Type: ARTERIAL BLOOD SPECIMENOrdering Facility: [facility] Address: [address] [place] [address] Performed By: #### A LLBG ####[facility] LABCLIA [id number] [place] [address] [place] O2 THERAPY VENT=Ventilator Normal [facility] Comment on above: Order Comment: Speci men Type: ARTERIAL BLOOD SPECIMENOrdering Facility: [facility] Address: [address] [place] [address] Performed By: #### A LLBG ####[facility] LABCLIA [id number] [place] [id number] [place] Oxygen (Bld) [Partial pressure] 134 mm Hg High 85-95 [facility] Comment on above: Order Comment: Speci men Type: ARTERIAL BLOOD SPECIMENOrdering Facility: [facility] Address: [address] [place] [address] Performed By: #### A LLBG ####[facility] LABCLIA [id number] [place] [address] [place] Oxygen adjusted to patient's actual temperature (Bld) [Partial pressure] 129 mmHg High 85-95 [facility] Comment on above: Order Comment: Speci men Type: ARTERIAL BLOOD SPECIMENOrdering Facility: [facility] Address: [address] [place] [address] Performed By: #### A LLBG ####[facility] LABCLIA [id number] [place] [address] [place] Oxyhemoglobin (BldA) [Mass fraction] 96 % Normal 95-98 [facility] Comment on above: Order Comment: Speci men Type: ARTERIAL BLOOD SPECIMENOrdering Facility: [facility] Address: [address] [place] [address] Performed By: #### A LLBG ####[facility] LABCLIA [id number] [place] [address] [place] PEEP/CPAP 8 cmH2O Normal [facility] Comment on above: Order Comment: Speci men Type: ARTERIAL BLOOD SPECIMENOrdering Facility: [facility] Address: [address] [place] [address] Performed By: #### A LLBG ####[facility] LABCLIA [id number] [place] [address] [place] pH (Bld) 7.42 [pH] Normal 7.35-7.45 [facility] Comment on above: Order Comment: Speci men Type: ARTERIAL BLOOD SPECIMENOrdering Facility: [facility] Address: [address] [place] [address] Performed By: #### A LLBG ####[facility] LABCLIA [id number] [place] [address] [place] pH adjusted to patient's actual temperature (Bld) 7.43 Normal 7.35-7.45 [facility] Comment on above: Order Comment: Speci men Type: ARTERIAL BLOOD SPECIMENOrdering Facility: [facility] Address: [address] [place] [address] Performed By: #### A LLBG ####[facility] LABCLIA [id number] [place] [address] [place] PO2 / FIO2 RATIO 335 mmHg Normal >300 [facility] Comment on above: Order Comment: Speci men Type: ARTERIAL BLOOD SPECIMENOrdering Facility: [facility] Address: [address] [place] [address] Performed By: #### A LLBG ####[facility] LABCLIA [id number] [place] [address] [place] Potassium [Moles/Vol] 4.0 mmol/L Normal 3.5-5.0 [facility] Comment on above: Order Comment: Speci men Type: ARTERIAL BLOOD SPECIMENOrdering Facility: [facility] Address: [address] [place] [address] Performed By: #### A LLBG ####[facility] LABCLIA [id number] [place] [address] [place] Sodium [Moles/Vol] 139 mmol/L Normal 136-144 [facility] Comment on above: Order Comment: Speci men Type: ARTERIAL BLOOD SPECIMENOrdering Facility: [facility] Address: [address] [place] [address] Performed By: #### A LLBG ####[facility] LABCLIA [id number] [place] [address] [place] Base deficit (BldA) [Moles/Vol] -2 mmol/L Normal -2-0 [facility] Comment on above: Order Comment: Speci men Type: ARTERIAL BLOOD SPECIMENOrdering Facility: [facility] Address: [address] [place] [address] Performed By: #### A LLBG ####[facility] LABIA [id number] [place] [address] [place] Body temperature 98.6 [degF] Normal [facility] Comment on above: Order Comment: Speci men Type: ARTERIAL BLOOD SPECIMENOrdering Facility: [facility] Address: [address] [place] [address] Performed By: #### A LLBG ####[facility] LABIA [id number] [place] [address] [place] Calcium.ionized (Bld) [Mass/Vol] 1.13 mmol/L Normal 1.08-1.30 [facility] Comment on above: Order Comment: Speci men Type: ARTERIAL BLOOD SPECIMENOrdering Facility: [facility] Address: [address] [place] [address] Performed By: #### A LLBG ####[facility] [id number] [place] [address] [place] Calcium.ionized adjusted to pH 7.4 (BldA) [Moles/Vol] 1.13 mmol/L Normal 1.08-1.30 [facility] Comment on above: Order Comment: Speci men Type: ARTERIAL BLOOD SPECIMENOrdering Facility: [facility] Address: [address] [place] [address] Performed By: #### A LLBG ####[facility] LABIA [id number] [place] [address] [place] Carboxyhemoglobin (BldA) [Mass fraction] 0.7 % Normal 0.0-2.0 [facility] Comment on above: Order Comment: Speci men Type: ARTERIAL BLOOD SPECIMENOrdering Facility: [facility] Address: [address] [place], [place] [id number] Result Comment: Carb oxyhemoglobin Reference Range for Smokers: 2.0-8.0% Performed By: #### A LLBG ####[facility] LABCLIA [id number] [place] [address] [place] CO2 (Bld) [Partial pressure] 37 mm Hg Normal 36-46 [facility] Comment on above: Order Comment: Speci men Type: ARTERIAL BLOOD SPECIMENOrdering Facility: [facility] Address: [address] [place] [address] Performed By: #### A LLBG ####[facility] LABCLIA [id number] [place] [address] [place] FIO2 40 % Normal [facility] Comment on above: Order Comment: Speci men Type: ARTERIAL BLOOD SPECIMENOrdering Facility: [facility] Address: [address] [place] [address] Performed By: #### A LLBG ####[facility] LABCLIA [id number] [place] [address] [place] Glucose [Mass/Vol] 122 mg/dL High 60-105 [facility] Comment on above: Order Comment: Speci men Type: ARTERIAL BLOOD SPECIMENOrdering Facility: [facility] Address: [address] [place] [address] Performed By: #### A LLBG ####[facility] LABCLIA [id number] [place] [address] [place] HCO3 (Bld) [Moles/Vol] 22 mmol/L Normal 22-26 [facility] Comment on above: Order Comment: Speci men Type: ARTERIAL BLOOD SPECIMENOrdering Facility: [facility] Address: [address] [place] [address] Performed By: #### A LLBG ####[facility] LABCLIA [id number] [place] [address] [place] Hematocrit (Bld) [Volume fraction] 31.2 % Low 36.0-46.0 [facility] Comment on above: Order Comment: Speci men Type: ARTERIAL BLOOD SPECIMENOrdering Facility: [facility] Address: [address] [place] [address] Performed By: #### A LLBG ####[facility] LABIA [id number] [place] [address] [place] Hemoglobin (Bld) [Mass/Vol] 10.1 g/dL Low 11.5-15.5 [facility] Comment on above: Order Comment: Speci men Type: ARTERIAL BLOOD SPECIMENOrdering Facility: [facility] Address: [address] [place] [address] Performed By: #### A LLBG ####[facility] LABIA [id number] [place] [address] [place] Lactate [Moles/Vol] 4.4 mmol/L High 0.5-2.2 [facility] Comment on above: Order Comment: Speci men Type: ARTERIAL BLOOD SPECIMENOrdering Facility: [facility] Address: [address] [place] [address] Performed By: #### A LLBG ####[facility] LABIA [id number] [place] [address] [place] Methemoglobin (Bld) [Mass fraction] 1.5 % Normal 0.0-1.5 [facility] Comment on above: Order Comment: Speci men Type: ARTERIAL BLOOD SPECIMENOrdering Facility: [facility] Address: [address] [place] [address] Performed By: #### A LLBG ####[facility] LABIA [id number] [place] [address] [place] O2 THERAPY VENT=Ventilator Normal [facility] Comment on above: Order Comment: Speci men Type: ARTERIAL BLOOD SPECIMENOrdering Facility: [facility] Address: [address] [place] [address] Performed By: #### A LLBG ####[facility] LABCLIA [id number] [place] [address] [place] Oxygen (Bld) [Partial pressure] 127 mm Hg High 85-95 [facility] Comment on above: Order Comment: Speci men Type: ARTERIAL BLOOD SPECIMENOrdering Facility: [facility] Address: [address] [place] [address] Performed By: #### A LLBG ####[facility] LABCLIA [id number] [place] [address] [place] Oxyhemoglobin (BldA) [Mass fraction] 97 % Normal 95-98 [facility] Comment on above: Order Comment: Speci men Type: ARTERIAL BLOOD SPECIMENOrdering Facility: [facility] Address: [address] [place] [address] Performed By: #### A LLBG ####[facility] LABCLIA [id number] [place] [address] [place] PEEP/CPAP 8 cmH2O Normal [facility] Comment on above: Order Comment: Speci men Type: ARTERIAL BLOOD SPECIMENOrdering Facility: [facility] Address: [address] [place] [address] Performed By: #### A LLBG ####[facility] LABCLIA [id number] [place] [address] [place] pH (Bld) 7.40 [pH] Normal 7.35-7.45 [facility] Comment on above: Order Comment: Speci men Type: ARTERIAL BLOOD SPECIMENOrdering Facility: [facility] Address: [address] [place] [address] Performed By: #### A LLBG ####[facility] LABCLIA [id number] [place] [address] [place] PO2 / FIO2 RATIO 318 mmHg Normal >300 [facility] Comment on above: Order Comment: Speci men Type: ARTERIAL BLOOD SPECIMENOrdering Facility: [facility] Address: [address] [place] [address] Performed By: #### A LLBG ####[facility] LABCLIA [id number] [place] [address] [place] Potassium [Moles/Vol] 3.9 mmol/L Normal 3.5-5.0 [facility] Comment on above: Order Comment: Speci men Type: ARTERIAL BLOOD SPECIMENOrdering Facility: [facility] Address: [address] [place] [address] Performed By: #### A LLBG ####[facility] LABCLIA [id number] [place] [address] [place] Sodium [Moles/Vol] 137 mmol/L Normal 136-144 [facility] Comment on above: Order Comment: Speci men Type: ARTERIAL BLOOD SPECIMENOrdering Facility: [facility] Address: [address] [place] [address] Performed By: #### A LLBG ####[facility] LABCLIA [id number] [place] [address] [place] Base deficit (BldA) [Moles/Vol] -3 mmol/L Low -2-0 [facility] Comment on above: Order Comment: Speci men Type: ARTERIAL BLOOD SPECIMENOrdering Facility: [facility] Address: [address] [place] [address] Performed By: #### A LLBG ####[facility] LABCLIA [id number] [place] [address] [place] Body temperature 97.34 [degF] Normal [facility] Comment on above: Order Comment: Speci men Type: ARTERIAL BLOOD SPECIMENOrdering Facility: [facility] Address: [address] [place] [address] Performed By: #### A LLBG ####[facility] LABCLIA [id number] [place] [address] [place] Calcium.ionized (Bld) [Mass/Vol] 1.14 mmol/L Normal 1.08-1.30 [facility] Comment on above: Order Comment: Speci men Type: ARTERIAL BLOOD SPECIMENOrdering Facility: [facility] Address: [address] [place] [address] Performed By: #### A LLBG ####[facility] LABCLIA [id number] [address] [place] Calcium.ionized adjusted to pH 7.4 (BldA) [Moles/Vol] 1.13 mmol/L Normal 1.08-1.30 [facility] Comment on above: Order Comment: Speci men Type: ARTERIAL BLOOD SPECIMENOrdering Facility: [facility] Address: [address] [place] [address] Performed By: #### A LLBG ####[facility] LABCLIA [id number] [address] [place] Carboxyhemoglobin (BldA) [Mass fraction] 1.0 % Normal 0.0-2.0 [facility] Comment on above: Order Comment: Speci men Type: ARTERIAL BLOOD SPECIMENOrdering Facility: [facility] Address: [address] [place] [address] Result Comment: Carb oxyhemoglobin Reference Range for Smokers: 2.0-8.0% Performed By: #### A LLBG ####[facility] LABCLIA [id number] [place] [address] [place] CO2 (Bld) [Partial pressure] 36 mm Hg Normal 36-46 [facility] Comment on above: Order Comment: Speci men Type: ARTERIAL BLOOD SPECIMENOrdering Facility: [facility] Address: [address] [place] [address] Performed By: #### A LLBG ####[facility] LABCLIA [id number] [place] [address] [place] CO2 adjusted to patient's actual temperature (Bld) [Partial pressure] 35 mmHg Low 36-46 [facility] Comment on above: Order Comment: Speci men Type: ARTERIAL BLOOD SPECIMENOrdering Facility: [facility] Address: [address] [place] [address] Performed By: #### A LLBG ####[facility] LABCLIA [id number] [place] [address] [place] FIO2 40 % Normal [facility] Comment on above: Order Comment: Speci men Type: ARTERIAL BLOOD SPECIMENOrdering Facility: [facility] Address: [address] [place] [address] Performed By: #### A LLBG ####[facility] LABCLIA [id number] [place] [address] [place] Glucose [Mass/Vol] 124 mg/dL High 60-105 [facility] Comment on above: Order Comment: Speci men Type: ARTERIAL BLOOD SPECIMENOrdering Facility: [facility] Address: [address] [place] [address] Performed By: #### A LLBG ####[facility] LABCLIA [id number] [place] [address] [place] HCO3 (Bld) [Moles/Vol] 21 mmol/L Low 22-26 [facility] Comment on above: Order Comment: Speci men Type: ARTERIAL BLOOD SPECIMENOrdering Facility: [facility] Address: [address] [place] [address] Performed By: #### A LLBG ####[facility] LABCLIA [id number] [place] [address] [place] Hematocrit (Bld) [Volume fraction] 28.2 % Low 36.0-46.0 [facility] Comment on above: Order Comment: Speci men Type: ARTERIAL BLOOD SPECIMENOrdering Facility: [facility] Address: [address] [place] [address] Performed By: #### A LLBG ####[facility] LABCLIA [id number] [place] [address] [place] Hemoglobin (Bld) [Mass/Vol] 9.1 g/dL Low 11.5-15.5 [facility] Comment on above: Order Comment: Speci men Type: ARTERIAL BLOOD SPECIMENOrdering Facility: [facility] Address: [address] [place] [address] Performed By: #### A LLBG ####[facility] LABIA [id number] [place] [address] [place] Lactate [Moles/Vol] 4.5 mmol/L High 0.5-2.2 [facility] Comment on above: Order Comment: Speci men Type: ARTERIAL BLOOD SPECIMENOrdering Facility: [facility] Address: [address] [place] [address] Performed By: #### A LLBG ####[facility] LABIA [id number] [place] [address] [place] Methemoglobin (Bld) [Mass fraction] 0.9 % Normal 0.0-1.5 [facility] Comment on above: Order Comment: Speci men Type: ARTERIAL BLOOD SPECIMENOrdering Facility: [facility] Address: [address] [place] [address] Performed By: #### A LLBG ####[facility] LABIA [id number] [place] [address] [place] O2 THERAPY VENT=Ventilator Normal [facility] Comment on above: Order Comment: Speci men Type: ARTERIAL BLOOD SPECIMENOrdering Facility: [facility] Address: [address] [place] [address] Performed By: #### A LLBG ####[facility] LABIA [id number] [place] [address] [place] Oxygen (Bld) [Partial pressure] 165 mm Hg High 85-95 [facility] Comment on above: Order Comment: Speci men Type: ARTERIAL BLOOD SPECIMENOrdering Facility: [facility] Address: [address] [place] [address] Performed By: #### A LLBG ####[facility] LABCLIA [id number] [place] [address] [place] Oxygen adjusted to patient's actual temperature (Bld) [Partial pressure] 162 mmHg High 85-95 [facility] Comment on above: Order Comment: Speci men Type: ARTERIAL BLOOD SPECIMENOrdering Facility: [facility] Address: [address] [place] [address] Performed By: #### A LLBG ####[facility] LABCLIA [id number] [place] [address] [place] Oxyhemoglobin (BldA) [Mass fraction] 98 % Normal 95-98 [facility] Comment on above: Order Comment: Speci men Type: ARTERIAL BLOOD SPECIMENOrdering Facility: [facility] Address: [address] [place] [address] Performed By: #### A LLBG ####[facility] LABCLIA [id number] [place] [address] [place] pH (Bld) 7.39 [pH] Normal 7.35-7.45 [facility] Comment on above: Order Comment: Speci men Type: ARTERIAL BLOOD SPECIMENOrdering Facility: [facility] Address: [address] [place] [address] Performed By: #### A LLBG ####[facility] LABCLIA [id number] [place] [address] [place] pH adjusted to patient's actual temperature (Bld) 7.40 Normal 7.35-7.45 [facility] Comment on above: Order Comment: Speci men Type: ARTERIAL BLOOD SPECIMENOrdering Facility: [facility] Address: [address] [place], [place] [address] Performed By: #### A LLBG ####[facility] LABCLIA [id number] [place] [address] [place] PO2 / FIO2 RATIO 413 mmHg Normal >300 [facility] Comment on above: Order Comment: Speci men Type: ARTERIAL BLOOD SPECIMENOrdering Facility: [facility] Address: [address] [place] [address] Performed By: #### A LLBG ####[facility] LABCLIA [id number] [place] [address] [place] Potassium [Moles/Vol] 3.9 mmol/L Normal 3.5-5.0 [facility] Comment on above: Order Comment: Speci men Type: ARTERIAL BLOOD SPECIMENOrdering Facility: [facility] Address: [address] [place] [address] Performed By: #### A LLBG ####[facility] LABCLIA [id number] [place] [address] [place] Sodium [Moles/Vol] 138 mmol/L Normal 136-144 [facility] Comment on above: Order Comment: Speci men Type: ARTERIAL BLOOD SPECIMENOrdering Facility: [facility] Address: [address] [place] [address] Performed By: #### A LLBG ####[facility] LABCLIA [id number] [place] [address] [place] Base deficit (BldA) [Moles/Vol] -6 mmol/L Low -2-0 [facility] Comment on above: Order Comment: Speci men Type: ARTERIAL BLOOD SPECIMENOrdering Facility: [facility] Address: [address] [place] [address] Performed By: #### A LLBG ####[facility] LABCLIA [id number] [place] [address] [place] Calcium.ionized (Bld) [Mass/Vol] 1.15 mmol/L Normal 1.08-1.30 [facility] Comment on above: Order Comment: Speci men Type: ARTERIAL BLOOD SPECIMENOrdering Facility: [facility] Address: [address] [place] [address] Performed By: #### A LLBG ####[facility] LABIA [id number] [place] [address] [place] Calcium.ionized adjusted to pH 7.4 (BldA) [Moles/Vol] 1.10 mmol/L Normal 1.08-1.30 [facility] Comment on above: Order Comment: Speci men Type: ARTERIAL BLOOD SPECIMENOrdering Facility: [facility] Address: [address] [place] [address] Performed By: #### A LLBG ####[facility] LABIA [id number] [place] [address] [place] Carboxyhemoglobin (BldA) [Mass fraction] 1.3 % Normal 0.0-2.0 [facility] Comment on above: Order Comment: Speci men Type: ARTERIAL BLOOD SPECIMENOrdering Facility: [facility] Address: [address] [place] [address] Result Comment: Carb oxyhemoglobin Reference Range for Smokers: 2.0-8.0% Performed By: #### A LLBG ####[facility] LABIA [id number] [place] [address] [place] CO2 (Bld) [Partial pressure] 39 mm Hg Normal 36-46 [facility] Comment on above: Order Comment: Speci men Type: ARTERIAL BLOOD SPECIMENOrdering Facility: [facility] Address: [address] [place] [address] Performed By: #### A LLBG ####[facility] LABIA [id number] [place] [address] [place] CO2 adjusted to patient's actual temperature (Bld) [Partial pressure] 39 mmHg Normal 36-46 [facility] Comment on above: Order Comment: Speci men Type: ARTERIAL BLOOD SPECIMENOrdering Facility: [facility] Address: [address] [place] [address] Performed By: #### A LLBG ####[facility] LABCLIA [id number] [place] [address] [place] Glucose [Mass/Vol] 147 mg/dL High 60-105 [facility] Comment on above: Order Comment: Speci men Type: ARTERIAL BLOOD SPECIMENOrdering Facility: [facility] Address: [address] [place] [address] Performed By: #### A LLBG ####[facility] LABCLIA [id number] [place] [address] [place] HCO3 (Bld) [Moles/Vol] 19 mmol/L Low 22-26 [facility] Comment on above: Order Comment: Speci men Type: ARTERIAL BLOOD SPECIMENOrdering Facility: [facility] Address: [address] [place] [address] Performed By: #### A LLBG ####[facility] LABCLIA [id number] [place] [address] [place] Hematocrit (Bld) [Volume fraction] 31.3 % Low 36.0-46.0 [facility] Comment on above: Order Comment: Speci men Type: ARTERIAL BLOOD SPECIMENOrdering Facility: [facility] Address: [address] [place] [address] Performed By: #### A LLBG ####[facility] LABCLIA [id number] [place] [address] [place] Hemoglobin (Bld) [Mass/Vol] 10.1 g/dL Low 11.5-15.5 [facility] Comment on above: Order Comment: Speci men Type: ARTERIAL BLOOD SPECIMENOrdering Facility: [facility] Address: [address] [place] [address] Performed By: #### A LLBG ####[facility] LABCLIA [id number] [place] [address] [place] Lactate [Moles/Vol] 4.9 mmol/L High 0.5-2.2 [facility] Comment on above: Order Comment: Speci men Type: ARTERIAL BLOOD SPECIMENOrdering Facility: [facility] Address: [address] [id number] Performed By: #### A LLBG ####[facility] LABCLIA [id number] [address] [address] [place] Methemoglobin (Bld) [Mass fraction] 2.0 % High 0.0-1.5 [facility] Comment on above: Order Comment: Speci men Type: ARTERIAL BLOOD SPECIMENOrdering Facility: [facility] Address: [address] [place] [address] Performed By: #### A LLBG ####[facility] LABCLIA [id number] [place] [address] [place] Oxygen (Bld) [Partial pressure] 192 mm Hg High 85-95 [facility] Comment on above: Order Comment: Speci men Type: ARTERIAL BLOOD SPECIMENOrdering Facility: [facility] Address: [address] [place], [place] [id number] Performed By: #### A LLBG ####[facility] LABCLIA [id number] [place] [address] [place] Oxygen adjusted to patient's actual temperature (Bld) [Partial pressure] 192 mmHg High 85-95 [facility] Comment on above: Order Comment: Speci men Type: ARTERIAL BLOOD SPECIMENOrdering Facility: [facility] Address: [address] [id number] Performed By: #### A LLBG ####[facility] LABCLIA [id number] [place] [id number] [place] Oxyhemoglobin (BldA) [Mass fraction] 96 % Normal 95-98 [facility] Comment on above: Order Comment: Speci men Type: ARTERIAL BLOOD SPECIMENOrdering Facility: [facility] Address: [address] [id number] Performed By: #### A LLBG ####[facility] LABCLIA [id number] [place] [address] [place] pH (Bld) 7.31 [pH] Low 7.35-7.45 [facility] Comment on above: Order Comment: Speci men Type: ARTERIAL BLOOD SPECIMENOrdering Facility: [facility] Address: [address] [place] [address] Performed By: #### A LLBG ####[facility] LABIA [id number] [place] [address] [place] pH adjusted to patient's actual temperature (Bld) 7.31 Low 7.35-7.45 [facility] Comment on above: Order Comment: Speci men Type: ARTERIAL BLOOD SPECIMENOrdering Facility: [facility] Address: [address] [place] [address] Performed By: #### A LLBG ####[facility] LABIA [id number] [place] [address] [place] Potassium [Moles/Vol] 4.0 mmol/L Normal 3.5-5.0 [facility] Comment on above: Order Comment: Speci men Type: ARTERIAL BLOOD SPECIMENOrdering Facility: [facility] Address: [address] [place] [address] Performed By: #### A LLBG ####[facility] LABIA [id number] [place] [address] [place] Sodium [Moles/Vol] 135 mmol/L Low 136-144 [facility] Comment on above: Order Comment: Speci men Type: ARTERIAL BLOOD SPECIMENOrdering Facility: [facility] Address: [address] [place] [address] Performed By: #### A LLBG ####[facility] LABIA [id number] [place] [address] [place] Base deficit (BldA) [Moles/Vol] -6 mmol/L Low -2-0 [facility] Comment on above: Order Comment: Speci men Type: ARTERIAL BLOOD SPECIMENOrdering Facility: [facility] Address: [address] [place] [address] Performed By: #### A LLBG ####[facility] LABCLIA [id number] [place] [address] [place] Calcium.ionized (Bld) [Mass/Vol] 1.15 mmol/L Normal 1.08-1.30 [facility] Comment on above: Order Comment: Speci men Type: ARTERIAL BLOOD SPECIMENOrdering Facility: [facility] Address: [address] [place] [address] Performed By: #### A LLBG ####[facility] LABCLIA [id number] [place] [address] [place] Calcium.ionized adjusted to pH 7.4 (BldA) [Moles/Vol] 1.10 mmol/L Normal 1.08-1.30 [facility] Comment on above: Order Comment: Speci men Type: ARTERIAL BLOOD SPECIMENOrdering Facility: [facility] Address: [address] [place] [address] Performed By: #### A LLBG ####[facility] LABIA [id number] [place] [address] [place] Carboxyhemoglobin (BldA) [Mass fraction] 1.3 % Normal 0.0-2.0 [facility] Comment on above: Order Comment: Speci men Type: ARTERIAL BLOOD SPECIMENOrdering Facility: [facility] Address: [address] [place] [address] Result Comment: Carb oxyhemoglobin Reference Range for Smokers: 2.0-8.0% Performed By: #### A LLBG ####[facility] LABCLIA [id number] [place] [address] [place] CO2 (Bld) [Partial pressure] 40 mm Hg Normal 36-46 [facility] Comment on above: Order Comment: Speci men Type: ARTERIAL BLOOD SPECIMENOrdering Facility: [facility] Address: [address] [place] [address] Performed By: #### A LLBG ####[facility] LABCLIA [id number] [place] [address] [place] CO2 adjusted to patient's actual temperature (Bld) [Partial pressure] 40 mmHg Normal 36-46 [facility] Comment on above: Order Comment: Speci men Type: ARTERIAL BLOOD SPECIMENOrdering Facility: [facility] Address: [address] [place] [address] Performed By: #### A LLBG ####[facility] LABCLIA [id number] [place] [address] [place] Glucose [Mass/Vol] 183 mg/dL High 60-105 [facility] Comment on above: Order Comment: Speci men Type: ARTERIAL BLOOD SPECIMENOrdering Facility: [facility] Address: [address] [place] [address] Performed By: #### A LLBG ####[facility] LABCLIA [id number] [place] [address] [place] HCO3 (Bld) [Moles/Vol] 19 mmol/L Low 22-26 [facility] Comment on above: Order Comment: Speci men Type: ARTERIAL BLOOD SPECIMENOrdering Facility: [facility] Address: [address] [place] [address] Performed By: #### A LLBG ####[facility] LABCLIA [id number] [place] [address] [place] Hematocrit (Bld) [Volume fraction] 30.9 % Low 36.0-46.0 [facility] Comment on above: Order Comment: Speci men Type: ARTERIAL BLOOD SPECIMENOrdering Facility: [facility] Address: [address] [place] [address] Performed By: #### A LLBG ####[facility] LABCLIA [id number] [place] [address] [place] Hemoglobin (Bld) [Mass/Vol] 10.0 g/dL Low 11.5-15.5 [facility] Comment on above: Order Comment: Speci men Type: ARTERIAL BLOOD SPECIMENOrdering Facility: [facility] Address: [address] [place] [address] Performed By: #### A LLBG ####[facility] LABCLIA [id number] [place] [address] [place] Lactate [Moles/Vol] 4.6 mmol/L High 0.5-2.2 [facility] Comment on above: Order Comment: Speci men Type: ARTERIAL BLOOD SPECIMENOrdering Facility: [facility] Address: [address] [place] [address] Performed By: #### A LLBG ####[facility] LABCLIA [id number] [place] [address] [place] Methemoglobin (Bld) [Mass fraction] 2.0 % High 0.0-1.5 [facility] Comment on above: Order Comment: Speci men Type: ARTERIAL BLOOD SPECIMENOrdering Facility: [facility] Address: [address] [place] [address] Performed By: #### A LLBG ####[facility] LABCLIA [id number] [place] [address] [place] Oxygen (Bld) [Partial pressure] 278 mm Hg High 85-95 [facility] Comment on above: Order Comment: Speci men Type: ARTERIAL BLOOD SPECIMENOrdering Facility: [facility] Address: [address] [place] [address] Performed By: #### A LLBG ####[facility] LABCLIA [id number] [place] [id number] [place] Oxygen adjusted to patient's actual temperature (Bld) [Partial pressure] 278 mmHg High 85-95 [facility] Comment on above: Order Comment: Speci men Type: ARTERIAL BLOOD SPECIMENOrdering Facility: [facility] Address: [address] [place] [address] Performed By: #### A LLBG ####[facility] LABCLIA [id number] [place] [address] [place] Oxyhemoglobin (BldA) [Mass fraction] 96 % Normal 95-98 [facility] Comment on above: Order Comment: Speci men Type: ARTERIAL BLOOD SPECIMENOrdering Facility: [facility] Address: [address] [place] [address] Performed By: #### A LLBG ####[facility] LABCLIA [id number] [place] [address] [place] pH (Bld) 7.31 [pH] Low 7.35-7.45 [facility] Comment on above: Order Comment: Speci men Type: ARTERIAL BLOOD SPECIMENOrdering Facility: [facility] Address: [address] [place] [address] Performed By: #### A LLBG ####[facility] LABCLIA [id number] [place] [address] [place] pH adjusted to patient's actual temperature (Bld) 7.31 Low 7.35-7.45 [facility] Comment on above: Order Comment: Speci men Type: ARTERIAL BLOOD SPECIMENOrdering Facility: [facility] Address: [address] [place] [address] Performed By: #### A LLBG ####[facility] LABCLIA [id number] [place] [address] [place] Potassium [Moles/Vol] 3.4 mmol/L Low 3.5-5.0 [facility] Comment on above: Order Comment: Speci men Type: ARTERIAL BLOOD SPECIMENOrdering Facility: [facility] Address: [address] [place] [address] Performed By: #### A LLBG ####[facility] LABCLIA [id number] [place] [address] [place] Sodium [Moles/Vol] 133 mmol/L Low 136-144 [facility] Comment on above: Order Comment: Speci men Type: ARTERIAL BLOOD SPECIMENOrdering Facility: [facility] Address: [address] [place] [address] Performed By: #### A LLBG ####[facility] LABIA [id number] [place] [address] [place] Base deficit (BldA) [Moles/Vol] -3 mmol/L Low -2-0 [facility] Comment on above: Order Comment: Speci men Type: ARTERIAL BLOOD SPECIMENOrdering Facility: [facility] Address: [address] [place] [address] Performed By: #### A LLBG ####[facility] LABIA [id number] [place] [address] [place] Calcium.ionized (Bld) [Mass/Vol] 1.10 mmol/L Normal 1.08-1.30 [facility] Comment on above: Order Comment: Speci men Type: ARTERIAL BLOOD SPECIMENOrdering Facility: [facility] Address: [address] [place] [address] Performed By: #### A LLBG ####[facility] LABIA [id number] [place] [address] [place] Calcium.ionized adjusted to pH 7.4 (BldA) [Moles/Vol] 1.08 mmol/L Normal 1.08-1.30 [facility] Comment on above: Order Comment: Speci men Type: ARTERIAL BLOOD SPECIMENOrdering Facility: [facility] Address: [address] [place] [address] Performed By: #### A LLBG ####[facility] LABIA [id number] [place] [address] [place] Carboxyhemoglobin (BldA) [Mass fraction] 1.5 % Normal 0.0-2.0 [facility] Comment on above: Order Comment: Speci men Type: ARTERIAL BLOOD SPECIMENOrdering Facility: [facility] Address: [address] [place] [address] Result Comment: Carb oxyhemoglobin Reference Range for Smokers: 2.0-8.0% Performed By: #### A LLBG ####[facility] LABCLIA [id number] [place] [address] [place] CO2 (Bld) [Partial pressure] 38 mm Hg Normal 36-46 [facility] Comment on above: Order Comment: Speci men Type: ARTERIAL BLOOD SPECIMENOrdering Facility: [facility] Address: [address] [place] [address] Performed By: #### A LLBG ####[facility] LABCLIA [id number] [place] [address] [place] CO2 adjusted to patient's actual temperature (Bld) [Partial pressure] 38 mmHg Normal 36-46 [facility] Comment on above: Order Comment: Speci men Type: ARTERIAL BLOOD SPECIMENOrdering Facility: [facility] Address: [address] [place] [address] Performed By: #### A LLBG ####[facility] LABCLIA [id number] [place] [address] [place] Glucose [Mass/Vol] 224 mg/dL High 60-105 [facility] Comment on above: Order Comment: Speci men Type: ARTERIAL BLOOD SPECIMENOrdering Facility: [facility] Address: [address] [place] [address] Performed By: #### A LLBG ####[facility] LABCLIA [id number] [place] [address] [place] HCO3 (Bld) [Moles/Vol] 22 mmol/L Normal 22-26 [facility] Comment on above: Order Comment: Speci men Type: ARTERIAL BLOOD SPECIMENOrdering Facility: [facility] Address: [address] [place] [address] Performed By: #### A LLBG ####[facility] LABCLIA [id number] [place] [address] [place] Hematocrit (Bld) [Volume fraction] 29.8 % Low 36.0-46.0 [facility] Comment on above: Order Comment: Speci men Type: ARTERIAL BLOOD SPECIMENOrdering Facility: [facility] Address: [address] [place] [address] Performed By: #### A LLBG ####[facility] LABCLIA [id number] [place] [address] [place] Hemoglobin (Bld) [Mass/Vol] 9.6 g/dL Low 11.5-15.5 [facility] Comment on above: Order Comment: Speci men Type: ARTERIAL BLOOD SPECIMENOrdering Facility: [facility] Address: [address] [place] [address] Performed By: #### A LLBG ####[facility] LABIA [id number] [place] [address] [place] Lactate [Moles/Vol] 2.2 mmol/L Normal 0.5-2.2 [facility] Comment on above: Order Comment: Speci men Type: ARTERIAL BLOOD SPECIMENOrdering Facility: [facility] Address: [address] [place] [address] Performed By: #### A LLBG ####[facility] LABCLIA [id number] [place] [address] [place] Methemoglobin (Bld) [Mass fraction] 1.1 % Normal 0.0-1.5 [facility] Comment on above: Order Comment: Speci men Type: ARTERIAL BLOOD SPECIMENOrdering Facility: [facility] Address: [address] [place] [address] Performed By: #### A LLBG ####[facility] LABCLIA [id number] [address] [address] [place] Oxygen (Bld) [Partial pressure] 323 mm Hg High 85-95 [facility] Comment on above: Order Comment: Speci men Type: ARTERIAL BLOOD SPECIMENOrdering Facility: [facility] Address: [address] [place] [address] Performed By: #### A LLBG ####[facility] LABCLIA [id number] [place] [id number] [place] Oxygen adjusted to patient's actual temperature (Bld) [Partial pressure] 323 mmHg High 85-95 [facility] Comment on above: Order Comment: Speci men Type: ARTERIAL BLOOD SPECIMENOrdering Facility: [facility] Address: [address] [place] [address] Performed By: #### A LLBG ####[facility] LABCLIA [id number] [place] [address] [place] Oxyhemoglobin (BldA) [Mass fraction] 98 % Normal 95-98 [facility] Comment on above: Order Comment: Speci men Type: ARTERIAL BLOOD SPECIMENOrdering Facility: [facility] Address: [address] [place] [address] Performed By: #### A LLBG ####[facility] LABCLIA [id number] [place] [id number] [place] pH (Bld) 7.37 [pH] Normal 7.35-7.45 [facility] Comment on above: Order Comment: Speci men Type: ARTERIAL BLOOD SPECIMENOrdering Facility: [facility] Address: [address] [place] [address] Performed By: #### A LLBG ####[facility] LABCLIA [id number] [place] [id number] [place] pH adjusted to patient's actual temperature (Bld) 7.37 Normal 7.35-7.45 [facility] Comment on above: Order Comment: Speci men Type: ARTERIAL BLOOD SPECIMENOrdering Facility: [facility] Address: [address] [place] [address] Performed By: #### A LLBG ####[facility] LABCLIA [id number] [place] [address] [place] Potassium [Moles/Vol] 3.7 mmol/L Normal 3.5-5.0 [facility] Comment on above: Order Comment: Speci men Type: ARTERIAL BLOOD SPECIMENOrdering Facility: [facility] Address: [address] [place] [address] Performed By: #### A LLBG ####[facility] LABCLIA [id number] [place] [address] [place] Sodium [Moles/Vol] 132 mmol/L Low 136-144 [facility] Comment on above: Order Comment: Speci men Type: ARTERIAL BLOOD SPECIMENOrdering Facility: [facility] Address: [address] [place] [address] Performed By: #### A LLBG ####[facility] LABCLIA [id number] [place] [address] [place] Base deficit (BldA) [Moles/Vol] -5 mmol/L Low -2-0 [facility] Comment on above: Order Comment: Speci men Type: ARTERIAL BLOOD SPECIMENOrdering Facility: [facility] Address: [address] [place] [address] Performed By: #### A LLBG ####[facility] LABCLIA [id number] [place] [address] [place] Calcium.ionized (Bld) [Mass/Vol] 1.11 mmol/L Normal 1.08-1.30 [facility] Comment on above: Order Comment: Speci men Type: ARTERIAL BLOOD SPECIMENOrdering Facility: [facility] Address: [address] [place] [address] Performed By: #### A LLBG ####[facility] LABCLIA [id number] [place] [address] [place] Calcium.ionized adjusted to pH 7.4 (BldA) [Moles/Vol] 1.04 mmol/L Low 1.08-1.30 [facility] Comment on above: Order Comment: Speci men Type: ARTERIAL BLOOD SPECIMENOrdering Facility: [facility] Address: [address] [place] [address] Performed By: #### A LLBG ####[facility] LABCLIA [id number] [place] [address] [place] [place] Carboxyhemoglobin (BldA) [Mass fraction] 1.1 % Normal 0.0-2.0 [facility] Comment on above: Order Comment: Speci men Type: ARTERIAL BLOOD SPECIMENOrdering Facility: [facility] Address: [address] [place] [address] Result Comment: Carb oxyhemoglobin Reference Range for Smokers: 2.0-8.0% Performed By: #### A LLBG ####[facility] LABCLIA [id number] [place] [address] [place] CO2 (Bld) [Partial pressure] 48 mm Hg High 36-46 [facility] Comment on above: Order Comment: Speci men Type: ARTERIAL BLOOD SPECIMENOrdering Facility: [facility] Address: [address] [place] [address] Performed By: #### A LLBG ####[facility] LABCLIA [id number] [place] [address] [place] CO2 adjusted to patient's actual temperature (Bld) [Partial pressure] 48 mmHg High 36-46 [facility] Comment on above: Order Comment: Speci men Type: ARTERIAL BLOOD SPECIMENOrdering Facility: [facility] Address: [address] [place] [address] Performed By: #### A LLBG ####[facility] LABCLIA [id number] [place] [address] [place] Glucose [Mass/Vol] 217 mg/dL High 60-105 [facility] Comment on above: Order Comment: Speci men Type: ARTERIAL BLOOD SPECIMENOrdering Facility: [facility] Address: [address] [place] [address] Performed By: #### A LLBG ####[facility] LABCLIA [id number] [place] [address] [place] HCO3 (Bld) [Moles/Vol] 22 mmol/L Normal 22-26 [facility] Comment on above: Order Comment: Speci men Type: ARTERIAL BLOOD SPECIMENOrdering Facility: [facility] Address: [address] [place] [address] Performed By: #### A LLBG ####[facility] LABCLIA [id number] [place] [address] [place] Hematocrit (Bld) [Volume fraction] 30.5 % Low 36.0-46.0 [facility] Comment on above: Order Comment: Speci men Type: ARTERIAL BLOOD SPECIMENOrdering Facility: [facility] Address: [address] [place] [address] Performed By: #### A LLBG ####[facility] LABCLIA [id number] [place] [address] [place] Hemoglobin (Bld) [Mass/Vol] 9.9 g/dL Low 11.5-15.5 [facility] Comment on above: Order Comment: Speci men Type: ARTERIAL BLOOD SPECIMENOrdering Facility: [facility] Address: [address] [place] [address] Performed By: #### A LLBG ####[facility] LABCLIA [id number] [place] [address] [place] Lactate [Moles/Vol] 1.9 mmol/L Normal 0.5-2.2 [facility] Comment on above: Order Comment: Speci men Type: ARTERIAL BLOOD SPECIMENOrdering Facility: [facility] Address: [address] [place], [place] [address] Performed By: #### A LLBG ####[facility] LABCLIA [id number] [place] [address] [place] Order Comment: Speci men Type: VENOUS BLOOD SPECIMENOrdering Facility: [facility] Address: [address] [place], [place] [address] Performed By: #### 2 4344-4 ####[facility] LABCLIA [id number] [place] [address] [place] Methemoglobin (Bld) [Mass fraction] 1.8 % High 0.0-1.5 [facility] Comment on above: Order Comment: Speci men Type: ARTERIAL BLOOD SPECIMENOrdering Facility: [facility] Address: [address] [place] [address] Performed By: #### A LLBG ####[facility] LABCLIA [id number] [place] [address] [place] Oxygen (Bld) [Partial pressure] 378 mm Hg High 85-95 [facility] Comment on above: Order Comment: Speci men Type: ARTERIAL BLOOD SPECIMENOrdering Facility: [facility] Address: [address] [place], [place] [address] Performed By: #### A LLBG ####[facility] LABCLIA [id number] [place] [address] [place] Oxygen adjusted to patient's actual temperature (Bld) [Partial pressure] 378 mmHg High 85-95 [facility] Comment on above: Order Comment: Speci men Type: ARTERIAL BLOOD SPECIMENOrdering Facility: [facility] Address: [address] [place] [id number] Performed By: #### A LLBG ####[facility] LABCLIA [id number] [place] [id number] [place] Oxyhemoglobin (BldA) [Mass fraction] 97 % Normal 95-98 [facility] Comment on above: Order Comment: Speci men Type: ARTERIAL BLOOD SPECIMENOrdering Facility: [facility] Address: [address] [place] [address] Performed By: #### A LLBG ####[facility] LABCLIA [id number] [place] [address] [place] pH (Bld) 7.28 [pH] Low 7.35-7.45 [facility] Comment on above: Order Comment: Speci men Type: ARTERIAL BLOOD SPECIMENOrdering Facility: [facility] Address: [address] [place] [address] Performed By: #### A LLBG ####[facility] LABCLIA [id number] [place] [address] [place] pH adjusted to patient's actual temperature (Bld) 7.28 Low 7.35-7.45 [facility] Comment on above: Order Comment: Speci men Type: ARTERIAL BLOOD SPECIMENOrdering Facility: [facility] Address: [address] [place] [address] Performed By: #### A LLBG ####[facility] LABCLIA [id number] [place] [address] [place] Potassium [Moles/Vol] 3.8 mmol/L Normal 3.5-5.0 [facility] Comment on above: Order Comment: Speci men Type: ARTERIAL BLOOD SPECIMENOrdering Facility: [facility] Address: [address] [place] [address] Performed By: #### A LLBG ####[facility] LABCLIA [id number] [place] [address] [place] Order Comment: Speci men Type: VENOUS BLOOD SPECIMENOrdering Facility: [facility] Address: [address] [place] [address] Performed By: #### 2 4344-4 ####[facility] LABCLIA [id number] [place] [address] [id number] [address] [place] Sodium [Moles/Vol] 133 mmol/L Low 136-144 [facility] Comment on above: Order Comment: Speci men Type: ARTERIAL BLOOD SPECIMENOrdering Facility: [facility] Address: [address] [place] [address] Performed By: #### A LLBG ####[facility] LABCLIA [id number] [address] [place] Order Comment: Speci men Type: VENOUS BLOOD SPECIMENOrdering Facility: [facility] Address: [address] [place] [address] Performed By: #### 2 4344-4 ####[facility] LABIA [id number] [place] [address] [place] ARTERIAL BLOOD GASES WITH IO NIZED MAGNESIUMon 03-24-2024 Base excess Calc (Bld) [Moles/Vol] 0 mmol/L Normal 0-2 [facility] Comment on above: Order Comment: Speci men Type: ARTERIAL BLOOD SPECIMENOrdering Facility: [facility] Address: [address] [place] [address] Performed By: #### A LLMG ####[facility] LABIA [id number] [place] [address] [place] Calcium.ionized (Bld) [Mass/Vol] 1.32 mmol/L High 1.08-1.30 [facility] Comment on above: Order Comment: Speci men Type: ARTERIAL BLOOD SPECIMENOrdering Facility: [facility] Address: [address] [place] [address] Performed By: #### A LLMG ####[facility] LABIA [id number] [place] [address] [place] Calcium.ionized adjusted to pH 7.4 (BldA) [Moles/Vol] 1.32 mmol/L High 1.08-1.30 [facility] Comment on above: Order Comment: Speci men Type: ARTERIAL BLOOD SPECIMENOrdering Facility: [facility] Address: [address] [place] [address] Performed By: #### A LLMG ####[facility] LABCLIA [id number] [place] [address] [place] Carboxyhemoglobin (BldA) [Mass fraction] 1.3 % Normal 0.0-2.0 [facility] Comment on above: Order Comment: Speci men Type: ARTERIAL BLOOD SPECIMENOrdering Facility: [facility] Address: [address] [place] [address] Result Comment: Carb oxyhemoglobin Reference Range for Smokers: 2.0-8.0% Performed By: #### A LLMG ####[facility] LABCLIA [id number] [place] [address] [place] CO2 (Bld) [Partial pressure] 40 mm Hg Normal 36-46 [facility] Comment on above: Order Comment: Speci men Type: ARTERIAL BLOOD SPECIMENOrdering Facility: [facility] Address: [address] [place] [address] Performed By: #### A LLMG ####[facility] LABCLIA [id number] [place] [address] [place] CO2 adjusted to patient's actual temperature (Bld) [Partial pressure] 40 mmHg Normal 36-46 [facility] Comment on above: Order Comment: Speci men Type: ARTERIAL BLOOD SPECIMENOrdering Facility: [facility] Address: [address] [place] [address] Performed By: #### A LLMG ####[facility] LABCLIA [id number] [place] [address] [place] Glucose [Mass/Vol] 118 mg/dL High 60-105 [facility] Comment on above: Order Comment: Speci men Type: ARTERIAL BLOOD SPECIMENOrdering Facility: [facility] Address: [address] [place] [address] Performed By: #### A LLMG ####[facility] LABCLIA [id number] [place] [address] [place] HCO3 (Bld) [Moles/Vol] 24 mmol/L Normal 22-26 [facility] Comment on above: Order Comment: Speci men Type: ARTERIAL BLOOD SPECIMENOrdering Facility: [facility] Address: [address] [place] [address] Performed By: #### A LLMG ####[facility] LABCLIA [id number] [place] [address] [place] Hematocrit (Bld) [Volume fraction] 40.6 % Normal 36.0-46.0 [facility] Comment on above: Order Comment: Speci men Type: ARTERIAL BLOOD SPECIMENOrdering Facility: [facility] Address: [address] [place] [address] Performed By: #### A LLMG ####[facility] LABCLIA [id number] [place] [address] [place] Hemoglobin (Bld) [Mass/Vol] 13.2 g/dL Normal 11.5-15.5 [facility] Comment on above: Order Comment: Speci men Type: ARTERIAL BLOOD SPECIMENOrdering Facility: [facility] Address: [address] [place] [address] Performed By: #### A LLMG ####[facility] LABIA [id number] [place] [address] [place] Lactate [Moles/Vol] 1.0 mmol/L Normal 0.5-2.2 [facility] Comment on above: Order Comment: Speci men Type: ARTERIAL BLOOD SPECIMENOrdering Facility: [facility] Address: [address] [place] [address] Performed By: #### A LLMG ####[facility] LABCLIA [id number] [place] [address] [place] Magnesium [Moles/Vol] 0.53 mmol/L Normal 0.45-0.60 [facility] Comment on above: Order Comment: Speci men Type: ARTERIAL BLOOD SPECIMENOrdering Facility: [facility] Address: [address] [place] [address] Performed By: #### A LLMG ####[facility] LABCLIA [id number] [address] [address] [place] Methemoglobin (Bld) [Mass fraction] 0.7 % Normal 0.0-1.5 [facility] Comment on above: Order Comment: Speci men Type: ARTERIAL BLOOD SPECIMENOrdering Facility: [facility] Address: [address] [place] [id number] Performed By: #### A LLMG ####[facility] LABCLIA [id number] [place] [address] [place] Oxygen (Bld) [Partial pressure] 106 mm Hg High 85-95 [facility] Comment on above: Order Comment: Speci men Type: ARTERIAL BLOOD SPECIMENOrdering Facility: [facility] Address: [address] [place] [phone] Performed By: #### A LLMG ####[facility] LABCLIA [id number] [place] [address] [place] Oxygen adjusted to patient's actual temperature (Bld) [Partial pressure] 106 mmHg High 85-95 [facility] Comment on above: Order Comment: Speci men Type: ARTERIAL BLOOD SPECIMENOrdering Facility: [facility] Address: [address] [place] [phone] Performed By: #### A LLMG ####[facility] LABCLIA [id number] [address] [address] [place] Oxyhemoglobin (BldA) [Mass fraction] 97 % Normal 95-98 [facility] Comment on above: Order Comment: Speci men Type: ARTERIAL BLOOD SPECIMENOrdering Facility: [facility] Address: [address] [place] [phone] Performed By: #### A LLMG ####[facility] LABCLIA [id number] [place] [address] [place] pH (Bld) 7.40 [pH] Normal 7.35-7.45 [facility] Comment on above: Order Comment: Speci men Type: ARTERIAL BLOOD SPECIMENOrdering Facility: [facility] Address: [address] [place] [address] Performed By: #### A LLMG ####[facility] LABIA [id number] [place] [address] [place] pH adjusted to patient's actual temperature (Bld) 7.40 Normal 7.35-7.45 [facility] Comment on above: Order Comment: Speci men Type: ARTERIAL BLOOD SPECIMENOrdering Facility: [facility] Address: [address] [place] [address] Performed By: #### A LLMG ####[facility] [id number] [place] [address] [place] Potassium [Moles/Vol] 3.9 mmol/L Normal 3.5-5.0 [facility] Comment on above: Order Comment: Speci men Type: ARTERIAL BLOOD SPECIMENOrdering Facility: [facility] Address: [address] [place] [address] Performed By: #### A LLMG ####[facility] [id number] [place] [address] [place] Sodium [Moles/Vol] 140 mmol/L Normal 136-144 [facility] Comment on above: Order Comment: Speci men Type: ARTERIAL BLOOD SPECIMENOrdering Facility: [facility] Address: [address] [place] [address] Performed By: #### A LLMG ####[facility] LABIA [id number] [place] [address] [place] ECG COMPLETEon 03-24-2024 ECG COMPLETE Normal [facility] Fibrinogen PPP-mCncon 2023 Fibrinogen Coag (PPP) [Mass/Vol] 202 mg/dL Normal 200-400 [facility] Comment on above: Order Comment: Speci men Type: BLOOD SPECIMENOrdering Facility: [facility] Address: [address] [place] [address] Performed By: #### 3 255-7 ####[facility] LABIA [id number] [place] [address] [place] Gas and Carbon monoxide pane l (BldV)on 03-24-2024 BASE DEFICIT, VENOUS -4 mmol/L Low -2-0 [facility] Comment on above: Order Comment: Speci men Type: VENOUS BLOOD SPECIMENOrdering Facility: [facility] Address: [address] [place] [address] Performed By: #### 2 4344-4 ####[facility] LABIA [id number] [place] [address] [place] Calcium.ionized (Bld) [Mass/Vol] 1.12 mmol/L Normal 1.08-1.30 [facility] Comment on above: Order Comment: Speci men Type: VENOUS BLOOD SPECIMENOrdering Facility: [facility] Address: [address] [place] [address] Performed By: #### 2 4344-4 ####[facility] [id number] [place] [address] [place] Calcium.ionized adjusted to pH 7.4 (BldA) [Moles/Vol] 1.02 mmol/L Low 1.08-1.30 [facility] Comment on above: Order Comment: Speci men Type: VENOUS BLOOD SPECIMENOrdering Facility: [facility] Address: [address] [place] [address] Performed By: #### 2 4344-4 ####[facility] LABIA [id number] [place] [address] [place] Carboxyhemoglobin (BldV) [Mass fraction] 0.4 % Normal 0.0-2.0 [facility] Comment on above: Order Comment: Speci men Type: VENOUS BLOOD SPECIMENOrdering Facility: [facility] Address: [address] [place] [address] Result Comment: Carb oxyhemoglobin Reference Range for Smokers: 2.0-8.0% Performed By: #### 2 4344-4 ####[facility] LABCLIA [id number] [place] [address] [place] CO2 (BldV) [Partial pressure] 57 mm[Hg] High 42-55 [facility] Comment on above: Order Comment: Speci men Type: VENOUS BLOOD SPECIMENOrdering Facility: [facility] Address: [address] [place] [address] Performed By: #### 2 4344-4 ####[facility] LABCLIA [id number] [place] [address] [place] CO2 adjusted to patient's actual temperature (BldV) [Partial pressure] 57 mmHg High 42-55 [facility] Comment on above: Order Comment: Speci men Type: VENOUS BLOOD SPECIMENOrdering Facility: [facility] Address: [address] [place] [address] Performed By: #### 2 4344-4 ####[facility] LABCLIA [id number] [place] [address] [place] Glucose [Mass/Vol] 218 mg/dL High 60-105 [facility] Comment on above: Order Comment: Speci men Type: VENOUS BLOOD SPECIMENOrdering Facility: [facility] Address: [address] [place] [address] Performed By: #### 2 4344-4 ####[facility] LABCLIA [id number] [place] [address] [place] HCO3 (Bld) [Moles/Vol] 23 mmol/L Low 24-28 [facility] Comment on above: Order Comment: Speci men Type: VENOUS BLOOD SPECIMENOrdering Facility: [facility] Address: [address] [place] [address] Performed By: #### 2 4344-4 ####[facility] LABCLIA [id number] [place] [address] [place] Hematocrit (Bld) [Volume fraction] 31.1 % Low 36.0-46.0 [facility] Comment on above: Order Comment: Speci men Type: VENOUS BLOOD SPECIMENOrdering Facility: [facility] Address: [address] [place] [address] Performed By: #### 2 4344-4 ####[facility] LABIA [id number] [place] [address] [place] Hemoglobin (Bld) [Mass/Vol] 10.1 g/dL Low 11.5-15.5 [facility] Comment on above: Order Comment: Speci men Type: VENOUS BLOOD SPECIMENOrdering Facility: [facility] Address: [address] [place] [address] Performed By: #### 2 4344-4 ####[facility] LABIA [id number] [place] [address] [place] Methemoglobin (Bld) [Mass fraction] 1.2 % Normal 0.0-1.5 [facility] Comment on above: Order Comment: Speci men Type: VENOUS BLOOD SPECIMENOrdering Facility: [facility] Address: [address] [place] [address] Performed By: #### 2 4344-4 ####[facility] LABIA [id number] [place] [address] [place] Oxygen (BldV) [Partial pressure] 110 mm[Hg] High 35-45 [facility] Comment on above: Order Comment: Speci men Type: VENOUS BLOOD SPECIMENOrdering Facility: [facility] Address: [address] [place] [address] Performed By: #### 2 4344-4 ####[facility] LABCLIA [id number] [place] [id number] [place] Oxygen adjusted to patient's actual temperature (BldV) [Partial pressure] 110 mmHg High 35-45 [facility] Comment on above: Order Comment: Speci men Type: VENOUS BLOOD SPECIMENOrdering Facility: [facility] Address: [address] [place], [place] [phone] Performed By: #### 2 4344-4 ####[facility] LABCLIA [id number] [place] [id number] [place] Oxygen saturation in Venous blood 97 % High 60-85 [facility] Comment on above: Order Comment: Speci men Type: VENOUS BLOOD SPECIMENOrdering Facility: [facility] Address: [address] [place], [place] [id number] Performed By: #### 2 4344-4 ####[facility] LABCLIA [id number] [place] [address] [place] Oxyhemoglobin (BldV) [Mass fraction] 95 % High 60-85 [facility] Comment on above: Order Comment: Speci men Type: VENOUS BLOOD SPECIMENOrdering Facility: [facility] Address: [address] [place], [place] [address] Performed By: #### 2 4344-4 ####[facility] LABCLIA [id number] [place] [id number] [place] pH (BldV) 7.23 [pH] Low 7.32-7.42 [facility] Comment on above: Order Comment: Speci men Type: VENOUS BLOOD SPECIMENOrdering Facility: [facility] Address: [address] [place] [address] Performed By: #### 2 4344-4 ####[facility] LABCLIA [id number] [place] [id number] [place] pH adjusted to patient's actual temperature (BldV) 7.23 Low 7.32-7.42 [facility] Comment on above: Order Comment: Speci men Type: VENOUS BLOOD SPECIMENOrdering Facility: [facility] Address: [address] [place] [address] Performed By: #### 2 4344-4 ####[facility] LABCLIA [id number] [place] [id number] [place] INTRAOPERATIVE ECHO PREon INTRAOPERATIVE ECHO PRE Normal [facility] OPERATIVE NOon 03-24-2024 OPERATIVE NO Normal [facility] Platelets Auto (Bld) [#/Vol] on 03-24-2024 Platelets (Bld) [#/Vol] 106 10*3/uL Low 150-400 [facility] Comment on above: Order Comment: Speci men Type: BLOOD SPECIMENOrdering Facility: [facility] Address: [address] [place] [address] Result Comment: Resu lts checked and verified.No clot detected. Performed By: #### 7 77-3 ####[facility] LABCLIA [id number] [place] [address] [place] SURGICAL PATHOLOGYon 024 CASE REPORT Normal [facility] Comment on above: Order Comment: Speci men Type: TISSUE SPECIMENOrdering Facility: [facility] Address: [address] [place] [address] Result Comment: Surg [facility] Pathology Report Case: [id number] Provider: Esme Arango MD Collected: 03/24/2024 11:00 AMOrdering Location: Admitting Received: 03/24/2024 02:59 PMPathologist: Nelsy Mahmood MDSpecimen: Heart, Mitral Valve Performed By: #### S ####[facility] LABCLIA [id number] [place] [address] [place] CLINICAL HISTORY Normal [facility] Comment on above: Order Comment: Speci men Type: TISSUE SPECIMENOrdering Facility: [facility] Address: [address] [place] [address] Result Comment: Pre- op diagnosis:Pre-operative cardiovascular examination [Z01.810]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] Performed By: #### S ####[facility] LABCLIA [id number] [place] [address] [place] DIAGNOSIS COMMENT Normal [facility] Comment on above: Order Comment: Speci men Type: TISSUE SPECIMENOrdering Facility: [facility] Address: [address] [place] [address] Performed By: #### S ####[facility] LABCLIA [id number] [place] [address] [place] FINAL DIAGNOSIS Normal [facility] Comment on above: Order Comment: Speci men Type: TISSUE SPECIMENOrdering Facility: [facility] Address: [address] [place] [address] Result Comment: A. M itral valve, partial excision:-Myxoid degeneration. See comment. Performed By: #### S ####[facility] LABCLIA [id number] [address] [place] FINAL PERFORMING LAB Normal [facility] Comment on above: Order Comment: Speci men Type: TISSUE SPECIMENOrdering Facility: [facility] Address: [address] [place] [address] Result Comment: Diag nostic interpretation performed at [facility], [address] [place] [address] CLIA# [id number] Director: Urbano Posadas M.D. Performed By: #### S ####[facility] LABCLIA [id number] [place] [address] [place] GROSS DESCRIPTION Normal [facility] Comment on above: Order Comment: Speci men Type: TISSUE SPECIMENOrdering Facility: [facility] Address: [address] [place] [address] Result Comment: Félix H eart, Mitral ValveReceived in formalin designated heart, mitral valve is a segment of atrioventricular valve which measures 1 cm along the free edge and 1.4 cm from the free edge to the base. On cut section it has a thickened gelatinous consistency. No calcification is identified. No vegetations or perforations are present. The chordae are unremarkable. Totally submitted in 1 cassette.Gross examination performed at [facility], [address] [place] [address] March 25, 2024 8:54 AM Performed By: #### S ####[facility] LABIA [id number] [place] [address] [place] THROMBOGRAPH HEPARINASE PANE [place] 03-24-2024 Clot angle after addition of heparinase TEG (Bld) [Angle] 81.4 degrees High 47.0-74.0 [facility] Comment on above: Order Comment: Speci men Type: BLOOD SPECIMENOrdering Facility: [facility] Address: [address] [place] [address] Performed By: #### T EGHPP ####[facility] [id number] [place] [address] [place] Clot Lysis 30 Min post maximum clot amplitude TEG (Bld) [Length fraction] 5.9 % Normal 0.0-8.0 [facility] Comment on above: Order Comment: Speci men Type: BLOOD SPECIMENOrdering Facility: [facility] Address: [address] [place] [address] Performed By: #### T EGHPP ####[facility] OHIOIA [id number] [place] [address] [place] Clotting time after addition of heparinase TEG (Bld) 3.4 minutes Low 4.0-10.0 [facility] Comment on above: Order Comment: Speci men Type: BLOOD SPECIMENOrdering Facility: [facility] Address: [address] [place] [address] Performed By: #### T EGHPP ####[facility] [id number] [place] [address] [place] Coagulation index TEG Qn (Bld) 2.7 Normal -4.6-3.2 [facility] Comment on above: Order Comment: Trina trujillo Type: BLOOD SPECIMENOrdering Facility: [facility] Address: [address] [place] [address] Result Comment: This test was developed, and its performance characteristics determined by the [facility] Department of Pathology and Laboratory Medicine. It has not been cleared or approved by the FDA. The [facility] Department of Pathology and Laboratory Medicine is regulated under CLIA as qualified to perform high-complexity testing. This test is used for clinical purposes. It should not be regarded as investigational or for research. Performed By: #### T EGHPP ####[facility] LABCLIA [id number] [place] [address] [place] Maximum clot firmness after addition of heparinase TEG (Bld) [Length] 56.0 mm Normal 51.0-75.0 [facility] Comment on above: Order Comment: Trina trujillo Type: BLOOD SPECIMENOrdering Facility: [facility] Address: [address] [place] [address] Performed By: #### T EGHPP ####[facility] LABCLIA [id number] [place] [address] [place] Thromboelastography after addtion of heparinase panel (Bld) Normal [facility] Comment on above: Order Comment: Trina trujillo Type: BLOOD SPECIMENOrdering Facility: [facility] Address: [address] [place] [address] Result Comment: A th romboelastograph (TEG) study [...] timely manner. Performed By: #### T EGHPP ####[facility] LABCLIA [id number] [place] [address] [place] XR CHEST 1V FRONTAL PORTon 1 05-25-2023 XR CHEST 1V FRONTAL PORT Normal [facility] CNPTOUTREACHon 03-20-2024 CNPTOUTREACH Normal [facility] CNCNPATEDon 03-04-2024 CNCNPATED Normal [facility] CNOVon 03-04-2024 CNOV Normal [facility] STAPHYLOCOCCUS AUREUS AND MR SA SCREEN, PCR, NASALon 03-04-2024 S. aureus and MRSA panel JIN+probe (Nose) Not detected Normal Not Detected [facility] Comment on above: Order Comment: Speci men Type: SWABOrdering Facility: [facility] Address: [address] [place] [address] Performed By: #### S APCR ####[facility] OHIOIA [id number] [place] [address] [place] CBC W Auto Differential pane l (Bld)on 03-03-2024 Basophils (Bld) [#/Vol] 0.05 10*3/uL Normal <0.11 [facility] Comment on above: Order Comment: Speci men Type: BLOOD SPECIMENOrdering Facility: [facility] Address: [address] [place] [address] Performed By: #### 5 7021-8 ####[facility] LABIA [id number] [place] [address] [place] Basophils/100 WBC (Bld) 0.5 % Normal [facility] Comment on above: Order Comment: Speci men Type: BLOOD SPECIMENOrdering Facility: [facility] Address: [address] [place] [address] Performed By: #### 5 7021-8 ####[facility] LABCLIA [id number] [place] [address] [place] Differential cell count method Nom (Bld) Auto Normal [facility] Comment on above: Order Comment: Speci men Type: BLOOD SPECIMENOrdering Facility: [facility] Address: [address] [place] [address] Performed By: #### 5 7021-8 ####[facility] LABCLIA [id number] [place] [address] [place] Eosinophils (Bld) [#/Vol] 0.11 10*3/uL Normal <0.46 [facility] Comment on above: Order Comment: Speci men Type: BLOOD SPECIMENOrdering Facility: [facility] Address: [address] [place] [address] Performed By: #### 5 7021-8 ####[facility] LABIA [id number] [place] [address] [place] Eosinophils/100 WBC (Bld) 1.2 % Normal [facility] Comment on above: Order Comment: Speci men Type: BLOOD SPECIMENOrdering Facility: [facility] Address: [address] [place] [address] Performed By: #### 5 7021-8 ####[facility] LABIA [id number] [place] [address] [place] Erythrocyte distribution width (RBC) [Ratio] 13.4 % Normal 11.5-15.0 [facility] Comment on above: Order Comment: Speci men Type: BLOOD SPECIMENOrdering Facility: [facility] Address: [address] [place] [address] Performed By: #### 5 7021-8 ####[facility] LABCLIA [id number] [place] [address] [place] Hematocrit (Bld) [Volume fraction] 42.0 % Normal 36.0-46.0 [facility] Comment on above: Order Comment: Speci men Type: BLOOD SPECIMENOrdering Facility: [facility] Address: [address] [place] [address] Performed By: #### 5 7021-8 ####[facility] LABCLIA [id number] [place] [address] [place] Hemoglobin (Bld) [Mass/Vol] 13.5 g/dL Normal 11.5-15.5 [facility] Comment on above: Order Comment: Speci men Type: BLOOD SPECIMENOrdering Facility: [facility] Address: [address] [place] [address] Performed By: #### 5 7021-8 ####[facility] LABIA [id number] [place] [address] [place] Immature granulocytes (Bld) [#/Vol] 0.03 10*3/uL Normal <0.10 [facility] Comment on above: Order Comment: Speci men Type: BLOOD SPECIMENOrdering Facility: [facility] Address: [address] [place] [address] Performed By: #### 5 7021-8 ####[facility] LABCLIA [id number] [place] [address] [place] Immature granulocytes/100 WBC (Bld) 0.3 % Normal [facility] Comment on above: Order Comment: Speci men Type: BLOOD SPECIMENOrdering Facility: [facility] Address: [address] [place] [address] Performed By: #### 5 7021-8 ####[facility] LABCLIA [id number] [place] [address] [place] Lymphocytes (Bld) [#/Vol] 1.60 10*3/uL Normal 1.00-4.00 [facility] Comment on above: Order Comment: Speci men Type: BLOOD SPECIMENOrdering Facility: [facility] Address: [address] [place] [address] Performed By: #### 5 7021-8 ####[facility] LABIA [id number] [place] [address] [place] Lymphocytes/100 WBC (Bld) 16.9 % Normal [facility] Comment on above: Order Comment: Speci men Type: BLOOD SPECIMENOrdering Facility: [facility] Address: [address] [place] [address] Performed By: #### 5 7021-8 ####[facility] LABIA [id number] [place] [address] [place] MCH (RBC) [Entitic mass] 29.9 pg Normal 26.0-34.0 [facility] Comment on above: Order Comment: Speci men Type: BLOOD SPECIMENOrdering Facility: [facility] Address: [address] [place] [address] Performed By: #### 5 7021-8 ####[facility] LABIA [id number] [place] [address] [place] MCHC (RBC) [Mass/Vol] 32.1 g/dL Normal 30.5-36.0 [facility] Comment on above: Order Comment: Speci men Type: BLOOD SPECIMENOrdering Facility: [facility] Address: [address] [place] [address] Performed By: #### 5 7021-8 ####[facility] LABIA [id number] [place] [address] [place] MCV (RBC) [Entitic vol] 92.9 fL Normal 80.0-100.0 [facility] Comment on above: Order Comment: Speci men Type: BLOOD SPECIMENOrdering Facility: [facility] Address: [address] [place] [address] Performed By: #### 5 7021-8 ####[facility] LABCLIA [id number] [place] [address] [place] Monocytes (Bld) [#/Vol] 0.60 10*3/uL Normal <0.87 [facility] Comment on above: Order Comment: Speci men Type: BLOOD SPECIMENOrdering Facility: [facility] Address: [address] [place] [address] Performed By: #### 5 7021-8 ####[facility] LABCLIA [id number] [place] [address] [place] Monocytes/100 WBC (Bld) 6.3 % Normal [facility] Comment on above: Order Comment: Speci men Type: BLOOD SPECIMENOrdering Facility: [facility] Address: [address] [place] [address] Performed By: #### 5 7021-8 ####[facility] LABCLIA [id number] [place] [address] [place] Neutrophils (Bld) [#/Vol] 7.07 10*3/uL Normal 1.45-7.50 [facility] Comment on above: Order Comment: Speci men Type: BLOOD SPECIMENOrdering Facility: [facility] Address: [address] [place] [address] Performed By: #### 5 7021-8 ####[facility] LABCLIA [id number] [place] [address] [place] Neutrophils/100 WBC (Bld) 74.8 % Normal [facility] Comment on above: Order Comment: Speci men Type: BLOOD SPECIMENOrdering Facility: [facility] Address: [address] [place] [address] Performed By: #### 5 7021-8 ####[facility] LABCLIA [id number] [place] [address] [place] Nucleated RBC (Bld) [#/Vol] 10*3/uL Normal <0.01 [facility] Comment on above: Order Comment: Speci men Type: BLOOD SPECIMENOrdering Facility: [facility] Address: [address] [place] [address] Performed By: #### 5 7021-8 ####[facility] LABCLIA [id number] [place] [address] [place] Nucleated RBC/100 WBC (Bld) [Ratio] 0.0 /100 WBC Normal [facility] Comment on above: Order Comment: Speci men Type: BLOOD SPECIMENOrdering Facility: [facility] Address: [address] [place] [address] Performed By: #### 5 7021-8 ####[facility] LABIA [id number] [place] [address] [place] Platelet mean volume (Bld) [Entitic vol] 12.4 fL Normal 9.0-12.7 [facility] Comment on above: Order Comment: Speci men Type: BLOOD SPECIMENOrdering Facility: [facility] Address: [address] [place] [address] Performed By: #### 5 7021-8 ####[facility] LABIA [id number] [place] [address] [place] Platelets (Bld) [#/Vol] 230 10*3/uL Normal 150-400 [facility] Comment on above: Order Comment: Speci men Type: BLOOD SPECIMENOrdering Facility: [facility] Address: [address] [place] [address] Performed By: #### 5 7021-8 ####[facility] LABIA [id number] [place] [address] [place] RBC (Bld) [#/Vol] 4.52 10*6/uL Normal 3.90-5.20 [facility] Comment on above: Order Comment: Speci men Type: BLOOD SPECIMENOrdering Facility: [facility] Address: [address] [place] [address] Performed By: #### 5 7021-8 ####[facility] LABCLIA [id number] [place] [address] [place] WBC (Bld) [#/Vol] 9.46 10*3/uL Normal 3.70-11.00 [facility] Comment on above: Order Comment: Speci men Type: BLOOD SPECIMENOrdering Facility: [facility] Address: [address] [place] [address] Performed By: #### 5 7021-8 ####[facility] LABIA [id number] [place] [address] [place] CNOVon 03-03-2024 CNOV Normal [facility] CNOV Normal [facility] CONFIRM BLOOD TYPEon 024 ABO A Normal [facility] Comment on above: Order Comment: Speci men Type: BLOOD SPECIMENOrdering Facility: [facility] Address: [address] [place] [address] Performed By: #### C ONABO ####[facility] BLOOD BANKIA [id number] [place] [address] [place] Rh Nom (Bld) Negative Normal [facility] Comment on above: Order Comment: Speci men Type: BLOOD SPECIMENOrdering Facility: [facility] Address: [address] [place] [address] Performed By: #### C ONABO ####[facility] BLOOD BANKIA [id number] [place] [address] [place] Comprehensive metabolic 2000 panelon 03-03-2024 Albumin [Mass/Vol] 4.4 g/dL Normal 3.9-4.9 [facility] Comment on above: Order Comment: Speci men Type: BLOOD SPECIMENOrdering Facility: [facility] Address: [address] [place] [address] Performed By: #### 2 4328, 2531-0 ####[facility] LABCLIA [id number] [facility] [place] [id number] [place] ALP [Catalytic activity/Vol] 67 U/L Normal 34-123 [facility] Comment on above: Order Comment: Speci men Type: BLOOD SPECIMENOrdering Facility: [facility] Address: [address] [place] [address] Performed By: #### 2 4328, 2531-0 ####[facility] LABCLIA [id number] [facility] [place] [address] [place] ALT [Catalytic activity/Vol] 10 U/L Normal 7-38 [facility] Comment on above: Order Comment: Speci men Type: BLOOD SPECIMENOrdering Facility: [facility] Address: [address] [place] [address] Performed By: #### 2 4322-11, 0 ####[facility] LABCLIA [id number] [place] [address] [place] Anion gap [Moles/Vol] 11 mmol/L Normal 8-15 [facility] Comment on above: Order Comment: Speci men Type: BLOOD SPECIMENOrdering Facility: [facility] Address: [address] [place] [address] Performed By: #### 2 4328, 2531-0 ####[facility] LABCLIA [id number] [place] [address] [place] AST [Catalytic activity/Vol] 15 U/L Normal 13-35 [facility] Comment on above: Order Comment: Speci men Type: BLOOD SPECIMENOrdering Facility: [facility] Address: [address] [place], [place] [address] Performed By: #### 2 432-8, 2531-0 ####[facility] LABCLIA [id number] [place] [id number] [place] Bilirubin [Mass/Vol] 0.5 mg/dL Normal 0.2-1.3 [facility] Comment on above: Order Comment: Speci men Type: BLOOD SPECIMENOrdering Facility: [facility] Address: [address] [place] [address] Performed By: #### 2 4323-8, 2531-0 ####[facility] LABCLIA [id number] [place] [address] [place] Calcium [Mass/Vol] 9.9 mg/dL Normal 8.5-10.2 [facility] Comment on above: Order Comment: Speci men Type: BLOOD SPECIMENOrdering Facility: [facility] Address: [address] [place] [address] Performed By: #### 2 4323-8, 0 ####[facility] LABCLIA [id number] [place] [address] [place] Chloride [Moles/Vol] 105 mmol/L Normal 98-107 [facility] Comment on above: Order Comment: Speci men Type: BLOOD SPECIMENOrdering Facility: [facility] Address: [address] [place] [address] Performed By: #### 2 4323-8, 0 ####[facility] LABCLIA [id number] [place] [address] [place] CO2 [Moles/Vol] 26 mmol/L Normal 22-30 [facility] Comment on above: Order Comment: Speci men Type: BLOOD SPECIMENOrdering Facility: [facility] Address: [address] [place] [address] Performed By: #### 2 4323-8, 2531-0 ####[facility] LABCLIA [id number] [place] [address] [place] Creatinine [Mass/Vol] 0.96 mg/dL Normal 0.58-0.96 [facility] Comment on above: Order Comment: Speci men Type: BLOOD SPECIMENOrdering Facility: [facility] Address: [address] [place] [address] Performed By: #### 2 4323-8, 2531-0 ####[facility] LABIA [id number] [place] [address] [place] Creatinine and Glomerular filtration rate.predicted panel (S/P/Bld) 60 mL/min/1.73m??? Normal >=60 [facility] Comment on above: Order Comment: Trina trujillo Type: BLOOD SPECIMENOrdering Facility: [facility] Address: [address] [place] [address] Result Comment: Lexus mated Glomerular Filtration Rate [...] actual GFR. Performed By: #### 2 4323-8, 2531-0 ####[facility] LABIA [id number] [place] [address] [place] Glucose [Mass/Vol] 91 mg/dL Normal 74-99 [facility] Comment on above: Order Comment: Trina trujillo Type: BLOOD SPECIMENOrdering Facility: [facility] Address: [address] [place] [address] Result Comment: The [place] [employer] (ADA) provides guidance for cutoff [...] Standards of Medical Care in Diabetes 2016, [place] [employer]. Diabetes Care. 2016.39(Suppl 1). Performed By: #### 2 432-8, 0 ####[facility] LABCLIA [id number] [address] [address] [place] Potassium [Moles/Vol] 4.8 mmol/L Normal 3.7-5.1 [facility] Comment on above: Order Comment: Speci men Type: BLOOD SPECIMENOrdering Facility: [facility] Address: [address] [place] [address] Performed By: #### 2 4328, 0 ####[facility] LABCLIA [id number] [place] [address] [place] Protein [Mass/Vol] 6.7 g/dL Normal 6.3-8.0 [facility] Comment on above: Order Comment: Speci men Type: BLOOD SPECIMENOrdering Facility: [facility] Address: [address] [place] [address] Performed By: #### 2 4328, 0 ####[facility] LABCLIA [id number] [place] [address] [place] Sodium [Moles/Vol] 142 mmol/L Normal 136-144 [facility] Comment on above: Order Comment: Speci men Type: BLOOD SPECIMENOrdering Facility: [facility] Address: [address] [place] [address] Performed By: #### 2 4328, 0 ####[facility] LABCLIA [id number] [address] [address] [place] Urea nitrogen [Mass/Vol] 20 mg/dL Normal 7-21 [facility] Comment on above: Order Comment: Speci men Type: BLOOD SPECIMENOrdering Facility: [facility] Address: [address] [place], [place] [address] Performed By: #### 2 4323-8, 2531-0 ####[facility] LABCLIA [id number] [place] [id number] [place] ECG COMPLETEon 03-03-2024 ECG COMPLETE Normal [facility] LDH SerPl-cCncon 03-03-2024 LDH [Catalytic activity/Vol] 206 U/L Normal 135-214 [facility] Comment on above: Order Comment: Speci men Type: BLOOD SPECIMENOrdering Facility: [facility] Address: [address] [place] [address] Performed By: #### 2 4323-8, 2532-0 ####[facility] LABCLIA [id number] [place] [address] [place] PT panel Coag (PPP)on 2023 INR Coag (PPP) [Relative time] 1.0 {INR} Normal 0.9-1.3 [facility] Comment on above: Order Comment: Speci men Type: BLOOD SPECIMENOrdering Facility: [facility] Address: [address] [place] [address] Result Comment: Sonia min K Antagonist (VKA) Therapeutic Range: INR 2 to 3 (Target INR of 2.5)Note: For patients treated with VKA drugs, such as warfarin, the [place] [employer] 2012 Guideline recommends [...] 2.5 to 3.5 (target INR of 3).Evert GH, et al. Chest 2012, 141:7S-47SNishimura RA, et al. JAC 2017, 70: 252-289 Performed By: #### 3 4528-0, 11959-2 ####[facility] LABCLIA [id number] [address] [id number] [address] [place] PT Coag (PPP) [Time] 10.5 s Normal 9.7-13.0 [facility] [facility] Comment on above: Order Comment: Speci men Type: BLOOD SPECIMENOrdering Facility: [facility] Address: [address] [place] [address] Performed By: #### 3 4528-0, 84311-1 ####[facility] LABCLIA [id number] [place] [address] [place] TYPE AND SCREEN,30 DAYon ABO A Normal [facility] Comment on above: Order Comment: Speci men Type: BLOOD SPECIMENOrdering Facility: [facility] Address: [address] [place] [address] Performed By: #### T SCR30 ####[facility] BLOOD BANKIA [id number] [place] [address] [place] Rh Nom (Bld) Negative Normal [facility] Comment on above: Order Comment: Speci men Type: BLOOD SPECIMENOrdering Facility: [facility] Address: [address] [place] [address] Performed By: #### T SCR30 ####CC [facility] BLOOD BANKIA [id number] [place] [address] [place] URINALYSIS, DIPSTICK ONLYon 03-03-2024 Bilirubin Ql (U) Negative Normal Negative [facility] Comment on above: Order Comment: Speci men Type: URINE SPECIMENOrdering Facility: [facility] Address: [address] [place] [address] Performed By: #### U A ####[facility] LABCLIA [id number] [place] [address] [place] Clarity (Unsp spec) Clear Normal Clear [facility] Comment on above: Order Comment: Speci men Type: URINE SPECIMENOrdering Facility: [facility] Address: [address] [place] [address] Performed By: #### U A ####[facility] LABCLIA [id number] [place] [address] [place] Color (U) Yellow Normal Yellow [facility] Comment on above: Order Comment: Speci men Type: URINE SPECIMENOrdering Facility: [facility] Address: [address] [place] [address] Performed By: #### U A ####[facility] LABCLIA [id number] [place] [address] [place] Glucose Test strip (U) [Mass/Vol] Negative Normal Negative [facility] Comment on above: Order Comment: Speci men Type: URINE SPECIMENOrdering Facility: [facility] Address: [address] [place] [address] Performed By: #### U A ####[facility] LABCLIA [id number] [place] [address] [place] Hemoglobin Ql (U) Negative Normal Negative [facility] Comment on above: Order Comment: Speci men Type: URINE SPECIMENOrdering Facility: [facility] Address: [address] [place] [address] Performed By: #### U A ####[facility] LABCLIA [id number] [address] [place] Ketones Ql (U) Negative Normal Negative [facility] Comment on above: Order Comment: Speci men Type: URINE SPECIMENOrdering Facility: [facility] Address: [address] [place] [address] Performed By: #### U A ####[facility] LABCLIA [id number] [address] [place] Leukocyte esterase Test strip Ql (U) 2+ Abnormal Negative [facility] Comment on above: Order Comment: Speci men Type: URINE SPECIMENOrdering Facility: [facility] Address: [address] [place] [address] Performed By: #### U A ####[facility] LABCLIA [id number] [place] [address] [place] Nitrite Ql (U) Negative Normal Negative [facility] Comment on above: Order Comment: Speci men Type: URINE SPECIMENOrdering Facility: [facility] Address: [address] [place] [address] Performed By: #### U A ####[facility] LABIA [id number] [place] [address] [place] pH (U) 5.5 [pH] Normal <8.5 [facility] Comment on above: Order Comment: Speci men Type: URINE SPECIMENOrdering Facility: [facility] Address: [address] [place] [address] Performed By: #### U A ####[facility] LABIA [id number] [place] [address] [place] Protein (U) [Mass/Vol] Negative Normal Negative [facility] Comment on above: Order Comment: Speci men Type: URINE SPECIMENOrdering Facility: [facility] Address: [address] [place] [address] Performed By: #### U A ####[facility] LABIA [id number] [place] [address] [place] Specific gravity (U) [Rel density] 1.020 Normal 1.005-1.03 0 [facility] Comment on above: Order Comment: Speci men Type: URINE SPECIMENOrdering Facility: [facility] Address: [address] [place] [address] Performed By: #### U A ####[facility] LABIA [id number] [place] [address] [place] Urobilinogen Ql (U) 0.2 EU/dL Normal 0.2-1.0 EU/dL [facility] Comment on above: Order Comment: Speci men Type: URINE SPECIMENOrdering Facility: [facility] Address: [address] [place], [place] [address] [address] Performed By: #### U A ####[facility] LABCLIA [id number] [facility]FF[id number] [id number] [place] XR CHEST 2V FRONTAL/LATon XR CHEST 2V FRONTAL/LAT Normal [facility] XR Chest PA and Lateralon IMPRESSION: No acute radiographic abnormality. Science Interpreter: ALEX Transcribe Date/Time: Mar 03 2024 10:46A Dictated by : GAUDENCIO DELGADO, This examination was interpreted and the report reviewed and electronically signed by: MELIDA MASTERS MD on Mar 03 2024 10:50AM [facility] DIVISION OF RADIOLOGY * * *Final Report* [...] the midthoracic spine. DIVISION OF RADIOLOGY Provider, [facility] Julian [facility] - 03/03/2024 * * *Final Report* * [...] spine. IMPRESSION IMPRESSION: No acute radiographic abnormality. Science Interpreter: ALEX Transcribe Date/Time: Mar 03 2024 10:46A Dictated by : GAUDENCIO DELGADO, This examination was interpreted and the report reviewed and electronically signed by: MELIDA MASTERS MD on Mar 03 2024 10:50AM EST [facility] Radiology Study observation (narrative) [facility] XR Chest PA and LateralOrder ed By: Ccf Provider on 03-03-2024 [facility] aPTT PPPon 03-03-2024 aPTT Coag (PPP) [Time] 26.5 s Normal 23.0-32.4 Cl [facility] Comment on above: Order Comment: Speci men Type: BLOOD SPECIMENOrdering Facility: [facility] Address: [address] [place] [address] Performed By: #### 3 4528-0, 27934-0 ####[facility] LABCLIA [id number] [place] [address] [place] CNPNon 02-27-2024 CNPN Normal [facility] CNPNon 02-25-2024 CNPN Normal [facility] CNPNon 02-20-2024 CNPN Normal [facility] CNPNon 02-11-2024 CNPN Telephone (AGVASACC) HILDA MULLINS ([id number]) 1945 F Date Time Provider Department 02/11/24 LENA JENSEN During your visit today, we recorded the following information about you: Lena Jensen, LENNY.MANAGER [address]IGHW[address] 02/11/2024 11:09 AM Signed Called pt to invite to open heart education class. She said she is cancelling surgery, does not want to pursue surgery, and did not really expand on why. Notified museum service scheduler. Lena Jensen APRN.MANAGER [address]IGHW[address] Allergies As of Date: 02/11/2024 Noted Allergy Reaction CODEINE 02/13/2005 8 - GI Upset MEDROL DOSE PACK (METHYLPREDNISOL*09/24/2006 9 - Itching Comments: upper arms and chest redness and itching, and chest heaviness OXYCODONE 01/31/2024 14 - Other: See Comments Comments: Patient states that she vomited; she had back surgery [facility] SULFA (SULFONAMIDE ANTIBIOTICS) 01/31/2024 4 - [...] Status:Closed by LENA JENSEN on 02/11/24 Normal [facility] Surgery Visit Reporton 02-10 Surgery Visit Report [facility] [address] [place] [address] OFFICE VISIT Date of Service: 02/11/24 MR#: [id number] Acct: [id number] Name: HILDA MULLINS ANN Rep #: [id number] : 1945 Provider: RYLEE saenz Age/Sex: 78/F Location: [facility] Status: Signed Intake Vital Signs 01/28/24 06:47 Height 5 ft 2 in Intake Visit Reasons: HERNIA 10- Chief Complaint: hernia 01/27 Is patient in [...] mg-CF borate 108 mg tablet ([employer]) lisinopril 20 mg tablet 20 mg PO [...] Diagnoses S/P inguinal hernia repair Z98.890; Z87.19 [facility] Medical History Wears hearing aid Wears glasses [...] additional social history: patient is retired from [employer] after 41 years [employer]- works at [employer] Assessment and Plan (No Qualifiers) Assessment and Plan (1) S/P inguinal hernia repair: Status: Acute Plan: Recommend no lifting greater than 20 pounds for 2 additional weeks Follow-up as needed 02/11/24913 Date Angie Juarez Signature: Date (if applicable) CC: Dr. Davey Valente, DO Normal [facility] CBC W/Diff, Automatedon 10-3 0-2024 Absolute Lymph 1.90 X10 3/uL Normal 0.83-4.51 [facility] Comment on above: Performed By: #### L 100.0100, L500.4050 ####[facility] [address] [place], [address] Absolute Neut 5.6 X10 3/uL Normal 2.0-7.7 [facility] Comment on above: Performed By: #### L 100.0100, L500.4050 ####[facility] [address] [place], [address] Basophils/100 WBC (Bld) 1.1 % High 0-1 [facility] Comment on above: Performed By: #### L 100.0100, L500.4050 ####[facility] [address] [place], [address] Eosinophils/100 WBC (Bld) 3.6 % Normal 0-5 [facility] Comment on above: Performed By: #### L 100.0100, L500.4050 ####[facility] [address] [place], [address] Erythrocyte distribution width (RBC) [Ratio] 13.6 % Normal 11.6-14.6 [facility] Comment on above: Performed By: #### L 100.0100, L500.4050 ####[facility] [address] [place], [address] Hematocrit (Bld) [Volume fraction] 40.4 % Normal 37-47 [facility] Comment on above: Performed By: #### L 100.0100, L500.4050 ####[facility] [address] [place], [address] Hemoglobin (Bld) [Mass/Vol] 12.8 g/dL Normal 12.0-15.0 [facility] Comment on above: Performed By: #### L 100.0100, L500.4050 ####[facility] [address] [place], [address] IG% 0.500 Normal 0.0-0.9 [facility] Comment on above: Result Comment: IG% - Immature Granulocytes (promyelocytes, myelocytes and metamyelocytes) > 1% indicates that a LEFT SHIFT is Present. Performed By: #### L 100.0100, L500.4050 ####[facility] [address] [place], [address] Lymphocytes/100 WBC (Bld) 21.8 % Normal 19-41 [facility] Comment on above: Performed By: #### L 100.0100, L500.4050 ####[facility] [address] [place], [address] MCH (RBC) [Entitic mass] 29.4 pg Normal 27.0-32.0 [facility] Comment on above: Performed By: #### L 100.0100, L500.4050 ####[facility] [address] [place], [address] MCHC (RBC) [Mass/Vol] 31.7 g/dL Low 32-36 [facility] Comment on above: Performed By: #### L 100.0100, L500.4050 ####[facility] [address] [place], [address] MCV (RBC) [Entitic vol] 92.9 fL Normal 81-99 [facility] Comment on above: Performed By: #### L 100.0100, L500.4050 ####[facility] [address] [place], [address] Monocytes/100 WBC (Bld) 9.0 % Normal 0-10 [facility] Comment on above: Performed By: #### L 100.0100, L500.4050 ####[facility] [address] [place], [address] Neutrophils/100 WBC (Bld) 64.0 % Normal 47-70 [facility] Comment on above: Performed By: #### L 100.0100, L500.4050 ####[facility] [address] [place], [address] Nucleated RBC (Bld) [#/Vol] 0 10*3/uL Normal 0-5 [facility] Comment on above: Performed By: #### L 100.0100, L500.4050 ####[facility] [address] [place], [address] Platelet mean volume (Bld) [Entitic vol] 11.8 fL Normal 6.2-12.0 [facility] Comment on above: Performed By: #### L 100.0100, L500.4050 ####[facility] [address] [place], [address] Platelets (Bld) [#/Vol] 307 10*3/uL Normal 150-450 [facility] Comment on above: Performed By: #### L 100.0100, L500.4050 ####[facility] [address] [place], [address] RBC (Bld) [#/Vol] 4.35 10*6/uL Normal 4.2-5.4 [facility] Comment on above: Performed By: #### L 100.0100, L500.4050 ####[facility] [address] [place], [address] RDW SD 46.5 fl High 35.1-43.9 [facility] Comment on above: Performed By: #### L 100.0100, L500.4050 ####[facility] [address] [place], [address] WBC (Bld) [#/Vol] 8.7 10*3/uL Normal 4.4-11.0 [facility] Comment on above: Performed By: #### L 100.0100, L500.4050 ####[facility] [address] [place], [address] Comprehensive Metabolic [facility] 02-06-2024 Albumin [Mass/Vol] 3.5 g/dL Normal 3.2-5.0 [facility] Comment on above: Performed By: #### L 100.0100, L500.4050 ####[facility] [address] [place], [address] Albumin/Globulin [Mass ratio] 1.0 {ratio} Normal 0.9-2.4 [facility] Comment on above: Performed By: #### L 100.0100, L500.4050 ####[facility] [address] [place], [address] ALK P 69 U/L Normal 45-117 [facility] Comment on above: Performed By: #### L 100.0100, L500.4050 ####[facility] [address] [place], [address] ALT [Catalytic activity/Vol] 16 U/L Normal 13-56 [facility] Comment on above: Performed By: #### L 100.0100, L500.4050 ####[facility] [address] [place], [address] AST [Catalytic activity/Vol] 16 U/L Normal 15-37 [facility] Comment on above: Performed By: #### L 100.0100, L500.4050 ####[facility] [address] [place], [address] Bilirubin [Mass/Vol] 0.70 mg/dL Normal 0.20-1.00 [facility] Comment on above: Result Comment: For patients on eltrombopag therapy, use of [employer]ension [place] TBIL is not recommended. Performed By: #### L 100.0100, L500.4050 ####[facility] [address] [place], [address] BUN/CRE 17.4 RATIO Normal 10-20 [facility] Comment on above: Performed By: #### L 100.0100, L500.4050 ####[facility] [address] [place], [address] CA,Total 9.6 mg/dL Normal 8.5-10.1 [facility] Comment on above: Performed By: #### L 100.0100, L500.4050 ####[facility] [address] [place], [address] Chloride [Moles/Vol] 107 mmol/L Normal 98-107 [facility] Comment on above: Performed By: #### L 100.0100, L500.4050 ####[facility] [address] [place], [address] CO2 [Moles/Vol] 27.0 mmol/L Normal 21.0-32.0 [facility] Comment on above: Performed By: #### L 100.0100, L500.4050 ####[facility] [address] [place], [address] Creatinine [Mass/Vol] 0.98 mg/dL Normal 0.55-1.02 [facility] Comment on above: Result Comment: The validity of the calculated GFR GFRAA in patients over 70 years has not been determined. Clinical correlation is essential. Performed By: #### L 100.0100, L500.4050 ####[facility] [address] [place], [address] EST GFR - AA 70 mL/min Normal >60 [facility] Comment on above: Result Comment: Afri can Dominican GFR Calc Performed By: #### L 100.0100, L500.4050 ####[facility] [address] [place], [address] GAP 6 Normal 5-15 [facility] Comment on above: Performed By: #### L 100.0100, L500.4050 ####[facility] [address] [place], [address] GFR/1.73 sq M.predicted among non-blacks MDRD (S/P/Bld) [Vol rate/Area] 58 mL/min/{1.73_m2} Low >60 [facility] Comment on above: Result Comment: Non- GFR Calc Performed By: #### L 100.0100, L500.4050 ####[facility] [address] [place], [address] Globulin (S) [Mass/Vol] 3.6 g/dL Normal 2.2-4.2 [facility] Comment on above: Performed By: #### L 100.0100, L500.4050 ####[facility] [address] [place], [address] Glucose [Mass/Vol] 82 mg/dL Normal 74-106 [facility] Comment on above: Performed By: #### L 100.0100, L500.4050 ####[facility] [address] [place], [address] Potassium [Moles/Vol] 4.2 mmol/L Normal 3.5-5.1 [facility] Comment on above: Performed By: #### L 100.0100, L500.4050 ####[facility] [address] [place], [address] Sodium [Moles/Vol] 140 mmol/L Normal 136-145 [facility] Comment on above: Performed By: #### L 100.0100, L500.4050 ####[facility] [address] [place], [address] T PROT 7.1 g/dL Normal 6.4-8.2 [facility] Comment on above: Performed By: #### L 100.0100, L500.4050 ####[facility] [address] [place], [address] Urea nitrogen [Mass/Vol] 17 mg/dL Normal 7-18 [facility] Comment on above: Performed By: #### L 100.0100, L500.4050 ####[facility] [address] [place], [address] [facility] ([id number]) 1945 F Date Time Provider Department 02/04/24 JEREMIAS TANNER During your visit today, we recorded the following information about you: Trev Weber MA 02/04/2024 11:30 AM Signed Referral to EP Dr. Ramos sent via [employer] Confirmation number: [id number] 02/06/24 CT Chest wo contrast 11:40am @ [facility] Phoned pt to schedule regarding future [...] that she vomited; she had back surgery [facility] SULFA (SULFONAMIDE ANTIBIOTICS) 01/31/2024 4 - [...] Encounter Status:Closed by MARCELLUS WEBER on 02/04/24 [facility] CNOVon 01-31-2024 CNOV Office Visit (CAROL MORGAN) HILDA MULLINS ([id number]) 1945 F Date Time Provider Department 01/31/24 3:30 PM JEREMIAS TANNER During your visit today, we recorded the following information about you: Pulse Blood pressure Weight Height 81/minute 120/80 72.8 kg 1.575 m Esperanza Gonzalez APRN.CNP 05/15/2024 5:13 PM Signed Procedure Type: Isolated [...] 31, 2024 TIME: 4:07 PM PAGER/CONTACT #: [phone] Esperanza Gonzalez APRN.CNP 01/31/2024 5:16 PM Signed [...] has been ordered for you. Please call [phone] to schedule Thanks for coming in to see us today. Please call us if you have any concerns/questions: [phone] Esperanza Gonzalez APRN.MANA[address] Cardiothoracic surgery [employer] Jeremias Tanner MD 05/15/2024 5:13 PM Signed [...] normal V function. Transesophageal echo performed at [facility] in December showed 3+ MR with [...] left , numerous surgeries CARDIAC CATH 01/17/2024 [facility] COLONOSCOPY FLX DX W/COLLJ SPEC WHEN [...] Heart Father (more content not included)... Normal [facility] Discharge Instructionon 01-08 Discharge Instruction [facility] Medical Records Department [address] [place] [address] Instructions for Home/Discharge Instructions 01/28/24 0856 MR#: [id number] Acct: [id number] Name: HILDA MULLINS Rep #: [id number] : 1945 78 From: Timur Simpson MD PCP: Dr. Davey Valente, DO Status:REG [facility] Discharge Instructions Procedure Hernia Diet Discharge Diet: [...] to schedule 2 week follow up appointment. [phone] Test Results: Test results from this visit will be discussed in further detail at your follow-up appointment, if applicable. Discharge Plan Admission Attending Provider: Timur Simpson Primary Care Provider: Davey Valente Instructions Print Language: Tuvaluan Discharge Orders/Prescriptions Prescriptions: New oxycodone 5 mg Tablet 5 - 10 mg PO Q4H PRN PRN (Reason: Pain Score 4-10) 5 Days Qty: 10 0RF No Action pantoprazole [Protonix] 20 mg tablet,delayed release (DR/EC) 20 mg PO DAILY [employer] 750 mg-100 mg- 1.65 mg-108 mg [...] MD CC: Dr. Davey Valente DO Signed [facility] MR/POSTOP.[facility] 01-28-2024 MR/POSTOP.[facility] Medical Records Department [address] [place] [address] Anesthesia Postop Eval I 01/28/24 0836 MR#: [id number] Acct: [id number] Name: HILDA MULLINS ANN Rep #: [id number] : 1945 78 From: Mara Petit CRNA PCP: Dr. Davey Valente DO Status:REG SDC Y Race: C Location: [address] Anesthesia: Postop Eval I Current Vital Signs [...] Anesthesia document: Postop Eval 1 completed: Yes 01/28/24 08 Date Mara Petit [employer] DIRECTOR Cosigner Signature: Date CC: Signed Normal [facility] MR/[id number] 01-28-2024 MR/POSTOPAN2 [facility] Medical Records Department [address] [place] [address] Anesthesia Postop Eval II 01/28/2446 MR#: [id number] Acct: [id number] Name: HILDA MULLINS Rep #: [id number] : 1945 78 From: Rashad Berg MD PCP: Dr. Davey Valente, DO Status:REG SD Y Race: C Location: [place] [address]- Anesthesia Postop Eval I Sum Postop Eval Completion status Anesthesia document: Postop Eval 1 completed: Yes Anesthesia Postop Eval I Summary Anesthesia Postop Eval I Summary: Anesthesia Postop Eval I: Assessment Summary Airway patent Yes 01/28/24 08:38 [employer] DIRECTOR.SKOBY Spontaneous unlabored Yes 01/28/24 08:38 ADVANCED RESEARCH PROGRAMS DIRECTOR.ELLIOTTOBEssie respirations Mental status Awake,Calm 01/28/24 08:38 ADVANCED RESEARCH PROGRAMS DIRECTOR.SKOBY nausea No 01/28/24 08:38 ADVANCED RESEARCH PROGRAMS DIRECTOR.SKOBY Vomiting No 01/28/24 08:38 ADVANCED RESEARCH PROGRAMS DIRECTOR.SKOBY Anesthesia Postop Eval I: Fluid Summary Crystalloid volume administer 750 01/28/24 08:38 ADVANCED RESEARCH PROGRAMS DIRECTOR.SKOBY (ml) Colloids volume administered ( ml) Blood Product volume administered (ml) Total IV fluid infused 750 01/28/24 08:38 ADVANCED RESEARCH PROGRAMS DIRECTOR.SKOBY Anesthesia Postop Eval I: Summary Notes Anesthesia Complication No 01/28/24 08:38 ADVANCED RESEARCH PROGRAMS DIRECTOR.SKOBY Anesthesia Complication Comment: Post-operative progress note Anesthesia: Postop Eval II Evaluation Mental status: Awake Pain Level: 0 nausea: No Vomiting: No 01/28/24 0847 Date Rashad Berg MD Cosigner Signature: Date CC: Signed Normal [facility] Operative Reporton 4 Operative Report [facility] Medical Records Department [address] [place] [address] Operative Report 01/28/24 0841 MR#: [id number] Acct: [id number] Name: HILDA MULLINS Rep #: [id number] : 1945 78 From: Timur Simpson MD PCP: Dr. Davey Valente, Status:[facility] Location: [place] [address] Report of Operation Date of Procedure: 01/28/24 [...] CC: Dr. Timur Simpson MD; Dr. Davey Valente DO Signed Normal [facility] CBC W/Diff, Automatedon 01-07 Absolute Lymph 1.62 X10 3/uL Normal 0.83-4.51 [facility] Comment on above: Performed By: #### L 501.9520, L500.2500, L100.0100 #### [facility] Laboratory [address] [place], [address] Absolute Neut 6.5 X10 3/uL Normal 2.0-7.7 [facility] Comment on above: Performed By: #### L 501.9520, L500.2500, L100.0100 #### [facility] Laboratory [address] [place], [address] Basophils/100 WBC (Bld) 0.5 % Normal 0-1 [facility] Comment on above: Performed By: #### L 501.9520, L500.2500, L100.0100 #### [facility] Laboratory [address] [place], [address] Eosinophils/100 WBC (Bld) 1.0 % Normal 0-5 [facility] Comment on above: Performed By: #### L 501.9520, L500.2500, L100.0100 #### [facility] Laboratory [address] [place], [address] Erythrocyte distribution width (RBC) [Ratio] 13.5 % Normal 11.6-14.6 [facility] Comment on above: Performed By: #### L 501.9520, L500.2500, L100.0100 #### [facility] Laboratory [address] [place], [address] Hematocrit (Bld) [Volume fraction] 42.1 % Normal 37-47 [facility] Comment on above: Performed By: #### L 501.9520, L500.2500, L100.0100 #### [facility] Laboratory [address] [place], [address] Hemoglobin (Bld) [Mass/Vol] 13.4 g/dL Normal 12.0-15.0 [facility] Comment on above: Performed By: #### L 501.9520, L500.2500, L100.0100 #### [facility] Laboratory [address] [place], [address] IG% 0.500 Normal 0.0-0.9 [facility] Comment on above: Result Comment: IG% - Immature Granulocytes (promyelocytes, myelocytes and metamyelocytes) > 1% indicates that a LEFT SHIFT is Present. Performed By: #### L 501.9520, L500.2500, L100.0100 #### [facility] Laboratory [address] [place], [address] Lymphocytes/100 WBC (Bld) 18.5 % Low 19-41 [facility] Comment on above: Performed By: #### L 501.9520, L500.2500, L100.0100 #### [facility] Laboratory [address] [place], [address] MCH (RBC) [Entitic mass] 28.9 pg Normal 27.0-32.0 [facility] Comment on above: Performed By: #### L 501.9520, L500.2500, L100.0100 #### [facility] Laboratory [address] [place], [address] MCHC (RBC) [Mass/Vol] 31.8 g/dL Low 32-36 [facility] Comment on above: Performed By: #### L 501.9520, L500.2500, L100.0100 #### [facility] Laboratory [address] [place], [address] MCV (RBC) [Entitic vol] 90.9 fL Normal 81-99 [facility] Comment on above: Performed By: #### L 501.9520, L500.2500, L100.0100 #### [facility] [address] [place], [address] Monocytes/100 WBC (Bld) 5.6 % Normal 0-10 [facility] Comment on above: Performed By: #### L 501.9520, L500.2500, L100.0100 #### [facility] Laboratory [address] [place], [address] Neutrophils/100 WBC (Bld) 73.9 % High 47-70 [facility] Comment on above: Performed By: #### L 501.9520, L500.2500, L100.0100 #### [facility] [address] [place], [address] Nucleated RBC (Bld) [#/Vol] 0 10*3/uL Normal 0-5 [facility] Comment on above: Performed By: #### L 501.9520, L500.2500, L100.0100 #### [facility] Laboratory [address] [place], [address] Platelet mean volume (Bld) [Entitic vol] 11.2 fL Normal 6.2-12.0 [facility] Comment on above: Performed By: #### L 501.9520, L500.2500, L100.0100 #### [facility] Laboratory [address] [place], [address] Platelets (Bld) [#/Vol] 258 10*3/uL Normal 150-450 [facility] Comment on above: Performed By: #### L 501.9520, L500.2500, L100.0100 #### [facility] Laboratory [address] [place], [address] RBC (Bld) [#/Vol] 4.63 10*6/uL Normal 4.2-5.4 [facility] Comment on above: Performed By: #### L 501.9520, L500.2500, L100.0100 #### [facility] Laboratory [address] [place], [address] RDW SD 45.2 fl High 35.1-43.9 [facility] Comment on above: Performed By: #### L 501.9520, L500.2500, L100.0100 #### [facility] [address] [place], [address] WBC (Bld) [#/Vol] 8.8 10*3/uL Normal 4.4-11.0 [facility] Comment on above: Performed By: #### L 501.9520, L500.2500, L100.0100 #### [facility] Laboratory [address] [place], [address] CBC-Complete Blood Cnt No Di ffon 01-24-2024 HCT Normal 37-47 [facility] Comment on above: Result Comment: CBC ORDERED Performed By: #### L 501.9520, L500.2500, L100.0100 #### [facility] [address] [place], [address] HGB Normal 12.0-15.0 [facility] Comment on above: Result Comment: CBC ORDERED Performed By: #### L 501.9520, L500.2500, L100.0100 #### [facility] Laboratory [address] [place], [address] MCH Normal 27.0-32.0 [facility] Comment on above: Result Comment: CBC ORDERED Performed By: #### L 501.9520, L500.2500, L100.0100 #### [facility] Laboratory [address] [place], [address] MCHC Normal 32-36 [facility] Comment on above: Result Comment: CBC ORDERED Performed By: #### L 501.9520, L500.2500, L100.0100 #### [facility] [address] [place], [address] MCV Normal 81-99 [facility] Comment on above: Result Comment: CBC ORDERED Performed By: #### L 501.9520, L500.2500, L100.0100 #### [facility] [address] [place], [address] PLT Normal 150-450 [facility] Comment on above: Result Comment: CBC ORDERED Performed By: #### L 501.9520, L500.2500, L100.0100 #### [facility] Laboratory [address] [place], [address] RBC Normal 4.2-5.4 [facility] Comment on above: Result Comment: CBC ORDERED Performed By: #### L 501.9520, L500.2500, L100.0100 #### [facility] [address] [place], [address] RDW CV Normal 11.6-14.6 [facility] Comment on above: Result Comment: CBC ORDERED Performed By: #### L 501.9520, L500.2500, L100.0100 #### [facility] Laboratory [address] [place], [address] RDW SD Normal 35.1-43.9 [facility] Comment on above: Result Comment: CBC ORDERED Performed By: #### L 501.9520, L500.2500, L100.0100 #### [facility] [address] [place], [place], [address] WBC Normal 4.4-11.0 [facility] Comment on above: Result Comment: CBC ORDERED Performed By: #### L 501.9520, L500.2500, L100.0100 #### [facility] Laboratory [address] [place], [address] CNPNon 01-18-2024 CNPN Telephone ([employer]) HILDA MULLINS ([id number]) 1945 F Date Time Provider Department 01/18/24 [facility]EREMIAS TANNER [facility] During your visit today, we recorded the following information about you: Eloisa Mahmood 01/18/2024 11:56 AM Signed Referral received from [facility] for Dr. Tanner. Fax was sent to [facility] for images. Referral from [facility]/Dr. Alejandro #[phone] - Non-rheumatic mitral prolapse severe and insufficiency [...] Status:Closed by ELOISA MAHMOOD on 01/18/24 Normal [facility] Cardiac Cath Diagnosticon Cardiac Cath Diagnostic [facility] Imaging Services [address] [place] [address] Cardiac Cath Diagnostic MR#: [id number] Acct: [id number] Name: HILDA MULLINS Rep #: [id number] : 1945 78 From: Kenny Alejandro MD PCP: Dr. Davey Valente, DO Status:REG [facility] Patient Name: HILDA MULLINS Study Date: 01/17/2024 Performing: Kenny Alejandro MD Ht: 62 inches 157.48 cm : 1945 Wt: 162 lbs 73.48 kg Age: 78 Gender: female BSA: 1.75 PROCEDURE(S) PERFORMED DC01-(93344)LHC/COR/LV CLINICAL PROFILE AND INDICATIONS Indications: Valvular Disease [...] multiple views using a 5 Fr. 4.0 Cordell catheter. Left Coronary Artery selective angiography was performed in multiple views using a 5 Fr. 4.0 Cordell catheter. Left Ventriculography was performed in RODRIGUEZ [...] MD On 01/17/2024 08:40:38 Kenny Alejandro MD 01/17/24840 Date Kenny Juarez Signature: Date (if indicated) CC: Dr. Kenny Alejandro MD; Dr. Davey Valente DO Date Dictated: 01/17/24809 Date Transcribed: 01/17/24839 Science Interpreter: CO Signed Normal [facility] Basic Metabolic Profile (BMP )on 01-09-2024 BUN/CRE 17.0 RATIO Normal 01-26 [facility] Comment on above: Performed By: #### L 501.9520, L500.2500, L100.0100 #### [facility] Laboratory [address] [place], [place], [address] CA,Total 9.8 mg/dL Normal 8.5-10.1 [facility] Comment on above: Performed By: #### L 501.9520, L500.2500, L100.0100 #### [facility] Laboratory [address] [place], [address] Chloride [Moles/Vol] 109 mmol/L High 98-107 [facility] Comment on above: Performed By: #### L 501.9520, L500.2500, L100.0100 #### [facility] Laboratory [address] [place], [address] CO2 [Moles/Vol] 25.0 mmol/L Normal 21.0-32.0 [facility] Comment on above: Performed By: #### L 501.9520, L500.2500, L100.0100 #### [facility] Laboratory [address] [place], [address] Creatinine [Mass/Vol] 1.00 mg/dL Normal 0.55-1.02 [facility] Comment on above: Result Comment: The validity of the calculated GFR GFRAA in patients over 70 years has not been determined. Clinical correlation is essential. Performed By: #### L 501.9520, L500.2500, L100.0100 #### [facility] Laboratory [address] [place], [address] EST GFR - AA 69 mL/min Normal >60 [facility] Comment on above: Result Comment: Afri can Dominican GFR Calc Performed By: #### L 501.9520, L500.2500, L100.0100 #### [facility] Laboratory [address] [place], [address] GAP 7 Normal 5-15 [facility] Comment on above: Performed By: #### L 501.9520, L500.2500, L100.0100 #### [facility] Laboratory [address] [place], [address] GFR/1.73 sq M.predicted among non-blacks MDRD (S/P/Bld) [Vol rate/Area] 57 mL/min/{1.73_m2} Low >60 [facility] Comment on above: Result Comment: Non- GFR Calc Performed By: #### L 501.9520, L500.2500, L100.0100 #### [facility] Laboratory [address] [place], [address] Glucose [Mass/Vol] 97 mg/dL Normal 74-106 [facility] Comment on above: Performed By: #### L 501.9520, L500.2500, L100.0100 #### [facility] Laboratory [address] [place], [address] Potassium [Moles/Vol] 3.7 mmol/L Normal 3.5-5.1 [facility] Comment on above: Performed By: #### L 501.9520, L500.2500, L100.0100 #### [facility] Laboratory [address] [place], [address] Sodium [Moles/Vol] 141 mmol/L Normal 136-145 [facility] Comment on above: Performed By: #### L 501.9520, L500.2500, L100.0100 #### [facility] Laboratory [address] [place], [address] Urea nitrogen [Mass/Vol] 17 mg/dL Normal 7-18 [facility] Comment on above: Performed By: #### L 501.9520, L500.2500, L100.0100 #### [facility] Laboratory [address] [place], [address] Chest PA and Lateralon 01-08 Chest PA and Lateral [facility] Imaging Services [address] [place] [address] Chest PA and Lateral MR#: [id number] Acct: [id number] Name: HILDA MULLINS Rep #: [id number] : 1945 F 78 From: Artis neff DO PCP: Dr. Davey Valente, DO Status: PRE [facility] Study: Chest PA and Lateral Date of Exam: 01/09/24 Exam# [id number] Ordering Dr: Soraya Mark :[id number] EXAM: XR CHEST, 2 VIEWS CLINICAL INDICATION: [...] at 23:57 EDT , CC: Dr. Davey Valente, ; MATILDE Rapp Science Interpreter: Signed Normal [facility] Prothrombin Time w/INRon INR Coag (PPP) [Relative time] 1.1 {INR} Normal [facility] Comment on above: Performed By: #### L 501.9520, L500.2500, L100.0100 #### [facility] Laboratory [address] [place], [address] PT Coag (PPP) [Time] 14.5 s Normal 11.7-14.9 [facility] Comment on above: Performed By: #### L 501.9520, L500.2500, L100.0100 #### [facility] Laboratory [address] [place], [address] Surgery Visit Reporton 01-08 Surgery Visit Report [facility] [address] [place] [address] OFFICE VISIT Date of Service: 01/09/24 MR#: [id number] Acct: [id number] Name: HILDA MULLINS Rep #: [id number] : 1945 Provider: Dr. Timur bowden MD Age/Sex: 78/F Location: [facility] Status: Signed Intake Vital Signs 08/03/22 15:45 [...] 1.65 mg-CF borate 108 mg tablet ([employer]) lisinopril 20 mg tablet 20 mg PO [...] additional social history: patient is retired from [employer] after 41 years [employer]ayne- works at [employer] HPI HPI HPI: Patient is an [...] complaints, except (more content not included)... Normal [facility] Echo Transesophageal (FREDERIC)on 01-07-2024 Echo Transesophageal (FREDERIC) [facility] Cardiovascular Services [address] [place] [address] Echo Transesophageal (FREDERIC) 01/07/24 1012 MR#: [id number] Acct: [id number] Name: HILDA MULLINS Rep #: [id number] : 1945 78 From: Kenny Alejandro MD Attending Dr: Dr. Kenny Alejandro MD Status: JANICE WEEMS Ordering Dr: Kenny Alejandro MD Date: 01/07/24 Location: [facility] Sex: F C Admitted: Reason For Study: MITRAL VALVE PROLAPSE Medication FREDERIC probe 6VT-D (SN [id number]) passed without difficulty. No complications were noted. Cetacaine Topical [place] given X4 orally. Versed 1 mg given [...] Physician: Davey Valente Performed By: Michelle Esparza, MC 01/07/24 1212 Date Kenny Alejandro MD CC: Dr. Kenny Alejandro MD; Dr. Davey Valente DO Date Dictated: 01/07/24 1012 Date Transcribed: 01/07/24 1212 Science Interpreter: Signed Normal [facility] Basic Metabolic Profile (BMP )on 01-04-2024 BUN/CRE 20.0 RATIO Normal 10-20 [facility] Comment on above: Performed By: #### L 501.9520, L500.2500, L100.0100 #### [facility] Laboratory [address] [place], [address] CA,Total 9.8 mg/dL Normal 8.5-10.1 [facility] Comment on above: Performed By: #### L 501.9520, L500.2500, L100.0100 #### [facility] Laboratory [address] [place], [address] Chloride [Moles/Vol] 106 mmol/L Normal 98-107 [facility] Comment on above: Performed By: #### L 501.9520, L500.2500, L100.0100 #### [facility] Laboratory [address] [place], [address] CO2 [Moles/Vol] 28.0 mmol/L Normal 21.0-32.0 [facility] Comment on above: Performed By: #### L 501.9520, L500.2500, L100.0100 #### [facility] Laboratory [address] [place], [address] Creatinine [Mass/Vol] 1.05 mg/dL High 0.55-1.02 [facility] Comment on above: Result Comment: The validity of the calculated GFR GFRAA in patients over 70 years has not been determined. Clinical correlation is essential. Performed By: #### L 501.9520, L500.2500, L100.0100 #### [facility] Laboratory [address] [place], [address] EST GFR - AA 65 mL/min Normal >60 [facility] Comment on above: Result Comment: Afri can Dominican GFR Calc Performed By: #### L 501.9520, L500.2500, L100.0100 #### [facility] Laboratory [address] [place], [address] GAP 7 Normal 5-15 [facility] Comment on above: Performed By: #### L 501.9520, L500.2500, L100.0100 #### [facility] Laboratory [address] [place], [address] GFR/1.73 sq M.predicted among non-blacks MDRD (S/P/Bld) [Vol rate/Area] 54 mL/min/{1.73_m2} Low >60 [facility] Comment on above: Result Comment: Non- GFR Calc Performed By: #### L 501.9520, L500.2500, L100.0100 #### [facility] Laboratory [address] [place], [address] Glucose [Mass/Vol] 100 mg/dL Normal 74-106 [facility] Comment on above: Result Comment: Fast ing Glucose result from 100 to 125 mg/dL suggests IMPAIRED HOMEOSTASIS per A.D.A. criteria. Performed By: #### L 501.9520, L500.2500, L100.0100 #### [facility] Laboratory [address] [place], [address] Potassium [Moles/Vol] 3.7 mmol/L Normal 3.5-5.1 [facility] Comment on above: Performed By: #### L 501.9520, L500.2500, L100.0100 #### [facility] [address] [place], [address] Sodium [Moles/Vol] 140 mmol/L Normal 136-145 [facility] Comment on above: Performed By: #### L 501.9520, L500.2500, L100.0100 #### [facility] Laboratory [address] [place], [address] Urea nitrogen [Mass/Vol] 21 mg/dL High 7-18 [facility] Comment on above: Performed By: #### L 501.9520, L500.2500, L100.0100 #### [facility] Laboratory [address] [place], [address] 12 Lead EKG performed by [facility] on 01-02-2024 12 Lead EKG performed by [facility] [address] [place] [address] 12 Lead EKG performed by [facility] 01/02/24 1254 MR#: [id number] Acct: [id number] Name: HILDA MULLINS Rep #: [id number] : 1945 78 From: Kenny Alejandro MD Attending Dr: Dr. Kenny Alejandro MD Status: DEP A MB Ordering Dr: Kenny Alejandro MD Date: 01/02/24 Location: [facility] Sex: F C Admitted: BMS/12 Lead EKG performed by [facility] ECG Report Interpretation Si nus Rhythm -Left atrial enlargement. BORDERLINEElectronically signed on 01/04/2024 at 07:47 by Kenny Alejandrowood [employer] Version [id number] 01/04/24 0750 Date Kenny Alejandro MD CC: Dr. Davey Valente, DO Date Dictated: 01/02/24 125 Date Transcribed: 01/02/241253 Science Interpreter: CO Signed Normal [facility] Cardiology Visit Reporton Cardiology Visit Report [facility] [address] [place], [place] [address] OFFICE VISIT Date of Service: 01/02/24 MR#: [id number] Acct: [id number] Name: HILDA MULLINS Rep #: [id number] : 1945 Provider: Dr. 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 Accompanied by: Is patient in [...] mg-hyalur 1.65 mg-CF borate 108 mg tablet ([employer]) lisinopril 20 mg tablet 20 mg PO [...] additional social history: patient is retired from [employer] after 41 years [employer]ayne- works at [employer] ROS Const Const: Positive for fatigue (hard to complete ADLs) and headache(s); Negative for weakness, daytime sleepiness or difficulty sleeping ENT ENT: Positive for headache(s); Negative for dizziness or Nosebleed/epistaxis Cardio Chest Pain: No Palpitations: Yes (upon laying down) feels like its: pounding (more content not included)... Normal [facility] Echo Completeon 12-26-2023 Echo Complete [facility] [address] [place] [address] Echo Complete 12/26/23 1006 MR#: [id number] Acct: [id number] Name: HILDA MULLINS ANN Rep #: [id number] : 1945 78 From: Ashlee Freeman MD Attending Dr: Dr. Davey Valente, Status: REG CLI Ordering Dr: Davey Valente DO Date: 12/26/23 Location: [facility] Sex: F C Admitted: Reason For Study: [...] Physician: Davey Valente Performed By: Claudia Greene, LORELEICS, RVT 12/26/23 1610 Date Ashlee Freeman MD CC: Dr. Davey Valente, Date Dictated: 12/26/23 1006 Date Transcribed: 12/26/23 1610 Science Interpreter: Signed Normal [facility] Thoracic Spine Min 4 Viewson 12-17-2023 Thoracic Spine Min 4 Views [facility] Imaging Services [address] [place] [address] Thoracic Spine Min 4 Views MR#: [id number] Acct: [id number] Name: HILDA MULLINS Rep #: [id number] : 1945 F 77 From: Iain Juarez MD PCP: Dr. Davey Valente DO Status: REG CLI Study: Thoracic Spine Min 4 Views Date of Exam: 12/16 Exam# [id number] Ordering Dr: Araceli Brothers :[id number] STUDY: X-RAY - THORACIC SPINE REASON FOR [...] CC: Araceli Brothers; Dr. Davey Valente DO Science Interpreter: Signed Normal [facility] Absolute lymphocyte countOrd ered By: Shyla Randle on 05-17-2023 Lymphocytes Auto (Unsp spec) [#/Vol] 1.30 10*3/uL 0.83-4.51 [facility] Automated lymphocyte count a s percentage of total leukocytesOrdered By: Shyla Randle on 05-17-2023 Lymphocytes/100 WBC Auto (Unsp spec) 22.0 % 19-41 [facility] Basophil percentageOrdered B y: Shyla Randle on 05-17-2023 Basophils/100 WBC (Bld) 0.7 % 0-1 [facility] Bilirubin [Mass/Vol] 0.80 mg/dL 0.20-1.00 [facility] Comment on above: For patients on eltr ombopag therapy, use of Dim[place] TBIL is not recommended. Chloride [Moles/Vol] 107 mmol/L 98-107 [facility] Eosinophils/100 WBC (Bld) 1.2 % 0-5 [facility] Glucose [Mass/Vol] 144 mg/dL 74-106 [facility] Comment on above: Fasting Glucose resu lt greater than or equal to 126 mg/dL suggests DIABETES MELLITUS per A.D.A. criteria. Hemoglobin (Bld) [Mass/Vol] 13.4 g/dL 12.0-15.0 [facility] Monocytes/100 WBC (Bld) 5.8 % 0-10 [facility] Neutrophils (Bld) [#/Vol] 4.1 10*3/uL 2.0-7.7 [facility] Neutrophils/100 WBC (Bld) 70.1 % 47-70 [facility] Potassium [Moles/Vol] 3.8 mmol/L 3.5-5.1 [facility] Protein [Mass/Vol] 7.2 g/dL 6.4-8.2 [facility] Sodium [Moles/Vol] 138 mmol/L 136-145 [facility] WBC (Bld) [#/Vol] 5.9 10*3/uL 4.4-11.0 [facility] Determination of erythrocyte mean corpuscular volume (MCV)Ordered By: Shyla Randle on 05-17-2023 MCV (RBC) [Entitic vol] 91.3 fL 81-99 [facility] Erythrocyte distribution wid th ratioOrdered By: Shyla Randle on 05-17-2023 Erythrocyte distribution width (RBC) [Ratio] 13.3 % 11.6-14.6 [facility] Erythrocyte distribution wid th standard deviationOrdered By: Shyla Randle on 05-17-2023 Erythrocyte distribution width (RBC) [Entitic vol] 44.7 fL 35.1-43.9 [facility] Hematocrit Auto (Bld) [Volum e fraction]Ordered By: Shyla Randle on 05-17-2023 Hematocrit (Bld) [Volume fraction] 41.9 % 37-47 [facility] Immature granulocytes/100 WB C Auto (Bld)Ordered By: Shyla Randle on 05-17-2023 Immature granulocytes/100 WBC (Bld) 0.200 % 0.0-0.9 [facility] Comment on above: IG% - Immature Granu locytes (promyelocytes, myelocytes and metamyelocytes) > 1% indicates that a LEFT SHIFT is Present. Laboratory - Chemistry and C hemistry - challengeOrdered By: Shyla Randle on 05-17-2023 Albumin/Globulin [Mass ratio] 1.1 {ratio} 0.9-2.4 [facility] ALP [Catalytic activity/Vol] 66 U/L 45-117 [facility] ALT [Catalytic activity/Vol] 21 U/L 13-56 [facility] CO2 [Moles/Vol] 28.0 mmol/L 21.0-32.0 [facility] Globulin (S) [Mass/Vol] 3.5 g/dL 2.2-4.2 [facility] Urea nitrogen/Creatinine [Mass ratio] 19.3 mg/mg 10-20 [facility] Laboratory - Hematology and Cell countsOrdered By: Shyla Randle on 05-17-2023 MCH (RBC) [Entitic mass] 29.2 pg 27.0-32.0 [facility] MCHC (RBC) [Mass/Vol] 32.0 g/dL 32-36 [facility] Nucleated RBC/100 WBC (Bld) [Ratio] 0 % 0-5 [facility] Platelet mean volume (Bld) [Entitic vol] 11.6 fL 6.2-12.0 [facility] Platelets (Bld) [#/Vol] 219 10*3/uL 150-450 [facility] No Panel InformationOrdered By: Shyla Randle on 05-17-2023 Estimated GFR (MDRD) Amer 74 mL/min >60 [facility] Comment on above: GFR Calc Estimated GFR (MDRD) Non-Af Amer 61 mL/min >60 [facility] Comment on above: Non- GFR Calc RBC Auto (Bld) [#/Vol]Ordere d By: Shyla Randle on 05-17-2023 RBC (Bld) [#/Vol] 4.59 10*6/uL 4.2-5.4 [facility] Serum or plasma calcium mariely urement (mass/volume)Ordered By: Shyla Randle on 05-17-2023 Calcium [Mass/Vol] 9.5 mg/dL 8.5-10.1 [facility] Serum or plasma creatinine m easurement (mass/volume)Ordered By: Shyla Randle on 05-17-2023 Creatinine [Mass/Vol] 0.93 mg/dL 0.55-1.02 [facility] Comment on above: The validity of the calculated GFR & GFRAA in patients over 70 years has not been determined. Clinical correlation is essential. Serum or plasma urea nitroge n measurement (mass/volume)Ordered By: Shyla Randle on 05-17-2023 Urea nitrogen [Mass/Vol] 18 mg/dL 7-18 [facility] Thin prep Papanicolaou smear with manual screeningOrdered By: Shyla Randle on 05-17-2023 Thin prep Papanicolaou smear with manual screening 3.7 g/dL 3.2-5.0 [facility] Thin prep Papanicolaou smear with manual screening 22 U/L 15-37 [facility] Thin prep Papanicolaou smear with manual screening 3 5-15 [facility] Absolute lymphocyte countOrd ered By: Shyla Randle on 11-14-2022 Lymphocytes Auto (Unsp spec) [#/Vol] 1.59 10*3/uL 0.83-4.51 [facility] Basophil percentageOrdered B y: Shyla Randle on 11-14-2022 Basophils/100 WBC (Bld) 0.7 % 0-1 [facility] Bilirubin [Mass/Vol] 0.60 mg/dL 0.20-1.00 [facility] Comment on above: For patients on eltr ombopag therapy, use of [place] TBIL is not recommended. Chloride [Moles/Vol] 108 mmol/L 98-107 [facility] Eosinophils/100 WBC (Bld) 0.9 % 0-5 [facility] Glucose [Mass/Vol] 119 mg/dL 74-106 [facility] Comment on above: Fasting Glucose resu lt from 100 to 125 mg/dL suggests IMPAIRED HOMEOSTASIS per A.D.A. criteria. Neutrophils (Bld) [#/Vol] 4.6 10*3/uL 2.0-7.7 [facility] Neutrophils/100 WBC (Bld) 67.2 % 47-70 [facility] Potassium [Moles/Vol] 3.8 mmol/L 3.5-5.1 [facility] Protein [Mass/Vol] 7.2 g/dL 6.4-8.2 [facility] Sodium [Moles/Vol] 140 mmol/L 136-145 [facility] WBC (Bld) [#/Vol] 6.9 10*3/uL 4.4-11.0 [facility] Blood erythrocytes count (nu mber/volume)Ordered By: Shyla Randle on 11-14-2022 RBC (Bld) [#/Vol] 4.61 10*6/uL 4.2-5.4 [facility] Blood hemoglobin measurement (mass/volume)Ordered By: Shyla Randle on 11-14-2022 Hemoglobin (Bld) [Mass/Vol] 13.8 g/dL 12.0-15.0 [facility] Blood lymphocytes/100 leukoc ytesOrdered By: Shyla Randle on 11-14-2022 Lymphocytes/100 WBC (Bld) 23.2 % 19-41 [facility] Blood monocytes/100 leukocyt esOrdered By: Shyla Randle on 11-14-2022 Monocytes/100 WBC (Bld) 7.7 % 0-10 [facility] Blood platelet mean volumeOr dered By: Shyla Randle on 11-14-2022 Platelet mean volume (Bld) [Entitic vol] 12.6 fL 6.2-12.0 [facility] Determination of erythrocyte mean corpuscular volume (MCV)Ordered By: Shyla Randle on 11-14-2022 MCV (RBC) [Entitic vol] 94.4 fL 81-99 [facility] Hematocrit Auto (Bld) [Volum e fraction]Ordered By: Shyla Randle on 11-14-2022 Hematocrit (Bld) [Volume fraction] 43.5 % 37-47 [facility] Laboratory - Chemistry and C hemistry - challengeOrdered By: Shylalisa Randle on 11-14-2022 ALP [Catalytic activity/Vol] 63 U/L 45-117 [facility] ALT [Catalytic activity/Vol] 22 U/L 13-56 [facility] CO2 [Moles/Vol] 27.0 mmol/L 21.0-32.0 [facility] Globulin (S) [Mass/Vol] 3.4 g/dL 2.2-4.2 [facility] Urea nitrogen/Creatinine [Mass ratio] 19.1 mg/mg 10-20 [facility] Laboratory - Hematology and Cell countsOrdered By: Shylalisa Randle on 11-14-2022 Erythrocyte distribution width (RBC) [Entitic vol] 45.1 fL 35.1-43.9 [facility] Erythrocyte distribution width (RBC) [Ratio] 13.1 % 11.6-14.6 [facility] Immature granulocytes/100 WBC (Bld) 0.300 % 0.0-0.9 [facility] Comment on above: IG% - Immature Granu locytes (promyelocytes, myelocytes and metamyelocytes) > 1% indicates that a LEFT SHIFT is Present. MCH (RBC) [Entitic mass] 29.9 pg 27.0-32.0 [facility] Nucleated RBC/100 WBC (Bld) [Ratio] 0 % 0-5 [facility] MCHC Auto (RBC) [Mass/Vol]Or dered By: Shylalisa Randle on 11-14-2022 MCHC (RBC) [Mass/Vol] 31.7 g/dL 32-36 [facility] No Panel InformationOrdered By: Shylalisa Randle on 11-14-2022 Estimated GFR (MDRD) Amer 62 mL/min >60 [facility] Comment on above: GFR Calc Estimated GFR (MDRD) Non-Af Amer 51 mL/min >60 [facility] Comment on above: Non- GFR Calc Platelets bldOrdered By: Rehana Randle on 11-14-2022 Platelets (Bld) [#/Vol] 245 10*3/uL 150-450 [facility] Serum or plasma albumin mariely urement (mass/volume)Ordered By: Shyla Randle on 11-14-2022 Albumin [Mass/Vol] 3.8 g/dL 3.2-5.0 [facility] Serum or plasma albumin/glob ulin mass ratioOrdered By: Shyla Randle on 11-14-2022 Albumin/Globulin [Mass ratio] 1.1 {ratio} 0.9-2.4 [facility] Serum or plasma calcium mariely urement (mass/volume)Ordered By: Shyla Randle on 11-14-2022 Calcium [Mass/Vol] 9.0 mg/dL 8.5-10.1 [facility] Serum or plasma creatinine m easurement (mass/volume)Ordered By: Shyla Randle on 11-14-2022 Creatinine [Mass/Vol] 1.10 mg/dL 0.55-1.02 [facility] Comment on above: The validity of the calculated GFR & GFRAA in patients over 70 years has not been determined. Clinical correlation is essential. Serum or plasma urea nitroge n measurement (mass/volume)Ordered By: Shyla Randle on 11-14-2022 Urea nitrogen [Mass/Vol] 21 mg/dL 7-18 [facility] Thin prep Papanicolaou smear with manual screeningOrdered By: Shyla Randle on 11-14-2022 Thin prep Papanicolaou smear with manual screening 20 U/L 15-37 [facility] Thin prep Papanicolaou smear with manual screening 5 5-15 [facility] Absolute lymphocyte countOrd ered By: Dr. Randle on 05-22-2022 Lymphocytes Auto (Unsp spec) [#/Vol] 1.46 10*3/uL 0.83-4.51 [facility] Basophil percentageOrdered B y: Dr. Randle on 05-22-2022 Basophils/100 WBC (Bld) 0.6 % 0-1 [facility] Bilirubin [Mass/Vol] 0.70 mg/dL 0.20-1.00 [facility] Comment on above: For patients on eltr ombopag therapy, use of [place] TBIL is not recommended. Chloride [Moles/Vol] 106 mmol/L 98-107 [facility] Eosinophils/100 WBC (Bld) 0.7 % 0-5 [facility] Glucose [Mass/Vol] 89 mg/dL 74-106 [facility] Neutrophils (Bld) [#/Vol] 4.7 10*3/uL 2.0-7.7 [facility] Neutrophils/100 WBC (Bld) 69.9 % 47-70 [facility] Potassium [Moles/Vol] 4.0 mmol/L 3.5-5.1 [facility] Protein [Mass/Vol] 7.3 g/dL 6.4-8.2 [facility] Sodium [Moles/Vol] 140 mmol/L 136-145 [facility] WBC (Bld) [#/Vol] 6.7 10*3/uL 4.4-11.0 [facility] Blood erythrocytes count (nu mber/volume)Ordered By: Dr. Randle on 05-22-2022 RBC (Bld) [#/Vol] 4.63 10*6/uL 4.2-5.4 [facility] Blood hemoglobin measurement (mass/volume)Ordered By: Dr. Randle on 05-22-2022 Hemoglobin (Bld) [Mass/Vol] 13.7 g/dL 12.0-15.0 [facility] Blood lymphocytes/100 leukoc ytesOrdered By: Dr. Randle on 05-22-2022 Lymphocytes/100 WBC (Bld) 21.8 % 19-41 [facility] Blood monocytes/100 leukocyt esOrdered By: Dr. Randle on 05-22-2022 Monocytes/100 WBC (Bld) 6.9 % 0-10 [facility] Blood platelet mean volumeOr dered By: Dr. Randle on 05-22-2022 Platelet mean volume (Bld) [Entitic vol] 11.2 fL 6.2-12.0 [facility] Determination of erythrocyte mean corpuscular volume (MCV)Ordered By: Dr. Randle on 05-22-2022 MCV (RBC) [Entitic vol] 91.1 fL 81-99 [facility] Hematocrit Auto (Bld) [Volum e fraction]Ordered By: Dr. Randle on 05-22-2022 Hematocrit (Bld) [Volume fraction] 42.2 % 37-47 [facility] Laboratory - Chemistry and C hemistry - challengeOrdered By: Dr. Randle on 05-22-2022 ALP [Catalytic activity/Vol] 69 U/L 45-117 [facility] ALT [Catalytic activity/Vol] 24 U/L 13-56 [facility] CO2 [Moles/Vol] 26.0 mmol/L 21.0-32.0 [facility] Globulin (S) [Mass/Vol] 3.7 g/dL 2.2-4.2 [facility] Urea nitrogen/Creatinine [Mass ratio] 17.6 mg/mg 10-20 [facility] Laboratory - Hematology and Cell countsOrdered By: Dr. Randle on 05-22-2022 Erythrocyte distribution width (RBC) [Entitic vol] 45.3 fL 35.1-43.9 [facility] Erythrocyte distribution width (RBC) [Ratio] 13.5 % 11.6-14.6 [facility] Immature granulocytes/100 WBC (Bld) 0.100 % 0.0-0.9 [facility] Comment on above: IG% - Immature Granu locytes (promyelocytes, myelocytes and metamyelocytes) > 1% indicates that a LEFT SHIFT is Present. MCH (RBC) [Entitic mass] 29.6 pg 27.0-32.0 [facility] Nucleated RBC/100 WBC (Bld) [Ratio] 0 % 0-5 [facility] MCHC Auto (RBC) [Mass/Vol]Or dered By: Dr. Randle on 05-22-2022 MCHC (RBC) [Mass/Vol] 32.5 g/dL 32-36 [facility] No Panel InformationOrdered By: Dr. Randle on 05-22-2022 Estimated GFR (MDRD) Amer 67 mL/min >60 [facility] Comment on above: GFR Calc Estimated GFR (MDRD) Non-Af Amer 56 mL/min >60 [facility] Comment on above: Non- GFR Calc Platelets bldOrdered By: Dr. Randle on 05-22-2022 Platelets (Bld) [#/Vol] 271 10*3/uL 150-450 [facility] Serum or plasma albumin mariely urement (mass/volume)Ordered By: Dr. Randle on 05-22-2022 Albumin [Mass/Vol] 3.6 g/dL 3.2-5.0 [facility] Serum or plasma albumin/glob ulin mass ratioOrdered By: Dr. Randle on 05-22-2022 Albumin/Globulin [Mass ratio] 1.0 {ratio} 0.9-2.4 [facility] Serum or plasma calcium mariely urement (mass/volume)Ordered By: Dr. Randle on 05-22-2022 Calcium [Mass/Vol] 9.7 mg/dL 8.5-10.1 [facility] Serum or plasma creatinine m easurement (mass/volume)Ordered By: Dr. Randle on 05-22-2022 Creatinine [Mass/Vol] 1.02 mg/dL 0.55-1.02 [facility] Comment on above: The validity of the calculated GFR & GFRAA in patients over 70 years has not been determined. Clinical correlation is essential. Serum or plasma urea nitroge n measurement (mass/volume)Ordered By: Dr. Randle on 05-22-2022 Urea nitrogen [Mass/Vol] 18 mg/dL 7-18 [facility] Thin prep Papanicolaou smear with manual screeningOrdered By: Dr. Randle on 05-22-2022 Thin prep Papanicolaou smear with manual screening 20 U/L 15-37 [facility] Thin prep Papanicolaou smear with manual screening 8 5-15 [facility] Basophil percentageOrdered B y: Dr. Ochoa on 03-23-2022 Creatinine [Mass/Vol] 0.9 mg/dL 0.55-1.02 [facility] No Panel InformationOrdered By: Dr. Ochoa on 03-23-2022 Bedside Estimated GFR (eGFR) > 60.0000 mL/min >60 [facility] Absolute lymphocyte counton 10-24-2021 Lymphocytes Auto (Unsp spec) [#/Vol] 1.56 10*3/uL 0.83-4.51 [facility] Work Phone: [phone] Basophil percentageon 2021 Basophils/100 WBC (Bld) 0.7 % 0-1 [facility] Work Phone: [phone] Bilirubin [Mass/Vol] 0.90 mg/dL 0.20-1.00 [facility] Work Phone: [phone] Comment on above: For patients on eltr ombopag therapy, use of [place] TBIL is not recommended. Chloride [Moles/Vol] 105 mmol/L 98-107 [facility] Work Phone: [phone] Cholesterol [Mass/Vol] 201 mg/dL <200 [facility] Work Phone: [phone] Comment on above: <200 mg/dL Desirable 200-240 mg/dL Borderline >240 mg/dL High Risk Eosinophils/100 WBC (Bld) 1.0 % 0-5 [facility] Work Phone: Glucose [Mass/Vol] 76 mg/dL 74-106 [facility] Work Phone: Neutrophils (Bld) [#/Vol] 3.9 10*3/uL 2.0-7.7 [facility] Work Phone: Neutrophils/100 WBC (Bld) 64.1 % 47-70 [facility] Work Phone: Potassium [Moles/Vol] 3.7 mmol/L 3.5-5.1 [facility] Work Phone: Protein [Mass/Vol] 7.5 g/dL 6.4-8.2 [facility] Work Phone: Sodium [Moles/Vol] 141 mmol/L 136-145 [facility] Work Phone: Triglyceride [Mass/Vol] 159 mg/dL <199 [facility] Work Phone: [phone] Comment on above: The drugs N-Acetylcy steine and Metamizole may falsely depress this assay.Serum Triglycerides Reference Interval Normal <150 mg/dL Borderline high 150 - 199 mg/dL High 200 - 499 mg/dL Very High > or = 500 mg/dL WBC (Bld) [#/Vol] 6.0 10*3/uL 4.4-11.0 [facility] Work Phone: Blood erythrocytes count (nu mber/volume)on 10-24-2021 RBC (Bld) [#/Vol] 4.86 10*6/uL 4.2-5.4 [facility] Work Phone: Blood hemoglobin measurement (mass/volume)on 10-24-2021 Hemoglobin (Bld) [Mass/Vol] 14.1 g/dL 12.0-15.0 [facility] Work Phone: Blood lymphocytes/100 leukoc yteson 10-24-2021 Lymphocytes/100 WBC (Bld) 25.8 % 19-41 [facility] Work Phone: Blood monocytes/100 leukocyt eson 10-24-2021 Monocytes/100 WBC (Bld) 8.1 % 0-10 [facility] Work Phone: Blood platelet mean volumeon 10-24-2021 Platelet mean volume (Bld) [Entitic vol] 12.5 fL 6.2-12.0 [facility] Work Phone: [phone] Determination of erythrocyte mean corpuscular volume (MCV)on 10-24-2021 MCV (RBC) [Entitic vol] 90.3 fL 81-99 [facility] Work Phone: [phone] Hematocrit Auto (Bld) [Volum e fraction]on 10-24-2021 Hematocrit (Bld) [Volume fraction] 43.9 % 37-47 [facility] Work Phone: [phone] Laboratory - Chemistry and C hemistry - challengeon 10-24-2021 ALP [Catalytic activity/Vol] 54 U/L 45-117 [facility] Work Phone: ALT [Catalytic activity/Vol] 17 U/L 13-56 [facility] Work Phone: CO2 [Moles/Vol] 28.0 mmol/L 21.0-32.0 [facility] Work Phone: Globulin (S) [Mass/Vol] 3.4 g/dL 2.2-4.2 [facility] Work Phone: Urea nitrogen/Creatinine [Mass ratio] 18.6 mg/mg 10-20 [facility] Work Phone: Laboratory - Hematology and Cell countson 10-24-2021 Erythrocyte distribution width (RBC) [Entitic vol] 44.8 fL 35.1-43.9 [facility] Work Phone: Erythrocyte distribution width (RBC) [Ratio] 13.6 % 11.6-14.6 [facility] Work Phone: Immature granulocytes/100 WBC (Bld) 0.300 % 0.0-0.9 [facility] Work Phone: Comment on above: IG% - Immature Granu locytes (promyelocytes, myelocytes and metamyelocytes) > 1% indicates that a LEFT SHIFT is Present. MCH (RBC) [Entitic mass] 29.0 pg 27.0-32.0 [facility] Work Phone: Nucleated RBC/100 WBC (Bld) [Ratio] 0 % 0-5 [facility] Work Phone: MCHC Auto (RBC) [Mass/Vol]on 10-24-2021 MCHC (RBC) [Mass/Vol] 32.1 g/dL 32-36 [facility] Work Phone: No Panel Informationon 10-24 Estimated GFR (MDRD) Amer 60 mL/min >60 [facility] Work Phone: Comment on above: GFR Calc Estimated GFR (MDRD) Non-Af Amer 50 mL/min >60 [facility] Work Phone: Comment on above: Non- GFR Calc Platelets bldon 10-24-2021 Platelets (Bld) [#/Vol] 235 10*3/uL 150-450 [facility] Work Phone: Serum or plasma albumin mariely urement (mass/volume)on 10-24-2021 Albumin [Mass/Vol] 4.1 g/dL 3.2-5.0 [facility] Work Phone: Serum or plasma albumin/glob ulin mass ratioon 10-24-2021 Albumin/Globulin [Mass ratio] 1.2 {ratio} 0.9-2.4 [facility] Work Phone: Serum or plasma calcium mariely urement (mass/volume)on 10-24-2021 Calcium [Mass/Vol] 9.6 mg/dL 8.5-10.1 [facility] Work Phone: Serum or plasma cholesterol in HDL measurement (mass/volume)on 10-24-2021 Cholesterol in HDL [Mass/Vol] 70 mg/dL >40 [facility] Work Phone: Comment on above: The drugs N-Acetylcy steine and Metamizole may falsely depress this assay. Reference Range HDL <40 mg/dL Low HDL Cholesterol HDL >or= 60 mg/dL High HDL Cholesterol Serum or plasma cholesterol in VLDL measurement (mass/volume)on 10-24-2021 Cholesterol in VLDL [Mass/Vol] 32 mg/dL 5-40 [facility] Work Phone: Serum or plasma creatinine m easurement (mass/volume)on 10-24-2021 Creatinine [Mass/Vol] 1.13 mg/dL 0.55-1.02 [facility] Work Phone: Comment on above: The validity of the calculated GFR & GFRAA in patients over 70 years has not been determined. Clinical correlation is essential. Serum or plasma low density lipoprotein (LDL) cholesterol measurement (mass/volume)on 10-24-2021 Cholesterol in LDL [Mass/Vol] 99 mg/dL 0-130 [facility] Work Phone: Serum or plasma urea nitroge n measurement (mass/volume)on 10-24-2021 Urea nitrogen [Mass/Vol] 21 mg/dL 7-18 [facility] Work Phone: Thin prep Papanicolaou smear with manual screeningon 10-24-2021 Thin prep Papanicolaou smear with manual screening 17 U/L 15-37 [facility] Work Phone: Thin prep Papanicolaou smear with manual screening 8 5-15 [facility] Work Phone: [phone] Absolute lymphocyte counton 07-06-2021 Lymphocytes Auto (Unsp spec) [#/Vol] 1.44 10*3/uL 0.83-4.51 [facility] Work Phone: [phone] Basophil percentageon 2021 Basophils/100 WBC (Bld) 0.7 % 0-1 [facility] Work Phone: [phone] Bilirubin [Mass/Vol] 0.80 mg/dL 0.20-1.00 [facility] Work Phone: [phone] Comment on above: For patients on eltr ombopag therapy, use of [place] TBIL is not recommended. Chloride [Moles/Vol] 108 mmol/L 98-107 [facility] Work Phone: Eosinophils/100 WBC (Bld) 1.3 % 0-5 [facility] Work Phone: [phone] Glucose [Mass/Vol] 111 mg/dL 74-106 [facility] Work Phone: [phone] Comment on above: Fasting Glucose resu lt from 100 to 125 mg/dL suggests IMPAIRED HOMEOSTASIS per A.D.A. criteria. Neutrophils (Bld) [#/Vol] 4.0 10*3/uL 2.0-7.7 [facility] Work Phone: [phone] Neutrophils/100 WBC (Bld) 66.7 % 47-70 [facility] Work Phone: [phone] Potassium [Moles/Vol] 4.1 mmol/L 3.5-5.1 [facility] Work Phone: [phone] Protein [Mass/Vol] 7.4 g/dL 6.4-8.2 [facility] Work Phone: [phone] Sodium [Moles/Vol] 141 mmol/L 136-145 [facility] Work Phone: WBC (Bld) [#/Vol] 6.0 10*3/uL 4.4-11.0 [facility] Work Phone: Blood erythrocytes count (nu mber/volume)on 07-06-2021 RBC (Bld) [#/Vol] 4.98 10*6/uL 4.2-5.[address] [facility] [facility] Work Phone: Blood hemoglobin measurement (mass/volume)on 07-06-2021 Hemoglobin (Bld) [Mass/Vol] 14.6 g/dL 12.0-15.0 [facility] Work Phone: Blood lymphocytes/100 leukoc yteson 07-06-2021 Lymphocytes/100 WBC (Bld) 23.9 % 19-41 [facility] Work Phone: Blood monocytes/100 leukocyt eson 07-06-2021 Monocytes/100 WBC (Bld) 7.1 % 0-10 [facility] Work Phone: Blood platelet mean volumeon 07-06-2021 Platelet mean volume (Bld) [Entitic vol] 11.4 fL 6.2-12.0 [facility] Work Phone: [phone] Determination of erythrocyte mean corpuscular volume (MCV)on 07-06-2021 MCV (RBC) [Entitic vol] 89.0 fL 81-99 [facility] Work Phone: Hematocrit Auto (Bld) [Volum e fraction]on 07-06-2021 Hematocrit (Bld) [Volume fraction] 44.3 % 37-47 [facility] Work Phone: [phone] Laboratory - Chemistry and C hemistry - challengeon 07-06-2021 ALP [Catalytic activity/Vol] 66 U/L 45-117 [facility] Work Phone: ALT [Catalytic activity/Vol] 24 U/L 13-56 [facility] Work Phone: CO2 [Moles/Vol] 28.0 mmol/L 21.0-32.0 [facility] Work Phone: Globulin (S) [Mass/Vol] 3.5 g/dL 2.2-4.2 [facility] Work Phone: Urea nitrogen/Creatinine [Mass ratio] 16.3 mg/mg 10-20 [facility] Work Phone: Laboratory - Hematology and Cell countson 07-06-2021 Erythrocyte distribution width (RBC) [Entitic vol] 42.3 fL 35.1-43.9 [facility] Work Phone: Erythrocyte distribution width (RBC) [Ratio] 13.0 % 11.6-14.6 [facility] Work Phone: Immature granulocytes/100 WBC (Bld) 0.300 % 0.0-0.9 [facility] Work Phone: Comment on above: IG% - Immature Granu locytes (promyelocytes, myelocytes and metamyelocytes) > 1% indicates that a LEFT SHIFT is Present. MCH (RBC) [Entitic mass] 29.3 pg 27.0-32.0 [facility] Work Phone: Nucleated RBC/100 WBC (Bld) [Ratio] 0 % 0-5 [facility] Work Phone: MCHC Auto (RBC) [Mass/Vol]on 07-06-2021 MCHC (RBC) [Mass/Vol] 33.0 g/dL 32-36 [facility] Work Phone: No Panel Informationon 07-06 Estimated GFR (MDRD) Amer 66 mL/min >60 [facility] Work Phone: Comment on above: GFR Calc Estimated GFR (MDRD) Non-Af Amer 55 mL/min >60 [facility] Work Phone: Comment on above: Non- GFR Calc Platelets bldon 07-06-2021 Platelets (Bld) [#/Vol] 213 10*3/uL 150-450 [facility] Work Phone: Serum or plasma albumin mariely urement (mass/volume)on 07-06-2021 Albumin [Mass/Vol] 3.9 g/dL 3.2-5.0 [facility] Work Phone: Serum or plasma albumin/glob ulin mass ratioon 07-06-2021 Albumin/Globulin [Mass ratio] 1.1 {ratio} 0.9-2.4 [facility] Work Phone: Serum or plasma calcium mariely urement (mass/volume)on 07-06-2021 Calcium [Mass/Vol] 9.4 mg/dL 8.5-10.1 [facility] Work Phone: Serum or plasma creatinine m easurement (mass/volume)on 07-06-2021 Creatinine [Mass/Vol] 1.04 mg/dL 0.55-1.02 [facility] Work Phone: Comment on above: The validity of the calculated GFR & GFRAA in patients over 70 years has not been determined. Clinical correlation is essential. Serum or plasma urea nitroge n measurement (mass/volume)on 07-06-2021 Urea nitrogen [Mass/Vol] 17 mg/dL 7-18 [facility] Work Phone: Thin prep Papanicolaou smear with manual screeningon 07-06-2021 Thin prep Papanicolaou smear with manual screening 22 U/L 15-37 [facility] Work Phone: Thin prep Papanicolaou smear with manual screening 5 5-15 [facility] Work Phone: Absolute lymphocyte counton 04-07-2021 Lymphocytes Auto (Unsp spec) [#/Vol] 1.42 10*3/uL 0.83-4.51 [facility] Work Phone: Basophil percentageon 2020 Bilirubin [Mass/Vol] 0.80 mg/dL 0.20-1.00 [facility] Work Phone: Comment on above: For patients on eltr ombopag therapy, use of [place] TBIL is not recommended. Chloride [Moles/Vol] 105 mmol/L 98-107 [facility] Phone: Eosinophils/100 WBC (Bld) 0.8 % 0-5 [facility] Work Phone: Glucose [Mass/Vol] 98 mg/dL 74-106 [facility] Work Phone: Comment on above: Please note revised GLUCOSE reference range effective 2017. Neutrophils (Bld) [#/Vol] 4.0 10*3/uL 2.0-7.7 [facility] Work Phone: Potassium [Moles/Vol] 3.7 mmol/L 3.5-5.1 [facility] Work Phone: Protein [Mass/Vol] 7.7 g/dL 6.4-8.2 [facility] Work Phone: Sodium [Moles/Vol] 140 mmol/L 136-145 [facility] Work Phone: WBC (Bld) [#/Vol] 6.1 10*3/uL 4.4-11.0 [facility] Work Phone: Blood erythrocytes count (nu mber/volume)on 04-07-2021 RBC (Bld) [#/Vol] 5.20 10*6/uL 4.2-5.4 [facility] Work Phone: Blood hemoglobin measurement (mass/volume)on 04-07-2021 Hemoglobin (Bld) [Mass/Vol] 15.1 g/dL 12.0-15.0 [facility] Work Phone: Blood lymphocytes/100 leukoc yteson 04-07-2021 Lymphocytes/100 WBC (Bld) 23.2 % 19-41 [facility] Work Phone: Blood monocytes/100 leukocyt eson 04-07-2021 Monocytes/100 WBC (Bld) 9.6 % 0-10 [facility] Work Phone: Blood platelet mean volumeon 04-07-2021 Platelet mean volume (Bld) [Entitic vol] 12.8 fL 6.2-12.0 [facility] Work Phone: [phone] Determination of erythrocyte mean corpuscular volume (MCV)on 04-07-2021 MCV (RBC) [Entitic vol] 90.8 fL 81-99 [facility] Work Phone: Hematocrit Auto (Bld) [Volum e fraction]on 04-07-2021 Hematocrit (Bld) [Volume fraction] 47.2 % 37-47 [facility] Work Phone: [phone] Laboratory - Chemistry and C hemistry - challengeon 04-07-2021 ALP [Catalytic activity/Vol] 75 U/L 45-117 [facility] Work Phone: ALT [Catalytic activity/Vol] 36 U/L 13-56 [facility] Work Phone: CO2 [Moles/Vol] 26.0 mmol/L 21.0-32.0 [facility] Work Phone: [phone] Globulin (S) [Mass/Vol] 3.8 g/dL 2.2-4.2 [facility] Work Phone: Urea nitrogen/Creatinine [Mass ratio] 23.6 mg/mg 10-20 [facility] Work Phone: Laboratory - Hematology and Cell countson 04-07-2021 Basophils/100 WBC (Unsp spec) 0.7 % 0-1 [facility] Work Phone: [phone] Erythrocyte distribution width (RBC) [Entitic vol] 43.9 fL 35.1-43.9 [facility] Work Phone: [phone] Erythrocyte distribution width (RBC) [Ratio] 13.2 % 11.6-14.6 [facility] Work Phone: Immature granulocytes/100 WBC (Bld) 0.300 % 0.0-0.9 [facility] Work Phone: Comment on above: IG% - Immature Granu locytes (promyelocytes, myelocytes and metamyelocytes) > 1% indicates that a LEFT SHIFT is Present. MCH (RBC) [Entitic mass] 29.0 pg 27.0-32.0 [facility] Work Phone: Neutrophils/100 WBC (Bld) 65.4 % 47-70 [facility] Work Phone: Nucleated RBC/100 WBC (Bld) [Ratio] 0 % 0-5 [facility] Work Phone: MCHC Auto (RBC) [Mass/Vol]on 04-07-2021 MCHC (RBC) [Mass/Vol] 32.0 g/dL 32-36 [facility] Work Phone: No Panel Informationon 04-07 Estimated GFR (MDRD) Amer 71 mL/min >60 [facility] Work Phone: Comment on above: GFR Calc Estimated GFR (MDRD) Non-Af Amer 59 mL/min >60 [facility] Work Phone: Comment on above: Non- GFR Calc Platelets bldon 04-07-2021 Platelets (Bld) [#/Vol] 207 10*3/uL 150-450 [facility] Work Phone: Serum or plasma albumin mariely urement (mass/volume)on 04-07-2021 Albumin [Mass/Vol] 3.9 g/dL 3.2-5.0 [facility] Work Phone: Serum or plasma albumin/glob ulin mass ratioon 04-07-2021 Albumin/Globulin [Mass ratio] 1.0 {ratio} 0.9-2.4 [facility] Work Phone: Serum or plasma calcium mariely urement (mass/volume)on 04-07-2021 Calcium [Mass/Vol] 9.7 mg/dL 8.5-10.1 [facility] Work Phone: Serum or plasma creatinine m easurement (mass/volume)on 04-07-2021 Creatinine [Mass/Vol] 0.98 mg/dL 0.55-1.02 [facility] Work Phone: Comment on above: The validity of the calculated GFR & GFRAA in patients over 70 years has not been determined. Clinical correlation is essential. Serum or plasma urea nitroge n measurement (mass/volume)on 04-07-2021 Urea nitrogen [Mass/Vol] 23 mg/dL 7-18 [facility] Work Phone: Thin prep Papanicolaou smear with manual screeningon 04-07-2021 Thin prep Papanicolaou smear with manual screening 25 U/L 15-37 [facility] Work Phone: Thin prep Papanicolaou smear with manual screening 9 5-15 [facility] Work Phone: Vital Signs Date Time Vital Sign Value Performing Clinician Facility 09-18-2024 00:29-0400 Body temperature 98 [degF] Dr. Davey Valente DO Work Phone: [facility] 09-18-2024 00:29-0400 Diastolic blood pressure 79 mm[Hg] Dr. Davey powers DO Work Phone: [facility] 09-18-2024 00:29-0400 Heart rate 89 /min Dr. Davey Valente DO Work Phone: [facility] 09-18-2024 00:29-0400 Respiratory rate 18 /min Dr. Davey Valente DO Work Phone: [facility] 09-18-2024 00:29-0400 SaO2% (BldA) [Mass fraction] 98 % Dr. Davey Valente DO Work Phone: [facility] 09-18-2024 00:29-0400 Systolic blood pressure 140 mm[Hg] Dr. Davey tripp DO Work Phone: [facility] 09-17-2024 21:44-0400 Body height 157.[address] Davey Valente DO Work Phone: [facility] 09-17-2024 21:44-0400 Body mass index (BMI) [Ratio] 28.5 kg/m2 Dr. Davey Valente DO Work Phone: [facility] 09-17-2024 21:44-0400 Body weight 70.[address] Davey Valente DO Work Phone: [facility] 09-05-2024 06:10-0400 Body mass index (BMI) [Ratio] 28 kg/m2 Dr. Davey Valente DO Work Phone: [facility] 09-05-2024 06:10-0400 Body weight 69.[address] Davey Valente DO Work Phone: [facility] 09-05-2024 06:10-0400 Diastolic blood pressure 78 mm[Hg] Dr. Davey powers DO Work Phone: [facility] 09-05-2024 06:10-0400 Heart rate 81 /min Dr. Davey Valente DO Work Phone: [facility] 09-05-2024 06:10-0400 Respiratory rate 18 /min Dr. Davey Valente DO Work Phone: [facility] 09-05-2024 06:10-0400 SaO2% (BldA) [Mass fraction] 95 % Dr. Davey Valente DO Work Phone: [facility] 09-05-2024 06:10-0400 Systolic blood pressure 119 mm[Hg] Dr. Davey tripp DO Work Phone: [facility] 07-16-2024 07:16-0400 Body height 157.[address] Davey Valente DO Work Phone: [facility] 07-16-2024 07:16-0400 Body weight 68.[address] Davey Valente DO Work Phone: [facility] 07-08-2024 00:29-0400 Body weight 68.[address] Davey Valente DO Work Phone: [facility] 06-16-2024 07:20-0400 Body height 157.[address] Davey Valente DO Work Phone: [facility] 06-16-2024 07:20-0400 Body weight 68.[address] Davey Valente DO Work Phone: [facility] 05-19-2024 14:14-0500 Body mass index (BMI) [Ratio] 26.9 kg/m2 Dr. Davey Valente DO Work Phone: [facility] 05-19-2024 14:09-0500 Body weight 66.[address] Davey Valente DO Work Phone: [facility] 05-19-2024 14:05-0500 Diastolic blood pressure 79 mm[Hg] Dr. Davey powers DO Work Phone: [facility] 05-19-2024 14:05-0500 Heart rate 65 /min Dr. Davey Valente DO Work Phone: [facility] 05-19-2024 14:05-0500 SaO2% (BldA) [Mass fraction] 99 % Dr. Davey Valente DO Work Phone: [facility] 05-19-2024 14:05-0500 Systolic blood pressure 144 mm[Hg] Dr. Davey tripp DO Work Phone: [facility] 05-14-2024 15:22-0500 Body mass index (BMI) [Ratio] 26.9 kg/m2 Dr. Davey Valente DO Work Phone: [facility] 05-14-2024 15:22-0500 Body weight 66.[address] Davey Valente DO Work Phone: [facility] 05-14-2024 15:22-0500 Diastolic blood pressure 79 mm[Hg] Dr. Davey powers DO Work Phone: [facility] 05-14-2024 15:22-0500 Heart rate 65 /min Dr. Davey Valente DO Work Phone: [facility] 05-14-2024 15:22-0500 Respiratory rate 18 /min Dr. Davey Valente DO Work Phone: [facility] 05-14-2024 15:22-0500 SaO2% (BldA) [Mass fraction] 99 % Dr. Davey Valente DO Work Phone: [facility] 05-14-2024 15:22-0500 Systolic blood pressure 144 mm[Hg] Dr. Davey tripp DO Work Phone: [facility] 04-10-2024 13:45-0500 Body mass index (BMI) [Ratio] 27.1 kg/m2 Dr. Davey Valente DO Work Phone: [facility] 04-10-2024 13:45-0500 Body weight 67.[address] Davey Valente DO Work Phone: [facility] 04-10-2024 13:45-0500 Diastolic blood pressure 75 mm[Hg] Dr. Davey powers DO Work Phone: [facility] 04-10-2024 13:45-0500 Heart rate 73 /min Dr. Davey Valente DO Work Phone: [facility] 04-10-2024 13:45-0500 Respiratory rate 18 /min Dr. Davey Valente DO Work Phone: [facility] 04-10-2024 13:45-0500 SaO2% (BldA) [Mass fraction] 98 % Dr. Davey Valente DO Work Phone: [facility] 04-10-2024 13:45-0500 Systolic blood pressure 114 mm[Hg] Dr. Davey tripp DO Work Phone: [facility] 03-25-2024 09:34-0500 SaO2% (BldA) [Mass fraction] 99 % NA CONCHITA [facility] Comment on above: Order Comment: Specimen Type: ARTERIAL B LOOD SPECIMENOrdering Facility: [facility] Address: [address] [place] [address] Performed By: #### A LLBG ####[facility] LABCLIA [id number] [place] [id number] [facility] 03-25-2024 07:51-0500 SaO2% (BldA) [Mass fraction] 99 % NA CONCHITA [facility] Comment on above: Order Comment: Specimen Type: ARTERIAL B LOOD SPECIMENOrdering Facility: [facility] Address: [address] [place], [place] [id number] Performed By: #### A LLBG ####[facility] LABCLIA [id number] [address] [place] 03-25-2024 03:18-0500 SaO2% (BldA) [Mass fraction] 99 % NA CONCHITA [facility] Comment on above: Order Comment: Specimen Type: ARTERIAL B LOOD SPECIMENOrdering Facility: [facility] Address: [address] [place] [address] Performed By: #### A LLBG ####[facility] LABIA [id number] [place] [id number] [place] 03-24-2024 23:51-0500 SaO2% (BldA) [Mass fraction] 100 % NA CONCHITA [facility] Comment on above: Order Comment: Specimen Type: ARTERIAL B LOOD SPECIMENOrdering Facility: [facility] Address: [address] [place] [address] Performed By: #### A LLBG ####[facility] LABCLIA [id number] [place] [id number] [place] 03-24-2024 21:15-0500 SaO2% (BldA) [Mass fraction] 100 % NA CONCHITA [facility] Comment on above: Order Comment: Specimen Type: ARTERIAL B LOOD SPECIMENOrdering Facility: [facility] Address: [address] [place] [address] Performed By: #### A LLBG ####[facility] LABCLIA [id number] [place] [id number] [place] 03-24-2024 19:54-0500 SaO2% (BldA) [Mass fraction] 100 % NA CONCHITA [facility] Comment on above: Order Comment: Specimen Type: ARTERIAL B LOOD SPECIMENOrdering Facility: [facility] Address: [address] [place] [address] Performed By: #### A LLBG ####[facility] LABIA [id number] [place] [id number] [place] 03-24-2024 17:25-0500 SaO2% (BldA) [Mass fraction] 99 % NA CONCHITA [facility] Comment on above: Order Comment: Specimen Type: ARTERIAL B LOOD SPECIMENOrdering Facility: [facility] Address: [address] [place] [address] Performed By: #### A LLBG ####[facility] [id number] [place] [id number] [place] 03-24-2024 16:41-0500 SaO2% (BldA) [Mass fraction] 100 % NA CONCHITA [facility] Comment on above: Order Comment: Specimen Type: ARTERIAL B LOOD SPECIMENOrdering Facility: [facility] Address: [address] [place] [address] Performed By: #### A LLBG ####[facility] OHIO[facility] [id number] [place] [id number] [place] 03-24-2024 15:28-0500 SaO2% (BldA) [Mass fraction] 99 % NA CONCHITA [facility] Comment on above: Order Comment: Specimen Type: ARTERIAL B LOOD SPECIMENOrdering Facility: [facility] Address: [address] [place] [address] Performed By: #### A LLBG ####[facility] [id number] [address] [address] [place] [facility] 03-24-2024 14:27-0500 SaO2% (BldA) [Mass fraction] 99 % NA CONCHITA [facility] Comment on above: Order Comment: Specimen Type: ARTERIAL B LOOD SPECIMENOrdering Facility: [facility] Address: [address] [place], [place] [id number] Performed By: #### A LLBG ####[facility] LABCLIA [id number] [place] [id number] [place] 03-24-2024 13:35-0500 SaO2% (BldA) [Mass fraction] 100 % NA CONCHITA [facility] Comment on above: Order Comment: Specimen Type: ARTERIAL B LOOD SPECIMENOrdering Facility: [facility] Address: [address] [place] [address] Performed By: #### A LLBG ####[facility] LABIA [id number] [place] [id number] [facility] [place] 03-24-2024 12:48-0500 SaO2% (BldA) [Mass fraction] 99 % NA CONCHITA [facility] Comment on above: Order Comment: Specimen Type: ARTERIAL B LOOD SPECIMENOrdering Facility: [facility] Address: [address] [place], [place] [address] Performed By: #### A LLBG ####[facility] LABIA [id number] [place] [id number] [place] 03-24-2024 12:18-0500 SaO2% (BldA) [Mass fraction] 100 % NA CONCHITA [facility] Comment on above: Order Comment: Specimen Type: ARTERIAL B LOOD SPECIMENOrdering Facility: [facility] Address: [address] [place] [address] Performed By: #### A LLBG ####[facility] LABIA [id number] [place] [id number] [place] 03-24-2024 11:29-0500 SaO2% (BldA) [Mass fraction] 100 % NA RELLINOV [facility] Comment on above: Order Comment: Specimen Type: ARTERIAL B LOOD SPECIMENOrdering Facility: [facility] Address: [address] [place] [address] Performed By: #### A LLBG ####[facility] LABCLIA [id number] [place] [id number] [facility] 03-24-2024 10:48-0500 SaO2% (BldA) [Mass fraction] 100 % NA VALDOV [facility] Comment on above: Order Comment: Specimen Type: ARTERIAL B LOOD SPECIMENOrdering Facility: [facility] Address: [address] [place] [address] Performed By: #### A LLBG ####[facility] LABCLIA [id number] [address] 03-24-2024 07:59-0500 SaO2% (BldA) [Mass fraction] 99 % NA CONCHITA [facility] Comment on above: Order Comment: Specimen Type: ARTERIAL B LOOD SPECIMENOrdering Facility: [facility] Address: [address] [place] [address] Performed By: #### A LLMG ####[facility] LABCLIA [id number] [place] [id number] [facility] 03-03-2024 10:47-0500 Diastolic blood pressure 70 mm[Hg] Herlinda Nesbitt MD Work Phone: [facility] 03-03-2024 10:47-0500 Systolic blood pressure 159 mm[Hg] Herlinda Nesbitt MD Work Phone: [facility] 03-03-2024 10:44-0500 Body height 157.5 cm Herlinda Nesbitt MD Work Phone: [facility] 03-03-2024 10:44-0500 Body mass index (BMI) [Ratio] 28.35 kg/m2 Herlinda Nesbitt MD Work Phone: [facility] [facility] 03-03-2024 10:44-0500 Body weight 70.31 kg Herlinda Nesbitt MD Work Phone: [facility] 03-03-2024 10:44-0500 Heart rate 75 /min Herlinda Nesbitt MD Work Phone: [facility] 03-03-2024 10:44-0500 Respiratory rate 16 /min Herlinda Nesbitt MD Work Phone: [facility] 03-03-2024 10:44-0500 SaO2% (BldA) [Mass fraction] 97 % Herlinda Nesbitt MD Work Phone: [facility] 01-31-2024 15:59-0400 Body height 157.5 cm Jeremias Tanner MD Work Phone: [facility] Comment on above: patient reports 01-31-2024 15:59-0400 Body mass index (BMI) [Ratio] 29.37 kg/m2 Jeremias Tanner MD Work Phone: [facility] 01-31-2024 15:59-0400 Body weight 72.85 kg Jeremias Tanner MD Work Phone: [facility] Comment on above: fully clothed with shoes on 01-31-2024 15:59-0400 Diastolic blood pressure 80 mm[Hg] Jeremias Tanner MD Work Phone: [facility] 01-31-2024 15:59-0400 Heart rate 81 /min Jeremias Tanner MD Work Phone: [facility] 01-31-2024 15:59-0400 SaO2% (BldA) [Mass fraction] 97 % Jeremias Tanner MD Work Phone: [facility] 01-31-2024 15:59-0400 Systolic blood pressure 120 mm[Hg] Jeremias Huang Work Phone: [facility] 08-03-2022 15:45-0400 Body height 157.[address] Davey Valente Work Phone: [facility] 08-03-2022 15:45-0400 Body mass index (BMI) [Ratio] 30 kg/m2 Dr. Davey Valente Work Phone: [facility] 08-03-2022 15:45-0400 Body weight 74.[address] Davey Valente Work Phone: [facility] 08-03-2022 15:45-0400 Diastolic blood pressure 90 mm[Hg] Dr. Davey powers Work Phone: [facility] 08-03-2022 15:45-0400 Systolic blood pressure 127 mm[Hg] Dr. Davey tripp Work Phone: [facility] 01-05-2022 10:23-0400 Body height 157.[address] Davey Valente Work Phone: [facility] Work Phone: 01-05-2022 10:15-0400 Body mass index (BMI) [Ratio] 29.8 kg/m2 Dr. Davey Valente Work Phone: [facility] Work Phone: 01-05-2022 10:15-0400 Body weight 73.[address] Davey Valente Work Phone: [facility] Work Phone: 01-05-2022 10:15-0400 Diastolic blood pressure 83 mm[Hg] Dr. Davey powers Work Phone: [facility] Work Phone: 01-05-2022 10:15-0400 Systolic blood pressure 137 mm[Hg] Dr. Davey tripp Work Phone: [facility] Work Phone: Encounters Encounter Date Encounter Type Care Provider Facility Start: 09-25-2024 End: 09-25-2024 ambulatory Tang Rousseau RN Cardiothoracic Start: 09-25-2024 End: 09-25-[address] Mike Resendez MD -Radiology [place] Work Phone: Start: 09-25-2024 End: 09-25-2024 ambulatory Davey [facility] Facility:[facility] Start: 09-17-2024 End: 09-18-2024 Emergency department patient visit Dr. Davey Valente DO Work Phone: -Emergency Department Work Phone: Start: 09-05-2024 ambulatory Davey Ambrosio Facility: [facility] Start: 09-05-2024 Registered Referred Soraya CLAYTON -Cardiovascular Services Work Phone: Start: 09-05-2024 End: 09-05-2024 Patient encounter procedure Soraya CLAYTON -[facility] Work Phone: Start: 09-05-2024 End: 09-05-[address] Davey Valente DO Work Phone: [facility] Work Phone: Start: 08-29-2024 End: 08-29-[address] Davey Valente DO Work Phone: [facility] Work Phone: Start: 08-29-2024 End: 08-29-[address] Shyla Randle MD -Laboratory [place] Work Phone: Start: 08-29-2024 End: 08-29-2024 ambulatory Davey Ambrosio Facility:[facility] Start: 08-17-2024 ambulatory Kenny Alejandro Facility:[facility] Start: 08-05-2024 End: 08-05-[address] Davey Valente DO Work Phone: [facility] Work Phone: Start: 08-05-2024 End: 08-05-[address] Shyla Randle MD -Laboratory, [place] Work Phone: Start: 08-05-2024 End: 08-05-2024 ambulatory [facility] Facility:[facility] Start: 07-30-2024 End: 08-06-2024 ambulatory Kenny Alejandro Facility:[facility] Start: 07-30-2024 End: 08-06-[address] Kenny Alejandro MD -Cardiac Rehab Work Phone: Start: 07-09-[address] Kenny Alejandro MD -Cardiac Rehab Work Phone: Start: 07-07-2024 End: 07-07-[address] Davey Valente DO Work Phone: [facility] Work Phone: Start: 07-07-2024 End: 07-07-[address] Kenny Alejandro MD -Cardiac Rehab Work Phone: Start: 07-04-2024 Non-patient / Non-visit Dr. Kim MENDOZA -[facility] Start: 07-04-2024 End: 07-04-[address] Davey Valente DO Work Phone: [facility] Work Phone: Start: 07-04-2024 End: 07-04-2024 Patient encounter procedure Soraya Mark RI -Cardiovascular Services Work Phone: Start: 07-04-2024 End: 07-04-2024 ambulatory [facility] Facility:[facility] Start: 06-27-2024 End: 06-27-2024 ambulatory Erica Min RN [facility] Start: 06-27-2024 End: 06-27-2024 Patient encounter procedure Erica Min RN [facility] Start: 06-20-[address] Kenny Alejandro MD -Cardiac Rehab Work Phone: Start: 06-09-2024 End: 06-09-[address] Davey Valente DO Work Phone: [facility] Work Phone: Start: 06-09-2024 End: 06-09-2024 Patient encounter procedure Soraya Mark PA -Laboratory Work Phone: Start: 06-09-2024 End: 06-09-2024 ambulatory Davey Valente Facility:[facility] Start: 06-06-2024 End: 06-06-2024 ambulatory Kenny Alejandro Facility:[facility] Start: 06-06-2024 End: 06-06-[address] Kenny Alejandro MD -Cardiac Rehab Work Phone: Start: 05-19-2024 End: 05-19-[address] Kenny Alejandro MD -Cardiac Rehab Work Phone: Start: 05-19-2024 End: 05-19-2024 ambulatory [facility] Facility:[facility] Start: 05-14-2024 End: 05-14-2024 Patient encounter procedure Soraya Mark PA -[facility] Work Phone: Start: 05-14-2024 End: 05-14-2024 ambulatory Davey [facility] Facility:[facility] Start: 04-30-2024 End: 04-30-2024 ambulatory [facility] Start: 04-30-2024 End: 04-30-2024 Patient encounter procedure Rachael Mccrary [facility] Start: 04-30-2024 End: 04-30-2024 ambulatory Davey [facility] Facility:[facility] Start: 04-10-2024 End: 04-10-2024 ambulatory [facility] Facility:[facility] Start: 04-10-2024 End: 04-10-2024 Patient encounter procedure Soraya CLAYTON -[facility] Work Phone: Start: 04-10-2024 End: 04-10-2024 ambulatory Davey [facility] Facility:[facility] Start: 03-31-2024 End: 03-31-2024 Orders Only Esme Arango MD Work Phone: Cardiothoracic Comment on above: Surgery follow-up (P rimary Dx); Chest pain, unspecified type Start: 03-27-2024 ambulatory Davey Valente Facility: [facility] Start: 03-24-2024 Encounter for preprocedural cardiovascular examination Esme ARANGO [facility] Start: 03-24-2024 End: 03-31-2024 Evaluation and management of inpatient Esme ARANGO Facility:[facility] Start: 03-20-2024 End: 03-20-2024 ambulatory Sonya High RN [facility] Start: 03-20-2024 End: 03-20-2024 Patient encounter procedure Sonya High RN [facility] Start: 03-04-2024 End: 03-04-2024 Admission to same day surgery center Anesthesia Clearance Work Phone: [facility] Work Phone: Start: 03-04-2024 End: 03-04-2024 Patient encounter status WAGNER Arango MD Work Phone: [facility] Start: 03-04-2024 End: 03-04-2024 ambulatory Esme Arango MD Work Phone: Cardiothoracic Comment on above: Patient Education Start: 03-04-2024 End: 03-04-2024 Patient encounter procedure Esme Arango MD Work Phone: Cardiothoracic Comment on above: Nonrheumatic mitral valve regurgitation (Primary Dx) Pre-op testing (Prim andi Dx) Encounter for preope rative anesthesiology assessment for cardiac surgery (Primary Dx) Start: 03-03-2024 End: 03-03-2024 ambulatory Esme ARANGO Facility:[facility] Start: 03-03-2024 End: 03-03-2024 Patient encounter procedure Rain Marrufo DDS Work Phone: Dentistry Comment on above: Preoperative clearan ce (Primary Dx); Mitral valve disorder Start: 03-03-2024 End: 03-03-2024 Preoperative state Rain Marrufo DDS Work Phone: [facility] Work Phone: Start: 03-03-2024 Encounter for preprocedural cardiovascular examination HERLINDA NESBITT [facility] Start: 03-03-2024 End: 03-03-2024 ambulatory HERLINDA NESBITT Facility:[facility] Start: 03-03-2024 End: 03-03-2024 Patient encounter procedure Herlinda Nesbitt MD Work Phone: Cardiology Comment on above: Preop cardiovascular exam (Primary Dx); Essential hypertension, benign; Severe mitral regurgitation; Mitral valve prolapse Start: 03-03-2024 End: 03-03-2024 Patient encounter status Herlinda Nesbitt MD Work Phone: [facility] Start: 03-03-2024 End: 03-03-2024 Subsequent hospital visit by physician Xr Chest Main J1 Work Phone: Radiology Comment on above: Pre-operative cardio vascular examination [Z01.810] Start: 03-03-2024 End: 03-03-2024 ambulatory Esme ARANGO Facility:[facility] Start: 02-27-2024 End: 02-27-2024 Telephone encounter Lionel Singleton DMD Work Phone: Dentistry Comment on above: Appointment Start: 02-25-2024 End: 02-25-2024 Patient entered into trial Research Nurse Work Phone: [facility] Start: 02-25-2024 End: 02-25-2024 Telephone encounter Research Nurse Work Phone: Cardiothoracic Comment on above: Informed Consent Start: 02-20-2024 End: 02-26-2024 Patient encounter status Esme Arango MD Work Phone: [facility] Start: 02-20-2024 End: 02-26-2024 Telephone encounter Esme Arango MD Work Phone: Cardiothoracic Comment on above: Insurance Inquiry Referral Information ; Pre-Op CTHO Consult; Cardiac Preop Checklist Start: 02-11-2024 End: 02-11-2024 Telephone encounter Lena Jensen APRN.CNP Work Phone: [facility] Start: 02-11-2024 End: 02-11-2024 ambulatory [facility] Facility:[facility] Start: 02-06-2024 End: 02-06-2024 ambulatory [facility] Facility:[facility] Start: 02-04-2024 End: 02-04-2024 Telephone encounter Jeremias [...] encounter status Jeremias Tanner MD Work Phone: [facility] Start: 01-31-2024 End: 01-31-2024 ambulatory JEREMIAS ATNNER Facility:[facility] Start: 01-31-2024 Encounter for other preprocedural examination JEREMIAS TANNER [facility] Start: 01-28-2024 End: 01-28-2024 ambulatory [facility] Facility:[facility] Start: 01-18-2024 End: 01-18-2024 Telephone encounter Jeremias Tanner MD Work Phone: [facility] Start: 01-17-2024 End: 01-17-2024 ambulatory [facility] Facility:[facility] Start: 01-09-2024 End: 01-09-2024 ambulatory [facility] Facility:[facility] Start: 01-07-2024 ambulatory [facility] Facility: [facility] Start: 01-07-2024 End: 01-07-2024 ambulatory [facility] Facility:[facility] Start: 01-04-2024 End: 01-04-2024 ambulatory [facility] Facility:[facility] Start: 01-02-2024 End: 01-02-2024 ambulatory Davey Valenet Facility:[facility] Start: 12-26-2023 ambulatory Davey Valente Facility: [facility] Start: 12-26-2023 End: 12-26-2023 ambulatory Davey Valente Facility:[facility] Start: 12-17-2023 End: 12-17-2023 ambulatory Araceliwalt LaboyZev Facility:[facility] Start: 05-17-2023 End: 05-17-2023 ambulatory [facility] Work Phone: Start: 05-17-2023 End: 05-17-2023 Patient encounter procedure [facility] Work Phone: Start: 11-14-2022 End: 11-14-[address] Davey Valente Work Phone: [facility] Work Phone: Start: 11-14-2022 End: 11-14-[address] Davey Valente Work Phone: [facility] Work Phone: Start: 11-06-2022 End: 11-06-[address] Davey Valente Work Phone: [facility] Work Phone: Start: 11-06-2022 End: 11-06-[address] Davey Valente Work Phone: [facility]-Outpatient Breast Imaging Work Phone: Start: 10-04-2022 End: 10-04-[address] Davey Valente Work Phone: [facility] Work Phone: Start: 08-31-2022 End: 08-31-[address] Davey Valente Work Phone: [facility] Work Phone: Start: 08-03-2022 End: 08-03-[address] Davey Valente Work Phone: [facility] Work Phone: Start: 07-20-2022 End: 07-20-[address] Davey Valente Work Phone: [facility] Work Phone: Start: 05-22-2022 End: 05-22-[address] Davey Valente Work Phone: [facility] Work Phone: Start: 05-22-2022 End: 05-22-[address] Davey Valente Work Phone: [facility] Start: 04-05-2022 End: 04-05-[address] Davey Valente Work Phone: [facility] Start: 03-23-2022 End: 03-23-[address] Davey Valente Work Phone: [facility] Work Phone: Start: 03-23-2022 End: 03-23-[address] Davey Valente Work Phone: [facility] Start: 02-28-2022 End: 02-28-[address] Davey Valente Work Phone: [facility] Start: 02-23-2022 End: 02-23-[address] Davey Valente Work Phone: [facility] Work Phone: Start: 02-23-2022 End: 02-23-[address] Davey Valente Work Phone: [facility] Start: 01-05-2022 End: 01-05-[address] Davey Valente Work Phone: [facility] Start: 11-03-2021 End: 11-03-2021 Patient encounter procedure [facility]-Outpatient Bone Densitometry Start: 10-24-2021 End: 10-24-2021 Patient encounter procedure [facility]-Laboratory, [place] Start: 07-06-2021 End: 07-06-2021 Patient encounter procedure [facility]-Laboratory Start: 04-14-2021 End: 04-14-2021 Patient encounter procedure [facility]-Cat Scan, [facility] Start: 04-07-2021 Patient encounter procedure [facility]-Laboratory, [place] Start: 03-24-2021 Patient encounter procedure [facility]-Ultrasound, [facility] Start: 08-26-2020 ambulatory CLAUDIA [facility] Ambulatory Procedures Date Procedure Procedure Detail Performing Clinician Start: 09-25-2024 X-ray of thoracic sp ine, four or more views Dr[address] Davey Valente DO Work Phone: Start: 09-17-2024 Plain chest X-ray Dr. Pro Valente DO Work Phone: Start: 09-17-[address] Davey Valente DO Work Phone: Start: 05-14-2024 Evaluation of diagno stic study [...] DO Work Phone: Start: 03-03-2024 Antibody screen NA ZACARIAS INOV Comment on above: Order Comment: Speci men Type: BLOOD SPECIMENOrdering Facility: [facility] Address: [address] [place] [address] Performed By: #### T [id number] ####CC MAIN BLOOD BANKCLIA [id number] [address] [place] Start: 03-03-2024 Radiologic exam ches t 2 views A Mickey Arnago MD Work Phone: Start: 03-03-2024 Echocardiography NA [...] Author Start: 03-30-2027 Diabetes Screening Diabetes Screening [facility] Start: 03-03-2027 Diabetes Screening Diabetes Screening [facility] Start: 12-08-2024 Influenza vaccination Influenza Vaccine (Season Ended) [facility] Start: 09-18-2024 [facility] Start: 09-17-2024 End: 09-17-2024 [facility] Start: 09-05-2024 Evaluation of diagnostic study results [facility] Start: 05-19-2024 Patient referral [facility] Work Phone: Start: 05-13-2024 End: 05-13-2024 Patient encounter procedure 05/13/2024 11:00 AM EST Office Visit Cardiology [address] [id number] Herlinda Nesbitt MD [address] [place] [address] OPEN HEART Cardiology Comment on above: OPEN HEART Start: 04-09-2024 Advance Directive Discussion Advance Directive Discussion [facility] Start: 04-08-2024 End: 04-08-2024 Follow-up encounter 04/08/2024 2:45 PM EST Results Only Cardiology [address] [id number] Surgery follow-up Cardiology Comment on above: Surgery follow-up Start: 04-08-2024 End: 04-08-2024 ambulatory 04/08/2024 2:30 PM EST Results Only [facility] [place] [facility] [address] [id number] CBC CMP Main [place] [facility] Comment on above: CBC CMP Start: 04-08-2024 End: 04-08-2024 Patient encounter procedure Radiology Comment on above: Surgery follow-up Hospital Discharge J 6 Start: 03-31-2024 End: 06-30-2024 CBC panel - Blood by Automated count COMPLETE BLOOD COUNT Lab Routine Chest pain, unspecified type Expected: 03/31/2024, Expires: 06/30/2024 [facility] Work Phone: Comment on above: Expected: 03/31/2024, Expires: Start: 03-31-2024 End: 06-30-2024 Comprehensive metabolic 2000 panel - Serum or Plasma COMPREHENSIVE METABOLIC PANEL Lab Routine Surgery follow-up Expected: 03/31/2024, Expires: 06/30/2024 [facility] Comment on above: Expected: 03/31/2024, Expires: Start: 03-24-2024 End: 03-24-2024 Admission to same day surgery center 03/24/2024 7:00 AM EST - 03/24/2024 12:16 PM EST Surgery Admitting [address] [place] [address] Esme Arango MD [address] [place], [place] [id number] MVr Sternotomy (2) Admitting Comment on above: MVr Sternotomy (2) Start: 03-24-2024 Subsequent hospital visit by physician 03/24/2024 7:00 AM EST Hospital Encounter Admitting [address] [place] [address] Esme Arango MD [address] [place] [address] Pre-operative cardiovascular examination [Z01.810], 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] Admitting Comment on above: Pre-operative cardiovascular examination [Z01.810], 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] Start: 03-24-2024 End: 03-24-2024 Vlvp mitral valve w/card byp w/prostc ring VALVULOPLASTY MITRAL W/ RING AND BYPASS Pre-operative cardiovascular examination Mitral valve disorder 03/24/2024 7:00 AM EST [facility] Start: 03-11-2024 Covid-19 Vaccine ( season) Covid-19 Vaccine () [facility] Start: 03-04-2024 End: 03-04-2024 Patient encounter procedure [...] valve disorder Expected: 02/26/2024 (Approximate), Expires: 05/27/2024 [facility] Comment on above: Expected: 02/26/2024 (Approximate), Expi res: 05/27/2024 Start: 02-26-2024 End: 05-27-2024 CBC W Auto Differential panel - Blood COMPLETE BLOOD COUNT AND DIFFERENTIAL Lab Routine Pre-operative cardiovascular examination Mitral valve disorder Expected: 02/26/2024, Expires: 05/27/2024 [facility] Comment on above: Expected: 02/26/2024, Expires: Start: 02-26-2024 End: 05-27-2024 Comprehensive metabolic 2000 panel - Serum or Plasma COMPREHENSIVE METABOLIC PANEL Lab Routine Pre-operative cardiovascular examination Mitral valve disorder Expected: 02/26/2024, Expires: 05/27/2024 [facility] Work Phone: Comment on above: Expected: 02/26/2024, Expires: Start: 02-26-2024 End: 05-27-2024 CONFIRM BLOOD TYPE CONFIRM BLOOD TYPE Blood Bank Routine Pre-operative cardiovascular examination Mitral valve disorder Expected: 02/26/2024, Expires: 05/27/2024 [facility] Comment on above: Expected: 02/26/2024, Expires: Start: 02-26-2024 End: 05-27-2024 Lactate dehydrogenase [Enzymatic activity/volume] in Serum or Plasma LACTATE DEHYDROGENASE Lab Routine Pre-operative cardiovascular examination Mitral valve disorder Expected: 02/26/2024, Expires: 05/27/2024 [facility] Comment on above: Expected: 02/26/2024, Expires: Start: 02-26-2024 End: 05-27-2024 PT panel - Platelet poor plasma by Coagulation assay PROTHROMBIN TIME Lab Routine Pre-operative cardiovascular examination Mitral valve disorder Expected: 02/26/2024 (Approximate), Expires: 05/27/2024 [facility] Comment on above: Expected: 02/26/2024 (Approximate), Expi res: 05/27/2024 Start: 02-26-2024 End: 05-27-2024 TYPE AND SCREEN,30 DAY TYPE AND SCREEN,30 DAY Blood Bank Routine Pre-operative cardiovascular examination Mitral valve disorder Expected: 02/26/2024, Expires: 05/27/2024 [facility] Comment on above: Expected: 02/26/2024, Expires: Start: 02-26-2024 End: 05-27-2024 URINALYSIS, DIPSTICK ONLY URINALYSIS, DIPSTICK ONLY Lab Routine Pre-operative cardiovascular examination Mitral valve disorder Expected: 02/26/2024, Expires: 05/27/2024 [facility] Comment on above: Expected: 02/26/2024, Expires: Start: 12-09-2023 Covid-19 Vaccine () Covid-19 Vaccine () [facility] Start: 12-09-2023 Influenza vaccination Influenza Vaccine (#1) [facility] Start: 04-09-2023 Advance Directive Discussion Advance Directive Discussion [facility] Start: 04-05-2022 Patient referral [facility] Work Phone: Start: 12-20-2018 RSV Vaccine (1 - 1-dose 75+ series) RSV Vaccine (1 - 1-dose 75+ series) [facility] Start: 05-14-2011 Diabetes Screening Diabetes Screening [facility] Start: 12-20-2008 Pneumococcal Vaccine: 65+ (1 of 1 - PCV) Pneumococcal Vaccine: 65+ (1 of 1 - PCV) [facility] Start: 12-08-2008 Medicare Annual Wellness Visit Medicare Annual Wellness Visit [facility] Start: 04-10-1999 Urine microalbumin profile DTaP,Tdap,Td Vaccine (1 - Tdap) [facility] Start: 12-20-1993 Shingrix Vaccine (1 of 2) Shingrix Vaccine (1 of 2) [facility] Start: 12-20-1961 Annual PCP Team Chronic Disease Visit Annual PCP Team Chronic Disease Visit [facility] Start: 12-20-1961 Anxiety Screening Anxiety Screening [facility] Start: 12-20-1961 BP Controlled (<130/80) BP Controlled (<130/80) [facility] Start: 12-20-1961 Depression Screening Depression Screening [facility] End: 03-01-2025 CT Chest WO contrast CT CHEST WO IVCON Radiology Routine Syncope, unspecified syncope type Pre-op testing Mitral valve prolapse 1 Occurrences starting 01/31/2024 until 03/01/2025 [facility] Work Phone: Comment on above: 1 Occurrences starting 01/31/2024 until 03/01/2025 End: 02-25-2025 ECG COMPLETE ECG COMPLETE ECG Routine Pre-operative cardiovascular examination Mitral valve disorder 1 Occurrences starting 02/26/2024 until 02/25/2025 [facility] Comment on above: 1 Occurrences starting 02/26/2024 until 02/25/2025 End: 03-31-2025 ECG COMPLETE ECG COMPLETE ECG Routine Surgery follow-up 1 Occurrences starting 03/31/2024 until 03/31/2025 [facility] Comment on above: 1 Occurrences starting 03/31/2024 until 03/31/2025 End: 02-25-2025 Echocardiography ECHO Cardiology Routine Pre-operative cardiovascular examination Mitral valve disorder 1 Occurrences starting 02/26/2024 until 02/25/2025 [facility] Comment on above: 1 Occurrences starting 02/26/2024 until 02/25/2025 MR Lumbar spine WO a nd W contrast IV [facility] Work Phone: Patient Education ED About Arrhy thmias ED Palpitations [facility] Work Phone: Patient referral [facility] Work Phone: End: 03-27-2025 XR Chest PA and Lateral XR CHEST 2V FRONTAL/LAT Radiology Routine Pre-operative cardiovascular examination Mitral valve disorder 1 Occurrences starting 02/26/2024 until 03/27/2025 [facility] Comment on above: 1 Occurrences starting 02/26/2024 until 03/27/2025 End: 04-30-2025 XR Chest PA and Lateral XR CHEST 2V FRONTAL/LAT Radiology Routine Surgery follow-up 1 Occurrences starting 03/31/2024 until 04/30/2025 [facility] Comment on above: 1 Occurrences starting 03/31/2024 until 04/30/2025 Immunizations Immunization Date Immunization Notes Care Provider [facility] 01-31-2023 influenza virus vaccine, unspecified formulation Jeremias Tanner MD Work Phone: [facility] 07-01-2020 Covid (Pfizer) [facility] 06-10-2020 Covid (Pfizer) [facility] 01-21-2020 Influenza virus vaccine [facility] 04-09-1999 tetanus and diphther ia toxoids, adsorbed, preservative free, for adult use (2 Lf of tetanus toxoid and 2 Lf of diphtheria toxoid) Jeremias Tanner MD Work Phone: [facility] Payers Date Payer Category Payer Self-pay [id number] 2016 [facility] ANTHEM ME DICARE SUPPLEMENT Member Subscriber Plan / Payer (Effective 2016-Present) Name: Hilda Mullins Relation to Subscriber: Self Name: Hilda Mullins Esme Payer ID: [id number] (NAIC) Group ID: [id number] Type: Indemnity Address: [address] [place] [id number] 2016 Unknown ANTHEM ANTHEM ME DICARE SUPPLEMENT [id number] 2016-Present [phone] [address] Indemnity [id number] 2010 Unknown [id number] 2008 Medicare [id number] 2008 Medicare [id number] Unknown [id number] 2.16.840.1.316273.3.579. 2.462 Unknown [id number] 2.16.840.1.681917.3.579. 2.462 Unknown [id number] 2.16.840.1.578068.3.579. 2.462 Unknown [id number] 2.16.840.1.286942.3.579. 2.462 Unknown [id number] 2.16.840.1.400387.3.579. 2.462 Unknown [id number] 2.16840.1.300719.3.579. 2.462 Unknown [id number] 2.16.840.1.200598.3.579. 2.462 Unknown [id number] 2.840.1.978460.3.579. 2.462 Unknown [id number] 2.840.1.949250.3.579. 2.462 Unknown [id number] 2.840.1.653219.3.579. 2.462 Unknown [id number] 2.840.1.251689.3.579. 2.462 Unknown [id number] 2.840.1.042642.3.579. 2.462 Unknown [id number] 2.840.1.939106.3.579. 2.462 Unknown [id number] 2.840.1.441189.3.579. 2.462 Unknown [id number] 2.840.1.209295.3.579. 2.462 Unknown [id number] 2.840.1.172474.3.579. 2.462 Unknown [id number] 2.840.1.352038.3.579. 2.462 Unknown [id number] 2.840.1.450259.3.579. 2.462 Unknown [id number] 2.840.1.223660.3.579. 2.462 Unknown [id number] 2.840.1.053227.3.579. 2.462 Unknown [id number] 2.840.1.478629.3.579. 2.462 Unknown [id number] 2.840.1.635509.3.579. 2.462 Unknown [id number] 2.16.840.1.277469.3.579. 2.462 Unknown [id number] 2.16.840.1.745783.3.579. 2.462 Unknown [id number] 2.16.840.1.124745.3.579. 2.462 Unknown [id number] 2.16.840.1.605929.3.579. 2.462 Unknown [id number] 2.16.840.1.994185.3.579. 2.462 Unknown [id number] 2.16.840.1.245874.3.579. 2.462 Unknown [id number] 2.16.840.1.777237.3.579. 2.462 Unknown [id number] 2.16.840.1.606546.3.579. 2.462 Unknown [id number] 2.16840.1.538040.3.579. 2.462 Unknown [id number] 2.16840.1.808997.3.579. 2.462 Unknown [id number] 2.16840.1.207937.3.579. 2.462 Social History Date Type Detail Facility Start: 09-08-2020 End: 11-22-2022 Tobacco smoking status NEIS Unknown if ever smoked [facility] Start: 06-06-2020 None [facility] Start: 06-06-2020 Spouse/ Signif icant Other [facility] Start: 1945 Sex Assigned At Female [facility] Start: 01-24-2024 End: 09-17-2024 Tobacco smoking status NHIS Never smoked tobacco [facility] Start: 11-23-2021 Alcoholic beverage intake Current drinker of alcohol (finding) [facility] Start: 1945 Sex assigned at Not on file [facility] Start: 01-31-2024 End: 03-26-2024 Gender identity Not on file [facility] Start: 01-24-2024 Tobacco use and exposure Smokeless tobacco non-user [facility] Start: 01-31-2024 End: 03-24-2024 Alcoholic beverage intake Ex-drinker (finding) [facility] Start: 01-31-2024 End: 03-26-2024 History of Social function [facility] National Score (1-10 0), lower number is lower risk 66 [facility] Has the electric, eMagin s, oil, or water company threatened to shut off services in your home in past 12Mo No [facility] (I/We) worried wheth er (my/our) food would run out before (I/we) got money to buy more. Never true [facility] Start: 06-20-2024 End: 07-10-2024 Sex Female (finding) [facility] Medical Equipment Procedure Code Equipment Code Equipment Original Text Equipment Identifier Dates PATCH,AMNION 2X3CM FDA Start: 06-17-2020 PATCH,AMNION 2X3CM FDA Start: 06-17-2020 PATCH,AMNION 2X3CM FDA Start: 06-17-2020 PATCH,AMNION 2X3CM FDA Start: 06-17-2020 PATCH,AMNION 2X3CM FDA Start: 06-17-2020 PATCH,AMNION 2X3CM FDA Start: 06-17-2020 PATCH,AMNION 2X3CM FDA Start: 06-17-2020 PATCH,AMNION 2X3CM FDA Start: 06-17-2020 Wilton Thk1.65mm P tfe 4x.5in Cardiovascular Sterile - [id number] Start: 03-24-2024 Band Mitchell Ancor e 31mm 77mm Annuloplasty Chordal Guide - [id number] Start: 03-24-2024 PATCH,AMNION 2X3CM FDA Start: 06-17-2020 CLIP,HEMOLOCK MED WECK FDA St art: 01-28-2024 Extra-gynaecolog ical surgical mesh, composite-polymer ([id number] FDA Start: 01-28-2024 PATCH,AMNION 2X3CM FDA [...] 03/31/2024 3:48 PM Tisha Cat RN No [facility] 03-31-2024 Are you blind, or do you have serious difficulty seeing, even when wearing glasses No 03/31/2024 3:48 PM Tisha Cat RN No [facility] 03-31-2024 Do you have serious difficulty walking or climbing stairs No 03/31/2024 3:48 PM Tisha Cat RN No [facility] 03-31-2024 Do you have difficul ty dressing or bathing No 03/31/2024 3:48 PM Tisha Cat RN No [facility] 03-31-2024 Because of a physica l, mental, or emotional condition, do you have difficulty doing errands alone such as visiting a physician's office or shopping No 03/31/2024 3:48 PM Tisha Cat RN No [facility] Mental Status Date Assessment Result Facility 03-31-2024 Because of a physica l, mental, or emotional condition, do you have serious difficulty concentrating, remembering, or making decisions No 03/31/2024 3:48 PM Tisha Cat RN No [facility] Clinical Notes 01-18-2024 to 09-26-2024 Tang Rousseau RN - 09/25/2024 2:24 PM EDT Note Date & Type Note Facility 09-26-2024 Radiology Diagnostic study note [facility] Imaging Services [place], [place] [address] Thoracic Spine Min 4 Views MR#: [id number] Acct: [id number] Name: HILDA MULLINS Rep #: [id number] : 1945 F 78 From: Jaquelin Clarke MD PCP: Dr. Davey Valente DO Status: REG CLI Study:Thoracic Spine Min 4 Views Date of Exam : 09/25/24 Exam# [id number] Ordering Dr: Mike Resendez MD PROCEDURE: THORACIC SPINE MIN 4 VIEWS 09/25/2024 REASON FOR EXAM: DEGENERATION OF THORACIC TECHNIQUE: THORACIC SPINE MIN 4 VIEWS COMPARISON: 12/17/2023. FINDINGS: Mild osteopenia. Mild S shaped scoliosis. Spinal stimulator device is noted with its tip at T8-T9. There are diffuse spondylotic changes. Findings are demonstrated to by diffuse disc space narrowing, osteophyte formation and degenerative endplate sclerosis. There is diffuse facet joint arthropathy with secondary bilateral neural foramina narrowing. No fracture or dislocation is seen. No aggressive lytic or blastic bony lesion is noted. RAD/Thoracic Spine Min 4 Views IMPRESSION: No evidence for acute abnormality. Mild osteopenia. Mild S shaped scoliosis. Spinal stimulator device is noted with its tip at T8-T9. Reading Location[facility] [place] [address] CC: Dr. Mike Resendez MD; Dr. Davey Valente DO ~ Science Interpreter: Signed [facility] 09-25-2024 Note [facility] 09-25-2024 History of Present illness Narrative QOL Call Tracking Documentation Follow-Up Type: Phone Call Call Attempt: 1st Attempt Call Status: Patient will complete in MyChart documented in this encounter [facility] 09-18-2024 Discharge summary [facility] 09-17-2024 Radiology Diagnostic study note [facility] Imaging Services [address] [place] [address] Chest 1 View (Portable) MR#: [id number] Acct: [id number] Name: HILDA MULLINS Rep #: [id number] : 1945 F 78 From: Giancarlo Dubose MD PCP: Dr. Davey Valente, Status: REG ER Study:Chest 1 View (Portable) Date of Exam: 09/17/24 Exam# [id number] Ordering Dr: Obi Rodgers MD PROCEDURE: CHEST 1 VIEW (PORTABLE) 09/17/2024 REASON FOR EXAM: SHORTNESS OF BREATH TECHNIQUE: Frontal view of the chest. COMPARISON: 04/12/2024. FINDINGS: Prior sternotomy. Spinal stimulator is present. The heart is normal in size. The lungs are clear. No acute osseous abnormalities. RAD/Chest 1 View (Portable) IMPRESSION: No Acute Findings. Reading Location: [id number] CC: Dr. Obi Rodgers MD; Dr. Davey Valente DO ~ Science Interpreter: Signed [facility] 09-17-2024 Discharge summary Note Date/Time September 18, 2024 12:15am [facility] Medical Records Department [address] [facility] [place] [address] Emergency Department Summary 09/17/24 MR#: [id number] Acct: [id number] Name: HILDA MULLINS Rep #:[id number] : 1945 78 From: Obi Rodgers MD PCP: Dr. Davey Valente, Status:REG ER Location: ED HPI History of Present Illness Chief Complaint: Shortness of Breath Narrative Narrative: 78-year-old female past medical history of mitral valve repair proximately 6 months ago, presents today with shortness of breath that she has had intermittently over the last few weeks. She and her family state that she has been having episodes of atrial fibrillation after her surgery. She was sent home on amiodarone and metoprolol. About a week ago, her account receivable clerk Dr. Nguyentopped the metoprolol. She states that she can feel her heart skipping a beat and she is short of breath. No recent fevers or chills, no cough, no leg swelling. She states that she was concerned that she was in atrial fibrillation. She currently does not take a blood thinner such as Xarelto or Eliquis but does take aspirin. [facility] Medical History Postoperative atrial fibrillation Wears hearing [...] Cardiac murmur Syncope and collapse Hypertension Arthritis Home Medications ?Medication ?Instructions ?Recorded ?Last Taken ?Type pantoprazole 20 mg tablet,delayed 20 mg PO DAILY 01/0501/27/24 History release (Protonix) aspirin 81 mg tablet,delayed 81 mg PO QDAY 04/10/24 Un known History release (Adult Low Dose Aspirin) cholecalciferol (vitamin D3) 25 25 mcg PO QDAY 5 Unknown History mcg (1,000 unit) capsule glucosam 750 mg-chondroi 100 1 tab PO DAILY 05/14/24 U nknown History mg-hyalur 1.65 mg-CF borate 108 mg tablet (Move [facility]) Allergy/AdvReac Type Severity Reaction Status Date / Time oxycodone Allergy Severe Nausea Verified 09/17/24 21:44 omeprazole Allergy Intermediate Vomiting Verified 09/17/24 21:44 Sulfa (Sulfonamide Allergy Mild Itching Verified 09/17/24 21:44 Antibiotics) codeine Allergy Vomiting Verified 09/17/24 21:44 methylprednisolone (From AdvReac Severe Itching Verified 09/17/24 21:44 Medrol) Family History Aunt Breast cancer Mother Pancreatic cancer Brother Pancreatic cancer Cancer of blood vessel Surgical History S/P mitral valve repair S/P inguinal hernia repair History of cardiac catheterization Hx of right cataract extraction Hx of left cataract extraction History of esophagogastroduodenoscopy (EGD) Hx of colonoscopy History of back surgery Hx of cholecystectomy Total knee replacement status History of hysterectomy History of kidney surgery Social History Smoking Status: Never smoker alcohol intake: never substance use type: does not use what type of physical activity do you participate in: walking seatbelt use: always do you feel safe at home: Yes additional social history: patient is retired from [employer] after 41 years [employer]- works at [employer] ROS ED ROS Narrative Review of systems positive for heart palpitations and shortness of breath. No fevers or chills, no nausea or vomiting, no leg swelling. Denies other symptoms. No true exacerbating or alleviating factors. EXAM Physical Exam Narrative Exam Narrative: Afebrile. Vital signs noted. Nontoxic-appearing. Cardiovascular examination reveals a regular rate but irregular rhythm. Lungs are clear to auscultation bilaterally. Abdomen is soft and nontender with normal active bowel sounds. Noguarding or rebound. Neurological examination nonfocal, nonlateralizing. No noted pedal edema. Const Vital Signs: 09/17/24 21:44 09/17/24 21:48 09/17/24 22:16 Temperature 97.3 F L Temperature Source Temporal Pulse Rate 97 Respiratory Rate 18 Respiratory Effort Blood Pressure 166/88 H Blood Pressure Mean 114 Pulse Ox 97 97 Oxygen Delivery Method Room Air Room Air 09/17/24 22:19 09/17/24 23:45 Temperature Temperature Source Pulse Rate 86 Respiratory Rate 18 Respiratory Effort Normal Blood Pressure 137/65 H Blood Pressure Mean 89 Pulse Ox 97 Oxygen Delivery Method Room Air MDM MDM MDM Narrative Medical decision making narrative: Differential diagnosis includes but not limited to atrial fibrillation versus pneumonia versus pneumothorax versus subjective shortness of breath. EKG was obtained and interpreted by myself independently as normal sinus rhythm at 90 bpm with frequent premature supraventricular complexes and frequent PVCs. I reviewed her laboratory work that was entered per protocol and WBC count 10.0 with hemoglobin 12.2, hematocrit 38.8, platelet count 272. I reviewed her BMP and creatinine slightly elevated at 1.35 which I think is nonspecific with BUN of 23, glucose of 106 and normal anion gap of 12. Initial high-sensitivity troponin is 10 with 2-hour being 10. I do not feel she needs a 4-hour troponin as her troponins are flat. Chest x-ray in 1 view interpreted by myself independently shows no evidence of pneumonia or pneumothorax. I reviewed the radiology report which confirms my independent interpretation. Upon repeat examination, her heart rate on the monitor appears regular without PVCs with a rate control in the 80s. She and her family state that she is no longer taking metoprolol or amiodarone. I do not feel she requires observation or admission. She was told that she is not in atrial fibrillation currently, and that she should follow-up with her account receivable clerk and see if they want to restart her on metoprolol for her palpitations. Return instructions to the emergency department were reviewed. Disposition is discharged in stable condition. History & Record Review Discussion w/independent historian: Patient and Family Lab Data Attestation: I reviewed the patient's lab results. Labs: Laboratory Results - last 24 hr 09/17/24 09/17/24 22:04 23:40 WBC 10.0 RBC 4.41 Hgb 12.2 Hct 38.8 MCV 88.0 MCH 27.7 MCHC 31.4 L RDW Std Deviation 50.9 H RDW Coeff of Yousuf 15.7 H Plt Count 272 MPV 11.8 Immature Gran % (Auto) 0.200 Neut % (Auto) 70.4 H Lymph % (Auto) 19.8 Scre[place] % (Auto) 7.7 Eos % (Auto) 1.4 Baso % (Auto) 0.5 Absolute Neuts (auto) 7.1 Absolute Lymphs (auto) 1.99 Nucleated RBC % 0 Sodium 140 Potassium 3.9 Chloride 104 Carbon Dioxide 23.6 Anion Gap 12 BUN 23 H Creatinine 1.35 H Estim Creat Clear Calc 30.59 L Est GFR (MDRD) Non-Af 40 L BUN/Creatinine Ratio 16.8 Glucose 106 H Calcium 9.6 Troponin T High Sens 10 Troponin T Hi Sens 2 Hr 10 Radiography Chest X-Ray - ED: 1 View, Read by ED Physician and Read by Radiologist Diagnostic Testing: Clinical Impression(s) from Imaging Studies Chest X-Ray 09/17/24 22:37 IMPRESSION: No Acute Findings. Reading Location: [id number] Discharge Plan Triage Chief Complaint: Shortness of Breath ED Provider: Obi Rodgers Dx/Rx/DC Orders Clinical Impression: Palpitations, PVCs (premature ventricular contractions), Premature contractions, supraventricular, S/P mitral valve repair Instructions: ED About Arrhythmias, ED Palpitations Prescriptions: No Action pantoprazole [Protonix] 20 mg tablet,delayed release (DR/EC) 20 mg PO DAILY aspirin [Adult Low Dose Aspirin] 81 mg tablet,delayed release (DR/EC) 81 mg PO QDAY cholecalciferol (vitamin D3) 25 mcg (1,000 unit) capsule 25 mcg PO QDAY [employer] 750 mg-100 mg- 1.65 mg-108 mg tablet 1 tab PO DAILY Primary Care Provider: Davey Valente Referrals: Kenny Alejandro MD [Med Staff - Active Staff] - 1 Day Davey Valente DO [Primary Care Provider] - Activity Restrictions/Additional Instructions: Return with increased palpitations and elevated heart rate, new or worsening symptoms. 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 See if they want to restart you onmetoprolol. Print Language: Tuvaluan Disposition Disposition: Home, Self Care What to do if you have Problems For any increased pain, shortness of breath, bleeding, nausea or vomiting, chestpain, or any unexpected problems, contact your Primary Care Provider. Call [facility] ([phone]) or report to the closest Emergency Room. Call 911 if necessary. 09/18/245 <Electronically signed by Obi Rodgers MD> Cosigner Signature (if applicable): CC: Dr. Davey Valente DO ~ Signed [facility] Work Phone: 1(293) 599-196005-30-2025 Evaluation note* Diagnosis Onset Date Resolution Status Admit Date Postoperative atrial fibrillation ac [place] September 05, 2024 7:54am S/P mitral valve repair acute M 2024 7:54am Hypertension chronic September 05 7:54am [facility] Work Phone: 1(745) 736-609603-21-2025 [facility] History of Present illness Narrative* Erica Min RN - 06/27/2024 12:15 PM EDT QOL Call Tracking Documentation Follow-Up Type: Phone Call Call Attempt: 1st Attempt Call Status: Patient will complete in [employer] documented [facility] Evaluation note* Diagnosis Onset Date Resolution Status Admit Date Postoperative atrial fibrillation acute May 14 3:19pm S/P mitral valve repair acute F eb2024 3:19pm Hypertension chronic May 3:19pm [facility] Work Phone: 1(768) 338-983102-05-2025 Evaluation note* Diagnosis Onset Date Resolution Status Admit Date Postoperative atrial fibrillation acute May 14 3:19pm S/P mitral valve repair acute F eb2024 3:19pm Hypertension chronic May 3:19pm Postoperative atrial fibrillation acute September 05, 2024 7 :54am S/P mitral valve repair acute M 2024 7:54am Hypertension chronic September 05 7:54am [facility] Work Phone: 1([phone]) 192-9832762656-25-6862 NoteHNO ID: [id number] Author: ?, ?, ? Service: ? Author Type: ? Type: Progress Notes Filed: 04/30/2024 11:29 Note Text: QOL Call Tracking Documentation Follow-Up Type: Phone Call Call Attempt: 1st Attempt Call Status: Patient will complete in [facility] 04-30-2024 History of Present illness Narrative* Rachael Mccrary - 04/30/2024 11:28 AM EST QOL Call Tracking Documentation Follow-Up Type: Phone Call Call Attempt: 1st Attempt Call Status: Patient will complete in [employer] documented in [facility]-2025 Evaluation note* Diagnosis Onset Date Resolution Status Admit Date Postoperative atrial fibrillation acute April 10 1:41pm S/P mitral valve repair acute J anuary 2024 1:41pm Hypertension chronic April 10, 2024 1:41pm Postoperative atrial fibrillation acute May 14 3:19pm S/P mitral valve repair acute F ebru2024 3:19pm Hypertension chronic May 3:19pm [facility] Work Phone: 1(218) 332-896812-23-2024 [facility]12-23-2024 [facility]12-22-2024 [facility] 03-30-2024 [facility]20[facility]12-20-2024 NoteHNO ID: [id number] Author: HANH AVALOS MD Service: Critical Care Author Type: Physician Type: Progress Notes Filed: 03/28/2024 11:07 Note Text: Documentation Query Please specify any diagnosis based on these indicators: ThrombocytopeniaKettering Health [facility]12-20-2024 NoteHNO ID: [id number] Author: HANH AVALOS MD Service: Critical Care Author Type: Physician Type: Progress Notes Filed: 03/28/2024 10:22 Note Text: Documentation Query Please specify any diagnosis based on these clinical indicators: HyponatremiaK[facility]12-20-2024 [facility] 03-27-2024 [facility]12-18-2024 [facility]12-17-2024 [facility]12-16-2024 [facility]12-16-2024 [facility]12-16-2024 Note [facility]12-16-2024 [facility]12[facility]12-2024 [facility]12-12-2024 History of Present illness Narrative* Sonya High RN - 03/20/2024 10:01 AM EST QOL Call Tracking Documentation Follow-Up Type: Phone Call Call Attempt: 1st Attempt Call Status: Patient will complete [facility] documented in this encounterCh[facility]ic[facility]11-26-2024 [facility]11-26-2024 History of Present illness Narrative* Luis [...] and morning of surgery. documented in this encounterChillicothe [facility]11-26-2024 History of Present illness Narrative* Alexx Trimble [...] antibodies identifed COVID-19 Immunization Status Covid-19 Vaccine () Next due on 03/11/2024 01/15/2024 Imm Admin: COVID-19 original vaccine, full dose, monovalent (MODERNA) 02/15/2023 Outside Immunization: COVID-19, mRNA, LNP-S, PF, echo-sucrose, 10 mcg/0.3 mL 04/11/2022 Imm Admin: COVID-19 vaccine, age 12+ yr, bivalent (Genalyte) Only the first 3 history entries have [...] left , numerous surgeries CARDIAC CATH 01/17/2024 [facility] [facility] COLONOSCOPY FLX DX W/COLLJ SPEC WHEN [...] that she vomited; she had back surgery [facility] Steroids [Betametha* Itching Sulfa (Sulfonamide * [...] AM Impression IMPRESSION: No acute radiographic abnormality. Science Interpreter: ALEX Transcribe Date/Time: Mar 03 2024 10:46A [...] and consent discussed: yes. Patient / Responsible Republican agrees to proceed: yes Patient / Surrogate agrees to blood products: Yes Instructions Given to Patient: Instructions located in the after visit summary. Patient given verbal and written preop instructions and voices comprehension and compliance. Signature: Alexx Trimble DO Patient Name: Hilda Mullins Date: March 03, 2024 Time: 2:07 PM Pager/Contact #: documented in this encounterChillicothe [facility]11-26-2024 [facility]-26-2024 NoteK[facility]11-26-2024 History of Present illness Narrative* Luis Eduardo [...] that she vomited; she had back surgery [facility] Steroids [Betametha* Itching Sulfa (Sulfonamide * [...] left , numerous surgeries CARDIAC CATH 01/17/2024 [facility] COLONOSCOPY FLX DX W/COLLJ SPEC WHEN [...] bilateral hearing aides DERM: Denies Dermatological Complaints RELOCATION SERVICES SPECIALIST: Denies Neurological Complaints RESP: virus ~2wks ago [...] Date: 03/03/2024 IMPRESSION: No acute radiographic abnormality. Science Interpreter: ALEX Transcribe Date/Time: Mar 03 2024 10:46A Dictated by : GAUDENCIO DELGADO, DO This examination was interpreted and the report reviewedand electronically signed by: MELIDA MASTERS MD on Mar 03 2024 10:50AM EST EK03/03/24 Dental: Cleared by [facility] ? Recent Labs 03/03/24 1005 WBC [...] and Physical dated 03/03/24 documented in this encounterChillicothe Va [facility] Center11-26-2024 NoteK[facility]11-26-2024 History of Present illness Narrative* Esme Arango MD - 03/04/2024 7:11 AM EST Images from the original note were not included. Heart, Vascular and Thoracic [place] DEPARTMENT OF CARDIAC SURGERY OUTPATIENT VISIT DATE March 04, 2024 OUTPATIENT VISIT SERVICE DATE: 03/04/2024 SERVICE TIME: 7:14 AM PCP: Davey Valente [address] [place] [address] Referring Physician: Kenny Alejandro ([facility]) [address] [place] [address] Patient Type: New Visit to Determine Surgery: [...] record Esme Arango MD documented in this encounterChillicothe Va [facility] Center11-25-2024 NoteK[facility]11-25-2024 History of Present illness Narrative* Rain Marrufo, DDS - 03/03/2024 2:12 PM EST Images from the original note were not included. Head and Neck [place] Dentistry, Oral Surgery, & Maxillofacial Prosthetics CHIEF [...] that she vomited; she had back surgery [facility] Steroids [Betametha* Itching Sulfa (Sulfonamide * [...] Soft Tissues: Clear saliva extruded from bilateral Germaine's and Marlon's ducts. Tongue soft and non-tender [...] record. Rain Marrufo DDS documented in this encounterChillicothe Va Medical Center11-25-2024 History of Present illness Narrative* Herlinda Nesbitt MD - 03/03/2024 9:45 AM EST Images from the original note were not included. Heart and Vascular [place] Will Kyle Department of Cardiovascular Medicine SECTION OF CLINICAL CARDIOLOGY OUTPATIENT VISIT DATE March 03, 2024 OUTPATIENT VISIT TYPE NEW PRIMARY CARE PHYSICIAN: Davey Valente [address] [place] [address] REFERRING PHYSICIAN: Esme Arango [address] [place] [id number] CHIEF COMPLAINT: Preoperative cardiac evaluation. HISTORY OF PRESENT ILLNESS: NURSING INTAKE: Ms. Mullins is a 78 year old female from [place], [place] here today for cardiovascular evaluation. She [...] left , numerous surgeries CARDIAC CATH 01/17/2024 [facility] COLONOSCOPY FLX DX W/COLLJ SPEC WHEN [...] that she vomited; she had back surgery [facility] Steroids [Betametha* Itching Sulfa (Sulfonamide * [...] is a 78 year old female from [place], [place] here today for cardiovascular evaluation. She [...] others. CONTACT INFORMATION: Herlinda Nesbitt M.D, MPH, [facility] and Lauren Kyle Department of Cardiovascular Medicine Heart [facility] Vascular [place] [facility] Desk [place] [address] Office Office Appointments: [phone] documented in this encounterChillicothe Va Medical Center11-25-2024 NoteK[facility]11-25-2024 History of Present illness Narrative* Sonya Apodaca, [...] PATIENT PRESENTS WITH AN IMPLANTABLE OR ATTACHED CLOTH LAYER: No RADIOLOGY DEPARTMENT: General X-ray: Exam(s) Completed: Chest X-Ray PERIPHERAL IV DATA: Not applicable SIGNED BY: RT Nixon(R) March 03, 2024 9:43 AM documented in this encounterChillicothe Va Medical Center11-25-2024 NoteK[facility]11-20-2024 Telephone encounter Note* Telephone Encounter - Haven Gastelum - 02/27/2024 8:44 AM EST Spoke with patient and she does not have dental insurance [facility]11-20-2024 Miscellaneous Notes* Telephone Encounter - Haven Gastelum - 02/27/2024 8:44 AM EST Spoke with patient and she does not have dental insurance documented in this encounterChillicothe Va Medical Center11-19-2024 Telephone encounter Note * Telephone Encounter - Sonya Bryan RN - 02/26/2024 2:36 PM EST OPD 03.03, Conchita Rosas @ 07, [facility] 12.16. Please FedEx the Schedule as patient does not have MyChart capabilities. MVr Sternotomy (2) Discussed with Hilda the details regarding surgery scheduled with Dr. Arango on 03.24. She will see [facility]. Provided instructions for the last dose date of any anti-coagulants, vitamins, supplements, minerals, herbal products, NSAID's should be 12.10. Sonya Bryan RN February 26, 2024 2:40 [...] and general knowledge given to pt n/a [facility]11-19-2024 Miscellaneous Notes* Telephone Encounter - Sonya Brayn RN - 02/26/2024 2:36 PM EST OPD 11., Conchita 11.26 @ 0700, [facility] 03.24. Please FedEx the [...] 02/20/2024 1:59 PM EST Records are in [employer], images are on [employer]. To NPM * Telephone Encounter - Yarelis Hernandez - 02/20/2024 1:39 PM EST Patient was referred to Dr. Arango by Dr. Alejandro for MVR. I have left a VM for the paitent to inform her of the referral and review process. documented in this encounterCleveland [id number] Telephone encounter Note * Telephone Encounter - Sonya Bryan RN - 02/25/2024 10:09 AM EST Surgeon Review Complete. NPM to contact regarding PRIMARY Trial. [facility]11-18-2024 Telephone encounter Note* Telephone Encounter - Juliet [...] Patient has my contact information. Juliet Rahman [facility] [id number] [facility]11-18-2024 Miscellaneous Notes* Telephone Encounter - Juliet Carrera [...] Patient has my contact information. Juliet Rahman [facility] [id number] documented in this encounterChillicothe Va Medical Center11-18-2024 Telephone encounter Note * Telephone Encounter - Sonya Bryan RN - 02/25/2024 7:57 AM EST To AMG for review: moderate-severe MR/MVP- posterior, mild TR, CAD [facility]11-13-2024 Telephone encounter Note* Telephone Encounter - Daxa Birmingham - 02/20/2024 2:14 PM EST IN [facility] Work Phone: [phone] 610-773911-13-2024 Miscellaneous Notes* Telephone Encounter - Daxa Birmingham - 02/20/2024 2:14 PM EST IN * Telephone Encounter - Yarelis Hernandez - 02/20/2024 2:02 PM EST Please register insurance. Thank you documented in this encounterChillicothe Va Medical Center11-13-2024 Telephone encounter Note * Telephone Encounter - Yarelis Hernandez - 02/20/2024 2:02 PM EST Please register insurance. Thank you [facility] Work Phone: [phone] 607-394511-13-2024 Telephone encounter Note* Telephone Encounter - Yarelis Hernandez - 02/20/2024 1:59 PM EST Records are in [facility], images are on [employer]. To NPM [facility] Work Phone: [phone] 726-267611-13-2024 Telephone encounter Note* Telephone Encounter - Yarelis Hernandez - 02/20/2024 1:39 PM EST Patient was referred to Dr. Arango by Dr. Alejandro for MVR. I have left a VM for the paitent to inform her of the referral and review process. [facility]11-04-2024 Telephone encounter Note* Telephone Encounter - Lena Jensen APRN.CNP - 02/11/2024 11:08 AM EST Called pt to invite to open heart education class. She said she is cancelling surgery, does not want to pursue surgery, and did not really expand on why. Notified museum service scheduler. Lena Jensen APRN.CNP [facility] Work Phone: [phone] Miscellaneous Notes* Telephone Encounter - Lena Jensen APRN.CNP - 02/11/2024 11:08 AM EST Called pt to invite to open heart education class. She said she is cancelling surgery, does not want to pursue surgery, and did not really expand on why. Notified museum service scheduler. Lena Jensen APRN.CNP documented in this encounterChillicothe Va Medical Center10-28-2024 Telephone encounter Note * Telephone Encounter - Trev Weber MA - 02/04/2024 11:20 AM EDT Referral to EP Dr. Ramos sent via [employer] Confirmation number: [id number] 02/06/24 CT Chest wo contrast 11:40am @ [facility] [place] Phoned pt to schedule regarding future appt & info regarding EP referral. Ms. Mullins doesn't want to schedule any of the testing or appt to EP. She'll call if she changes hermind. I cancelled testing [facility]10-28-2024 Miscellaneous Notes* Telephone Encounter - Trev Weber MA - 02/04/2024 11:20 AM EDT Referral to EP Dr. Ramos sent via [employer] Confirmation number: [id number] 02/06/24 CT Chest wo contrast 11:40am @ [facility] Phoned pt to schedule regarding future appt & info regarding EP referral. Ms. Mullins doesn't want to schedule any of the testing or appt to EP. She'll call if she changes hermind. I cancelled testing documented in this encounterChillicothe Va Medical Center10-24-2024 NoteHNO ID: [id number] Author: JEREMIAS TANNER MD Service: ? Author [...] normal V function. Transesophageal echo performed at [facility] in December showed 3+ MR with [...] left , numerous surgeries CARDIAC CATH 01/17/2024 [facility] COLONOSCOPY FLX DX W/COLLJ SPEC WHEN [...] that she vomited; she had back surgery [facility] Steroids [Betametha* Itching Sulfa (Sulfonamide * [...] SpO2 97% BMI 29 (more content not included)...[facility]10-24-2024 History of Present illness Narrative* Jeremias Tanner [...] prolapse, normal V function. Transesophagealecho performed at [facility] in December showed 3+ MR with [...] left , numerous surgeries CARDIAC CATH 01/17/2024 [facility] COLONOSCOPY FLX DX W/COLLJ SPEC WHEN [...] that she vomited; she had back surgery [facility] Steroids [Betametha* Itching Sulfa (Sulfonamide * [...] pending. She wishes to pursue surgery at [facility]. @ The risks, benefits, and anticipated outcomes [...] 2024 TIME: 5:03 PM PAGER/CONTACT #: [phone] * Esperanza Gonzalez APRN.CNP - 01/31/2024 3:30 [...] Stay (<6 days)* 25.5% documented in this encounterChillicothe Va Medical Center10-24-2024 Instructions* Patient Instructions* Esperanza Gonzalez APRN.CNP - [...] has been ordered for you. Please call [phone] to schedule Thanks for coming in to see us today. Please call us if you have any concerns/questions: [phone] Esperanza Gonzalez APRN.CNP Cardiothoracic surgery [place] [employer] documented in this encounterChillicothe Va Medical Center10-24-2024 Nurse Note* Tisha Doyle LPN - 01/31/2024 4:07 PM EDT CARDIAC REHAB 5 METER WALK TEST SERVICE DATE: 01/31/2024 SERVICE TIME: 3:59pm (Patient reports slight shortness of breath during her last leg of her 5 Meter Walk Test.) 6.66 sec 6.25 sec 6.52 sec ASSESSMENT: SIGNATURE: Tisha Doyle LPN PATIENT NAME: Hilda Mullins DATE: January 31, 2024 TIME: 4:07 PM PAGER/CONTACT #: [phone] [facility]10-24-2024 Nurse Note* Tisha Doyle LPN - 01/31/2024 4:07 PM EDT CARDIAC REHAB 5 METER WALK TEST SERVICE DATE: 01/31/2024 SERVICE TIME: 3:59pm (Patient reports slight shortness of breath during her last leg of her 5 Meter Walk Test.) 6.66 sec 6.25 sec 6.52 sec ASSESSMENT: SIGNATURE: Tisha oDyle LPN PATIENT NAME: Hilda Mullins DATE: January 31, 2024 TIME: 4:07 PM PAGER/CONTACT #: [phone] documented in this encounterChillicothe Va Medical Center10-24-2024 NoteHNO ID: [id number] Author: ESPERANZA GONZALEZ APRN.YESI Service: ? Author [...] days) 6.39% Short Hospital Stay (<6 days)* 25.5%[facility]10-21-2024 Note [facility] Medical Records Department [address] [place] [address] History Physical Exam 01/28/24 0700 MR#: [id number] Acct: [id number] Name: HILDA MULLINS Rep #: [id number] : 1945 78 From: Timur Simpson MD PCP: Dr. Davey Valente, DO Status:REG [facility] Location: [place] [address] History and Physical Date of Admission: 01/28/24 [...] mg-hyalur 1.65 mg-CF borate 108 mg tablet ([employer]) lisinopril 20 mg tablet 20 mg PO [...] additional social history: patient is retired from [employer] after 41 years [employer]- works at [employer] HPI HPI HPI: Patient is an [...] no additional complaints, exce (more content not included)...[facility]10-11-2024 Telephone encounter Note* Telephone Encounter - Eloisa Mahmood - 01/18/2024 11:51 AM EDT Referral received from [facility] for Dr. Tanner. Fax was sent to [facility] for images. Referral from [facility]/Dr. Alejandro #[phone] - Non-rheumatic mitral prolapse severe and insufficiency [facility]10-11-2024 Miscellaneous Notes* Telephone Encounter - Eloisa Mahmood - 01/18/2024 11:51 AM EDT Referral received from [facility] for Dr. Tanner. Fax was sent to [facility] for images. Referral from [facility]/Dr. Alejandro #[phone] - Non-rheumatic mitral prolapse severe and insufficiency documented in this encounterChillicothe Va Medical CenterChief complaint+Reason for visit Narrative* Chief Complaint SCREENING/OSTEO REFERRAL Rosalina vulvar/vaginal atrophy LUMBER SPINE Reason for Visit Vaginal atrophy Left lumbar radiculopathy [facility] Work Phone: Chief complaint+Reason for visit Narrative* Chief Complaint REFERRAL Wygradyki vul yousuf/vaginal atrophy LUMBER SPINE LUMBAR PAIN lumbar Reason for Visit Vaginal atrophy Left lumbar radiculopathy Left lumbar radiculopathy [facility] Work Phone: Evaluation noteNo assessment information available [facility] Work Phone: Evaluation note* Diagnosis Onset Date Resolution Status Vaginal atrophy acute Left lumbar radiculopathy ac [place] [facility] Work Phone: Evaluation note* Diagnosis Onset Date Resolution Status Vaginal atrophy acute Left lumbar radiculopathy ac [place] Left lumbar radiculopathy ac [facility] Work Phone: Evaluation note* Diagnosis Onset Date Resolution Status Left lumbar radiculopathy ac [place] Left lumbar radiculopathy ac [facility] Work Phone: Evaluation note* Diagnosis Onset Date Resolution Status Facet arthritis of lumbar region acute Lichen sclerosus acute Vaginal atrophy acute 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 [facility] Work Phone: Evaluation note* Diagnosis Onset Date Resolution Status Lichen sclerosus acute Vaginal atrophy acute 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 [facility] Work Phone: Evaluation note* Diagnosis Research subject- Primary documented in this encounter [facility] note* Diagnosis Pre-operative cardiovascular examination- Primary Shortness of breath Mitral valve disorder Mitral valve disorders Pre-operative cardiovascular examination Mitral valve disorder Mitral valve disorders documented in this encounter [facility]* Diagnosis Preoperative clearance- Primary Preoperative examination, unspecified Mitral valve disorder Mitral valve disorders Encounter for preoperative anesthesiology assessment for cardiac surgery- Primary Pre-operative cardiovascular examination Mitral valve disorder Mitral valve disorders documented in this encounter [facility]* Diagnosis Pre-operative cardiovascular examination Mitral valve disorder Mitral valve disorders Encounter for preoperative anesthesiology assessment for cardiac surgery- Primary Pre-operative cardiovascular examination Mitral valve disorder Mitral valve disorders documented in this encounter [facility] note* Diagnosis Nonrheumatic mitral valve regurgitation- Primary Pre-operative cardiovascular examination Mitral valve disorder Mitral valve disorders documented in this encounter [facility]* Diagnosis Preop cardiovascular exam- Primary Pre-operative cardiovascular examination Essential hypertension, benign Severe mitral regurgitation Mitral valve disorders Mitral valve prolapse Mitral valve disorders Pre-operative cardiovascular examination Mitral valve disorder Mitral valve disorders documented in this encounter [facility] note* Diagnosis Pre-op testing- Primary Preoperative examination, unspecified Pre-operative cardiovascular examination Mitral valve disorder Mitral valve disorders documented in this encounter [facility] note* Diagnosis Encounter for preoperative anesthesiology assessment for cardiac surgery- Primary Pre-operative cardiovascular examination Mitral valve disorder Mitral valve disorders documented in this encounter [facility] note* Diagnosis Surgery follow-up- Primary Follow-up examination, following unspecified surgery Chest pain, unspecified type documented in this encounter [facility]* Diagnosis Syncope, unspecified syncope type- Primary Pre-op testing Preoperative examination, unspecified Mitral valve prolapse Mitral valve disorders Nonrheumatic mitral valve regurgitation documented in this encounter [facility] Discharge instructionsAmbulatory Orders* Pain Management Location: None Selected [facility] Work Phone: Hospital Discharge instructions Additional Instructions Return with increased palpitations and elevated heart rate, new or worsening symptoms. 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 See if they want to restart you on metoprolol.[facility] Work Phone: Reason for referral (narrative)* Outpatient Procedure (Routine) - Authorized Specialty Diagnoses / Procedures Referred By Contac t Referred To Contact [facility] Diagnoses Surgery follow-up Procedures ECG COMPLETE ECG ROUTINE ECG W/LEAST 12 LDS W/I&R Esme Arango MD [address] [place] [address] Heart And Vascular [place] [address] [place] [address] Referral ID Status Reason Start Date Expiration Date Visits Requested Visits Authorized [id number] Authorized Auto-Generat ed Referral 4 03/31/2025 1 1 [facility] for referral (narrative)No reason for referral information availableWMercer County [facility] Work Phone: Summary Purpose Family History No Family History [...] Date/ Time Advance Directives Yes June 30, 12:03pm Living Will Yes June 30, 2020 12:03pm Power of Nail Professional Yes June 30 12:03pm Advance Directive Response Recorded Date/ Time Advance Directives Yes June 30, 11:03am Living Will Yes June 30, 2020 11:03am Power of Nail Professional Yes June 30 11:03am Advance Directive Response Recorded Date/ Time Advance Directives on File No Suzanne2024 3:05pm Living Will Yes May 19 025 3:14pm Power of Nail Professional Yes May 19, 2024 3:14pm Advance Directives Yes January 17, 2024 7:22am Advance Directive Response Recorded Date/ Time Advance Directives on File No u 2024 3:05pm Living Will Yes May 19 025 3:14pm Do you have a Healthcare Power of Nail Professional? Yes May 19, 2024 3:14pm Advance Directives Yes January 17, 2024 7:22am Advance Directive Response Recorded Date/ Time Do you have a Healthcare Power of Nail Professional? Yes September 17, 2024 10:15pm Name of Medical Power of Nail Professional dewayne mullins September 17, 2024 10:15pm Advance Directives Yes January 17, 2024 7:22am Chief Complaint and Reason for Visit Chief Complaint Urinary tract infect ion, site not specified HYDRONEPHROSIS Chief Complaint 2 ORDERING SANDHYA - DR VALENTE AND DR RANDLE SCREENING/OSTEO [...] :54am Hypertension September 05, 2024 7:54a m Chief Complaint Admit Date heart valve repair June 06, 2024 10:15am INT LAB ORDERS June 09, 2024 9:17 am DYSPNEA July 04, 2024 10: 52am heart valve repair July 07, 2024 10: 15am heart valve repair July 30, 2024 10: 15am PAIN- COPY PCP August 05, 2024 9:1 4am PAIN- COPY PCP August 29, 2024 2:42p m 3 M FU September 05, 2024 7:54a m sob September 17, 2024 9:43 pm Reason for Visit Admit Date Postoperative atrial fibrillation September 052024 7:54am S/P mitral valve repair September 05, 2024 7 :54am Hypertension September 05, 2024 7:54a m Chief Complaint Admit Date heart valve repair June 06, 2024 10:15am INT LAB ORDERS June 09, 2024 9:17 am DYSPNEA July 04, 2024 10: 52am heart valve repair July 07, 2024 10: 15am heart valve repair July 30, 2024 10: 15am PAIN- COPY PCP August 05, 2024 9:1 4am PAIN- COPY PCP August 29, 2024 2:42p m 3 M FU September 05, 2024 7:54a m PAF [employer] TO READ September 05, 2024 9:38a m sob September 17, 2024 9:43 pm Reason for Referral Specialty Diagnoses / Procedures Referred By Robert hart Referred To Contact Dentistry Diagnoses Pre-operative cardiovascular examination Mitral valve disorder Procedures CONSULT TO DENTISTRY OFFICE/OUTPATIENT NEW HIGH MDM 60 MINUTES Esme Arango MD [address] [place] [address] Referral ID Status Reason Start Date Expiration Date Visits Requested Visits Authorized [id number] New Request PCP Requested Referral 4 02/25/2025 1 1 Specialty Diagnoses / Procedures Referred By Robert hart Ref[facility] Diagnoses Pre-operative cardiovascular examination Mitral valve disorder Procedures ECHO ECHO TTHRC R-T 2D W/WOM-MODE COMPL SPEC&COLR D Esme Arango MD [address] [place] [address] [facility] [place] [address] Referral ID Status Reason Start Date Expiration Date Visits Requested Visits Authorized [id number] Authorized Auto-Generat ed Referral 4 02/25/2025 1 1 Specialty Diagnoses / Procedures Referred By Contac t Referred To Contact [facility] [place] Diagnoses Pre-operative cardiovascular examination Mitral valve disorder Procedures ECG COMPLETE ECG ROUTINE ECG W/LEAST 12 LDS W/I&R Esme Arango MD [address] [place] [address] [place] [address] Referral ID Status Reason Start Date Expiration Date Visits Requested Visits Authorized [id number] New Request Auto-Generat ed Referral 4 02/25/2025 1 1 Specialty Diagnoses / Procedures Referred By Contac t Referred To Contact Cardiac Surg Diagnoses Pre-operative cardiovascular examination Mitral valve disorder Procedures CARDIOTHORACIC PREOP EVALUATION OFFICE/OUTPATIENT [facility] [facility] 60 MINUTES Esme Arango MD [facility] [place] [address] Referral ID Status Reason Start Date Expiration Date Visits Requested Visits Authorized [id number] Authorized PCP Requested Referral 4 02/25/2025 1 1 Specialty Diagnoses / Procedures Referred By Contac t Referred To Contact Cardiology Diagnoses Pre-operative cardiovascular examination Mitral valve disorder Procedures CONSULT TO CARDIOLOGY OFFICE/OUTPATIENT [facility] 60 MINUTES Esme Arango MD [address] [place] [address] Referral ID Status Reason Start Date Expiration Date Visits Requested Visits Authorized [id number] Authorized PCP Requested Referral 4 02/25/2025 1 1 Specialty Diagnoses / Procedures Referred By Contac t Referred To Contact [facility] [place] Procedures CARDIOVASCULAR MEDICINE OP FOLLOW UP APPT ORDER Moises-Michell, Herlinda Cerda MD [address] [place] [address] [facility] [place] [address] [place] [address] Referral ID Status Reason Start Date Expiration Date Visits Requested Visits Authorized [id number] Ref Not Required PCP Requested Referral 4 03/04/2025 1 1 Specialty Diagnoses / Procedures Referred By Contac t Referred To Contact Diagnoses Syncope, unspecified syncope type Pre-op testing Mitral valve prolapse Procedures CONSULT TO ELECTROPHYSIOLOGY OFFICE/OUTPATIENT [facility] 60 MINUTES Jeremias Tanner MD [address] [place] [address] Davon Ramos MD [address] [place] [address] Referral ID Status Reason Start Date Expiration Date Visits Requested Visits Authorized [id number] Authorized PCP Requested Referral 4 01/30/2025 1 1 Specialty Diagnoses / Procedures Referred By Contac t Referred To Contact CT IMAGING Diagnoses Syncope, unspecified syncope type Pre-op testing Mitral valve prolapse Procedures CT CHEST WO IVCON DIAGNOSTIC COMPUTED TOMOGRAPHY THORAX W/O CNTRST Esperanza Gonzalez, LENNY.[address] [place] [address] [place] [address] Referral ID Status Reason Start Date Expiration Date Visits Requested Visits Authorized [id number] Authorized Auto-Generat ed Referral 4 03/01/2025 1 1 Additional Source Comments INFORMATION SOURCE (unrecogn ized section and content) DATE CREATED AUTHOR 09/02/2020 [facility] DATE CREATED AUTHOR AUTHOR'S ORGANIZ ATION 01/21/2024 [facility] DATE CREATED AUTHOR AUTHOR'S ORGANIZ ATION 05/18/2024 [facility] DATE CREATED AUTHOR AUTHOR'S ORGANIZ ATION 09/28/2024 [facility] DATE CREATED AUTHOR AUTHOR'S ORGANIZ ATION 10/04/2024 [facility] Goals (unrecognized section and content) Goals [...] Active Member Role Status Dates Dr. Davey Vlaente DO Family Provider Active Dr. Davey Valente DO Primary Care Provider Active Team Status: Inactive Member Role Status Dates Dr. Davey Valente , DO Primary Care Provider, Referrin g Provider Active Dr. Julio Ochoa , DO Attending Provider Active Team Status: Inactive Member Role Status Dates Dr. Davey Valente DO Primary Care Prov ider, Attending Provider, Referring Provider Active Team Status: Inactive Member Role Status Dates Dr. Davey Valente DO Primary Care Provider Active Dr. Julio Ochoa , DO Attending Provider Active Team Status: Inactive Member Role Status Dates Dr. Davey Valente DO Primary Care Provider Active Dr. Shyla Randle MD Attending Provider, Referring Provider Active Team Status: Inactive Member Role Status Dates Dr. Davey Valenet DO Primary Care Provider, Referrin g Provider Active Dr. Chani Cervantes MD Attending Provider Active [employer] Relationship Specialty Start Date End Date Davey Valente DO [address] [address] PCP - General Family Medicine 01/24/24 Kenny Alejandro MD [address] [place], [place] [phone] Cardiology 01/24/24 [employer] Assembler Relationship Specialty Start Date End Date Davey Valente DO [address] [place] [phone] PCP - General Family Medicine 01/24/24 Kenny Alejandro MD [address] [place], [place] [phone]- Cardiology 01/24/24 [employer] Assembler Relationship Specialty Start Date End Date Davey Valente DO [address] [place] [address] PCP - General Family Medicine 01/24/24 Kenny Alejandro MD [address] [place] [id number] Cardiology 01/24/24 Esme Arango MD [address] [place] [phone] Surgeon Cardiac Surg 02/20/24 [employer] Assembler Relationship Specialty Start Date End Date Davey Valente DO [address] [place] [address] PCP - General Family Medicine 01/24/24 Kenny Alejandro MD [address] [place] [phone]- Cardiology 01/24/24 Esme Arango MD [address] [place] [address] Surgeon Cardiac Surg 02/20/24 [employer] Assembler Relationship Specialty Start Date End Date Davey Valente DO [address] [place] [address] PCP - General Family Medicine 01/24/24 Kenny Alejandro MD [address] [phone] Cardiology 01/24/24 Esme Arango MD [address] [place] [address] Surgeon Cardiac Surg 02/20/24 Herlinda Nesbitt MD [address] [place] [address] Primary Staff Physician Cardiology 03/03/24 [employer] Assembler Relationship Specialty Start Date End Date Davey Valente DO [address] [place] [phone] PCP - General Family Medicine 01/24/24 Kenny Alejandro MD [address] [phone] Cardiology 01/24/24 Esme Arango MD [address] [place] [address] Surgeon Cardiac Surg 02/20/24 Herlinda Nesbitt MD [address] [place] [address] Primary Staff Physician Cardiology 03/03/24 [employer] Assembler Relationship Specialty Start Date End Date Davey Valente DO [address] [place] [address] PCP - General Family Medicine 01/24/24 Kenny Alejandro MD [address] [phone] Cardiology 01/24/24 Esme Arango MD [address] [place] [address] Surgeon Cardiac Surg 02/20/24 Herlinda Nesbitt MD [address] [place] [address] Primary Staff Physician Cardiology 03/03/24 [employer] Frame Assembler Relationship Specialty Start Date End Date Davey Valente DO [address] [place] [phone] PCP - General Family Medicine 01/24/24 Kenny Alejandro MD [address] [phone] Cardiology 01/24/24 Esme Arango MD [address] [place] [address] Surgeon Cardiac Surg 02/20/24 Herlinda Nesbitt MD [address] [place] [address] Primary Staff Physician Cardiology 03/03/24 [employer] Assembler Relationship Specialty Start Date End Date Davey Valente DO [address] [place] [phone] PCP - General Family Medicine 01/24/24 Kenny Alejandro MD [address] [phone] Cardiology 01/24/24 Esme Arango MD [address] [place], [place] [phone] Surgeon Cardiac Surg 02/20/24 Herlinda Nesbitt MD [facility] [place] [id number] Primary Staff Physician Cardiology 03/03/24 [employer] Frame Assembler Relationship Specialty Start Date End Date Davey Valente DO [address] [place] [phone] PCP - General Family Medicine 01/24/24 Kenny Alejandro MD [address] [phone] Cardiology 01/24/24 Esme Arango MD [address] [place] [phone] Surgeon Cardiac Surg 02/20/24 [employer] Assembler Relationship Specialty Start Date End Date Davey Valente DO [address] [place] [phone] PCP - General Family Medicine 01/24/24 Kenny Alejandro MD [address] [phone] Cardiology 01/24/24 Esme Arango MD [facility] [place] [address] Surgeon Cardiac Surg 02/20/24 Herlinda Nesbitt MD [address] [place] [address] Primary Staff Physician Cardiology 03/03/24 [employer] Frame Assembler Relationship Specialty Start Date End Date Davey Valente DO [address] [place] [address] PCP - General Family Medicine 01/24/24 Kenny Alejandro MD [address] [address] Cardiology 01/24/24 Esme Arango MD [facility] [place] [address] Surgeon Cardiac Surg 02/20/24 Herlinda Nesbitt MD [address] [place] [address] Primary Staff Physician Cardiology 03/03/24 [employer] Frame Assembler Relationship Specialty Start Date End Date Davey Valente DO [address] [place] [address] PCP - General Family Medicine 01/24/24 Kenny Alejandro MD [address] [address] Cardiology 01/24/24 [employer] Assembler Relationship Specialty Start Date End Date Davey Valente DO [address] [place] [phone] PCP - General Family Medicine 01/24/24 Kenny Alejandro MD [address] [phone] Cardiology 01/24/24 Esme Arango MD [address] [place], [place] [phone] Surgeon Cardiac Surg 02/20/24 Herlinda Nesbitt MD [address] [place], [place] [phone] Primary Staff Physician Cardiology 03/03/24 Team Status: Active Member Role Status Dates Dr. Davey Valente DO Primary Care Provider Active Team Status: Inactive Member Role Status Dates Dr. Davey Valente DO Primary Care Provider Active Start: April 10, 2024 End: April 10, 2024 MATILDE Roberts Attending Provider Active Start: April 10, 2024 End: April 10, 2024 MATILDE Roberts Referring Provider Active Start: April 10, 2024 [...] 14, 2024 End: May 14, 2024 Soraya Mark PA, PA Attending Provider Active Start: May 14, [...] September 05, 2024 End: September 05, 2024 Team Status: Inactive Member Role Status Dates Dr. Davey Valente DO Primary Care Provider Active Start: September 17, 2024 End: September 18, 2024 Obi Rodgers MD Emergency Provider Active Star t: September 17, 2024 End: September 18, 2024 Team Status: Active Member Role/Relationship Status Dates Dr. Davey Valente DO Primary Care Provider Active Team Status: Inactive Member Role/Relationship Status Dates Dr. Davey Valente DO Primary Care Provider Active Start: June 06, 2024 End: June 06, 2024 Dr. Kenny Alejandro MD Attending Provider Active S tart: June 06, 2024 End: June 06, 2024 Dr. Kenny Alejandro MD Referring Provider Active S tart: June 06, 2024 End: June 06, 2024 Team Status: Inactive Member Role/Relationship Status Dates Dr. Davey Valente DO Primary Care Provider Active Start: June 09, 2024 End: June 09, 2024 Soraya Mark PA, PA Attending Provider Active Start: June 09, 2024 End: June 09, 2024 Soraya Mark PA, PA Referring Provider Active Start: June 09, 2024 End: June 09, 2024 Team Status: Inactive Member Role/Relationship Status Dates Dr. Davey Valente DO Primary Care Provider Active Start: July 04, 2024 End: July 04, 2024 Soraya [place] PA Attending Provider Active Start: July 04, 2024 End: July 04, 2024 Soraya [place] PA Referring Provider Active Start: July 04, 2024 End: July 04, 2024 Team Status: Active Member Role/Relationship Status Dates Dr. Davey Valente DO Primary Care Provider Active Start: July 04, 2024 Dr. Kenny Alejandro MD Attending Provider Active S tart: July 04, 2024 Team Status: Inactive Member Role/Relationship Status Dates Dr. Davey Valente DO Primary Care Provider Active Start: July 07, 2024 End: July 07, 2024 Dr. Kenny Alejandro MD Attending Provider Active S tart: July 07, 2024 End: July 07, 2024 Dr. Kenny Alejandro MD Referring Provider Active S tart: July 07, 2024 End: July 07, 2024 Team Status: Inactive Member Role/Relationship Status Dates Dr. Davey Valente DO Primary Care Provider Active Start: July 30, 2024 End: August 06, 2024 Dr. Kenny Alejandro MD Attending Provider Active S tart: July 30, 2024 End: August 06, 2024 Dr. Kenny Alejandro MD Referring Provider Active S tart: July 30, 2024 End: August 06, 2024 Team Status: Inactive Member Role/Relationship Status Dates Dr. Davey Valente DO Primary Care Provider Active Start: August 05, 2024 End: August 05, 2024 Dr. Shyla Randle MD Attending Provider Active Start: August 05, 2024 End: August 05, 2024 Dr. Shyla Randle MD Referring Provider Active Start: August 05, 2024 End: August 05, 2024 Team Status: Inactive Member Role/Relationship Status Dates Dr. Davey Valente DO Primary Care Provider Active Start: August 29, 2024 End: August 29, 2024 Dr. Shyla Randle MD Attending Provider Active Start: August 29, 2024 End: August 29, 2024 Dr. Shyla Randle MD Referring Provider Active Start: August 29, 2024 End: August 29, 2024 Team Status: Inactive Member Role/Relationship Status Dates Dr. Davey Valente DO Primary Care Provider Active Start: September 05, 2024 End: September 05, 2024 Dr. Davey Valente DO Referring Provider Active Start: September 05, 2024 End: September 05, 2024 Soraya [place] PA Attending Provider Active Start: September 05, 2024 End: September 05, 2024 Team Status: Active Member Role/Relationship Status Dates Dr. Davey Valente DO Primary Care Provider Active Start: September 05, 2024 Soraya [place] PA Attending Provider Active Start: September 05, 2024 Soraya [place] PA Referring Provider Active Start: September 05, 2024 Team Status: Inactive Member Role/Relationship Status Dates Dr. Davey Valente DO Primary Care Provider Active Start: September 17, 2024 End: September 18, 2024 Obi Rodgers MD Attending Provider Active Star t: September 17, 2024 End: September 18, 2024 Obi Rodgers MD Emergency Provider Active Star t: September 17, 2024 End: September 18, 2024 Team Status: Inactive Member Role/Relationship Status Dates Dr. Davey Valente DO Primary Care Provider Active Start: September 25, 2024 End: September 25, 2024 Dr. Mike Resendez MD Attending Provider Active Start: September 25, 2024 End: September 25, 2024 Dr. Mike Resendez MD Referring Provider Active Start: September 25, 2024 End: September 25, 2024 Source Comments (unrecognize d section and content) In the event this informatio n is protected by the Federal Confidentiality of Alcohol and Drug Abuse Patient Records regulations: The Federal rules restrict any use of the information to criminally investigate or prosecute any alcohol or drug abuse patient.[facility] the event this information is protected by the Federal Confidentiality of Alcohol and Drug Abuse Patient Records regulations: The Federal rules restrict any use of the information to criminally investigate or prosecute any alcohol or drug abuse patient.[facility] the event this information is protected by the Federal Confidentiality of Alcohol and Drug Abuse Patient Records regulations: The Federal rules restrict any use of the information to criminally investigate or prosecute any alcohol or drug abuse patient.[facility] the event this information is protected by the Federal Confidentiality of Alcohol and Drug Abuse Patient Records regulations: The Federal rules restrict any use of the information to criminally investigate or prosecute any alcohol or drug abuse patient.[facility] the event this information is protected by the Federal Confidentiality of Alcohol and Drug Abuse Patient Records regulations: The Federal rules restrict any use of the information to criminally investigate or prosecute any alcohol or drug abuse patient.[facility] the event this information is protected by the Federal Confidentiality of Alcohol and Drug Abuse Patient Records regulations: The Federal rules restrict any use of the information to criminally investigate or prosecute any alcohol or drug abuse patient.[facility] the event this information is protected by the Federal Confidentiality of Alcohol and Drug Abuse Patient Records regulations: The Federal rules restrict any use of the information to criminally investigate or prosecute any alcohol or drug abuse patient.[facility] the event this information is protected by the Federal Confidentiality of Alcohol and Drug Abuse Patient Records regulations: The Federal rules restrict any use of the information to criminally investigate or prosecute any alcohol or drug abuse patient.[facility] the event this information is protected by the Federal Confidentiality of Alcohol and Drug Abuse Patient Records regulations: The Federal rules restrict any use of the information to criminally investigate or prosecute any alcohol or drug abuse patient.[facility] Center[facility] the event this information is protected by the Federal Confidentiality of Alcohol and Drug Abuse Patient Records regulations: The Federal rules restrict any use of the information to criminally investigate or prosecute any alcohol or drug abuse patient.[facility] the event this information is protected by the Federal Confidentiality of Alcohol and Drug Abuse Patient Records regulations: The Federal rules restrict any use of the information to criminally investigate or prosecute any alcohol or drug abuse patient.[facility] Center[facility] the event this information is protected by the Federal Confidentiality of Alcohol and Drug Abuse Patient Records regulations: The Federal rules restrict any use of the information to criminally investigate or prosecute any alcohol or drug abuse patient.[facility] Center[facility] the event this information is protected by the Federal Confidentiality of Alcohol and Drug Abuse Patient Records regulations: The Federal rules restrict any use of the information to criminally investigate or prosecute any alcohol or drug abuse patient.[facility] Center[facility] the event this information is protected by the Federal Confidentiality of Alcohol and Drug Abuse Patient Records regulations: The Federal rules restrict any use of the information to criminally investigate or prosecute any alcohol or drug abuse patient.[facility] Center[facility] the event this information is protected by the Federal Confidentiality of Alcohol and Drug Abuse Patient Records regulations: The Federal rules restrict any use of the information to criminally investigate or prosecute any alcohol or drug abuse patient.[facility] Center[facility] the event this information is protected by the Federal Confidentiality of Alcohol and Drug Abuse Patient Records regulations: The Federal rules restrict any use of the information to criminally investigate or prosecute any alcohol or drug abuse patient.[facility] CenterIn the event this information is protected by the Federal Confidentiality of Alcohol and Drug Abuse Patient Records regulations: The Federal rules restrict any use of the information to criminally investigate or prosecute any alcohol or drug abuse patient.[facility] CenterIn the event this information is protected by the Federal Confidentiality of Alcohol and Drug Abuse Patient Records regulations: The Federal rules restrict any use of the information to criminally investigate or prosecute any alcohol or drug abuse patient.[facility] CenterIn the event this information is protected by the Federal Confidentiality of Alcohol and Drug Abuse Patient Records regulations: The Federal rules restrict any use of the information to criminally investigate or prosecute any alcohol or drug abuse patient.[facility] Center[facility] the event this information is protected by the Federal Confidentiality of Alcohol and Drug Abuse Patient Records regulations: The Federal rules restrict any use of the information to criminally investigate or prosecute any alcohol or drug abuse patient.[facility] Reason for Visit (unrecogniz ed section and content) Reason Comments Patient Update Reason Comments Insurance Inquiry Reason Comments Informed Consent Reason Comments Referral Information Pre-Op CTHO Consult Cardiac Preop Checklist Specialty Diagnoses / Procedures Referred By Robert hart Referred To Contact Dentistry Diagnoses Pre-operative cardiovascular examination Mitral valve disorder Procedures CONSULT TO DENTISTRY OFFICE/OUTPATIENT [facility] 60 MINUTES Esme Arango MD [address] [place] [address] Referral ID Status Reason Start Date Expiration Date Visits Requested Visits Authorized [id number] New Request PCP Requested Referral 4 02/25/2025 [...] BE BASED ON THE PRIMARY CLINICAL RECORDS. [employer] provides no warranty or guarantee of the accuracy or completeness of information in this document.
--- NOTE | 2024-10-08 01:22 | EX.ED.DYSGE1 ---
HPI History of Present Illness Chief Complaint: Back Informant: patient and spouse/S.O. Narrative Narrative: Patient is an 78-year-old female with past medical history of of hypertension GERD and mitral valve prolapse. She was seen recently due to low back pain without report of trauma and was informed that symptoms are most consistent with potential nerve entrapment. She is on prednisone and gabapentin and states she has been taking these without much symptom improvement. She denies any loss of bowel or bladder control or IV drug use. She denies any recent injections or surgery. She states she is scheduled to follow with Dr. Mcdaniels/spine surgery and is also scheduled to have an MRI in the next few days. She denies any excessive activity or trauma. However she states that despite using the recently prescribed medication her pain is not allowing her to sleep and therefore she comes in for evaluation [facility] Medical History Postoperative atrial fibrillation Wears hearing aid Wears glasses Post-menopausal Anxiety History of steroid therapy Back pain Blackout Difficulty swallowing History of hiatal hernia History of ulceration Asthma Shortness of breath on exertion Non-smoker Leg cramps History of pain when walking History of echocardiogram History of transesophageal echocardiography (SRIDEVI) Cardiology follow-up encounter Sacral nerve stimulator present Dyspnea Hypoglycemia Vestibular migraine OAB (overactive bladder) Vertigo Vitamin D deficiency GERD (gastroesophageal reflux disease) Hiatal hernia Solitary kidney, acquired Mitral valve prolapse Cardiac murmur Syncope and collapse Hypertension Arthritis Home Medications ?Medication ?Instructions ?Recorded ?Last Taken ?Type pantoprazole 20 mg tablet,delayed 20 mg PO DAILY 01/05/22 01/27/24 History release (Protonix) aspirin 81 mg tablet,delayed 81 mg PO QDAY 04/10/24 Unknown History release (Adult Low Dose Aspirin) cholecalciferol (vitamin D3) 25 25 mcg PO QDAY 05/14/24 Unknown History mcg (1,000 unit) capsule glucosam 750 mg-chondroi 100 1 tab PO DAILY 05/14/24 Unknown History mg-hyalur 1.65 mg-CF borate 108 mg tablet ([employer]) nebivolol 2.5 mg tablet 2.5 mg PO QDAY #30 tabs 09/19/24 Unknown Rx gabapentin 300 mg capsule 300 mg PO TID 10/08/24 Unknown History methocarbamol 500 mg tablet 500 mg PO 4X/DAY PRN Muscle 10/08/24 Unknown Rx pain/spasm #40 tabs ondansetron 4 mg disintegrating 4 mg PO TID PRN nausea and 10/08/24 Unknown Rx tablet vomiting #21 tabs oxycodone 5 mg tablet 5 mg PO Q6H PRN pain 5 days #20 10/08/24 Unknown Rx tabs prednisone 20 mg tablet 20 mg PO .COMPLEX 10/08/24 Unknown History Allergy/AdvReac Type Severity Reaction Status Date / Time oxycodone Allergy Severe Nausea Verified 10/07/24 23:38 omeprazole Allergy Intermediate Vomiting Verified 10/07/24 23:38 Sulfa (Sulfonamide Allergy Mild Itching Verified 10/07/24 23:38 Antibiotics) codeine Allergy Vomiting Verified 10/07/24 23:38 methylprednisolone (From AdvReac Severe Itching Verified 10/07/24 23:38 Medrol) Family History Aunt Breast cancer Mother Pancreatic cancer Brother Pancreatic cancer Cancer of blood vessel Surgical History S/P mitral valve repair S/P inguinal hernia repair History of cardiac catheterization Hx of right cataract extraction Hx of left cataract extraction History of esophagogastroduodenoscopy (EGD) Hx of colonoscopy History of back surgery Hx of cholecystectomy Total knee replacement status History of hysterectomy History of kidney surgery Social History Smoking Status: Never smoker alcohol intake: never substance use type: does not use what type of physical activity do you participate in: walking seatbelt use: always do you feel safe at home: Yes additional social history: patient is retired from [employer] after 41 years [employer]ne- works at [employer] ED Constitutional Constitutional ED: Denies chills or fever(s) Cardiovascular Cardiovascular: Denies chest pain Respiratory/Chest Respiratory/Chest: Denies cough or dyspnea Gastrointestinal Gastrointestinal: Denies abdominal pain, diarrhea, nausea or vomiting Genitourinary Genitourinary ED: Denies dysuria or hematuria Musculoskeletal Musculoskeletal: Reports back pain Integumentary Denies rash Neurologic Neurologic: Reports paresthesias; Denies headache(s) Hematologic/Lymphatic Hematologic/Lymphatic: Denies easy bleeding or easy bruising EXAM Physical Exam Const Vital Signs: 10/07/24 23:35 Temperature 96.8 F L Temperature Source Temporal Pulse Rate 87 Respiratory Rate 16 Blood Pressure 161/102 H Blood Pressure Mean 121 Pulse Ox 97 Oxygen Delivery Method Room Air Positive well nourished and well developed General Appearance ED: well developed HEENT HEENT Narrative: Normocephalic atraumatic Eyes PERRL and EOMs intact bilaterally General Eye ED: Negative for scleral icterus Neck supple Neck Narrative: No nuchal rigidity or meningeal signs Resp normal respiratory effort and clear to auscultation bilaterally Cardio regular rate and regular rhythm Rate: other Other Details: Radial and carotid pulses are equal and symmetric GI normal to inspection, nondistended, normoactive bowel sounds, non-tender, non-distended and no masses GI Narrative: No voluntary guarding or rigidity or pulsatile mass Auscultation: normoactive bowel sounds Palpation: soft Back/Spine Back/Spine Narrative: No bony deformity or step-off of the thoracic or lumbar spine There is lower lumbar pain with palpation as well as bilateral paralumbar tension and spasm noted No saddle anesthesia. No clonus or Babinski. Straight leg raise is positive on the left however at approximately 45 degrees. Left patellar reflex is plus 1 out of 4 while the right is plus 2 out of 4. Extremity normal to inspection Extremity Narrative: All compartments are soft and compressible going against compartment syndrome Neuro oriented x3 and CN's II-XII intact bilaterally Sensorium / Orientation: alert Psych mental status grossly normal Skin no rashes or lesions noted Skin Narrative: No overlying soft tissue changes to suggest trauma or infection MDM MDM MDM Narrative Medical decision making narrative: Patient arrived to the ER hypertensive otherwise with stable vitals. She denied any recent trauma going against a compression fracture or spondylolisthesis. She denied any loss of bowel or bladder control or IV drug use or recent surgical intervention going against cauda equina epidural abscess or discitis. She has an MRI scheduled in approximately 24 hours and is also scheduled to follow-up with the spine surgeon. Therefore at this time I do not feel there is need for further imaging or laboratory studies. Her history and exam is most consistent with nerve root impingement causing acute lumbar radiculopathy mainly on the left. Therefore at this time I will provide pain relief but as there is no signs of neurovascular compromise or secondary infection there is no need for emergent spine intervention/consultation and she is otherwise safe for discharge History & Record Review Discussion w/independent historian: Patient and Significant other Discharge Plan Triage Chief Complaint: Back ED Provider: Mario Emerson Dx/Rx/DC Orders Clinical Impression: Acute lumbar radiculopathy, Mitral valve prolapse, GERD (gastroesophageal reflux disease), Hypertension Instructions: Understanding Lumbar Radiculopathy Prescriptions: New ondansetron 4 mg tablet,disintegrating 4 mg PO TID PRN (Reason: nausea and vomiting) Qty: 21 1RF oxycodone 5 mg tablet 5 mg PO Q6H PRN (Reason: pain) 5 Days Qty: 20 0RF methocarbamol 500 mg tablet 500 mg PO 4X/DAY PRN (Reason: Muscle pain/spasm) Qty: 40 0RF No Action pantoprazole [Protonix] 20 mg tablet,delayed release (DR/EC) 20 mg PO DAILY aspirin [Adult Low Dose Aspirin] 81 mg tablet,delayed release (DR/EC) 81 mg PO QDAY cholecalciferol (vitamin D3) 25 mcg (1,000 unit) capsule 25 mcg PO QDAY [employer] 750 mg-100 mg- 1.65 mg-108 mg tablet 1 tab PO DAILY prednisone 20 mg tablet 20 mg PO .COMPLEX Rx Instructions: 20 mg orally; 2 tabs daily fpr 4d 1 tab for 4d 0.5 daily for 4d gabapentin 300 mg capsule 300 mg PO TID nebivolol 2.5 mg tablet 2.5 mg PO QDAY Qty: 30 11RF Primary Care Provider: Ricardo Reynolds Referrals: Curt Kendrick MD [Med Staff - Active Staff] - Ricardo Reynolds DO [Primary Care Provider] - Activity Restrictions/Additional Instructions: Please continue your steroid and gabapentin to reduce nerve pain and inflammation. Add the muscle relaxer and pain pill for improved symptom control. Please continue to follow-up with your spine surgeon to discuss further treatment options such as injection or surgery and return to the ER should you have any further concerns Print Language: Chadian Disposition Disposition: Home, Self Care Discharge Date/Time: 10/08/24 02:00
[2024-10-08 01:33] VITALS: BP 155/90; PULSE 85; RESP 15; TEMP 36.1; O2SAT 97
== END 2024-10-08 02:00 | disposition home or self-care (01) ==
PROVIDERS: Emergency Provider Emergency Medicine; PCP Family Medicine; Visit Provider Emergency Medicine
DX: M54.16 Radiculopathy, lumbar region (principal); K21.9 Gastro-esophageal reflux disease without esophagitis; I10 Essential (primary) hypertension; I34.1 Nonrheumatic mitral (valve) prolapse; Z79.899 Other long term (current) drug therapy; Z79.82 Long term (current) use of aspirin; Z98.41 Cataract extraction status, right eye; Z98.42 Cataract extraction status, left eye; Z90.49 Acquired absence of other specified parts of digestive tract; Z96.659 Presence of unspecified artificial knee joint; Z90.710 Acquired absence of both cervix and uterus
CPT/HCPCS: 96372; 99285

== ENCOUNTER → 2024-10-09 | Outpatient (CLI) | payer MEDICARE, BC, SELFPAY ==
[2024-07-16 07:16] VITALS: BMI 27.6
== END | disposition home or self-care (01) ==
LOC: OPMRI 07:17
PROVIDERS: PCP Family Medicine; Referring Provider Family Medicine; Visit Provider Family Medicine
DX: M51.16 Intervertebral disc disorders with radiculopathy, lumbar region (principal)
CPT/HCPCS: 72158; A9575

== ENCOUNTER 2024-10-20 13:10 | Observation (INO) | payer MEDICARE, BC, SELFPAY ==
[2024-07-16 07:16] VITALS: BMI 27.6
--- NOTE | 2024-10-16 19:10 | PAT.ANE_ITS ---
Pre-Assessment Diagnosis/Proposed Procedure Planned Operative Procedure(s): LUMBAR LAMINECTOMY DISECTOMY L4-5 Anesthesia History Anesthesia History - legal cashier: Anesthesia History - legal cashier Hx Hospitalization Yes: MAR 2024- MITRAL VALVE 10/16/24 14:09 REPAIR CC Any Problems With Anesthesia No 10/16/24 14:09 Cholinesterase deficiency No 10/16/24 14:09 You/Your Family Experience No 10/16/24 14:09 fever (hyperthermia) with Relationship Recent Exposure to Contagious No 01/28/24 06:46 Disease Does patient have nerve Yes: BRINGING REMOTE 10/16/24 14:09 stimulator Patient instructed to have device shut off --Does patient have Pacemaker or ICD? When Was Last Pacemaker Check QUESTION #4 FULL TEXT: You/Your Family Experience fever (hyperthermia) with Anesthesia Last Oral Intake Last Oral intake: Last Oral Intake NPO since Meds taken in AM with sips of water? Meds patient instructed to take am of surgery PONV PONV - legal cashier: PONV - legal cashier Female Yes 10/16/24 14:09 HX of Motion Sickness Yes 10/16/24 14:09 HX of N/V After Surgery No 10/16/24 14:09 Non-Smoker Yes 10/16/24 14:09 Duration of Surgery greater Yes 10/16/24 14:09 than 60 minutes Number of Risk Factors 4 10/16/24 14:09 PONV Score Severe Risk 10/16/24 14:09 Height & Weight Height & Weight: Anesthesia: Height & Weight Height 5 ft 2 in 10/15/24 10:07 Respiratory Assessment Respiratory Assessment - legal cashier: Respiratory Tract Infection Hx - legal cashier Hx Respiratory Tract Infection No 10/16/24 14:09 STOP Sleep Apnea STOP Sleep Apnea - legal cashier: STOP Sleep Apnea - legal cashier Hx Hypertension Yes: CONTROLLED WITH MEDS 10/16/24 14:09 Hx Sleep Apnea No 10/16/24 14:09 CPAP No 06/30/20 12:03 BIPAP No 06/30/20 12:03 Do you snore loudly (louder No 10/16/24 14:09 than talking or can be heard Do you often feel tired/ No 10/16/24 14:09 fatigued/ sleepy during daytime? Has anyone observed you stop No 10/16/24 14:09 breathing during sleep? STOP Results Negative 10/16/24 14:09 QUESTION #5 FULL TEXT : Do you snore loudly (louder than talking or can be heard through closed doors)? Tobacco Use History Tobacco Use History - legal cashier: Tobacco Use History - legal cashier Tobacco Use Smoking Status Never smoker 10/16/24 14:09 Hx Tobacco Use No 10/16/24 14:09 Years Smoking Packs Smoked per Day Smoking Cessation Date was within the last 15 years Hx Smoking Cessation Date Hx Smoking Cessation Counseling Hematologic Medial History Hematologic Hx - legal cashier: Hematologic Medical Hx - customer development representative Hx of Blood Transfusion No 10/16/24 14:09 Hx of Transfusion in last 3 No 10/16/24 14:09 Months Date of Last Transfusion (if within last 3 months) Ever experience any problems No 10/16/24 14:09 with transfusion(s)? Specify any problems Hx of Preganancy in last 3 No 10/16/24 14:09 Months Nurse Filling Out Transfusion [email or web address] 10/16/24 14:09 & Questions: Date: 10/16/24 10/16/24 14:09 Time: 14:16 10/16/24 14:09 Patient unable to answer at this time (ie. confused, unrespo /Reproduction History /Reproductive History - legal cashier: /Reproductive Hx- legal cashier Hx Now No 10/16/24 14:09 Gestational Age (in weeks): EDC: Hx Hx Para Hx Section SAB No 10/16/24 14:09 PFSH Medical History (Updated 10/16/24 @ 14:25 by Haile Reece) Walker as ambulation aid Hoarseness History of Holter monitoring Postoperative atrial fibrillation Wears hearing aid Wears glasses Post-menopausal Anxiety History of steroid therapy Back pain Blackout Difficulty swallowing History of hiatal hernia History of ulceration Asthma Shortness of breath on exertion Non-smoker Leg cramps History of pain when walking History of echocardiogram History of transesophageal echocardiography (SRIDEVI) Cardiology follow-up encounter Sacral nerve stimulator present Dyspnea Hypoglycemia Vestibular migraine OAB (overactive bladder) Vertigo Vitamin D deficiency GERD (gastroesophageal reflux disease) Hiatal hernia Solitary kidney, acquired Mitral valve prolapse Cardiac murmur Syncope and collapse Hypertension Arthritis Home Medications Medication Instructions Recorded Last Taken Type pantoprazole 20 mg tablet,delayed 20 mg PO DAILY 01/0501/27/24 History release (Protonix) aspirin 81 mg tablet,delayed 81 mg PO QDAY 04/10/24 Un known History release (Adult Low Dose Aspirin) cholecalciferol (vitamin D3) 25 25 mcg PO QDAY 5 Unknown History mcg (1,000 unit) capsule glucosam 750 mg-chondroi 100 1 tab PO DAILY 05/14/24 U nknown History mg-hyalur 1.65 mg-CF borate 108 mg tablet ([employer]) nebivolol 2.5 mg tablet 2.5 mg PO QDAY #30 tabs 09/07 07/01 Unknown Rx gabapentin 300 mg capsule 300 mg PO TID 10/08/24 Unkno wn History methocarbamol 500 mg tablet 500 mg PO 4X/DAY PRN Muscl e 10/08/24 Unknown Rx pain/spasm #40 tabs ondansetron 4 mg disintegrating 4 mg PO TID PRN nausea and 10/08/24 Unknown Rx tablet vomiting #21 tabs Allergy/AdvReac Type Severity Reaction Status Date / Time oxycodone Allergy Severe Nausea Verified 10/16/24 14:06 omeprazole Allergy Intermediate Vomiting Verified 10/16/24 14:06 Sulfa (Sulfonamide Allergy Mild Itching Verified 10/16/24 14:06 Antibiotics) codeine Allergy Vomiting Verified 10/16/24 14:06 methylprednisolone (From AdvReac Severe Itching Verified 10/16/24 14:06 Medrol) Family History Aunt Breast cancer Mother Pancreatic cancer Brother Pancreatic cancer Cancer of blood vessel Surgical History (Updated 10/16/24 @ 14:25 by Haile Reece) S/P mitral valve repair S/P inguinal hernia repair History of cardiac catheterization Hx of right cataract extraction Hx of left cataract extraction History of esophagogastroduodenoscopy (EGD) Hx of colonoscopy History of back surgery Hx of cholecystectomy Total knee replacement status History of hysterectomy History of kidney surgery Social History Smoking Status: Never smoker alcohol intake: never substance use type: does not use what type of physical activity do you participate in: walking seatbelt use: always do you feel safe at home: Yes additional social history: patient is retired from [employer] after 41 years [employer]ayne- works at [employer]: Pertinent Findings Pertinent Findings EKG Perinent findings: 09/17/2024. Sinus rhythm with short AL with PSVC's and frequent PVCs. Possible left atrial enlargement. Echo (EF%) pertinent findings: July 04, 2024. EF of 55%. PASP is 30 mmHg. No aortic stenosis is noted. Heart catheterization pertinent findings: 01/17/2024. Mild coronary artery disease, preserved ejection fraction. Moderately-severe mitral regurgitation with mitral valve prolapse. EF of 60%. (Mitral valve repaired as noted in cardiac consult) Consult pertinent findings: 09/05/2024. Jyoti MCKEE. 1. Status post mitral valve repair–acute-stable. Continue to monitor. Continue antibiotic prophylaxis. 2. Postoperative atrial fibrillation–acute-patient has not had any symptomatic recurrence. Continue metoprolol and aspirin. 3. Hypertension-blood pressure better since stopping amlodipine. Continue metoprolol. Additional pertinent findings: September 17, 2024. Holter monitor. Predominant rhythm is sinus with frequent ventricular ectopy. PVC burden was 14%. PAC burden was 1%. There were no patient triggers. Recommendation Anesthesia Recommendation Anesthesia recommendation: OPTIMIZED for anesthesia
[2024-10-17 13:30] LABS: HIV Nonreactive (Nonreactive); Hepatitis C Antibody Nonreactive (Nonreactive)
[2024-10-17 14:04] LABS: Magnesium 2.0 mg/dL (1.5-2.2)
[2024-10-20] VITALS (17 sets, daily range): BP systolic 132–174; BP diastolic 75–100; PULSE 76–92; RESP 12–16; TEMP 36–37.1; O2SAT 94–100; BMI 27.8; BMI 28.2
[2024-10-20] MEDS: Magnesium 1 GM over 15 mins IV (08:52)
[2024-10-20] MEDS: Lactated Ringers 1,000 ML 15 ML IV (08:52)
--- NOTE | 2024-10-20 09:24 | PRE.ANES_ITS ---
ASA Classification* ASA Classification ASA Classification: 3 Assessment & Plan Anesthesia* Anesthesia Assessment Anesthesia Assessment: Discussed sedation and/or anesthesia options, risks, benefits, and alternatives with patient/parents/legal guardian/POA. Questions invited. The patient/parents/legal guardian/POA seems to understand and agrees to proceed with anesthesia plan. Reviewed the physical assessment, medical history, allergy history and patient home medications list prior to surgery/procedure/anesthetic and documented any changes. Performed airway and anesthesia risk assessments. Anesthesia Type Anesthesia Type: General (We discussed the risks of postoperative ventilation, blood transfusion, multiple IV attempts, sore throat, injury to teeth gums or li ps. Discussed low risk of IN, CVA, seizure.) History Source History Obtained from:: Patient and Chart Anesthesia Focused Assessment* Temperature: 97.5 F Pulse Rate: 92 Blood Pressure: 141/87 Respiratory Rate: 12 Pulse Ox: 99 Oxygen Delivery Method: Room Air Airway Assessment Mouth opens: >3 cm Mallampati Score: II Teeth Condition: Intact Neck Range of motion (ROM): Full ROM Labs Anesthesia Preop lab: CBC WBC 10.0 K/mm3 (4.4-11.0) 09/17/24 22:04 09/17/24 RBC 4.41 M/mm3 (4.2-5.4) 09/17/24 22:04 09/17/24 Hgb 12.2 g/dL (12.0-15.0) 09/17/24 22:04 09/17/24 Hct 38.8 % (37-47) 09/17/24 22:04 09/17/24 Plt Count 272 K/mm3 (150-450) 09/17/24 22:04 09/17/24 CHEMISTRY Potassium 3.9 mmol/L (3.3-5.1) 09/17/24 22:04 09/17/24 Sodium 140 mmol/L (133-145) 09/17/24 22:04 09/17/24 Magnesium 2.0 mg/dL (1.5-2.2) 10/17/24 10:32 10/17/24 BUN 23 mg/dL (4-19) H 09/17/24 22:04 09/17/24 Creatinine 1.35 mg/dL (0.70-1.20) H 09/17/24 22:04 Glucose 106 mg/dL (70-99) H 09/17/24 22:04 09/17/24 POC Glucose 76 mg/dL (74-106) 10/20/24 08:34 10/20/24 TSH 2.550 uIU/mL (0.300-4.200) 06/09/24 09:20 03/0 07/01 COAG PT 14.5 SECONDS (11.7-14.9) 01/09/24 09:11 Pre-Assessment Diagnosis/Proposed Procedure Planned Operative Procedure(s): LUMBAR LAMINECTOMY DISECTOMY L4-5 Anesthesia History Anesthesia History - spring inspector: Anesthesia History - spring inspector Hx Hospitalization Yes: MAR 2024- [facility] 10/16/24 14:09 REPAIR CC Any Problems With Anesthesia No 10/16/24 14:09 Cholinesterase deficiency No 10/16/24 14:09 You/Your Family Experience No 10/16/24 14:09 fever (hyperthermia) with Relationship Recent Exposure to Contagious No 10/20/24 08:55 Disease Does patient have nerve Yes: BRINGING REMOTE 10/16/24 14:09 stimulator Patient instructed to have device shut off --Does patient have Pacemaker No 10/20/24 08:55 or ICD? When Was Last Pacemaker Check QUESTION #4 FULL TEXT: You/Your Family Experience fever (hyperthermia) with Anesthesia Last Oral Intake Last Oral intake: Last Oral Intake NPO since 06:30 10/20/24 08:55 Meds taken in AM with sips of Yes 10/20/24 08:55 water? Meds patient instructed to take am of surgery PONV PONV - spring inspector: PONV - spring inspector Female Yes 10/16/24 14:09 HX of Motion Sickness Yes 10/16/24 14:09 HX of N/V After Surgery No 10/16/24 14:09 Non-Smoker Yes 10/16/24 14:09 Duration of Surgery greater Yes 10/16/24 14:09 than 60 minutes Number of Risk Factors 4 10/16/24 14:09 PONV Score Severe Risk 10/16/24 14:09 Height & Weight Height & Weight: Anesthesia: Height & Weight Height 5 ft 2 in 10/20/24 08:55 Weight: 69 kg 10/20/24 08:55 Body Mass Index (BMI) 27.8 10/20/24 08:55 Respiratory Assessment Respiratory Assessment - spring inspector: Respiratory Tract Infection Hx - spring inspector Hx Respiratory Tract Infection No 10/16/24 14:09 STOP Sleep Apnea STOP Sleep Apnea - spring inspector: STOP Sleep Apnea - spring inspector Hx Hypertension Yes: CONTROLLED WITH MEDS 10/16/24 14:09 Hx Sleep Apnea No 10/16/24 14:09 CPAP No 06/30/20 12:03 BIPAP No 06/30/20 12:03 Do you snore loudly (louder No 10/16/24 14:09 than talking or can be heard Do you often feel tired/ No 10/16/24 14:09 fatigued/ sleepy during daytime? Has anyone observed you stop No 10/16/24 14:09 breathing during sleep? STOP Results Negative 10/16/24 14:09 QUESTION #5 FULL TEXT : Do you snore loudly (louder than talking or can be heard through closed doors)? Tobacco Use History Tobacco Use History - spring inspector: Tobacco Use History - spring inspector Tobacco Use Smoking Status Never smoker 10/16/24 14:09 Hx Tobacco Use No 10/16/24 14:09 Years Smoking Packs Smoked per Day Smoking Cessation Date was within the last 15 years Hx Smoking Cessation Date Hx Smoking Cessation Counseling Hematologic Medial History Hematologic Hx - spring inspector: Hematologic Medical Hx - clinical documentation manager Hx of Blood Transfusion No 10/16/24 14:09 Hx of Transfusion in last 3 No 10/16/24 14:09 Months Date of Last Transfusion (if within last 3 months) Ever experience any problems No 10/16/24 14:09 with transfusion(s)? Specify any problems Hx of Preganancy in last 3 No 10/16/24 14:09 Months Nurse Filling Out Transfusion [email or web address] 10/16/24 14:09 & Questions: Date: 10/16/24 10/16/24 14:09 Time: 14:16 10/16/24 14:09 Patient unable to answer at this time (ie. confused, unrespo /Reproduction History /Reproductive History - spring inspector: /Reproductive Hx- spring inspector Hx Now No 10/16/24 14:09 Gestational Age (in weeks): EDC: Hx Hx Para Hx Section SAB No 10/16/24 14:09 Active Medications Active Medications: Current Medications Generic Name Dose Route Start Last Admin Trade Name Freq PRN Reason Stop Dose Admin Acetaminophen 1,000 mg 10/20/24 10:15 10/20/24 09:05 Acetaminophen 500 Mg Tablet PO 10/20/24 10:16 1,000 mg PREOP ONE Administration Cefazolin Sodium 2 gm/ Sodium 110 mls @ 150 mls/hr 10/20/24 10:15 Chloride IV 10/20/24 10:58 INTRAOP ONE Tranexamic Acid 1,000 mg/ 110 mls @ 440 mls/hr 10/20/24 10:15 Sodium Chloride IV 10/20/24 10:29 INTRAOP ONE Tranexamic Acid 1,000 mg/ 110 mls @ 440 mls/hr 10/20/24 10:15 Sodium Chloride IV 10/20/24 10:29 INTRAOP ONE Magnesium Sulfate 1 gm/ 102 mls @ 408 mls/hr 10/20/24 10:15 10/20/24 08:52 Dextrose IV 10/20/24 10:29 408 mls/hr INTRAOP ONE Administration Lactated Ringer's 1,000 mls @ 15 mls/hr 10/20/24 08:30 10/20/24 08:52 IV 15 mls/hr .Q48H CATALINO Administration Insulin Human Lispro 1 - 6 unit 10/20/24 10:15 Insulin Lispro 100 Unit/Ml Insuln.Pen SC Q4H PRN PRN BG>/= 180, SEE PROTOCOL Protocol PFSH Medical History Walker as ambulation aid Hoarseness History of Holter monitoring Postoperative atrial fibrillation Wears hearing aid Wears glasses Post-menopausal Anxiety History of steroid therapy Back pain Blackout Difficulty swallowing History of hiatal hernia History of ulceration Asthma Shortness of breath on exertion Non-smoker Leg cramps History of pain when walking History of echocardiogram History of transesophageal echocardiography (SRIDEVI) Cardiology follow-up encounter Sacral nerve stimulator present Dyspnea Hypoglycemia Vestibular migraine OAB (overactive bladder) Vertigo Vitamin D deficiency GERD (gastroesophageal reflux disease) Hiatal hernia Solitary kidney, acquired Mitral valve prolapse Cardiac murmur Syncope and collapse Hypertension Arthritis Home Medications Medication Instructions Recorded Last Taken Type pantoprazole 20 mg tablet,delayed 20 mg PO DAILY 01/0510/20/24 History release (Protonix) aspirin 81 mg tablet,delayed 81 mg PO QDAY 04/10/24 History release (Adult Low Dose Aspirin) cholecalciferol (vitamin D3) 25 25 mcg PO QDAY 5 10/19/24 History mcg (1,000 unit) capsule glucosam 750 mg-chondroi 100 1 tab PO DAILY 05/14/24 0 10/19/24 History mg-hyalur 1.65 mg-CF borate 108 mg tablet ([facility] [employer] [facility]) nebivolol 2.5 mg tablet 2.5 mg PO QDAY #30 tabs 09/0710/18/24 Rx gabapentin 300 mg capsule 300 mg PO TID 10/08/2410/18 History methocarbamol 500 mg tablet 500 mg PO 4X/DAY PRN Muscl e 10/08/24 10/18/24 Rx pain/spasm #40 tabs ondansetron 4 mg disintegrating 4 mg PO TID PRN nausea and 10/08/24 Unknown Rx tablet vomiting #21 tabs Allergy/AdvReac Type Severity Reaction Status Date / Time oxycodone Allergy Severe Nausea Verified 10/20/24 08:47 omeprazole Allergy Intermediate Vomiting Verified 10/20/24 08:47 Sulfa (Sulfonamide Allergy Mild Itching Verified 10/20/24 08:47 Antibiotics) codeine Allergy Vomiting Verified 10/20/24 08:47 methylprednisolone (From AdvReac Severe Itching Verified 10/20/24 08:47 Medrol) Family History Aunt Breast cancer Mother Pancreatic cancer Brother Pancreatic cancer Cancer of blood vessel Surgical History S/P mitral valve repair S/P inguinal hernia repair History of cardiac catheterization Hx of right cataract extraction Hx of left cataract extraction History of esophagogastroduodenoscopy (EGD) Hx of colonoscopy History of back surgery Hx of cholecystectomy Total knee replacement status History of hysterectomy History of kidney surgery Social History Smoking Status: Never smoker alcohol intake: never substance use type: does not use what type of physical activity do you participate in: walking seatbelt use: always do you feel safe at home: Yes additional social history: patient is retired from [employer] after 41 years [employer]- works at [employer] Review of Systems (Anesthesia) ROS Narrative System reviewed and no additional complaints, except as documented. Physical Exam Narrative Patient with spinal cord stimulator in place, [employer] device remote at bedside to be turned off by spine surgery service. Const alert and oriented x3 HEENT dentition normal Resp normal respiratory effort and normal air movement Neuro oriented x3
--- NOTE | 2024-10-20 10:16 | PCM.HP.BLA ---
History and Physical Date of Admission: 10/20/24 MR#: [id number] Acct: [id number] Name: MARTA MACHUCA Rep #: [id number] : 1945 Provider: Dr. Curt Kendrick MD Age/Sex: 78/F Location[place] [facility] [place] Status: Signed Intake Vital Signs 10/15/2509:07 Height 5 ft 2 in Weight: 153 lb 6 oz BMI 28.0 Intake Visit Reasons: lumbar spine Allergies oxycodone Allergy (Severe, Verified 10/17/24 09:22) Nauseaomeprazole Allergy (Intermediate, Verified 10/17/24 09:22) VomitingSulfa (Sulfonamide Antibiotics) Allergy (Mild, Verified 10/17/24 09:22) Itchingcodeine Allergy (Verified 10/17/24 09:22) Vomitingmethylprednisolone (From Medrol) Adverse Reaction (Severe, Verified 10/17/24 09:22) Itching Medications Medication Instructions Recorded Confirmed Type pantoprazole 20 mg tablet,delayed 20 mg PO DAILY 01/05/22 10/17/24 History release (Protonix) aspirin 81 mg tablet,delayed 81 mg PO QDAY 04/10/24 10/17/24 History release (Adult Low Dose Aspirin) cholecalciferol (vitamin D3) 25 25 mcg PO QDAY 05/14/24 10/17/24 History mcg (1,000 unit) capsule glucosam 750 mg-chondroi 100 1 tab PO DAILY 05/14/24 10/17/24 History mg-hyalur 1.65 mg-CF borate 108 mg tablet ([facility]) nebivolol 2.5 mg tablet 2.5 mg PO QDAY #30 tabs 09/19/24 10/17/24 Rx gabapentin 300 mg capsule 300 mg PO TID 10/08/24 10/17/24 History methocarbamol 500 mg tablet 500 mg PO 4X/DAY PRN Muscle 10/08/24 10/17/24 Rx pain/spasm #40 tabs ondansetron 4 mg disintegrating 4 mg PO TID PRN nausea and 10/08/24 10/17/24 Rx tablet vomiting #21 tabs Have you fallen in the past year?: No PFSH Medical History Walker as ambulation aid Hoarseness History of Holter monitoring Postoperative atrial fibrillation Wears hearing aid Wears glasses Post-menopausal Anxiety History of steroid therapy Back pain Blackout Difficulty swallowing History of hiatal hernia History of ulceration Asthma Shortness of breath on exertion Non-smoker Leg cramps History of pain when walking History of echocardiogram History of transesophageal echocardiography (SRIDEVI) Cardiology follow-up encounter Sacral nerve stimulator present Dyspnea Hypoglycemia Vestibular migraine OAB (overactive bladder) Vertigo Vitamin D deficiency GERD (gastroesophageal reflux disease) Hiatal hernia Solitary kidney, acquired Mitral valve prolapse Cardiac murmur Syncope and collapse Hypertension Arthritis Surgical History S/P mitral valve repair S/P inguinal hernia repair History of cardiac catheterization Hx of right cataract extraction Hx of left cataract extraction History of esophagogastroduodenoscopy (EGD) Hx of colonoscopy History of back surgery Hx of cholecystectomy Total knee replacement status History of hysterectomy History of kidney surgery Family History Aunt Breast cancerMother Pancreatic cancerBrother Pancreatic cancer Cancer of blood vessel Social History Smoking Status: Never smoker alcohol intake: never substance use type: does not use what type of physical activity do you participate in: walking seatbelt use: always do you feel safe at home: Yes additional social history: patient is retired from [employer] after 41 years [employer]- works at [employer] lumbar spine Details: This documentation accurately reflects the service provided and the decisions made by me, Dr. Curt Kendrick MD 10/17/24 [id number]. Part of today’s visit was documented by Juani CLARK, acting as scribe. MARTA MACHUCA is a 78 year old F here today for pre-op lumbar spine, lumbar laminectomy discectomy L4-5, dos: 10/20/24. The patient is an 78-year-old female presenting with worsening lumbar disc herniation and associated foot drop. She has a history of lumbar disc herniation, initially treated with surgery in 2020, which provided significant relief at the time. Recently, she has experienced a recurrence of symptoms, including pain radiating down the left leg to the big toe, and new onset of foot drop over the past two weeks. The patient has a history of spondylolisthesis, noted as a long-term condition with vertebral slippage at L4-S1, contributing to her back pain and instability. She also has osteoporosis, which complicates surgical options due to low bone density. She has special questions replacement Dr. Rubin 2 years ago. This helps with her right-sided posterior hip pain and she continues to use it. In March of the previous year, the patient underwent mitral valve repair at the [facility], performed by Dr. Corcoran, with follow-up care by Dr. Alejandro. She reports no current cardiac symptoms and is managed on baby aspirin and Bystolic. 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 She avoids NSAIDs due to her renal history and manages pain with Tylenol. The patient is allergic to steroids, experiencing itching with administration, and has a noted intolerance to opioids, preferring to avoid them postoperatively. Attestation: Documentation on this patient encounter was supported using ambient scribe technology/ voice AI technology. The patient consented to recording for the purpose of documenting the encounter. Provider reviewed content of the generated note prior to signature. 10/15/24: MARTA MACHUCA is a 78 year old F here today for low back pain. She states that she has the same thing 4 years ago and had a ruptured disc. She then had seen Dr. Ochoa who ended up doing surgery which took away her pain up until a few weeks ago. She states that her pain now feels exactly like it did 4 years ago. She states that her pain can go across her low back but is mainly on the left side and radiates into her left hip and down the leg. She feels that she has hardly any use of her left leg and has to "throw" her left in front of her. She gets pain that extends down the left leg down the back and also notices numbness. Says that this stops at the knee. Says that she has also noticed big toe pain on the left. She does have numbness and tingling in the leg as well. Says that she has pain at all times however it worsens when she is standing or walking. She denies physical therapy. She denies any recent injections with pain management. She does have a spinal cord stimulator that used to help with her pain but it is no longer helpful. She states that she has 1 kidney, open heart surgery 6 months ago and the 1 month prior to her heart surgery she had a hernia repair. She take low dose aspirin since the open heart surgery. She did have a recent MRI on 10/09/24 that was ordered by her PCP. When she was discharged from the hospital she was prescribed oxycodone, prednisone, gabapentin and methocarbamol. She did not take the oxycodone but did finish the prednisone yesterday and has been taking the gabapentin and methocarbamol. The prednisone did help take the edge off of her pain. Hx of osteoporosis, takes vitamin D. She has been using a walker and cane over the last several weeks, prior to this new onset of pain she has not required any ambulatory devices. The patient presented today in a wheelchair. No diabetes, open heart sx last March, takes a baby aspirin, sees cardiology. Hx of midline incision from hysterectomy. Right side incision from kidney removal. She had a lumbar laminectomy discectomy L5-S1 on the left with Dr. Ochoa in 2020. Ortho Exam General General: Yes no acute distress Neurologic: Yes alert and Yes oriented x3 Psychologic: Yes reasonable and appropriate Spine SPINE TESTING CERVICAL THORACIC LUMBAR Musculoskeletal Strength 0=absent - 5=normal Details: Neurological exam of the lower extremities shows grade 3 left ankle dorsiflexion consistent with a foot drop, patient unable to fully extend her left leg and raise it up due to increased pain, patient also unable to flex her hip on the strength exam due to increased pain. Right side showed normal grade 5 power. Normal sensations across all dermatomes. No hyperreflexia, however the exam was limited due to the patient being unable to get on the exam table due to increased pain and difficulty walking. There is a mild midline and left paraspinal tenderness. Physical examination of the back shows a well-healed midline incision and slightly to the left paraspinal incision Coding Level of Care Code Off vis,est,level 5 Diagnoses Lumbar disc herniation with radiculopathy M51.16 Lumbar stenosis with neurogenic claudication M48.062 Foot drop, left M21.372 Spondylolisthesis, lumbar region M43.16 Osteopenia determined by x-ray M85.80 Time Spent (min) 45 Assessment and Plan Assessment and Plan (1) Lumbar disc herniation with radiculopathy: Status: Acute (2) Lumbar stenosis with neurogenic claudication: Status: Acute (3) Foot drop, left: Status: Acute (4) Spondylolisthesis, lumbar region: Status: Acute (5) Osteopenia determined by x-ray: Status: Acute Plan X-rays show a dextroscoliosis, disc height loss at L4-5 and L5-S1, there is a mild spondylolisthesis of L4 on L5 and L5 on S1 with mild dynamic instability. X-rays also show a stimulator. X-rays also show low bone density. No acute fractures. Reviewed lumbar MRI from October 09, 2024 which shows L4-5 left paracentral and central disc extrusion which migrates superiorly on the left, this results in moderate spinal canal stenosis and moderate bilateral foraminal stenosis. L5-S1 anterolisthesis with postsurgical changes on the left and a disc bulge which results in moderate central canal stenosis and moderate foraminal stenosis. 1. Lumbar disc herniation - Plan for a smaller surgery to remove the herniated disc at L4-5, aiming to alleviate nerve compression and improve foot drop. - Surgery scheduled to avoid larger fusion due to osteoporosis. 2. Spondylolisthesis - Continue monitoring; no immediate surgical intervention planned due to low bone density and current focus on disc herniation. 3. Osteoporosis - Continue current management with vitamin D and monitor bone density. 4. Mitral valve repair - Continue follow-up with caltrans equipment operator, maintain current medications including baby aspirin and Bystolic. 5. Foot drop - Post-surgery, consider foot drop brace if immediate improvement is not observed. 6. Congenital kidney anomaly - Continue avoiding NSAIDs, manage pain with Tylenol. 7. Allergy to steroids - Avoid steroid use during and post-surgery. 8. Opioid intolerance - Plan to use tramadol for postoperative pain management, avoid opioids. - Prepare for surgery by following pre-operative instructions provided by the surgical team. - Avoid NSAIDs and manage pain with Tylenol as needed. - Follow up with your caltrans equipment operator as scheduled and continue current heart medications. - Use a foot drop brace if recommended post-surgery to prevent tripping. - Avoid opioids for pain management; use tramadol if necessary. Discussed that although she has spondylolisthesis, decompression fusion would be risky considering severe osteopenia. I would recommend decompression procedure with laminectomy discectomy to give the best opportunity for the foot drop to improve and the radicular symptoms to get better. She may still require fusion surgery in the future if she has persistent mechanical back pain symptoms. Surgery will be L4-5 left laminectomy discectomy decompression on an urgent basis. Discussed this procedure in detail and explained the risks, benefits and alternatives. The risks include but are not limited to infection, bleeding, hematoma formation, need for further surgery, need nerve root injury, persistent pain, persistent numbness and weakness, foot drop, DVT, pulmonary embolism, pneumonia, atelectasis, cardiopulmonary event, iatrogenic instability, need for fusion in future, recurrent disc herniation. Answered all questions to the patient’s satisfaction. Patient understands and agrees to proceed with surgery. Consent was signed.
--- NOTE | 2024-10-20 10:55 | RAD_ITS ---
PROCEDURE: LUMBAR SPINE 2 OR 3 VIEWS 10/20/2024 REASON FOR EXAM: LUMBAR LAMINECTOMY, DISCECTOMY, L4-5 TECHNIQUE: LUMBAR SPINE 2 OR 3 VIEWS COMPARISON: Lumbar spine study dated 10/15/2024 FINDINGS: Intraoperative fluoroscopic images were obtained and demonstrate a radiopaque marker posterior to the L3-L4 disc space and a radiopaque marker seen posterior to the L4-L5 disc space. The total fluoroscopy time was 7.2 seconds. RAD/Lumbar Spine 2 or 3 Views IMPRESSION: Intraoperative fluoroscopic images were obtained and demonstrate a radiopaque m arker posterior to the L3-L4 disc space and a radiopaque marker seen posterior to the L4-L5 disc space. The total fluoroscopy time was 7.2 seconds. Reading Location: [id number]
[2024-10-20] MEDS: Dexamethasone IV Preserv Free 10 MG/ML VIAL IV (12:38)
--- NOTE | 2024-10-20 13:16 | OP.PCM_ITS ---
Procedures Musculoskeletal 20xxx-29xxx: Other Procedure See Report Operative Report (Standard) Operative Information Date of Procedure: 10/20/24 Pre-Operative Diagnosis: L4-5 central and left sided disc herniation with superior migration, left foot drop Post-Operative Diagnosis: Same Surgery/Procedure Performed: Left L4 hemilaminectomy, discectomy, partial facetectomy, decompression of left L4 and L5 nerve roots cleaner operator: Yes Foot Roentgenologist: Marci Phoenix Tasks completed by first officer and flight instructor: Closing, Hemostasis: Electrocautery and Retracting Type of Anesthesia: General RN Documented Start/Stop Times: Operation Date: 10/20/24 10:15 Case Time Into Pre-Op 10/20/24 08:15 Anesthesia Start 10/20/24 10:30 Into Room 10/20/24 10:30 Procedure Start 10/20/24 11:06 Procedure End 10/20/24 13:04 Anesthesia End 10/20/24 13:12 Out of Room 10/20/24 13:12 Procedure Start Time: 11:06 Procedure Stop Time: 13:04 Select all DRAINS/GRAFTS/IMPLANTS that apply: None Estimated Blood Loss: 30 cc Specimen collected: No Description of surgery: Preoperative diagnosis: L4-5 central and left sided disc herniation with superior migration, left foot drop, prior L5-S1 left laminotomy, prior spinal cord stimulator placement Postoperative diagnosis: Same Name of procedure: Left L4 hemilaminectomy, discectomy, partial facetectomy, decompression of left L4 and L5 nerve roots. Decompression of left L5 nerve root CPT 06522 Decompression of left L4 nerve root CPT 84738 Attending Surgeon: Dr. Curt Kendrick Estimated blood loss: 30 mL Anesthesia: General Indications: Patient is a 78-year-old lady who presented with low back pain and severe left lower extremity radiation with left foot drop. MRI revealed L4-5 central and left paracentral disc herniation with superior migration going up to the L3-4 disc. All options of treatment were discussed which included continued nonoperative treatment measures like rest physical therapy, injections. Due to the presence of severe weakness and foot drop, patient requested surgical intervention for microdiscectomy. All risks and benefits associated with the procedure were explained to the patient. The risks include but are not limited to infection, bleeding, injury to nerves and vessels, persistent paresthesia, incidental dural tear, recurrent disc herniation, spinal instability and need for fusion or other procedures in future, persistent pain, persistent weakness and numbness, etc. Procedure: The patient was identified in the preoperative holding suite using Unique patient identifiers. Skin was marked, consent was reviewed, and all questions were answered. The patient was then brought back to the operative room. A surgical timeout was performed to make sure correct procedure was being done on the correct patient and all operative room staff were on the same page. General endotracheal anesthesia was then given to the patient. The patient was then turned prone onto a Bertram table over a Vinnie frame. The back was prepped and draped in usual fashion. Preoperative antibiotic was given. A final timeout was then again done just before starting the procedure. An AP view of the C arm was taken to maribel out the incision to stay just inferior to the SCS leads which are passing the midline. An incision was then carried out over the previous scar in the midline. Bovie was utilized to dissect through the subcutaneous tissue up to the fascia. The fascia was bovied at the spinous process. Subperiosteal dissection was carried out along the left side of the spinous process and the lamina. This dissection was stopped at the level of the medial capsule of the facet joint. Lateral edge of the left L4 pars was also identified. A Melvina was then placed under the inferior edge of the lamina and a C-arm lateral view was repeated. The level was confirmed to be the L4-5 interspace. L3-4 interspace was also exposed. Left L4 hemilamina was completely exposed from inferior to superior edge. A Mohr retractor of appropriate depth was then placed to provide retraction throughout the remainder of the surgery. A yasmine was then utilized to make a left L4 hemilaminectomy window medial to the facet and lateral to the spinous process. Care was taken to preserve at least 1 cm of bone from the lateral border of the pars. Once the bone was thinned out a Kerrison rongeur was utilized to complete the hemilaminectomy. The ligamentum flavum at both the L4-5 and L3-4 interspaces was then removed with the help of pituitaries and Kerrison rongeurs. Ligamentum flavum in the lateral recess was then removed with Kerrison rongeur. The dura and traversing nerve root were then identified with the help of a [place] #4. A nerve root retractor was then utilized to retract the dura and the traversing left L5 nerve root medially. Using a ball-tipped nerve hook disc fragments were teased out and removed piecemeal. Superior exploration up to the axilla of the left L4 nerve root was performed to make sure all superiorly migrated disc fragments were removed. Partial left L4-5 facetectomy was performed to decompress the lateral recess and left L5 nerve root. Left L4 nerve root was also decompressed into the left L4 foramen. A cruciate incision over the L4-5 disc annulus was performed. Disc fragments were then teased out with the help of a nerve hook and [place]. The nerve hook and Melvina were then used to probe inferiorly and superiorly and medially to tease out more disc fragments. Loose fragments from the midline as well as slightly to the right of midline were removed using the bulb point nerve hook. Further loose disc fragments from the disc space were also removed with help of pituitary. Irrigation of the disc space through an Angiocath was performed to remove any further loose disc fragments. once adequate decompression was obtained by removal of all loose disc fragments including the ones that were extruded, irrigation was done with normal saline. Irrisept was kept in the wound for 1 minute. Valsalva maneuver up to 40 mmHg sustained was used to confirm no CSF leak. 10 mg of preservative-free dexamethasone was then sprinkled over the traversing nerve root. A small piece of Gelfoam was then placed over the bony window. The Mohr retractor was then removed. And closure was done in layers, 0 Vicryl for the deep fascia, 2-0 Vicryl for subcutaneous tissue, and eleuterio for the skin. The deep fascial layer was closed in a watertight fashion with interrupted 0 Vicryl. 4 x 4 gauze was then placed over the wound covered with Tegaderm. The patient was then turned supine onto a hospital bed. The patient was extubated and taken to PACU in stable condition. The patient tolerated the procedure well and no complications occurred. Estimated blood loss for the entire surgery was 30 mL. No instrumentation was utilized in this case. No dural tear occurred in this case. I was present for the entirety of the case and performed the surgery myself. Surgical Findings: See operative note Complications Complications: No
--- NOTE | 2024-10-20 13:19 | PCM.POST.ANE ---
Anesthesia: Postop Eval I Current Vital Signs Temperature: 97.8 F Pulse Rate: 83 Blood Pressure: 151/84 Respiratory Rate: 14 Pulse Ox: 94 Assessment Airway patent: Yes Spontaneous unlabored respirations: Yes nausea: No Vomiting: No Anesthesia Complication: No Fluid Hydration Crystalloid volume administer (ml): 1,400 Total IV fluid infused: 1,400 Progress Note Anesthesia document: Postop Eval 1 completed: Yes
--- NOTE | 2024-10-20 15:42 | POSTOPAN2_ITS ---
Anesthesia Postop Eval I Sum Postop Eval Completion status Anesthesia document: Postop Eval 1 completed: Yes Anesthesia Postop Eval I Summary Anesthesia Postop Eval I Summary: Anesthesia Postop Eval I: Assessment Summary Airway patent Yes 10/20/24 13:19 [email or web address] Spontaneous unlabored Yes 10/20/24 13:19 [email or web address] respirations Mental status nausea No 10/20/24 13:19 [email or web address] Vomiting No 10/20/24 13:19 [email or web address] Anesthesia Postop Eval I: Fluid Summary Crystalloid volume administer 1,400 10/20/24 13:19 [email or web address] (ml) Colloids volume administered ( ml) Blood Product volume administered (ml) Total IV fluid infused 1,400 10/20/24 13:19 [email or web address] Anesthesia Postop Eval I: Summary Notes Anesthesia Complication No 10/20/24 13:19 [email or web address] Anesthesia Complication Comment: Post-operative progress note Anesthesia: Postop Eval II Evaluation Mental status: Awake and Calm Pain Level: 3 nausea: No Vomiting: No Complications Anesthesia Complication: No
--- NOTE | 2024-10-20 15:42 | PCM.POSTANE2 ---
Anesthesia Postop Eval I Sum Postop Eval Completion status Anesthesia document: Postop Eval 1 completed: Yes Anesthesia Postop Eval I Summary Anesthesia Postop Eval I Summary: Anesthesia Postop Eval I: Assessment Summary Airway patent Yes 10/20/24 13:19 [email or web address] Spontaneous unlabored Yes 10/20/24 13:19 [email or web address] respirations Mental status nausea No 10/20/24 13:19 [email or web address] Vomiting No 10/20/24 13:19 [email or web address] Anesthesia Postop Eval I: Fluid Summary Crystalloid volume administer 1,400 10/20/24 13:19 [email or web address] (ml) Colloids volume administered ( ml) Blood Product volume administered (ml) Total IV fluid infused 1,400 10/20/24 13:19 [email or web address] Anesthesia Postop Eval I: Summary Notes Anesthesia Complication No 10/20/24 13:19 [email or web address] Anesthesia Complication Comment: Post-operative progress note Anesthesia: Postop Eval II Evaluation Mental status: Awake and Calm Pain Level: 3 nausea: No Vomiting: No Complications Anesthesia Complication: No
--- NOTE | 2024-10-20 17:06 | CON.PCM.HO_ITS ---
Assessment & Plan Assessment/Plan (1) Lumbar disc herniation with radiculopathy: PLAN: Plan This 78-year-old female is being admitted for elective surgery of L4-5 disc herniation 1. Perioperative management for L4-5 central and left-sided disc herniation with superior migration and left foot drop: Patient is being admitted to [facility]. Patient had a left L4 hemilaminectomy, discectomy, partial facetectomy, decompression of left L4 and L5 nerve roots on 10/20/2024. She can extend her left great toe and left her foot. Bowel and bladder care. Pain management and muscle relaxant. DVT prophylaxis as per discretion of operating surgeon. Incentive spirometry. Preoperative H&H 12.2/38% and platelet count 272K in September 2024 2. Severe MR, mitral valve repair, transient postoperative atrial fibrillation: Preop twelve-lead EKG shows sinus rhythm with short IN, premature supraventricular and ventricular Complexes at 90 bpm. Patient follows [facility]. Previously she had severely enlarged LA, elevated left atrial filling pressure, mitral valve posterior leaflet prolapse with moderately severe anteriorly directed MR Last echo 07/04/2024 report Status post mitral valve repair with annuloplasty ring. Normal LV size. Left ventricular systolic function is normal. The left ventricular ejection fraction is 55 %. Pulmonary artery systolic pressure is 30 mmHg. No acute chest pain pressure redness or shortness of breath. Continue home cardiac medications 3. Hypertension: Blood pressure is 132/79 -147/84. Patient had elevated blood pressure during surgery but currently is in normal range. Monitor BP. Antihypertensive medication continue with holding parameters. 4. Mild hyperglycemia, prediabetes: Patient glucose 105, 106 in August and September 2024. A1c 5.9% suggestive of prediabetes 5. Chronic degenerative arthritis: PT and OT ordered. Microbiology Past 72 Hours 10/17/24 10:35 Swab (Method) Nasal Screen MRSA/MSSA - Final Laboratory Results 10/20/24 08:34: POC Glucose 76 HPI Consult Data Date of Consult: 10/20/24 HPI Narrative Reason for Consultation: Perioperative management of L4-L5 discectomy HPI Narrative: MARTA MACHUCA, is a 78 F who is admitted after elective surgery for L4-5 central and left-sided disc herniation with superior migration and left foot drop. Patient had a left L4 hemilaminectomy, discectomy, partial facetectomy, decompression of left L4 and L5 nerve roots. Patient voided urine twice after surgery. She complained of no back pain. He had lower lumbar back pain with radiation to pain in left lower extremity to left great toe. Previously she was not able to raise her left foot or extend toe but she is now able to do it. The patient had open heart surgery with mitral valve repair including [facility] about 7 months ago. Denies any acute chest pain pressure or tightness. No acute shortness of breath. She had bowel movement in the morning today [facility] Medical History Walker as ambulation aid Hoarseness History of Holter monitoring Postoperative atrial fibrillation Wears hearing aid Wears glasses Post-menopausal Anxiety History of steroid therapy Back pain Blackout Difficulty swallowing History of hiatal hernia History of ulceration Asthma Shortness of breath on exertion Non-smoker Leg cramps History of pain when walking History of echocardiogram History of transesophageal echocardiography (SRIDEVI) Cardiology follow-up encounter Sacral nerve stimulator present Dyspnea Hypoglycemia Vestibular migraine OAB (overactive bladder) Vertigo Vitamin D deficiency GERD (gastroesophageal reflux disease) Hiatal hernia Solitary kidney, acquired Mitral valve prolapse Cardiac murmur Syncope and collapse Hypertension Arthritis Home Medications Medication Instructions Recorded Last Taken Type pantoprazole 20 mg tablet,delayed 20 mg PO DAILY 01/0510/20/24 History release (Protonix) aspirin 81 mg tablet,delayed 81 mg PO QDAY 04/10/24 History release (Adult Low Dose Aspirin) cholecalciferol (vitamin D3) 25 25 mcg PO QDAY 5 10/19/24 History mcg (1,000 unit) capsule glucosam 750 mg-chondroi 100 1 tab PO DAILY 05/14/24 0 10/19/24 History mg-hyalur 1.65 mg-CF borate 108 mg tablet ([facility]) nebivolol 2.5 mg tablet 2.5 mg PO QDAY #30 tabs 09/0710/18/24 Rx gabapentin 300 mg capsule 300 mg PO TID 10/08/2410/18 History methocarbamol 500 mg tablet 500 mg PO 4X/DAY PRN Muscl e 10/08/24 10/18/24 Rx pain/spasm #40 tabs ondansetron 4 mg disintegrating 4 mg PO TID PRN nausea and 10/08/24 Unknown Rx tablet vomiting #21 tabs Allergy/AdvReac Type Severity Reaction Status Date / Time oxycodone Allergy Severe Nausea Verified 10/20/24 08:47 omeprazole Allergy Intermediate Vomiting Verified 10/20/24 08:47 Sulfa (Sulfonamide Allergy Mild Itching Verified 10/20/24 08:47 Antibiotics) codeine Allergy Vomiting Verified 10/20/24 08:47 methylprednisolone (From AdvReac Severe Itching Verified 10/20/24 08:47 Medrol) Family History Aunt Breast cancer Mother Pancreatic cancer Brother Pancreatic cancer Cancer of blood vessel Surgical History S/P mitral valve repair S/P inguinal hernia repair History of cardiac catheterization Hx of right cataract extraction Hx of left cataract extraction History of esophagogastroduodenoscopy (EGD) Hx of colonoscopy History of back surgery Hx of cholecystectomy Total knee replacement status History of hysterectomy History of kidney surgery Social History Smoking Status: Never smoker alcohol intake: never substance use type: does not use what type of physical activity do you participate in: walking seatbelt use: always do you feel safe at home: Yes additional social history: patient is retired from [employer] after 41 years [employer]- works at [employer] / [employer] Labs: Laboratory Results - last 24 hr 10/20/24 08:34: POC Glucose 76 Imaging Radiology Impression Lumbar Spine X-Ray 10/20/24 10:55 IMPRESSION: Intraoperative fluoroscopic images were obtained and demonstrate a radiopaque marker posterior to the L3-L4 disc space and a radiopaque marker seen posterior to the L4-L5 disc space. The total fluoroscopy time was 7.2 seconds. Reading Location: [id number] Charges/Coding Visit Charges Office Visits / Consults: 32419 OV L4 Est 30min
[2024-10-20] MEDS: Cefazolin 2 GM in 0.9% Normal Saline (100mL Bag) 100 ML IV (17:34)
[2024-10-20] MEDS: Senna/Docusate Sodium 1 Tablet 2 TABLET PO (22:14)
[2024-10-21 00:58] VITALS: BP 133/77; PULSE 78; RESP 16; TEMP 36.4; O2SAT 94
[2024-10-21] MEDS: Cefazolin 2 GM in 0.9% Normal Saline (100mL Bag) 100 ML IV (02:01)
[2024-10-21 05:39] VITALS: BP 135/86; PULSE 80; RESP 16; TEMP 36.4; O2SAT 96
[2024-10-21 05:51] LABS: Hematocrit 34.9 % (37-47); Hemoglobin 11.4 g/dL (12.0-15.0); Immature Granulocytes Count 0.120 X10^3/uL (0.0-0.0); Mean Corp Hgb Conc 32.7 g/dL (32-36); Mean Corpuscular Volume 85.7 fL (81-99); Mean Platelet Vol. 11.3 fl (6.2-12.0); NRBC Flagged by Analyzer 0 % (0-5); Platelet Count 218 K/mm3 (150-450); RBC Distribution Width CV 14.7 % (11.6-14.6); RBC Distribution Width SD 46.5 fl (35.1-43.9); Red Blood Count 4.07 M/mm3 (4.2-5.4); White Blood Count 10.9 K/mm3 (4.4-11.0)
[2024-10-21 06:11] LABS: Anion Gap 10 (5-15); BUN 11 mg/dL (4-19); BUN/Creat Ratio 12.1 RATIO (10-20); Calcium,Total 8.8 mg/dL (7.6-11.0); Carbon Dioxide 23.7 mmol/L (21.0-32.0); Chloride 107 mmol/L (98-108); Estimated Creatinine Clearance 46.76 ml/min (50-250); Glucose 166 mg/dL (70-99); Potassium 4.2 mmol/L (3.3-5.1)
[2024-10-21 07:40] VITALS: BP 131/69; PULSE 78; RESP 14; TEMP 37; O2SAT 96
[2024-10-21] MEDS: Senna/Docusate Sodium 1 Tablet 2 TABLET PO (08:37)
[2024-10-21] MEDS: Aspirin E.C. 81 MG Tablet PO (08:37)
--- NOTE | 2024-10-21 09:50 | CASEMGMT ---
Pt with dc order in, spoke with PT who just finished eval. Plan for OP therapy per Dr. Kendrick. Pt has a walker at home.
[2024-10-21 10:20] VITALS: BP 129/53; PULSE 91; RESP 16; TEMP 36.6; O2SAT 97
--- NOTE | 2024-10-21 15:01 | PCM.PN.ORT ---
Subjective Subjective Post op day 1 hemilaminectomy, discectomy, partial facetectomy, decompression of left L4 and L5 nerve roots. Patient has been up and walking. Patient denies any back pain. Patient says that she was having some left-sided leg pain when the SCDs were applied. Says that it has been better since she removed the SCD. Patient was seen at the bedside today. Discussed with Dr. Kendrick. Objective Data Objective Data Vital Signs: Vital Signs Temp Pulse Resp BP Pulse Ox O2 Del Method O2 Flow Rate 97.8 F 91 16 129/53 H 97 Room Air 4 10/21/24 10:20 10/21/24 10:20 10/21/24 10:20 10/21/24 10:20 10/21/24 10:20 10/21/24 10:20 10/20/24 14:15 FiO2 4 10/20/24 13:20 Oxygen Flow Rate (L/min) 4 Oxygen Delivery Method Room Air Weight: 154 lb 8.19 oz Body Mass Index (BMI) 28.2 Intake & Output: Intake and Output for Last 24 Hours 10/19/24 10/20/24 10/21/24 23:59 23:59 23:59 Intake Total 251.5 / 451.5 510 / 510 Output Total Balance 226.5 / 426.5 510 / 510 Lab / Micro Data 10/21/24 05:36 10/21/24 05:36 Labs: Laboratory Results - last 24 hr 10/21/24 05:36: WBC 10.9, RBC 4.07 L, Hgb 11.4 L, Hct 34.9 L, MCV 85.7, MCH 28.0, MCHC 32.7, RDW Std Deviation 46.5 H, RDW Coeff of Yousuf 14.7 H, Plt Count 218, MPV 11.3, Immature Gran % (Auto) 1.100 H, Neut % (Auto) 89.8 H, Lymph % (Auto) 5.9 L, [place] % (Auto) 2.9, Eos % (Auto) 0.1, Baso % (Auto) 0.2, Absolute Neuts (auto) 9.8 H, Absolute Lymphs (auto) 0.64 L, Nucleated RBC % 0, Sodium 140, Potassium 4.2, Chloride 107, Carbon Dioxide 23.7, Anion Gap 10, BUN 11, Creatinine 0.88, Estim Creat Clear Calc 46.76 L, Est GFR (MDRD) Non-Af 66, BUN/Creatinine Ratio 12.1, Glucose 166 H, Calcium 8.8 Micro: Microbiology 10/17/24 10:35 Swab (Method) Nasal Screen MRSA/MSSA - Final Physical Exam Narrative Neurological exam of the lower extremities showed grade 2 foot drop left foot, slightly improved from before surgery. Normal sensations across all dermatomes. No hyperreflexia. Physical examined in the back shows surgical dressing CDI. Const alert, oriented x3 and no apparent distress Assessment & Plan Assessment/Plan (1) Status post lumbar spine operation: PLAN: Plan Postop day 1 hemilaminectomy, discectomy, partial facetectomy, decompression of left L4 and L5 nerve roots. Patient has walked with PT/OT who is cleared her for home discharge. Patient has been ambulating with a walker, prior to the onset of her low back pain and leg pain 3 to 4 weeks ago she did not need to use any ambulatory devices. Reviewed left foot drop brace with family. Plan is to order one from online. Reviewed restrictions of no bending, lifting, twisting. Home-going meds include tramadol, acetaminophen, methocarbamol. She will take the acetaminophen from [id number] at home. Patient is hesitant to take the tramadol but discussed that this is an as needed medication. OARRS reviewed. She will follow-up in the clinic in 2 weeks. Patient is in agreement.
== END 2024-10-21 11:35 | disposition home or self-care (01) ==
LOC: SDC 17:45 → MS3 17:45
PROVIDERS: Anesthesiology; Student in an Organized Health Care Education/Training Program; Admitting Provider Orthopaedic Surgery Orthopaedic Surgery of the Spine; PCP Family Medicine; Referring Provider Orthopaedic Surgery Orthopaedic Surgery of the Spine; Visit Provider Orthopaedic Surgery Orthopaedic Surgery of the Spine
PROC: (CPT 63030; principal; 2024-10-20 09:45)
DX: M51.16 Intervertebral disc disorders with radiculopathy, lumbar region (principal); M43.16 Spondylolisthesis, lumbar region; R29.898 Other symptoms and signs involving the musculoskeletal system; Z96.652 Presence of left artificial knee joint; K21.9 Gastro-esophageal reflux disease without esophagitis; M48.062 Spinal stenosis, lumbar region with neurogenic claudication; M81.0 Age-related osteoporosis without current pathological fracture; I10 Essential (primary) hypertension; M21.372 Foot drop, left foot; Z79.899 Other long term (current) drug therapy; Z79.82 Long term (current) use of aspirin; R73.9 Hyperglycemia, unspecified; J45.909 Unspecified asthma, uncomplicated
CPT/HCPCS: 63047; 63048; 00630; 36415; 72100; 76000; 80048; 82962; 83036; 83735; 85025; 86703; 86706; 86708; 86803; 86850; 86900; 86901; 87081; 94668; 96365; 96366; 97161; 99221; G0378; J3475

== ENCOUNTER → 2025-01-02 | Outpatient (CLI) | payer MEDICARE, BC, SELFPAY ==
[2024-07-16 07:16] VITALS: BMI 27.6
[2025-01-02 10:23] LABS: Hematocrit 38.5 % (37-47); Hemoglobin 12.5 g/dL (12.0-15.0); Immature Granulocytes Count 0.020 X10^3/uL (0.0-0.0); Mean Corp Hgb Conc 32.5 g/dL (32-36); Mean Corpuscular Volume 86.7 fL (81-99); Mean Platelet Vol. 12.0 fl (6.2-12.0); NRBC Flagged by Analyzer 0 % (0-5); Platelet Count 283 K/mm3 (150-450); RBC Distribution Width CV 14.6 % (11.6-14.6); RBC Distribution Width SD 46.4 fl (35.1-43.9); Red Blood Count 4.44 M/mm3 (4.2-5.4); White Blood Count 6.5 K/mm3 (4.4-11.0)
[2025-01-02 10:48] LABS: AST(SGOT) 24 U/L (<=31); Alanine Aminotransfer ALT/SGPT 14 U/L (<=34); Albumin, Serum 3.7 g/dL (3.4-4.8); Alkaline Phosphatase 72 U/L (35-104); Anion Gap 22 (5-15); BUN 21 mg/dL (4-19); BUN/Creat Ratio 21.5 RATIO (10-20); CRP < 3.00 mg/L (0.0-3.0); Calcium,Total 9.0 mg/dL (7.6-11.0); Carbon Dioxide 13.6 mmol/L (21.0-32.0); Chloride 105 mmol/L (98-108); Globulin 2.7 g/dL (2.2-4.2); Glucose 90 mg/dL (70-99); Potassium 4.0 mmol/L (3.3-5.1)
== END | disposition home or self-care (01) ==
LOC: MTLAB 09:17
PROVIDERS: PCP Family Medicine; Referring Provider Internal Medicine Rheumatology; Visit Provider Internal Medicine Rheumatology
DX: M06.4 Inflammatory polyarthropathy (principal); M21.40 Flat foot [pes planus] (acquired), unspecified foot; Z79.899 Other long term (current) drug therapy
CPT/HCPCS: 36415; 80053; 85025; 86140

== ENCOUNTER 2025-02-03 11:00 | Outpatient (RCR) | payer MEDICARE, BC, SELFPAY ==
[2024-07-16 07:16] VITALS: BMI 27.6
--- NOTE | 2024-11-21 13:58 | HP.PTEVAL ---
Patient's Visit Information Visit Information Visit Information: MARTA MACHUCA is a 78 year old F referred to Physical Therapy by MATILDE Quiroga with a diagnosis of POSTPROCEDURAL STATES ,LEFT FOOT DROP. Date of Evaluation: 11/21/24 Physical Therapist: Mingo Ga PT, Cert MDT, OCS Visit Plan Frequency: 2x /Week Duration: 4 Weeks Plan: -s/p Left L4 hemilaminectomy, discectomy, partial facetectomy, decompression of left L4 and L5 nerve roots on 10/20/24 -uses FFW -Has left foot drop and plans to get AFO PT INTERVENTIONS DLS ,POSTURAL EX'S ,BALANCE TRAINING ,BLE STRENGTHENING AND ENDURANCE EX'S Subjective Subjective: This 78 y/o female presents to physical therapy with s/p Left L4 hemilaminectomy, discectomy, partial facetectomy, decompression of left L4 and L5 nerve roots on 10/20/24 at [facility] done by DR Kendrick . Patient d/c home 10/21/24 with FWW. Due patients foot Drop plans to get AFO . Patient presenting with worsening lumbar disc herniation and associated foot drop. She has a history of lumbar disc herniation, initially treated with surgery in 2020, which provided significant relief at the time. Recently, she has experienced a recurrence of symptoms, including pain radiating down the left leg to the big toe, and new onset of foot drop over the past two weeks. The patient has a history of spondylolisthesis, noted as a long-term condition with vertebral slippage at L4-S1, contributing to her back pain and instability. She also has osteoporosis, which complicates surgical options due to low bone density.X-rays show a dextroscoliosis, disc height loss at L4-5 and L5-S1, there is a mild spondylolisthesis of L4 on L5 and L5 on S1 with mild dynamic instability. X-rays also show a stimulator. X-rays also show low bone density. No acute fractures. Reviewed lumbar MRI from October 09, 2024 which shows L4-5 left paracentral and central disc extrusion which migrates superiorly on the left, this results in moderate spinal canal stenosis and moderate bilateral foraminal stenosis. L5-S1 anterolisthesis with postsurgical changes on the left and a disc bulge which results in moderate central canal stenosis and moderate foraminal stenosis.Patient seen PA ,Continue restrictions of no bending lifting or twisting greater than a gallon of milk at this time. Discussed that she can slowly increase this weight over the next 2 months slowly as tolerated.Patient uses FWW and plan to get AFO. 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 Patient ahs min pain and left leg pain. Patient c/o paresthesia/tingling in left foot/leg .Coughing/sneezing -. Bowel/bladder -. Aggravating factors walking/standing . Better rest. Pain affects sleeping. Patients assist with ADLS ,lives in 2 story home with shower grab rails. Spouse does cooking/cleaning. Patient condition affects QOL and function.Prior to surgery did not need walker . Patient goals to decrease pain and walk, SOCAIL : Pain Bilateral Back: Pain Intensity (Out of 10): 2 Pain Intensity Range: 6, 7 and 8 Left Lower Extremity: Pain Intensity (Out of 10): 2 Pain Intensity Range: 7 Objective Objective: POSTURE: mild forward posture GAIT: ambulates with fww left foot drop slow pauline mild forward posture SKIN: incision well approximated BALANCE: fair+ with fww LUMBAR ROM: flexion mod loss ,extension severe loss FLEXABILITY: hamstrings min tight MMT: ( [employer]) hip flexion left 0 ,right 12.7 ,hamstrings left 12.7 ,right 16 .1,quads right 3.7 ,hamstrings 6.9 Special Tests L/S Slump test left side: Negative L/S Slump test right side: Negative L/S Left Straight Leg Raise: Negative L/S Right Straight Leg Raise: Negative Balance/Special Test Scores Oswestry Low Back Score: 33 Goals Goal 1:: Patient to be I with HEP for back Goal Time Frame: 4-6 Weeks Goal 2:: Patient to improve peak force quads/hams/hip by 5-10# to improve gait Goal Time Frame: 4-6 Weeks Goal 3:: Patient to improve lumbar ROM for function of recovery for ADL and put on shoes Goal Time Frame: 4-6 Weeks Goal 4:: Patient to improve back oswestry score by 5 points to improve QOL and function Goal Time Frame: 4-6 Weeks Goal 5:: Patient to improve gait with appropriate device community distances Goal Time Frame: 4-6 Weeks Goal 6:: Patient to demonstrate 50% improvement with improved function. Rehabilitation Potential Physical Therapy Diagnosis: This patient had s/p Left L4 hemilaminectomy, discectomy, partial facetectomy, decompression of left L4 and L5 nerve roots on 10/20/24 with decrease weakness left leg ,poor lumbar ROM ,foot foot left ,impaired gait and balance thus benefit from skilled PTY Rehabilitation Potential: Good Anticipated Interventions Patient/Client Instruction: Educate patient on: Condition and Plan of Care For the Purpose of:: To decrease pain, To increase ROM, To improve muscle performance and motor function, To improve ability to perform ADL's, To increase tolerance to activity/condition/position, To improve ability of physical actions for home/community/work/leisure, To improve gait and locomotor functions, To improve health of tissue, To decrease soft tissue restriction, To increase flexibility/ROM, To improve endurance and To improve balance Therapeutic Exercise to Include: Strength training, Endurance training, Balance training, Postural training, Flexibilty training, Gait and locomotor training, Active ROM and Dynamic Lumbar Stabilization Comment: BLE For the Purpose of:: To decrease pain, To increase ROM, To improve muscle performance and motor function, To increase tolerance to activity/condition/position, To improve ability of physical actions for home/community/work/leisure, To improve gait and locomotor functions, To improve health of tissue, To decrease soft tissue restriction, To increase flexibility/ROM, To improve endurance, To improve balance and To improve tolerance to ADL's Text: Thank you for the opportunity to evaluate your patient. For Medicare and Medicare HMO plans, please review the plan of care and approve it. It will need to be FAXED BACK to us at [phone] for Medicare purposes. For Medicare only, by signing this I certify the plan of care. Please let me know if there are questions or concerns regarding this plan of care. Physician Signature: Date:
== END 2025-02-03 19:00 | disposition home or self-care (01) ==
LOC: PT 11:00
PROVIDERS: PCP Family Medicine; Visit Provider Student in an Organized Health Care Education/Training Program
DX: M21.372 Foot drop, left foot (principal); Z98.890 Other specified postprocedural states
CPT/HCPCS: 97110; 97162; 97530

== ENCOUNTER → 2025-02-26 | Outpatient (CLI) | payer MEDICARE, BC, SELFPAY ==
[2024-07-16 07:16] VITALS: BMI 27.6
--- NOTE | 2025-02-26 10:04 | MRI_ITS ---
PROCEDURE: SPINE LUMBAR W/WO CONTRAST 02/26/2025 REASON FOR EXAM: NEW LEFT NUMBNESS AND TINGLING AFTER DISCECTOMY TECHNIQUE: Procedure Code: [id number] Modality: MR Procedure: SPINE LUMBAR W/WO CONTRAST Multiplanar and multisequence images were obtained without and with intravenous gadolinium-based contrast administration. CONTRAST: Clariscan VOLUME: 14 mL COMPARISON: Lumbar spine x-ray February 24, 2025. FINDINGS: Vertebrae: Hyperintense signal on T2 and T1 at L2 and L3 vertebral bodies stent with hemangiomas. The vertebral bodies are otherwise preserved in height. Alignment: Anterolisthesis L4 on L5 by 3 mm. Anterolisthesis L5 on S1 by 3 mm. Conus Medullaris: Unremarkable. L1-2: No foraminal or canal stenosis. L2-3: Disc bulge. Facet joints arthropathy with fluid effusion. Mild inferior bilateral foramina stenosis. No significant canal stenosis. L3-4: Disc bulge. Facet joint arthropathy. Mild inferior bilateral foramina stenosis. No canal stenosis. L4-5: Uncovered disc bulge. Facet joints arthropathy. Ligamentum flavum hypertrophy. Narrowing of the subarticular space. Severe bilateral foramina stenosis. Status post left laminectomy. L5-S1: Uncovered disc bulge. Facet joints arthropathy. Moderate bilateral foramina stenosis. Mild canal stenosis. Sacrum: Unremarkable. Postcontrast images: No abnormal enhancement. MRI/Spine Lumbar W/WO Contrast IMPRESSION: Status post left laminectomy without abnormal enhancement or acute findings. Otherwise, no significant foraminal or canal stenosis. Reading Location: [id number]
== END | disposition home or self-care (01) ==
LOC: OPMRI 10:03
PROVIDERS: PCP Family Medicine; Referring Provider Student in an Organized Health Care Education/Training Program; Visit Provider Student in an Organized Health Care Education/Training Program
DX: M48.061 Spinal stenosis, lumbar region without neurogenic claudication (principal); M54.16 Radiculopathy, lumbar region; Z98.890 Other specified postprocedural states; R20.0 Anesthesia of skin
CPT/HCPCS: 72158; A9575